=== PATIENT | male | born 1950 | race Caucasian/White ===

== ENCOUNTER 2023-04-16 11:24 | Observation (INO) | payer OTHER ==
--- OUTSIDE RECORDS SUMMARY | 2023-04-16 11:31 | XMS REPORT | Continuity of Care Document ---
:1950 Author Organization [facility] Address [address] [facility] [address] [place] [address] Care Team Providers Name Role Phone PCP, PATIENT DOES NOT HAVE A Primary Care Physician Unavaila [facility]_BAHC_Issa_J Attending Clinician Unavailable DEE DEE ESQUIVEL Attending Clinician Unavailable ZAINAB SENDDANIEL K.H. Attending Clinician Unavailable Jayna Rizvi RN Attending Clinician Ileana Szymanski Attending Clinician Zainab VILLA Senddaniel K.H. Attending Clinician Doctor Unassigned, [place] Attending Clinician Unavailable BLAIR ERVIN Attending Clinician Unavailable BLAIR ERVIN Attending Clinician Unavailable Blair Ervin MD Attending Clinician Lab, Ang - Db Attending Clinician Unavailable PETROS JETER Attending Clinician Unavailable Zak Hernandez Attending Clinician Unavailable Darlene Alvarez RN Attending Clinician Nidia George LVN Attending Clinician ALICIA TALLEY Attending Clinician Unavailable Alicia Talley MD Attending Clinician DANIEL KUNZ Attending Clinician Unavailable Bernardo Rodríguez MD Attending Clinician Dalton Chino DO Attending Clinician Shirley VILLA, Zo Victoria Attending Clinician [phone] Daniel Kunz MD Attending Clinician Dick VILLA, Petar Baig Attending Clinician BERNARDO RODRÍGUEZ Attending Clinician Unavailable GC_BAHC_Todd_J Admitting Clinician Unavailable BLAIR ERVIN Admitting Clinician Unavailable DANIEL KUNZ Admitting Clinician Unavailable Daniel Kunz MD Admitting Clinician BERNARDO RODRÍGUEZ Admitting Clinician Unavailable Payers Payer Name Policy Type Policy Number Effective Date Expiration Date S sharri [place]: [id number] 2022 Vertive ([email or web address].com) 00:00:00 [facility] [id number] 2022 COMMUN[place]AN-[place] - 00:00:00 STAR+PLUS (MEDICAID REPLACEMENT - HMO) [facility] STAR PLUS [id number] 2022 00:00:00 MEDICAID - 000 MOVED-MGRHOLD - PENDING Problems Condition Condition Condition Status Onset Resolution Last Treating Co mments Source Name Details Category Date Date Treatment Clinician Date Abscess of Abscess of Problem Active P [facility] skin Skin 5-08 Medical and/or And/or 00:00: subcutaneo Subcutaneo 00 us tissue us Tissue Vitamin D Vitamin D Problem Active Claudia via deficiency Deficiency 4-03 Me dical 00:00: 00 Nicotine Nicotine Problem Active Privi a dependence Dependence 4-03 Me dical 00:00: 00 Prediabete Prediabete Problem Active P [facility]ia s s 4-03 Medical 00:00: 00 Arthritis Arthritis Problem Active [facility]ia via 2-10 Medical 00:00: 00 Lives in a Lives in a Problem Active 2021-10 P [facility]ia nursing Nursing 2-13 Medical home Home 00:00: 00 Hypoalbumi Hypoalbumi Problem Active 2021-10 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-05 Medi yadiel to protein to Protein 00:00: calorie Calorie 00 malnutriti Malnutriti on on 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 [facility] 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 Deficiency 00:00: disorder Disorder 00 Hypercoagu Hypercoagu Problem Active 2021-10 P [facility]ia lability lability 11-20 Medica l state State 00:00: 00 Atrial Atrial Problem Active 2021-10 [facility] fibrillati Fibrillati 11-20 Me dical on on 00:00: 00 Peripheral Peripheral Problem Active 2021-10 P [facility]ia vascular Vascular 11-20 Medica l disease Disease 00:00: 00 Atrial Atrial Disease Active Univers fibrillati fibrillati 7-07 it y of on on 00:00: [place] [facility] DEBORAH (acute DEBORAH (acute Disease Active U nivers kidney kidney 7-06 ity of injury) injury) 00:00: [place] [facility] CVA CVA Disease Active Univers (cerebral (cerebral 6-24 [place]y of infarction [place] Branch Cerebral Cerebral Disease Active Unive rs infarction infarction 5-30 it y of 00:00: [place] [facility] Slurred Slurred Disease Active Univers speech speech 5-29 ity of 00:00: [place] [facility] Primary Primary Problem Active [facility] 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, Type, senile Senile onset Onset Hypertensi Hypertensi Problem Active P rivia ve heart ve Heart Medica l disease Disease Chronic Chronic Problem Active [facility] obstructiv Obstructiv Me dical e lung e Lung disease Disease Homeless Homeless Problem Active Privi a Medical Nicotine Nicotine Problem Active Privi a dependence Dependence Me dical with with current Current use Use Hyperlipid Hyperlipid Problem Active P rivia emia emia Medical Allergies, Adverse Reactions, Alerts Allergy Allergy Status Severity Reaction(s) Onset Inactive Treating Comm ents Source Name Type Date Date Clinician NO KNOWN Drug Active Univers ALLERGIE Class ity of S [facility] Social History Social Habit Start Date Stop Date Quantity Comments Source History SDOH University o f Alcohol Std Drinks [place] [facility] [place] History [facility] University o f Alcohol Comment [place] [facility] History SDOH University o f Physical Activity [facility] Branch History of tobacco Passive smoker Un iversity of use [facility] Exposure to 2023-01-08 2023-01-18 Not sure University of SARS-CoV-2 (event) 00:00:00 10:33:00 [facility] Alcohol intake 2023-01-18 2023-01-18 1.14 /d University of 00:00:00 00:00:00 [place] [facility] Cigarettes smoked 2022-05-19 2022-05-19 Univers ity of current (pack per 00:00:00 00:00:00 [facility] edical day) - Reported Branch Cigarette 2022-05-19 2022-05-19 University of pack-years 00:00:00 00:00:00 [place] [facility] Tobacco use and 2022-05-19 2022-05-19 Smokeless Universit y of exposure 00:00:00 00:00:00 tobacco non-user [facility] dical Branch History SDOH 2022-04-30 2022-04-30 5 University o f Alcohol Frequency 00:00:00 00:00:00 [facility] edical Branch History SDOH 2022-04-30 2022-04-30 5 University o f Alcohol Binge 00:00:00 00:00:00 [place] [facility] History SDVT Social 2022-04-30 2022-04-30 5 Unive rsity of Connections Phone 00:00:00 00:00:00 [facility] edical Branch History SDOH Social 2022-04-30 2022-04-30 5 Unive rsity of Connections Get 00:00:00 00:00:00 [place] [facility] Together Branch History SDOH Social 2022-04-30 2022-04-30 1 Unive rsity of Connections Sabianism 00:00:00 00:00:00 [place] [facility] History SDOH Social 2022-04-30 2022-04-30 1 Unive rsity of Connections 00:00:00 00:00:00 [place] [facility] Membership Branch History SDOH Social 2022-04-30 2022-04-30 1 Unive rsity of Connections 00:00:00 00:00:00 [place] [facility] Meetings Branch History SDOH Social 2022-04-30 2022-04-30 6 Unive rsity of Connections Living 00:00:00 00:00:00 [place] [facility] History SDOH 2022-04-30 2022-04-30 0 University o f Physical Activity 00:00:00 00:00:00 [facility] edical DPW Branch History SDOH Stress 2022-04-30 2022-04-30 3 Unive rsity of 00:00:00 00:00:00 [place] [facility] History SDOH 2022-04-30 2022-04-30 1 University o f Financial 00:00:00 00:00:00 [facility] History SDOH Food 2022-04-30 2022-04-30 3 Univers ity of Worry 00:00:00 00:00:00 [place] [facility] History SDOH Food 2022-04-30 2022-04-30 3 Univers ity of Scarcity 00:00:00 00:00:00 [place] [facility] History SDOH 2022-04-30 2022-04-30 1 University o f Transport Med 00:00:00 00:00:00 [facility] al Branch History SDVT 2022-04-30 2022-04-30 1 [place] o f Transport Non-Med 00:00:00 00:00:00 [facility] Sex Assigned At [birth year] Universit y of 00:00:00 00:00:00 [facility] Smoking Status Start Date Stop Date Source Heavy Tobacco Smoker Reyes cotto Smokes tobacco daily 2022-05-19 00:00:[address] [facility] Ex-smoker 2022-04-30 00:00:00 2022-04-30 00:00:00 [facility] Medications Ordered Filled Start Stop Current Ordering Indication Dosage Frequency Signature Comments Components Source Medication Medication Date Date Medication? Clinician (SIG) Name Name Jarod Olivera No 1 BID Depakote P [facility]ia 125 mg 125 mg 4-13 125 mg Medical tablet,dillan tablet,dillan 00:00: tablet,del yed release yed release 00 ayed Take 1 Take 1 release tablet tablet Take 1 twice a day twice a day tablet by oral by oral twice a route. route. day by oral route. Jarod Camargote No 1 BID Depakote P rivia 125 mg 125 mg 4-13 125 mg Medical tablet,dillan tablet,dillan 00:00: tablet,del yed release yed release 00 ayed Take 1 Take 1 release tablet tablet Take 1 twice a day twice a day tablet by oral by oral twice a route. route. day by oral route. rivastigmin Yes [id number] 3mg Take 1 Univers e tartrate 3-27 01 capsule by ity of 3 mg 00:00: mouth [place] capsule 00 every Medical morning Branch and evening. divalproex 2022-0 Yes [id number] 500mg Take 1 Univers (DEPAKOTE) 3-27 01 tablet by ity of 500 mg EC 00:00: [place] 00 bedtime. [place] Branch rivastigmin 2022-0 Yes [id number] 3mg Take 1 Univers e tartrate 3-27 01 capsule by ity of 3 mg 00:00: mouth [place] capsule 00 every Medical morning Branch and evening. divalproex 2022-0 Yes [id number] 500mg Take 1 Univers (DEPAKOTE) 3-27 01 tablet by ity of 500 mg EC 00:00: [place] 00 bedtime. Medical Branch rivastigmin Yes [id number] 3mg Take 1 Univers e tartrate 3-27 01 capsule by ity of 3 mg 00:00: mouth [place] capsule 00 every Medical morning Branch and evening. divalproex 2022-0 Yes [id number] 500mg Take 1 Univers (DEPAKOTE) 3-27 01 tablet by ity of 500 mg EC 00:00: [place] 00 bedtime. Medical Branch rivastigmin rivastigmin No rivastigmi [facility] e 1.5 mg e 1.5 mg 3-20 ne 1.5 mg Me dical capsule capsule 00:00: capsule Take 1 Take 1 00 Take 1 capsule capsule capsule twice a day twice a day twice a by oral by oral day by route. route. oral route. rivastigmin rivastigmin No rivastigmi [facility] e 1.5 mg e 1.5 mg 3-20 ne 1.5 mg Me dical capsule capsule 00:00: capsule Take 1 Take 1 00 Take 1 capsule capsule capsule twice a day twice a day twice a by oral by oral day by route. route. oral route. rivastigmin 2021-10 Yes [id number] 1.5mg Take 1 Univers e tartrate 2-02 capsule by ity of 1.5 mg 00:00: mouth [place] capsule 00 every Medical morning Branch and evening. rivastigmin 2021-10 Yes [id number] 1.5mg Take 1 Univers e tartrate 2-02 capsule by ity of 1.5 mg 00:00: mouth [place] capsule 00 every Medical morning Branch and evening. rivastigmin 2021-10 Yes [id number] 1.5mg Take 1 Univers e tartrate 2-02 capsule by ity of 1.5 mg 00:00: mouth [place] capsule 00 every Medical morning Branch and evening. rivastigmin 2021-10 Yes [id number] 1.5mg Take 1 Univers e tartrate 2-02 capsule by ity of 1.5 mg 00:00: mouth [place] capsule 00 every Medical morning Branch and evening. rivastigmin 2021-10- No [id number] 1.5mg Take 1 Univers e tartrate 2-02 - capsule by it y of 1.5 mg 00:00: 00:00 mouth [place] capsule 00 :00 every Medical morning Branch and evening. rivastigmin 2021-10- No [id number] 1.5mg Take 1 Univers e tartrate 2-02 - capsule by it y of 1.5 mg 00:00: 00:00 mouth [place] capsule 00 :00 every Medical morning Branch and evening. rivastigmin 2021-10- No [id number] 1.5mg Take 1 Univers e tartrate 2-02 - capsule by it y of 1.5 mg 00:00: 00:00 mouth [place] capsule 00 :00 every Medical morning Branch and evening. carvediloL 2021-10 Yes 6.25mg Take 6.25 Univers 6.25 mg 1-17 mg by ity of tablet 12:49: mouth in [place] [address] the Medical morning Branch and 6.25 mg in the evening. Take with meals. carvediloL 2021-10 Yes 6.25mg Take 6.25 Univers 6.25 mg 1-17 mg by ity of tablet 12:49: mouth in [place] [address] the Medical morning Branch and 6.25 mg in the evening. Take with meals. carvediloL 2021-10 Yes 6.25mg Take 6.25 Univers 6.25 mg 1-17 mg by ity of tablet 12:49: mouth in [place] [address] the Medical morning Branch and 6.25 mg in the evening. Take with meals. carvediloL 2021-10 Yes 6.25mg Take 6.25 Univers 6.25 mg 1-17 mg by ity of tablet 12:49: mouth in [place] [address] the Medical morning Branch and 6.25 mg in the evening. Take with meals. carvediloL 2021-10 Yes 6.25mg Take 6.25 Univers 6.25 mg 1-17 mg by ity of tablet 12:49: mouth in [place] [address] the Medical morning Branch and 6.25 mg in the evening. Take with meals. carvediloL 2021-10 Yes 6.25mg Take 6.25 Univers 6.25 mg 1-17 mg by ity of tablet 12:49: mouth in [place] [address] the Medical morning Branch and 6.25 mg in the evening. Take with meals. carvediloL 2021-10 Yes 6.25mg Take 6.25 Univers 6.25 mg 1-17 mg by ity of tablet 12:49: mouth in [place] [address] the Medical morning Branch and 6.25 mg in the evening. Take with meals. carvediloL 2021-10 Yes 6.25mg Take 6.25 Univers 6.25 mg 1-17 mg by ity of tablet 12:49: mouth in [place] [address] the Medical morning Branch and 6.25 mg in the evening. Take with meals. carvediloL 2021-10 Yes 6.25mg Take 6.25 Univers 6.25 mg 1-17 mg by ity of tablet 12:49: mouth in [place] [address] the Medical morning Branch and 6.25 mg in the evening. Take with meals. carvediloL 2021-10 Yes 6.25mg Take 6.25 Univers 6.25 mg 1-17 mg by ity of tablet 12:49: mouth in [place] [address] the Medical morning Branch and 6.25 mg in the evening. Take with meals. carvediloL 2021-10 Yes 6.25mg Take 6.25 Univers 6.25 mg 1-17 mg by ity of tablet 12:49: mouth in [place] [address] the Medical morning Branch and 6.25 mg in the evening. Take with meals. carvediloL 2021-10 Yes 6.25mg Take 6.25 Univers 6.25 mg 1-17 mg by ity of tablet 12:49: mouth in [place] [address] the Medical morning Branch and 6.25 mg in the evening. Take with meals. carvediloL 2021-10 Yes 6.25mg Take 6.25 Univers 6.25 mg 0-28 mg by ity of tablet 09:12: mouth in [place] [address] the Medical morning Branch and 6.25 mg in the evening. Take with meals. atorvastati 2021-10 Yes 40mg Take 40 mg Univers n 40 mg 0-28 by mouth ity of tablet 09:12: at [place] [address] bedtime. Medical Branch carvediloL 2021-10 Yes 6.25mg Take 6.25 Univers 6.25 mg 0-28 mg by ity of tablet 09:12: mouth in [place] [address] the Medical morning Branch and 6.25 mg in the evening. Take with meals. atorvastati 2021-10 Yes 40mg Take 40 mg Univers n 40 mg 0-28 by mouth ity of tablet 09:12: at [place] [address] bedtime. Medical Branch carvediloL 2021-10 Yes 6.25mg Take 6.25 Univers 6.25 mg 0-28 mg by ity of tablet 09:12: mouth in [place] [address] the Medical morning Branch and 6.25 mg in the evening. Take with meals. atorvastati 2021-10 Yes 40mg Take 40 mg Univers n 40 mg 0-28 by mouth ity of tablet 09:12: at [place] [address] bedtime. Medical Branch carvediloL 2021-10 Yes 6.25mg Take 6.25 Univers 6.25 mg 0-28 mg by ity of tablet 09:12: mouth in [place] [address] the Medical morning Branch and 6.25 mg in the evening. Take with meals. atorvastati 2021-10 Yes 40mg Take 40 mg Univers n 40 mg 0-28 by mouth ity of tablet 09:12: at [place] [address] bedtime. Medical Branch carvediloL 2021-10 Yes 6.25mg Take 6.25 Univers 6.25 mg 0-28 mg by ity of tablet 09:12: mouth in [place] [address] the Medical morning Branch and 6.25 mg in the evening. Take with meals. atorvastati 2021-10 Yes 40mg Take 40 mg Univers n 40 mg 0-28 by mouth ity of tablet 09:12: at [place] [address] bedtime. Medical Branch carvediloL 2021-10 Yes 6.25mg Take 6.25 Univers 6.25 mg 0-28 mg by ity of tablet 09:12: mouth in [place] [address] the Medical morning Branch and 6.25 mg in the evening. Take with meals. atorvastati 2021-10 Yes 40mg Take 40 mg Univers n 40 mg 0-28 by mouth ity of tablet 09:12: at [place] [address] bedtime. Medical Branch atorvastati 2021-10 Yes 40mg Take 40 mg Univers n 40 mg 0-28 by mouth ity of tablet 09:12: at [place] [address] bedtime. Medical Branch atorvastati 2021-10 Yes 40mg Take 40 mg Univers n 40 mg 0-28 by mouth ity of tablet 09:12: at [place] [address] bedtime. Medical Branch atorvastati 2021-10 Yes 40mg Take 40 mg Univers n 40 mg 0-28 by mouth ity of tablet 09:12: at [place] [address] bedtime. Medical Branch atorvastati 2021-10 Yes 40mg Take 40 mg Univers n 40 mg 0-28 by mouth ity of tablet 09:12: at [place] [address] bedtime. Medical Branch atorvastati 2021-10 Yes 40mg Take 40 mg Univers n 40 mg 0-28 by mouth ity of tablet 09:12: at [place] [address] bedtime. Medical Branch atorvastati 2021-10 Yes 40mg Take 40 mg Univers n 40 mg 0-28 by mouth ity of tablet 09:12: at [place] [address] bedtime. Medical Branch atorvastati 2021-10 Yes 40mg Take 40 mg Univers n 40 mg 0-28 by mouth ity of tablet 09:12: at [place] [address] bedtime. Medical Branch atorvastati 2021- Yes 40mg Take 40 mg Univers n 40 mg 0-28 by mouth ity of tablet 09:12: at [place] [address] bedtime. Medical Branch atorvastati 2021-10 Yes 40mg Take 40 mg Univers n 40 mg 0-28 by mouth ity of tablet 09:12: at [place] [address] bedtime. Medical Branch atorvastati 2021- Yes 40mg Take 40 mg Univers n 40 mg 0-28 by mouth ity of tablet 09:12: at [place] [address] bedtime. Medical Branch atorvastati 2021- Yes 40mg Take 40 mg Univers n 40 mg 0-28 by mouth ity of tablet 09:12: at [place] [address] bedtime. Medical Branch atorvastati 2021- Yes 40mg Take 40 mg Univers n 40 mg 0-28 by mouth ity of tablet 09:12: at [place] [address] bedtime. Medical Branch carvediloL Yes 6.25mg Take 6.25 Univers (COREG) 7-26 mg by ity of 6.25 mg 12:55: mouth in [place] tablet 25 the Medical morning Branch and 6.25 mg in the evening. Take with meals. atorvastati 0 Yes 40mg Take 40 mg Univers n 40 mg 7-26 by mouth ity of tablet 12:55: at [place] [address] bedtime. Medical Branch carvediloL Yes 6.25mg Take 6.25 Univers (COREG) 7-26 mg by ity of 6.25 mg 12:55: mouth in [place] tablet 25 the Medical morning Branch and 6.25 mg in the evening. Take with meals. atorvastati Yes 40mg Take 40 mg Univers n 40 mg 7-26 by mouth ity of tablet 12:55: at [place] [address] bedtime. Medical Branch carvediloL Yes 6.25mg Take 6.25 Univers (COREG) 7-26 mg by ity of 6.25 mg 12:55: mouth in [place] tablet 25 the Medical morning Branch and 6.25 mg in the evening. Take with meals. atorvastati 0 Yes 40mg Take 40 mg Univers n 40 mg 7-26 by mouth ity of tablet 12:55: at [place] [address] bedtime. Medical Branch carvediloL Yes 6.25mg Take 6.25 Univers (COREG) 7-26 mg by ity of 6.25 mg 12:55: mouth in [place] tablet 25 the Medical morning Branch and 6.25 mg in the evening. Take with meals. atorvastati 0 Yes 40mg Take 40 mg Univers n 40 mg 7-26 by mouth ity of tablet 12:55: at [place] [address] bedtime. Medical Branch carvediloL Yes 6.25mg Take 6.25 Univers (COREG) 7-26 mg by ity of 6.25 mg 12:55: mouth in [place] tablet 25 the Medical morning Branch and 6.25 mg in the evening. Take with meals. atorvastati 2021-0 Yes 40mg Take 40 mg Univers n 40 mg 7-26 by mouth ity of tablet 12:55: at [place] [address] bedtime. Medical Branch carvediloL 0 Yes 6.25mg Take 6.25 Univers (COREG) 7-26 mg by ity of 6.25 mg 12:55: mouth in [place] tablet 25 the Medical morning Branch and 6.25 mg in the evening. Take with meals. atorvastati 0 Yes 40mg Take 40 mg Univers n 40 mg 7-26 by mouth ity of tablet 12:55: at [place] [address] bedtime. Medical Branch carvediloL 0 Yes 6.25mg Take 6.25 Univers (COREG) 7-26 mg by ity of 6.25 mg 12:55: mouth in [place] tablet 25 the Medical morning Branch and 6.25 mg in the evening. Take with meals. atorvastati 0 Yes 40mg Take 40 mg Univers n 40 mg 7-26 by mouth ity of tablet 12:55: at [place] [address] bedtime. Medical Branch carvediloL Yes 6.25mg Take 6.25 Univers (COREG) 7-26 mg by ity of 6.25 mg 12:55: mouth in [place] tablet 25 the Medical morning Branch and 6.25 mg in the evening. Take with meals. atorvastati 0 Yes 40mg Take 40 mg Univers n 40 mg 7-26 by mouth ity of tablet 12:55: at [place] [address] bedtime. Medical Branch carvediloL Yes 6.25mg Take 6.25 Univers (COREG) 7-26 mg by ity of 6.25 mg 12:55: mouth in [place] tablet 25 the Medical morning Branch and 6.25 mg in the evening. Take with meals. atorvastati 2021-0 Yes 40mg Take 40 mg Univers n 40 mg 7-26 by mouth ity of tablet 12:55: at [place] [address] bedtime. Medical Branch carvediloL 0 Yes 6.25mg Take 6.25 Univers (COREG) 7-26 mg by ity of 6.25 mg 12:55: mouth in [place] tablet 25 the Medical morning Branch and 6.25 mg in the evening. Take with meals. atorvastati 2021-0 Yes 40mg Take 40 mg Univers n 40 mg 7-26 by mouth ity of tablet 12:55: at [place] [address] bedtime. Medical Branch carvediloL Yes 6.25mg Take 6.25 Univers (COREG) 7-26 mg by ity of 6.25 mg 12:55: mouth in [place] tablet 25 the Medical morning Branch and 6.25 mg in the evening. Take with meals. atorvastati Yes 40mg Take 40 mg Univers n 40 mg 7-26 by mouth ity of tablet 12:55: at [place] [address] bedtime. [facility] Branch carvediloL 0 Yes 6.25mg Take 6.25 Univers (COREG) 7-26 mg by ity of 6.25 mg 12:55: mouth in [place] tablet 25 the Medical morning Branch and 6.25 mg in the evening. Take with meals. atorvastati Yes 40mg Take 40 mg Univers n 40 mg 7-26 by mouth ity of tablet 12:55: at [place] [address] bedtime. [facility] Branch carvediloL Yes 6.25mg Take 6.25 Univers (COREG) 7-26 mg by ity of 6.25 mg 12:55: mouth in [place] tablet 25 the [facility] morning Branch and 6.25 mg in the evening. Take with meals. atorvastati Yes 40mg Take 40 mg Univers n 40 mg 7-26 by mouth ity of tablet 12:55: at [place] [address] bedtime. [facility] NaCl 0.9% 2021- No 1000mL at 999 Uni vers (NS) bolus 05-02-09 mL/hr, ity of infusion 18:15: 19:04 1,000 mL, Jey as 1,000 mL 00 :00 IV Medical Infusion, Branch ONCE, 1 dose, On 05/02/22 at 1315, ARU[place] No known No No known Unive rs medications 05-02 medication it y of 15:35: s [address] No known 0 No No known Unive rs medications 05-02 medication it y of 15:35: s [address] ketorolac 2021- No 10mg 10 mg, Unive rs (TORADOL) 05-01 07-08 Oral, ity of tablet 10 15:00: 15:30 ONCE, 1 [place] mg 00 :00 dose, On Medical Wed05/01/22 Branch at 1000, Routine ketorolac Yes 10mg 10 mg, Univer s (TORADOL) 7-08 Oral, ity of tablet 10 14:56: Q6HPRN, [place] mg 04 Starting Medical on Wed Branch 05/01/22 at 0956, Until Discontinu ed, Routine, Pain (scale 1-3), Pain (scale 4-6) atorvastati Yes 40mg 40 mg, Univ ers n (LIPITOR) 7-08 Oral, QHS, it y of tablet 40 02:00: First dose [place] mg 00 on [facility] 04/30/22 at Branch 2100, Until Discontinu ed, Routine heparin Yes 5000U 5,000 Univers (porcine) 7-08 Units, ity of injection 01:00: Subcutaneo [place] 5,000 Units 00 us, Q12H, Med ical First dose Branch on [facility] 04/30/22 at 2000, Until Discontinu ed, Routine atorvastati 2021- No [id number] 40mg Take 1 Univers n 40 mg 05-01- tablet by ity of tablet 00:00: 04:59 mouth at [place] 00 :00 bedtime Medical for 14 Branch days. carvediloL 2021- No [id number] 6.25mg Take 1 Univers 6.25 mg 05-01- tablet by ity of tablet 00:00: 04:59 mouth 2 [place] 00 :00 (two) Medical times [place] daily with meals for 14 days. atorvastati 2021- No [id number] 40mg Take 1 Univers n 40 mg 05-01- tablet by ity of tablet 00:00: 04:59 mouth at [place] 00 :00 bedtime Medical for 14 Branch days. carvediloL 2021- No [id number] 6.25mg Take 1 Univers 6.25 mg 05-01- tablet by ity of tablet 00:00: 04:59 mouth 2 [place] 00 :00 (two) Medical times [place] daily with meals for 14 days. atorvastati 2021- No [id number] 40mg Take 1 Univers n 40 mg 05-01- tablet by ity of tablet 00:00: 04:59 mouth at [place] 00 :00 bedtime Medical for 14 Branch days. carvediloL 2021- No [id number] 6.25mg Take 1 Univers 6.25 mg 05-01 tablet by ity of tablet 00:00: 04:59 mouth 2 [place] 00 :00 (two) Medical times Branch daily with meals for 14 days. atorvastati 2021- No [id number] 40mg Take 1 Univers n 40 mg 05-01 tablet by ity of tablet 00:00: 04:59 mouth at [place] 00 :00 bedtime Medical for 14 Branch days. carvediloL No [id number] 6.25mg Take 1 Univers 6.25 mg 05-01 tablet by ity of tablet 00:00: 04:59 mouth 2 [place] 00 :00 (two) Medical times Branch daily with meals for 14 days. atorvastati 2021- No [id number] 40mg Take 1 Univers n 40 mg 05-01 tablet by ity of tablet 00:00: 04:59 mouth at [place] 00 :00 bedtime Medical for 14 Branch days. carvediloL No [id number] 6.25mg Take 1 [facility] 6.25 mg 05-01 tablet by ity of tablet 00:00: 04:59 mouth 2 [place] 00 :00 (two) Medical times Branch daily with meals for 14 days. atorvastati 2021- No [id number] 40mg Take 1 [facility] n 40 mg 05-01 tablet by ity of tablet 00:00: 04:59 mouth at [place] 00 :00 bedtime Medical for 14 Branch days. carvediloL No [id number] 6.25mg Take 1 [facility] 6.25 mg 05-01 tablet by ity of tablet 00:00: 04:59 mouth 2 [place] 00 :00 (two) Medical times Branch daily with meals for 14 days. naproxen No [id number] 250mg Take 1 [facility] 250 mg 05-01-16 tablet by ity of tablet 00:00: 04:59 mouth 2 [place] 00 :00 (two) Medical times Branch daily as needed for Pain (scale 4-6) for up to 7 days. naproxen 2021- No [id number] 250mg Take 1 [facility] 250 mg 05-0116 tablet by ity of tablet 00:00: 04:59 mouth 2 [place] 00 :00 (two) Medical times Branch daily as needed for Pain (scale 4-6) for up to 7 days. naproxen 0 2021- No [id number] 250mg Take 1 [facility] 250 mg 05-0116 tablet by ity of tablet 00:00: 04:59 mouth 2 [place] 00 :00 (two) Medical times Branch daily as needed for Pain (scale 4-6) for up to 7 days. naproxen 0 2021- No [id number] 250mg Take 1 [facility] 250 mg 05-01 tablet by ity of tablet 00:00: 04:59 mouth 2 [place] 00 :00 (two) Medical times Branch daily as needed for Pain (scale 4-6) for up to 7 days. naproxen 2021- No [id number] 250mg Take 1 [facility] 250 mg 05-01 tablet by ity of tablet 00:00: 04:59 mouth 2 [place] 00 :00 (two) Medical times Branch daily as needed for Pain (scale 4-6) for up to 7 days. D5W IV 2021- No 1000mL at 75 [facility] infusion 04-3007 mL/hr, IV ity o f 1,000 mL 15:15: 14:13 Infusion, [place] 00 :00 ONCE, 1 Medical dose, On Branch Wed04/30/22 at 1015, Routine NaCl 0.9% 2021- No 1000mL at 100 Uni vers (NS) bolus 04-30 mL/hr, ity of infusion 04:15: 12:00 1,000 mL, [place] 1,000 mL 00 :13 IV Medical Piggyback, Branch CONTINUOUS , Starting on Wed04/29/22 at 2315, Until Wed04/30/22 at 0700, ARUNA carvediloL Yes 6.25mg 6.25 mg, U nivers (COREG) - Oral, BID ity of tablet 6.25 03:30: MEALS, [place] mg 00 First dose Medical on Wed Branch 04/29/22 at 2230, Until Discontinu ed, Routine HEPARIN 2021- No 60U/kg 3,810 [facility] s SODIUM 04-30 07-07 Units (60 ity of (PORCINE) 03:30: 05:27 Units/kg [place] 1,000 00 :00 ?63.5 kg), Medical UNIT/ML IV Push, Branch BOLUS ACS ONCE, 1 ORDER SET dose, On Wed04/29/22 at 2230, ARUNA heparin 2021- No 12U/kg/ 12 [facility] s 25,000 04-30-07 h Units/kg/h ity of Units/250 03:18: 14:43 r ?63.5 kg [place] mL 19 :29 (7.62 Medical (Premixed mL/hr), IV Bran ch Bag) in Infusion, 0.45 % NS TITRATE, Parameters in Admin. Instr., Starting on Wed04/29/22 at 2218
CA UTION - If LMWH given in ER, AVOID bolus and start next dose/drip 12 hrs after ER dosage.&nb sp; M ust program rate using programmab le infusion pump.&nbsp ;&nbsp ;Check with the ordering provider first prior to any administra tion should the patient be on existing/a dditional anticoagul ant therapy. Rang e, Dosing and Testing: &nbs p;FOR [facility], [facility], [facility] ONLY &nbs p; - aPTT < 35: & nbsp;Bolus 5000 units, increase rate 300 units/hr&n bsp; - aPTT 35-44:&nbs p; Reji larry 3000 units, increase rate 200 units/hr&a mp;nbsp; - aPTT 45-54:&nbs p; In crease rate 100 units/hr&n bsp; - aPTT 55-85:&nbs p; NO CHANGE&nbs p; - aPTT 86-95:&nbs p; De crease rate 100 units/hr&n bsp; - aPTT 96-120:&nb sp; H old 30 minutes, decrease rate 150 units/hr&n bsp; - aPTT > 120: Hold 60 minutes, decrease rate 200 units/hr&n bsp; Check aPTT 6 hours after initiation , then Q6H after every change, aPTT Q12H once therapeuti c levels are reached.&n bsp; &nbs p; __ &n bsp;FOR [facility] ONLY - aPTT < 40: & amp;nbsp;B olus 5000 units, increase rate 300 units/hr&n bsp; - aPTT 40-49:&nbs p; Reji larry 3000 units, increase rate 200 units/hr&n bsp; - aPTT 50-59:&nbs p; In crease rate 100 units/hr&n bsp; - aPTT 60-85:&nbs p; NO CHANGE&nbs p; - aPTT 86-95:&nbs p; De crease rate 100 units/hr&n bsp; - aPTT 96-120:&nb sp; H old 30 minutes, decrease rate 150 units/hr&n bsp; - aPTT > 120: Hold 60 minutes, decrease rate 200 units/hr&n bsp; Check aPTT 6 hours after initiation , then Q6H after every change, aPTT Q12H once therapeuti c levels are reached.&n bsp; DO NOT ADJUST INITIAL BOLUS OR INITIAL INFUSION RATE.
acetaminoph Yes 650mg 650 mg, Un natalie en 04-30 Oral, ity of (TYLENOL) 01:46: Q6HPRN, [place] tablet 650 25 Starting Medic al mg on Wed04/29/22 at 2046, Until Discontinu ed, Routine, Pain (scale 1-3) NaCl 0.9% No 1000mL at 999 Uni vers (NS) bolus 04-29 mL/hr, ity of infusion 22:48: 02:01 1,000 mL, [place] 1,000 mL 00 :00 IV Medical Piggyback, Branch ONCE, 1 dose, On Wed04/29/22 at 1800, STAT diltiazem 2021- No 30mg 30 mg, Unive rs (CARDIZEM) 04-29 Oral, ity of tablet 30 22:46: 23:18 ONCE, 1 [place] mg 00 :00 dose, On Wed04/29/22 Branch at 1800, ARUNA diltiazem 2021- No 10mg 10 mg, Unive rs (CARDIZEM 04-29 Slow IV ity of IV) 22:45: 23:59 Push, [place] injection 00 :00 ONCE, 1 Medical 10 mg dose, On Branch Wed04/29/22 at 1800, STAT
Fa culty member approving Restricted medication : DALTON CHINO aspirin 2021- No 324mg 324 mg, Unive rs chewable 04-29 Oral, ity of tablet 324 22:30: 23:18 ONCE, 1 [place] mg 00 :00 dose, On Wed04/29/22 Branch at 1730, STAT lisinopril- 2021- No 1{tbl} Take 1 Tab [facility] hydrochloro 04-29 by mouth ity of thiazide 20:46: 00:00 daily. [place] (PRINZIDE,Z 48 :00 Medical ESTORETIC) Branch 20-25 mg per tablet amLODIPine 2021- No 5mg Take 5 mg U nivers (NORVASC) 5 04-29 by mouth ity of mg tablet 20:46: 00:00 daily. [place] 48 :00 Medical Branch atorvastati 2021- No 20mg Take 20 mg [facility] n (LIPITOR) 04-29 by mouth ity of 20 mg 20:46: 00:00 at [place] tablet 48 :00 bedtime. Medical Branch clopidogrel 2021- No 75mg Take 75 mg [facility] (PLAVIX) 75 04-29 by mouth ity of mg tablet 20:46: 00:00 daily. [place] 48 :00 Medical Branch acetaminoph 2021- No 1000mg Take 1,000 [facility] en (TYLENOL 04-29 mg by ity of EXTRA 20:46: 00:00 mouth [place] STRENGTH) 48 :00 every 6 Medical 500 mg (six) Branch tablet hours as needed for Pain. cephALEXin 2021- No 500mg Take 500 U nivers (KEFLEX) 04-2906 mg by ity of 500 mg 20:46: 00:00 mouth 4 [place] capsule 48 :00 (four) Medical times Branch daily. NaCl 0.9% 2021- No 1000mL at 999 Uni vers (NS) bolus 04-29 mL/hr, ity of infusion 00:45: 02:00 1,000 mL, [place] as 1,000 mL 00 :00 IV Medical Infusion, Branch ONCE, 1 dose, On Wed04/28/22 at 1945, STAT aspirin 2021- No 325mg 325 mg, Unive rs tablet 325 04-28 Oral, ity of mg 23:45: 00:35 ONCE, 1 [place] 00 :00 dose, On Medical Wed04/28/22 Branch at 1845, STAT diltiazem 2021- No 20mg 20 mg, IV Un natalie (CARDIZEM 04-28 Push, ity of IV) 23:45: 23:37 ONCE, 1 [place] injection 00 :00 dose, On Medica l 20 mg Wed04/28/22 Branch at 1845, STAT
Fa culty member approving Restricted medication : BERNARDO RODRÍGUEZ lisinopril- 2013- Yes 1{tbl} Take 1 Tab [facility] hydrochloro 9-04 by mouth ity of thiazide 15:32: daily. [place] (PRINZIDE,Z 57 Medical ESTORETIC) Branch 20-25 mg per tablet amLODIPine Yes 5mg Take 5 mg Un natalie (NORVASC) 5 9-04 by mouth ity of mg tablet 15:32: daily. [place] [address] Medical Branch atorvastati Yes 20mg Take 20 mg Univers n (LIPITOR) 9-04 by mouth ity of 20 mg 15:32: at [place] tablet 57 bedtime. Medical Branch clopidogrel Yes 75mg Take 75 mg [facility] (PLAVIX) 75 9-04 by mouth ity of mg tablet 15:32: daily. [place] [address] Medical Branch acetaminoph Yes 1000mg Take 1,000 [facility] en (TYLENOL 9-04 mg by ity of EXTRA 15:32: mouth [place] STRENGTH) 57 every 6 Medical 500 mg (six) Branch tablet hours as needed for Pain. cephALEXin Yes 500mg Take 500 Un natalie (KEFLEX) 9-04 mg by ity of 500 mg 15:32: mouth 4 [place] capsule 57 (four) Medical times Branch daily. acetaminoph acetaminoph No 1 Q6H acetaminop [facility] en 300 en 300 hen 300 Medical mg-codeine mg-codeine mg-codeine 30 mg 30 mg 30 mg tablet Take tablet Take tablet 1 tablet 1 tablet Take 1 every 6 every 6 tablet hours by hours by every 6 oral route oral route hours by as needed as needed oral route for 10 for 10 as needed days. days. for 10 days. aspirin 81 aspirin 81 No 1 Q1D aspirin 81 [facility] mg mg mg Medical tablet,dillan tablet,dillan tablet,del yed release yed release ayed Take 1 Take 1 release tablet tablet Take 1 every day every day tablet by oral by oral every day route. route. by oral route. atorvastati atorvastati No 1 Q1D atorvastat [facility] n 40 mg n 40 mg in 40 mg Medic al tablet Take tablet Take tablet 1 tablet 1 tablet Take 1 every day every day tablet by oral by oral every day route. route. by oral route. carvedilol carvedilol No 1 BID carvedilol [facility] 6.25 mg 6.25 mg 6.25 mg Medica l tablet Take tablet Take tablet 1 tablet 1 tablet Take 1 twice a day twice a day tablet by oral by oral twice a route. route. day by oral route. cephalexin cephalexin No 1 Q12H cephalexin [facility] 500 mg 500 mg 500 mg Medical tablet Take tablet Take tablet 1 tablet 1 tablet Take 1 every 12 every 12 tablet hours by hours by every 12 oral route. oral route. hours by oral route. ipratropium ipratropium No 3mL Q6H ipratropiu [facility] 0.5 0.5 m 0.5 Medical mg-albutero mg-albutero mg-albuter l 2.5 l 2.5 ol 2.5 mg/2.5 mL mg/2.5 mL mg/2.5 mL solution solution solution for for for nebulizatio nebulizatio nebulizati n Inhale 3 n Inhale 3 on Inhale mL every 6 mL every 6 3 mL every hours by hours by 6 hours by inhalation inhalation inhalation route as route as route as needed. needed. needed. acetaminoph acetaminoph No 1 Q6H acetaminop [facility] en 300 en 300 hen 300 Medical mg-codeine mg-codeine mg-codeine 30 mg 30 mg 30 mg tablet Take tablet Take tablet 1 tablet 1 tablet Take 1 every 6 every 6 tablet hours by hours by every 6 oral route oral route hours by as needed as needed oral route for 10 for 10 as needed days. days. for 10 days. aspirin 81 aspirin 81 No 1 Q1D aspirin 81 [facility] mg mg mg Medical tablet,dillan tablet,dillan tablet,del yed release yed release ayed Take 1 Take 1 release tablet tablet Take 1 every day every day tablet by oral by oral every day route. route. by oral route. atorvastati atorvastati No 1 Q1D atorvastat [facility] n 40 mg n 40 mg in 40 mg Medic al tablet Take tablet Take tablet 1 tablet 1 tablet Take 1 every day every day tablet by oral by oral every day route. route. by oral route. carvedilol carvedilol No 1 BID carvedilol [facility] 6.25 mg 6.25 mg 6.25 mg Medica l tablet Take tablet Take tablet 1 tablet 1 tablet Take 1 twice a day twice a day tablet by oral by oral twice a route. route. day by oral route. ipratropium ipratropium No 3mL Q6H ipratropiu [facility] 0.5 0.5 m 0.5 Medical mg-albutero mg-albutero mg-albuter l 2.5 l 2.5 ol 2.5 mg/2.5 mL mg/2.5 mL mg/2.5 mL solution solution solution for for for nebulizatio nebulizatio nebulizati n Inhale 3 n Inhale 3 on Inhale mL every 6 mL every 6 3 mL every hours by hours by 6 hours by inhalation inhalation inhalation route as route as route as needed. needed. needed. acetaminoph acetaminoph No 1 Q6H acetaminop [facility] en 300 en 300 hen 300 Medical mg-codeine mg-codeine mg-codeine 30 mg 30 mg 30 mg tablet Take tablet Take tablet 1 tablet 1 tablet Take 1 every 6 every 6 tablet hours by hours by every 6 oral route oral route hours by as needed as needed oral route for 10 for 10 as needed days. days. for 10 days. apixaban 5 apixaban 5 No 1 BID apixaban 5 [facility] mg tablet mg tablet mg tablet Medical Take 1 Take 1 Take 1 tablet tablet tablet twice a day twice a day twice a by oral by oral day by route for route for oral route 30 days. 30 days. for 30 days. aspirin 81 aspirin 81 No 1 Q1D aspirin 81 [facility] mg mg mg Medical tablet,dillan tablet,dillan tablet,del yed release yed release ayed Take 1 Take 1 release tablet tablet Take 1 every day every day tablet by oral by oral every day route. route. by oral route. atorvastati atorvastati No 1 Q1D atorvastat [facility] n 40 mg n 40 mg in 40 mg Medic al tablet Take tablet Take tablet 1 tablet 1 tablet Take 1 every day every day tablet by oral by oral every day route. route. by oral route. carvedilol carvedilol No 1 BID carvedilol [facility] 6.25 mg 6.25 mg 6.25 mg Medica l tablet Take tablet Take tablet 1 tablet 1 tablet Take 1 twice a day twice a day tablet by oral by oral twice a route. route. day by oral route. ipratropium ipratropium No 3mL Q6H ipratropiu [facility] 0.5 0.5 m 0.5 Medical mg-albutero mg-albutero mg-albuter l 2.5 l 2.5 ol 2.5 mg/2.5 mL mg/2.5 mL mg/2.5 mL solution solution solution for for for nebulizatio nebulizatio nebulizati n Inhale 3 n Inhale 3 on Inhale mL every 6 mL every 6 3 mL every hours by hours by 6 hours by inhalation inhalation inhalation route as route as route as needed. needed. needed. rivastigmin rivastigmin No 1capsul BID rivastigmi [facility] e 1.5 mg e 1.5 mg e(s) ne 1.5 mg Me dical capsule capsule capsule Take 1 Take 1 Take 1 capsule capsule capsule twice a day twice a day twice a by oral by oral day by route. route. oral route. acetaminoph acetaminoph No 1 Q8H acetaminop [facility] en 300 en 300 hen 300 Medical mg-codeine mg-codeine mg-codeine 30 mg 30 mg 30 mg tablet Take tablet Take tablet 1 tablet 1 tablet Take 1 every 8 every 8 tablet hours by hours by every 8 oral route oral route hours by as needed as needed oral route for 10 for 10 as needed days. days. for 10 days. apixaban 5 apixaban 5 No 1 BID apixaban 5 [facility] mg tablet mg tablet mg tablet Medical Take 1 Take 1 Take 1 tablet tablet tablet twice a day twice a day twice a by oral by oral day by route for route for oral route 30 days. 30 days. for 30 days. aspirin 81 aspirin 81 No 1 Q1D aspirin 81 [facility] mg mg mg Medical tablet,dillan tablet,dillan tablet,del yed release yed release ayed Take 1 Take 1 release tablet tablet Take 1 every day every day tablet by oral by oral every day route. route. by oral route. atorvastati atorvastati No 1 Q1D atorvastat [facility] n 40 mg n 40 mg in 40 mg Medic al tablet Take tablet Take tablet 1 tablet 1 tablet Take 1 every day every day tablet by oral by oral every day route. route. by oral route. carvedilol carvedilol No 1 BID carvedilol [facility] 6.25 mg 6.25 mg 6.25 mg Medica l tablet Take tablet Take tablet 1 tablet 1 tablet Take 1 twice a day twice a day tablet by oral by oral twice a route. route. day by oral route. ipratropium ipratropium No 3mL Q6H ipratropiu [facility] 0.5 0.5 m 0.5 Medical mg-albutero mg-albutero mg-albuter l 2.5 l 2.5 ol 2.5 mg/2.5 mL mg/2.5 mL mg/2.5 mL solution solution solution for for for nebulizatio nebulizatio nebulizati n Inhale 3 n Inhale 3 on Inhale mL every 6 mL every 6 3 mL every hours by hours by 6 hours by inhalation inhalation inhalation route as route as route as needed. needed. needed. rivastigmin rivastigmin No 1capsul BID rivastigmi [facility] e 1.5 mg e 1.5 mg e(s) ne 1.5 mg Me dical capsule capsule capsule Take 1 Take 1 Take 1 capsule capsule capsule twice a day twice a day twice a by oral by oral day by route. route. oral route. acetaminoph acetaminoph No 1 Q8H acetaminop [facility] en 300 en 300 hen 300 Medical mg-codeine mg-codeine mg-codeine 30 mg 30 mg 30 mg tablet Take tablet Take tablet 1 tablet 1 tablet Take 1 every 8 every 8 tablet hours by hours by every 8 oral route oral route hours by as needed as needed oral route for 10 for 10 as needed days. days. for 10 days. apixaban 5 apixaban 5 No 1 BID apixaban 5 [facility] mg tablet mg tablet mg tablet Medical Take 1 Take 1 Take 1 tablet tablet tablet twice a day twice a day twice a by oral by oral day by route for route for oral route 30 days. 30 days. for 30 days. aspirin 81 aspirin 81 No 1 Q1D aspirin 81 [facility] mg mg mg Medical tablet,dillan tablet,dillan tablet,del yed release yed release ayed Take 1 Take 1 release tablet tablet Take 1 every day every day tablet by oral by oral every day route. route. by oral route. atorvastati atorvastati No 1 Q1D atorvastat [facility] n 40 mg n 40 mg in 40 mg Medic al tablet Take tablet Take tablet 1 tablet 1 tablet Take 1 every day every day tablet by oral by oral every day route. route. by oral route. carvedilol carvedilol No 1 BID carvedilol [facility] 6.25 mg 6.25 mg 6.25 mg Medica l tablet Take tablet Take tablet 1 tablet 1 tablet Take 1 twice a day twice a day tablet by oral by oral twice a route. route. day by oral route. diclofenac diclofenac No diclofenac [facility] 1 % topical 1 % topical 1 % M edical gel APPLY 2 gel APPLY 2 topical GRAMS TO GRAMS TO gel APPLY THE THE 2 GRAMS TO AFFECTED AFFECTED THE AREA(S) BY AREA(S) BY AFFECTED TOPICAL TOPICAL AREA(S) BY ROUTE 2 ROUTE 2 TOPICAL TIMES PER TIMES PER ROUTE 2 DAY (KNEES) DAY (KNEES) TIMES PER DAY (KNEES) ipratropium ipratropium No 3mL Q6H ipratropiu [facility] 0.5 0.5 m 0.5 Medical mg-albutero mg-albutero mg-albuter l 2.5 l 2.5 ol 2.5 mg/2.5 mL mg/2.5 mL mg/2.5 mL solution solution solution for for for nebulizatio nebulizatio nebulizati n Inhale 3 n Inhale 3 on Inhale mL every 6 mL every 6 3 mL every hours by hours by 6 hours by inhalation inhalation inhalation route as route as route as needed. needed. needed. rivastigmin rivastigmin No 1capsul BID rivastigmi [facility] e 1.5 mg e 1.5 mg e(s) ne 1.5 mg Me dical capsule capsule capsule Take 1 Take 1 Take 1 capsule capsule capsule twice a day twice a day twice a by oral by oral day by route. route. oral route. acetaminoph acetaminoph No 1 Q8H acetaminop [facility] en 300 en 300 hen 300 Medical mg-codeine mg-codeine mg-codeine 30 mg 30 mg 30 mg tablet Take tablet Take tablet 1 tablet 1 tablet Take 1 every 8 every 8 tablet hours by hours by every 8 oral route oral route hours by as needed as needed oral route for 10 for 10 as needed days. days. for 10 days. aspirin 81 aspirin 81 No 1 Q1D aspirin 81 [facility] mg mg mg Medical tablet,dillan tablet,dillan tablet,del yed release yed release ayed Take 1 Take 1 release tablet tablet Take 1 every day every day tablet by oral by oral every day route. route. by oral route. atorvastati atorvastati No 1 Q1D atorvastat [facility] n 40 mg n 40 mg in 40 mg Medic al tablet Take tablet Take tablet 1 tablet 1 tablet Take 1 every day every day tablet by oral by oral every day route. route. by oral route. carvedilol carvedilol No carvedilol [facility] 6.25 mg 6.25 mg 6.25 mg Medica l tablet Take tablet Take tablet 1 tablet 1 tablet Take 1 twice a day twice a day tablet by oral by oral twice a route. route. day by oral route. cholecalcif cholecalcif No 1capsul Q1W cholecalci [facility] marlee marlee e(s) ferol Medical (vitamin (vitamin (vitamin D3) 1,250 D3) 1,250 D3) 1,250 mcg (50,000 mcg (50,000 mcg unit) unit) (50,000 capsule capsule unit) Take 1 Take 1 capsule capsule capsule Take 1 every week every week capsule by oral by oral every week route for route for by oral 90 days. 90 days. route for 90 days. diclofenac diclofenac No diclofenac [facility] 1 % topical 1 % topical 1 % M edical gel APPLY 2 gel APPLY 2 topical GRAMS TO GRAMS TO gel APPLY THE THE 2 GRAMS TO AFFECTED AFFECTED THE AREA(S) BY AREA(S) BY AFFECTED TOPICAL TOPICAL AREA(S) BY ROUTE 2 ROUTE 2 TOPICAL TIMES PER TIMES PER ROUTE 2 DAY (KNEES) DAY (KNEES) TIMES PER DAY (KNEES) Eliquis 5 Eliquis 5 No Eliquis 5 [facility] mg tablet mg tablet mg tablet Medical Take 1 Take 1 Take 1 tablet tablet tablet twice a day twice a day twice a by oral by oral day by route for route for oral route 30 days. 30 days. for 30 days. ipratropium ipratropium No 3mL Q6H ipratropiu [facility] 0.5 0.5 m 0.5 Medical mg-albutero mg-albutero mg-albuter l 2.5 l 2.5 ol 2.5 mg/2.5 mL mg/2.5 mL mg/2.5 mL solution solution solution for for for nebulizatio nebulizatio nebulizati n Inhale 3 n Inhale 3 on Inhale mL every 6 mL every 6 3 mL every hours by hours by 6 hours by inhalation inhalation inhalation route as route as route as needed. needed. needed. rivastigmin rivastigmin No 1capsul BID rivastigmi [facility] e 1.5 mg e 1.5 mg e(s) ne 1.5 mg Me dical capsule capsule capsule Take 1 Take 1 Take 1 capsule capsule capsule twice a day twice a day twice a by oral by oral day by route. route. oral route. acetaminoph acetaminoph No 1 Q8H acetaminop [facility] en 300 en 300 hen 300 Medical mg-codeine mg-codeine mg-codeine 30 mg 30 mg 30 mg tablet Take tablet Take tablet 1 tablet 1 tablet Take 1 every 8 every 8 tablet hours by hours by every 8 oral route oral route hours by as needed as needed oral route for 10 for 10 as needed days. days. for 10 days. aspirin 81 aspirin 81 No 1 Q1D aspirin 81 [facility] mg mg mg Medical tablet,dillan tablet,dillan tablet,del yed release yed release ayed Take 1 Take 1 release tablet tablet Take 1 every day every day tablet by oral by oral every day route. route. by oral route. atorvastati atorvastati No atorvastat [facility] n 40 mg n 40 mg in 40 mg Medic al tablet Take tablet Take tablet 1 tablet 1 tablet Take 1 every day every day tablet by oral by oral every day route. route. by oral route. carvedilol carvedilol No carvedilol [facility] 6.25 mg 6.25 mg 6.25 mg Medica l tablet Take tablet Take tablet 1 tablet 1 tablet Take 1 twice a day twice a day tablet by oral by oral twice a route. route. day by oral route. cholecalcif cholecalcif No 1capsul Q1W cholecalci [facility] marlee marlee e(s) ferol Medical (vitamin (vitamin (vitamin D3) 1,250 D3) 1,250 D3) 1,250 mcg (50,000 mcg (50,000 mcg unit) unit) (50,000 capsule capsule unit) Take 1 Take 1 capsule capsule capsule Take 1 every week every week capsule by oral by oral every week route for route for by oral 90 days. 90 days. route for 90 days. diclofenac diclofenac No diclofenac [facility] 1 % topical 1 % topical 1 % M edical gel APPLY 2 gel APPLY 2 topical GRAMS TO GRAMS TO gel APPLY THE THE 2 GRAMS TO AFFECTED AFFECTED THE AREA(S) BY AREA(S) BY AFFECTED TOPICAL TOPICAL AREA(S) BY ROUTE 2 ROUTE 2 TOPICAL TIMES PER TIMES PER ROUTE 2 DAY (KNEES) DAY (KNEES) TIMES PER DAY (KNEES) divalproex divalproex No divalproex [facility] 500 mg 500 mg 500 mg Medical tablet,dillan tablet,dillan tablet,del yed release yed release ayed release divalproex divalproex No divalproex [facility] ER 500 mg ER 500 mg ER 500 mg Medical tablet,exte tablet,exte tablet,ext nded nded ended release 24 release 24 release 24 hr hr hr Eliquis 5 Eliquis 5 No Eliquis 5 [facility] mg tablet mg tablet mg tablet Medical Take 1 Take 1 Take 1 tablet tablet tablet twice a day twice a day twice a by oral by oral day by route for route for oral route 30 days. 30 days. for 30 days. ipratropium ipratropium No 3mL Q6H ipratropiu [facility] 0.5 0.5 m 0.5 Medical mg-albutero mg-albutero mg-albuter l 2.5 l 2.5 ol 2.5 mg/2.5 mL mg/2.5 mL mg/2.5 mL solution solution solution for for for nebulizatio nebulizatio nebulizati n Inhale 3 n Inhale 3 on Inhale mL every 6 mL every 6 3 mL every hours by hours by 6 hours by inhalation inhalation inhalation route as route as route as needed. needed. needed. rivastigmin rivastigmin No rivastigmi [facility] e 1.5 mg e 1.5 mg ne 1.5 mg Me dical capsule capsule capsule Take 1 Take 1 Take 1 capsule capsule capsule twice a day twice a day twice a by oral by oral day by route. route. oral route. rivastigmin rivastigmin No rivastigmi [facility] e 3 mg e 3 mg ne 3 mg Medical capsule capsule capsule acetaminoph acetaminoph No 1 Q6H acetaminop [facility] en 300 en 300 hen 300 Medical mg-codeine mg-codeine mg-codeine 30 mg 30 mg 30 mg tablet Take tablet Take tablet 1 tablet 1 tablet Take 1 every 6 every 6 tablet hours by hours by every 6 oral route oral route hours by as needed as needed oral route for 10 for 10 as needed days. days. for 10 days. atorvastati atorvastati No 1 Q1D atorvastat [facility] n 40 mg n 40 mg in 40 mg Medic al tablet Take tablet Take tablet 1 tablet 1 tablet Take 1 every day every day tablet by oral by oral every day route. route. by oral route. acetaminoph acetaminoph No 1 Q8H acetaminop [facility] en 300 en 300 hen 300 Medical mg-codeine mg-codeine mg-codeine 30 mg 30 mg 30 mg tablet Take tablet Take tablet 1 tablet 1 tablet Take 1 every 8 every 8 tablet hours by hours by every 8 oral route oral route hours by as needed as needed oral route for 10 for 10 as needed days. days. for 10 days. carvedilol carvedilol No 1 BID carvedilol [facility] 6.25 mg 6.25 mg 6.25 mg Medica l tablet Take tablet Take tablet 1 tablet 1 tablet Take 1 twice a day twice a day tablet by oral by oral twice a route. route. day by oral route. aspirin 81 aspirin 81 No 1 Q1D aspirin 81 [facility] mg mg [facility] tablet,dillan tablet,dillan tablet,del yed release yed release ayed Take 1 Take 1 release tablet tablet Take 1 every day every day tablet by oral by oral every day route. route. by oral route. atorvastati atorvastati No atorvastat [facility] n 40 mg n 40 mg in 40 mg Medic al tablet Take tablet Take tablet 1 tablet 1 tablet Take 1 every day every day tablet by oral by oral every day route. route. by oral route. carvedilol carvedilol No carvedilol [facility] 6.25 mg 6.25 mg 6.25 mg Medica l tablet Take tablet Take tablet 1 tablet 1 tablet Take 1 twice a day twice a day tablet by oral by oral twice a route. route. day by oral route. cholecalcif cholecalcif No 1capsul Q1W cholecalci [facility] marlee marlee e(s) ferol [facility] (vitamin (vitamin (vitamin D3) 1,250 D3) 1,250 D3) 1,250 mcg (50,000 mcg (50,000 mcg unit) unit) (50,000 capsule capsule unit) Take 1 Take 1 capsule capsule capsule Take 1 every week every week capsule by oral by oral every week route for route for by oral 90 days. 90 days. route for 90 days. Depakote Depakote No 1 BID Depakote [facility] 250 mg 250 mg 250 mg Medical tablet,dillan tablet,dillan tablet,del yed release yed release ayed Take 1 Take 1 release tablet tablet Take 1 twice a day twice a day tablet by oral by oral twice a route. route. day by oral route. diclofenac diclofenac No diclofenac [facility] 1 % topical 1 % topical 1 % M edical gel APPLY 2 gel APPLY 2 topical GRAMS TO GRAMS TO gel APPLY THE THE 2 GRAMS TO AFFECTED AFFECTED THE AREA(S) BY AREA(S) BY AFFECTED TOPICAL TOPICAL AREA(S) BY ROUTE 2 ROUTE 2 TOPICAL TIMES PER TIMES PER ROUTE 2 DAY (KNEES) DAY (KNEES) TIMES PER DAY (KNEES) Eliquis 5 Eliquis 5 No Eliquis 5 [facility] mg tablet mg tablet mg tablet [facility] Take 1 Take 1 Take 1 tablet tablet tablet twice a day twice a day twice a by oral by oral day by route for route for oral route 30 days. 30 days. for 30 days. ipratropium ipratropium No 3mL Q6H ipratropiu [facility] 0.5 0.5 m 0.5 [facility] mg-albutero mg-albutero mg-albuter l 2.5 l 2.5 ol 2.5 mg/2.5 mL mg/2.5 mL mg/2.5 mL solution solution solution for for for nebulizatio nebulizatio nebulizati n Inhale 3 n Inhale 3 on Inhale mL every 6 mL every 6 3 mL every hours by hours by 6 hours by inhalation inhalation inhalation route as route as route as needed. needed. needed. cephalexin cephalexin No 1 Q12H cephalexin [facility] 500 mg 500 mg 500 mg [facility] tablet Take tablet Take tablet 1 tablet 1 tablet Take 1 every 12 every 12 tablet hours by hours by every 12 oral route. oral route. hours by oral route. ipratropium ipratropium No 3mL Q6H ipratropiu [facility] 0.5 0.5 m 0.5 [facility] mg-albutero mg-albutero mg-albuter l 2.5 l 2.5 ol 2.5 mg/2.5 mL mg/2.5 mL mg/2.5 mL solution solution solution for for for nebulizatio nebulizatio nebulizati n Inhale 3 n Inhale 3 on Inhale mL every 6 mL every 6 3 mL every hours by hours by 6 hours by inhalation inhalation inhalation route as route as route as needed. needed. needed. acetaminoph acetaminoph No 1 Q8H acetaminop [facility] en 300 en 300 hen 300 [facility] mg-codeine mg-codeine mg-codeine 30 mg 30 mg 30 mg tablet Take tablet Take tablet 1 tablet 1 tablet Take 1 every 8 every 8 tablet hours by hours by every 8 oral route oral route hours by as needed as needed oral route for 10 for 10 as needed days. days. for 10 days. aspirin 81 aspirin 81 No 1 Q1D aspirin 81 [facility] mg mg mg [facility] tablet,dillan tablet,dillan tablet,del yed release yed release ayed Take 1 Take 1 release tablet tablet Take 1 every day every day tablet by oral by oral every day route. route. by oral route. atorvastati atorvastati No atorvastat [facility] n 40 mg n 40 mg in 40 mg [facility] al tablet Take tablet Take tablet 1 tablet 1 tablet Take 1 every day every day tablet by oral by oral every day route. route. by oral route. carvedilol carvedilol No carvedilol [facility] 6.25 mg 6.25 mg 6.25 mg [facility]ica [facility] tablet Take tablet Take tablet 1 tablet 1 tablet Take 1 twice a day twice a day tablet by oral by oral twice a route. route. day by oral route. cholecalcif cholecalcif No 1capsul Q1W cholecalci [facility]lee marlee e(s) ferol [facility] (vitamin (vitamin (vitamin D3) 1,250 D3) 1,250 D3) 1,250 mcg (50,000 mcg (50,000 mcg unit) unit) (50,000 capsule capsule unit) Take 1 Take 1 capsule capsule capsule Take 1 every week every week capsule by oral by oral every week route for route for by oral 90 days. 90 days. route for 90 days. Depakote Depakote No 1 BID Depakote [facility] 250 mg 250 mg 250 mg [facility] tablet,dillan tablet,dillan tablet,del yed release yed release ayed Take 1 Take 1 release tablet tablet Take 1 twice a day twice a day tablet by oral by oral twice a route. route. day by oral route. diclofenac diclofenac No diclofenac [facility] 1 % topical 1 % topical 1 % M edical gel APPLY 2 gel APPLY 2 topical GRAMS TO GRAMS TO gel APPLY THE THE 2 GRAMS TO AFFECTED AFFECTED THE AREA(S) BY AREA(S) BY AFFECTED TOPICAL TOPICAL AREA(S) BY ROUTE 2 ROUTE 2 TOPICAL TIMES PER TIMES PER ROUTE 2 DAY (KNEES) DAY (KNEES) TIMES PER DAY (KNEES) Eliquis 5 Eliquis 5 No Eliquis 5 [facility] mg tablet mg tablet mg tablet [facility] Take 1 Take 1 Take 1 tablet tablet tablet twice a day twice a day twice a by oral by oral day by route for route for oral route 30 days. 30 days. for 30 days. ipratropium ipratropium No 3mL Q6H ipratropiu [facility] 0.5 0.5 m 0.5 [facility] mg-albutero mg-albutero mg-albuter l 2.5 l 2.5 ol 2.5 mg/2.5 mL mg/2.5 mL mg/2.5 mL solution solution solution for for for nebulizatio nebulizatio nebulizati n Inhale 3 n Inhale 3 on Inhale mL every 6 mL every 6 3 mL every hours by hours by 6 hours by inhalation inhalation inhalation route as route as route as needed. needed. needed. acetaminoph acetaminoph No 1 Q6H acetaminop [facility] en 300 en 300 hen 300 [facility] mg-codeine mg-codeine mg-codeine 30 mg 30 mg 30 mg tablet Take tablet Take tablet 1 tablet 1 tablet Take 1 every 6 every 6 tablet hours by hours by every 6 oral route oral route hours by as needed as needed oral route for 10 for 10 as needed days. days. for 10 days. aspirin 81 aspirin 81 No 1 Q1D aspirin 81 [facility] mg mg [facility] tablet,dillan tablet,dillan tablet,del yed release yed release ayed Take 1 Take 1 release tablet tablet Take 1 every day every day tablet by oral by oral every day route. route. by oral route. atorvastati atorvastati No 1 Q1D atorvastat [facility] n 40 mg n 40 mg in 40 mg [facility] al tablet Take tablet Take tablet 1 tablet 1 tablet Take 1 every day every day tablet by oral by oral every day route. route. by oral route. carvedilol carvedilol No 1 BID carvedilol [facility] 6.25 mg 6.25 mg 6.25 mg [facility]ica [facility] tablet Take tablet Take tablet 1 tablet 1 tablet Take 1 twice a day twice a day tablet by oral by oral twice a route. route. day by oral route. cephalexin cephalexin No 1 Q12H cephalexin [facility] 500 mg 500 mg 500 mg [facility] tablet Take tablet Take tablet 1 tablet 1 tablet Take 1 every 12 every 12 tablet hours by hours by every 12 oral route. oral route. hours by oral route. ipratropium ipratropium No 3mL Q6H ipratropiu [facility] 0.5 0.5 m 0.5 [facility] mg-albutero mg-albutero mg-albuter l 2.5 l 2.5 ol 2.5 mg/2.5 mL mg/2.5 mL mg/2.5 mL solution solution solution for for for nebulizatio nebulizatio nebulizati n Inhale 3 n Inhale 3 on Inhale mL every 6 mL every 6 3 mL every hours by hours by 6 hours by inhalation inhalation inhalation route as route as route as needed. needed. needed. acetaminoph acetaminoph No 1 Q6H acetaminop [facility] en 300 en 300 hen 300 [facility] mg-codeine mg-codeine mg-codeine 30 mg 30 mg 30 mg tablet Take tablet Take tablet 1 tablet 1 tablet Take 1 every 6 every 6 tablet hours by hours by every 6 oral route oral route hours by as needed as needed oral route for 10 for 10 as needed days. days. for 10 days. aspirin 81 aspirin 81 No 1 Q1D aspirin 81 [facility] mg mg [facility] tablet,dillan tablet,dillan tablet,del yed release yed release ayed Take 1 Take 1 release tablet tablet Take 1 every day every day tablet by oral by oral every day route. route. by oral route. atorvastati atorvastati No 1 Q1D atorvastat [facility] n 40 mg n 40 mg in 40 mg [facility] al tablet Take tablet Take tablet 1 tablet 1 tablet Take 1 every day every day tablet by oral by oral every day route. route. by oral route. carvedilol carvedilol No 1 BID carvedilol [facility] 6.25 mg 6.25 mg 6.25 mg [facility] tablet Take tablet Take tablet 1 tablet 1 tablet Take 1 twice a day twice a day tablet by oral by oral twice a route. route. day by oral route. cephalexin cephalexin No 1 Q12H cephalexin [facility] 500 mg 500 mg 500 mg [facility] tablet Take tablet Take tablet 1 tablet 1 tablet Take 1 every 12 every 12 tablet hours by hours by every 12 oral route. oral route. hours by oral route. ipratropium ipratropium No 3mL Q6H ipratropiu [facility] 0.5 0.5 m 0.5 [facility] mg-albutero mg-albutero mg-albuter l 2.5 l 2.5 ol 2.5 mg/2.5 mL mg/2.5 mL mg/2.5 mL solution solution solution for for for nebulizatio nebulizatio nebulizati n Inhale 3 n Inhale 3 on Inhale mL every 6 mL every 6 3 mL every hours by hours by 6 hours by inhalation inhalation inhalation route as route as route as needed. needed. needed. Immunizations Ordered Immunization Filled Immunization Date Status Commen ts Source Name Name pneumococcal pneumococcal 2022-09-24 Completed [facility] polysaccharide PPV23 polysaccharide PPV23 00:00:00 influenza, influenza, 2022-09-24 Completed [facility] unspecified unspecified 00:00:00 formulation formulation pneumococcal pneumococcal 2022-09-24 Completed [facility] polysaccharide PPV23 polysaccharide PPV23 00:00:00 influenza, influenza, 2022-09-24 Completed [facility] unspecified unspecified 00:00:00 formulation formulation pneumococcal pneumococcal 2022-09-24 Completed [facility] polysaccharide PPV23 polysaccharide PPV23 00:00:00 influenza, influenza, 2022-09-24 Completed [facility] unspecified unspecified 00:00:00 formulation formulation pneumococcal pneumococcal 2022-09-24 Completed [facility] polysaccharide PPV23 polysaccharide PPV23 00:00:00 influenza, influenza, 2022-09-24 Completed [facility] unspecified unspecified 00:00:00 formulation formulation pneumococcal pneumococcal 2022-09-24 Completed [facility] polysaccharide PPV23 polysaccharide PPV23 00:00:00 influenza, influenza, 2022-09-24 Completed [facility] unspecified unspecified 00:00:00 formulation formulation pneumococcal pneumococcal 2022-09-24 Completed [facility] polysaccharide PPV23 polysaccharide PPV23 00:00:00 influenza, influenza, 2022-09-24 Completed [facility] unspecified unspecified 00:00:00 formulation formulation pneumococcal pneumococcal 2022-09-24 Completed [facility] polysaccharide PPV23 polysaccharide PPV23 00:00:00 influenza, influenza, 2022-09-24 Completed [facility] unspecified unspecified 00:00:00 formulation formulation pneumococcal pneumococcal 2022-09-24 Completed [facility] polysaccharide PPV23 polysaccharide PPV23 00:00:00 influenza, influenza, 2022-09-24 Completed [facility] unspecified unspecified 00:00:00 formulation formulation pneumococcal pneumococcal 2022-09-24 Completed [facility] polysaccharide PPV23 polysaccharide PPV23 00:00:00 influenza, influenza, 2022-09-24 Completed [facility] unspecified unspecified 00:00:00 formulation formulation pneumococcal pneumococcal 2022-09-24 Completed [facility] polysaccharide PPV23 polysaccharide PPV23 00:00:00 influenza, influenza, 2022-09-24 Completed [facility] unspecified unspecified 00:00:00 formulation formulation pneumococcal pneumococcal 2022-09-24 Completed [facility] polysaccharide PPV23 polysaccharide PPV23 00:00:00 influenza, influenza, 2022-09-24 Completed [facility] unspecified unspecified 00:00:00 formulation formulation SARS-COV-2 COVID-19 2020-12-29 Completed [facility]ACCINE 00:00:00 [facility] SARS-COV-2 COVID-19 2020-12-29 Completed [facility] PFIZER VACCINE 00:00:00 [facility] SARS-COV-2 COVID-19 2020-12-29 Completed [facility] PFIZER VACCINE 00:00:00 [facility] SARS-COV-2 COVID-19 2020-12-29 Completed [facility] PFIZER VACCINE 00:00:00 [facility] SARS-COV-2 COVID-19 2020-12-29 Completed [facility] PFIZER VACCINE 00:00:00 [facility] SARS-COV-2 COVID-19 2020-12-29 Completed [facility] PFIZER VACCINE 00:00:00 [facility] SARS-COV-2 COVID-19 2020-12-29 Completed [facility] PFIZER VACCINE 00:00:00 [facility] SARS-COV-2 COVID-19 2020-12-29 Completed [facility] VACCINE 00:00:00 [facility] SARS-COV-2 COVID-19 2020-12-29 Completed [facility] PFIZER VACCINE 00:00:00 [facility] SARS-COV-2 COVID-19 2020-12-29 Completed [facility] PFIZER VACCINE 00:00:00 [facility] SARS-COV-2 COVID-19 2020-12-29 Completed [facility] PFIZER VACCINE 00:00:00 [facility] SARS-COV-2 COVID-19 2020-12-29 Completed [facility] PFIZER VACCINE 00:00:00 [facility] SARS-COV-2 COVID-19 2020-12-29 Completed [facility] PFIZER VACCINE 00:00:00 [facility] SARS-COV-2 COVID-19 2020-12-29 Completed [facility] PFIZER VACCINE 00:00:00 [facility] SARS-COV-2 COVID-19 2020-12-29 Completed [facility] PFIZER VACCINE 00:00:00 [facility] SARS-COV-2 COVID-19 2020-12-29 Completed [facility] PFIZER VACCINE 00:00:00 [facility] SARS-COV-2 COVID-19 2020-12-29 Completed [facility] PFIZER VACCINE 00:00:00 [facility] SARS-COV-2 COVID-19 2020-12-29 Completed [facility] PFIZER VACCINE 00:00:00 [facility] SARS-COV-2 COVID-19 2020-12-29 Completed [facility] PFIZER VACCINE 00:00:00 [facility] SARS-COV-2 COVID-19 2020-12-29 Completed [facility] PFIZER VACCINE 00:00:00 [facility] SARS-COV-2 COVID-19 2020-12-29 Completed [facility] PFIZER VACCINE 00:00:00 [facility] SARS-COV-2 COVID-19 2020-12-29 Completed [facility] PFIZER VACCINE 00:00:00 [facility] SARS-COV-2 COVID-19 2020-12-29 Completed [facility] PFIZER VACCINE 00:00:00 [facility] SARS-COV-2 COVID-19 2020-12-29 Completed [facility] PFIZER VACCINE 00:00:00 [facility] SARS-COV-2 COVID-19 2020-12-29 Completed [facility] PFIZER VACCINE 00:00:00 [facility] SARS-COV-2 COVID-19 2020-12-29 Completed [facility] PFIZER VACCINE 00:00:00 [facility] SARS-COV-2 COVID-19 2020-12-29 Completed [facility] PFIZER VACCINE 00:00:00 [facility] SARS-COV-2 COVID-19 2020-12-29 Completed [facility] PFIZER VACCINE 00:00:00 [facility] SARS-COV-2 COVID-19 2020-12-29 Completed [facility] PFIZER VACCINE 00:00:00 [facility] SARS-COV-2 COVID-19 2020-12-29 Completed [facility] PFIZER VACCINE 00:00:00 [facility] SARS-COV-2 COVID-19 2020-12-29 Completed [facility] PFIZER VACCINE 00:00:00 [facility] SARS-COV-2 COVID-19 2020-12-29 Completed [facility] PFIZER VACCINE 00:00:00 [facility] SARS-COV-2 COVID-19 2020-12-29 Completed [facility] P[facility]ZER VACCINE 00:00:00 [facility] SARS-COV-2 COVID-19 2020-12-29 Completed [facility] PFIZER VACCINE 00:00:00 [facility] SARS-COV-2 COVID-19 2020-12-29 Completed [facility] PFIZER VACCINE 00:00:00 [facility] SARS-COV-2 COVID-19 2020-12-29 Completed [facility] PFIZER VACCINE 00:00:00 [facility] SARS-COV-2 COVID-19 2020-12-29 Completed [facility] P[facility]ZER VACCINE 00:00:00 [facility] SARS-COV-2 COVID-19 2020-12-29 Completed [facility] PFIZER VACCINE 00:00:00 [facility] SARS-COV-2 COVID-19 2020-12-29 Completed [facility] PFIZER VACCINE 00:00:00 [facility] SARS-COV-2 COVID-19 2020-12-29 Completed [facility] PFIZER VACCINE 00:00:00 [facility] SARS-COV-2 COVID-19 2020-12-07 Completed [facility] PFIZER VACCINE 00:00:00 [facility] SARS-COV-2 COVID-19 2020-12-07 Completed [facility] PFIZER VACCINE 00:00:00 [facility] SARS-COV-2 COVID-19 2020-12-07 Completed [facility] PFIZER VACCINE 00:00:00 [facility] SARS-COV-2 COVID-19 2020-12-07 Completed [facility] PFIZER VACCINE 00:00:00 [facility] SARS-COV-2 COVID-19 2020-12-07 Completed [facility] PFIZER VACCINE 00:00:00 [facility] SARS-COV-2 COVID-19 2020-12-07 Completed [facility] PFIZER VACCINE 00:00:00 [facility] SARS-COV-2 COVID-19 2020-12-07 Completed [facility] PFIZER VACCINE 00:00:00 [facility] SARS-COV-2 COVID-19 2020-12-07 Completed [facility] PFIZER VACCINE 00:00:00 [facility] SARS-COV-2 COVID-19 2020-12-07 Completed [facility] PFIZER VACCINE 00:00:00 [facility] SARS-COV-2 COVID-19 2020-12-07 Completed [facility] PFIZER VACCINE 00:00:00 [facility] SARS-COV-2 COVID-19 2020-12-07 Completed [facility] PFIZER VACCINE 00:00:00 [facility] SARS-COV-2 COVID-19 2020-12-07 Completed [facility] PFIZER VACCINE 00:00:00 [facility] SARS-COV-2 COVID-19 2020-12-07 Completed [facility] PFIZER VACCINE 00:00:00 [facility] SARS-COV-2 COVID-19 2020-12-07 Completed [facility] PFIZER VACCINE 00:00:00 [facility] SARS-COV-2 COVID-19 2020-12-07 Completed [facility] PFIZER VACCINE 00:00:00 [facility] SARS-COV-2 COVID-19 2020-12-07 Completed [facility] PFIZER VACCINE 00:00:00 [facility] SARS-COV-2 COVID-19 2020-12-07 Completed [facility] PFIZER VACCINE 00:00:00 [facility] SARS-COV-2 COVID-19 2020-12-07 Completed [facility] PFIZER VACCINE 00:00:00 [facility] SARS-COV-2 COVID-19 2020-12-07 Completed [facility] PFIZER VACCINE 00:00:00 [facility] SARS-COV-2 COVID-19 2020-12-07 Completed [facility] PFIZER VACCINE 00:00:00 [facility] SARS-COV-2 COVID-19 2020-12-07 Completed [facility] PFIZER VACCINE 00:00:00 [facility] SARS-COV-2 COVID-19 2020-12-07 Completed [facility] PFIZER VACCINE 00:00:00 [facility] SARS-COV-2 COVID-19 2020-12-07 Completed [facility] PFIZER VACCINE 00:00:00 [facility] SARS-COV-2 COVID-19 2020-12-07 Completed [facility] PFIZER VACCINE 00:00:00 [facility] SARS-COV-2 COVID-19 2020-12-07 Completed [facility] PFIZER VACCINE 00:00:00 [facility] SARS-COV-2 COVID-19 2020-12-07 Completed [facility] PFIZER VACCINE 00:00:00 [facility] SARS-COV-2 COVID-19 2020-12-07 Completed [facility] PFIZER VACCINE 00:00:00 [facility] SARS-COV-2 COVID-19 2020-12-07 Completed [facility] PFIZER VACCINE 00:00:00 [facility] SARS-COV-2 COVID-19 2020-12-07 Completed [facility] PFIZER VACCINE 00:00:00 [facility] SARS-COV-2 COVID-19 2020-12-07 Completed [facility] PFIZER VACCINE 00:00:00 [facility] SARS-COV-2 COVID-19 2020-12-07 Completed [facility] PFIZER VACCINE 00:00:00 [facility] SARS-COV-2 COVID-19 2020-12-07 Completed [facility] PFIZER VACCINE 00:00:00 [facility] SARS-COV-2 COVID-19 2020-12-07 Completed [facility] PFIZER VACCINE 00:00:00 [facility] SARS-COV-2 COVID-19 2020-12-07 Completed [facility] PFIZER VACCINE 00:00:00 [facility] SARS-COV-2 COVID-19 2020-12-07 Completed [facility] PFIZER VACCINE 00:00:00 [facility] SARS-COV-2 COVID-19 2020-12-07 Completed [facility] PFIZER VACCINE 00:00:00 [facility] SARS-COV-2 COVID-19 2020-12-07 Completed [facility] PFIZER VACCINE 00:00:00 [facility] SARS-COV-2 COVID-19 2020-12-07 Completed [facility] PFIZER VACCINE 00:00:00 [facility] SARS-COV-2 COVID-19 2020-12-07 Completed [facility] PFIZER VACCINE 00:00:00 [facility] SARS-COV-2 COVID-19 2020-12-07 Completed [facility] PFIZER VACCINE 00:00:00 [facility] Vital Signs Vital Name Observation Time Observation Value Comments Source BP Diastolic 2023-02-05 00:00:00 61 mm[Hg] [facility] Height 2023-02-05 00:00:00 69 [in_i] [facility] BMI (Body Mass 2023-02-05 00:00:00 25.3 kg/m2 [facility] Medical Index) BP Systolic 2023-02-05 00:00:00 113 mm[Hg] [facility] Body Weight 2023-02-05 00:00:00 2736 [oz_av] [facility] BP Diastolic 2023-02-02 00:00:00 88 mm[Hg] [facility] Height 2023-02-02 00:00:00 69 [in_i] [facility] BMI (Body Mass 2023-02-02 00:00:00 26.4 kg/m2 [facility] Medical Index) BP Systolic 2023-02-02 00:00:00 136 mm[Hg] [facility] Body Weight 2023-02-02 00:00:00 2856 [oz_av] [facility] BP Diastolic 2023-01-27 00:00:00 79 mm[Hg] [facility] Height 2023-01-27 00:00:00 69 [in_i] [facility] BMI (Body Mass 2023-01-27 00:00:00 26.3 kg/m2 [facility] Medical Index) BP Systolic 2023-01-27 00:00:00 130 mm[Hg] [facility] Body Weight 2023-01-27 00:00:00 2853 [oz_av] [facility] Systolic blood 2023-01-18 16:37:00 158 mm[Hg] [facility] Diastolic blood 2023-01-18 16:37:00 92 mm[Hg] [facility] pressure [facility] Heart rate 2023-01-18 16:37:00 90 /min [facility] Systolic blood 2023-01-18 15:47:00 155 mm[Hg] [facility] of pressure [facility] Diastolic blood 2023-01-18 15:47:00 109 mm[Hg] [facility] of pressure [facility] Heart rate 2023-01-18 15:45:00 103 /min [facility] Body height 2023-01-18 15:45:[address] [facility] Body weight 2023-01-18 15:45:[address] [facility] BMI 2023-01-18 15:45:00 25.67 kg/m2 [facility] BP Diastolic 2022-12-29 00:00:00 75 mm[Hg] [facility] Height 2022-12-29 00:00:00 69 [in_i] [facility] BMI (Body Mass 2022-12-29 00:00:00 26.3 kg/m2 [facility] Medical Index) BP Systolic 2022-12-29 00:00:00 138 mm[Hg] [facility] Body Weight 2022-12-29 00:00:00 2853 [oz_av] [facility] BP Diastolic 2022-12-15 00:00:00 78 mm[Hg] [facility] Height 2022-12-15 00:00:00 69 [in_i] [facility] BMI (Body Mass 2022-12-15 00:00:00 25[facility] BP Systolic 2022-12-15 00:00:00 138 mm[Hg] [facility] Body Weight 2022-12-15 00:00:00 2784 [oz_av] [facility] BP Diastolic 2022-11-24 00:00:00 81 mm[Hg] [facility] Height 2022-11-24 00:00:00 69 [in_i] [facility] BMI (Body Mass 2022-11-24 00:00:00 25.7 kg/m2 [facility] BP Systolic 2022-11-24 00:00:00 139 mm[Hg] [facility] Body Weight 2022-11-24 00:00:00 2784 [oz_av] [facility] BP Diastolic 2022-10-16 00:00:00 88 mm[Hg] [facility] Height 2022-10-16 00:00:00 69 [in_i] [facility] BMI (Body Mass 2022-10-16 00:00:00 25.8 kg/m2 [facility] BP Systolic 2022-10-16 00:00:00 134 mm[Hg] [facility] Body Weight 2022-10-16 00:00:00 2792 [oz_av] [facility] BP Diastolic 2022-10-09 00:00:00 77 mm[Hg] [facility] Height 2022-10-09 00:00:00 69 [in_i] [facility] BMI (Body Mass 2022-10-09 00:00:00 25.5 kg/m2 [facility] BP Systolic 2022-10-09 00:00:00 138 mm[Hg] Kadieia M ed[facility] Body Weight 2022-10-09 00:00:00 2758 [oz_av] Reyes M edical BP Diastolic 2022-09-29 00:00:00 82 mm[Hg] [facility] Height 2022-09-29 00:00:00 69 [in_i] Reyes Greer edical BMI (Body Mass 2022-09-29 00:00:00 24.8 kg/m2 [facility] Medical Index) BP Systolic 2022-09-29 00:00:00 142 mm[Hg] Reyes M edical Body Weight 2022-09-29 00:00:00 2688 [oz_av] Reyes Greer edical Systolic blood 2022-09-25 21:32:00 150 mm[Hg] Univer sity [facility] Diastolic blood 2022-09-25 21:32:00 92 mm[Hg] Unive rsity [facility] Body height 2022-09-25 15:49:00 175.3 cm [facility] Body Weight 2022-09-22 00:00:00 2688 [oz_av] Reyes M edical BP Diastolic 2022-09-22 00:00:00 77 mm[Hg] Reyes M edical Height 2022-09-22 00:00:00 69 [in_i] Reyes Greer edical BMI (Body Mass 2022-09-22 00:00:00 24.8 kg/m2 [facility] Medical Index) BP Systolic 2022-09-22 00:00:00 138 mm[Hg] Kadieia M edical BP Diastolic 2022-09-15 00:00:00 77 mm[Hg] Reyes M edical BP Systolic 2022-09-15 00:00:00 138 mm[Hg] Reyes M edical Body Weight 2022-09-15 00:00:00 2672 [oz_av] Reyes M edical Systolic blood 2022-09-10 18:52:00 132 mm[Hg] Univer sity [facility] Diastolic blood 2022-09-10 18:52:00 77 mm[Hg] Unive rsity [facility] Heart rate 2022-09-10 18:46:00 75 /min [facility] Respiratory rate 2022-09-10 18:46:00 20 /min [facility] Body height 2022-09-10 18:46:00 175.3 cm [facility] Body weight 2022-09-10 18:46:00 78.835 kg [facility] [place] BMI 2022-09-10 18:46:00 25.67 kg/m2 Universi ty [facility] Oxygen saturation in 2022-09-10 18:46:00 97 /min [facility] of Arterial blood by [employer] Pulse oximetry Branch BP Diastolic 2022-09-08 00:00:00 79 mm[Hg] Reyes Greer edical Height 2022-09-08 00:00:00 69 [in_i] Reyes moreira BMI (Body Mass 2022-09-08 00:00:00 24.7 kg/m2 [facility] Index) BP Systolic 2022-09-08 00:00:00 136 mm[Hg] Reyes moreira Body Weight 2022-09-08 00:00:00 2672 [oz_av] Reyes [facility] Systolic blood 2022-08-21 14:30:00 162 mm[Hg] Univer sity of [facility] Diastolic blood 2022-08-21 14:30:00 106 mm[Hg] Unive rsity of [facility] Heart rate 2022-08-21 14:30:00 65 /min [facility] [place] Body weight 2022-08-21 14:17:00 74.844 kg Universi [facility] BMI 2022-08-21 14:17:00 21.77 kg/m2 Universi [facility] Systolic blood 2022-05-02 20:58:00 170 mm[Hg] Univer sity of [facility] Diastolic blood 2022-05-02 20:58:00 89 mm[Hg] Unive rsity of pressure [facility] Heart rate 2022-05-02 20:58:00 80 /min [facility] [place] Respiratory rate 2022-05-02 20:58:00 16 /min Univ ersity of [facility] Oxygen saturation in 2022-05-02 20:58:00 98 /min University of Arterial blood by [employer] [facility] Body temperature 2022-05-02 16:41:00 36.67 Genevieve [facility] Body weight 2022-05-02 16:41:00 63.957 kg [facility] BMI 2022-05-02 16:41:00 18.61 kg/m2 [facility] Systolic blood 2022-05-01 13:04:00 163 mm[Hg] Univer [facility]ity [facility] Diastolic blood 2022-05-01 13:04:00 91 mm[Hg] Unive rsity [facility] Heart rate 2022-05-01 13:04:00 68 /min [facility] Body temperature 2022-05-01 13:04:00 36.72 Genevieve [facility] Respiratory rate 2022-05-01 13:04:00 18 /min Univ [facility] [place] [facility] Oxygen saturation in 2022-05-01 13:04:00 98 /min University of Arterial blood by [facility] yadiel Pulse oxim[facility] Branch Body height 2022-04-30 12:32:00 185.4 cm [facility] Body weight 2022-04-30 12:32:00 64 kg [facility] BMI 2022-04-30 12:32:00 18.62 kg/m2 [facility] Systolic blood 2022-04-29 02:45:00 154 mm[Hg] Univer sity of [facility] Diastolic blood 2022-04-29 02:45:00 125 mm[Hg] Unive rsity of [facility] Heart rate 2022-04-29 02:45:00 69 /min [facility] Respiratory rate 2022-04-29 02:45:00 20 /min [facility] Oxygen saturation in 2022-04-29 02:45:00 99 /min [facility] of Arterial blood by [facility] yadiel Pulse [facility] Branch Body temperature 2022-04-28 23:07:00 36.61 Genevieve [facility] Body weight 2022-04-28 23:07:00 63.504 kg [facility] BMI 2022-04-28 23:07:00 18.47 kg/m2 [facility] Procedures Procedure Date / Time Performing Clinician Source Performed AUTHORIZATION TO RELEASE 2022-09-10 06:01:00 Doctor Neda, [facility] PHI TO [facility] [place] [facility] [place] [facility] HEAD WO CONTRAST 2022-09-04 18:24:15 Blair Ervin [facility] ASSIGNMENT OF BENEFITS 2022-09-04 18:09:30 [facility] [place] [facility] ASSIGNMENT OF BENEFITS 2022-08-21 13:37:31 Doctor Unassigned, Un [facility] [place] [facility] REFERRAL- 2022-07-21 05:01:00 Doctor Unasssydney, [facility] REQUEST/RESPONSE [place] [facility] REFERRAL- 2022-06-27 05:01:00 Doctor Carrolsssydney, [facility]AD 2022-05-02 20:34:45 Alicia Talley [facility] URINALYSIS 2022-05-02 17:42:00 Alicia Talley [facility] LACTIC ACID WHOLE BLOOD 2022-05-02 17:34:00 Alicia Talley [facility] TROPONIN I 2022-05-02 17:33:00 Alicia Talley [facility] COMP. METABOLIC PANEL 2022-05-02 17:33:[address] ([id number]) Medical Branch ETHANOL 2022-05-02 17:33:00 Alicia Talley [facility] CBC WITH DIFF 2022-05-02 17:33:00 Alicia Talley [facility] CONSENT/REFUSAL FOR 2022-05-02 16:41:24 Doctor Red [facility] DIAGNOSIS AND TREATMENT [place] [facility] [place] PHOSPHORUS 2022-05-01 05:14:00 [place] [facility] MAGNESIUM 2022-05-01 05:14:00 [place] [facility] BASIC METABOLIC PANEL 2022-05-01 05:14:00 [place] [facility] (NA, K, CL, CO2, GLUCOSE, Medica l Branch BUN, CREATININE, CA) TRANSTHORACIC ECHO (TTE) 2022-04-30 19:17:00 Jose Roberto Plaza [facility] COMPLETE [facility] MAGNESIUM 2022-04-30 15:45:00 Jose Roberto Plaza [facility] BASIC METABOLIC PANEL 2022-04-30 15:45:00 Jose Roberto Plaza [facility] (NA, K, CL, CO2, GLUCOSE, Medica l Branch BUN, CREATININE, CA) CT CERVICAL SPINE WO 2022-04-30 15:08:06 [place] [facility] CONTRAST [facility] CT HEAD WO CONTRAST 2022-04-30 15:08:06 [place] [facility] OSMOLALITY URINE 2022-04-30 11:27:00 [facility] (IMMUNOASSAY) 2022-04-30 11:27:00 [place] [facility] DRUG [facility] SCREEN URINALYSIS 2022-04-30 11:27:00 Jose Roberto Plaza [facility] CREATININE, URINE RANDOM 2022-04-30 11:27:00 Jose Roberto Plaza [facility] SODIUM, URINE RANDOM 2022-04-30 11:27:00 Jose Roberto Plaza [facility] ACTIVATED PARTIAL 2022-04-30 11:26:00 Bola [facility] PROTHROMBIN TIME / INR 2022-04-30 05:27:00 Jose Roberto Plaza [facility] ACTIVATED PARTIAL 2022-04-30 05:27:00 [facility] KINASE 2022-04-29 23:20:00 Jose Roberto Plaza [facility] MAGNESIUM 2022-04-29 23:20:00 [facility] OSM[facility], SERUM OR 2022-04-29 23:20:00 Jose Roberto Plaza [facility] PLASMA [facility] TROPONIN I 2022-04-29 23:20:00 Bubba Echevarria [facility] THYROID STIMULATING 2022-04-29 23:20:[address] [facility] HORMONE Medical Branch COMP. METABOLIC PANEL 2022-04-29 23:20:00 Bubba Echevarria [facility] ([id number]) Medical Branch LIPID PANEL ([id number])(TOTAL 2022-04-29 23:20:00 Jose Roberto Plaza [facility] CHOLESTEROL, Medical Branch TRIGLYCERIDES, HDL) CBC WITH DIFF 2022-04-29 23:20:00 Wale [facility] GLYCOSYLATED HEMOGLOBIN 2022-04-29 23:20:00 [facility] [place] N-TERMINAL PRO-BNP 2022-04-29 23:20:00 Wale [facility] FREE T3 2022-04-29 23:20:00 [facility] COVID-19 (ID NOW RAPID 2022-04-29 23:20:00 Wale [facility] TESTING) Medical Branch LAB ONLY COVID 2022-04-29 23:20:[address] [facility] [place] INTERPRETATION [facility] XR CHEST 1 VW 2022-04-29 22:57[facility] & RHYTHM 2022-04-29 21:53:14 Wale [facility] STRIP [facility] XR CHEST 2 VW 2022-04-29 00:46:00 Bernardo Rodríguez [facility] EKG-12 LEAD 2022-04-29 00:23:05 Bernardo Rodríguez [facility] LIPASE 2022-04-29 00:08:00 Bernardo Rodríguez [facility] TROPONIN I 2022-04-29 00:08:00 Bernardo Rodríguez [facility] HEPATIC FUNCTION PANEL 2022-04-29 00:08:00 Bernardo Rodríguez [facility] ([id number]) (ALB,T.PRO,BILI Medical Branch T,BU/BC,ALT,AST,ALK PHOS) BASIC METABOLIC PANEL 2022-04-29 00:08:00 Bernardo Rodríguez [facility] (NA, K, CL, CO2, GLUCOSE, Medica l Branch BUN, CREATININE, CA) CBC WITH DIFF 2022-04-29 00:08:00 Bernardo Rodríguez [facility] N-TERMINAL PRO-BNP 2022-04-29 00:08:00 Bernardo Rodríguez [facility] COVID-19 (ID NOW RAPID 2022-04-29 00:08:00 Bernardo Rodríguez [facility] TESTING) [facility] Encounters Start End Encounter Admission Attending Care Care Encounter Source Date/Time Date/Time Type Type Clinicians Facility Department ID 2023-04-15 2023-04-15 Outpatient [facility] PRIV PRIV [id number] [facility] 00:00:00 00:00:00 d_J [id number] Medica l 2023-04-14 2023-04-14 Outpatient [facility] PRIV PRIV [id number] [facility] 00:00:00 00:00:00 d_J [id number] Medica l 2023-04-13 2023-04-13 Outpatient [facility] PRIV PRIV [id number] [facility] 00:00:00 00:00:00 d_J [id number] Medica l 2023-04-07 2023-04-07 Outpatient [facility] PRIV PRIV [id number] [facility] 00:00:00 00:00:00 d_J [id number] Medica l 2023-03-19 2023-03-19 Outpatient [facility] PRIV PRIV [id number] [facility] 00:00:00 00:00:00 d_J [id number] Medica l 2023-03-10 2023-03-10 Outpatient [facility] PRIV PRIV [id number] [facility] 00:00:00 00:00:00 d_J [id number] Medica l 2023-03-10 2023-03-10 Outpatient [facility] PRIV PRIV [id number] [facility] 00:00:00 00:00:00 d_J [id number] Medica l 2023-03-04 2023-03-04 Outpatient [facility] PRIV PRIV [id number] [facility] 00:00:00 00:00:00 d_J [id number] Medica l 2023-03-02 2023-03-02 Outpatient [facility] PRIV PRIV [id number] [facility] 00:00:00 00:00:00 d_J [id number] Medica l 2023-02-25 2023-02-25 Outpatient [facility] PRIV PRIV [id number] [facility] 00:00:00 00:00:00 d_J [id number] Medica l 2023-02-05 2023-02-05 [facility] 00:00:00 00:00:00 LANDON Parsons: Health - Med ical [address] [place] [address] , Ph. 2023-02-02 2023-02-02 Outpatient [facility] PRIV PRIV [id number] [facility] 00:00:00 00:00:00 d_J [id number] Medica l 2023-02-02 2023-02-02 Outpatient [facility] PRIV PRIV [id number] [facility] 00:00:00 00:00:00 d_J [id number] Medica l 2023-02-02 2023-02-02 Outpatient [facility] PRIV PRIV [id number] [facility] 00:00:00 00:00:00 d_J [id number] Medica l 2023-02-02 2023-02-02 Outpatient [facility] PRIV PRIV [id number] [facility] 00:00:00 00:00:00 d_J [id number] Medica l 2023-02-02 2023-02-02 Pino Johnsonne [facility] 202 [id number] [facility] 00:00:00 00:00:00 Juan Pablo Health - Med ical MD: [address] [address] , Ph. 2023-01-27 2023-01-27 Randi [facility] [id number] [facility] 00:00:00 00:00:00 LANDON Parsons: Health - Med ical [address] [address] , Ph. 2023-01-20 2023-01-20 Outpatient [facility]Tod PRIV PRIV [id number] [facility] 00:00:00 00:00:00 d_J [id number] Medica l 2023-01-20 2023-01-20 Outpatient [facility] PRIV PRIV [id number] [facility] 00:00:00 00:00:00 d_J [id number] Medica l 2023-01-20 2023-01-20 Outpatient [facility] PRIV PRIV [id number] [facility] 00:00:00 00:00:00 d_J [id number] Medica l 2023-01-18 2023-01-18 [facility]patient [facility] [id number] Univers 11:00:00 11:31:14 [facility] 2023-01-18 2023-01-18 Office [facility] 1.2.840.114 [id number] Univers 11:00:00 11:31:14 Visit Dee Dee [employer] 350.1.13.10 it y of [place] 4.2.7.2.686 Jey as STEPAN?BLEA [id number] [address] OFFICE [facility] 2023-01-12 2023-01-12 Telephone [facility] [id number] [id number] Univers 00:00:00 00:00:00 Dee [employer] 350.1.13.10 it y of [place] 4.2.7.2.686 Jey as STEPAN?BLEA [id number] [address] OFFICE [facility] 2022-12-29 2022-12-29 Randi [facility] 307 [facility] 00:00:00 00:00:00 LANDON Parsons: Health - Med ical [address] [address] , Ph. 2022-12-19 2022-12-19 Outpatient [facility] PRIV PRIV [id number] [facility] 00:00:00 00:00:00 d_J [id number] Medica l 2022-12-19 2022-12-19 Outpatient [facility] PRIV PRIV 253 [id number] [facility] 00:00:00 00:00:00 d_J [id number] Medica l 2022-12-18 2022-12-18 Outpatient [facility] PRIV PRIV [id number] [facility] 00:00:00 00:00:00 d_J [id number] Medica l 2022-12-15 2022-12-15 Randi [facility] 221 [facility] 00:00:00 00:00:00 LANDON Parsons: Health - Med ical [address] [address] , Ph. 2022-12-08 2022-12-08 Outpatient [facility] [id number] Univers 15:30:00 15:30:00 [facility] 2022-11-24 2022-11-24 Randi [facility] 131 [facility] 00:00:00 00:00:00 LANDON Parsons: Health - Med ical [address] [place] [address] , Ph. 2022-11-10 2022-11-10 Outpatient Betty [facility] [id number] Univers 15:30:00 15:30:00 [facility] 2022-11-02 2022-11-02 Patient Jayna Rizvi 1.2.840.114 [id number] Univers 00:00:00 00:00:00 Outreach E JOSELIN 350.1.13.10 fernando Arana 4.2.7.2.686 Zach ribera [id number] [address] 2022-10-30 2022-10-30 Outpatient [facility] PRIV PRIV [id number] [facility] 00:00:00 00:00:00 d_J [id number] Medica l 2022-10-30 2022-10-30 Outpatient [facility] PRIV PRIV [id number] [facility] 00:00:00 00:00:00 d_J [id number] Medica l 2022-10-30 2022-10-30 Outpatient [facility] PRIV PRIV [id number] [facility] 00:00:00 00:00:00 d_J [id number] Medica l 2022-10-29 2022-10-29 Outpatient [facility]Tod PRIV PRIV [id number] [facility] 00:00:00 00:00:00 d_J [id number] Medica l 2022-10-29 2022-10-29 Outpatient [facility]Tod PRIV PRIV [id number] [facility] 00:00:00 00:00:00 d_J [id number] Medica l 2022-10-16 2022-10-16 Randi [facility] [id number] [facility] 00:00:00 00:00:00 LANDON Parsons: Health - Med ical [address] [place] [address] , Ph. 2022-10-09 2022-10-09 Randi [facility] [id number] [facility] 00:00:00 00:00:00 LANDON Parsons: Health - Med ical [address] [place] [address] , Ph. 2022-10-03 2022-10-03 Outpatient [facility]Tod PRIV PRIV [id number] [facility] 00:00:00 00:00:00 d_J [id number] Medica l 2022-10-03 2022-10-03 Outpatient [facility]Tod PRIV PRIV [id number] [facility] 00:00:00 00:00:00 d_J [id number] Medica l 2022-10-03 2022-10-03 Outpatient [facility] PRIV PRIV [id number] [facility] 00:00:00 00:00:00 d_J [id number] Medica l 2022-10-03 2022-10-03 Outpatient [facility] PRIV PRIV [id number] [facility] 00:00:00 00:00:00 d_J [id number] Medica l 2022-10-03 2022-10-03 Outpatient [facility] PRIV PRIV [id number] [facility] 00:00:00 00:00:00 d_J [id number] Medica l 2022-10-03 2022-10-03 Outpatient [facility]Tod PRIV PRIV [id number] [facility] 00:00:00 00:00:00 d_J [id number] Medica l 2022-09-29 2022-09-29 Outpatient [facility]Tod PRIV PRIV [id number] [facility] 00:00:00 00:00:00 d_J [id number] Medica l 2022-09-29 2022-09-29 Outpatient [facility]Tod PRIV PRIV [id number] [facility] 00:00:00 00:00:00 d_J [id number] Medica l 2022-09-29 2022-09-29 Outpatient [facility]Tod PRIV PRIV 253 [id number] [facility] 00:00:00 00:00:00 d_J [id number] Medica l 2022-09-29 2022-09-29 [facility] 202 [facility] 00:00:00 00:00:00 Juan Pablo [facility] Miquel ferguson MD: [address] [address] , Ph. 2022-09-25 2022-09-25 Outpatient Betty ESQUIVEL [facility] [id number] Univers 10:30:00 10:47:[address] [facility] 2022-09-25 2022-09-25 Office [place] [facility] 1.2.840.114 [id number] Univers 10:30:00 10:47:39 Visit Dee Dee [facility] 350.1.13.10 it y [facility] 4.2.7.2.686 Jey as STEPAN?BLEA [phone] Wa dical KNEY [address] [place] MEDICAL OFFICE BUILDING 2022-09-23 2022-09-23 Patient TRIXIE Szymanski 1.2.840.114 [id number] Univers 00:00:00 00:00:00 Outreach Ileana OLIVERA 350.1.13.10 [place]2.7.2.686 [place] [id number] [address] 2022-09-22 2022-09-22 [facility] 00:00:00 00:00:00 LANDON Parsons: Health - Med ical [address] [place] [address] , Ph. 2022-09-21 2022-09-21 Outpatient [facility]_Tod PRIV PRIV [id number] [facility] 00:00:00 00:00:00 d_J [id number] Medica l 2022-09-20 2022-09-20 Outpatient [facility]_Tod PRIV PRIV [id number] [facility] 00:00:00 00:00:00 d_J [id number] Medica l 2022-09-15 2022-09-15 [facility] 122 [facility] 00:00:00 00:00:00 LANDON Parsons: Health - Med ical [address] [place] [address] , Ph. 2022-09-10 2022-09-10 Outpatient Betty LAMB [facility] [id number] Univers 13:00:00 13:19:43 SENDIL ityoselin of [facility] 2022-09-10 2022-09-10 Office Zainab [facility] 1.2.840.114 [id number] Univers 13:00:00 13:19:43 Visit Naa BECK 350.1.13.10 [place]2.[place] PROF[place] [id number] Wa thao SALMERON [address] [facility] 2022-09-10 2022-09-10 Patient Doctor [facility] 1.2.840.114 [id number] Univers 00:00:00 00:00:00 Secure Msg Unassigned, HEALTH 350.1.13.10 ity of [place] [facility] 4.2.7.2.686 Jey as STEPAN?BLEA [id number] Wa thao [address] MEDICAL OFFICE [facility] 2022-09-10 2022-09-10 Orders Doctor JOSEFA 1.2.840.114 [id number] Univers 00:00:00 00:00:00 Only Unassigned, AUGUSTUS 350.1.13.10 ity of [place] [facility] 4.2.7.2.686 Jey as [id number] [facility] [address] [place] 2022-09-09 2022-09-09 Outpatient [facility]_Tod PRIV PRIV [id number] [facility] 00:00:00 00:00:00 d_J [id number] Medica l 2022-09-08 2022-09-08 [facility] 00:00:00 00:00:00 LANDON Parsons: Health - Med ical [address] [address] , Ph. 2022-09-04 2022-09-04 Outpatient BLAIR YANG [facility] [id number] Univers 12:11:00 23:59:00 BLAIR ERVIN ity of [facility] 2022-09-04 2022-09-04 [facility] [id number] Univers 12:11:00 23:59:00 Encounter Blair Familia BECK 350.1.13.10 ity of [place]2.7.2.[place] [id number] [facility] [address] [place] 2022-09-04 2022-09-04 Orders Doctor JOSEFA 1.2.840.114 [id number] Univers 00:00:00 00:00:00 Only Unassigned, AUGUSTUS 350.1.13.10 ity of [place] [facility] 4.2.7.2.686 Jey as [id number] [address] 2022-08-21 2022-08-21 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 10 ity of [facility] 4.2.7.2.686 Jey as STEPAN?BLEA [phone] [facility] [address] MEDICAL OFFICE [facility] 2022-08-21 2022-08-21 Outpatient R BLAIR ERVIN [facility] [id number] Univers 09:00:00 10:20:[address] [facility] 2022-08-21 2022-08-21 Office Arcadio [facility] 1.2.840.114 [id number] Univers 09:00:00 10:20:54 Visit [facility] 350.1.13.10 ity of [facility] 4.2.7.2.686 Jey as STEPAN?BLEA [phone] [facility] 092 [facility] OFFICE [facility] 2022-08-21 2022-08-21 Orders Doctor JOSEFA 1.2.840.114 [id number] Univers 00:00:00 00:00:00 Only Unassigned, AUGUSTUS 350.1.13.10 ity of [place] [facility] 4.2.7.2.686 Jey as [id number] [address] 2022-08-11 2022-08-11 Patient TRIXIE Szymanski 1.2.840.114 [id number] Univers 00:00:00 00:00:00 Outreach Ileana E OLIVERA 350.1.13.10 i ty of [place] [id number] [facility] [address] 2022-07-30 2022-07-30 Outpatient R CORONA [facility] [id number] [employer] 13:00:00 13:00:00 PETROS olivo [facility] 2022-07-23 2022-07-23 Patient Jayna Rizvi 1.2.840.114 [id number] [employer] 00:00:00 00:00:00 Outreach E OLIVER[place] 350.1.13.10 [place] [phone] [facility] [address] 2022-07-21 2022-07-21 Orders Doctor JOSEFA 1.2.840.114 [id number] [employer] 00:00:00 00:00:00 Only Unassigned, [place] 350.1.13.10 ity of [place] [facility] 4.2.7.2.686 Jey as [phone] [facility] [address] 2022-06-27 2022-06-27 Orders Doctor JOSEFA 1.2.840.114 [id number] [employer] 00:00:00 00:00:00 Only Unassigned, [place] 350.1.13.10 ity of [place] [facility] 4.2.7.2.686 [place] as [phone] [facility] [address] 2022-06-11 2022-06-11 Patient TRIXIE Szymanski 1.2.840.114 [id number] [employer] 00:00:00 00:00:00 Outreach Ileana E OLIVERA 350.1.13.10 [place] [id number] [facility] [address] 2022-06-09 2022-06-09 Patient Dmitri Jayna MARCUM 1.2.840.114 [id number] [employer] 00:00:00 00:00:00 Outreach Cherise OLIVERA 350.1.13.10 [place] [id number] [facility] [address] 2022-06-04 2022-06-04 Patient TRIXIE Spears 1.2.840.114 [id number] [employer] 00:00:00 00:00:00 Outreach Zak OLIVERA 350.1.13.10 [place] [id number] [facility] [address] 2022-05-29 2022-05-29 Patient TRIXIE Spears 1.2.840.114 [id number] [employer] 00:00:00 00:00:00 Outreach Zak ARZOLAY 350.1.13.10 [place] [phone] [address] 2022-05-25 2022-05-25 Patient TRIXIE Spears 1.2.840.114 [id number] [employer] 00:00:00 00:00:00 Outreach Zak Curtis [place]IVER[place] 350.1.13.10 [place] [phone] [address] 2022-05-22 2022-05-22 Patient Jayna RizviGay 1.2.840.114 [id number] [employer] 00:00:00 00:00:00 Outreach E OLIVERA 350.1.13.10 i [place] [phone] [address] 2022-05-20 2022-05-20 Patient TRIXIE Spears 1.2.840.114 [id number] 67 [facility] 00:00:00 00:00:00 Outreach Zak ARZOLAY 350.1.13.10 [id number] [address] 2022-05-19 2022-05-19 Patient Jayna RizviGay 1.2.840.114 [id number] [facility] 10:00:00 11:00:00 Outreach E OLIVERA 350.1.13.10 [place] [id number] [address] 2022-05-18 2022-05-18 Patient Jayna RizviGay 1.2.840.114 [id number] Univers 00:00:00 00:00:00 Outreach E OLIVERA 350.1.13.10 [place] [id number] [address] 2022-05-15 2022-05-15 Patient Jayna RizviGay 1.2.840.114 [id number] [facility] 00:00:00 00:00:00 Outreach E OLIVERA 350.1.13.10 [place] [id number] [address] 2022-05-11 2022-05-11 Patient Kim Darlenejordyn MARCUM 1.2.840.114 [id number] Univers 00:00:00 00:00:00 Outreach OLIVERA 350.1.13.10 [place] [id number] [facility] [address] 2022-05-08 2022-05-08 Transition TRIXIE George 1.2.840.114 [id number] [facility] 00:00:00 00:00:00 of Care Nidia OLIVERA 350.1.13.10 [place] [phone] [facility] [address] 2022-05-06 2022-05-06 Patient Darlene Alvarez TRIXIE 1.2.840.114 [id number] [facility] 00:00:00 00:00:00 Outreach OLIVERA 350.1.13.10 [place] [id number] [facility] [address] 2022-05-04 2022-05-04 Transition TRIXIE George 1.2.840.114 [id number] [facility] 00:00:00 00:00:00 of Care Nidia OLIVERA 350.1.13.10 [place] [id number] [facility] [address] 2022-05-02 2022-05-02 Emergency X MAYANK, [facility] ERT [id number] Univers 11:45:00 16:29:[address] [facility] 2022-05-02 2022-05-02 Emergency Mayank, [place] 1.2.188.342 [id number] Univers 11:45:00 16:29:00 Alicia PEREZ 350.1.13.10 [place] [id number] [facility] [address] 2022-04-29 2022-05-01 Inpatient X SONSTEIN, [facility] ZOEY [id number] Univers 16:35:00 18:23:[address] [facility] 2022-04-29 2022-05-01 [facility] Bernardo Rodríguez 1.2. 840.114 [id number] Univers 16:35:00 18:23:00 Encounter Dalton Chino 350.1.13.10 ity of [facility] 4.2.7.2 .686 [facility] [phone] Medical Petar Jennings [address] 2022-04-28 2022-04-28 Emergency X DELLIS, [facility] ERT [id number] Univers 18:09:00 21:49:00 BERNARDO ity of [facility] 2022-04-28 2022-04-28 Emergency Dellis, [place] 1.2.687.587 [id number] [facility] 18:09:00 21:49:00 [facility] 350.1.13.10 it y of [place] 4.2.7.2.686 Zach ribera [id number] [address] Results Test Description Test Time Test Comments Results Result Comments Source OCCULT BLD,FECAL,IMMUNOASSAY [facility] 2022-07-07 13:12:31 Test Item Value Reference Range Interpretation Comme nts OCCULT BLD, FECAL (test code NEGATIVE NEGATIVE UNLESS OTHERWISE INDICATED, ALL = 12198) TESTING PERFORM ED ATCLINICAL PATHOLOGY [employer] [address] [place] [address] FIELD SUPPORT REPRESENTATIVE: KODI TRIANA M.D. CLIA NUMBER [id number] CAP ACCREDITATION N O. [id number] TSH, THIRD [id number] 04:48:56 Test Item Value Reference Range Interpretation Comments TSH, THIRD GENERATION (test code 0.698 UIU/ML 0.400-4.100 = 2821) PSA, [id number] 04:48:56 Test Item Value Reference Range Interpretation Comments PSA, TOTAL 2.51 NG/ML See_Comment NOTE: Methodol ogy is Zuleika (test code = Jayashree Electroch emiluminescence 2606) Immunoassay tra ceable to WHO reference stand angelo 96/760. UNLESS OTHERWIS E INDICATED, ALL TESTING PERFORM ED ATCLINICAL PATHOLOGY [employer] [address] [place] [address] LABORATORY DIRE CTOR: KODI TRIANA M.D. CLIA NUMBER [id number] [place]. [id number] [A utomated message] The sy stem which generated this result transmitted ref erence range: <=4.00. The ref erence range was not used to int erpret this result as bijan l/abnormal. LIPID [id number] 04:23:44 Test Item Value Reference Range Interpretation Comments CHOLESTEROL (test 199 MG/DL <200 code = 2210) TRIGLYCERIDES (test 136 MG/DL <150 code = 2232) HDL CHOLESTEROL (test 45 MG/DL >39 code = 2220) CALC LDL CHOL (test 129 MG/DL <100 H NOTE: C ALCULATED LDL code = 2237) IS BASED ON CLAIR-MOSER METHOD WHICHINCLUDES ADJUSTABLE TRIGLYCERIDE:VL DL CHOLESTEROL RAT IO.THIS FACTOR VARIES B Y MEASURED TRIGLY CERIDE AND NON-HDLCHOL ESTEROL CONCENTRATIONS WITH INCREASED CALCU LATED LDL SEENIN HIGH ER TRIGLYCERIDE OR LOWER NON-HDL SPECIME NS. FOR MOREINFORMATION , SEE CLIENT ANNOUNCE MENT AT [email or web address] RISK RATIO LDL/HDL 2.87 RATIO <3.55 (test code = 2238) COMPREHENSIVE METABOLIC [id number] 04:23:44 Test Item Value Reference Range Interpretation Comments GLUCOSE (test code = 89 MG/DL 70-99 2216) BUN (test code = 14 MG/DL 8-23 2207) CREATININE (test 0.85 MG/DL 0.80-1.40 code = 2214) eGFR (2020 CKD-EPI) 93 ML/MIN/1.73 >60 (test code = 74059) CALC BUN/CREAT (test 16 RATIO 6-28 code = 2235) SODIUM (test code = 147 MEQ/L 133-146 H 2230) POTASSIUM (test code 4.2 MEQ/L 3.5-5.4 = 2228) CHLORIDE (test code 107 MEQ/L 95-107 = 2215) CARBON DIOXIDE (test 28 MEQ/L 19-31 code = 2206) CALCIUM (test code = 9.9 MG/DL 8.5-10.5 2208) PROTEIN, TOTAL (test 8.0 G/DL 6.1-8.3 code = 2229) ALBUMIN (test code = 4.7 G/DL 3.5-5.2 2200) CALC GLOBULIN (test 3.3 G/DL 1.9-3.7 code = 2240) CALC A/G RATIO (test 1.4 RATIO 1.0-2.6 code = 2234) BILIRUBIN, TOTAL 0.9 MG/DL See_Comment [Automated message] (test code = 2206) The syste m which generated this result transmit adelfo reference range : <=1.2. The refe rence range was not u sed to interpret th is result as normal/abnormal . ALKALINE PHOSPHATASE 94 U/L 40-125 (test code = 2203) AST (test code = 21 U/L 9-50 2217) ALT (test code = 19 U/L 5-50 2218) HEMOGLOBIN [id number] 03:10:09 Test Item Value Reference Range Interpretation Comments HEMOGLOBIN A1c (test code = 31479) 5.5 % 4.2-5.6 CBC W/AUTO DIFF WITH [id number] 01:57:11 Test Item Value Reference Range Interpretation Comments WBC (test code = 8.0 K/UL 3.5-11.0 1001) RBC (test code = 5.18 M/UL 4.50-6.10 1002) HEMOGLOBIN (test code 16.3 G/DL 13.5-17.0 = 1003) HEMATOCRIT (test code 49.1 % 40.0-51.0 = 1004) MCV (test code = 94.8 fL 80.0-99.0 1005) MCH (test code = 31.5 PG 25.0-33.0 1006) MCHC (test code = 33.2 G/DL 31.0-36.0 1007) RDW (test code = 14.8 % 11.5-15.0 1038) NEUTROPHILS (test 66.4 % code = 1008) LYMPHOCYTES (test 23.0 % code = 1010) MONOCYTES (test code 8.4 % = 1011) EOSINOPHILS (test 1.4 % code = 1012) BASOPHILS (test code 0.6 % = 1013) IMMATURE GRANULOCYTES 0.2 % (test code = 1036) NUCLEATED RBCS (test 0.0 /100 WBC'S See_Comment [Aut omated code = 1065) message] The sy stem which generated this result transmitted reference range : 0.0. The refere nce range was not u sed to interpret th is result as normal/abnormal . PLATELET COUNT (test 264 K/UL 130-400 code = 1015) ABSOLUTE NEUTROPHILS 5.32 K/UL 1.50-7.50 (test code = 1066) ABSOLUTE LYMPHOCYTES 1.84 K/UL 1.00-4.00 (test code = 1067) ABSOLUTE MONOCYTES 0.67 K/UL 0.20-1.00 (test code = 1068) ABSOLUTE EOSINOPHILS 0.11 K/UL 0.00-0.50 (test code = 1040) ABSOLUTE BASOPHILS 0.05 K/UL 0.00-0.20 (test code = 1069) ABS IMMATURE 0.02 K/UL 0.00-0.10 GRANULOCYTES (test code = 1020) ABS NUCLEATED RBCS 0.00 K/UL 0.00-0.11 (test code = 50673) Lactic Acid Whole [id number] 17:48:24 Test Item Value Reference Range Interpretation Comments LACTIC ACID (test code = 1.59 mmol/L 0.50-2.20 9789025856) Lab Interpretation (test code = Normal 03956-3) [facility] METABOLIC PANEL (NA, K, CL, CO2, GLUCOSE, BUN, CREATININE, CA)2022-05-01 06:55:06 Test Item Value Reference Range Interpretation Comments NA (test code = 140 mmol/L 135-145 5232825126) K (test code = 3.9 mmol/L 3.5-5.0 5191538437) CL (test code = 111 mmol/L 98-108 H 8286016110) CO2 TOTAL (test code = 24 mmol/L 23-31 2200099271) AGAP (test code = 2-16 8387319291) BUN (test code = 25 mg/dL 7-23 H 0271922826) GLUCOSE (test code = 86 mg/dL 70-110 7660949657) CREATININE (test code = 0.64 mg/dL 0.60-1.25 8943019347) CALCIUM (test code = 8.0 mg/dL 8.6-10.6 L 3132700038) eGFR (test code = mL/min/1.73m2 2639656818) NEYMAR (test code = NEYMAR) Association of Glomerular Filtration Rate (GFR) and Staging of Kidney Disease* + --+ --+ ------+| GFR (mL/min/1.73 m2) ?| With Kidney Damage ?| ?Without Kidney Damage+ --------+ --------+ +| ?>90 ?| ?Stage one ?| ? Normal ?+ ---+ ---+ -------+| ?60-89 ?| ?Stage two ?| ? Decreased GFR ? + --+ --+ ------+| ?30-59 ?| ?Stage three ?| ? Stage three ? + --+ --+ ------+| ?15-29 ?| ?Stage four ? | ? Stage four ?+ ---+ ---+ -------+| ?<15 (or dialysis) ? ?| ?Stage five ? | ? Stage five ?+ ---+ ---+ -------+ *Each stage assumes the associated GFR level has been in effect for at least three months. ?Stages 1 to 5, with or without kidney disease, indicate chronic kidney disease. Notes: Determination of stages one and two (with eGFR >59mL/min/1.73 m2) requires estimation of kidney damage for at least three months as defined by structural or functional abnormalities of the kidney, manifested by either:Pathological abnormalities or Markers of kidney damage (including abnormalities in the composition of the blood or urine or abnormalities in imaging tests). Lab Interpretation Abnormal (test code = 13229-0) [facility] 06:55:06 Test Item Value Reference Range Interpretation Comments MAGNESIUM (test code = 9272358021) 1.9 mg/dL 1.7-2.4 Lab Interpretation (test code = Normal 14186-5) [facility]2022-07-08 06:55:06 Test Item Value Reference Range Interpretation Comments PHOSPHORUS (test code = 8090127446) 2.5 mg/dL 2.5-5.0 Lab Interpretation (test code = Normal 73905-5) [facility]TTE[facility]2022-04-30 20:28:01 Test Item Value Reference Range Interpretation Comments Height (test code = in 4831775979) Weight (test code = lbs 1782183839) Systolic BP (test code mmHg = 8969583430) Diastolic BP (test code mmHg = 9525669856) Heart Rate (test code = bpm 3837467527) LVOT stroke volume 47.40 cm3 (test code = 4145275845) EF(Teich) (test code = 63.50 % 5136886170) LVIDD (test code = 5.20 cm 5261284604) LVIDS (test code = 3.40 cm 7123860773) IVS (test code = 1.24 cm 6494844069) LVPWD (test code = 1.21 cm 0817940885) LVOT diameter (test 2.29 cm code = 7110206834) FS (test code = 35 % 3879493075) MV Peak E Jovon (test 65.6 cm/s code = 6870809126) E wave decelartion time 0.19 s (test code = 5205538366) LVOT peak jovon (test 65.1 cm/s code = 5851827860) LVOT mn grad (test code mmHg = 5419393006) LA size (test code = 3.6 cm 2449214156) Aortic valve mean 73.8 cm/s velocity (test code = 4688853817) Ao peak jovon (test code 115.8 cm/s = 4500628902) Ao VTI (test code = 17.4 cm 1420164685) AV LVOT peak gradient mmHg (test code = 6873164960) LVOT peak VTI (test 11.5 cm code = 3333391265) AV area by cont VTI 2.7 cm2 (test code = 8941925540) AV area peak jovon (test 2.3 cm2 code = 6517279533) LV V1 mean (test code = 40.20 cm/s 4744709912) Ao max PG (test code = 5.40 mm[Hg] 1764054644) MV Prop V (test code = 54.90 cm/s 8084313664) Ao root annulus (test 3.4 cm code = 5115232470) Ao root diam (test code 3.40 cm = 0139800483) AV peak gradient (test mmHg code = 1587697041) AV valve area (test 2.70 cm2 code = 5404233347) AV mean gradient (test mmHg code = 3800346665) Aortic root (test code 3.4 cm = 8277458634) PW (test code = 1.21 cm 0.6-1.3 8321038480) EF - 2D (test code = 63.50 % 51757590) Interventricular Septum 1.24 cm Diastolic Thickness by 2D (test code = 5256498) BSA (test code = 1.84 m2 9154434007) Radiology Study observation (narrative) (test code = 08087-5) NEYMAR (test code = NEYMAR) ?Left?Ventricle: There is mild concentric hypertrophy. Normal wall motion. Normal systolic function with a visually estimated EF of 55 - 60%. Septal motion is normal. Diastolic dysfunction, cannot be graded due to Afib ?Pulmonic?Valve: Pulmonic valve is normal in structure and function. ?Tricuspid?Valve: Tricuspid valve structure is normal. ?Aortic?Valve: No hemodynamically significant . [facility]GLOB[facility] (A1C)2022-04-30 16:26:24 Test Item Value Reference Range Interpretation Comments HGB A1C (test code = 5.5 % 4.0-5.7 4548-4) NEYMAR (test code = NEYMAR) Reference RangesNormal: <5.7%Prediabetes: 5.7 - 6.4%Diabetes: > 6.5% Lab Interpretation (test Normal code = 78926-0) [facility] (NA, K, CL, CO2, GLUCOSE, BUN, CREATININE, CA)2022-04-30 16:15:38 Test Item Value Reference Range Interpretation Comments NA (test code = 144 mmol/L 135-145 7250089013) K (test code = 4.1 mmol/L 3.5-5.0 1193665466) CL (test code = 113 mmol/L 98-108 H 7994188194) CO2 TOTAL (test code = 28 mmol/L 23-31 4717413373) AGAP (test code = 2-16 3686582355) BUN (test code = 31 mg/dL 7-23 H 4195880741) GLUCOSE (test code = 142 mg/dL 70-110 H 0845610696) CREATININE (test code = 0.65 mg/dL 0.60-1.25 7453857020) CALCIUM (test code = 8.4 mg/dL 8.6-10.6 L 1381635316) eGFR (test code = mL/min/1.73m2 7087125414) NEYMAR (test code = NEYMAR) Association of Glomerular Filtration Rate (GFR) and Staging of Kidney Disease* + --+ --+ ------+| GFR (mL/min/1.73 m2) ?| With Kidney Damage ?| ?Without Kidney Damage+ --------+ --------+ +| ?>90 ?| ?Stage one ?| ? Normal ?+ ---+ ---+ -------+| ?60-89 ?| ?Stage two ?| ? Decreased GFR ? + --+ --+ ------+| ?30-59 ?| ?Stage three ?| ? Stage three ? + --+ --+ ------+| ?15-29 ?| ?Stage four ? | ? Stage four ?+ ---+ ---+ -------+| ?<15 (or dialysis) ? ?| ?Stage five ? | ? Stage five ?+ ---+ ---+ -------+ *Each stage assumes the associated GFR level has been in effect for at least three months. ?Stages 1 to 5, with or without kidney disease, indicate chronic kidney disease. Notes: Determination of stages one and two (with eGFR >59mL/min/1.73 m2) requires estimation of kidney damage for at least three months as defined by structural or functional abnormalities of the kidney, manifested by either:Pathological abnormalities or Markers of kidney damage (including abnormalities in the composition of the blood or urine or abnormalities in imaging tests). Lab Interpretation Abnormal (test code = 25909-0) [facility]2022-07-07 16:15:38 Test Item Value Reference Range Interpretation Comments MAGNESIUM (test code = 9843424187) 2.1 mg/dL 1.7-2.4 Lab Interpretation (test code = Normal 17534-3) [facility] (for use with Heparin Infusion)2022-04-30 13:43:36 Test Item Value Reference Range Interpretation Comments APTT Patient (test code See_Comment H [Au tomated message] = 3173-2) The system [employer] generated this result transmitted ref erence range: 26 - 36 Seconds. The reference range was not used to int erpret this result as normal/abnormal . Lab Interpretation (test Abnormal code = 95406-4) [facility] [id number] 06:04:45 Test Item Value Reference Range Interpretation Comments FREE T3 (test code = 4595328556) 2.48 pg/mL 2.77-5.27 L Lab Interpretation (test code = Abnormal 25774-4) [facility]thrombin Time / [id number] 05:58:05 Test Item Value Reference Range Interpretation Comments PROTIME PATIENT (test See_Comment H [Auto mated message] code = 5964-2) The system [employer] generated this result transmitted ref erence range: 10.1 - 1 2.6 Seconds. The reference range was not used to int erpret this result as normal/abnormal . INR (test code = 6301-6) Nor mal INR <1.1; Warfarin Therap eutic range 2.0 to 3. 0 or 2.5 to 3.5, dep ending upon the indica tions. Lab Interpretation (test Abnormal code = 01215-7) [facility]PTT2022-07-07 05:58:05 Test Item Value Reference Range Interpretation Comments APTT Patient (test code = See_Comment [ Automated message] 3173-2) The system [employer] generated this result transmitted ref erence range: 26 - 36 Seconds. The re ference range was not u sed to interpret this result as normal/abnor mal. Lab Interpretation (test Normal code = 86375-4) [facility]cosLIPID PANEL (62446)(TOTAL CHOLESTEROL, TRIGLYCERIDES, HDL)2022-04-30 05:46:07 Test Item Value Reference Range Interpretation Comments CHOL (test code = 180 mg/dL 120-200 5164092925) HDL (test code = 30 mg/dL >40 L 8635021605) HDLC RATIO (test code = See_Comment H [Au tomated message] 6381121190) The system [employer] generated this result transmit adelfo reference range : <=5.0. The refe rence range was not u sed to interpret th is result as normal/abnormal . TRIG (test code = 104 mg/dL 30-170 7030005537) LDL CHOL (test code = 129 mg/dL See_Comment [Auto mated message] 79681-6) The system [employer] generated this result transmit adelfo reference range : <=160. The refe rence range was not u sed to interpret th is result as normal/abnormal . VLDL (test code = 21 mg/dL 5-60 2110181845) Lab Interpretation (test Abnormal code = 55377-6) [facility]2022-07-07 05:46:07 Test Item Value Reference Range Interpretation Comments MAGNESIUM (test code = 7693948532) 2.2 mg/dL 1.7-2.4 Lab Interpretation (test code = Normal 12886-8) [facility]AT[facility] [id number] 05:46:07 Test Item Value Reference Range Interpretation Comments CK (test code = 7666337560) 47 U/L 33-194 Lab Interpretation (test code = Normal 29587-0) [facility]cosOSMOLALITY, SERUM OR [id number] 05:45:32 Test Item Value Reference Range Interpretation Comments OSMOLALITY (test code = See_Comment HH [Au tomated message] 2692-2) The system [employer] generated this result transmitted ref erence range: 278 - 30 5 mOsm/kg. The reference range was not used to int erpret this result as normal/abnormal . Lab Interpretation (test Abnormal code = 86383-6) [facility]cos[facility]YROID STIMULATING [id number] 03:23:38 Test Item Value Reference Range Interpretation Comments TSH (test code = See_Comment L Biotin has been 5216776578) reported to cau se a negative bias, interpret resul ts relative to pat pina's use of biotin. [Automated mess age] The system [employer] generated this result transmitted ref erence range: 0.45 - 4 .70 mIU/L. The refe rence range was not u sed to interpret this result as normal/abnor mal. Lab Interpretation (test Abnormal code = 22436-9) [facility]roponin [id number] 00:18:11 Test Item Value Reference Interpretation Comments Range TROPONIN I (test 0.010 ng/mL See_Comment [Automated code = 0595423766) message] The system which generated this result transmitted reference range : <=0.034. The reference range was not used to interpret this result as normal/abnormal . NEYMAR (test code = Reference (Normal) NEYMAR) Range (defined by the 99th percentile reference limit): <= 0.034 ng/mL Note: Cardiac troponin begins to rise 3-4 hours after the onset of ischemia. Repeat in 4-6 hours if the sample was drawn within 3-4 hours of the onset of the symptom and found normal. Diagnosis of myocardial injury is made with acute changes in cTn concentrations with at least one serial sample above the 99th percentile upper reference limit (URL), taken together with the patient's clinical presentation. Biotin has been reported to cause a negative bias, interpret results relative to patient's use of biotin. Lab Interpretation Normal (test code = 94166-4) [facility]cos[facility]-TERMINAL [id number] 00:18:11 Test Item Value Reference Range Interpretation Comments NT-proBNP (test code 1070 pg/mL See_Comment H [Autom ated = 5294010319) message] The system which generated this result transmitted reference range : <=125. The reference range was not used to interpret this result as normal/abnormal . NEYMAR (test code = NEYMAR) Biotin has been reported to cause a negative bias, interpret results relative to patient's use of biotin. Lab Interpretation Abnormal (test code = 45169-0) [facility]cos[facility]MP2022-07-07 00:04:30 Test Item Value Reference Range Interpretation Comments NA (test code = 152 mmol/L 135-145 H 0973458837) K (test code = 3.9 mmol/L 3.5-5.0 0835575484) CL (test code = 119 mmol/L 98-108 H 6843799315) CO2 TOTAL (test code = 21 mmol/L 23-31 L 9101552882) AGAP (test code = 2-16 6759258756) BUN (test code = 37 mg/dL 7-23 H 1892352412) GLUCOSE (test code = 112 mg/dL 70-110 H 5459992231) CREATININE (test code = 1.25 mg/dL 0.60-1.25 8752149216) TOTAL BILI (test code = 1.3 mg/dL 0.1-1.1 H 5128024391) CALCIUM (test code = 9.2 mg/dL 8.6-10.6 2781512874) T PROTEIN (test code = 7.5 g/dL 6.3-8.2 8364019566) ALBUMIN (test code = 4.4 g/dL 3.5-5.0 3986823782) ALK PHOS (test code = 96 U/L 34-122 5783972077) ALTv (test code = 21 U/L 5-50 1742-6) AST(SGOT) (test code = 21 U/L 13-40 9520751132) eGFR (test code = mL/min/1.73m2 5335816387) NEYMAR (test code = NEYMAR) Association of Glomerular Filtration Rate (GFR) and Staging of Kidney Disease* + --+ --+ ------+| GFR (mL/min/1.73 m2) ?| With Kidney Damage ?| ?Without Kidney Damage+ --------+ --------+ +| ?>90 ?| ?Stage one ?| ? Normal ?+ ---+ ---+ -------+| ?60-89 ?| ?Stage two ?| ? Decreased GFR ? + --+ --+ ------+| ?30-59 ?| ?Stage three ?| ? Stage three ? + --+ --+ ------+| ?15-29 ?| ?Stage four ? | ? Stage four ?+ ---+ ---+ -------+| ?<15 (or dialysis) ? ?| ?Stage five ? | ? Stage five ?+ ---+ ---+ -------+ *Each stage assumes the associated GFR level has been in effect for at least three months. ?Stages 1 to 5, with or without kidney disease, indicate chronic kidney disease. Notes: Determination of stages one and two (with eGFR >59mL/min/1.73 m2) requires estimation of kidney damage for at least three months as defined by structural or functional abnormalities of the kidney, manifested by either:Pathological abnormalities or Markers of kidney damage (including abnormalities in the composition of the blood or urine or abnormalities in imaging tests). Lab Interpretation Abnormal (test code = 81370-3) [facility] acute hospital with [id number] 23:40:41 Test Item Value Reference Range Interpretation Comments WBC (test code = See_Comment H [Automated 1101-2) message] The sy stem which generated this result transmitted reference range : 4.20 - 10.70 10*3/?L. The reference range was not used to interpret this result as normal/abnormal . RBC (test code = See_Comment [Automated 189-8) message] The sy stem which generated this result transmitted reference range : 4.26 - 5.52 10*6/?L. The reference range was not used to interpret this result as normal/abnormal . HGB (test code = 14.9 g/dL 12.2-16.4 718-7) HCT (test code = 43.5 % 38.4-49.3 4544-3) MCV (test code = 94.0 fL 81.7-95.6 787-2) MCH (test code = 32.2 pg 26.1-32.7 785-6) MCHC (test code = 34.3 g/dL 31.2-35.0 786-4) RDW-SD (test code = 50.5 fL 38.5-51.6 34201-9) RDW-CV (test code = 14.7 % 12.1-15.4 788-0) PLT (test code = See_Comment [Automated 777-3) message] The sy stem which generated this result transmitted reference range : 150 - 328 10*3/ ?L. The reference r rohan was not used to interpret this result as normal/abnormal . MPV (test code = 11.5 fL 9.8-13.0 37012-0) NRBC/100 WBC (test See_Comment [Automat ed code = 0122932691) message] The system which generated this result transmitted reference range : 0.0 - 10.0 /100 WBCs. The refer ence range was not u sed to interpret th is result as normal/abnormal . NRBC x10^3 (test code <0.01 See_Comment [Auto mated = 7954628507) message] The s ystem which generated this result transmitted reference range : 10*3/?L. The reference range was not used to interpret this result as normal/abnormal . GRAN MAT (NEUT) % 78.4 % (test code = 770-8) IMM GRAN % (test code 0.50 % = 6628043227) LYMPH % (test code = 9.5 % 736-9) MONO % (test code = 11.0 % 5905-5) EOS % (test code = 0.3 % 713-8) BASO % (test code = 0.3 % 706-2) GRAN MAT x10^3(ANC) 9.11 10*3/uL 1.99-6.95 H (test code = 5349136622) IMM GRAN x10^3 (test 0.06 10*3/uL 0.00-0.06 code = 0543722895) LYMPH x10^3 (test code 1.10 10*3/uL 1.09-3.23 = 731-0) MONO x10^3 (test code 1.28 10*3/uL 0.36-1.02 H = 742-7) EOS x10^3 (test code = 0.04 10*3/uL 0.06-0.53 L 711-2) BASO x10^3 (test code 0.04 10*3/uL 0.01-0.09 = 704-7) Lab Interpretation Abnormal (test code = 81326-8) [id number] 00:50:12 Test Item Value Reference Interpretation Comments Range TROPONIN I (test 0.007 ng/mL See_Comment [Automated code = 7593786993) message] The system which generated this result transmitted reference range : <=0.034. The reference range was not used to interpret this result as normal/abnormal . NEYMAR (test code = Reference (Normal) NEYMAR) Range (defined by the 99th percentile reference limit): <= 0.034 ng/mL Note: Cardiac troponin begins to rise 3-4 hours after the onset of ischemia. Repeat in 4-6 hours if the sample was drawn within 3-4 hours of the onset of the symptom and found normal. Diagnosis of myocardial injury is made with acute changes in cTn concentrations with at least one serial sample above the 99th percentile upper reference limit (URL), taken together with the patient's clinical presentation. Biotin has been reported to cause a negative bias, interpret results relative to patient's use of biotin. Lab Interpretation Normal (test code = 99004-9) [facility] [id number] 00:50:12 Test Item Value Reference Range Interpretation Comments NT-proBNP (test code 1120 pg/mL See_Comment H [Autom ated = 2641442722) message] The system which generated this result transmitted reference range : <=125. The reference range was not used to interpret this result as normal/abnormal . NEYMAR (test code = NEYMAR) Biotin has been reported to cause a negative bias, interpret results relative to patient's use of biotin. Lab Interpretation Abnormal (test code = 02476-6) [facility] Metabolic Panel (NA, K, CL, CO2, GLUCOSE, BUN, CREATININE, CA)2022-04-29 00:39:11 Test Item Value Reference Range Interpretation Comments NA (test code = 150 mmol/L 135-145 H 4988213065) K (test code = 4.0 mmol/L 3.5-5.0 4833260152) CL (test code = 117 mmol/L 98-108 H 2279113345) CO2 TOTAL (test code = 20 mmol/L 23-31 L 3056819435) AGAP (test code = 2-16 2398061352) BUN (test code = 23 mg/dL 7-23 5774127555) GLUCOSE (test code = 105 mg/dL 70-110 7853994938) CREATININE (test code = 0.89 mg/dL 0.60-1.25 7624447482) CALCIUM (test code = 8.9 mg/dL 8.6-10.6 0639352715) eGFR (test code = mL/min/1.73m2 8138346882) NEYMAR (test code = NEYMAR) Association of Glomerular Filtration Rate (GFR) and Staging of Kidney Disease* + --+ --+ ------+| GFR (mL/min/1.73 m2) ?| With Kidney Damage ?| ?Without Kidney Damage+ --------+ --------+ +| ?>90 ?| ?Stage one ?| ? Normal ?+ ---+ ---+ -------+| ?60-89 ?| ?Stage two ?| ? Decreased GFR ? + --+ --+ ------+| ?30-59 ?| ?Stage three ?| ? Stage three ? + --+ --+ ------+| ?15-29 ?| ?Stage four ? | ? Stage four ?+ ---+ ---+ -------+| ?<15 (or dialysis) ? ?| ?Stage five ? | ? Stage five ?+ ---+ ---+ -------+ *Each stage assumes the associated GFR level has been in effect for at least three months. ?Stages 1 to 5, with or without kidney disease, indicate chronic kidney disease. Notes: Determination of stages one and two (with eGFR >59mL/min/1.73 m2) requires estimation of kidney damage for at least three months as defined by structural or functional abnormalities of the kidney, manifested by either:Pathological abnormalities or Markers of kidney damage (including abnormalities in the composition of the blood or urine or abnormalities in imaging tests). Lab Interpretation Abnormal (test code = 29222-0) [facility] (ALB, T.PRO, BILI T, BU/BC, ALT, AST, ALK PHOS)2022-04-29 00:39:11 Test Item Value Reference Range Interpretation Comments TOTAL BILI (test code = 7037740500) 1.3 mg/dL 0.1-1.1 H BILI UNCON (test code = 0947460291) 1.0 mg/dL 0.1-1.1 BILI CONJ (test code = 1672302358) 0.0 mg/dL 0.0-0.3 T PROTEIN (test code = 9979162548) 7.6 g/dL 6.3-8.2 ALBUMIN (test code = 7107120249) 4.2 g/dL 3.5-5.0 ALK PHOS (test code = 7345371148) 108 U/L 34-122 ALTv (test code = 1742-6) 25 U/L 5-50 AST(SGOT) (test code = 7971628365) 27 U/L 13-40 Lab Interpretation (test code = Abnormal 29022-9) [facility] [id number] 00:39:11 Test Item Value Reference Range Interpretation Comments LIPASE (test code = 6407476454) 67 U/L 0-220 Lab Interpretation (test code = Normal 59292-0) [facility] with [id number] 00:26:53 Test Item Value Reference Range Interpretation Comments WBC (test code = See_Comment [Automated 0390-2) message] The sy stem which generated this result transmitted reference range : 4.20 - 10.70 10*3/?L. The reference range was not used to interpret this result as normal/abnormal . RBC (test code = See_Comment [Automated 069-8) message] The sy stem which generated this result transmitted reference range : 4.26 - 5.52 10*6/?L. The reference range was not used to interpret this result as normal/abnormal . HGB (test code = 16.4 g/dL 12.2-16.4 718-7) HCT (test code = 47.6 % 38.4-49.3 4544-3) MCV (test code = 94.4 fL 81.7-95.6 787-2) MCH (test code = 32.5 pg 26.1-32.7 785-6) MCHC (test code = 34.5 g/dL 31.2-35.0 786-4) RDW-SD (test code = 50.3 fL 38.5-51.6 11900-0) RDW-CV (test code = 14.6 % 12.1-15.4 788-0) PLT (test code = See_Comment [Automated 777-3) message] The sy stem which generated this result transmitted reference range : 150 - 328 10*3/ ?L. The reference r rohan was not used to interpret this result as normal/abnormal . MPV (test code = 11.0 fL 9.8-13.0 96071-7) NRBC/100 WBC (test See_Comment [Automat ed code = 2566253767) message] The system which generated this result transmitted reference range : 0.0 - 10.0 /100 WBCs. The refer ence range was not u sed to interpret th is result as normal/abnormal . NRBC x10^3 (test code <0.01 See_Comment [Auto mated = 0257138380) message] The s ystem which generated this result transmitted reference range : 10*3/?L. The reference range was not used to interpret this result as normal/abnormal . GRAN MAT (NEUT) % 65.4 % (test code = 770-8) IMM GRAN % (test code 0.20 % = 8552414444) LYMPH % (test code = 16.9 % 736-9) MONO % (test code = 14.2 % 5905-5) EOS % (test code = 2.6 % 713-8) BASO % (test code = 0.7 % 706-2) GRAN MAT x10^3(ANC) 5.37 10*3/uL 1.99-6.95 (test code = 2782134327) IMM GRAN x10^3 (test <0.03 0.00-0.06 code = 5241926771) LYMPH x10^3 (test code 1.39 10*3/uL 1.09-3.23 = 731-0) MONO x10^3 (test code 1.17 10*3/uL 0.36-1.02 H = 742-7) EOS x10^3 (test code = 0.21 10*3/uL 0.06-0.53 711-2) BASO x10^3 (test code 0.06 10*3/uL 0.01-0.09 = 704-7) Lab Interpretation Abnormal (test code = 50601-7) [facility]"
[2023-04-16 11:58] LABS: Absolute Lymphocytes (CBC) 1.7 K/uL (0.7-4.9); Lymphocytes % 23.7 % (15.3-44.8); MCV 96.9 fL (80-100); MPV 9.9 fL (7.6-11.3); RBC Red Blood Cell Count 4.23 M/uL (4.33-5.43)
--- NOTE | 2023-04-16 11:59 | RAD REPORT ---
EXAM DESCRIPTION: CT - Head Brain Wo Cont - 04/16/2023 11:48 am CLINICAL HISTORY: ams COMPARISON: No comparisons TECHNIQUE: Noncontrast head CT images were obtained without IV contrast. Multiplanar reformats were generated and reviewed. All CT scans are performed using dose optimization technique as appropriate and may include automated exposure control or mA/KV adjustment according to patient size. FINDINGS: No intracranial hemorrhage, mass, or edema. Midline structures are unremarkable. Moderate diffuse parenchymal volume loss, with frontal and temporal lobe predominance. Cavum septum p ellucidum et vergae. Ashley-white matter differentiation is preserved, without evidence of acute infarct. No abnormal extra- axial fluid collections. Patchy periventricular and deep white matter hypodensities, nonspecific, may suggest chronic small ve ssel ischemic changes. Mastoid air cells and visualized portions of the paranasal sinuses are clear. No acute bony findings. IMPRESSION: No evidence of an acute intracranial process. Parenchymal volume loss, with frontal and temporal lobe predominance, as well as patchy periventricul ar and deep white matter hypodensities. Findings are nonspecific, and suggest chronic small vessel is chemic changes.
[2023-04-16 12:17] LABS: Albumin 2.9 g/dL (3.4-5.0); Bilirubin Direct 0.2 mg/dL (0-0.2); Bilirubin Indirect, Calculated 0.3 mg/dL (0.2-0.8); Bilirubin Total 0.5 mg/dL (0.2-1.0); Magnesium 2.1 mg/dL (1.6-2.4); Protein, Total 6.4 g/dL (6.4-8.2)
[2023-04-16 12:21] LABS: Troponin High Sensitivity 62.8 pg/mL (<58.9)
--- NOTE | 2023-04-16 12:28 | RAD REPORT ---
EXAM DESCRIPTION: Ying Single View04/16/2023 12:19 pm CLINICAL HISTORY: syncope COMPARISON: No comparisons TECHNIQUE: Portable AP view of the chest. FINDINGS: The lungs are clear. No pneumothorax or effusion. The cardiomediastinal contours are unrem arkable. IMPRESSION: No acute cardiopulmonary process.
[2023-04-16 15:17] LABS: Specific Gravity 1.023 (1.005-1.030); Urine Bacteria <20 /HPF (<20); Urine Bilirubin NEGATIVE (Negative); Urine Blood Negative (Negative); Urine Clarity Extremely Turbid (Clear); Urine Color Yellow (Yellow); Urine Crystals Unidentified Few /HPF (None Seen); Urine Glucose NEGATIVE (Negative); Urine Granular Casts 0-5 /LPF (None Seen); Urine Mucus 4+ /HPF (None Seen); Urine Protein 1+ (Negative); Urine Urobilinogen 1+ (Normal)
--- NOTE | 2023-04-16 15:36 | ER ---
Nurse's Notes [facility] Name: Donald [facility] Age: 72 yrs Sex: Male : 1950 Arrival Date: 04/16/2023 Time: 11:24 Bed 5 Private MD: Diagnosis: Syncope;Urinary tract infection Presentation: 04/16 11:28 Chief complaint: EMS states: Toned out for unresponsive, pt was minimally responsive on jl7 EMS arrival, hx of TIA. Coronavirus screen: At this time, the client does not indicate any symptoms associated with coronavirus-19. Ebola Screen: No symptoms or risks identified at this time. Initial Sepsis Screen: Does the patient meet any 2 criteria? No. Patient's initial sepsis screen is negative. Does the patient have a suspected source of infection? No. Patient's initial sepsis screen is negative. Risk Assessment: Do you want to hurt yourself or someone else? Patient reports no desire to harm self or others. Onset of symptoms is unknown. Care prior to arrival: None. Transition of care: [facility]. 11:28 Method Of Arrival: EMS: [facility] 11:28 Acuity: SALOMON 3 jl7 Triage Assessment: 11:55 General: Appears in no apparent distress. comfortable, Behavior is calm, cooperative, ko1 appropriate for age. Pain: Denies pain. Neuro: No deficits noted. Historical: - Allergies: 11:31 No Known Allergies; jl7 - PMHx: 11:31 TIA; Atrial fibrillation; jl7 - Immunization history:: Adult Immunizations unknown. - Social history:: Smoking status: unknown. - Family history:: not pertinent. Screenin:55 [facility] ED Fall Risk Assessment (Adult) History of falling in the last 3 months, ko1 including since admission No falls in past 3 months (0 pts) Confusion or Disorientation No (0 pts) Intoxicated or Sedated No (0 pts) Impaired Gait Yes (1 pt) Mobility Assist Device Used No (0 pt) Altered Elimination No (0 pt) Score/Fall Risk Level 0 - 2 = Low Risk Oriented to surroundings, Maintained a safe environment, Educated pt \T\ family on fall prevention, incl call for assistance when getting out of bed, Assessed \T\ reinforced patient's understanding of fall precautions, Provided non-skid footwear, Hourly rounding (assess needs \T\ fall precautionary measures) done, Used ambulatory aids as needed (educated on \T\ assisted with), Used gait belt as appropriate. Abuse screen: Denies threats or abuse. Denies injuries from another. Nutritional screening: No deficits noted. Tuberculosis screening: No symptoms or risk factors identified. Assessment: 11:55 Neuro: No deficits noted. Cardiovascular: Rhythm is atrial fibrillation. Respiratory: ko1 No deficits noted. GI: No deficits noted. : No deficits noted. EENT: No deficits noted. Derm: No signs and/or symptoms reported regarding the dermatologic system. Musculoskeletal: No deficits noted. 14:43 Reassessment: Patient appears in no apparent distress at this time. No changes from ko1 previously documented assessment. Patient and/or family updated on plan of care and expected duration. Pain level reassessed. Patient is alert, oriented x 3, equal unlabored respirations, skin warm/dry/pink. 19:34 Reassessment: Patient removed IV by self. Patient was instructed to not mess with the os monitor wiring and IV. Bleeding on the IV site was stopped with gauze and coban. Vital Signs: 11:54 BP 121 / 82; Pulse 62; Resp 18; Temp 98.5; Pulse Ox 98% ; ko1 12:29 BP 134 / 78; Pulse 72; Resp 18; Pulse Ox 99% ; ko1 14:43 BP 134 / 78; Pulse 64; Resp 18; Pulse Ox 98% ; ko1 16:30 BP 128 / 77; Pulse 71; Resp 18; Pulse Ox 99% on R/A; os 20:30 BP 131 / 80; Pulse 80; Resp 18; Pulse Ox 98% on R/A; os ED Course: 11:27 Patient arrived in ED. jl7 11:30 Yassine Hawley MD is Attending Physician. rt 11:31 Triage completed. jl7 11:31 Arm band placed on right wrist. jl7 11:33 Maintain EMS IV. Dressing intact. Site clean \T\ dry. Gauge \T\ site: 18g left hand. IV is ko 1 patent, is intact, with fluids infusing freely, without good blood return. 11:49 CT Head Brain wo Cont In Process Unspecified. EDMS 11:54 Monica Denis, BRYCE is Primary Nurse. ko1 11:55 Patient has correct armband on for positive identification. Bed in low position. Call ko1 light in reach. Side rails up X2. Client placed on continuous cardiac and pulse oximetry monitoring. NIBP monitoring applied. vehicle monitor technician on. Door closed. Noise minimized. Lights dimmed. Warm blanket given. 11:55 No provider procedures requiring assistance completed. Inserted saline lock: 22 gauge ko1 in left antecubital area, using aseptic technique. Blood collected. Patient maintains SpO2 saturation greater than 95% on room air. 12:21 XRAY Chest (1 view) In Process Unspecified. EDMS 15:18 IV discontinued, intact, bleeding controlled, No redness/swelling at site. Pressure ko1 dressing applied. 15:36 Azeem Harden MD is Hospitalizing Provider. rt 16:36 Urine Culture Sent. ko1 18:53 Inserted saline lock: 20 gauge in right antecubital area, using aseptic technique. ko1 Administered Medications: 18:53 Drug: Rocephin - Rocephin (cefTRIAXone) IVPB 2 grams Route: IVPB; Infused Over: 30 ko1 mins; Site: right antecubital; 22:07 Follow up: Response: No adverse reaction os Medication: 11:55 VIS not applicable for this client. ko1 Outcome: 15:36 Decision to Hospitalize by Provider. rt 22:06 Admitted to Med/surg accompanied by nurse. os 22:07 Instructed on the need for admit, Demonstrated understanding of admit os 22:18 Patient left the ED. os Signatures: Dispatcher [employer] EDMS Cheyanne Odonnell RN RN jl7 Monica Denis RN RN ko1 Yassine Hawley MD MD rt Iliana Coleman RN RN os
--- NOTE | 2023-04-16 15:36 | EDPHYS ---
Physician Documentation [facility] Name: Donald Herron Age: 72 yrs Sex: Male : 1950 Arrival Date: 04/16/2023 Time: 11:24 Bed 5 Private MD: ED Physician Yassine Hawley HPI: 04/16 11:44 This 72 yrs old Male presents to ER via EMS with complaints of Altered Mental Status. rt 11:44 Patient presents to the ED from custodial with altered mental status. Patient was rt reportedly found outside of the custodial and was unresponsive to painful stimuli was noted to be diaphoretic at that time. Estimated downtime was about 20 to 30 minutes. EMS was called, patient subsequent had return to baseline mental status. Patient denies being unconscious, denies any physical complaints at this time. Symptoms are moderate severity, no other aggravating or alleviating factors.. Historical: - Allergies: 11:31 No Known Allergies; jl7 - PMHx: 11:31 TIA; Atrial fibrillation; jl7 - Immunization history:: Adult Immunizations unknown. - Social history:: Smoking status: unknown. - Family history:: not pertinent. ROS: 11:44 Constitutional: Negative for fever, chills, and weight loss, Cardiovascular: Negative rt for chest pain, palpitations, and edema, Respiratory: Negative for shortness of breath, cough, wheezing, and pleuritic chest pain, Abdomen/GI: Negative for abdominal pain, nausea, vomiting, diarrhea, and constipation, MS/Extremity: Negative for injury and deformity, Psych: Negative for depression, anxiety, suicide ideation, homicidal ideation, and hallucinations. 11:44 Skin: Positive for diaphoresis, Negative for laceration(s). 11:44 Neuro: Positive for altered mental status, loss of consciousness. Exam: 11:44 Constitutional: This is a well developed, well nourished patient who is awake, alert, rt and in no acute distress. Head/Face: Normocephalic, atraumatic. Chest/axilla: Normal chest wall appearance and motion. Nontender with no deformity. No lesions are appreciated. Cardiovascular: Regular rate and rhythm with a normal S1 and S2. No gallops, murmurs, or rubs. Normal PMI, no JVD. No pulse deficits. Respiratory: Lungs have equal breath sounds bilaterally, clear to auscultation and percussion. No rales, rhonchi or wheezes noted. No increased work of breathing, no retractions or nasal flaring. Abdomen/GI: Soft, non-tender, with normal bowel sounds. No distension or tympany. No guarding or rebound. No evidence of tenderness throughout. Skin: Warm, dry with normal turgor. Normal color with no rashes, no lesions, and no evidence of cellulitis. MS/ Extremity: Pulses equal, no cyanosis. Neurovascular intact. Full, normal range of motion. Neuro: Awake and alert, GCS 15, oriented to person, place, time, and situation. Cranial nerves II-XII grossly intact. Motor strength 5/5 in all extremities. Sensory grossly intact. Cerebellar exam normal. Normal gait. Psych: Awake, alert, with orientation to person, place and time. Behavior, mood, and affect are within normal limits. 11:44 ECG was reviewed by the Attending Physician. Vital Signs: 11:54 BP 121 / 82; Pulse 62; Resp 18; Temp 98.5; Pulse Ox 98% ; ko1 12:29 BP 134 / 78; Pulse 72; Resp 18; Pulse Ox 99% ; ko1 14:43 BP 134 / 78; Pulse 64; Resp 18; Pulse Ox 98% ; ko1 16:30 BP 128 / 77; Pulse 71; Resp 18; Pulse Ox 99% on R/A; os 20:30 BP 131 / 80; Pulse 80; Resp 18; Pulse Ox 98% on R/A; os MDM: 11:30 Patient medically screened. rt 17:49 Differential Diagnosis: CVA, dysrhythmia, syncope, UTI, sepsis. Data reviewed: vital rt signs, nurses notes, lab test result(s), EKG, radiologic studies. Consideration of Admission/Observation Patient was admitted/placed on observation. Management of patient was discussed with the following: Hospitalist: Agrees to admit. Independent interpretation of the following test(s) in the Emergency Department CT Scan: My interpretation is No hemorrhage seen on my interpretation of the CT scan images. Care significantly affected by the following chronic conditions: Atrial fibrillation. Counseling: I had a detailed discussion with the patient and/or guardian regarding: the historical points, exam findings, and any diagnostic results supporting the discharge/admit diagnosis, lab results, radiology results, the need for further work-up and treatment in the hospital. 06/23 11:31 Order name: Basic Metabolic Panel; Complete Time: 12:29 rt 04/16 11:31 Order name: CBC with Diff; Complete Time: 12:29 rt 04/16 11:31 Order name: LFT's; Complete Time: 12:29 rt 04/16 11:31 Order name: Magnesium; Complete Time: 12:29 rt 04/16 11:31 Order name: Troponin HS; Complete Time: 12:29 rt 04/16 11:31 Order name: UAM; Complete Time: 15:19 rt 04/16 15:21 Order name: Urine Culture EDMS 04/16 18:29 Order name: CBC with Automated Diff EDMS 04/16 18:29 Order name: CBC with Automated Diff EDMS 04/16 18:29 Order name: Comprehensive Metabolic Panel EDMS 04/16 18:29 Order name: Comprehensive Metabolic Panel EDMS 04/16 18:29 Order name: Lipid Profile EDMS 04/16 18:29 Order name: Lipid Profile EDMS 04/16 18:29 Order name: Magnesium EDMS 04/16 18:29 Order name: Magnesium EDMS 04/16 18:29 Order name: T4 Free EDMS 04/16 18:29 Order name: T4 Free EDMS 04/16 18:29 Order name: Thyroid Stimulating Hormone EDMS 04/16 18:29 Order name: Thyroid Stimulating Hormone EDMS 04/16 18:29 Order name: Troponin High Sensitivity EDMS 04/16 18:29 Order name: Troponin High Sensitivity EDMS 04/16 11:31 Order name: XRAY Chest (1 view); Complete Time: 12:29 rt 04/16 11:31 Order name: CT Head Brain wo Cont; Complete Time: 12:29 rt 04/16 18:29 Order name: Carotid Artery Bilateral EDMS 04/16 18:29 Order name: Carotid Artery Bilateral EDMS 04/16 11:31 Order name: EKG; Complete Time: 11:32 rt 04/16 18:29 Order name: Heart Healthy EDMS 04/16 18:34 Order name: CONS Physician Consult EDMS 04/16 11:31 Order name: Cardiac monitoring; Complete Time: 11:50 rt 04/16 11:31 Order name: EKG - Nurse/Tech; Complete Time: 11:47 rt 04/16 11:31 Order name: IV Saline Lock; Complete Time: 11:48 rt 04/16 11:31 Order name: Labs collected and sent; Complete Time: :48 rt 04/16 11:31 Order name: O2 Per Protocol; Complete Time: 48 rt 04/16 11:31 Order name: O2 Sat Monitoring; Complete Time: :48 rt EC:44 Rate is 69 beats/min. Rhythm is irregularly irregular, A fib with No ectopy. QRS rt interval is normal. QT interval is normal. No Q waves. Interpreted by me. Administered Medications: 18:53 Drug: Rocephin - Rocephin (cefTRIAXone) IVPB 2 grams Route: IVPB; Infused Over: 30 ko1 mins; Site: right antecubital; 22:07 Follow up: Response: No adverse reaction os Disposition Summary: 04/16/23 15:36 Hospitalization Ordered Hospitalization Status: Observation rt Provider: Azeem Harden rt Condition: Stable rt Problem: new rt Symptoms: have improved rt Bed/Room Type: Standard rt Location: Telemetry/MedSurg (observation)(04/16/23 20:44) cg Room Assignment: 208(04/16/23 20:44) Diagnosis - Syncope rt - Urinary tract infection rt Forms: - Medication Reconciliation Form rt - SBAR form rt Signatures: Dispatcher [employer] Eden Ruvalcaba RN RN cg Cheyanne Odonnell RN RN jl7 Monica Denis RN RN ko1 Yassine Hawley MD MD rt Iliana Coleman RN RN os Corrections: (The following items were deleted from the chart) 18:02 15:36 Telemetry/MedSurg (observation) rt os 18:02 15:36 rt os 20:44 18:[address] [facility] ER HOLD os cg 20:44 18:02 ERHOLD- os cg
[2023-04-16] MEDS ORDERED: ACETAMINOPHEN 500 MG TAB PO PRN (18:23)
[2023-04-16] MEDS ORDERED: ONDANSETRON 4 MG/2 ML VIAL IV PRN (18:23)
[2023-04-16] MEDS ORDERED: MORPHINE 2 MG/ML SYR IV PRN (18:23)
[2023-04-16] MEDS: CEFTRIAXONE 1,000 MG in NA CHLORIDE 0.9% 50 ML IVPB SCH (18:30)
--- NOTE | 2023-04-16 18:33 | P.HP ---
Certification for Inpatient Patient admitted to: Observation With expected LOS: <2 Midnights Patient will require the following post-hospital care: Snf Practitioner: I am a practitioner with admitting privileges, knowledge of patient current condition, hospital course, and medical plan of care. Services: Services provided to patient in accordance with Admission requirements found in Title 42 Section 412.3 of the Code of Federal Regulations Patient History Date of Service: 04/16/23 Reason for admission: Syncope-30 minutes History of Present Illness: Patient is a 72-year-old gentleman who is a resident at a local alf who had gone outside for a cigarette break. When they went to check on him he had been unresponsive. He had the nursing staff thinks he was unresponsive for about 30 minutes. EMS was called out and patient remained unresponsive. When he was brought to the hospital he started waking up. There was no abnormal rhythms noted on the heart monitor. Patient denies any chest pain. Patient denies any shortness of breath. Patient is a poor historian. Patient will be monitored on telemetry and will get a carotid Doppler. Patient may have had an arrhythmia that precipitated this. We will monitor him on telemetry and we may need to get cardiology consultation. At this time, patient will be admitted to the hospital for further evaluation. We will talk with the alf to see if we get some more information regarding his recent stay at the facility. - Past Medical/Surgical History -: TIA -: Atrial fibrillation Past Surgical History: Unable to obtain - Family History Father Family History: Reviewed- Non-Contributory - Social History Smoking Status: Current every day smoker Alcohol use: No CD- Drugs: No Review of Systems is unable to be obtained Physical Examination - Vital Signs Temperature: 98 F Blood Pressure: 150/80 Pulse: 88 Respirations: 18 Pulse Ox (%): 96 - Physical Exam General: Alert, In no apparent distress, Oriented x3 HEENT: Atraumatic, PERRLA, Mucous membr. moist/pink, EOMI, Sclerae nonicteric Neck: Supple, 2+ carotid pulse no bruit, No LAD, Without JVD or thyroid abnormality Respiratory: Clear to auscultation bilaterally, Normal air movement Cardiovascular: Regular rate/rhythm, Normal S1 S2, Systolic murmur Gastrointestinal: Normal bowel sounds, Soft and benign, Non-distended, No tenderness Musculoskeletal: No clubbing, No swelling, No tenderness Integumentary: No rashes Neurological: Normal gait, Normal speech, Normal strength at 5/5 x4 extr, Normal tone, Sensation intact, Cranial nerves 3-12 intact, Normal affect Lymphatics: No axilla or inguinal lymphadenopathy - Studies Laboratory Data (last 24 hrs) 04/16/23 11:40: WBC 7.20, Hgb 13.2 L, Hct 41.0, Plt Count 142 L 04/16/23 11:40: Sodium 142, Potassium 4.0, BUN 18, Creatinine 0.78, Glucose 104, Magnesium 2.1, Total Bilirubin 0.5, AST 18, ALT 28, Alkaline Phosphatase 59 Assessment & Plan - Problems (Diagnosis) (1) Syncope and collapse Current Visit: Yes Status: Acute (2) History of atrial fibrillation Current Visit: Yes Status: Acute (3) History of hypertension Current Visit: Yes Status: Acute - Plan Plan: 1. Troponin mildly elevated. Will check serial troponins 2. Most likely arrhythmia, will monitor on telemetry 3. Cardiology consultation has been obtained 4. Hold off on anticoagulation at this time 5. Continue antiplatelet and statin therapy and monitor blood pressure 6. Please reconcile home medication for review 7. Carotid Doppler 8. May need echocardiogram 9. GI DVT prophylaxis Discharge Plan: Halfway Plan to discharge in: 24 Hours - Advance Directives Does patient have a Living Will: No Does patient have a Durable POA for Healthcare: No - Code Status/Comfort Care Code Status Assessed: Yes Code Status: Full Code Critical Care: No Time Spent Managing PTS Care (In Minutes): 45
[2023-04-16] MEDS ORDERED: CEFTRIAXONE 1000 MG/VIAL ONE (18:52)
[2023-04-16] MEDS ORDERED: ATORVASTATIN 20 MG TAB PO SCH (21:00)
[2023-04-16] MEDS: NA CHLORIDE 0.9% 1,000 ML IV SCH (22:43)
[2023-04-16] MEDS: LOSARTAN POTASSIUM 50 MG TABLET PO SCH (22:45)
[2023-04-16 23:09] VITALS: O2SAT 98
[2023-04-16 23:36] VITALS: BMI 25.0
[2023-04-17 03:29] LABS: Absolute Lymphocytes (CBC) 2.5 K/uL (0.7-4.9); Hematocrit 38.4 % (39.6-49.0); Lymphocytes % 32.7 % (15.3-44.8); MCV 95.6 fL (80-100); MPV 10.3 fL (7.6-11.3); RBC Red Blood Cell Count 4.01 M/uL (4.33-5.43)
[2023-04-17 03:54] LABS: Albumin 2.8 g/dL (3.4-5.0); Bilirubin Total 0.4 mg/dL (0.2-1.0); Magnesium 2.1 mg/dL (1.6-2.4); Potassium 3.6 mEq/L (3.5-5.1); Protein, Total 6.1 g/dL (6.4-8.2); Thyroid Stimulating Hormone 0.936 uIU/mL (0.358-3.740); Troponin High Sensitivity 63.7 pg/mL (<58.9)
[2023-04-17] MEDS: CEFTRIAXONE 1,000 MG in NA CHLORIDE 0.9% 50 ML IVPB SCH (08:33)
[2023-04-17] MEDS: LOSARTAN POTASSIUM 50 MG TABLET PO SCH (08:35)
[2023-04-17] MEDS ORDERED: ASPIRIN EC 81 MG TAB PO SCH (09:00)
--- NOTE | 2023-04-17 09:16 | RAD REPORT ---
EXAM DESCRIPTION: USCarotid Artery Bilateral04/17/2023 8:27 am CLINICAL HISTORY: syncope COMPARISON: None FINDINGS: The velocity of the right internal carotid artery equals 98 cm/sec. The right ICA/CCA rati o normal limits The velocity of the left internal carotid artery equals 80 cm/sec. The left ICA/CCA ratio normal limi ts Mild plaque is present within the common and internal carotid arteries. Moderate plaque left external carotid artery which usually is not clinically The vertebral arteries demonstrate antegrade flow IMPRESSION: Mild plaque within the common and internal carotid arteries without evidence of a hemody namically significant stenosis NASCET criteria used. Mild 0-49% stenosis Moderate 50-69% stenosis Severe 70-99% stenosis
[2023-04-17] MEDS: NA CHLORIDE 0.9% 1,000 ML IV SCH (12:13)
[2023-04-17 18:22] VITALS: BP 146/81; TEMP 98.6
[2023-04-17] MEDS ORDERED: ATORVASTATIN 40 MG TAB PO SCH (21:00)
[2023-04-17] MEDS ORDERED: APIXABAN 5 MG TABLET PO SCH (21:00)
[2023-04-17] MEDS ORDERED: HOME MED 1 EA UNK (Divalproex Sodium [Depakote] 125 MG Tablet.Dr) PO SCH (21:00)
[2023-04-17] MEDS ORDERED: DIVALPROEX ER 250 MG TAB PO SCH (21:00)
[2023-04-17] MEDS ORDERED: RIVASTIGMINE TARTRATE 1.5 MG PO SCH (21:00)
[2023-04-18] MEDS ORDERED: AMLODIPINE 5 MG TAB PO SCH (09:00)
[2023-04-18] MEDS ORDERED: DRISDOL (VITAMIN D=ERGOCALCIFEROL) 50000 UNIT CAP PO SCH (09:00)
[2023-04-18] MEDS ORDERED: ASPIRIN EC 81 MG TAB PO SCH (09:00)
--- NOTE | 2023-04-18 14:26 | EKG ---
Test Date: 2023-04-16 Test Time: 11:36:24 Handkerchief Presser: ALONDRA MEASUREMENT RESULTS: Intervals: Rate: 69 MA: QRSD: 96 QT: 406 QTc: 435 [place]: P: MA: QRS: 113 T: 41 INTERPRETIVE STATEMENTS: Atrial fibrillation Left posterior fascicular block Abnormal ECG No previous ECG available for comparison Electronically Signed On 04-18-23 14:23:54 CDT by Wiley Cyr
== END 2023-04-17 18:24 ==
LOC: ER 11:24 → ERHOLD 18:18 → 2ND 20:56
PROVIDERS: ADMIT Hospitalist; ATTEND Hospitalist
DX: R55 Syncope and collapse (principal); I48.91 Unspecified atrial fibrillation; I10 Essential (primary) hypertension; F17.210 Nicotine dependence, cigarettes, uncomplicated; N39.0 Urinary tract infection, site not specified
CPT/HCPCS: 93005; 87088; 85025 ×2; 81001; 87086; 80048; 36415; 83735 ×2; 80061; 80076; 84443; 84484 ×2; 84439; 80053; 70450; 71045; 93880; 96374; 99285; J7030 ×2; J0696 ×2; G0378

== ENCOUNTER 2023-04-30 11:32 | Emergency (ER) | payer OTHER ==
--- OUTSIDE RECORDS SUMMARY | 2023-04-30 11:39 | XMS REPORT | Continuity of Care Document ---
:1950 Author Organization [facility] t Address [address] [facility] [address] [place] [address] Care Team Providers Name Role Phone PCP, PATIENT DOES NOT HAVE A Primary Care Physician UnavailNAA Martell K.HLenore Attending Clinician Unavailable _[facility]_Issa_J Attending Clinician Unavailable BABAK ESQUIVEL Attending Clinician Unavailable Jayna Rizvi RN Attending Clinician Ileana Szymanski Attending Clinician Naa Lamb MD K.H. Attending Clinician Doctor Unassigned, [place] Attending Clinician Unavailable BLAIR ERVIN Attending Clinician [...] Clinician Shirley VILLA, Zo Victoria Attending Clinician [phone] Daniel Kunz MD Attending Clinician Dick VILLA, Petar Baig Attending Clinician BERNARDO RODRÍGUEZ Attending Clinician Unavailable GC_[email or web address] Admitting Clinician Unavailable BLAIR ERVIN Admitting Clinician Unavailable DANIEL KUNZ Admitting Clinician Unavailable Daniel Kunz MD Admitting Clinician BERNARDO RODRÍGUEZ Admitting Clinician Unavailable Payers Payer Name Policy Type Policy Number Effective Date Expiration Date Bacilio harrell [place]: [id number] 2022 Open Home Pro 00:00:00 [facility] [id number] 2022 COMMUNITY [place]AN-[place] - 00:00:00 STAR+PLUS (MEDICAID REPLACEMENT - HMO) MEDICARE PART A \\T\\ [id number] 2022 B 00:00:00 [facility] STAR PLUS [id number] 2022 00:00:00 MEDICAID - 000 [id number] - [...] 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 00:00: disorder Disorder 00 Hypercoagu Hypercoagu Problem Active 2021-10 P rivia lability lability 11-20 Medica l state State 00:00: 00 Atrial Atrial Problem Active 2021-10 [facility] fibrillati Fibrillati 11-20 Me dical on on 00:00: 00 Peripheral Peripheral Problem Active 2021-10 P rivia vascular Vascular 11-20 Medica l disease Disease 00:00: 00 Atrial Atrial Disease Active Univers fibrillati fibrillati 707 it y of on on 00:00: [place] 00 Medical Branch DEBORAH (acute DEBORAH (acute Disease Active U nivers kidney kidney 7-06 ity of injury) injury) 00:00: [place] [facility] CVA CVA Disease Active Univers (cerebral (cerebral 6-24 [place]y of infarction [place] 00 Medical Branch Cerebral Cerebral Disease Active Unive rs infarction infarction 5-30 it y of 00:00: [place] [facility] Slurred Slurred Disease Active Univers speech speech 5-29 ity of 00:00: [place] 00 Medical Branch Primary Primary Problem Active [facility] [...] Active Univers ALLERGIE Class ity of S [facility] Social History Social Habit Start Date Stop Date Quantity Comments Source History SDOH University o f Alcohol Std Drinks [place] [facility] History SDCA University o f Alcohol Comment [place] [facility] ical [facility] History SDOH University o f Physical Activity [facility] Branch History of tobacco Passive smoker Un iversity of use [facility] Exposure to 2023-01-08 2023-01-18 Not sure University of SARS-CoV-2 (event) 00:00:00 10:33:00 [facility] Branch Alcohol intake 2023-01-18 2023-01-18 1.14 /d University of 00:00:00 00:00:00 [facility] Branch Cigarettes smoked 2022-05-19 2022-05-19 Univers ity of current (pack per 00:00:00 00:00:00 [facility] day) - Reported Branch Cigarette 2022-05-19 2022-05-19 University of pack-years 00:00:00 00:00:00 [facility] Tobacco use and 2022-05-19 2022-05-19 Smokeless Universit y of exposure 00:00:00 00:00:00 tobacco non-user [facility] dical Branch History SDCA 2022-04-30 2022-04-30 5 University o f Alcohol Frequency 00:00:00 00:00:00 [facility] edical Branch History SDOH 2022-04-30 2022-04-30 5 University o f Alcohol Binge 00:00:00 00:00:00 [place] Medic al Branch History SDOH Social 2022-04-30 2022-04-30 5 Unive rsity of Connections Phone 00:00:00 00:00:00 [facility] edical Branch History SDCA Social 2022-04-30 2022-04-30 5 Unive rsity of Connections Get 00:00:00 00:00:00 [place] Med ical Together Branch History SDOH Social 2022-04-30 2022-04-30 1 Unive rsity of Connections Latter-Day 00:00:00 00:00:00 [place] [facility] History SDOH Social 2022-04-30 2022-04-30 1 Unive rsity of Connections 00:00:00 00:00:00 [place] Medical Membership Branch History SDOH Social 2022-04-30 2022-04-30 1 Unive rsity of Connections 00:00:00 00:00:00 [place] Medical Meetings Branch History SDOH Social 2022-04-30 2022-04-30 6 Unive rsity of Connections Living 00:00:00 00:00:00 [place] [facility] History SDOH 2022-04-30 2022-04-30 0 University o f Physical Activity 00:00:00 00:00:00 [place] M edical DPW Branch History SDOH Stress 2022-04-30 2022-04-30 3 Unive rsity of 00:00:00 00:00:00 [place] [facility] History SDOH 2022-04-30 2022-04-30 1 University o f Financial 00:00:00 00:00:00 [place] [facility] History SDOH Food 2022-04-30 2022-04-30 3 Univers ity of Worry 00:00:00 00:00:00 [place] [facility] History SDOH Food 2022-04-30 2022-04-30 3 Univers ity of Scarcity 00:00:00 00:00:00 [place] [facility] History SDOH 2022-04-30 2022-04-30 1 University o f Transport Med 00:00:00 00:00:00 [place] Medic al Branch History SDOH 2022-04-30 2022-04-30 1 University o f Transport Non-Med 00:00:00 [facility] Ass[facility] At [birth year] Universit y of 00:00:00 00:00:00 [facility] Smoking Status Start Date Stop Date Source Heavy Tobacco Smoker Reyes cotto Smokes tobacco daily 2022-05-19 00:00:00 [facility] ity [facility] Ex-smoker 2022-04-30 00:00:00 2022-04-30 00:00:00 Universi ty [facility] Medications Ordered Filled Start Stop Current Ordering [...] route. route. day by oral route. Jarod Olivera No 1 BID Depakote P rivia 125 mg 125 mg 4-13 125 mg Medical tablet,dillan tablet,dillan 00:00: tablet,del yed release yed release 00 ayed Take 1 Take 1 release tablet tablet Take 1 twice a day twice a day tablet by oral by oral twice a route. route. day by oral route. rivastigmin 2022-0 Yes [id number] 3mg Take 1 Univers e tartrate 3-27 01 capsule by ity of 3 mg 00:00: mouth [place] capsule 00 every Medical morning Branch and evening. divalproex 2022-0 Yes [id number] 500mg Take 1 Univers (DEPAKOTE) 3-27 01 tablet by ity of 500 mg EC [place]: [place] 00 bedtime. Medical Branch rivastigmin 2022-0 Yes [id number] 3mg Take 1 Univers e tartrate 3-27 01 capsule by ity of 3 mg 00:00: mouth [place] capsule 00 every Medical morning Branch and evening. divalproex 2022-0 Yes [id number] 500mg Take 1 Univers (DEPAKOTE) 3-27 01 tablet by ity of 500 mg EC 00:00: [place] 00 bedtime. Medical Branch rivastigmin 2022-0 Yes [id number] 3mg Take 1 Univers e tartrate 3-27 01 capsule by ity of 3 mg 00:00: mouth [place] capsule 00 every Medical morning Branch and evening. divalproex 2022-0 Yes [id number] 500mg Take 1 Univers (DEPAKOTE) 3-27 01 [...] route. route. oral route. rivastigmin 2021-10 Yes [id number] 1.5mg Take 1 Univers e tartrate 2-02 capsule by ity of 1.5 mg 00:00: mouth [place] capsule 00 every Medical morning Branch and evening. rivastigmin 2021-10 Yes [id number] 1.5mg Take 1 Univers e tartrate 2-02 capsule by ity of 1.5 mg 00:00: mouth [place] capsule 00 every Medical morning Branch and evening. rivastigmin 2021-10 Yes [id number] 1.5mg Take 1 Univers e tartrate 2-02 capsule by ity of 1.5 mg 00:00: mouth [place] capsule 00 every Medical morning Branch and evening. rivastigmin 2021-10 Yes [id number] 1.5mg Take 1 Univers e tartrate 2-02 capsule by ity of 1.5 mg 00:00: mouth [place] capsule 00 every Medical morning Branch and evening. rivastigmin 2021-10- No [id number] 1.5mg Take 1 Univers e tartrate 2-02 - capsule by it y of 1.5 mg 00:00: 00:00 mouth [place] capsule 00 :00 every Medical morning Branch and evening. rivastigmin 2021-10- No [id number] 1.5mg Take 1 Univers e tartrate 2-11 27- capsule by it y of 1.5 mg 00:00: 00:00 mouth [place] capsule 00 :00 every Medical morning Branch and evening. rivastigmin 2021-10- No [id number] 1.5mg Take 1 Univers e tartrate 2-02 - capsule by it y of 1.5 mg 00:00: 00:00 mouth [place] capsule 00 :00 every Medical morning Branch and evening. carvediloL 2021-10 Yes 6.25mg Take 6.25 Univers 6.25 mg 1-17 mg by ity of tablet 12:49: mouth in [place] [address] the Medical morning Branch and 6.25 mg in the evening. Take with meals. carvediloL 2021-10 Yes 6.25mg Take 6.25 Univers 6.25 mg 1-17 mg by ity of tablet 12:49: mouth in [place] [address] the Medical morning Branch and 6.25 mg in the evening. Take with meals. carvediloL 2021-10 Yes 6.25mg Take 6.25 Univers 6.25 mg 1-17 mg by ity of tablet 12:49: mouth in [place] [address] the Medical morning Branch and 6.25 mg in the evening. Take with meals. carvediloL 2021- Yes 6.25mg Take 6.25 Univers 6.25 mg 1-17 mg by ity of tablet 12:49: mouth in [place] [address] the Medical morning Branch and 6.25 mg in the evening. Take with meals. carvediloL 2021-10 Yes 6.25mg Take 6.25 Univers 6.25 mg 1-17 mg by ity of tablet 12:49: mouth in [place] [address] the Medical morning Branch and 6.25 mg in the evening. Take with meals. carvediloL 2021-10 Yes 6.25mg Take 6.25 Univers 6.25 mg 1-17 mg by ity of tablet 12:49: mouth in [place] [address] the Medical morning Branch and 6.25 mg in the evening. Take with meals. carvediloL 2021-10 Yes 6.25mg Take 6.25 Univers 6.25 mg 1-17 mg by ity of tablet 12:49: mouth in [place] [address] the Medical morning [place] and 6.25 mg in the evening. Take with meals. carvediloL 2021-10 Yes 6.25mg Take 6.25 Univers 6.25 mg 1-17 mg by ity of tablet 12:49: mouth in [place] [address] the Medical morning Branch and 6.25 mg in the evening. Take with meals. carvediloL 2021-10 Yes 6.25mg Take 6.25 Univers 6.25 mg 1-17 mg by ity of tablet 12:49: mouth in [place] [address] the Medical morning Branch and 6.25 mg in the evening. Take with meals. carvediloL 2021-10 Yes 6.25mg Take 6.25 Univers 6.25 mg 1-17 mg by ity of tablet 12:49: mouth in [place] [address] the Medical morning Branch and 6.25 mg in the evening. Take with meals. carvediloL 2021- Yes 6.25mg Take 6.25 Univers 6.25 mg 1-17 mg by ity of tablet 12:49: mouth in [place] [address] the Medical morning Branch and 6.25 mg in the evening. Take with meals. carvediloL 2021-10 Yes 6.25mg Take 6.25 Univers 6.25 mg 1-17 mg by ity of tablet 12:49: mouth in [place] [address] the Medical morning Branch and 6.25 mg in the evening. Take with meals. carvediloL 2021-10 Yes 6.25mg Take 6.25 Univers 6.25 mg 0-28 mg by ity of tablet 09:12: mouth in [place] [address] the Medical morning Branch and 6.25 mg in the evening. Take with meals. atorvastati 2021-10 Yes 40mg Take 40 mg Univers n 40 mg 0-28 by mouth ity of tablet 09:12: at [place] [address] bedtime. Medical Branch carvediloL 2021-10 Yes 6.25mg Take 6.25 Univers 6.25 mg 0-28 mg by ity of tablet 09:12: mouth in [place] [address] the Medical morning Branch and 6.25 mg in the evening. Take with meals. atorvastati 2021-10 Yes 40mg Take 40 mg Univers n 40 mg 0-28 by mouth ity of tablet 09:12: at [place] [address] bedtime. Medical Branch carvediloL 2021-10 Yes 6.25mg Take 6.25 Univers 6.25 mg 0-28 mg by ity of tablet 09:12: mouth in [place] [address] the Medical morning Branch and 6.25 mg in the evening. Take with meals. atorvastati 2021-10 Yes 40mg Take 40 mg Univers n 40 mg 0-28 by mouth ity of tablet 09:12: at [place] [address] bedtime. Medical Branch carvediloL 2021-10 Yes 6.25mg Take 6.25 Univers 6.25 mg 0-28 mg by ity of tablet 09:12: mouth in [place] [address] the Medical morning Branch and 6.25 mg in the evening. Take with meals. atorvastati 2021-10 Yes 40mg Take 40 mg Univers n 40 mg 0-28 by mouth ity of tablet 09:12: at [place] [address] bedtime. Medical Branch carvediloL 2021-10 Yes 6.25mg Take 6.25 Univers 6.25 mg 0-28 mg by ity of tablet 09:12: mouth in [place] [address] the Medical morning Branch and 6.25 mg in the evening. Take with meals. atorvastati 2021-10 Yes 40mg Take 40 mg Univers n 40 mg 0-28 by mouth ity of tablet 09:12: at [place] [address] bedtime. Medical Branch carvediloL 2021-10 Yes 6.25mg Take 6.25 Univers 6.25 mg 0-28 mg by ity of tablet 09:12: mouth in [place] [address] the Medical morning Branch and 6.25 mg in the evening. Take with meals. atorvastati 2021- Yes 40mg Take 40 mg Univers n 40 mg 0-28 by mouth ity of tablet 09:12: at [place] [address] bedtime. Medical Branch atorvastati 2021- Yes 40mg Take 40 mg Univers n 40 mg 0-28 by mouth ity of tablet 09:12: at [place] [address] bedtime. Medical Branch atorvastati 2021- Yes 40mg Take 40 mg Univers n 40 mg 0-28 by mouth ity of tablet 09:12: at [place] [address] bedtime. Medical Branch atorvastati 2021- Yes 40mg Take 40 mg Univers n 40 mg 0-28 by mouth ity of tablet 09:12: at [place] [address] bedtime. Medical Branch atorvastati 2021- Yes 40mg Take 40 mg Univers n 40 mg 0-28 by mouth ity of tablet 09:12: at [place] [address] bedtime. Medical Branch atorvastati 2021- Yes 40mg Take 40 mg Univers n 40 mg 0-28 by mouth ity of tablet 09:12: at [place] [address] bedtime. Medical Branch atorvastati 2021- Yes 40mg Take 40 mg Univers n 40 mg 0-28 by mouth ity of tablet 09:12: at [place] [address] bedtime. Medical Branch atorvastati 2021- Yes 40mg Take 40 mg Univers n 40 mg 0-28 by mouth ity of tablet 09:12: at [place] [address] bedtime. Medical Branch atorvastati 2021- Yes 40mg Take 40 mg Univers n 40 mg 0-28 by mouth ity of tablet 09:12: at [place] [address] bedtime. Medical Branch atorvastati 2021- Yes 40mg Take 40 mg Univers n 40 mg 0-28 by mouth ity of tablet 09:12: at [place] [address] bedtime. Medical Branch atorvastati 2021- Yes 40mg Take 40 mg Univers n 40 mg 0-28 by mouth ity of tablet 09:12: at [place] [address] bedtime. Medical Branch atorvastati 2021- Yes 40mg Take 40 mg Univers n 40 mg 0-28 by mouth ity of tablet 09:12: at [place] [address] bedtime. Medical Branch atorvastati 2021-10 Yes 40mg Take 40 mg Univers n 40 mg 0-28 by mouth ity of tablet 09:12: at [place] [address] bedtime. Medical Branch carvediloL Yes 6.25mg Take 6.25 Univers (COREG) 7-26 mg by ity of 6.25 mg 12:55: mouth in [place] tablet 25 the Medical morning Branch and 6.25 mg in the evening. Take with meals. atorvastati 0 Yes 40mg Take 40 mg Univers n 40 mg 7-26 by mouth ity of tablet 12:55: at [place] [address] bedtime. Medical Branch carvediloL Yes 6.25mg Take 6.25 Univers (COREG) 7-26 mg by ity of 6.25 mg 12:55: mouth in [place] tablet 25 the Medical morning Branch and 6.25 mg in the evening. Take with meals. atorvastati Yes 40mg Take 40 mg Univers n 40 mg 7-26 by mouth ity of tablet 12:55: at [place] [address] bedtime. Medical Branch carvediloL Yes 6.25mg Take 6.25 Univers (COREG) 7-26 mg by ity of 6.25 mg 12:55: mouth in [place] tablet 25 the Medical morning Branch and 6.25 mg in the evening. Take with meals. atorvastati Yes 40mg Take 40 mg Univers n 40 mg 7-26 by mouth ity of tablet 12:55: at [place] [address] bedtime. Medical Branch carvediloL Yes 6.25mg Take 6.25 Univers (COREG) 7-26 mg by ity of 6.25 mg 12:55: mouth in [place] tablet 25 the Medical morning Branch and 6.25 mg in the evening. Take with meals. atorvastati 0 Yes 40mg Take 40 mg Univers n 40 mg 7-26 by mouth ity of tablet 12:55: at [place] [address] bedtime. Medical Branch carvediloL Yes 6.25mg Take 6.25 Univers (COREG) 7-26 mg by ity of 6.25 mg 12:55: mouth in [place] tablet 25 the Medical morning Branch and 6.25 mg in the evening. Take with meals. atorvastati 0 Yes 40mg Take 40 mg Univers n 40 mg 7-26 by mouth ity of tablet 12:55: at [place] [address] bedtime. Medical Branch carvediloL 0 Yes 6.25mg Take 6.25 Univers (COREG) 7-26 mg by ity of 6.25 mg 12:55: mouth in [place] tablet 25 the Medical morning Branch and 6.25 mg in the evening. Take with meals. atorvastati 2021-0 Yes 40mg Take 40 mg Univers n 40 mg 7-26 by mouth ity of tablet 12:55: at [place] [address] bedtime. Medical Branch carvediloL 0 Yes 6.25mg Take 6.25 Univers (COREG) 7-26 mg by ity of 6.25 mg 12:55: mouth in [place] tablet 25 the Medical morning Branch and 6.25 mg in the evening. Take with meals. atorvastati 0 Yes 40mg Take 40 mg Univers n 40 mg 7-26 by mouth ity of tablet 12:55: at [place] [address] bedtime. Medical Branch carvediloL 0 Yes 6.25mg Take 6.25 Univers (COREG) 7-26 mg by ity of 6.25 mg 12:55: mouth in [place] tablet 25 the Medical morning Branch and 6.25 mg in the evening. Take with meals. atorvastati 0 Yes 40mg Take 40 mg Univers n 40 mg 7-26 by mouth ity of tablet 12:55: at [place] [address] bedtime. Medical Branch carvediloL 0 Yes 6.25mg Take 6.25 Univers (COREG) 7-26 mg by ity of 6.25 mg 12:55: mouth in [place] tablet 25 the Medical morning Branch and 6.25 mg in the evening. Take with meals. atorvastati 0 Yes 40mg Take 40 mg Univers n 40 mg 7-26 by mouth ity of tablet 12:55: at [place] [address] bedtime. Medical Branch carvediloL 0 Yes 6.25mg Take 6.25 Univers (COREG) 7-26 mg by ity of 6.25 mg 12:55: mouth in [place] tablet 25 the Medical morning Branch and 6.25 mg in the evening. Take with meals. atorvastati 2021-0 Yes 40mg Take 40 mg Univers n 40 mg 7-26 by mouth ity of tablet 12:55: at [place] [address] bedtime. Medical Branch carvediloL Yes 6.25mg Take 6.25 Univers (COREG) 7-26 mg by ity of 6.25 mg 12:55: mouth in [place] tablet 25 the Medical morning Branch and 6.25 mg in the evening. Take with meals. atorvastati Yes 40mg Take 40 mg Univers n 40 mg 7-26 by mouth ity of tablet 12:55: at [place] [address] bedtime. Medical Branch carvediloL Yes 6.25mg Take 6.25 Univers (COREG) 7-26 mg by ity of 6.25 mg 12:55: mouth in [place] tablet 25 the Medical morning Branch and 6.25 mg in the evening. Take with meals. atorvastati Yes 40mg Take 40 mg Univers n 40 mg 7-26 by mouth ity of tablet 12:55: at [place] [address] bedtime. Medical Branch carvediloL Yes 6.25mg Take 6.25 Univers (COREG) 7-26 mg by ity of 6.25 mg 12:55: mouth in [place] tablet 25 the Medical morning Branch and 6.25 mg in the evening. Take with meals. atorvastati Yes 40mg Take 40 mg Univers n 40 mg 7-26 by mouth ity of tablet 12:55: at [place] [address] bedtime. Medical Branch NaCl 0.9% 2021- No 1000mL at 999 Uni vers (NS) bolus 05-02-09 mL/hr, ity of infusion 18:15: 19:04 1,000 mL, Jey as 1,000 mL 00 :00 IV Medical Infusion, Branch ONCE, 1 dose, On 05/02/22 at 1315, ARUNA No known No No known Unive rs medications 05-02 medication it y of 15:35: s [address] No known No No known Unive rs medications 05-02 medication it y of 15:35: s [address] ketorolac 2021- No 10mg 10 mg, [...] Routine heparin Yes 5000U 5,000 Univers (porcine) - Units, ity of injection 01:00: [place] 5,000 Units 00 us, Q12H, Med ical First dose Branch on [place] 04/30/22 at 2000, Until Discontinu ed, Routine atorvastati 2021- No [id number] 40mg Take 1 Univers n 40 mg 05-01 tablet by ity of tablet 00:00: 04:59 mouth at [place] 00 :00 bedtime Medical for 14 Branch days. carvediloL 2021- No [id number] 6.25mg Take 1 Univers 6.25 mg 05-01 tablet by ity of tablet 00:00: 04:59 mouth 2 [place] 00 :00 (two) Medical times [place] daily with meals for 14 days. atorvastati 2021- No [id number] 40mg Take 1 Univers n 40 mg 05-01- tablet by ity of tablet 00:00: 04:59 mouth at [place] 00 :00 bedtime Medical for 14 Branch days. carvediloL 2021- No [id number] 6.25mg Take 1 Univers 6.25 mg 05-01- tablet by ity of tablet 00:00: 04:59 mouth 2 [place] 00 :00 (two) Medical times [place] daily with meals for 14 days. atorvastati 2021- No [id number] 40mg Take 1 Univers n 40 mg 05-01 tablet by ity of tablet 00:00: 04:59 mouth at [place] 00 :00 bedtime Medical for 14 Branch days. carvediloL No [id number] 6.25mg Take 1 Univers 6.25 mg 05-01 tablet by ity of tablet 00:00: 04:59 mouth 2 [place] 00 :00 (two) Medical times Branch daily with meals for 14 days. atorvastati No [id number] 40mg Take 1 Univers n 40 mg 05-01 tablet by ity of tablet 00:00: 04:59 mouth at [place] 00 :00 bedtime Medical for 14 Branch days. carvediloL No [id number] 6.25mg Take 1 Univers 6.25 mg 05-01 tablet by ity of tablet 00:00: 04:59 mouth 2 [place] 00 :00 (two) Medical times Branch daily with meals for 14 days. atorvastati No [id number] 40mg Take 1 Univers n 40 mg 05-01 tablet by ity of tablet 00:00: 04:59 mouth at [place] 00 :00 bedtime Medical for 14 Branch days. carvediloL No [id number] 6.25mg Take 1 Univers 6.25 mg 05-01 tablet by ity of tablet 00:00: 04:59 mouth 2 [place] 00 :00 (two) Medical times Branch daily with meals for 14 days. atorvastati No [id number] 40mg Take 1 Univers n 40 mg 05-01 tablet by ity of tablet 00:00: 04:59 mouth at [place] 00 :00 bedtime Medical for 14 Branch days. carvediloL No [id number] 6.25mg Take 1 Univers 6.25 mg 05-01 tablet by ity of tablet 00:00: 04:59 mouth 2 [place] 00 :00 (two) Medical times Branch daily with meals for 14 days. naproxen No [id number] 250mg Take 1 Univers 250 mg 7-08 07-16 tablet by ity of tablet 00:00: 04:59 mouth 2 [place] 00 :00 (two) Medical times Branch daily as needed for Pain (scale 4-6) for up to 7 days. naproxen 2021- No [id number] 250mg Take 1 Univers 250 mg 05-01-16 tablet by ity of tablet 00:00: 04:59 mouth 2 [place] 00 :00 (two) Medical times Branch daily as needed for Pain (scale 4-6) for up to 7 days. naproxen 2021-0 2021- No [id number] 250mg Take 1 Univers 250 mg 05-01-16 tablet by ity of tablet 00:00: 04:59 mouth 2 [place] 00 :00 (two) Medical times Branch daily as needed for Pain (scale 4-6) for up to 7 days. naproxen 2021-2021- No [id number] 250mg Take 1 Univers 250 mg 05-01-16 tablet by ity of tablet 00:00: 04:59 mouth 2 [place] 00 :00 (two) Medical times Branch daily as needed for Pain (scale 4-6) for up to 7 days. naproxen 2021-0 2021- No [id number] 250mg Take 1 Univers 250 mg 05-01-16 tablet by ity of tablet 00:00: 04:59 mouth 2 [place] 00 :00 (two) Medical times Branch daily as needed for Pain (scale 4-6) for up to 7 days. D5W IV 2021- No 1000mL at 75 Univers infusion 04-30 mL/hr, IV ity o f 1,000 mL 15:15: 14:13 Infusion, Jey as 00 :00 ONCE, 1 Medical dose, On Branch B[place] 04/30/22 at 1015, Routine NaCl 0.9% 2021- No 1000mL at 100 Uni vers (NS) bolus 04-30- mL/hr, ity of infusion 04:15: 12:00 1,000 mL, [place]ey as 1,000 mL 00 :13 IV Medical Piggyback, Branch CONTINUOUS , Starting on Wed04/29/22 at 2315, Until Wed04/30/22 at 0700, ARUNA carvediloL Yes 6.25mg 6.25 mg, U nivers (COREG) - Oral, BID ity of tablet 6.25 03:30: [place]ALS[place] mg 00 First dose Medical on Wed04/29/22 at 2230, Until Discontinu ed, Routine HEPARIN 2021- No 60U/kg 3,810 Univer s SODIUM 04-30 07-07 Units (60 ity of (PORCINE) 03:30: 05:27 Units/kg Jey as 1,000 00 :00 ?63.5 kg), Medical UNIT/ML IV Push, Branch BOLUS ACS ONCE, 1 ORDER SET dose, On Wed04/29/22 at 2230, ARUNA heparin 2021- No 12U/kg/ 12 Univer s 25,000 04-30- h Units/kg/h ity of Units/250 03:18: 14:43 [...] Rang e, Dosing and Testing: &nbs p;FOR [facility] ONLY &nbs p; - aPTT < [...] 04-30 Oral, ity of (TYLENOL) 01:46: Q6HPRN, [place] tablet 650 25 Starting Medic al mg on Wed04/29/22 at 2046, Until Discontinu ed, Routine, Pain (scale 1-3) NaCl 0.9% 2021- No 1000mL at 999 [...] s mg 00 :00 dose, On Medical Wed04/29/22 Branch at 1800, ARUNA diltiazem 2021- No 10mg 10 mg, Unive rs (CARDIZEM 04-29 Slow IV ity of IV) 22:45: 23:59 Push, [place] injection 00 :00 ONCE, 1 Medical 10 mg dose, On Branch Wed04/29/22 at 1800, STAT
[facility] : DALTON CHINO aspirin No 324mg 324 mg, Unive rs chewable 04-29 Oral, ity of tablet 324 22:30: 23:18 ONCE, 1 Jey as mg 00 :00 dose, On Wed04/29/22 Branch at 1730, STAT lisinopril- 2021- No 1{tbl} Take 1 Tab Univers hydrochloro 04-29 by mouth ity of thiazide 20:46: 00:00 daily. [place] (PRINZIDE,Z 48 :00 Medical ESTORETIC) Branch 20-25 mg per tablet amLODIPine 2021- No 5mg Take 5 mg U nivers (NORVASC) 5 04-29 by mouth ity of mg tablet 20:46: 00:00 daily. [place] 48 :00 Medical Branch atorvastati 2021- No 20mg Take 20 mg Univers n (LIPITOR) 04-29 by mouth ity of 20 mg 20:46: 00:00 at [place] tablet 48 :00 bedtime. Medical Branch clopidogrel 2021- No 75mg Take 75 mg Univers (PLAVIX) 75 04-29 by mouth ity of mg tablet 20:46: 00:00 daily. [place] 48 :00 Medical Branch acetaminoph 2021- No 1000mg Take 1,000 Univers en (TYLENOL 04-29 mg by ity of EXTRA 20:46: 00:00 mouth [place] STRENGTH) 48 :00 every 6 Medical 500 mg (six) Branch tablet hours as needed for Pain. cephALEXin 2021- No 500mg Take 500 U nivers (KEFLEX) 04-29 mg by ity of 500 mg 20:46: [...] ity of mg 23:45: 00:35 ONCE, 1 [place] 00 :00 dose, On Medical Wed04/28/22 Branch at 1845, STAT diltiazem 2021- No 20mg 20 mg, IV Un natalie (CARDIZEM 04-28 Push, ity of IV) 23:45: 23:37 ONCE, 1 [place] injection 00 :00 dose, On Medica l 20 mg Wed04/28/22 Branch at 1845, STAT
Fa culty member approving Restricted medication : BERNARDO RODRÍGUEZ lisinopril- Yes 1{tbl} Take 1 Tab Univers hydrochloro 9-04 by mouth ity of thiazide 15:32: daily. [place] (PRINZIDE,Z 57 Medical ESTORETIC) Branch 20-25 mg per tablet amLODIPine Yes 5mg Take 5 mg Un natalie (NORVASC) 5 9-04 by mouth ity of mg tablet 15:32: daily. [place] [address] Medical Branch atorvastati Yes 20mg Take 20 mg Univers n (LIPITOR) 9-04 by mouth ity of 20 mg 15:32: at [place] tablet 57 bedtime. Medical Branch clopidogrel Yes 75mg Take 75 mg Univers (PLAVIX) 75 9-04 by mouth ity of mg tablet 15:32: daily. [place] [address] Medical Branch acetaminoph Yes 1000mg Take 1,000 [...] Completed Unive rsity of PFIZER VACCINE 00:00:00 [facility] SARS-COV-2 COVID-19 2020-12-29 Completed Unive rsity of PFIZER VACCINE 00:00:00 [facility] SARS-COV-2 COVID-19 2020-12-29 Completed Unive rsity of PFIZER VACCINE 00:00:00 [facility] SARS-COV-2 COVID-19 2020-12-29 Completed Unive rsity of PFIZER VACCINE 00:00:00 [facility] SARS-COV-2 COVID-19 2020-12-29 Completed Unive rsity of PFIZER VACCINE 00:00:00 [facility] SARS-COV-2 COVID-19 2020-12-29 Completed Unive rsity of PFIZER VACCINE 00:00:00 [facility] SARS-COV-2 COVID-19 2020-12-29 Completed Unive rsity of PFIZER VACCINE 00:00:00 [facility] Branch SARS-COV-2 COVID-19 2020-12-29 Completed Unive rsity of PFIZER VACCINE 00:00:00 [place] [facility] Branch SARS-COV-2 COVID-19 2020-12-29 Completed Unive rsity of PFIZER VACCINE 00:00:00 [facility] Branch SARS-COV-2 COVID-19 2020-12-29 Completed Unive rsity of PFIZER VACCINE 00:00:00 [facility] Branch SARS-COV-2 COVID-19 2020-12-29 Completed Unive rsity of PFIZER VACCINE 00:00:00 [facility] Branch SARS-COV-2 COVID-19 2020-12-29 Completed Unive rsity of PFIZER VACCINE 00:00:00 [facility] Branch SARS-COV-2 COVID-19 2020-12-29 Completed Unive rsity of PFIZER VACCINE 00:00:00 [facility] Branch SARS-COV-2 COVID-19 2020-12-29 Completed Unive rsity of PFIZER VACCINE 00:00:00 [facility] Branch SARS-COV-2 COVID-19 2020-12-29 Completed Unive rsity of PFIZER VACCINE 00:00:00 [facility] Branch SARS-COV-2 COVID-19 2020-12-29 Completed Unive rsity of PFIZER VACCINE 00:00:00 [facility] Branch SARS-COV-2 COVID-19 2020-12-29 Completed Unive rsity of PFIZER VACCINE 00:00:00 [facility] Branch SARS-COV-2 COVID-19 2020-12-29 Completed Unive rsity of PFIZER VACCINE 00:00:00 [facility] Branch SARS-COV-2 COVID-19 2020-12-29 Completed Unive rsity of PFIZER VACCINE 00:00:00 [facility] Branch SARS-COV-2 COVID-19 2020-12-29 Completed Unive rsity of PFIZER VACCINE 00:00:00 [facility] Branch SARS-COV-2 COVID-19 2020-12-29 Completed Unive rsity of PFIZER VACCINE 00:00:00 [facility] Branch SARS-COV-2 COVID-19 2020-12-29 Completed Unive rsity of PFIZER VACCINE 00:00:00 [facility] Branch SARS-COV-2 COVID-19 2020-12-29 Completed Unive rsity of PFIZER VACCINE 00:00:00 [facility] SARS-COV-2 COVID-19 2020-12-29 Completed Unive rsity of PFIZER VACCINE 00:00:00 [facility] SARS-COV-2 COVID-19 2020-12-29 Completed Unive rsity of PFIZER VACCINE 00:00:00 [facility] SARS-COV-2 COVID-19 2020-12-29 Completed Unive rsity of PFIZER VACCINE 00:00:00 [facility] Branch SARS-COV-2 COVID-19 2020-12-29 Completed Unive rsity of PFIZER VACCINE 00:00:00 [facility] SARS-COV-2 COVID-19 2020-12-29 Completed Unive rsity of PFIZER VACCINE 00:00:00 [facility] SARS-COV-2 COVID-19 2020-12-29 Completed Unive rsity of PFIZER VACCINE 00:00:00 [facility] SARS-COV-2 COVID-19 2020-12-29 Completed Unive rsity of PFIZER VACCINE 00:00:00 [facility] SARS-COV-2 COVID-19 2020-12-29 Completed Unive rsity of PFIZER VACCINE 00:00:00 [facility] SARS-COV-2 COVID-19 2020-12-29 Completed Unive rsity of PFIZER VACCINE 00:00:00 [facility] SARS-COV-2 COVID-19 2020-12-29 Completed Unive rsity of PFIZER VACCINE 00:00:00 [facility] SARS-COV-2 COVID-19 2020-12-29 Completed Unive rsity of PFIZER VACCINE 00:00:00 [facility] SARS-COV-2 COVID-19 2020-12-29 Completed Unive rsity of PFIZER VACCINE 00:00:00 [facility] SARS-COV-2 COVID-19 2020-12-29 Completed Unive rsity of PFIZER VACCINE 00:00:00 [facility] SARS-COV-2 COVID-19 2020-12-29 Completed Unive rsity of PFIZER VACCINE 00:00:00 [facility] SARS-COV-2 COVID-19 2020-12-29 Completed Unive rsity of PFIZER VACCINE 00:00:00 [place] [facility] SARS-COV-2 COVID-19 2020-12-29 Completed Unive rsity of PFIZER VACCINE 00:00:00 [facility] Branch SARS-COV-2 COVID-19 2020-12-29 Completed Unive rsity of PFIZER VACCINE 00:00:00 [facility] Branch SARS-COV-2 COVID-19 2020-12-07 Completed Unive rsity of PFIZER VACCINE 00:00:00 [facility] Branch SARS-COV-2 COVID-19 2020-12-07 Completed Unive rsity of PFIZER VACCINE 00:00:00 [facility] Branch SARS-COV-2 COVID-19 2020-12-07 Completed Unive rsity of PFIZER VACCINE 00:00:00 [facility] SARS-COV-2 COVID-19 2020-12-07 Completed Unive rsity of PFIZER VACCINE 00:00:00 [facility] Branch SARS-COV-2 COVID-19 2020-12-07 Completed Unive rsity of PFIZER VACCINE 00:00:00 [facility] Branch SARS-COV-2 COVID-19 2020-12-07 Completed Unive rsity of PFIZER VACCINE 00:00:00 [facility] Branch SARS-COV-2 COVID-19 2020-12-07 Completed Unive rsity of PFIZER VACCINE 00:00:00 [facility] SARS-COV-2 COVID-19 2020-12-07 Completed Unive rsity of PFIZER VACCINE 00:00:00 [facility] SARS-COV-2 COVID-19 2020-12-07 Completed Unive rsity of PFIZER VACCINE 00:00:00 [facility] SARS-COV-2 COVID-19 2020-12-07 Completed Unive rsity of PFIZER VACCINE 00:00:00 [facility] Branch SARS-COV-2 COVID-19 2020-12-07 Completed Unive rsity of PFIZER VACCINE 00:00:00 [facility] Branch SARS-COV-2 COVID-19 2020-12-07 Completed Unive rsity of PFIZER VACCINE 00:00:00 [facility] SARS-COV-2 COVID-19 2020-12-07 Completed Unive rsity of PFIZER VACCINE 00:00:00 [facility] Branch SARS-COV-2 COVID-19 2020-12-07 Completed Unive rsity of PFIZER VACCINE 00:00:00 [facility] SARS-COV-2 COVID-19 2020-12-07 Completed Unive rsity of PFIZER VACCINE 00:00:00 [facility] SARS-COV-2 COVID-19 2020-12-07 Completed Unive rsity of PFIZER VACCINE 00:00:00 [facility] SARS-COV-2 COVID-19 2020-12-07 Completed Unive rsity of PFIZER VACCINE 00:00:00 [facility] SARS-COV-2 COVID-19 2020-12-07 Completed Unive rsity of PFIZER VACCINE 00:00:00 [facility] SARS-COV-2 COVID-19 2020-12-07 Completed Unive rsity of PFIZER VACCINE 00:00:00 [facility] SARS-COV-2 COVID-19 2020-12-07 Completed Unive rsity of PFIZER VACCINE 00:00:00 [facility] Branch SARS-COV-2 COVID-19 2020-12-07 Completed Unive rsity of PFIZER VACCINE 00:00:00 [facility] SARS-COV-2 COVID-19 2020-12-07 Completed Unive rsity of PFIZER VACCINE 00:00:00 [facility] SARS-COV-2 COVID-19 2020-12-07 Completed Unive rsity of PFIZER VACCINE 00:00:00 [facility] SARS-COV-2 COVID-19 2020-12-07 Completed Unive rsity of PFIZER VACCINE 00:00:00 [facility] SARS-COV-2 COVID-19 2020-12-07 Completed Unive rsity of PFIZER VACCINE 00:00:00 [facility] SARS-COV-2 COVID-19 2020-12-07 Completed Unive rsity of PFIZER VACCINE 00:00:00 [facility] SARS-COV-2 COVID-19 2020-12-07 Completed Unive rsity of PFIZER VACCINE 00:00:00 [facility] SARS-COV-2 COVID-19 2020-12-07 Completed Unive rsity of PFIZER VACCINE 00:00:00 [facility] SARS-COV-2 COVID-19 2020-12-07 Completed Unive rsity of PFIZER VACCINE 00:00:00 [facility] Branch SARS-COV-2 COVID-19 2020-12-07 Completed Unive rsity of PFIZER VACCINE 00:00:00 [facility] SARS-COV-2 COVID-19 2020-12-07 Completed Unive rsity of PFIZER VACCINE 00:00:00 [facility] SARS-COV-2 COVID-19 2020-12-07 Completed Unive rsity of PFIZER VACCINE 00:00:00 [facility] SARS-COV-2 COVID-19 2020-12-07 Completed Unive rsity of PFIZER VACCINE 00:00:00 [facility] SARS-COV-2 COVID-19 2020-12-07 Completed Unive rsity of PFIZER VACCINE 00:00:00 [facility] SARS-COV-2 COVID-19 2020-12-07 Completed Unive rsity of PFIZER VACCINE 00:00:00 [facility] SARS-COV-2 COVID-19 2020-12-07 Completed Unive rsity of PFIZER VACCINE 00:00:00 [facility] SARS-COV-2 COVID-19 2020-12-07 Completed Unive rsity of PFIZER VACCINE 00:00:00 [facility] SARS-COV-2 COVID-19 2020-12-07 Completed Unive rsity of PFIZER VACCINE 00:00:00 [facility] SARS-COV-2 COVID-19 2020-12-07 Completed Unive rsity of PFIZER VACCINE 00:00:00 [facility] SARS-COV-2 COVID-19 2020-12-07 Completed Unive rsity of PFIZER VACCINE 00:00:00 [facility] Vital Signs Vital Name Observation Time Observation Value Comments Source BP Diastolic 2023-02-05 00:00:00 61 mm[Hg] [facility] Height 2023-02-05 00:00:00 69 [in_i] [facility] BMI (Body Mass 2023-02-05 00:00:00 25.3 kg/m2 [facility] Medical Index) BP Systolic 2023-02-05 00:00:00 113 mm[Hg] [facility] Body Weight 2023-02-05 00:00:00 2736 [oz_av] [facility] BP Diastolic 2023-02-02 00:00:00 88 mm[Hg] [facility] Height 2023-02-02 00:00:00 69 [in_i] [facility] BMI (Body Mass 2023-02-02 00:00:00 26.4 kg/m2 [facility] Medical Index) BP Systolic 2023-02-02 00:00:00 136 mm[Hg] [facility] Body Weight 2023-02-02 00:00:00 2856 [oz_av] [facility] BP Diastolic 2023-01-27 00:00:00 79 mm[Hg] [facility] Height 2023-01-27 00:00:00 69 [in_i] [facility] BMI (Body Mass 2023-01-27 00:00:00 26.3 kg/m2 [facility] Medical Index) BP Systolic 2023-01-27 00:00:00 130 mm[Hg] [facility] Body Weight 2023-01-27 00:00:00 2853 [oz_av] [facility] Systolic blood 2023-01-18 16:37:00 158 mm[Hg] Univer sity of pressure [facility] Diastolic blood 2023-01-18 16:37:00 92 mm[Hg] Unive rsity of pressure [facility] Heart rate 2023-01-18 16:37:00 90 /min Universi ty [facility] Systolic blood 2023-01-18 15:47:00 155 mm[Hg] Univer sity of pressure [facility] Diastolic blood 2023-01-18 15:47:00 109 mm[Hg] Unive rsity of pressure [facility] Heart rate 2023-01-18 15:45:00 103 /min Universi ty [facility] Body height 2023-01-18 15:45:00 [facility] 2023-01-18 15:45:00 78.835 kg Univers ty [facility] BMI 2023-01-18 15:45:00 25.67 kg/m2 [facility] BP Diastolic 2022-12-29 00:00:00 75 mm[Hg] [facility] Height 2022-12-29 00:00:00 69 [in_i] [facility] BMI (Body Mass 2022-12-29 00:00:00 26.3 kg/m2 [facility] Index) BP Systolic 2022-12-29 00:00:00 138 mm[Hg] [facility] Body Weight 2022-12-29 00:00:00 2853 [oz_av] [facility] BP Diastolic 2022-12-15 00:00:00 78 mm[Hg] [facility] Height 2022-12-15 00:00:00 69 [in_i] [facility] BMI (Body Mass 2022-12-15 00:00:00 25.7 [facility]2 [facility] BP Systolic 2022-12-15 00:00:00 138 mm[Hg] [facility] Body Weight 2022-12-15 00:00:00 2784 [oz_av] [facility] BP Diastolic 2022-11-24 00:00:00 81 mm[Hg] [facility] Height 2022-11-24 00:00:00 69 [in_i] [facility] BMI (Body Mass 2022-11-24 00:00:00 25.7 kg/m2 [facility] BP Systolic 2022-11-24 00:00:00 139 mm[Hg] [facility] Body Weight 2022-11-24 00:00:00 2784 [oz_av] [facility] BP Diastolic 2022-10-16 00:00:00 88 mm[Hg] [facility] Height 2022-10-16 00:00:00 69 [in_i] [facility] BMI (Body Mass 2022-10-16 00:00:00 25.8 kg/m2 [facility] BP Systolic 2022-10-16 00:00:00 134 mm[Hg] [facility] Body Weight 2022-10-16 00:00:00 2792 [oz_av] [facility] BP Diastolic 2022-10-09 00:00:00 77 mm[Hg] [facility] Height 2022-10-09 00:00:00 69 [in_i] [facility] BMI (Body Mass 2022-10-09 00:00:00 25.5 kg/m2 [facility]) BP Systolic 2022-10-09 00:00:00 138 mm[Hg] [facility] Body Weight 2022-10-09 00:00:00 2758 [oz_av] [facility] BP Diastolic 2022-09-29 00:00:00 82 mm[Hg] [facility] Height 2022-09-29 00:00:00 69 [in_i] [facility] BMI (Body Mass 2022-09-29 00:00:00 24.8 kg/m2 [facility] Medical Index) BP Systolic 2022-09-29 00:00:00 142 mm[Hg] [facility] Body Weight 2022-09-29 00:00:00 2688 [oz_av] [facility] Systolic blood 2022-09-25 21:32:00 150 mm[Hg] Univer sity of [facility] Diastolic blood 2022-09-25 21:32:00 92 mm[Hg] Unive rsity of [facility] Body height 2022-09-25 15:49:00 175.3 cm Universi [facility] Body Weight 2022-09-22 00:00:00 2688 [oz_av] [facility] BP Diastolic 2022-09-22 00:00:00 77 mm[Hg] [facility] Height 2022-09-22 00:00:00 69 [in_i] [facility] BMI (Body Mass 2022-09-22 00:00:00 24.8 kg/m2 [facility] Medical Index) BP Systolic 2022-09-22 00:00:00 138 mm[Hg] [facility] BP Diastolic 2022-09-15 00:00:00 77 mm[Hg] [facility] BP Systolic 2022-09-15 00:00:00 138 mm[Hg] [facility] Body Weight 2022-09-15 00:00:00 2672 [oz_av] [facility] Systolic blood 2022-09-10 18:52:00 132 mm[Hg] Univer sity of [facility] Diastolic blood 2022-09-10 18:52:00 77 mm[Hg] Unive rsity of [facility] Heart rate 2022-09-10 18:46:00 75 /min Universi ty [facility] [place] [facility] Respiratory rate 2022-09-10 18:46:00 20 /min Univ ersity [facility] [place] [facility] [place] Body height 2022-09-10 18:46:00 175.3 cm [facility]i ty [facility] [place] [facility] [place] Body weight 2022-09-10 18:46:00 78.835 kg Universi ty [facility] [place] [facility] BMI 2022-09-10 18:46:00 25.67 kg/m2 Universi ty of [facility] Oxygen saturation in 2022-09-10 18:46:00 97 /min [facility] Arterial blood by [facility] Pulse oximetry Branch BP Diastolic 2022-09-08 00:00:00 79 mm[Hg] [facility] Height 2022-09-08 00:00:00 69 [in_i] [facility] BMI (Body Mass 2022-09-08 00:00:00 24.7 kg/m2 [facility] Index) BP Systolic 2022-09-08 00:00:00 136 mm[Hg] [facility] Body Weight 2022-09-08 00:00:00 2672 [oz_av] [facility] Systolic blood 2022-08-21 14:30:00 162 mm[Hg] Univer sity of pressure [facility] Diastolic blood 2022-08-21 14:30:00 106 mm[Hg] Unive rsity of [facility] Heart rate 2022-08-21 14:30:00 65 /min [facility]i ty [facility] [place] [facility] [place] Body weight 2022-08-21 14:17:00 74.844 kg Universi ty [facility] [place] [facility] [place] BMI 2022-08-21 14:17:00 21.77 kg/m2 Universi ty of [facility] Systolic blood 2022-05-02 20:58:00 170 mm[Hg] Univer sity of pressure [facility] Diastolic blood 2022-05-02 20:58:00 89 mm[Hg] Unive rsity of pressure [facility] Heart rate 2022-05-02 20:58:00 80 /min [facility]i ty [facility] [place] [facility] [place] Respiratory rate 2022-05-02 20:58:00 16 /min Univ ersity of [facility] Oxygen saturation in 2022-05-02 20:58:00 98 /min University of Arterial blood by [facility] Pulse oximetry Branch Body temperature 2022-05-02 16:41:00 36.67 Genevieve Univ ersity of [place] [facility] Body weight 2022-05-02 16:41:00 63.957 kg Universi ty [facility] [place] [facility] BMI 2022-05-02 16:41:00 18.61 kg/m2 [facility] [place] [facility] Systolic blood 2022-05-01 13:04:00 163 mm[Hg] Univer sity of pressure [place] [facility] Diastolic blood 2022-05-01 13:04:00 91 mm[Hg] Unive rsity of pressure [place] [facility] Heart rate 2022-05-01 13:04:00 68 /min [facility]i ty [facility] [place] [facility] Body temperature 2022-05-01 13:04:00 36.72 Genevieve Univ ersity [facility] [place] [facility] Respiratory rate 2022-05-01 13:04:00 18 /min Univ ersity [facility] [place] [facility] Oxygen saturation in 2022-05-01 13:04:00 98 /min University of Arterial blood by [facility] Pulse oximetry Branch Body height 2022-04-30 12:32:00 185.4 cm Universi ty [facility] [place] [facility] Body weight 2022-04-30 12:32:00 64 kg [facility]i ty [facility] [place] [facility] BMI 2022-04-30 12:32:00 18.62 kg/m2 [facility] [place] [facility] Systolic blood 2022-04-29 02:45:00 154 mm[Hg] Univer sity of pressure [place] [facility] Diastolic blood 2022-04-29 02:45:00 125 mm[Hg] Unive rsity of pressure [place] [facility] Heart rate 2022-04-29 02:45:00 69 /min [facility]i ty [facility] [place] [facility] Respiratory rate 2022-04-29 02:45:00 20 /min Univ ersity [facility] [place] [facility] Oxygen saturation in 2022-04-29 02:45:00 99 /min University of Arterial blood by [facility] Pulse oximetry Branch Body temperature 2022-04-28 23:07:00 36.61 Genevieve Univ ersity [facility] [place] [facility] Body weight 2022-04-28 23:07:00 63.504 kg [facility]i ty [facility] [place] [facility] BMI 2022-04-28 23:07:00 18.47 kg/m2 [facility] Procedures Procedure Date / Time Performing Clinician Source Performed AUTHORIZATION TO RELEASE 2022-09-10 06:01:00 Doctor Neda, [facility] PHI TO [facility] [place] [facility] [place] HEAD WO CONTRAST 2022-09-04 18:24:15 Arcadio Blair Fam[facility] ASSIGNMENT OF BENEFITS 2022-09-04 18:09:30 [facility] [place] [facility] ASSIGNMENT OF BENEFITS 2022-08-21 13:37:31 Doctor Unassigned, [facility] [place] [facility] REFERRAL- 2022-07-21 05:01:00 Doctor Neda, [facility] REQUEST/RESPONSE [place] [facility] REFERRAL- 2022-06-27 05:01:00 Doctor Neda, [facility] REQUEST/RESPONSE [place] [facility] EKG-12 LEAD 2022-05-02 20:34:45 Alicia Talley [facility] URINALYSIS 2022-05-02 17:42:00 Alicia Talley [facility] LACTIC ACID WHOLE BLOOD 2022-05-02 17:34:00 Alicia Talley [facility] TROPONIN I 2022-05-02 17:33:00 Alicia Talley [facility] COMP. METABOLIC PANEL 2022-05-02 17:33:00 Alicia Talley [facility] ([id number]) Medical Branch ETHANOL 2022-05-02 17:33:00 Alicia Talley [facility] CBC WITH DIFF 2022-05-02 17:33:00 Alicia Talley [facility] CONSENT/REFUSAL FOR 2022-05-02 16:41:24 Doctor Red [facility] DIAGNOSIS AND TREATMENT [place] [facility] PHOSPHORUS 2022-05-01 05:14:00 [place] [facility] MAGNESIUM 2022-05-01 05:14:00 [place] [facility] BASIC METABOLIC PANEL 2022-05-01 05:14:00 [place] [facility] (NA, K, CL, CO2, GLUCOSE, Medica l Branch BUN, CREATININE, CA) TRANSTHORACIC ECHO (TTE) 2022-04-30 19:17:[address] [facility] COMPLETE [facility] MAGNESIUM 2022-04-30 15:45:[address] [facility] BASIC METABOLIC PANEL 2022-04-30 15:45:00 Jose Roberto Plaza [facility] (NA, K, CL, CO2, GLUCOSE, [facility] BUN, CREATININE, CA) CT CERVICAL SPINE WO 2022-04-30 15:08:06 [place] [facility] CONTRAST [facility] CT HEAD WO CONTRAST 2022-04-30 15:08:06 [place] [facility] OSMOLALITY URINE 2022-04-30 11:27[facility]OASSAY[facility] 2022-04-30 11:27:00 [place] [facility] SCREEN URINALYSIS 2022-04-30 11:27:[address] [facility] CREATININE, URINE RANDOM 2022-04-30 11:27:00 Jose Roberto Plaza [facility] SODIUM, URINE RANDOM 2022-04-30 11:27:00 Jose Roberto Plaza [facility] ACTIVATED PARTIAL 2022-04-30 11:26:00 B[facility] PROTHROMBIN TIME / INR 2022-04-30 05:27:00 Jose Roberto Plaza [facility] ACTIVATED PARTIAL 2022-04-30 05:27:00 [facility] 2022-04-29 23:20:00 Jose [address] [facility] MAGNESIUM 2022-04-29 23:20:00 Jose [address] [facility] OSMOLALITY, SERUM OR 2022-04-29 23:20:00 Jose Roberto Plaza [facility] PLASMA [facility] TROPONIN I 2022-04-29 23:20:00 Bubba Echevarria [facility] THYROID STIMULATING 2022-04-29 23:20:00 Jose Roberto Plaza [facility] HORMONE [facility] COMP. METABOLIC PANEL 2022-04-29 23:20:00 Bubba Echevarria [facility] ([id number]) Medical Branch LIPID PANEL ([id number])(TOTAL 2022-04-29 23:20:00 [facility] TRIGLYCERIDES, HDL) CBC WITH DIFF 2022-04-29 23:20:00 [facility] GLYCOSYLATED HEMOGLOBIN 2022-04-29 23:20:00 [facility] N-TERMINAL PRO-BNP 2022-04-29 23:20:00 [facility] FREE T3 2022-04-29 23:20[facility] (ID NOW RAPID 2022-04-29 23:20:00 [facility] LAB ONLY COVID 2022-04-29 23:20:00 [facility] INTERPRETATION [facility] XR CHEST 1 VW 2022-04-29 22:57:00 [facility] HB ECG ROUTINE & RHYTHM 2022-04-29 21:53:[address] [facility] STRIP [facility] XR CHEST 2 VW 2022-04-29 00:46:00 Bernardo Rodríguez [facility] EKG-12 LEAD 2022-04-29 00:23:05 Bernardo Rodríguez [facility] LIPASE 2022-04-29 00:08:00 Bernardo Rodríguez [facility] TROPONIN I 2022-04-29 00:08:00 Bernardo Rodríguez [facility] HEPATIC FUNCTION PANEL 2022-04-29 00:08:00 Bernardo Rodríguez [facility] ([id number]) (ALB,T.PRO,BILI Medical Branch T,BU/BC,ALT,AST,ALK PHOS) BASIC METABOLIC PANEL 2022-04-29 00:08:00 Bernardo Rodríguez [facility] (NA, K, CL, CO2, GLUCOSE, Medica l Branch BUN, CREATININE, CA) CBC WITH DIFF 2022-04-29 00:08:00 Bernardo Rodríguez [facility] N-TERMINAL PRO-BNP 2022-04-29 00:08:00 Bernardo Rodríguez [facility] COVID-19 (ID NOW RAPID 2022-04-29 00:08:00 Bernardo Rodríguez [facility] TESTING) Medical Branch Encounters Start End Encounter Admission Attending Care Care Encounter Source Date/Time Date/Time Type Type Clinicians Facility Department ID 2023-04-23 2023-04-23 Outpatient [facility] 253 [id number] [facility] 00:00:00 00:00:00 d_J [id number] Medica l 2023-04-22 2023-04-22 Outpatient [facility] PRIV PRIV 253 [id number] [facility] 00:00:00 00:00:00 d_J [id number] Medica l 2023-04-21 2023-04-21 Outpatient [facility] PRIV PRIV 253 [id number] [facility] 00:00:00 00:00:00 d_J [id number] Medica l 2023-04-20 2023-04-20 Outpatient [facility]od PRIV PRIV 253 [id number] [facility] 00:00:00 00:00:00 d_J [id number] Medica l 2023-04-15 2023-04-15 Outpatient [facility] PRIV PRIV 253 [id number] [facility] 00:00:00 00:00:00 d_J [id number] Medica l 2023-04-14 2023-04-14 Outpatient [facility] PRIV PRIV 253 [id number] [facility] 00:00:00 00:00:00 d_J [id number] Medica l 2023-04-13 2023-04-13 Outpatient [facility] PRIV PRIV 253 [id number] [facility] 00:00:00 00:00:00 d_J [id number] Medica l 2023-04-07 2023-04-07 Outpatient [facility] PRIV PRIV 253 [id number] [facility] 00:00:00 00:00:00 d_J [id number] Medica l 2023-03-19 2023-03-19 Outpatient [facility] PRIV PRIV 253 [id number] [facility] 00:00:00 00:00:00 d_J [id number] Medica l 2023-03-10 2023-03-10 Outpatient [facility] PRIV PRIV 253 [id number] [facility] 00:00:00 00:00:00 d_J [id number] Medica l 2023-03-10 2023-03-10 Outpatient [facility]Tod PRIV PRIV 253 [id number] [facility] 00:00:00 00:00:00 d_J [id number] Medica l 2023-03-04 2023-03-04 Outpatient [facility] PRIV PRIV 253 [id number] [facility] 00:00:00 00:00:00 d_J [id number] Medica l 2023-03-02 2023-03-02 Outpatient [facility] PRIV PRIV 253 [id number] [facility] 00:00:00 00:00:00 d_J [id number] Medica l 2023-02-25 2023-02-25 Outpatient [facility] PRIV PRIV 253 [id number] [facility] 00:00:00 00:00:00 d_J [id number] Medica l 2023-02-05 2023-02-05 Randi [facility] 414 [facility] 00:00:00 00:00:00 LANDON Parsons: Health - Med ical [address] [place] [address] , Ph. 2023-02-02 2023-02-02 Outpatient [facility]Tod PRIV PRIV 253 [id number] [facility] 00:00:00 00:00:00 d_J [id number] Medica l 2023-02-02 2023-02-02 Outpatient [facility]Tod PRIV PRIV 253 [id number] [facility] 00:00:00 00:00:00 d_J [id number] Medica l 2023-02-02 2023-02-02 Outpatient [facility]Tod PRIV PRIV 253 [id number] [facility] 00:00:00 00:00:00 d_J [id number] Medica l 2023-02-02 2023-02-02 Outpatient [facility]Tod PRIV PRIV 253 [id number] [facility] 00:00:00 00:00:00 d_J [id number] Medica l 2023-02-02 2023-02-02 Pino Bee [facility] 202 [id number] [facility] 00:00:00 00:00:00 Juan Pablo [facility] - Med ical MD: [address] [place] [address] , Ph. 2023-01-27 2023-01-27 Randi [facility] [id number] [facility] 00:00:00 00:00:00 LANDON Parsons: Health - Med ical [address] [place] [address] , Ph. 2023-01-20 2023-01-20 Outpatient [facility]Tod PRIV PRIV 253 [id number] [facility] 00:00:00 00:00:00 d_J [id number] Medica l 2023-01-20 2023-01-20 Outpatient [facility]Tod PRIV PRIV 253 [id number] [facility] 00:00:00 00:00:00 d_J [id number] Medica l 2023-01-20 2023-01-20 Outpatient [facility]Tod PRIV PRIV 253 [id number] [facility] 00:00:00 00:00:00 d_J [id number] Medica l 2023-01-18 2023-01-18 Outpatient Betty ESQUIVEL [facility] [id number] Univers 11:00:00 11:31:14 BABAK king [facility] 2023-01-18 2023-01-18 Office Alvin [facility] 1.2.840.114 [id number] Univers 11:00:00 11:31:[address] [facility] 350.1.13.10 it y of [facility] 4.2.7.2.686 Jey as STEPAN?BLEA [id number] [address] OFFICE [facility] 2023-01-12 2023-01-12 Telephone Alvin [facility] 1.2.255.857 [id number] Univers 00:00:00 00:00:00 AD[employer]ity 350.1.13.10 it y of [facility] 4.2.7.2.686 Jey as STEPAN?BLEA [id number] [address] 2022-12-29 2022-12-29 Randi [facility] [id number] [facility] 00:00:00 00:00:00 LANDON Parsons: Health - Med ical [address] [place] [address] , Ph. 2022-12-19 2022-12-19 Outpatient [facility]Tod PRIV PRIV 253 [id number] [facility] 00:00:00 00:00:00 d_J [id number] Medica l 2022-12-19 2022-12-19 Outpatient [facility]Tod PRIV PRIV 253 [id number] [facility] 00:00:00 00:00:00 d_J [id number] Medica l 2022-12-18 2022-12-18 Outpatient [facility]Tod PRIV PRIV 253 [id number] [facility] 00:00:00 00:00:00 d_J [id number] Medica l 2022-12-15 2022-12-15 Randi [facility] 221 [facility] 00:00:00 00:00:00 LANDON Parsons: Health - Med ical [address] [place] [address] , Ph. 2022-12-08 2022-12-08 Outpatient Betty LAMB [facility] [id number] Univers 15:30:00 15:30:00 SENDIL fernando [facility] 2022-11-24 2022-11-24 Randi [facility] 131 [facility] 00:00:00 00:00:00 LANDON Parsons: Health - Med ical [address] [facility] [place] [address] , Ph. 2022-11-10 2022-11-10 Outpatient Betty LAMB [facility] [id number] [facility] 15:30:00 15:30:00 SENDIL ity [facility] 2022-11-02 2022-11-02 Patient Jayna Rizvi 1.2.840.114 [id number] [facility] 00:00:00 00:00:00 Outreach E OLIVERA 350.1.13.10 i ty of [place] 4.2.7.2.686 [place] [id number] [address] 2022-10-30 2022-10-30 Outpatient [facility]Tod PRIV PRIV 253 [id number] [facility] 00:00:00 00:00:00 d_J [id number] Medica l 2022-10-30 2022-10-30 Outpatient [facility]Tod PRIV PRIV 253 [id number] [facility] 00:00:00 00:00:00 d_J [id number] Medica l 2022-10-30 2022-10-30 Outpatient [facility]Tod PRIV PRIV 253 [id number] [facility] 00:00:00 00:00:00 d_J [id number] Medica l 2022-10-29 2022-10-29 Outpatient [facility]Tod PRIV PRIV 253 [id number] [facility] 00:00:00 00:00:00 d_J [id number] Medica l 2022-10-29 2022-10-29 Outpatient [facility]Tod PRIV PRIV 253 [id number] [facility] 00:00:00 00:00:00 d_J [id number] Medica l 2022-10-16 2022-10-16 Randi [facility] 223 [facility] 00:00:00 00:00:00 LANDON Parsons: Health - Med ical [address] [place] [address] , Ph. 2022-10-09 2022-10-09 Randi [facility] [id number] [facility] 00:00:00 00:00:00 LANDON Parsons: [facility] - Med ical [address] [place] [address] , Ph. 2022-10-03 2022-10-03 Outpatient [facility]_Tod PRIV PRIV 253 [id number] [facility] 00:00:00 00:00:00 d_J [id number] Medica l 2022-10-03 2022-10-03 Outpatient [facility]Tod PRIV PRIV 253 [id number] [facility] 00:00:00 00:00:00 d_J [id number] Medica l 2022-10-03 2022-10-03 Outpatient [facility]_Tod PRIV PRIV 253 [id number] [facility] 00:00:00 00:00:00 d_J [id number] Medica l 2022-10-03 2022-10-03 Outpatient [facility]Tod PRIV PRIV 253 [id number] [facility] 00:00:00 00:00:00 d_J [id number] Medica l 2022-10-03 2022-10-03 Outpatient [facility]Tod PRIV PRIV 253 [id number] [facility] 00:00:00 00:00:00 d_J [id number] Medica l 2022-10-03 2022-10-03 Outpatient [facility]Tod PRIV PRIV 253 [id number] [facility] 00:00:00 00:00:00 d_J [id number] Medica l 2022-09-29 2022-09-29 Outpatient [facility]_Tod PRIV PRIV 253 [id number] [facility] 00:00:00 00:00:00 d_J [id number] Medica l 2022-09-29 2022-09-29 Outpatient [facility]_Tod PRIV PRIV 253 [id number] [facility] 00:00:00 00:00:00 d_J [id number] Medica l 2022-09-29 2022-09-29 Outpatient [facility]_Tod PRIV PRIV 253 [id number] [facility] 00:00:00 00:00:00 d_J [id number] Medica l 2022-09-29 2022-09-29 Pino Bee [facility] 202 [facility] 00:00:00 00:00:00 Juan Pablo Health - Med ical MD: [address] [address] , Ph. 2022-09-25 2022-09-25 Outpatient R ALVIN [facility] [id number] Univers 10:30:00 10:47:39 BABAK fernando [facility] 2022-09-25 2022-09-25 Office Alvin [facility] 1.2.840.114 [id number] Univers 10:30:00 10:47:39 Visit [employer] 350.1.13.10 it y of [place] 4.2.7.2.686 Jey as STEPAN?BLEA [id number] [address] OFFICE [facility] 2022-09-23 2022-09-23 Patient TRIXIE Szymanski 1.2.840.114 [id number] [facility] 00:00:00 00:00:00 Outreach Ileana Cherise OLIVERA 350.1.13.10 i ty of [place].2.[place] [id number] [address] 2022-09-22 2022-09-22 Randi [facility] [id number] [facility] 00:00:00 00:00:00 LANDON Parsons: Health - Med ical [address] [place] [address] , Ph. 2022-09-21 2022-09-21 Outpatient [facility]_Tod PRIV PRIV 253 [id number] [facility] 00:00:00 00:00:00 maria l_James [id number] Medica l 2022-09-20 2022-09-20 Outpatient [facility]_Tod PRIV PRIV 253 [id number] [facility] 00:00:00 00:00:00 d_James [id number] Medica l 2022-09-15 2022-09-15 Randi [facility] [place] [facility] 122 [facility] 00:00:00 00:00:00 LANDON Parsons: Health - Med ical [address] [place] [address] , Ph. 2022-09-10 2022-09-10 Outpatient R ZAINAB [facility] [id number] Univers 13:00:00 13:19:43 SENDIL ity of [facility] 2022-09-10 2022-09-10 Office Zainab [facility] 1.2.840.114 [id number] Univers 13:00:00 13:19:43 Visit Naa BECK 350.1.13.10 ity of [place] [id number] [facility] 059 [facility] 2022-09-10 2022-09-10 Patient Doctor [facility] 1.2.840.114 [id number] [facility] 00:00:00 00:00:00 Secure Msg Unassigned, HEALTH 350.1.13.10 ity of [place] 4.2.7.2.686 Jey as STEPAN?BLEA [id number] [facility] OFFICE [facility] 2022-09-10 2022-09-10 Orders Doctor JOSEFA 1.2.840.114 [id number] Univers 00:00:00 00:00:00 Only Unassigned, AUGUSTUS 350.1.13.10 ity of [place] [facility] 4.2.7.2.686 Jey as [id number] [address] 2022-09-09 2022-09-09 Outpatient [facility]_Tod PRIV PRIV 253 [id number] [facility] 00:00:00 00:00:00 d_J [id number] Medica l 2022-09-08 2022-09-08 Randi [facility] [place] [facility] 115 [facility] 00:00:00 00:00:00 LANDON Parsons: Health - Med ical [address] [place] [address] , Ph. 2022-09-04 2022-09-04 Outpatient BLAIR YANG [facility] [id number] Univers 12:11:00 23:59:00 BLAIR ERVIN [facility] 2022-09-04 2022-09-04 Hospital Arcadio [facility] 1.2.295.057 [id number] Univers 12:11:00 23:59:00 Encounter Blair [facility] 350.1.13.10 ity of [place] 4[place]2.7.2.686 [place] [facility] [id number] [facility] [address] 2022-09-04 2022-09-04 Orders Doctor JOSEFA 1.2.840.114 [id number] Univers 00:00:00 00:00:00 Only Unassigned, AUGUSTUS 350.1.13.10 ity of [place] [facility] 4.2.7.2.686 Jey as [id number] [facility] [address] 2022-08-21 2022-08-21 [employer] [facility], Ang - [facility] 1.2.840.1 14 [id number] Univers 11:30:00 11:45:00 Visit Blair Ervin [facility] 350.1.13. 10 ity of [facility] 4.2.7.2.686 Jey as STEPAN?BLEA [id number] [facility] [address] MEDICAL OFFICE [facility] 2022-08-21 2022-08-21 Outpatient BLAIR YANG [facility] [id number] Univers 09:00:00 10:20:54 BLAIR ERVIN [facility] 2022-08-21 2022-08-21 [facility] 1.2.840.114 [id number] Univers 09:00:00 10:20:54 Visit Blair [facility] 350.1.13.10 ity of [place] 4.2.7.2.686 Jey as STEAPN?BLEA [id number] [address] MEDICAL OFFICE [facility] 2022-08-21 2022-08-21 Orders Doctor JOSEFA 1.2.840.114 [id number] Univers 00:00:00 00:00:00 Only Unassigned, AUGUSTUS 350.1.13.10 ity of [place] [facility] 4.2.7.2.686 Jey as [id number] [address] 2022-08-11 2022-08-11 Patient TRIXIE Szymanski 1.2.840.114 [id number] Univers 00:00:00 00:00:00 Outreach Ileana E OLIVER[place] 350.1.13.10 i ty of [place] [id number] [address] 2022-07-30 2022-07-30 Outpatient R CORONA, [facility] [id number] Univers 13:00:00 13:00:00 PETROS olivo [facility] 2022-07-23 2022-07-23 Patient Dmitri Jayna MARCUM 1.2.840.114 [id number] [facility] 00:00:00 00:00:00 Outreach E OLIVERA 350.1.13.10 i ty of [place] [id number] [address] 2022-07-21 2022-07-21 Orders Doctor JOSEFA 1.2.840.114 [id number] Univers 00:00:00 00:00:00 Only Unassigned, AUGUSTUS 350.1.13.10 ity of [place] [facility] 4.2.7.2.686 Jey as [id number] [address] 2022-06-27 2022-06-27 Orders Doctor JOSEFA 1.2.840.114 [id number] Univers 00:00:00 00:00:00 Only Unassigned, AUGUSTUS 350.1.13.10 ity of [place] [facility] 4.2.7.2.686 Jey as [id number] [address] 2022-06-11 2022-06-11 Patient TRIXIE Szymanski 1.2.840.114 [id number] Univers 00:00:00 00:00:00 Outreach Ileana E OLIVER[place] 350.1.13.10 i ty of [place]2.[place] [id number] [address] 2022-06-09 2022-06-09 Patient Jayna Rizvi TRIXIE 1.2.840.114 [id number] Univers 00:00:00 00:00:00 Outreach E OLIVERA 350.1.13.10 i ty of [place]2.[place] [id number] [address] 2022-06-04 2022-06-04 Patient TRIXIE Spears 1.2.840.114 [id number] Univers 00:00:00 00:00:00 Outreach Zak ARZOLAY 350.1.13.10 ity of [place] [id number] [address] 2022-05-29 2022-05-29 Patient TRIXIE Spears 1.2.840.114 [id number] Univers 00:00:00 00:00:00 Outreach Zak Curtis OLIVER[place] 350.1.13.10 ity of [place]2.[place] [id number] [address] 2022-05-25 2022-05-25 Patient TRIXIE Spears 1.2.840.114 [id number] Univers 00:00:00 00:00:00 Outreach Zak Curtis OLIVER[place] 350.1.13.10 ity of [place].2.[place] [id number] [address] 2022-05-22 2022-05-22 Patient Jayna RizviGay 1.2.840.114 [id number] Univers 00:00:00 00:00:00 Outreach E OLIVERA 350.1.13.10 i ty of [place].2.[place] [id number] [address] 2022-05-20 2022-05-20 Patient TRIXIE Spears 1.2.840.114 [id number] Univers 00:00:00 00:00:00 Outreach Zak Curtis OLIVER[place] 350.1.13.10 ity of [place]2.[place] [id number] [address] 2022-05-19 2022-05-19 Patient Jayna RizviGay 1.2.840.114 [id number] Univers 10:00:00 11:00:00 Outreach E OLIVERA 350.1.13.10 i ty of [place].2.686 [place] [id number] [place] [address] [address] 2022-05-18 2022-05-18 Patient Jayna Rizvi 1.2.840.114 [id number] Univers 00:00:00 00:00:00 Outreach E OLIVERA 350.1.13.10 i ty of [place] 4[place]2.7.2.686 [place] [id number] [place] [address] [address] 2022-05-15 2022-05-15 Patient Jayna Rizvi 1.2.840.114 [id number] Univers 00:00:00 00:00:00 Outreach E OLIVERA 350.1.13.10 i ty of [place]2.[place] [id number] [address] 2022-05-11 2022-05-11 Patient Hussain Alvarezjordyn MARCUM 1.2.840.114 [id number] Univers 00:00:00 00:00:00 Outreach OLIVERA 350.1.13.10 i ty of [place]2.[place] [id number] [address] 2022-05-08 2022-05-08 Transition TRIXIE George 1.2.840.114 [id number] Univers 00:00:00 00:00:00 of Care Nidia OLIVERA 350.1.13.10 ity of [place]2.7.2.686 [place] [id number] [place] [address] [address] 2022-05-06 2022-05-06 Patient Darlene Alvarez TRIXIE 1.2.840.114 [id number] Univers 00:00:00 00:00:00 Outreach OLIVERA 350.1.13.10 i ty of [place] 4[place]2.7.2.686 [place] [id number] [place] [address] [address] 2022-05-04 2022-05-04 Transition TRIXIE George 1.2.840.114 [id number] Univers 00:00:00 00:00:00 of Care Nidia OLIVERA 350.1.13.10 ity of [place]2.[place].2.[place] [id number] [facility] [address] 2022-05-02 2022-05-02 Emergency X [facility] ERT [id number] Univers 11:45:00 16:29:00 ALICIA ity of [facility] 2022-05-02 2022-05-02 Emergency Mayank, TRAUMA 1.2.569.657 [id number] Univers 11:45:00 16:29:00 Alicia Cherise [place] 350.1.13.10 ity of 4[place]2.[place].2.[place] [id number] [facility] [address] 2022-04-29 2022-05-01 Inpatient X [facility] ZOEY [id number] Univers 16:35:00 18:23:00 DANIEL ity [facility] 2022-04-29 2022-05-01 [facility] Bernardo Rodríguez 1.2. 840.114 [id number] Univers 16:35:00 18:23:00 Encounter Dalton Chino 350.1.13.10 ity of [facility] 4.2.7.2 .686 [facility] Linda [id number] Medical Petar Jennings [address] 2022-04-28 2022-04-[address] [facility] ERT [id number] Univers 18:09:00 21:49:00 BERNARDO ity [facility] 2022-04-28 2022-04-28 Emergency Dellis, TRAUMA 1.2.889.273 [id number] Univers 18:09:00 21:49:00 Bernardo [place] 350.1.13.10 it y of [place]2.7.2.[place] [id number] [address] Results Test Description Test Time Test Comments Results Result Comments Source OCCULT BLD,FECAL,[facility] 2022-07-07 13:12:31 Test Item Value Reference Range Interpretation Comme nts OCCULT BLD, FECAL (test code NEGATIVE NEGATIVE UNLESS OTHERWISE INDICATED, ALL = 79025) TESTING PERFORM ED ATCLINICAL PATHOLOGY [employer] [address] [place] [address]195 MOBILITY MANAGER: KODI TRIANA M.D. CLIA NUMBER [id number] CAP ACCREDITATION N O. [id number] TSH, THIRD [id number] 04:48:56 Test Item Value Reference Range Interpretation Comments TSH, THIRD GENERATION (test code 0.698 UIU/ML 0.400-4.100 = 2821) PSA, [id number] 04:48:56 Test Item Value Reference Range Interpretation Comments PSA, TOTAL 2.51 NG/ML See_Comment NOTE: Methodol ogy is Zuleika (test code = Jayashree Electroch emiluminescence 2606) Immunoassay tra ceable to WHO reference stand angelo 96/760. UNLESS OTHERWIS E INDICATED, ALL TESTING PERFORM ED ATCLINICAL PATHOLOGY [employer], [facility]. [address] [place] [address] LABORATORY DIRE CTOR: KODI TRIANA M.D. CLIA NUMBER [id number] [place]. [id number] [A utomated message] The sy stem which generated this result transmitted ref erence range: <=4.00. The ref erence range was not used to int erpret this result as bijan l/abnormal. LIPID [id number] 04:23:44 Test Item Value Reference Range Interpretation [...] MOREINFORMATION , SEE CLIENT ANNOUNCE MENT AT [email or web address] RISK RATIO LDL/HDL 2.87 RATIO <3.55 (test code = 2238) COMPREHENSIVE METABOLIC [id number] 04:23:44 Test Item Value Reference Range Interpretation Comments GLUCOSE (test code = 89 MG/DL 70-99 2216) BUN (test code = 14 MG/DL 8-23 2208) CREATININE (test 0.85 MG/DL 0.80-1.40 code = 221) eGFR (2020 CKD-EPI) 93 ML/MIN/1.73 >60 (test code = 66148) CALC BUN/CREAT (test 16 RATIO 6-28 code = 2235) SODIUM (test code = 147 MEQ/L 133-146 H 2230) POTASSIUM (test code 4.2 MEQ/L 3.5-5.4 = 2227) CHLORIDE (test code 107 MEQ/L 95-107 = 2214) CARBON DIOXIDE (test 28 MEQ/L 19-31 code = 220) CALCIUM (test code = 9.9 MG/DL 8.5-10.5 2208) PROTEIN, TOTAL (test 8.0 G/DL 6.1-8.3 code = 2228) ALBUMIN (test code = 4.7 G/DL 3.5-5.2 2200) CALC GLOBULIN (test 3.3 G/DL 1.9-3.7 code = 224) CALC A/G RATIO (test 1.4 RATIO 1.0-2.6 code = 2233) BILIRUBIN, TOTAL 0.9 MG/DL See_Comment [Automated message] [...] code = 19 U/L 5-50 2218) HEMOGLOBIN [id number] 03:10:09 Test Item Value Reference Range Interpretation Comments HEMOGLOBIN A1c (test code = 03317) 5.5 % 4.2-5.6 CBC W/AUTO DIFF WITH [id number] 01:57:11 Test Item Value Reference Range Interpretation [...] RBCS 0.00 K/UL 0.00-0.11 (test code = 97974) Lactic Acid Whole [id number] 17:48:24 Test Item Value Reference Range Interpretation Comments LACTIC ACID (test code = 1.59 mmol/L 0.50-2.20 2660452470) Lab Interpretation (test code = Normal 82742-8) [facility] METABOLIC PANEL (NA, K, CL, CO2, GLUCOSE, BUN, CREATININE, CA)2022-05-01 06:55:06 Test Item Value Reference Range Interpretation Comments NA (test code = 140 mmol/L 135-145 3062387356) K (test code = 3.9 mmol/L 3.5-5.0 7283421257) CL (test code = 111 mmol/L 98-108 H 3668543745) CO2 TOTAL (test code = 24 mmol/L 23-31 5102112644) AGAP (test code = 2-16 2238587455) BUN (test code = 25 mg/dL 7-23 H 6078530558) GLUCOSE (test code = 86 mg/dL 70-110 5645953330) CREATININE (test code = 0.64 mg/dL 0.60-1.25 3643427136) CALCIUM (test code = 8.0 mg/dL 8.6-10.6 L 8401421349) eGFR (test code = mL/min/1.73m2 2885789394) NEYMAR (test code = NEYMAR) Association of [...] tests). Lab Interpretation Abnormal (test code = 70258-4) [facility] Test Item Value Reference Range Interpretation Comments MAGNESIUM (test code = 1368927970) 1.9 mg/dL 1.7-2.4 Lab Interpretation (test code = Normal 46792-6) [facility] Test Item Value Reference Range Interpretation Comments PHOSPHORUS (test code = 7168924285) 2.5 mg/dL 2.5-5.0 Lab Interpretation (test code = Normal 24165-3) [facility]2022-04-30 20:28:01 Test Item Value Reference Range Interpretation Comments Height (test code = in 1920262832) Weight (test code = lbs 3779642783) Systolic BP (test code mmHg = 3412903596) Diastolic BP (test code mmHg = 9062157963) Heart Rate (test code = bpm 0127098522) LVOT stroke volume 47.40 cm3 (test code = 5359783811) EF(Teich) (test code = 63.50 % 1483527321) LVIDD (test code = 5.20 cm 9839458392) LVIDS (test code = 3.40 cm 6475207655) IVS (test code = 1.24 cm 9101974589) LVPWD (test code = 1.21 cm 5578634850) LVOT diameter (test 2.29 cm code = 2666393463) FS (test code = 35 % 6773569333) MV Peak E Jovon (test 65.6 cm/s code = 9551583866) E wave decelartion time 0.19 s (test code = 8258348388) LVOT peak jovon (test 65.1 cm/s code = 2003070268) LVOT mn grad (test code mmHg = 5129909941) LA size (test code = 3.6 cm 9837622836) Aortic valve mean 73.8 cm/s velocity (test code = 1685679642) Ao peak jovon (test code 115.8 cm/s = 0262033442) Ao VTI (test code = 17.4 cm 4479754602) AV LVOT peak gradient mmHg (test code = 6563126605) LVOT peak VTI (test 11.5 cm code = 3136463081) AV area by cont VTI 2.7 cm2 (test code = 2634526305) AV area peak jovon (test 2.3 cm2 code = 2692439303) LV V1 mean (test code = 40.20 cm/s 6107549494) Ao max PG (test code = 5.40 mm[Hg] 5999810686) MV Prop V (test code = 54.90 cm/s 9371718947) Ao root annulus (test 3.4 cm code = 8113112458) Ao root diam (test code 3.40 cm = 1667215358) AV peak gradient (test mmHg code = 9382871698) AV valve area (test 2.70 cm2 code = 4355653888) AV mean gradient (test mmHg code = 7757954741) Aortic root (test code 3.4 cm = 8855526098) PW (test code = 1.21 cm 0.6-1.7 2117356720) EF - 2D (test code = 63.50 % 81094798) Interventricular Septum 1.24 cm Diastolic Thickness by 2D (test code = 7235196) BSA (test code = 1.84 m2 4917733361) Radiology Study observation (narrative) (test code = 98475-7) NEYMAR (test code = NEYMAR) ?Left?Ventricle: There is mild concentric hypertrophy. Normal wall motion. Normal systolic function with a visually estimated EF of 55 - 60%. Septal motion is normal. Diastolic dysfunction, cannot be graded due to Afib ?Pulmonic?Valve: Pulmonic valve is normal in structure and function. ?Tricuspid?Valve: Tricuspid valve structure is normal. ?Aortic?Valve: No hemodynamically significant . [facility]A1C[facility]2022-04-30 16:26:24 Test Item Value Reference Range Interpretation Comments HGB A1C (test code = 5.5 % 4.0-5.7 4548-4) NEYMAR (test code = NEYMAR) Reference RangesNormal: <5.7%Prediabetes: 5.7 - 6.4%Diabetes: > 6.5% Lab Interpretation (test Normal code = 00562-5) [facility] (NA, K, CL, CO2, GLUCOSE, BUN, CREATININE, CA)2022-04-30 16:15:38 Test Item Value Reference Range Interpretation Comments NA (test code = 144 mmol/L 135-145 2906274716) K (test code = 4.1 mmol/L 3.5-5.0 3300574923) CL (test code = 113 mmol/L 98-108 H 7558452221) CO2 TOTAL (test code = 28 mmol/L 23-31 8566873926) AGAP (test code = 2-16 4651899842) BUN (test code = 31 mg/dL 7-23 H [id number]) GLUCOSE (test code = 142 mg/dL 70-110 H 2853064532) CREATININE (test code = 0.65 mg/dL 0.60-1.25 3800267290) CALCIUM (test code = 8.4 mg/dL 8.6-10.6 L 7454156914) eGFR (test code = mL/min/1.73m2 8491492807) NEYMAR (test code = NEYMAR) Association of [...] tests). Lab Interpretation Abnormal (test code = 73738-3) [facility] 16:15:38 Test Item Value Reference Range Interpretation Comments MAGNESIUM (test code = 2021239096) 2.1 mg/dL 1.7-2.4 Lab Interpretation (test code = Normal 46603-4) [facility] (for use with Heparin Infusion)2022-04-30 13:43:36 Test Item Value Reference Range Interpretation Comments APTT Patient (test code See_Comment H [Au tomated message] = 3113-2) The system World Reviewer generated this result transmitted ref erence range: 26 - 36 Seconds. The reference range was not used to int erpret this result as normal/abnormal . Lab Interpretation (test Abnormal code = 23878-0) [facility] [id number] 06:04:45 Test Item Value Reference Range Interpretation Comments FREE T3 (test code = 9922034815) 2.48 pg/mL 2.77-5.27 L Lab Interpretation (test code = Abnormal 07003-5) [facility] TempleProthrombin Time / [id number] 05:58:05 Test Item Value Reference Range Interpretation Comments PROTIME PATIENT (test See_Comment H [Auto mated message] code = 5964-2) The system Hooked generated this result transmitted ref erence range: 10.1 - 1 2.6 Seconds. The reference range was not used to int erpret this result as normal/abnormal . INR (test code = 6301-6) Nor mal INR <1.1; Warfarin Therap eutic range 2.0 to 3. 0 or 2.5 to 3.5, dep ending upon the indica tions. Lab Interpretation (test Abnormal code = 00560-4) [facility] 05:58:05 Test Item Value Reference Range Interpretation Comments APTT Patient (test code = See_Comment [ Automated message] 2213-2) The system World Reviewer generated this result transmitted ref erence range: 26 - 36 Seconds. The re ference range was not u sed to interpret this result as normal/abnor mal. Lab Interpretation (test Normal code = 27895-6) [facility]TOTAL CHOLESTEROL, TRIGLYCERIDES, HDL)2022-04-30 05:46:07 Test Item Value Reference Range Interpretation Comments CHOL (test code = 180 mg/dL 120-200 5884816017) HDL (test code = 30 mg/dL >40 L 6143488856) HDLC RATIO (test code = See_Comment H [Au tomated message] 2493162030) The system World Reviewer generated this result transmit adelfo reference range : <=5.0. The refe rence range was not u sed to interpret th is result as normal/abnormal . TRIG (test code = 104 mg/dL 30-170 5834762761) LDL CHOL (test code = 129 mg/dL See_Comment [Auto mated message] 14347-6) The system World Reviewer generated this result transmit adelfo reference range : <=160. The refe rence range was not u sed to interpret th is result as normal/abnormal . VLDL (test code = 21 mg/dL 5-60 5610962211) Lab Interpretation (test Abnormal code = 37840-4) [facility] 05:46:07 Test Item Value Reference Range Interpretation Comments MAGNESIUM (test code = 9698474155) 2.2 mg/dL 1.7-2.4 Lab Interpretation (test code = Normal 27336-4) [facility] TempleCREATINE [id number] 05:46:07 Test Item Value Reference Range Interpretation Comments CK (test code = 5269971801) 47 U/L 33-194 Lab Interpretation (test code = Normal 69827-5) [facility] TempleOSMOLALITY, SERUM OR [id number] 05:45:32 Test Item Value Reference Range Interpretation Comments OSMOLALITY (test code = See_Comment HH [Au tomated message] 2692-2) The system World Reviewer generated this result transmitted ref erence range: 278 - 30 5 mOsm/kg. The reference range was not used to int erpret this result as normal/abnormal . Lab Interpretation (test Abnormal code = 55666-5) [facility] TempleTHYROID STIMULATING [id number] 03:23:38 Test Item Value Reference Range Interpretation Comments TSH (test code = See_Comment L Biotin has been 9968886471) reported to cau se a negative bias, interpret resul ts relative to pat andreznt's use of biotin. [Automated mess age] The system T[employer] (formerly [employer])ic I AM AT generated this result transmitted ref erence range: 0.45 - 4 .70 mIU/L. The refe rence range was not u sed to interpret this result as normal/abnor mal. Lab Interpretation (test Abnormal code = 73430-0) [facility] TempleTroponin [id number] 00:18:11 Test Item Value Reference Interpretation Comments Range TROPONIN I (test 0.010 ng/mL See_Comment [Automated code = 5032352821) message] The system which generated this result [...] biotin. Lab Interpretation Normal (test code = 22093-9) [facility] TempleN-TERMINAL [id number] 00:18:11 Test Item Value Reference Range Interpretation Comments NT-proBNP (test code 1070 pg/mL See_Comment H [Autom ated = 3472830410) message] The system which generated this result transmitted reference range : <=125. The reference range was not used to interpret this result as normal/abnormal . NEYMAR (test code = NEYMAR) Biotin has been reported to cause a negative bias, interpret results relative to patient's use of biotin. Lab Interpretation Abnormal (test code = 76001-1) [facility]MP20[facility]07 00:04:30 Test Item Value Reference Range Interpretation Comments NA (test code = 152 mmol/L 135-145 H 9141161717) K (test code = 3.9 mmol/L 3.5-5.0 8488088126) CL (test code = 119 mmol/L 98-108 H 7394987473) CO2 TOTAL (test code = 21 mmol/L 23-31 L 6418698720) AGAP (test code = 2-16 5825663779) BUN (test code = 37 mg/dL 7-23 H 1405416168) GLUCOSE (test code = 112 mg/dL 70-110 H 1108268090) CREATININE (test code = 1.25 mg/dL 0.60-1.25 6264630557) TOTAL BILI (test code = 1.3 mg/dL 0.1-1.1 H 8161615826) CALCIUM (test code = 9.2 mg/dL 8.6-10.6 9966419734) T PROTEIN (test code = 7.5 g/dL 6.3-8.2 6552314107) ALBUMIN (test code = 4.4 g/dL 3.5-5.0 2883416927) ALK PHOS (test code = 96 U/L 34-122 9113637919) ALTv (test code = 21 U/L 5-50 1742-6) AST(SGOT) (test code = 21 U/L 13-40 5882298901) eGFR (test code = mL/min/1.73m2 2609306266) NEYMAR (test code = NEYMAR) Association of [...] tests). Lab Interpretation Abnormal (test code = 17038-8) [facility] with [id number] 23:40:41 Test Item Value Reference Range Interpretation Comments WBC (test code = See_Comment H [Automated 6690-2) message] The sy stem which generated this result transmitted reference range : 4.20 - 10.70 10*3/?L. The reference range was not used to interpret this result as normal/abnormal . RBC (test code = See_Comment [Automated 789-8) message] The sy stem which generated this [...] RDW-SD (test code = 50.5 fL 38.5-51.6 61056-8) RDW-CV (test code = 14.7 % 12.1-15.4 788-0) PLT (test code = See_Comment [Automated 777-3) message] The sy stem which generated this result transmitted reference range : 150 - 328 10*3/ ?L. The reference r rohan was not used to interpret this result as normal/abnormal . MPV (test code = 11.5 fL 9.8-13.0 22164-6) NRBC/100 WBC (test See_Comment [Automat ed code = 6473082392) message] The system which generated this result transmitted reference range : 0.0 - 10.0 /100 WBCs. The refer ence range was not u sed to interpret th is result as normal/abnormal . NRBC x10^3 (test code <0.01 See_Comment [Auto mated = 4585103524) message] The s ystem which generated this result transmitted reference range : 10*3/?L. The reference range was not used to interpret this result as normal/abnormal . GRAN MAT (NEUT) % 78.4 % (test code = 770-8) IMM GRAN % (test code 0.50 % = 7138635312) LYMPH % (test code = 9.5 % 736-9) MONO % (test code = 11.0 % 5905-5) EOS % (test code = 0.3 % 713-8) BASO % (test code = 0.3 % 706-2) GRAN MAT x10^3(ANC) 9.11 10*3/uL 1.99-6.95 H (test code = 7030235845) IMM GRAN x10^3 (test 0.06 10*3/uL 0.00-0.06 code = 0791479412) LYMPH x10^3 (test code 1.10 10*3/uL 1.09-3.23 = 731-0) MONO x10^3 (test code 1.28 10*3/uL 0.36-1.02 H = 742-7) EOS x10^3 (test code = 0.04 10*3/uL 0.06-0.53 L 711-2) BASO x10^3 (test code 0.04 10*3/uL 0.01-0.09 = 704-7) Lab Interpretation Abnormal (test code = 28938-0) [facility] [id number] 00:50:12 Test Item Value Reference Interpretation Comments Range TROPONIN I (test 0.007 ng/mL See_Comment [Automated code = 6424329940) message] The system which generated this result [...] biotin. Lab Interpretation Normal (test code = 19543-7) [facility]MINAL [id number] 00:50:12 Test Item Value Reference Range Interpretation Comments NT-proBNP (test code 1120 pg/mL See_Comment H [Autom ated = 4321915961) message] The system which generated this result transmitted reference range : <=125. The reference range was not used to interpret this result as normal/abnormal . NEYMAR (test code = NEYMAR) Biotin has been reported to cause a negative bias, interpret results relative to patient's use of biotin. Lab Interpretation Abnormal (test code = 05827-9) [facility] TempleBasi Metabolic Panel (NA, K, CL, CO2, GLUCOSE, BUN, CREATININE, CA)2022-04-29 00:39:11 Test Item Value Reference Range Interpretation Comments NA (test code = 150 mmol/L 135-145 H 5805890885) K (test code = 4.0 mmol/L 3.5-5.0 3494641617) CL (test code = 117 mmol/L 98-108 H 5353143618) CO2 TOTAL (test code = 20 mmol/L 23-31 L 8534688279) AGAP (test code = 2-16 2113402487) BUN (test code = 23 mg/dL 7-23 2020645612) GLUCOSE (test code = 105 mg/dL 70-110 4001959137) CREATININE (test code = 0.89 mg/dL 0.60-1.25 4834956927) CALCIUM (test code = 8.9 mg/dL 8.6-10.6 9875512603) eGFR (test code = mL/min/1.73m2 6041918037) NEYMAR (test code = NEYMAR) Association of [...] tests). Lab Interpretation Abnormal (test code = 95732-8) [facility] TempleHepatic Function Panel (ALB, T.PRO, BILI T, BU/BC, ALT, AST, ALK PHOS)2022-04-29 00:39:11 Test Item Value Reference Range Interpretation Comments TOTAL BILI (test code = 0093419834) 1.3 mg/dL 0.1-1.1 H BILI UNCON (test code = 4839714405) 1.0 mg/dL 0.1-1.1 BILI CONJ (test code = 2700349243) 0.0 mg/dL 0.0-0.3 T PROTEIN (test code = 9056099223) 7.6 g/dL 6.3-8.2 ALBUMIN (test code = 2288326087) 4.2 g/dL 3.5-5.0 ALK PHOS (test code = 8297049524) 108 U/L 34-122 ALTv (test code = 1742-6) 25 U/L 5-50 AST(SGOT) (test code = 6888813971) 27 U/L 13-40 Lab Interpretation (test code = Abnormal 35688-5) [facility] TempleLipase [id number] 00:39:11 Test Item Value Reference Range Interpretation Comments LIPASE (test code = 0589488176) 67 U/L 0-220 Lab Interpretation (test code = Normal 78070-1) [facility] TempleCBC with [id number] 00:26:53 Test Item Value Reference Range Interpretation Comments WBC (test code = See_Comment [Automated 6690-2) message] The sy stem which generated this result transmitted reference range : 4.20 - 10.70 10*3/?L. The reference range was not used to interpret this result as normal/abnormal . RBC (test code = See_Comment [Automated 789-8) message] The sy stem which generated this [...] RDW-SD (test code = 50.3 fL 38.5-51.6 00789-4) RDW-CV (test code = 14.6 % 12.1-15.4 788-0) PLT (test code = See_Comment [Automated 777-3) message] The sy stem which generated this result transmitted reference range : 150 - 328 10*3/ ?L. The reference r rohan was not used to interpret this result as normal/abnormal . MPV (test code = 11.0 fL 9.8-13.0 60821-5) NRBC/100 WBC (test See_Comment [Automat ed code = 4587023398) message] The system which generated this result transmitted reference range : 0.0 - 10.0 /100 WBCs. The refer ence range was not u sed to interpret th is result as normal/abnormal . NRBC x10^3 (test code <0.01 See_Comment [Auto mated = 9063495446) message] The s ystem which generated this result transmitted reference range : 10*3/?L. The reference range was not used to interpret this result as normal/abnormal . GRAN MAT (NEUT) % 65.4 % (test code = 770-8) IMM GRAN % (test code 0.20 % = 7866253316) LYMPH % (test code = 16.9 % 736-9) MONO % (test code = 14.2 % 5905-5) EOS % (test code = 2.6 % 713-8) BASO % (test code = 0.7 % 706-2) GRAN MAT x10^3(ANC) 5.37 10*3/uL 1.99-6.95 (test code = 7965602918) IMM GRAN x10^3 (test <0.03 0.00-0.06 code = 4424350936) LYMPH x10^3 (test code 1.39 10*3/uL 1.09-3.23 = 731-0) MONO x10^3 (test code 1.17 10*3/uL 0.36-1.02 H = 742-7) EOS x10^3 (test code = 0.21 10*3/uL 0.06-0.53 711-2) BASO x10^3 (test code 0.06 10*3/uL 0.01-0.09 = 704-7) Lab Interpretation Abnormal (test code = 87858-1) [facility]"
[2023-04-30 11:45] LABS: Absolute Lymphocytes (CBC) 1.6 K/uL (0.7-4.9); Hematocrit 40.5 % (39.6-49.0); Lymphocytes % 24.5 % (15.3-44.8); MCV 96.5 fL (80-100); MPV 9.2 fL (7.6-11.3)
[2023-04-30 12:06] LABS: Potassium 3.9 mEq/L (3.5-5.1); Troponin High Sensitivity 55.1 pg/mL (<58.9)
--- NOTE | 2023-04-30 12:15 | RAD REPORT ---
EXAM DESCRIPTION: RAD - Chest Single View - 04/30/2023 12:09 pm CLINICAL HISTORY: COPD COMPARISON: Chest Single View dated 04/16/2023 FINDINGS: Lines: None. Lungs: No evidence of edema or pneumonia. Pleural: No significant pleural effusions or pneumothorax. Cardiac: The heart size is within normal limits. Mediastinum: Within normal limits. Bones: No acute fractures. Other: None IMPRESSION: No acute cardiopulmonary disease.
--- NOTE | 2023-04-30 12:23 | RAD REPORT ---
EXAM DESCRIPTION: CT - Head Brain Wo Cont - 04/30/2023 12:14 pm CLINICAL HISTORY: SYNCOPE COMPARISON: Head Brain Wo Cont dated 04/16/2023 TECHNIQUE: All CT scans are performed using dose optimization technique as appropriate and may inclu de automated exposure control or mA/KV adjustment according to patient size. FINDINGS: No intracranial hemorrhage, hydrocephalus or extra-axial fluid collection.No areas of brai n edema or evidence of midline shift. Cavum septum pellucidum. Moderate chronic small vessel ischemic changes. Cerebral atrophy. The paranasal sinuses and mastoids are clear. The calvarium is intact. IMPRESSION: No acute intracranial abnormality.
[2023-04-30 13:05] LABS: Protime INR 1.05
[2023-04-30 13:48] LABS: Specific Gravity 1.022 (1.005-1.030); Urine Bacteria None Seen /HPF (<20); Urine Bilirubin NEGATIVE (Negative); Urine Blood Negative (Negative); Urine Clarity Turbid (Clear); Urine Color Yellow (Yellow); Urine Glucose NEGATIVE (Negative); Urine Mucus Slight /HPF (None Seen); Urine Protein TRACE (Negative); Urine Urobilinogen Normal (Normal); Urine pH 6.5 (5.0-7.0)
--- NOTE | 2023-04-30 13:57 | ER ---
Nurse's Notes [facility] Name: Donald Herron Age: 72 yrs Sex: Male : 1950 Arrival Date: 04/30/2023 Time: 11:32 Bed 19 Private MD: Diagnosis: Syncope Presentation: 04/30 11:33 Chief complaint: EMS states: toned out to [facility] for syncopal episode. Pt was eh3 sitting outside smoking a cigarette with the nurses, turned pale and went unresponsive, did not fall or hit head. EMS reports BP in the 70s systolic on arrival and responsive only to painful stimuli, SpO2 92% on RA. Coronavirus screen: Vaccine status: Patient reports receiving the 2nd dose of the covid vaccine. Ebola Screen: No symptoms or risks identified at this time. Initial Sepsis Screen: Does the patient meet any 2 criteria? No. Patient's initial sepsis screen is negative. Does the patient have a suspected source of infection? No. Patient's initial sepsis screen is negative. Risk Assessment: Do you want to hurt yourself or someone else? Patient reports no desire to harm self or others. Onset of symptoms was April 30, 2023. 11:33 Method Of Arrival: EMS: [facility] eh3 11:33 Acuity: [place] 3 eh3 Triage Assessment: 11:37 General: Appears in no apparent distress. comfortable, Behavior is calm, cooperative, eh3 appropriate for age. Pain: Denies pain. Neuro: Level of Consciousness is awake, alert, obeys commands, Oriented to person, place, Reports a syncopal episode. Cardiovascular: Capillary refill < 3 seconds Patient's skin is warm and dry. Respiratory: Airway is patent Respiratory effort is even, unlabored, Respiratory pattern is regular, symmetrical. GI: Abdomen is round non-distended. Derm: Skin is pink, warm \T\ dry. Musculoskeletal: Circulation, motion, and sensation intact. Historical: - PMHx: 11:37 Atrial fibrillation; TIA; Alzheimer's disease; eh3 - Immunization history:: Adult Immunizations up to date. - Social history:: Smoking status: Patient reports the use of cigarette tobacco products, smokes one pack cigarettes per day. - Family history:: not pertinent. - Hospitalizations: : No recent hospitalization is reported. Screenin:40 [facility] ED Fall Risk Assessment (Adult) History of falling in the last 3 months, ld1 including since admission No falls in past 3 months (0 pts). Abuse screen: Denies threats or abuse. Denies injuries from another. Nutritional screening: No deficits noted. Tuberculosis screening: No symptoms or risk factors identified. Assessment: 11:40 General: Appears in no apparent distress. comfortable, Behavior is calm, cooperative, ld1 appropriate for age. Pain: Denies pain. Neuro: Level of Consciousness is awake, alert, obeys commands, Oriented to person, place, time, situation. Cardiovascular: Capillary refill < 3 seconds Patient's skin is warm and dry. Rhythm is irregular. Respiratory: Airway is patent Respiratory effort is even, unlabored. GI: Abdomen is flat, non-distended. : No signs and/or symptoms were reported regarding the genitourinary system. EENT: No signs and/or symptoms were reported regarding the EENT system. Derm: No signs and/or symptoms reported regarding the dermatologic system. Musculoskeletal: No signs and/or symptoms reported regarding the musculoskeletal system. 14:11 Reassessment: No changes from previously documented assessment. Report given to [place] tai at [facility]. Arranging transport back to facility. 15:23 Reassessment: No changes from previously documented assessment. Patient and/or family ld1 updated on plan of care and expected duration. Pain level reassessed. Patient is alert, oriented x 3, equal unlabored respirations, skin warm/dry/pink. Vital Signs: 11:33 BP 125 / 104; Pulse 66; Resp 20; Temp 98.6(O); Pulse Ox 98% on R/A; eh3 11:40 BP 123 / 67; Pulse 72; Resp 18; Temp 97.7(O); Pulse Ox 100% on R/A; ld1 11:40 Height 5 ft. 10 in. ; Pain 0/10; ld1 13:39 BP 140 / 87; Pulse 67; Resp 18; Pulse Ox 99% on R/A; ld1 15:23 BP 136 / 85; Pulse 71; Resp 18; Pulse Ox 99% on R/A; ld1 11:40 Pain Scale: Adult ld1 ED Course: 11:33 Patient arrived in ED. 3 11:33 Vinayak Suazo MD is Attending Physician. rn 11:36 Triage completed. eh3 11:37 Arm band placed on. eh3 11:39 Izabel Ryan, RN is Primary Nurse. ld1 11:40 Patient has correct armband on for positive identification. Placed in gown. Bed in low ld1 position. Call light in reach. Side rails up X2. monitor technician on. Pulse ox on. NIBP on. Door closed. Noise minimized. Warm blanket given. 11:40 No provider procedures requiring assistance completed. Maintain EMS IV. Dressing ld1 intact. Good blood return noted. Site clean \T\ dry. Gauge \T\ site: 20G RAC. 11:42 EKG done, by ED staff. aw1 12:10 Chest Single View XRAY In Process Unspecified. EDMS 12:15 CT Head Brain wo Cont In Process Unspecified. EDMS 13:37 Urinalysis w/ reflexes Sent. ld1 13:37 Straight cath inserted, using sterile technique, 16 Fr. Returned clear yellow urine. ld1 Patient tolerated well. 13:47 Urinalysis w/ reflexes Sent. ld1 15:23 IV discontinued, intact, bleeding controlled, No redness/swelling at site. ld1 Administered Medications: 11:40 Drug: NS 0.9% IV 500 ml Route: IV; Rate: bolus; Site: right antecubital; ld1 Medication: 11:40 VIS not applicable for this client. ld1 Outcome: 13:57 Discharge ordered by . rn 15:[address] ld1 15:23 Condition: stable 15:23 Discharge instructions given to patient, jail, Instructed on discharge instructions, follow up and referral plans. Demonstrated understanding of instructions, follow-up care. 15:23 Patient left the ED. ld1 Signatures: Dispatcher [employer] EDMS Vinayak Suazo MD MD rn Sims, Lauren, RN RN ld1 Zo Brown RN RN 3 Yuli Seth aw1
--- NOTE | 2023-04-30 13:57 | EDPHYS ---
Physician Documentation [facility] Name: Donald Herron Age: 72 yrs Sex: Male : 1950 Arrival Date: 04/30/2023 Time: 11:32 Bed 19 Private MD: ED Physician Vinayak Suazo HPI: 04/30 11:35 This 72 yrs old Male presents to ER via Unassigned with complaints of Syncope. rn 11:35 The patient has experienced syncope. Onset: The symptoms/episode began/occurred just rn prior to arrival. Duration: This was a single episode. Associated injury: The patient did not suffer any apparent associated injury. Associated signs and symptoms: Pertinent negatives: abdominal pain, chest pain, confusion, headache, palpitations, seizure, shortness of breath, vertigo, vomiting, weakness. Current symptoms: Currently, the patient is not experiencing any symptoms. It is unknown whether or not the patient has had similar symptoms in the past. EMS reports picked up from [facility], was sitting outside smoking, noted to have single syncopal episode. No fall or trauma. Pt not aware he passed out, currently denies any pain, states "feels fine". Pt was ambulatory outside without assistance, was smoking with nurses. Denies nausea/vomiting/diarrhea. No fever. Does not feel ill. . Historical: - PMHx: 11:37 Atrial fibrillation; TIA; Alzheimer's disease; eh3 - Immunization history:: Adult Immunizations up to date. - Social history:: Smoking status: Patient reports the use of cigarette tobacco products, smokes one pack cigarettes per day. - Family history:: not pertinent. - Hospitalizations: : No recent hospitalization is reported. ROS: 11:35 Constitutional: Negative for fever, chills, and weight loss, Eyes: Negative for injury, rn pain, redness, and discharge, Neck: Negative for injury, pain, and swelling, Cardiovascular: Negative for chest pain, palpitations, and edema, Respiratory: Negative for shortness of breath, cough, wheezing, and pleuritic chest pain, Abdomen/GI: Negative for abdominal pain, nausea, vomiting, diarrhea, and constipation, Back: Negative for injury and pain, MS/Extremity: Negative for injury and deformity, Skin: Negative for injury, rash, and discoloration, Neuro: Negative for headache, weakness, numbness, tingling, and seizure. Exam: 11:35 Constitutional: This is a well developed, well nourished patient who is awake, alert, rn and in no acute distress. Smiling and making jokes. Head/Face: Normocephalic, atraumatic. ENT: dry MM Cardiovascular: Regular rate, irregular rhythm. No pulse deficits. Respiratory: No increased work of breathing, no retractions or nasal flaring. Abdomen/GI: Soft, non-tender Skin: Warm, dry MS/ Extremity: Pulses equal, no cyanosis. Neuro: Awake and alert, GCS 15, oriented to person, place, and situation. Cranial nerves II-XII grossly intact. Motor strength 4/5 in all extremities. Sensory grossly intact. Cerebellar exam normal. 11:44 ECG was reviewed by the Attending Physician. rn Vital Signs: 11:33 BP 125 / 104; Pulse 66; Resp 20; Temp 98.6(O); Pulse Ox 98% on R/A; eh3 11:40 BP 123 / 67; Pulse 72; Resp 18; Temp 97.7(O); Pulse Ox 100% on R/A; ld1 11:40 Height 5 ft. 10 in. ; Pain 0/10; ld1 13:39 BP 140 / 87; Pulse 67; Resp 18; Pulse Ox 99% on R/A; ld1 15:23 BP 136 / 85; Pulse 71; Resp 18; Pulse Ox 99% on R/A; ld1 11:40 Pain Scale: Adult ld1 MDM: 11:33 Patient medically screened. rn 13:51 Differential Diagnosis: cardiac arrhythmia, idiopathic syncope, vasovagal episode, rn volume depletion, dehydration. Data reviewed: vital signs, nurses notes, lab test result(s), EKG, radiologic studies, CT scan, and as a result, I will discharge patient. Counseling: I had a detailed discussion with the patient and/or guardian regarding: the historical points, exam findings, and any diagnostic results supporting the discharge/admit diagnosis, lab results, radiology results, the need for outpatient follow up, to return to the emergency department if symptoms worsen or persist or if there are any questions or concerns that arise at home. Response to treatment: the patient's symptoms have resolved after treatment, the patient's condition has returned to base line, the patient is now symptom free, and as a result, I will discharge patient. Special discussion: I discussed with the patient/guardian in detail that at this point there is no indication for admission to the hospital. It is understood, however, that if the symptoms persist or worsen the patient needs to return immediately for re-evaluation. ED course: Pt still reports "feels fine", no acute findings in workup, pt now on hypertensive side since fluids, will dc home with return precautions. 04/30 11:34 Order name: Basic Metabolic Panel; Complete Time: 12:32 rn 04/30 11:34 Order name: CBC with Diff; Complete Time: 12:32 rn 04/30 11:34 Order name: Magnesium; Complete Time: 12:32 rn 04/30 11:34 Order name: Protime (+inr); Complete Time: 13:51 rn 04/30 11:34 Order name: Ptt, Activated; Complete Time: 13:51 rn 04/30 11:34 Order name: Troponin High Sensitivity; Complete Time: 12:32 rn 04/30 11:34 Order name: Urinalysis w/ reflexes; Complete Time: 13:51 rn 04/30 11:34 Order name: BNP; Complete Time: 12:32 rn 04/30 11:34 Order name: CT Head Brain wo Cont; Complete Time: 12:32 rn 04/30 11:34 Order name: Chest Single View XRAY; Complete Time: 12:32 rn 04/30 11:34 Order name: EKG; Complete Time: 11:35 04/30 11:34 Order name: Cardiac monitoring; Complete Time: 11:40 04/30 11:34 Order name: EKG - Nurse/Tech; Complete Time: 11:40 rn 04/30 11:34 Order name: IV Saline Lock; Complete Time: 11:40 04/30 11:34 Order name: Labs collected and sent; Complete Time: 11:40 rn 04/30 11:34 Order name: O2 Per Protocol; Complete Time: 11:40 04/30 11:34 Order name: O2 Sat Monitoring; Complete Time: 11:40 rn EC:44 Rate is 59 beats/min. Rhythm is irregularly irregular. Right axis deviation noted. QRS rn is positive in lead aVF and negative in lead I. QRS interval is normal. QT interval is normal. No Q waves. T waves are Normal. No ST changes noted. Clinical impression: Atrial Fibrillation. Interpreted by me. Reviewed by me. Administered Medications: 11:40 Drug: NS 0.9% IV 500 ml Route: IV; Rate: bolus; Site: right antecubital; ld1 Disposition Summary: 04/30/23 13:57 Discharge Ordered Location: Home rn Problem: new rn Symptoms: have improved rn Condition: Stable rn Diagnosis - Syncope rn Followup: rn - With: Private Physician - When: As needed - Reason: Recheck today's complaints, Re-evaluation by your physician Discharge Instructions: - Discharge Summary Sheet rn - Syncope rn Forms: - Medication Reconciliation Form rn - Thank You Letter rn - Antibiotic international relations teacher - Prescription Opioid Use rn - [email or web address] rn Signatures: Dispatcher [employer] EDVinayak Singer MD MD rn Sims, Lauren RN RN ld1 Zo Brown RN RN 3
[2023-04-30 15:35] VITALS: TEMP 97.7
[2023-04-30 15:36] VITALS: O2SAT 99
[2023-04-30 15:37] VITALS: BP 136/85
--- NOTE | 2023-05-01 16:18 | EKG ---
Test Date: 2023-04-30 Test Time: 11:37:24 [employer]: KATHARINE MEASUREMENT RESULTS: Intervals: Rate: 0 SD: QRSD: 0 QT: 0 QTc: 0 [place]: P: SD: QRS: 0 T: 0 INTERPRETIVE STATEMENTS: No QRS complexes found, no ECG analysis possible Electronically Signed On 05-01-23 16:17:01 CDT by Wiley Cyr
--- NOTE | 2023-05-03 17:19 | EKG ---
Test Date: 2023-04-30 Test Time: 11:39:27 System Manager: KATHARINE MEASUREMENT RESULTS: Intervals: Rate: 59 MT: QRSD: 110 QT: 432 QTc: 427 [place]: P: MT: QRS: 94 T: 75 INTERPRETIVE STATEMENTS: Atrial fibrillation with slow ventricular response Rightward axis Abnormal ECG Compared to ECG 04/30/2023 11:37:24 Right-axis deviation now present Electronically Signed On 05-03-23 17:14:24 CDT by Wiley Cyr
== END 2023-04-30 15:23 | disposition home or self-care (01) ==
LOC: ER 11:32
DX: R55 Syncope and collapse (principal); G30.9 Alzheimer's disease, unspecified; F02.80 Dementia in other diseases classified elsewhere, unspecified severity, without behavioral disturbance, psychotic disturbance, mood disturbance, and anxiety; I48.91 Unspecified atrial fibrillation
CPT/HCPCS: 36415; 51702; 70450; 71045; 80048; 81001; 83735; 83880; 84484; 85025; 85610; 85730; 93005; 99285

== ENCOUNTER 2023-06-02 11:32 | Emergency (ER) | payer OTHER ==
--- OUTSIDE RECORDS SUMMARY | 2023-06-02 11:41 | XMS REPORT | Continuity of Care Document ---
:1950 Author Organization [facility] t Address [address] [place] [address] [place] [id number] Care Team Providers Name Role Phone PCP, PATIENT DOES NOT HAVE A Primary Care Physician Unavailjordyn LAMB, SENDIL K.H. Attending Clinician Unavailable [email or web address] Attending Clinician Unavailable EM MCNEAL Attending Clinician Unavailable Em Mcneal DO Attending Clinician DEE DEE ESQUIVEL Attending Clinician Unavailable Jayna Rizvi RN Attending Clinician Ileana Szymanski Attending Clinician Zainab VILLA, Sendil K.H. Attending Clinician Doctor Unassigned, Zearing Attending Clinician Unavailable BLAIR ERVIN Attending Clinician [...] Clinician Shirley VILLA, Zo Victoria Attending Clinician [phone] Daniel Kunz MD Attending Clinician Dick VILLA, Petar Baig Attending Clinician BERNARDO RODRÍGUEZ Attending Clinician Unavailable [email or web address] Admitting Clinician Unavailable BLAIR ERVIN Admitting Clinician Unavailable DANIEL KUNZ Admitting Clinician Unavailable Daniel Kunz MD Admitting Clinician BERNARDO RODRÍGUEZ Admitting Clinician Unavailable Payers Payer Name Policy Type Policy Number Effective Date Expiration Date S sharri MEDICARE [place]: [id number] 2022 AddSearch 00:00:00 [facility] [id number] 2022 COMMUNITY PLAN-[place] - 00:00:00 STAR+PLUS (MEDICAID REPLACEMENT - HMO) MEDICARE PART A \\T\\ [id number] 2022 B 00:00:00 [facility] STAR PLUS [id number] 2022 00:00:00 MEDICAID - 000 [id number] - [...] 2021-10 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 Medi yadiel to protein to Protein 00:00: [...] Atrial Atrial Disease Active Univers fibrillati fibrillati 04-30 it y of on on 00:00: [place] 00 Medical Branch DEBORAH (acute DEBORAH (acute Disease Active U nivers kidney kidney 04-29 ity of injury) injury) 00:00: [place] [facility] CVA CVA Disease Active Univers (cerebral (cerebral 6-24 ity of infarction infarction [place]: [place] 00 Medical Branch Cerebral Cerebral Disease Active Unive rs infarction infarction 5-30 it y of 00:: [place] [facility] Slurred Slurred Disease Active Univers speech speech 5-29 ity of 00:00: [place] 00 Medical Branch Primary Primary Problem Active [...] Active Univers ALLERGIE Class ity of S [facility] Social History Social Habit Start Date Stop Date Quantity Comments Source Gender identity Universit y of [facility] Sexual orientation Univer sity [facility] History [facility] University o f Alcohol Std Drinks [place] [facility] History SDOK University o f Alcohol Comment [place] [facility] History [facility] University o f Physical Activity [facility] edical MPS Branch History of tobacco Passive smoker Un iversity of use [facility] Alcohol intake 2023-05-08 2023-05-08 1.14 /d University of 00:00:00 00:00:00 [facility] Branch Exposure to 2023-01-08 2023-01-18 Not sure University of SARS-CoV-2 (event) 00:00:00 10:33:00 [facility] Cigarettes smoked 2022-05-19 2022-05-19 Univers ity of current (pack per 00:00:00 00:00:00 [facility] day) - Reported Branch Cigarette 2022-05-19 2022-05-19 University of pack-years 00:00:00 00:00:00 [facility] Tobacco use and 2022-05-19 2022-05-19 Smokeless Universit y of exposure 00:00:00 00:00:00 tobacco non-user [facility] dical Branch History of Social 2022-04-30 2022-04-30 Univers ity of function 00:00:00 00:00:00 [place] [facility] History SDOH 2022-04-30 2022-04-30 5 University o f Alcohol Frequency 00:00:00 00:00:00 [facility] edical Branch History SDOH 2022-04-30 2022-04-30 5 University o f Alcohol Binge 00:00:00 00:00:00 [place] [facility] al [facility] History SDOH Social 2022-04-30 2022-04-30 5 Unive rsity of Connections Phone 00:00:00 00:00:00 [facility] edical Branch History SDOH Social 2022-04-30 2022-04-30 5 Unive rsity of Connections Get 00:00:00 00:00:00 [place] Med ical Together Branch History SDOH Social 2022-04-30 2022-04-30 1 Unive rsity of Connections Baptism 00:00:00 00:00:00 [place] [facility] History SDOH Social 2022-04-30 2022-04-30 1 Unive rsity of Connections 00:00:00 00:00:00 [place] [facility] Membership Branch History SDOH Social 2022-04-30 2022-04-30 1 Unive rsity of Connections 00:00:00 00:00:00 [place] [facility] Meetings Branch History SDOK Social 2022-04-30 2022-04-30 6 Unive rsity of Connections Living 00:00:00 00:00:00 [place] [facility] History SDOH 2022-04-30 2022-04-30 0 University o f Physical Activity 00:00:00 [facility]:00[facility]00 [facility] SD[facility] Stress 2022-04-30 2022-04-30 3 Unive rsity of 00:00:00 00:00:00 [place] [facility] History SDOH 2022-04-30 2022-04-30 1 University o f Financial 00:00:00 00:00:00 [place] [facility] History SDOK Food 2022-04-30 2022-04-30 3 Univers ity of Worry 00:00:00 00:00:00 [place] [facility] History SDOK Food 2022-04-30 2022-04-30 3 Univers ity of Scarcity 00:00:00 00:00:00 [place] [facility] History SDOK 2022-04-30 2022-04-30 1 University o f Transport Med 00:00:00 00:00:00 [place] [facility] al [facility] History [facility] 2022-04-30 2022-04-30 1 University o f Transport Non-Med 00:00:00 00:00:00 [facility] Sex Assigned At [birth year] Universit y of 00:00:00 00:00:00 [facility] Smoking Status Start Date Stop Date Source Heavy Tobacco Smoker Reyes Grayson yadiel Smokes tobacco daily 2022-05-19 00:00:[address] [facility] Ex-smoker 2022-04-30 00:00:00 2022-04-30 00:00:[address] [facility] Medications Ordered Filled Start Stop Current Ordering Indication Dosage Frequency Signature Comments Components Source Medication Medication Date Date Medication? Clinician (SIG) Name Name Depakote Depakote No 1 BID Depakote P rivia 125 mg 125 mg 4-13 125 mg Medical tablet,dillan tablet,dillan 00:00: tablet,del yed release yed release 00 ayed Take 1 Take 1 release tablet tablet Take 1 twice a day twice a day tablet by oral by oral twice a route. route. day by oral route. Depakote Depakote 2022-0 No 1 BID Depakote P rivia 125 mg 125 mg 4-13 125 mg Medical tablet,dillan tablet,dillan 00:00: tablet,del yed release yed release 00 ayed Take 1 Take 1 release tablet tablet Take 1 twice a day twice a day tablet by oral by oral twice a route. route. day by oral route. rivastigmin 2022- Yes [id number] 3mg Take 1 Univers e tartrate 3-27 01 capsule by ity of 3 mg 00:00: mouth [place] capsule 00 every Medical morning Branch and evening. divalproex 2022- Yes [id number] 500mg Take 1 Univers (DEPAKOTE) 3-27 01 tablet by ity of 500 mg EC [place]: [place] bedtime. Medical Branch rivastigmin Yes [id number] 3mg Take 1 Univers e tartrate 3-27 01 capsule by ity of 3 mg 00:00: mouth [place] capsule 00 every Medical morning Branch and evening. divalproex Yes [id number] 500mg Take 1 Univers (DEPAKOTE) 3-27 01 tablet by ity of 500 mg EC 00:00: [place] 00 bedtime. Medical Branch rivastigmin Yes [id number] 3mg Take 1 Univers e tartrate 3-27 01 capsule by ity of 3 mg 00:00: mouth [place] capsule 00 every Medical morning Branch and evening. divalproex 2022-0 Yes [id number] 500mg Take 1 Univers (DEPAKOTE) 3-27 01 tablet by ity of 500 mg EC 00:00: [place] 00 bedtime. Medical Branch rivastigmin Yes [id number] 3mg Take 1 Univers e tartrate 3-27 01 capsule by ity of 3 mg 00:00: mouth [place] capsule 00 every Medical morning Branch and evening. divalproex 2022-0 Yes [id number] 500mg Take 1 Univers (DEPAKOTE) 3-27 01 [...] route. route. oral route. rivastigmin 2021-10 Yes [id number] 1.5mg Take 1 Univers e tartrate 2-02 capsule by ity of 1.5 mg 00:00: mouth [place] capsule 00 every Medical morning Branch and evening. rivastigmin 2021-10 Yes [id number] 1.5mg Take 1 Univers e tartrate 2-02 capsule by ity of 1.5 mg 00:00: mouth [place] capsule 00 every Medical morning Branch and evening. rivastigmin 2021-10 Yes [id number] 1.5mg Take 1 Univers e tartrate 2-02 capsule by ity of 1.5 mg 00:00: mouth [place] capsule 00 every Medical morning Branch and evening. rivastigmin 2021-10 Yes [id number] 1.5mg Take 1 Univers e tartrate 2-02 capsule by ity of 1.5 mg 00:00: mouth [place] capsule 00 every Medical morning Branch and evening. rivastigmin 2021-10- No [id number] 1.5mg Take 1 Univers e tartrate 2-02 - capsule by it y of 1.5 mg 00:00: 00:00 mouth [place] capsule 00 :00 every Medical morning Branch and evening. rivastigmin 2021-10- No [id number] 1.5mg Take 1 Univers e tartrate 2-02 - capsule by it y of 1.5 mg 00:00: 00:00 mouth [place] capsule 00 :00 every Medical morning Branch and evening. rivastigmin 2021-10- No [id number] 1.5mg Take 1 Univers e tartrate 2-02 -27 capsule by it y of 1.5 mg 00:00: 00:00 mouth [place] capsule 00 :00 every Medical morning Branch and evening. carvediloL 2021-10 Yes 6.25mg Take 6.25 Univers 6.25 mg 1-17 mg by ity of tablet 12:49: mouth in [place] [address] the Medical morning Branch and 6.25 mg in the evening. Take with meals. carvediloL 2021-10 Yes 6.25mg Take 6.25 Univers 6.25 mg 1-17 mg by ity of tablet 12:49: mouth in [address] Medical morning Branch and 6.25 mg in the evening. Take with meals. carvediloL 2021-10 Yes 6.25mg Take 6.25 Univers 6.25 mg 1-17 mg by ity of tablet 12:49: mouth in [address] Medical morning Branch and 6.25 mg in the evening. Take with meals. carvediloL 2021-10 Yes 6.25mg Take 6.25 Univers 6.25 mg 1-17 mg by ity of tablet 12:49: mouth in [address] Medical morning [place] and 6.25 mg in the evening. Take with meals. carvediloL 2021-10 Yes 6.25mg Take 6.25 Univers 6.25 mg 1-17 mg by ity of tablet 12:49: mouth in [address] Medical morning [place] and 6.25 mg in the evening. Take with meals. carvediloL 2021-10 Yes 6.25mg Take 6.25 Univers 6.25 mg 1-17 mg by ity of tablet 12:49: mouth in [address] Medical morning [place] and 6.25 mg in the evening. Take with meals. carvediloL 2021-10 Yes 6.25mg Take 6.25 Univers 6.25 mg 1-17 mg by ity of tablet 12:49: mouth in [address] Medical morning [place] and 6.25 mg in the evening. Take with meals. carvediloL 2021-10 Yes 6.25mg Take 6.25 Univers 6.25 mg 1-17 mg by ity of tablet 12:49: mouth in [address] Medical morning [place] and 6.25 mg in the evening. Take with meals. carvediloL 2021-10 Yes 6.25mg Take 6.25 Univers 6.25 mg 1-17 mg by ity of tablet 12:49: mouth in [place] [address] the Medical morning Branch and 6.25 mg in the evening. Take with meals. carvediloL 2021-10 Yes 6.25mg Take 6.25 Univers 6.25 mg 1-17 mg by ity of tablet 12:49: mouth in [place] [address] the Medical morning Branch and 6.25 mg in the evening. Take with meals. carvediloL 2021-10 Yes 6.25mg Take 6.25 Univers 6.25 mg 1-17 mg by ity of tablet 12:49: mouth in [place] [address] the Medical morning Branch and 6.25 mg in the evening. Take with meals. carvediloL 2021-10 Yes 6.25mg Take 6.25 Univers 6.25 mg 1-17 mg by ity of tablet 12:49: mouth in [place] [address] the Medical morning Branch and 6.25 mg in the evening. Take with meals. carvediloL 2021-10 Yes 6.25mg Take 6.25 Univers 6.25 mg 1-17 mg by ity of tablet 12:49: mouth in [place] [address] the Medical morning Branch and 6.25 mg in the evening. Take with meals. carvediloL 2021-10 Yes 6.25mg Take 6.25 Univers 6.25 mg 0-28 mg by ity of tablet 09:12: mouth in [place] [address] the Medical morning Branch and 6.25 mg in the evening. Take with meals. atorvastati 2021-10 Yes 40mg Take 40 mg Univers n 40 mg 0-28 by mouth ity of tablet 09:12: at [place] [address] bedtime. Medical Branch carvediloL 2021-10 Yes 6.25mg Take 6.25 Univers 6.25 mg 0-28 mg by ity of tablet 09:12: mouth in [place] [address] the Medical morning Branch and 6.25 mg in the evening. Take with meals. atorvastati 2021-10 Yes 40mg Take 40 mg Univers n 40 mg 0-28 by mouth ity of tablet 09:12: at [place] [address] bedtime. Medical Branch carvediloL 2021-10 Yes 6.25mg Take 6.25 Univers 6.25 mg 0-28 mg by ity of tablet 09:12: mouth in [place] [address] the Medical morning Branch and 6.25 mg in the evening. Take with meals. atorvastati 2021-10 Yes 40mg Take 40 mg Univers n 40 mg 0-28 by mouth ity of tablet 09:12: at [place] [address] bedtime. Medical Branch carvediloL 2021-10 Yes 6.25mg Take 6.25 Univers 6.25 mg 0-28 mg by ity of tablet 09:12: mouth in [place] [address] the Medical morning Branch and 6.25 mg in the evening. Take with meals. atorvastati 2021-10 Yes 40mg Take 40 mg Univers n 40 mg 0-28 by mouth ity of tablet 09:12: at [place] [address] bedtime. Medical Branch carvediloL 2021-10 Yes 6.25mg Take 6.25 Univers 6.25 mg 0-28 mg by ity of tablet 09:12: mouth in [place] [address] the Medical morning Branch and 6.25 mg in the evening. Take with meals. atorvastati 2021-10 Yes 40mg Take 40 mg Univers n 40 mg 0-28 by mouth ity of tablet 09:12: at [place] [address] bedtime. Medical Branch carvediloL 2021-10 Yes 6.25mg Take 6.25 Univers 6.25 mg 0-28 mg by ity of tablet 09:12: mouth in [place] [address] the Medical morning Branch and 6.25 mg in the evening. Take with meals. atorvastati 2021-10 Yes 40mg Take 40 mg Univers n 40 mg 0-28 by mouth ity of tablet 09:12: at [place] [address] bedtime. Medical Branch atorvastati 2021-10 Yes 40mg Take 40 mg Univers n 40 mg 0-28 by mouth ity of tablet 09:12: at [place] [address] bedtime. Medical Branch atorvastati 2021-10 Yes 40mg Take 40 mg Univers n 40 mg 0-28 by mouth ity of tablet 09:12: at [place] [address] bedtime. Medical Branch atorvastati 2021-10 Yes 40mg Take 40 mg Univers n 40 mg 0-28 by mouth ity of tablet 09:12: at [place] [address] bedtime. Medical Branch atorvastati 2021-10 Yes 40mg Take 40 mg Univers n 40 mg 0-28 by mouth ity of tablet 09:12: at [place] [address] bedtime. Medical Branch atorvastati 2021-10 Yes 40mg Take 40 mg Univers n 40 mg 0-28 by mouth ity of tablet 09:12: at [place] [address] bedtime. Medical Branch atorvastati 2021-10 Yes 40mg Take 40 mg Univers n 40 mg 0-28 by mouth ity of tablet 09:12: at [place] [address] bedtime. Medical Branch atorvastati 2021-10 Yes 40mg Take 40 mg Univers n 40 mg 0-28 by mouth ity of tablet 09:12: at [place] [address] bedtime. Medical Branch atorvastati 2021-10 Yes 40mg Take 40 mg Univers n 40 mg 0-28 by mouth ity of tablet 09:12: at [place] [address] bedtime. Medical Branch atorvastati 2021-10 Yes 40mg Take 40 mg Univers n 40 mg 0-28 by mouth ity of tablet 09:12: at [place] [address] bedtime. Medical Branch atorvastati 2021-10 Yes 40mg Take 40 mg Univers n 40 mg 0-28 by mouth ity of tablet 09:12: at [place] [address] bedtime. Medical Branch atorvastati 2021-10 Yes 40mg Take 40 mg Univers n 40 mg 0-28 by mouth ity of tablet 09:12: at [place] [address] bedtime. Medical Branch atorvastati 2021-10 Yes 40mg Take 40 mg Univers n 40 mg 0-28 by mouth ity of tablet 09:12: at [place] [address] bedtime. Medical Branch atorvastati 2021-10 Yes 40mg Take 40 mg Univers n 40 mg 0-28 by mouth ity of tablet 09:12: at [place] [address] bedtime. Medical Branch carvediloL Yes 6.25mg Take 6.25 Univers (COREG) 7-26 mg by ity of 6.25 mg 12:55: mouth in [place] tablet 25 the Medical morning Branch and 6.25 mg in the evening. Take with meals. atorvastati Yes 40mg Take 40 mg Univers n 40 mg 7-26 by mouth ity of tablet 12:55: at [place] [address] bedtime. Medical Branch carvediloL Yes 6.25mg Take 6.25 Univers (COREG) 7-26 mg by ity of 6.25 mg 12:55: mouth in [place] tablet 25 the Medical morning Branch and 6.25 mg in the evening. Take with meals. atorvastati 2022-0 Yes 40mg Take 40 mg Univers n 40 mg 7-26 by mouth ity of tablet 12:55: at [place] [address] bedtime. Medical Branch carvediloL Yes 6.25mg Take 6.25 Univers (COREG) 7-26 mg by ity of 6.25 mg 12:55: mouth in [place] tablet 25 the Medical morning Branch and 6.25 mg in the evening. Take with meals. atorvastati 0 Yes 40mg Take 40 mg Univers n 40 mg 7-26 by mouth ity of tablet 12:55: at [place] [address] bedtime. Medical Branch carvediloL Yes 6.25mg Take 6.25 Univers (COREG) 7-26 mg by ity of 6.25 mg 12:55: mouth in [place] tablet 25 the Medical morning Branch and 6.25 mg in the evening. Take with meals. atorvastati 0 Yes 40mg Take 40 mg Univers n 40 mg 7-26 by mouth ity of tablet 12:55: at [place] [address] bedtime. Medical Branch carvediloL Yes 6.25mg Take 6.25 Univers (COREG) 7-26 mg by ity of 6.25 mg 12:55: mouth in [place] tablet 25 the Medical morning Branch and 6.25 mg in the evening. Take with meals. atorvastati 0 Yes 40mg Take 40 mg Univers n 40 mg 7-26 by mouth ity of tablet 12:55: at [place] [address] bedtime. Medical Branch carvediloL Yes 6.25mg Take 6.25 Univers (COREG) 7-26 mg by ity of 6.25 mg 12:55: mouth in [place] tablet 25 the Medical morning Branch and 6.25 mg in the evening. Take with meals. atorvastati 0 Yes 40mg Take 40 mg Univers n 40 mg 7-26 by mouth ity of tablet 12:55: at [place] [address] bedtime. Medical Branch carvediloL 0 Yes 6.25mg Take 6.25 Univers (COREG) 7-26 mg by ity of 6.25 mg 12:55: mouth in [place] tablet 25 the Medical morning Branch and 6.25 mg in the evening. Take with meals. atorvastati 2021-0 Yes 40mg Take 40 mg Univers n 40 mg 7-26 by mouth ity of tablet 12:55: at [place] [address] bedtime. Medical Branch carvediloL 0 Yes 6.25mg Take 6.25 Univers (COREG) 7-26 mg by ity of 6.25 mg 12:55: mouth in [place] tablet 25 the Medical morning Branch and 6.25 mg in the evening. Take with meals. atorvastati 0 Yes 40mg Take 40 mg Univers n 40 mg 7-26 by mouth ity of tablet 12:55: at [place] [address] bedtime. Medical Branch carvediloL 0 Yes 6.25mg Take 6.25 Univers (COREG) 7-26 mg by ity of 6.25 mg 12:55: mouth in [place] tablet 25 the Medical morning Branch and 6.25 mg in the evening. Take with meals. atorvastati 0 Yes 40mg Take 40 mg Univers n 40 mg 7-26 by mouth ity of tablet 12:55: at [place] [address] bedtime. Medical Branch carvediloL Yes 6.25mg Take 6.25 Univers (COREG) 7-26 mg by ity of 6.25 mg 12:55: mouth in [place] tablet 25 the Medical morning Branch and 6.25 mg in the evening. Take with meals. atorvastati 0 Yes 40mg Take 40 mg Univers n 40 mg 7-26 by mouth ity of tablet 12:55: at [place] [address] bedtime. Medical Branch carvediloL Yes 6.25mg Take 6.25 Univers (COREG) 7-26 mg by ity of 6.25 mg 12:55: mouth in [place] tablet 25 the Medical morning Branch and 6.25 mg in the evening. Take with meals. atorvastati 0 Yes 40mg Take 40 mg Univers n 40 mg 7-26 by mouth ity of tablet 12:55: at [place] [address] bedtime. Medical Branch carvediloL 0 Yes 6.25mg Take 6.25 Univers (COREG) 7-26 mg by ity of 6.25 mg 12:55: mouth in [place] tablet 25 the Medical morning Branch and 6.25 mg in the evening. Take with meals. atorvastati 2021-0 Yes 40mg Take 40 mg Univers n 40 mg 7-26 by mouth ity of tablet 12:55: at [place] [address] bedtime. Medical Branch carvediloL Yes 6.25mg Take 6.25 Univers (COREG) 7-26 mg by ity of 6.25 mg 12:55: mouth in [place] tablet 25 the Medical morning Branch and 6.25 mg in the evening. Take with meals. atorvastati Yes 40mg Take 40 mg Univers n 40 mg 7-26 by mouth ity of tablet 12:55: at [place] [address] bedtime. [facility] Branch NaCl 0.9% 2021- No 1000mL at 999 Uni vers (NS) bolus 05-02-09 mL/hr, ity of infusion 18:15: 19:04 1,000 mL, Jey as 1,000 mL 00 :00 IV Medical Infusion, [place] ONCE, 1 dose, On 05/02/22 at 1315, ARUNA No known No No known Unive rs medications 05-02 medication it y of 15:35: s [address] No known No No known Unive rs medications 05-02 medication it y of 15:35: s [address] ketorolac 2021- No 10mg 10 mg, Unive rs (TORADOL) 05-01 07-08 Oral, ity of tablet 10 15:00: 15:30 ONCE, 1 [place] mg 00 :[place] dose, On Medical Wed05/01/22 Branch at 1000, Routine ketorolac Yes 10mg 10 mg, Univer s (TORADOL) 7-08 Oral, ity of tablet 10 14:56: Q6HPRN, [place] mg 04 Starting Medical on Wed Branch 05/01/22 at 0956, Until Discontinu ed, Routine, Pain (scale 1-3), Pain (scale 4-6) atorvastati Yes 40mg 40 mg, Univ ers n (LIPITOR) 7-08 Oral, QHS, it y of tablet 40 02:00: First dose [place] mg 00 on [place] [facility] 04/30/22 at Branch 2100, Until Discontinu ed, Routine heparin 0 Yes 5000U 5,000 Univers (porcine) 7-08 Units, ity of injection 01:00: [place]cut[place]o [place] 5,000 Units 00 us, Q12H, Med ical First dose Branch on [place] 04/30/22 at 2000, Until Discontinu ed, Routine atorvastati 2021- No [id number] 40mg Take 1 Univers n 40 mg 05-01 tablet by ity of tablet 00:00: 04:59 mouth at [place] 00 :00 bedtime Medical for 14 Branch days. carvediloL 2021- No [id number] 6.25mg Take 1 Univers 6.25 mg 05-01 tablet by ity of tablet 00:00: 04:59 mouth 2 [place] 00 :00 (two) Medical times Branch daily with meals for 14 days. atorvastati 2021- No [id number] 40mg Take 1 Univers n 40 mg 05-01 tablet by ity of tablet 00:00: 04:59 mouth at [place] 00 :00 bedtime Medical for 14 Branch days. carvediloL 2021- No [id number] 6.25mg Take 1 Univers 6.25 mg 05-01 tablet by ity of tablet 00:00: 04:59 mouth 2 [place] 00 :00 (two) Medical times Branch daily with meals for 14 days. atorvastati 2021- No [id number] 40mg Take 1 Univers n 40 mg 05-01 tablet by ity of tablet 00:00: 04:59 mouth at [place] 00 :00 bedtime Medical for 14 Branch days. carvediloL 2021- No [id number] 6.25mg Take 1 Univers 6.25 mg 05-01 tablet by ity of tablet 00:00: 04:59 mouth 2 [place] 00 :00 (two) Medical times Branch daily with meals for 14 days. atorvastati 2021- No [id number] 40mg Take 1 Univers n 40 mg 05-01 tablet by ity of tablet 00:00: 04:59 mouth at [place] 00 :00 bedtime Medical for 14 Branch days. carvediloL 2021- No [id number] 6.25mg Take 1 Univers 6.25 mg 05-01 tablet by ity of tablet 00:00: 04:59 mouth 2 [place] 00 :00 (two) Medical times Branch daily with meals for 14 days. atorvastati 2021- No [id number] 40mg Take 1 Univers n 40 mg 05-01 tablet by ity of tablet 00:00: 04:59 mouth at [place] 00 :00 bedtime Medical for 14 Branch days. carvediloL 2021- No [id number] 6.25mg Take 1 Univers 6.25 mg 05-01-23 tablet by ity of tablet 00:00: 04:59 mouth 2 [place] 00 :00 (two) Medical times Branch daily with meals for 14 days. atorvastati No [id number] 40mg Take 1 Univers n 40 mg 05-01 tablet by ity of tablet 00:00: 04:59 mouth at [place] 00 :00 bedtime Medical for 14 Branch days. carvediloL 2021- No [id number] 6.25mg Take 1 Univers 6.25 mg 05-01 tablet by ity of tablet 00:00: 04:59 mouth 2 [place] 00 :00 (two) Medical times Branch daily with meals for 14 days. naproxen 2021- No [id number] 250mg Take 1 Univers 250 mg 05-01-16 tablet by ity of tablet 00:00: 04:59 mouth 2 [place] 00 :00 (two) Medical times Branch daily as needed for Pain (scale 4-6) for up to 7 days. naproxen 2021- No [id number] 250mg Take 1 Univers 250 mg 05-01-16 tablet by ity of tablet 00:00: 04:59 mouth 2 [place] 00 :00 (two) Medical times Branch daily as needed for Pain (scale 4-6) for up to 7 days. naproxen 2021- No [id number] 250mg Take 1 Univers 250 mg -05 31-16 tablet by ity of tablet 00:00: 04:59 mouth 2 [place] 00 :00 (two) Medical times Branch daily as needed for Pain (scale 4-6) for up to 7 days. naproxen 2021- No [id number] 250mg Take 1 Univers 250 mg 7-05 31-16 tablet by ity of tablet 00:00: 04:59 mouth 2 [place] 00 :00 (two) Medical times [place] daily as needed for Pain (scale 4-6) for up to 7 days. naproxen 2021- No [id number] 250mg Take 1 Univers 250 mg 05-01-16 tablet by ity of tablet 00:00: 04:59 mouth 2 [place] 00 :00 (two) Medical times Branch daily as needed for Pain (scale 4-6) for up to 7 days. D5W IV No 1000mL at 75 Univers infusion 04-30 mL/hr, IV ity o f 1,000 mL 15:15: 14:13 Infusion, Jey as 00 :00 ONCE, 1 Medical dose, On [facility]04/30/22 at 1015, Routine NaCl 0.9% 1000mL at 100 Uni vers (NS) bolus 04-30 mL/hr, ity of infusion 04:15: 12:00 1,000 mL, Jey as 1,000 mL 00 :13 IV Medical Piggyback, Branch CONTINUOUS , Starting on Wed04/29/22 at 2315, Until [place] 04/30/22 at 0700, ARUNA carvediloL Yes 6.25mg 6.25 mg, U nivers (COREG) 7 Oral, BID ity of tablet 6.25 03:30: [place] 00 First dose Medical on Wed [place] 04/29/22 at 2230, Until Discontinu ed, Routine HEPARIN No 60U/kg 3,810 Univer s SODIUM 04-30-07 Units (60 ity of (PORCINE) 03:30: 05:27 Units/kg Jey as 1,000 00 :00 ?63.5 kg), Medical UNIT/ML IV Push, Branch BOLUS ACS ONCE, 1 ORDER SET dose, On [facility] 04/29/22 at 2230, ARUNA heparin 2021- No 12U/kg/ 12 Univer s 25,000 04-30 07-07 h Units/kg/h ity of Units/250 03:18: 14:43 [...] Rang e, Dosing and Testing: &nbs p;FOR [place], [facility], AND [facility] ONLY &nbs p; - aPTT < [...] 04-30 Oral, ity of (TYLENOL) 01:46: Q6HPRN, [place] tablet 650 25 Starting Medic al mg on Wed Branch 04/29/22 at 2046, Until Discontinu ed, Routine, Pain [...] On Branch Wed04/29/22 at 1800, STAT
[facility] : DALTON CHINO aspirin 2021- No 324mg 324 mg, Unive rs chewable 04-29 Oral, ity of tablet 324 22:30: 23:18 ONCE, 1 Jey as mg 00 :00 dose, On Medical Wed04/29/22 Branch at 1730, STAT lisinopril- 2021- No 1{tbl} Take 1 Tab Univers hydrochloro 04-29 by mouth ity of thiazide 20:46: 00:00 daily. [place] (PRINZIDE,Z 48 :00 Medical ESTORETIC) Branch 20-25 mg per tablet amLODIPine 2021- No 5mg Take 5 mg U nivers (NORVASC) 5 04-29 by mouth ity of mg tablet 20:46: 00:00 daily. [place] 48 :00 Medical Branch atorvastati 2021- No 20mg Take 20 mg Univers n (LIPITOR) 04-29 by mouth ity of 20 mg 20:46: 00:00 at [place] tablet 48 :00 bedtime. Medical Branch clopidogrel 2021- No 75mg Take 75 mg Univers (PLAVIX) 75 04-29 by mouth ity of mg tablet 20:46: 00:00 daily. [place] 48 :00 Medical Branch acetaminoph 2021- No [...] (four) Medical times Branch daily. NaCl 0.9% No 1000mL at 999 Uni vers (NS) bolus 04-29 mL/hr, ity of infusion 00:45: 02:00 1,000 mL, Jey as 1,000 mL 00 :00 IV Medical Infusion, Branch ONCE, 1 dose, On Wed04/28/22 at 1945, STAT aspirin 2021- No 325mg 325 mg, Unive rs tablet 325 04-28 Oral, ity of mg 23:45: 00:35 ONCE, 1 [place] 00 :00 dose, On Medical Wed04/28/22 Branch at 1845, STAT diltiazem 2021- No 20mg 20 mg, IV Un natalie (CARDIZEM 04-28 Push, ity of IV) 23:45: 23:37 ONCE, 1 [place] injection 00 :00 dose, On Medica l 20 mg Wed04/28/22 Branch at 1845, STAT
[facility] Rest[facility] medication : BERNARDO RODRÍGUEZ lisinopril- Yes 1{tbl} Take 1 Tab Univers hydrochloro 9-04 by mouth ity of thiazide 15:32: daily. [place] (PRINZIDE,Z 57 Medical ESTORETIC) Branch 20-25 mg per tablet amLODIPine Yes 5mg Take 5 mg Un natalie (NORVASC) 5 9-04 by mouth ity of mg tablet 15:32: daily. [place] [address] Medical Branch atorvastati Yes 20mg Take 20 mg Univers n (LIPITOR) 9-04 by mouth ity of 20 mg 15:32: at [place] tablet 57 bedtime. Medical Branch clopidogrel Yes 75mg Take 75 mg Univers (PLAVIX) 75 9-04 by mouth ity of mg tablet 15:32: daily. [place] [address] Medical Branch acetaminoph Yes 1000mg Take 1,000 Univers en (TYLENOL 9-04 mg by ity of EXTRA 15:32: mouth [place] STRENGTH) 57 every 6 Medical 500 mg (six) Branch tablet hours as needed for Pain. cephALEXin 2014-0 Yes 500mg Take 500 Un natalie (KEFLEX) [...] Unive rsity of PFIZER VACCINE 00:00:00 [facility] SARS-COV-2 COVID-19 2020-12-29 Completed Unive rsity of PFIZER VACCINE 00:00:00 [facility] SARS-COV-2 COVID-19 2020-12-29 Completed Unive rsity of PFIZER VACCINE 00:00:00 [facility] SARS-COV-2 COVID-19 2020-12-29 Completed Unive rsity of PFIZER VACCINE 00:00:00 [facility] SARS-COV-2 COVID-19 2020-12-29 Completed Unive rsity of PFIZER VACCINE 00:00:00 [facility] SARS-COV-2 COVID-19 2020-12-29 Completed Unive rsity of PFIZER VACCINE 00:00:00 [facility] SARS-COV-2 COVID-19 2020-12-29 Completed Unive rsity of PFIZER VACCINE 00:00:00 [facility] SARS-COV-2 COVID-19 2020-12-29 Completed Unive rsity of PFIZER VACCINE 00:00:00 [facility] SARS-COV-2 COVID-19 2020-12-29 Completed Unive rsity of PFIZER VACCINE 00:00:00 [facility] SARS-COV-2 COVID-19 2020-12-29 Completed Unive rsity of PFIZER VACCINE 00:00:00 [facility] SARS-COV-2 COVID-19 2020-12-29 Completed Unive rsity of PFIZER VACCINE 00:00:00 [facility] SARS-COV-2 COVID-19 2020-12-29 Completed Unive rsity of PFIZER VACCINE 00:00:00 [facility] SARS-COV-2 COVID-19 2020-12-29 Completed Unive rsity of PFIZER VACCINE 00:00:00 [facility] SARS-COV-2 COVID-19 2020-12-29 Completed Unive rsity of PFIZER VACCINE 00:00:00 [facility] Branch SARS-COV-2 COVID-19 2020-12-29 Completed Unive rsity of PFIZER VACCINE 00:00:00 [facility] Branch SARS-COV-2 COVID-19 2020-12-29 Completed Unive rsity of PFIZER VACCINE 00:00:00 [facility] Branch SARS-COV-2 COVID-19 2020-12-29 Completed Unive rsity of PFIZER VACCINE 00:00:00 [facility] Branch SARS-COV-2 COVID-19 2020-12-29 Completed Unive rsity of PFIZER VACCINE 00:00:00 [facility] Branch SARS-COV-2 COVID-19 2020-12-29 Completed Unive rsity of PFIZER VACCINE 00:00:00 [facility] Branch SARS-COV-2 COVID-19 2020-12-29 Completed Unive rsity of PFIZER VACCINE 00:00:00 [facility] Branch SARS-COV-2 COVID-19 2020-12-29 Completed Unive rsity of PFIZER VACCINE 00:00:00 [facility] Branch SARS-COV-2 COVID-19 2020-12-29 Completed Unive rsity of PFIZER VACCINE 00:00:00 [facility] Branch SARS-COV-2 COVID-19 2020-12-29 Completed Unive rsity of PFIZER VACCINE 00:00:00 [facility] Branch SARS-COV-2 COVID-19 2020-12-29 Completed Unive rsity of PFIZER VACCINE 00:00:00 [facility] Branch SARS-COV-2 COVID-19 2020-12-29 Completed Unive rsity of PFIZER VACCINE 00:00:00 [facility] Branch SARS-COV-2 COVID-19 2020-12-29 Completed Unive rsity of PFIZER VACCINE 00:00:00 [facility] Branch SARS-COV-2 COVID-19 2020-12-29 Completed Unive rsity of PFIZER VACCINE 00:00:00 [facility] Branch SARS-COV-2 COVID-19 2020-12-29 Completed Unive rsity of PFIZER VACCINE 00:00:00 [facility] Branch SARS-COV-2 COVID-19 2020-12-29 Completed Unive rsity of PFIZER VACCINE 00:00:00 [facility] Branch SARS-COV-2 COVID-19 2020-12-29 Completed Unive rsity of PFIZER VACCINE 00:00:00 [facility] Branch SARS-COV-2 COVID-19 2020-12-29 Completed Unive rsity of PFIZER VACCINE 00:00:00 [facility] Branch SARS-COV-2 COVID-19 2020-12-29 Completed Unive rsity of PFIZER VACCINE 00:00:00 [facility] Branch SARS-COV-2 COVID-19 2020-12-29 Completed Unive rsity of PFIZER VACCINE 00:00:00 [facility] Branch SARS-COV-2 COVID-19 2020-12-29 Completed Unive rsity of PFIZER VACCINE 00:00:00 [facility] Branch SARS-COV-2 COVID-19 2020-12-29 Completed Unive rsity of PFIZER VACCINE 00:00:00 [facility] Branch SARS-COV-2 COVID-19 2020-12-29 Completed Unive rsity of PFIZER VACCINE 00:00:00 [facility] Branch SARS-COV-2 COVID-19 2020-12-29 Completed Unive rsity of PFIZER VACCINE 00:00:00 [facility] Branch SARS-COV-2 COVID-19 2020-12-29 Completed Unive rsity of PFIZER VACCINE 00:00:00 [facility] Branch SARS-COV-2 COVID-19 2020-12-29 Completed Unive rsity of PFIZER VACCINE 00:00:00 [facility] SARS-COV-2 COVID-19 2020-12-29 Completed Unive rsity of PFIZER VACCINE 00:00:00 [facility] Branch SARS-COV-2 COVID-19 2020-12-29 Completed Unive rsity of PFIZER VACCINE 00:00:00 [facility] Branch SARS-COV-2 COVID-19 2020-12-07 Completed Unive rsity of PFIZER VACCINE 00:00:00 [facility] Branch SARS-COV-2 COVID-19 2020-12-07 Completed Unive rsity of PFIZER VACCINE 00:00:00 [facility] SARS-COV-2 COVID-19 2020-12-07 Completed Unive rsity of PFIZER VACCINE 00:00:00 [facility] SARS-COV-2 COVID-19 2020-12-07 Completed Unive rsity of PFIZER VACCINE 00:00:00 [facility] Branch SARS-COV-2 COVID-19 2020-12-07 Completed Unive rsity of PFIZER VACCINE 00:00:00 [facility] Branch SARS-COV-2 COVID-19 2020-12-07 Completed Unive rsity of PFIZER VACCINE 00:00:00 [facility] Branch SARS-COV-2 COVID-19 2020-12-07 Completed Unive rsity of PFIZER VACCINE 00:00:00 [facility] Branch SARS-COV-2 COVID-19 2020-12-07 Completed Unive rsity of PFIZER VACCINE 00:00:00 [facility] SARS-COV-2 COVID-19 2020-12-07 Completed Unive rsity of PFIZER VACCINE 00:00:00 [facility] SARS-COV-2 COVID-19 2020-12-07 Completed Unive rsity of PFIZER VACCINE 00:00:00 [facility] SARS-COV-2 COVID-19 2020-12-07 Completed Unive rsity of PFIZER VACCINE 00:00:00 [facility] Branch SARS-COV-2 COVID-19 2020-12-07 Completed Unive rsity of PFIZER VACCINE 00:00:00 [facility] Branch SARS-COV-2 COVID-19 2020-12-07 Completed Unive rsity of PFIZER VACCINE 00:00:00 [facility] Branch SARS-COV-2 COVID-19 2020-12-07 Completed Unive rsity of PFIZER VACCINE 00:00:00 [facility] SARS-COV-2 COVID-19 2020-12-07 Completed Unive rsity of PFIZER VACCINE 00:00:00 [facility] Branch SARS-COV-2 COVID-19 2020-12-07 Completed Unive rsity of PFIZER VACCINE 00:00:00 [facility] SARS-COV-2 COVID-19 2020-12-07 Completed Unive rsity of PFIZER VACCINE 00:00:00 [facility] SARS-COV-2 COVID-19 2020-12-07 Completed Unive rsity of PFIZER VACCINE 00:00:00 [facility] SARS-COV-2 COVID-19 2020-12-07 Completed Unive rsity of PFIZER VACCINE 00:00:00 [facility] SARS-COV-2 COVID-19 2020-12-07 Completed Unive rsity of PFIZER VACCINE 00:00:00 [facility] SARS-COV-2 COVID-19 2020-12-07 Completed Unive rsity of PFIZER VACCINE 00:00:00 [facility] SARS-COV-2 COVID-19 2020-12-07 Completed Unive rsity of PFIZER VACCINE 00:00:00 [facility] SARS-COV-2 COVID-19 2020-12-07 Completed Unive rsity of PFIZER VACCINE 00:00:00 [facility] SARS-COV-2 COVID-19 2020-12-07 Completed Unive rsity of PFIZER VACCINE 00:00:00 [facility] SARS-COV-2 COVID-19 2020-12-07 Completed Unive rsity of PFIZER VACCINE 00:00:00 [facility] SARS-COV-2 COVID-19 2020-12-07 Completed Unive rsity of PFIZER VACCINE 00:00:00 [facility] Branch SARS-COV-2 COVID-19 2020-12-07 Completed Unive rsity of PFIZER VACCINE 00:00:00 [facility] SARS-COV-2 COVID-19 2020-12-07 Completed Unive rsity of PFIZER VACCINE 00:00:00 [facility] Branch SARS-COV-2 COVID-19 2020-12-07 Completed Unive rsity of PFIZER VACCINE 00:00:00 [facility] Branch SARS-COV-2 COVID-19 2020-12-07 Completed Unive rsity of PFIZER VACCINE 00:00:00 [facility] Branch SARS-COV-2 COVID-19 2020-12-07 Completed Unive rsity of PFIZER VACCINE 00:00:00 [facility] Branch SARS-COV-2 COVID-19 2020-12-07 Completed Unive rsity of PFIZER VACCINE 00:00:00 [facility] Branch SARS-COV-2 COVID-19 2020-12-07 Completed Unive rsity of PFIZER VACCINE 00:00:00 [facility] Branch SARS-COV-2 COVID-19 2020-12-07 Completed Unive rsity of PFIZER VACCINE 00:00:00 [facility] SARS-COV-2 COVID-19 2020-12-07 Completed Unive rsity of PFIZER VACCINE 00:00:00 [facility] SARS-COV-2 COVID-19 2020-12-07 Completed Unive rsity of PFIZER VACCINE 00:00:00 [facility] SARS-COV-2 COVID-19 2020-12-07 Completed Unive rsity of PFIZER VACCINE 00:00:00 [facility] SARS-COV-2 COVID-19 2020-12-07 Completed Unive rsity of PFIZER VACCINE 00:00:00 [facility] SARS-COV-2 COVID-19 2020-12-07 Completed Unive rsity of PFIZER VACCINE 00:00:00 [facility] SARS-COV-2 COVID-19 2020-12-07 Completed Unive rsity of PFIZER VACCINE 00:00:00 [facility] SARS-COV-2 COVID-19 2020-12-07 Completed Unive rsity of PFIZER VACCINE 00:00:00 [facility] Vital Signs Vital Name Observation Time Observation Value Comments Source Systolic blood 2023-05-08 21:34:00 130 mm[Hg] Univer sity of pressure [facility] Diastolic blood 2023-05-08 21:34:00 90 mm[Hg] Unive rsity of pressure [facility] Heart rate 2023-05-08 21:34:00 62 /min [facility] Body temperature 2023-05-08 21:34:00 36.11 Genevieve [facility] [place] [facility] 2023-05-08 21:34:00 28 /min [facility] Body height 2023-05-08 21:34:00 175.3 cm [facility] Body weight 2023-05-08 21:34:00 81.647 kg [facility] BMI 2023-05-08 21:34:00 26.58 kg/m2 [facility] Oxygen saturation in 2023-05-08 21:34:00 98 /min [facility] Arterial blood by [facility] Pulse oximetry Branch BP Diastolic 2023-02-05 00:00:00 61 mm[Hg] [facility] Height 2023-02-05 00:00:00 69 [in_i] [facility] BMI (Body Mass 2023-02-05 00:00:00 25.3 kg/m2 [facility]) BP Systolic 2023-02-05 00:00:00 113 mm[Hg] [facility] Body Weight 2023-02-05 00:00:00 2736 [oz_av] [facility] BP Diastolic 2023-02-02 00:00:00 88 mm[Hg] [facility] Height 2023-02-02 00:00:00 69 [in_i] [facility] BMI (Body Mass 2023-02-02 00:00:00 26.4 kg/m2 [facility] Medical Index) BP Systolic 2023-02-02 00:00:00 136 mm[Hg] [facility] Body Weight 2023-02-02 00:00:00 2856 [oz_av] [facility] BP Diastolic 2023-01-27 00:00:00 79 mm[Hg] [facility] Height 2023-01-27 00:00:00 69 [in_i] [facility] BMI (Body Mass 2023-01-27 00:00:00 26.3 kg/m2 [facility] Medical Index) BP Systolic 2023-01-27 00:00:00 130 mm[Hg] [facility] Body Weight 2023-01-27 00:00:00 2853 [oz_av] [facility] Systolic blood 2023-01-18 16:37:00 158 mm[Hg] Univer sity of pressure [facility] Diastolic blood 2023-01-18 16:37:00 92 mm[Hg] Unive rsity of pressure [facility] Heart rate 2023-01-18 16:37:00 90 /min [facility] Systolic blood 2023-01-18 15:47:00 155 mm[Hg] Univer sity of pressure [facility] Diastolic blood 2023-01-18 15:47:00 109 mm[Hg] Unive rsity of pressure [facility] Heart rate 2023-01-18 15:45:00 103 /min [facility] Body height 2023-01-18 15:45:00 175.3 cm [facility] Body weight 2023-01-18 15:45:00 78.835 kg [facility] BMI 2023-01-18 15:45:00 25.67 kg/m2 [facility] BP Diastolic 2022-12-29 00:00:00 75 mm[Hg] [facility] Height 2022-12-29 00:00:00 69 [in_i] [facility] BMI (Body Mass 2022-12-29 00:00:00 26.3 kg/m2 [facility]) BP Systolic 2022-12-29 00:00:00 138 mm[Hg] [facility] Body Weight 2022-12-29 00:00:00 2853 [oz_av] [facility] BP Diastolic 2022-12-15 00:00:00 78 mm[Hg] [facility] Height 2022-12-15 00:00:00 69 [in_i] [facility] BMI (Body Mass 2022-12-15 00:00:00 25.7 kg/m2 [facility] Index) BP Systolic 2022-12-15 00:00:00 138 mm[Hg] [facility] Body Weight 2022-12-15 00:00:00 2784 [oz_av] [facility] BP Diastolic 2022-11-24 00:00:00 81 mm[Hg] [facility] Height 2022-11-24 00:00:00 69 [in_i] [facility] BMI (Body Mass 2022-11-24 00:00:00 25.7 kg/m2 [facility]) BP Systolic 2022-11-24 00:00:00 139 mm[Hg] [facility] Body Weight 2022-11-24 00:00:00 2784 [oz_av] [facility] BP Diastolic 2022-10-16 00:00:00 88 mm[Hg] [facility] Height 2022-10-16 00:00:00 69 [in_i] [facility] BMI (Body Mass 2022-10-16 00:00:00 25.8 kg/m2 [facility]) BP Systolic 2022-10-16 00:00:00 134 mm[Hg] [facility] Body Weight 2022-10-16 00:00:00 2792 [oz_av] [facility] BP Diastolic 2022-10-09 00:00:00 77 mm[Hg] [facility] Height 2022-10-09 00:00:00 69 [in_i] [facility] BMI (Body Mass 2022-10-09 00:00:00 25.5 kg/m2 [facility] Medical Index) BP Systolic 2022-10-09 00:00:00 138 mm[Hg] [facility] Body Weight 2022-10-09 00:00:00 2758 [oz_av] [facility] BP Diastolic 2022-09-29 00:00:00 82 mm[Hg] [facility] Height 2022-09-29 00:00:00 69 [in_i] [facility] BMI (Body Mass 2022-09-29 00:00:00 24.8 kg/m2 [facility] Medical Index) BP Systolic 2022-09-29 00:00:00 142 mm[Hg] [facility] Body Weight 2022-09-29 00:00:00 2688 [oz_av] [facility] Systolic blood 2022-09-25 21:32:00 150 mm[Hg] Univer sity of pressure [facility] Diastolic blood 2022-09-25 21:32:00 92 mm[Hg] Unive rsity of pressure [facility] Body height 2022-09-25 15:49:00 175.3 cm [facility] Body Weight 2022-09-22 00:00:00 2688 [oz_av] [facility] BP Diastolic 2022-09-22 00:00:00 77 mm[Hg] [facility] Height 2022-09-22 00:00:00 69 [in_i] [facility] BMI (Body Mass 2022-09-22 00:00:00 24.8 kg/m2 [facility] Medical Index) BP Systolic 2022-09-22 00:00:00 138 mm[Hg] [facility] BP Diastolic 2022-09-15 00:00:00 77 mm[Hg] [facility] BP Systolic 2022-09-15 00:00:00 138 mm[Hg] [facility] Body Weight 2022-09-15 00:00:00 2672 [oz_av] [facility] Systolic blood 2022-09-10 18:52:00 132 mm[Hg] Univer sity of pressure [facility] Diastolic blood 2022-09-10 18:52:00 77 mm[Hg] Unive rsity of pressure [facility] Heart rate 2022-09-10 18:46:00 75 /min Universi ty of [facility] Respiratory rate 2022-09-10 18:46:00 20 /min Univ ersity of [facility] Body height 2022-09-10 18:46:00 175.3 cm Universi ty of [facility] Body weight 2022-09-10 18:46:00 78.835 kg Universi ty of [facility] BMI 2022-09-10 18:46:00 25.67 kg/m2 Universi ty of [facility] Oxygen saturation in 2022-09-10 18:46:00 97 /min [facility] Arterial blood by [facility] Pulse oximetry Branch BP Diastolic 2022-09-08 00:00:00 79 mm[Hg] [facility] Height 2022-09-08 00:00:00 69 [in_i] [facility] BMI (Body Mass 2022-09-08 00:00:00 24.7 kg/m2 [facility] Index) BP Systolic 2022-09-08 00:00:00 136 mm[Hg] [facility] Body Weight 2022-09-08 00:00:00 2672 [oz_av] [facility] Systolic blood 2022-08-21 14:30:00 162 mm[Hg] Univer sity of pressure [facility] Diastolic blood 2022-08-21 14:30:00 106 mm[Hg] Unive rsity of pressure [facility] Heart rate 2022-08-21 14:30:00 65 /min Universi ty of [facility] Body weight 2022-08-21 14:17:00 74.844 kg Universi ty of [facility] BMI 2022-08-21 14:17:00 21.77 kg/m2 Universi ty of [facility] Systolic blood 2022-05-02 20:58:00 170 mm[Hg] Univer sity of pressure [facility] Diastolic blood 2022-05-02 20:58:00 89 mm[Hg] Unive rsity of pressure [facility] Heart rate 2022-05-02 20:58:00 80 /min [facility] [place] [facility] Respiratory rate 2022-05-02 20:58:00 16 /min Univ ersity of [place] [facility] Oxygen saturation in 2022-05-02 20:58:00 98 /min University of Arterial blood by [facility] Pulse oximetry Branch Body temperature 2022-05-02 16:41:00 36.67 Genevieve Univ ersity of [facility] Body weight 2022-05-02 16:41:00 63.957 kg [facility] BMI 2022-05-02 16:41:00 18.61 kg/m2 [facility] [place] [facility] Systolic blood 2022-05-01 13:04:00 163 mm[Hg] Univer sity of pressure [facility] Diastolic blood 2022-05-01 13:04:00 91 mm[Hg] Unive rsity of pressure [facility] Heart rate 2022-05-01 13:04:00 68 /min [facility] Body temperature 2022-05-01 13:04:00 36.72 Genevieve Univ ersity of [facility] Respiratory rate 2022-05-01 13:04:00 18 /min Univ ersity of [place] [facility] Oxygen saturation in 2022-05-01 13:04:00 98 /min University of Arterial blood by [facility] Pulse oximetry Branch Body height 2022-04-30 12:32:00 185.4 cm [facility] Body weight 2022-04-30 12:32:00 64 kg [facility] BMI 2022-04-30 12:32:00 18.62 kg/m2 [facility] Systolic blood 2022-04-29 02:45:00 154 mm[Hg] Univer sity of pressure [facility] Diastolic blood 2022-04-29 02:45:00 125 mm[Hg] Unive rsity of pressure [facility] Heart rate 2022-04-29 02:45:00 69 /min [facility] [place] [facility] Respiratory rate 2022-04-29 02:45:00 20 /min Univ ersity [facility] [place] [facility] Oxygen saturation in 2022-04-29 02:45:00 99 /min [facility] Arterial blood by [facility] Pulse oximetry Branch Body temperature 2022-04-28 23:07:00 36.61 Genevieve [facility] Body weight 2022-04-28 23:07:00 63.504 kg [facility] BMI 2022-04-28 23:07:00 18.47 kg/m2 [facility] Procedures Procedure Date / Time Performing Clinician Source Performed EKG-12 LEAD 2023-05-08 21:46:25 Em Mcneal [facility] AUTHORIZATION TO RELEASE 2022-09-10 06:01:00 Doctor Neda, [facility] PHI TO [facility] [place] [facility] HEAD WO CONTRAST 2022-09-04 18:24:15 Blair Ervin [facility] ASSIGNMENT OF BENEFITS 2022-09-04 18:09:30 Doctor Unasydney, [facility] ASSIGNMENT OF BENEFITS 2022-08-21 13:37:31 Doctor Unassigned, [facility] REFERRAL- 2022-07-21 05:01:00 Doctor Neda, [facility] REQUEST/RESPONSE [facility] REFERRAL- 2022-06-27 05:01:00 Doctor Unahuong, [facility] REQUEST/RESPONSE [facility] EKG-12 LEAD 2022-05-02 20:34:45 Alicia Talley [facility] URINALYSIS 2022-05-02 17:42:00 Alicia Talley [facility] LACTIC ACID WHOLE BLOOD 2022-05-02 17:34:00 Alicia Talley [facility] TROPONIN I 2022-05-02 17:33:00 Alicia Talley [facility] COMP. METABOLIC PANEL 2022-05-02 17:33:00 Alicia Talley [facility] ([id number]) Medical Branch ETHANOL 2022-05-02 17:33:00 Alicia Talley [facility] CBC WITH DIFF 2022-05-02 17:33:00 Alicia [facility] CONSENT/REFUSAL FOR 2022-05-02 16:41:24 Doctor Unassigned [facility] DIAGNOSIS AND TREATMENT [place] PHOSPHORUS 2022-05-01 05:14:00 [place] [facility] MAGNESIUM 2022-05-01 05:14:00 [place] [facility] BASIC METABOLIC PANEL 2022-05-01 05:14:00 [place] [facility] (NA, K, CL, CO2, GLUCOSE, Medica l Branch BUN, CREATININE, CA) TRANSTHORACIC ECHO (TTE) 2022-04-30 19:17:00 Jose Roberto Plaza [facility] COMPLETE [facility] MAGNESIUM 2022-04-30 15:45:00 Jose Roberto Plaza [facility] BASIC METABOLIC PANEL 2022-04-30 15:45:00 Jose Roberto Plaza [facility] (NA, K, CL, CO2, GLUCOSE, Medica l [place] BUN, CREATININE, CA) CT CERVICAL SPINE WO 2022-04-30 15:08:06 [place] [facility] CONTRAST [facility] CT HEAD WO CONTRAST 2022-04-30 15:08:06 [place] [facility] OSMOLALITY URINE 2022-04-30 11:27:00 Jose [address] [facility] URINE DRUG (IMMUNOASSAY) 2022-04-30 11:27:00 [place] [facility] DRUG Medical [facility] SCREEN URINALYSIS 2022-04-30 11:27:00 Jose Roberto Plaza [facility] CREATININE, URINE RANDOM 2022-04-30 11:27:00 Jose Roberto Plaza [facility] SODIUM, URINE RANDOM 2022-04-30 11:27:00 Jose Roberto Plaza [facility] ACTIVATED PARTIAL 2022-04-30 11:26:00 [facility] / INR 2022-04-30 05:27:00 Jose Roberto [facility] ACTIVATED PARTIAL 2022-04-30 05:27:00 [facility] CREATINE KINASE 2022-04-29 23:20:[address] [facility] MAGNESIUM 2022-04-29 23:20:00 [facility] SERUM OR 2022-04-29 23:20:00 Jose Roberto Plaza [facility] PLASMA [facility] TROPONIN I 2022-04-29 23:20:00 [facility] THYROID STIMULATING 2022-04-29 23:20:00 Jose Roberto Plaza [facility] HORMONE [facility] COMP. METABOLIC PANEL 2022-04-29 23:20:00 Osmin Echevarriamadeyanira [facility] ([id number]) Medical Branch LIPID PANEL (29084)(TOTAL 2022-04-29 23:20:00 Jose Roberto Plaza [facility] CHOLESTEROL, [facility] TRIGLYCERIDES, HDL) CBC WITH DIFF 2022-04-29 23:20:00 [facility] GLYCOSYLATED HEMOGLOBIN 2022-04-29 23:20:00 [facility] N-TERMINAL PRO-BNP 2022-04-29 23:20:[address] [facility] FREE T3 2022-04-29 23:20:[address] [facility] COVID-19 (ID NOW RAPID 2022-04-29 23:20:00 Bubba Echevarria [facility] TESTING) Medical Branch LAB ONLY COVID 2022-04-29 23:20:00 Osmin Echevarriamadeyanira [facility] INTERPRETATION [facility] Branch XR CHEST 1 VW 2022-04-29 22:57:[address] [facility] HB ECG ROUTINE & RHYTHM 2022-04-29 21:53:14 Bubba Echevarria [facility] STRIP Medical Branch XR CHEST 2 VW 2022-04-29 00:46:00 Bernardo Rodríguez [facility] EKG-12 LEAD 2022-04-29 00:23:05 Bernardo Rodríguez [facility] Medical [place] LIPASE 2022-04-29 00:08:00 Bernardo Rodríguez [facility] TROPONIN I 2022-04-29 00:08:00 Bernardo Rodríguez [facility] HEPATIC FUNCTION PANEL 2022-04-29 00:08:00 Bernardo Rodríguez [facility] ([id number]) (ALB,T.PRO,BILI Medical Branch T,BU/BC,ALT,AST,ALK PHOS) BASIC METABOLIC PANEL 2022-04-29 00:08:00 Bernardo Rodríguez [facility] (NA, K, CL, CO2, GLUCOSE, Medica l Branch BUN, CREATININE, CA) CBC WITH DIFF 2022-04-29 00:08:00 Bernardo Rodríguez [facility] N-TERMINAL PRO-BNP 2022-04-29 00:08:00 Bernardo Rodríguez [facility] COVID-19 (ID NOW RAPID 2022-04-29 00:08:00 Bernardo Rodríguez [facility] TESTING) Medical [place] Encounters Start End Encounter Admission Attending Care Care Encounter Source Date/Time Date/Time Type Type Clinicians Facility Department ID 2023-06-02 2023-06-02 Outpatient [facility] PRIV [id number] [facility] 00:00:00 00:00:00 d_J [id number] Medica l 2023-05-26 2023-05-26 Outpatient [facility] PRIV PRIV 253 [id number] [facility] 00:00:00 00:00:00 d_J [id number] Medica l 2023-05-26 2023-05-26 Outpatient [facility] PRIV PRIV 253 [id number] [facility] 00:00:00 00:00:00 d_J [id number] Medica l 2023-05-24 2023-05-24 Outpatient [facility]od PRIV PRIV 253 [id number] [facility] 00:00:00 00:00:00 d_J [id number] Medica l 2023-05-20 2023-05-20 Outpatient [facility] PRIV PRIV 253 [id number] [facility] 00:00:00 00:00:00 d_J [id number] Medica l 2023-05-14 2023-05-14 Outpatient [facility] PRIV PRIV 253 [id number] [facility] 00:00:00 00:00:00 d_J [id number] Medica l 2023-05-14 2023-05-14 Outpatient [facility]Tod PRIV PRIV 253 [id number] [facility] 00:00:00 00:00:00 d_J [id number] Medica l 2023-05-11 2023-05-11 Outpatient [facility] PRIV PRIV 253 [id number] [facility] 00:00:00 00:00:00 d_J [id number] Medica l 2023-05-08 2023-05-08 Emergency [facility] [id number] Univers 16:30:00 17:09:[address] [facility] 2023-05-08 2023-05-08 Emergency [facility] 1.2.840.114 [id number] Univers 16:30:00 17:09:00 Em BECK 350.1.13.10 fernando [facility] 4.2.7.2.686 [facility] [id number] [address] 2023-04-30 2023-04-30 Outpatient [facility] PRIV PRIV 253 [id number] [facility] 00:00:00 00:00:00 d_J [id number] Medica l 2023-04-30 2023-04-30 Outpatient [facility] PRIV PRIV 253 [id number] [facility] 00:00:00 00:00:00 d_J [id number] Medica l 2023-04-30 2023-04-30 Outpatient [facility] PRIV PRIV 253 [id number] [facility] 00:00:00 00:00:00 d_J [id number] Medica l 2023-04-23 2023-04-23 Outpatient [facility] PRIV PRIV 253 [id number] [facility] 00:00:00 00:00:00 d_J [id number] Medica l 2023-04-22 2023-04-22 Outpatient [facility] PRIV PRIV 253 [id number] [facility] 00:00:00 00:00:00 d_J [id number] Medica l 2023-04-21 2023-04-21 Outpatient [facility] PRIV PRIV 253 [id number] [facility] 00:00:00 00:00:00 d_J [id number] Medica l 2023-04-20 2023-04-20 Outpatient [facility] PRIV PRIV 253 [id number] [facility] 00:00:00 00:00:00 d_J [id number] Medica l 2023-04-15 2023-04-15 Outpatient [facility]Tod PRIV PRIV 253 [id number] [facility] 00:00:00 00:00:00 d_J [id number] Medica l 2023-04-14 2023-04-14 Outpatient [facility]Tod PRIV PRIV 253 [id number] [facility] 00:00:00 00:00:00 d_J [id number] Medica l 2023-04-13 2023-04-13 Outpatient [facility] PRIV PRIV 253 [id number] [facility] 00:00:00 00:00:00 d_J [id number] Medica l 2023-04-07 2023-04-07 Outpatient [facility] PRIV PRIV 253 [id number] [facility] 00:00:00 00:00:00 d_J [id number] Medica l 2023-03-19 2023-03-19 Outpatient [facility] PRIV PRIV 253 [id number] [facility] 00:00:00 00:00:00 d_J [id number] Medica l 2023-03-10 2023-03-10 Outpatient [facility] PRIV PRIV 253 [id number] [facility] 00:00:00 00:00:00 d_J [id number] Medica l 2023-03-10 2023-03-10 Outpatient [facility] PRIV PRIV 253 [id number] [facility] 00:00:00 00:00:00 d_J [id number] Medica l 2023-03-04 2023-03-04 Outpatient [facility] PRIV PRIV 253 [id number] [facility] 00:00:00 00:00:00 d_J [id number] Medica l 2023-03-02 2023-03-02 Outpatient [facility] PRIV PRIV 253 [id number] [facility] 00:00:00 00:00:00 d_J [id number] Medica l 2023-02-25 2023-02-25 Outpatient [facility] PRIV PRIV 253 [id number] [facility] 00:00:00 00:00:00 d_J [id number] Medica l 2023-02-05 2023-02-05 Randi [facility] [id number] [facility] 00:00:00 00:00:00 LANDON Parsons: Health - Med ical [address] [place] [address] , Ph. 2023-02-02 2023-02-02 Outpatient [facility]Tod PRIV PRIV 253 [id number] [facility] 00:00:00 00:00:00 d_J [id number] Medica l 2023-02-02 2023-02-02 Outpatient [facility]Tod PRIV PRIV 253 [id number] [facility] 00:00:00 00:00:00 d_J [id number] Medica l 2023-02-02 2023-02-02 Outpatient [facility]Tod PRIV PRIV 253 [id number] [facility] 00:00:00 00:00:00 d_J [id number] Medica l 2023-02-02 2023-02-02 Outpatient [facility]Tod PRIV PRIV 253 [id number] [facility] 00:00:00 00:00:00 d_J [id number] Medica l 2023-02-02 2023-02-02 Pino Bee [facility] [id number] [facility] 00:00:00 00:00:00 Juan Pablo [facility] - Med ical MD: [address] [place] [address] , Ph. 2023-01-27 2023-01-27 [facility] [id number] [facility] 00:00:00 00:00:00 LANDON Parsons: Health - Med ical [address] [place] [address] , Ph. 2023-01-20 2023-01-20 Outpatient [facility]Tod PRIV PRIV 253 [id number] [facility] 00:00:00 00:00:00 d_J [id number] Medica l 2023-01-20 2023-01-20 Outpatient [facility]Tod PRIV PRIV 253 [id number] [facility] 00:00:00 00:00:00 d_J [id number] Medica l 2023-01-20 2023-01-20 Outpatient [facility] PRIV PRIV 253 [id number] [facility] 00:00:00 00:00:00 d_J [id number] Medica l 2023-01-18 2023-01-18 Outpatient R ALVIN [facility] [id number] Univers 11:00:00 11:31:14 DEE DEE [facility] 2023-01-18 2023-01-18 Office [facility] 1.2.840.114 [id number] Univers 11:00:00 11:31:14 Visit [facility] 350.1.13.10 [facility] 4.2.7.2.686 Jey as STEPAN?BLEA [id number] [address] OFFICE [facility] 2023-01-12 2023-01-12 Telephone [facility] 1.2.883.183 [id number] Univers 00:00:00 00:00:00 [facility] [employer] 350.1.13.10 it y of [place] 4.2.7.2.686 Jey as STEPAN?BLEA [id number] [address] OFFICE [facility] 2022-12-29 2022-12-29 Randi [facility] 307 [facility] 00:00:00 00:00:00 LANDON Parsons: Health - Med ical [address] [place] [address] , Ph. 2022-12-19 2022-12-19 Outpatient [facility]Tod PRIV PRIV 253 [id number] [facility] 00:00:00 00:00:00 d_J [id number] Medica l 2022-12-19 2022-12-19 Outpatient [facility] PRIV PRIV 253 [id number] [facility] 00:00:00 00:00:00 d_J [id number] Medica l 2022-12-18 2022-12-18 Outpatient [facility] PRIV PRIV 253 [id number] [facility] 00:00:00 00:00:00 d_J [id number] Medica l 2022-12-15 2022-12-15 Randi [facility] 221 [facility] 00:00:00 00:00:00 LANDON Parsons: Health - Med ical [address] [place] [address] , Ph. 2022-12-08 2022-12-08 Outpatient [facility] [id number] Univers 15:30:00 15:30:00 SENDIL [facility] 2022-11-24 2022-11-24 [facility] 131 [facility] 00:00:00 00:00:00 LANDON Parsons: Health - Med ical [address] [place] [address] , Ph. 2022-11-10 2022-11-10 Outpatient [facility] [id number] Univers 15:30:00 15:30:00 SENDIL [facility] 2022-11-02 2022-11-02 Patient Jayna Rizvi 1.2.840.114 [id number] Univers 00:00:00 00:00:00 Outreach E JOSELIN 350.1.13.10 fernando Arana 4.2.7.2.686 Zach ribera [id number] [address] 2022-10-30 2022-10-30 Outpatient [facility]Tod PRIV PRIV [id number] [facility] 00:00:00 00:00:00 d_J [id number] Medica l 2022-10-30 2022-10-30 Outpatient [facility]Tod PRIV PRIV 253 [id number] [facility] 00:00:00 00:00:00 d_J [id number] Medica l 2022-10-30 2022-10-30 Outpatient [facility]Tod PRIV PRIV 253 [id number] [facility] 00:00:00 00:00:00 d_J [id number] Medica l 2022-10-29 2022-10-29 Outpatient [facility]Tod PRIV PRIV 253 [id number] [facility] 00:00:00 00:00:00 d_J [id number] Medica l 2022-10-29 2022-10-29 Outpatient [facility]Tod PRIV PRIV 253 [id number] [facility] 00:00:00 00:00:00 d_J [id number] Medica l 2022-10-16 2022-10-16 Randi [facility] [id number] [facility] 00:00:00 00:00:00 LANDON Parsons: Health - Med ical [address] [place] [address] , Ph. 2022-10-09 2022-10-09 Randi [facility] [id number] [facility] 00:00:00 00:00:00 LANDON Parsons: Health - Med ical [address] [place] [address] , Ph. 2022-10-03 2022-10-03 Outpatient [facility]_Tod PRIV PRIV 253 [id number] [facility] 00:00:00 00:00:00 d_J [id number] Medica l 2022-10-03 2022-10-03 Outpatient [facility]Tod PRIV PRIV 253 [id number] [facility] 00:00:00 00:00:00 d_J [id number] Medica l 2022-10-03 2022-10-03 Outpatient [facility]_Tod PRIV PRIV 253 [id number] [facility] 00:00:00 00:00:00 d_J [id number] Medica l 2022-10-03 2022-10-03 Outpatient [facility]Tod PRIV PRIV 253 [id number] [facility] 00:00:00 00:00:00 d_J [id number] Medica l 2022-10-03 2022-10-03 Outpatient [facility]Tod PRIV PRIV 253 [id number] [facility] 00:00:00 00:00:00 d_J [id number] Medica l 2022-10-03 2022-10-03 Outpatient [facility]Tod PRIV PRIV 253 [id number] [facility] 00:00:00 00:00:00 d_J [id number] Medica l 2022-09-29 2022-09-29 Outpatient [facility]Tod PRIV PRIV 253 [id number] [facility] 00:00:00 00:00:00 d_J [id number] Medica l 2022-09-29 2022-09-29 Outpatient [facility]Tod PRIV PRIV 253 [id number] [facility] 00:00:00 00:00:00 d_J [id number] Medica l 2022-09-29 2022-09-29 Outpatient [facility]Tod PRIV PRIV 253 [id number] [facility] 00:00:00 00:00:00 d_J [id number] Medica l 2022-09-29 2022-09-29 Pino [facility] 00:00:00 00:00:00 Juan Pablo [facility] : [address] [place] [address] , Ph. 2022-09-25 2022-09-25 Outpatient Betty ESQUIVEL [facility] [id number] [facility] 10:30:00 10:47:[address] [facility] 2022-09-25 2022-09-25 Office Alvin [facility] 1.2.840.114 [id number] Univers 10:30:00 10:47:39 Visit Dee Dee [facility] 350.1.13.10 it yoselin [facility] 4.2.7.2.686 Jey as STEPAN?BLEA [id number] Sd n[address] MEDICAL OFFICE [facility] 2022-09-23 2022-09-23 Patient TRIXIE Szymanski 1.2.840.114 [id number] Univers 00:00:00 00:00:00 Outreach Ileana OLIVER[place] 350.1.13.10 [place].2.686 [place] [id number] [place] [address] Branch 2022-09-22 2022-09-22 Randi [facility] [id number] [facility] 00:00:00 00:00:00 LANDON Parsons: Health - Med ical [address] [place] [address] , Ph. 2022-09-21 2022-09-21 Outpatient [facility]_Tod PRIV PRIV [id number] [facility] 00:00:00 00:00:00 d_J [id number] Medica l 2022-09-20 2022-09-20 Outpatient [facility]_Tod PRIV PRIV [id number] [facility] 00:00:00 00:00:00 d_J [id number] Medica l 2022-09-15 2022-09-15 [facility] [id number] [facility] 00:00:00 00:00:00 LANDON Parsons: Health - Med ical [address] [place] [address] , Ph. 2022-09-10 2022-09-10 Outpatient R ZAINAB [facility] [id number] Univers 13:00:00 13:19:[address] [facility] 2022-09-10 2022-09-10 Office Zainab [facility] 1.2.840.114 [id number] Univers 13:00:00 13:19:43 Visit Naa BECK 350.1.13.10 Yes[place] 4.2.7.2.686 Jeya s [place] [id number] Sd dical [facility] 059 [facility] 2022-09-10 2022-09-10 Patient Doctor [facility] 1.2.840.114 [id number] Univers 00:00:00 00:00:00 Secure Msg Unassigned, HEALTH 350.1.13.10 ity of [place] [facility] 4.2.7.2.686 Jey as STEPAN?BLEA [id number] [address] MEDICAL OFFICE [facility] 2022-09-10 2022-09-10 Orders Doctor JOSEFA 1.2.840.114 [id number] Univers 00:00:00 00:00:00 Only Unassigned, AUGUSTUS 350.1.13.10 ity of [place] [facility] 4.2.7.2.686 Jey as [id number] [facility] [address] [place] 2022-09-09 2022-09-09 Outpatient [facility]_Tod PRIV PRIV [id number] [facility] 00:00:00 00:00:00 d_J [id number] Medica l 2022-09-08 2022-09-08 Randi [facility] 115 [facility] 00:00:00 00:00:00 LANDON Parsons: Health - Med ical [address] [place] [address] , Ph. 2022-09-04 2022-09-04 Outpatient R BLAIR ERVIN [facility] [id number] Univers 12:11:00 23:59:00 [facility]22-[facility]-[address] [facility] 1.2.550.957 [id number] Univers 12:11:00 23:59:00 Encounter Blair Barbosa KIRAN 350.1.13.10 [place]y of [place] 4.2.7.2.686 [place] [facility] [id number] [facility] [address] 2022-09-04 2022-09-04 Orders Doctor JOSEFA 1.2.840.114 [id number] Univers 00:00:00 00:00:00 Only Unassigned, AUGUSTUS 350.1.13.10 ity of [place] [facility] 4.2.7.2.686 Jey as [id number] [facility] [address] [place] 2022-08-21 2022-08-21 [employer] [facility], Ang - Db [facility] 1.2.840.1 [id number] Univers 11:30:00 11:45:00 Visit Blair Ervin [facility] 350.1.13. 10 ity of [place] 4.2.7.2.686 Jey as STEPAN?BLEA [id number] [facility] [address] [place] MEDICAL OFFICE [facility] 2022-08-21 2022-08-21 Outpatient R BLAIR ERVIN [facility] [id number] Univers 09:00:00 10:20:[address] [facility] 2022-08-21 2022-08-21 Office Arcadio [facility] 1.2.840.114 [id number] Univers 09:00:00 10:20:54 Visit Blair [facility] 350.1.13.10 ity of [place] 4.2.7.2.686 Jey as STEPAN?BLEA [id number] [address] OFFICE [facility] 2022-08-21 2022-08-21 Orders Doctor RIVERO 1.2.840.114 [id number] Univers 00:00:00 00:00:00 Only Unassigned, AUGUSTUS 350.1.13.[address] [place] [facility] 4.2.7.2.686 Jey as [id number] [address] 2022-08-11 2022-08-11 Patient Stephon TRIXIE 1.2.840.114 [id number] Univers 00:00:00 00:00:00 Outreach Ileana E OLIVERA 350.1.13.10 i ty of [place].7.2.[place] [id number] [facility] [address] [place] 2022-07-30 2022-07-30 Outpatient R CORONA [facility] [id number] Univers 13:00:00 13:00:00 PETROS king o f [facility] 2022-07-23 2022-07-23 Patient Jayna Rizvi TRIXIE 1.2.840.114 [id number] Univers 00:00:00 00:00:00 Outreach E OLIVERA 350.1.13.10 i [place].2.[place] [id number] [address] 2022-07-21 2022-07-21 Orders Doctor JOSEFA 1.2.840.114 [id number] Univers 00:00:00 00:00:00 Only Unassigned, AUGUSTUS 350.1.13.10 ity of [place] [facility] 4.2.7.2.686 Jey as [id number] [address] 2022-06-27 2022-06-27 Orders Doctor JOSEFA 1.2.840.114 [id number] Univers 00:00:00 00:00:00 Only Unassigned, AUGUSTUS 350.1.13.10 ity of [place] [facility] 4.2.7.2.686 Jey as [id number] [address] 2022-06-11 2022-06-11 Patient TRIXIE Szymanski 1.2.840.114 [id number] Univers 00:00:00 00:00:00 Outreach Ileana Cherise OLIVERA 350.1.13.10 i [place]2.7.2.[place] [id number] [address] 2022-06-09 2022-06-09 Patient Jayna Rizvi TRIXIE 1.2.840.114 [id number] Univers 00:00:00 00:00:00 Outreach Cherise OLIVERA 350.1.13.10 i [place].7.2.[place] [id number] [address] 2022-06-04 2022-06-04 Patient TRIXIE Spears 1.2.840.114 [id number] Univers 00:00:00 00:00:00 Outreach Zak OLIVER[place] 350.1.13.10 [place].7.2.686 [place] [id number] [address] 2022-05-29 2022-05-29 Patient TRIXIE Spears 1.2.840.114 [id number] Univers 00:00:00 00:00:00 Outreach Zak OLIVERA 350.1.13.10 [place].7.2.[place] [id number] [address] 2022-05-25 2022-05-25 Patient TRIXIE Spears 1.2.840.114 [id number] Univers 00:00:00 00:00:00 Outreach Zak Curtis [place] 350.1.13.10 [place].2.[place] [id number] [address] 2022-05-22 2022-05-22 Patient Jayna Rizvi 1.2.840.114 [id number] Univers 00:00:00 00:00:00 Outreach E OLIVERA 350.1.13.10 i ty [place]2.7.2.[place] [id number] [address] 2022-05-20 2022-05-20 Patient KIRAN SpearsGay 1.2.840.114 [id number] Univers 00:00:00 00:00:00 Outreach Zak Curtis OLIVER[place] 350.1.13.10 [place].7.2.[place] [id number] [address] 2022-05-19 2022-05-19 Patient Jayna RizviGay 1.2.840.114 [id number] Univers 10:00:00 11:00:00 Outreach E OLIVERA 350.1.13.10 i ty [place]2.7.2.686 [place] [id number] [address] 2022-05-18 2022-05-18 Patient Jayna Rizvi 1.2.840.114 [id number] Univers 00:00:00 00:00:00 Outreach E OLIVERA 350.1.13.10 i ty of [place]2.7.2.686 [place] [id number] [address] 2022-05-15 2022-05-15 Patient Jayna RizviGay 1.2.840.114 [id number] Univers 00:00:00 00:00:00 Outreach E OLIVERA 350.1.13.10 i [place].2.[place] [id number] [address] 2022-05-11 2022-05-11 Patient Darlene Alvarez TRIXIE 1.2.840.114 [id number] Univers 00:00:00 00:00:00 Outreach OLIVER[place] 350.1.13.10 [place] [id number] [facility] [address] 2022-05-08 2022-05-08 Transition TRIXIE George 1.2.840.114 [id number] [facility] 00:00:00 00:00:00 of Care Nidia OLIVER[place] 350.1.13.10 [place] [phone] [facility] [address] 2022-05-06 2022-05-06 Patient Darlene Alvarez 1.2.840.114 [id number] [facility] 00:00:00 00:00:00 Outreach OLIVERA 350.1.13.10 [place] [id number] [facility] [address] 2022-05-04 2022-05-04 Transition TRIXIE George 1.2.840.114 [id number] [facility] 00:00:00 00:00:00 of Care Nidia OLIVERA 350.1.13.10 [place] [phone] [facility] [address] 2022-05-02 2022-05-02 Emergency X MAYANK, [facility] ERT [id number] Univers 11:45:00 16:29:[address] [facility] 2022-05-02 2022-05-02 Emergency Mayank, [place] 1.2.895.721 [id number] Univers 11:45:00 16:29:00 Alicia PEREZ 350.1.13.10 [place] [phone] [facility] [address] 2022-04-29 2022-05-01 Inpatient X SONSTEIN, [facility] ZOEY [id number] Univers 16:35:00 18:23:[address] [facility] 2022-04-29 2022-05-01 Bernardo Martines 1.2. 840.114 [id number] Univers 16:35:00 18:23:00 Encounter Dalton [place] 350.1.13.10 ity [facility] 4.2.7.2 .686 [facility], Daniel Mckeon [phone] Medical Petar Jennings [address] 2022-04-28 2022-04-28 Emergency X ANNE, [facility] ERT [id number] Univers 18:09:00 21:49:00 BERNARDO ity of [facility] 2022-04-28 2022-04-28 Emergency Dellis, [place] 1.2.386.420 [id number] Univers 18:09:00 21:49:00 [facility] 350.1.13.10 it y of [place] 4.2.7.2.686 Zach ribera [phone] [address] Results Test Description Test Time Test Comments Results Result Comments Source OCCULT BLD,FECAL,IMMUNOASSAY [facility] 2022-07-07 13:12:31 Test Item Value Reference Range Interpretation Comme nts OCCULT BLD, FECAL (test code NEGATIVE NEGATIVE UNLESS OTHERWISE INDICATED, ALL = 70342) TESTING PERFORM ED ATCLINICAL PATHOLOGY Graine de Cadeaux [address] [place] [address] [employer] FINISHING WORKER: KODI TRIANA M.D. CLIA NUMBER [id number] CAP ACCREDITATION N O. [id number] TSH, THIRD [id number] 04:48:56 Test Item Value Reference Range Interpretation Comments TSH, THIRD GENERATION (test code 0.698 UIU/ML 0.400-4.100 = 2821) PSA, [id number] 04:48:56 Test Item Value Reference Range Interpretation Comments PSA, TOTAL 2.51 NG/ML See_Comment NOTE: Methodol ogy is Zule[place] (test code = Jayashree Electroch emiluminescence 2606) Immunoassay tra ceable to WHO reference stand angelo 96/760. UNLESS OTHERWIS E INDICATED, ALL TESTING PERFORM ED GT [facility] PATHOLOG[facility] Graine de Cadeaux [address] [place] [id number] LABORATORY DIRE CTOR: KODI TRIANA M.D. CLIA NUMBER [id number] [place]. [id number] [A utomated message] The sy stem which generated this result transmitted ref erence range: <=4.00. The ref erence range was not used to int erpret this result as bijan l/abnormal. LIPID [id number] 04:23:44 Test Item Value Reference Range Interpretation [...] MOREINFORMATION , SEE CLIENT ANNOUNCE MENT AT [email or web address] [email or web address] RATIO LDL/HDL 2.87 RATIO <3.55 (test code = 2238) COMPREHENSIVE METABOLIC [id number] 04:23:44 Test Item Value Reference Range Interpretation Comments GLUCOSE (test code = 89 MG/DL 70-99 2216) BUN (test code = 14 MG/DL 8-23 2207) CREATININE (test 0.85 MG/DL 0.80-1.40 code = 2214) eGFR (2020 CKD-EPI) 93 ML/MIN/1.73 >60 (test code = 17863) CALC BUN/CREAT (test 16 RATIO 6-28 code = 2235) SODIUM (test code = 147 MEQ/L 133-146 H 2230) POTASSIUM (test code 4.2 MEQ/L 3.5-5.4 = 222) CHLORIDE (test code 107 MEQ/L 95-107 = [...] AST (test code = 21 U/L 9-50 8) ALT (test code = 19 U/L 5-50 2218) HEMOGLOBIN [id number] 03:10:09 Test Item Value Reference Range Interpretation Comments HEMOGLOBIN A1c (test code = 02687) 5.5 % 4.2-5.6 CBC W/AUTO DIFF WITH [id number] 01:57:11 Test Item Value Reference Range Interpretation [...] RBCS 0.00 K/UL 0.00-0.11 (test code = 71088) Lactic Acid Whole [id number] 17:48:24 Test Item Value Reference Range Interpretation Comments LACTIC ACID (test code = 1.59 mmol/L 0.50-2.20 0847996058) Lab Interpretation (test code = Normal 86240-6) [facility] METABOLIC PANEL (NA, K, CL, CO2, GLUCOSE, BUN, CREATININE, CA)2022-05-01 06:55:06 Test Item Value Reference Range Interpretation Comments NA (test code = 140 mmol/L 135-145 1826849393) K (test code = 3.9 mmol/L 3.5-5.0 4115281446) CL (test code = 111 mmol/L 98-108 H 8360334390) CO2 TOTAL (test code = 24 mmol/L 23-31 4268524660) AGAP (test code = 2-16 8392830683) BUN (test code = 25 mg/dL 7-23 H 7247570554) GLUCOSE (test code = 86 mg/dL 70-110 1470932726) CREATININE (test code = 0.64 mg/dL 0.60-1.25 6882248735) CALCIUM (test code = 8.0 mg/dL 8.6-10.6 L 4924098641) eGFR (test code = mL/min/1.73m2 3184595806) NEYMAR (test code = NEYMAR) Association of [...] tests). Lab Interpretation Abnormal (test code = 57085-4) [facility] 06:55:06 Test Item Value Reference Range Interpretation Comments MAGNESIUM (test code = 9874985459) 1.9 mg/dL 1.7-2.4 Lab Interpretation (test code = Normal 64286-4) [facility] 06:55:06 Test Item Value Reference Range Interpretation Comments PHOSPHORUS (test code = 8825700564) 2.5 mg/dL 2.5-5.0 Lab Interpretation (test code = Normal 06613-6) [facility] Center[facility]an[facility] (TTE)2022-04-30 20:28:01 Test Item Value Reference Range Interpretation Comments Height (test code = in 5585555482) Weight (test code = lbs 8483340364) Systolic BP (test code mmHg = 0325804294) Diastolic BP (test code mmHg = 8750947015) Heart Rate (test code = bpm 7983185756) LVOT stroke volume 47.40 cm3 (test code = 7094552477) EF(Teich) (test code = 63.50 % 9339712431) LVIDD (test code = 5.20 cm 5935672453) LVIDS (test code = 3.40 cm 9608990196) IVS (test code = 1.24 cm 8110482468) LVPWD (test code = 1.21 cm 4670492884) LVOT diameter (test 2.29 cm code = 8860682017) FS (test code = 35 % 8080720722) MV Peak E Jovon (test 65.6 cm/s code = 1222730147) E wave decelartion time 0.19 s (test code = 9167481472) LVOT peak jovon (test 65.1 cm/s code = 3347665852) LVOT mn grad (test code mmHg = 1586947232) LA size (test code = 3.6 cm 3514227281) Aortic valve mean 73.8 cm/s velocity (test code = 6918687324) Ao peak jovon (test code 115.8 cm/s = 1572603054) Ao VTI (test code = 17.4 cm 1580735292) AV LVOT peak gradient mmHg (test code = 1045893896) LVOT peak VTI (test 11.5 cm code = 2604605293) AV area by cont VTI 2.7 cm2 (test code = 9120989744) AV area peak jovon (test 2.3 cm2 code = 7007419148) LV V1 mean (test code = 40.20 cm/s 5478856531) Ao max PG (test code = 5.40 mm[Hg] 5721408369) MV Prop V (test code = 54.90 cm/s 4653999119) Ao root annulus (test 3.4 cm code = 8096846432) Ao root diam (test code 3.40 cm = 1147870985) AV peak gradient (test mmHg code = 2006897417) AV valve area (test 2.70 cm2 code = 3010048414) AV mean gradient (test mmHg code = 4606362560) Aortic root (test code 3.4 cm = 9352971195) PW (test code = 1.21 cm 0.6-1.6 8347947132) EF - 2D (test code = 63.50 % 34156143) Interventricular Septum 1.24 cm Diastolic Thickness by 2D (test code = 9684895) BSA (test code = 1.84 m2 0409313664) Radiology Study observation (narrative) (test code = 95497-5) NEYMAR (test code = NEYMAR) ?Left?Ventricle: There is mild concentric hypertrophy. Normal wall motion. Normal systolic function with a visually estimated EF of 55 - 60%. Septal motion is normal. Diastolic dysfunction, cannot be graded due to Afib ?Pulmonic?Valve: Pulmonic valve is normal in structure and function. ?Tricuspid?Valve: Tricuspid valve structure is normal. ?Aortic?Valve: No hemodynamically significant . [facility] CenterGLYCOSYLATED HEMOGLOBIN (A1C)2022-04-30 16:26:24 Test Item Value Reference Range Interpretation Comments HGB A1C (test code = 5.5 % 4.0-5.7 4548-4) NEYMAR (test code = NEYMAR) Reference RangesNormal: <5.7%Prediabetes: 5.7 - 6.4%Diabetes: > 6.5% Lab Interpretation (test Normal code = 49962-3) [facility] (NA, K, CL, CO2, GLUCOSE, BUN, CREATININE, CA)2022-04-30 16:15:38 Test Item Value Reference Range Interpretation Comments NA (test code = 144 mmol/L 135-145 9814202532) K (test code = 4.1 mmol/L 3.5-5.0 3979188409) CL (test code = 113 mmol/L 98-108 H 2479849104) CO2 TOTAL (test code = 28 mmol/L 23-31 1978242702) AGAP (test code = 2-16 9630634198) BUN (test code = 31 mg/dL 7-23 H 2151724341) GLUCOSE (test code = 142 mg/dL 70-110 H 9838912936) CREATININE (test code = 0.65 mg/dL 0.60-1.25 3137517024) CALCIUM (test code = 8.4 mg/dL 8.6-10.6 L 1183619228) eGFR (test code = mL/min/1.73m2 3603585635) NEYMAR (test code = NEYMAR) Association of [...] tests). Lab Interpretation Abnormal (test code = 13184-5) [facility]38 Test Item Value Reference Range Interpretation Comments MAGNESIUM (test code = 5113394596) 2.1 mg/dL 1.7-2.4 Lab Interpretation (test code = Normal 35849-0) [facility] CenteraPTT (for use with Heparin Infusion)2022-04-30 13:43:36 Test Item Value Reference Range Interpretation Comments APTT Patient (test code See_Comment H [Au tomated message] = 3173-2) The system [employer] generated this result transmitted ref erence range: 26 - 36 Seconds. The reference range was not used to int erpret this result as normal/abnormal . Lab Interpretation (test Abnormal code = 91494-7) [facility] [id number] 06:04:45 Test Item Value Reference Range Interpretation Comments FREE T3 (test code = 6917376145) 2.48 pg/mL 2.77-5.27 L Lab Interpretation (test code = Abnormal 24015-7) [facility] CenterProthrombin Time / [id number] 05:58:05 Test Item Value Reference Range Interpretation Comments PROTIME PATIENT (test See_Comment H [Auto mated message] code = 5964-2) The system [employer] generated this result transmitted ref erence range: 10.1 - 1 2.6 Seconds. The reference range was not used to int erpret this result as normal/abnormal . INR (test code = 6301-6) Nor mal INR <1.1; Warfarin Therap eutic range 2.0 to 3. 0 or 2.5 to 3.5, dep ending upon the indica tions. Lab Interpretation (test Abnormal code = 25123-2) [facility]eraPTT2022-07-07 05:58:05 Test Item Value Reference Range Interpretation Comments APTT Patient (test code = See_Comment [ Automated message] 3173-2) The system [employer] generated this result transmitted ref erence range: 26 - 36 Seconds. The re ference range was not u sed to interpret this result as normal/abnor mal. Lab Interpretation (test Normal code = 74576-6) [facility] CenterLIPID PANEL (60085)(TOTAL CHOLESTEROL, TRIGLYCERIDES, HDL)2022-04-30 05:46:07 Test Item Value Reference Range Interpretation Comments CHOL (test code = 180 mg/dL 120-200 2562424169) HDL (test code = 30 mg/dL >40 L 0525676461) HDLC RATIO (test code = See_Comment H [Au tomated message] 2213774711) The system [employer] generated this result transmit adelfo reference range : <=5.0. The refe rence range was not u sed to interpret th is result as normal/abnormal . TRIG (test code = 104 mg/dL 30-170 3390350963) LDL CHOL (test code = 129 mg/dL See_Comment [Auto mated message] 47231-2) The system [employer] generated this result transmit adelfo reference range : <=160. The refe rence range was not u sed to interpret th is result as normal/abnormal . VLDL (test code = 21 mg/dL 5-60 6308931632) Lab Interpretation (test Abnormal code = 31402-8) [facility]MAG[facility]UM2022-07-07 05:46:07 Test Item Value Reference Range Interpretation Comments MAGNESIUM (test code = 9373628664) 2.2 mg/dL 1.7-2.4 Lab Interpretation (test code = Normal 94980-5) [facility] CenterCREATINE [id number] 05:46:07 Test Item Value Reference Range Interpretation Comments CK (test code = 5863714408) 47 U/L 33-194 Lab Interpretation (test code = Normal 21774-7) [facility] CenterOSMOLALITY, SERUM OR [id number] 05:45:32 Test Item Value Reference Range Interpretation Comments OSMOLALITY (test code = See_Comment HH [Au tomated message] 2692-2) The system [employer] generated this result transmitted ref erence range: 278 - 30 5 mOsm/kg. The reference range was not used to int erpret this result as normal/abnormal . Lab Interpretation (test Abnormal code = 50429-7) [facility] CenterTHYROID STIMULATING [id number] 03:23:38 Test Item Value Reference Range Interpretation Comments TSH (test code = See_Comment L Biotin has been 6358792595) reported to cau se a negative bias, interpret resul ts relative to pat pina's use of biotin. [Automated mess age] The system [employer] generated this result transmitted ref erence range: 0.45 - 4 .70 mIU/L. The refe rence range was not u sed to interpret this result as normal/abnor mal. Lab Interpretation (test Abnormal code = 99793-6) [facility] CenterTroponin [id number] 00:18:11 Test Item Value Reference Interpretation Comments Range TROPONIN I (test 0.010 ng/mL See_Comment [Automated code = 1973959774) message] The system which generated this result [...] biotin. Lab Interpretation Normal (test code = 63572-8) [facility] CenterN-TERMINAL [id number] 00:18:11 Test Item Value Reference Range Interpretation Comments NT-proBNP (test code 1070 pg/mL See_Comment H [Autom ated = 0937331766) message] The system which generated this result transmitted reference range : <=125. The reference range was not used to interpret this result as normal/abnormal . NEYMAR (test code = NEYMAR) Biotin has been reported to cause a negative bias, interpret results relative to patient's use of biotin. Lab Interpretation Abnormal (test code = 93222-4) [facility] CenterCMP2022-07-07 00:04:30 Test Item Value Reference Range Interpretation Comments NA (test code = 152 mmol/L 135-145 H 5389840107) K (test code = 3.9 mmol/L 3.5-5.0 5083638214) CL (test code = 119 mmol/L 98-108 H 3567048195) CO2 TOTAL (test code = 21 mmol/L 23-31 L 5041213989) AGAP (test code = 2-16 2186236331) BUN (test code = 37 mg/dL 7-23 H 9270346071) GLUCOSE (test code = 112 mg/dL 70-110 H 2400084985) CREATININE (test code = 1.25 mg/dL 0.60-1.25 2862339648) TOTAL BILI (test code = 1.3 mg/dL 0.1-1.1 H 3902292923) CALCIUM (test code = 9.2 mg/dL 8.6-10.6 1647300998) T PROTEIN (test code = 7.5 g/dL 6.3-8.2 4071812857) ALBUMIN (test code = 4.4 g/dL 3.5-5.0 5136323913) ALK PHOS (test code = 96 U/L 34-122 9660445901) ALTv (test code = 21 U/L 5-50 1742-6) AST(SGOT) (test code = 21 U/L 13-40 7070248826) eGFR (test code = mL/min/1.73m2 0024738858) NEYMAR (test code = NEYMAR) Association of [...] tests). Lab Interpretation Abnormal (test code = 66812-2) [facility] with [id number] 23:40:41 Test Item Value Reference Range Interpretation Comments WBC (test code = See_Comment H [Automated 7593-2) message] The sy stem which generated this result transmitted reference range : 4.20 - 10.70 10*3/?L. The reference range was not used to interpret this result as normal/abnormal . RBC (test code = See_Comment [Automated 209-8) message] The sy stem which generated this [...] RDW-SD (test code = 50.5 fL 38.5-51.6 33941-4) RDW-CV (test code = 14.7 % 12.1-15.4 788-0) PLT (test code = See_Comment [Automated 777-3) message] The sy stem which generated this result transmitted reference range : 150 - 328 10*3/ ?L. The reference r rohan was not used to interpret this result as normal/abnormal . MPV (test code = 11.5 fL 9.8-13.0 88975-8) NRBC/100 WBC (test See_Comment [Automat ed code = 3317175525) message] The system which generated this result transmitted reference range : 0.0 - 10.0 /100 WBCs. The refer ence range was not u sed to interpret th is result as normal/abnormal . NRBC x10^3 (test code <0.01 See_Comment [Auto mated = 1702231775) message] The s ystem which generated this result transmitted reference range : 10*3/?L. The reference range was not used to interpret this result as normal/abnormal . GRAN MAT (NEUT) % 78.4 % (test code = 770-8) IMM GRAN % (test code 0.50 % = 0141792904) LYMPH % (test code = 9.5 % 736-9) MONO % (test code = 11.0 % 5905-5) EOS % (test code = 0.3 % 713-8) BASO % (test code = 0.3 % 706-2) GRAN MAT x10^3(ANC) 9.11 10*3/uL 1.99-6.95 H (test code = 1043969428) IMM GRAN x10^3 (test 0.06 10*3/uL 0.00-0.06 code = 2698238481) LYMPH x10^3 (test code 1.10 10*3/uL 1.09-3.23 = 731-0) MONO x10^3 (test code 1.28 10*3/uL 0.36-1.02 H = 742-7) EOS x10^3 (test code = 0.04 10*3/uL 0.06-0.53 L 711-2) BASO x10^3 (test code 0.04 10*3/uL 0.01-0.09 = 704-7) Lab Interpretation Abnormal (test code = 27620-2) [facility] CenterTroponin [id number] 00:50:12 Test Item Value Reference Interpretation Comments Range TROPONIN I (test 0.007 ng/mL See_Comment [Automated code = 9633465054) message] The system which generated this result [...] biotin. Lab Interpretation Normal (test code = 52340-2) [facility] CenterN-TERMINAL [id number] 00:50:12 Test Item Value Reference Range Interpretation Comments NT-proBNP (test code 1120 pg/mL See_Comment H [Autom ated = 9695283274) message] The system which generated this result transmitted reference range : <=125. The reference range was not used to interpret this result as normal/abnormal . NEYMAR (test code = NEYMAR) Biotin has been reported to cause a negative bias, interpret results relative to patient's use of biotin. Lab Interpretation Abnormal (test code = 56204-9) [facility] (NA, K, CL, CO2, GLUCOSE, BUN, CREATININE, CA)2022-04-29 00:39:11 Test Item Value Reference Range Interpretation Comments NA (test code = 150 mmol/L 135-145 H 0160957605) K (test code = 4.0 mmol/L 3.5-5.0 8074093579) CL (test code = 117 mmol/L 98-108 H 9963814269) CO2 TOTAL (test code = 20 mmol/L 23-31 L 2503839988) AGAP (test code = 2-16 7541622257) BUN (test code = 23 mg/dL 7-23 5922620299) GLUCOSE (test code = 105 mg/dL 70-110 2508295415) CREATININE (test code = 0.89 mg/dL 0.60-1.25 2991120446) CALCIUM (test code = 8.9 mg/dL 8.6-10.6 5768161158) eGFR (test code = mL/min/1.73m2 3037603162) NEYMAR (test code = NEYMAR) Association of [...] tests). Lab Interpretation Abnormal (test code = 07620-7) [facility] CenterHepatic Function Panel (ALB, T.PRO, BILI T, BU/BC, ALT, AST, ALK PHOS)2022-04-29 00:39:11 Test Item Value Reference Range Interpretation Comments TOTAL BILI (test code = 2966778912) 1.3 mg/dL 0.1-1.1 H BILI UNCON (test code = 1116046102) 1.0 mg/dL 0.1-1.1 BILI CONJ (test code = 0570160359) 0.0 mg/dL 0.0-0.3 T PROTEIN (test code = 1063283490) 7.6 g/dL 6.3-8.2 ALBUMIN (test code = 1496368357) 4.2 g/dL 3.5-5.0 ALK PHOS (test code = 7981020014) 108 U/L 34-122 ALTv (test code = 1742-6) 25 U/L 5-50 AST(SGOT) (test code = 8814291441) 27 U/L 13-40 Lab Interpretation (test code = Abnormal 42674-3) [facility] CenterLipase [id number] 00:39:11 Test Item Value Reference Range Interpretation Comments LIPASE (test code = 5944530836) 67 U/L 0-220 Lab Interpretation (test code = Normal 65461-0) [facility] CenterCBC with [id number] 00:26:53 Test Item Value Reference Range Interpretation Comments WBC (test code = See_Comment [Automated 4049-2) message] The sy stem which generated this result transmitted reference range : 4.20 - 10.70 10*3/?L. The reference range was not used to interpret this result as normal/abnormal . RBC (test code = See_Comment [Automated 694-8) message] The sy stem which generated this [...] RDW-SD (test code = 50.3 fL 38.5-51.6 53400-1) RDW-CV (test code = 14.6 % 12.1-15.4 788-0) PLT (test code = See_Comment [Automated 777-3) message] The sy stem which generated this result transmitted reference range : 150 - 328 10*3/ ?L. The reference r rohan was not used to interpret this result as normal/abnormal . MPV (test code = 11.0 fL 9.8-13.0 37449-3) NRBC/100 WBC (test See_Comment [Automat ed code = 2522301080) message] The system which generated this result transmitted reference range : 0.0 - 10.0 /100 WBCs. The refer ence range was not u sed to interpret th is result as normal/abnormal . NRBC x10^3 (test code <0.01 See_Comment [Auto mated = 6319062382) message] The s ystem which generated this result transmitted reference range : 10*3/?L. The reference range was not used to interpret this result as normal/abnormal . GRAN MAT (NEUT) % 65.4 % (test code = 770-8) IMM GRAN % (test code 0.20 % = 2315589222) LYMPH % (test code = 16.9 % 736-9) MONO % (test code = 14.2 % 5905-5) EOS % (test code = 2.6 % 713-8) BASO % (test code = 0.7 % 706-2) GRAN MAT x10^3(ANC) 5.37 10*3/uL 1.99-6.95 (test code = 6104554927) IMM GRAN x10^3 (test <0.03 0.00-0.06 code = 4841152133) LYMPH x10^3 (test code 1.39 10*3/uL 1.09-3.23 = 731-0) MONO x10^3 (test code 1.17 10*3/uL 0.36-1.02 H = 742-7) EOS x10^3 (test code = 0.21 10*3/uL 0.06-0.53 711-2) BASO x10^3 (test code 0.06 10*3/uL 0.01-0.09 = 704-7) Lab Interpretation Abnormal (test code = 34954-7) [facility]"
--- NOTE | 2023-06-02 12:46 | RAD REPORT ---
EXAM DESCRIPTION: CT - CTHCSPWOC - 06/02/2023 12:22 pm CLINICAL HISTORY: WEAKNESS COMPARISON: Head Brain Wo Cont dated 04/30/2023 TECHNIQUE: Axial thin cut noncontrast CT images of the head were obtained. Axial thin cut noncontrast CT images of the cervical spine were obtained. Multiplanar reformatted images were generated and reviewed. All CT scans are performed using dose optimization technique as appropriate and may include automated exposure control or mA/KV adjustment according to patient size. FINDINGS: CT HEAD WITHOUT CONTRAST: No acute hemorrhage, hydrocephalus or extra-axial collection is identified.Moderate diffuse parenchym al volume loss and corresponding ventricular prominence particularly anteriorly, stable. Punctate foc us of hypoattenuation in the left basal ganglia stable. Patchy periventricular and deep white matter hypodensities most notably along the frontal lobes, stable. Patent septum pellucidum et vergae. No ar eas of brain edema or midline shift. The right maxillary sinus demonstrates moderate mucosal thickening. Mastoids are clear.The calvarium is intact. CT CERVICAL SPINE WITHOUT CONTRAST: No fracture or subluxation.Straightening of normal cervical lordosis which may be positional or secon laurie to muscle spasm.No prevertebral soft tissues swelling is identified. IMPRESSION: No acute traumatic intracranial or cervical spine findings. Straightening of normal cervical lordosis which may be positional or secondary to muscle spasm. Stable chronic intracranial findings as above.
--- NOTE | 2023-06-02 13:04 | EDPHYS ---
Physician Documentation [facility] Name: Donald Herron Age: 72 yrs Sex: Male : 1950 Arrival Date: 06/02/2023 Time: 11:32 Bed 7 Private MD: ED Physician Mirian Rosenbaum HPI: 06/02 12:44 Patient is a 72-year-old male with history of Alzheimer's disease, A-fib, TIA, cp3 recurrent syncope, GERD. Osteoporosis who presents to the ED by EMS from his nursing facility at [facility]. Per EMS the patient was at his retirement and went out to smoke a cigarette on the patio when he had a syncopal episode and was difficult to arouse for short time interval as reported by retirement staff to EMS. Upon EMS arrival the patient was awake and alert and at his baseline mental status. Upon speaking with patient the patient is without any symptoms and endorses that this happens all the time and he does not know why they keep transporting him the patient does not remember events but says he quite frequently passes out when he goes outside to smoke.. Historical: - Allergies: 11:41 No Known Allergies; ss - PMHx: 11:41 Alzheimer's disease; Atrial fibrillation; TIA; syncope; GERD; Osteoarthritis; Asthma; ss - Immunization history:: Client reports receiving the 2nd dose of the Covid vaccine. - Social history:: Smoking status: Patient reports the use of cigarette tobacco products, smokes one pack cigarettes per day. - Family history:: not pertinent. ROS: 12:44 Constitutional: Negative for fever, chills, and weight loss, Eyes: Negative for injury, cp3 pain, redness, and discharge, ENT: Negative for injury, pain, and discharge, Neck: Negative for injury, pain, and swelling, Cardiovascular: Negative for chest pain, palpitations, and edema, Respiratory: Negative for shortness of breath, cough, wheezing, and pleuritic chest pain, Abdomen/GI: Negative for abdominal pain, nausea, vomiting, diarrhea, and constipation, Back: Negative for injury and pain, : Negative for injury, bleeding, discharge, and swelling, MS/Extremity: Negative for injury and deformity, Skin: Negative for injury, rash, and discoloration. 12:44 Neuro: Positive for syncope. Exam: 12:44 Constitutional: This is a well developed, well nourished patient who is awake, alert, cp3 and in no acute distress. Head/Face: Normocephalic, atraumatic. Eyes: Pupils equal round and reactive to light, extra-ocular motions intact. Lids and lashes normal. Conjunctiva and sclera are non-icteric and not injected. Cornea within normal limits. Periorbital areas with no swelling, redness, or edema. ENT: Nares patent. No nasal discharge, no septal abnormalities noted. Tympanic membranes are normal and external auditory canals are clear. Oropharynx with no redness, swelling, or masses, exudates, or evidence of obstruction, uvula midline. Mucous membranes moist. Neck: Trachea midline, no thyromegaly or masses palpated, and no cervical lymphadenopathy. Supple, full range of motion without nuchal rigidity, or vertebral point tenderness. No Meningismus. Chest/axilla: Normal chest wall appearance and motion. Nontender with no deformity. No lesions are appreciated. Cardiovascular: Regular rate and rhythm with a normal S1 and S2. No gallops, murmurs, or rubs. Normal PMI, no JVD. No pulse deficits. Respiratory: Lungs have equal breath sounds bilaterally, clear to auscultation and percussion. No rales, rhonchi or wheezes noted. No increased work of breathing, no retractions or nasal flaring. Abdomen/GI: Soft, non-tender, with normal bowel sounds. No distension or tympany. No guarding or rebound. No evidence of tenderness throughout. Back: No spinal tenderness. No costovertebral tenderness. Full range of motion. MS/ Extremity: Pulses equal, no cyanosis. Neurovascular intact. Full, normal range of motion. Neuro: Awake and alert, GCS 15, oriented to person, place, time, and situation. Cranial nerves II-XII grossly intact. Motor strength 5/5 in all extremities. Sensory grossly intact. Cerebellar exam normal. Normal gait. Psych: Awake, alert, with orientation to person, place and time. Behavior, mood, and affect are within normal limits. Vital Signs: 11:34 BP 127 / 81; Pulse 95; Resp 17; Temp 97.6(O); Pulse Ox 95% on R/A; Weight 77.11 kg; ss Height 5 ft. 7 in. ; Pain 0/10; 12:45 BP 111 / 73; Pulse 92; Resp 18; Pulse Ox 99% on R/A; mb9 13:00 BP 109 / 70; Pulse 85; Resp 16; Pulse Ox 99% ; ko1 14:25 BP 104 / 64; Pulse 85; Resp 16; Pulse Ox 99% ; ko1 11:34 Body Mass Index 26.63 (77.11 kg, 170.18 cm) ss 11:34 Pain Scale: Adult ss MDM: 11:38 Patient medically screened. cp3 12:44 Differential Diagnosis: cardiac arrhythmia, cerebrovascular accident, drug effect, cp3 idiopathic syncope, seizure, transient ischemic attack, vasovagal episode. Data reviewed: vital signs, nurses notes, EMS record, retirement records. ED course: EKG interpreted by me: Rate 84, atrial fibrillation, no evidence of acute MN, QT 388. 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 06/02 12:01 Order name: Basic Metabolic Panel; Complete Time: 13:42 cp3 06/02 12:01 Order name: CBC with Diff; Complete Time: 13:16 cp3 06/02 12:01 Order name: Hepatic Function; Complete Time: 13:42 cp3 06/02 12:01 Order name: Magnesium; Complete Time: 13:42 cp3 06/02 12:01 Order name: Protime (+inr); Complete Time: 13:29 cp3 06/02 12:01 Order name: Ptt, Activated; Complete Time: 13:29 cp3 06/02 12:01 Order name: Troponin High Sensitivity; Complete Time: 13:42 cp3 06/02 12:01 Order name: Chest Single View XRAY; Complete Time: 14:29 cp3 06/02 12:01 Order name: CT Head C Spine; Complete Time: 12:58 cp3 06/02 12:01 Order name: EKG; Complete Time: 12:02 cp3 06/02 12:01 Order name: Cardiac monitoring; Complete Time: 12:44 cp3 06/02 12:01 Order name: EKG - Nurse/Tech; Complete Time: 12:44 cp3 06/02 12:01 Order name: IV Saline Lock; Complete Time: 13:01 cp3 06/02 12:01 Order name: Labs collected and sent; Complete Time: 13:01 cp3 06/02 12:01 Order name: NPO; Complete Time: 12:44 cp3 06/02 12:01 Order name: O2 Per Protocol; Complete Time: 12:44 cp3 06/02 12:01 Order name: O2 Sat Monitoring; Complete Time: 12:44 cp3 Administered Medications: No medications were administered Point of Care Testing: Blood Glucose: 12:00 Blood Glucose: 127 mg/dL; ko1 Ranges: Critical Glucose Levels:Adult <50 mg/dl or >400 mg/dl <40 mg/dl or >180 mg/dl Disposition Summary: 06/02/23 13:03 Discharge Ordered Location: Home cp3 Problem: chronic cp3 Symptoms: have improved cp3 Condition: Stable cp3 Diagnosis - Heat syncope cp3 - Chronic atrial fibrillation cp3 Followup: cp3 - With: Private Physician - When: As needed - Reason: Re-evaluation by your physician Discharge Instructions: - Discharge Summary Sheet cp3 - Syncope cp3 Forms: - Medication Reconciliation Form cp3 - Thank You Letter cp3 - Antibiotic Education cp3 - Prescription Opioid Use cp3 - Patient Portal Instructions cp3 Signatures: Dispatcher [employer] Mirian Puentes MD MD cp3 Dinora Velazco, RN RN ss
--- NOTE | 2023-06-02 13:04 | ER ---
Nurse's Notes [facility] Name: Donald Herron Age: 72 yrs Sex: Male : 1950 Arrival Date: 06/02/2023 Time: 11:32 Bed 7 Private MD: Diagnosis: Heat syncope;Chronic atrial fibrillation Presentation: 06/02 11:34 Chief complaint: EMS states: Syncopal episode while out on the smoking patio at [facility]. halfway reports initial VS were 78/56 Hr 40 O2 "in the low 80's" Upon EMS arrival, patient was found to be awake and alert, joking with staff members. BGL 162. Pt states that this is the 3rd time he has had an episode like this. Coronavirus screen: Client denies travel out of the [place] in the last 14 days. Ebola Screen: Patient denies exposure to infectious person. Patient denies travel to an Ebola-affected area in the 21 days before illness onset. Initial Sepsis Screen: Does the patient meet any 2 criteria? No. Patient's initial sepsis screen is negative. Does the patient have a suspected source of infection? No. Patient's initial sepsis screen is negative. Risk Assessment: Do you want to hurt yourself or someone else? Patient reports no desire to harm self or others. Onset of symptoms was June 02, 2023. 11:34 Method Of Arrival: Ambulatory 11:34 Acuity: [place] 3 ss Triage Assessment: 14:32 General: Appears in no apparent distress. comfortable, Behavior is calm, cooperative. ko1 Neuro: Reports a syncopal episode. Historical: - Allergies: 11:41 No Known Allergies; ss - PMHx: 11:41 Alzheimer's disease; Atrial fibrillation; TIA; syncope; GERD; Osteoarthritis; Asthma; ss - Immunization history:: Client reports receiving the 2nd dose of the Covid vaccine. - Social history:: Smoking status: Patient reports the use of cigarette tobacco products, smokes one pack cigarettes per day. - Family history:: not pertinent. Screenin:45 [facility] ED Fall Risk Assessment (Adult) History of falling in the last 3 months, ko1 including since admission Yes- single mechanical fall (1 pt) Confusion or Disorientation Yes (5 pts) Intoxicated or Sedated No (0 pts) Impaired Gait No (0 pts) Mobility Assist Device Used No (0 pt) Altered Elimination No (0 pt) Score/Fall Risk Level 3 or more points = High Risk Oriented to surroundings, Maintained a safe environment, Educated pt \\T\\ family on fall prevention, incl call for assistance when getting out of bed, Assessed \\T\\ reinforced patient's understanding of fall precautions, Provided non-skid footwear, Hourly rounding (assess needs \\T\\ fall precautionary measures) done, Used ambulatory aids as needed (educated on \\T\\ assisted with), Used gait belt as appropriate Remained with patient while ambulating. Abuse screen: Denies threats or abuse. Denies injuries from another. Nutritional screening: No deficits noted. Tuberculosis screening: No symptoms or risk factors identified. Assessment: 11:45 Pain: Denies pain. Neuro: Level of Consciousness is awake, alert, obeys commands. ko1 Cardiovascular: Rhythm is atrial fibrillation. Respiratory: No deficits noted. GI: No deficits noted. : No deficits noted. EENT: No deficits noted. Derm: No deficits noted. Musculoskeletal: No deficits noted. Vital Signs: 11:34 BP 127 / 81; Pulse 95; Resp 17; Temp 97.6(O); Pulse Ox 95% on R/A; Weight 77.11 kg; ss Height 5 ft. 7 in. ; Pain 0/10; 12:45 BP 111 / 73; Pulse 92; Resp 18; Pulse Ox 99% on R/A; mb9 13:00 BP 109 / 70; Pulse 85; Resp 16; Pulse Ox 99% ; ko1 14:25 BP 104 / 64; Pulse 85; Resp 16; Pulse Ox 99% ; ko1 11:34 Body Mass Index 26.63 (77.11 kg, 170.18 cm) ss 11:34 Pain Scale: Adult ss ED Course: 11:34 Patient arrived in ED. ss 11:34 Mirian Rosenbaum MD is Attending Physician. cp3 11:41 Triage completed. ss 11:41 Arm band placed on right wrist. ss 11:45 Patient has correct armband on for positive identification. Fall risk band placed. Bed ko1 in low position. Call light in reach. Side rails up X2. Provided Education on: NA. Pulse ox on. NIBP on. Door closed. Noise minimized. Warm blanket given. 12:25 CT Head C Spine In Process Unspecified. EDMS 12:55 Inserted saline lock: 20 gauge in right antecubital area, using aseptic technique. ss Blood collected. 13:19 Monica Denis, RN is Primary Nurse. ko1 13:38 No provider procedures requiring assistance completed. IV discontinued, intact, ko1 bleeding controlled, No redness/swelling at site. Pressure dressing applied. 13:52 Chest Single View XRAY In Process Unspecified. EDMS Administered Medications: No medications were administered Medication: 11:45 VIS not applicable for this client. ko1 Point of Care Testing: Blood Glucose: 12:00 Blood Glucose: 127 mg/dL; ko1 Ranges: Outcome: 13:00 Discharged to intermediate. Report called to [facility] Transfer form completed. ko1 13:00 Condition: improved 13:00 Discharge instructions given to patient, intermediate, Instructed on discharge instructions, follow up and referral plans. Demonstrated understanding of instructions, follow-up care. 13:03 Discharge ordered by . cp3 14:33 Patient left the ED. ko1 Signatures: Dispatcher [employer] EDMirian Ha MD MD cp3 Dinora Velazco, RN RN ss Monica Denis, RN RN ko1 Jayna Wood RN RN mb9
[2023-06-02 13:07] LABS: Absolute Lymphocytes (CBC) 0.9 K/uL (0.7-4.9); Hematocrit 43.3 % (39.6-49.0); Lymphocytes % 9.8 % (15.3-44.8); MCV 97.9 fL (80-100); MPV 8.6 fL (7.6-11.3); Platelets 184 thou/uL (152-406); RBC Red Blood Cell Count 4.43 M/uL (4.33-5.43)
[2023-06-02 13:20] LABS: Protime INR 1.4
[2023-06-02 13:34] LABS: Albumin 2.9 g/dL (3.4-5.0); Bilirubin Direct 0.3 mg/dL (0-0.2); Bilirubin Indirect, Calculated 0.8 mg/dL (0.2-0.8); Bilirubin Total 1.1 mg/dL (0.2-1.0); Magnesium 2.3 mg/dL (1.6-2.4); Potassium 3.7 mEq/L (3.5-5.1); Protein, Total 7.2 g/dL (6.4-8.2); Troponin High Sensitivity 44.1 pg/mL (<58.9)
--- NOTE | 2023-06-02 14:26 | RAD REPORT ---
EXAM DESCRIPTION: RAD - Chest Single View - 06/02/2023 1:50 pm CLINICAL HISTORY: fall COMPARISON: Chest Single View dated 04/30/2023; Chest Single View dated 04/16/2023 FINDINGS: Lines: None. Lungs: No evidence of edema or pneumonia. Pleural: No significant pleural effusions or pneumothorax. Cardiac: The heart size is within normal limits. Mediastinum: Within normal limits. Bones: No acute fractures. Other: None IMPRESSION: No acute cardiopulmonary disease.
[2023-06-02 14:51] VITALS: TEMP 97.6
[2023-06-02 14:52] VITALS: O2SAT 99
[2023-06-02 14:56] VITALS: BP 104/64
== END 2023-06-02 14:33 | disposition home or self-care (01) ==
LOC: ER 11:32
DX: T67.1XXA Heat syncope, initial encounter (principal); I48.19 Other persistent atrial fibrillation; Z79.01 Long term (current) use of anticoagulants; G30.9 Alzheimer's disease, unspecified; F02.80 Dementia in other diseases classified elsewhere, unspecified severity, without behavioral disturbance, psychotic disturbance, mood disturbance, and anxiety; F17.210 Nicotine dependence, cigarettes, uncomplicated; Z86.73 Personal history of transient ischemic attack (TIA), and cerebral infarction without residual deficits
CPT/HCPCS: 36415; 70450; 71045; 72125; 80048; 80076; 83735; 84484; 85025; 85610; 85730; 93005

== ENCOUNTER 2023-10-27 11:58 | Inpatient (IN) | payer OTHER ==
--- OUTSIDE RECORDS SUMMARY | 2023-10-27 12:02 | XMS REPORT | Continuity of Care Document ---
Author Name Unknown Address [address] [place] [address] th[address] Address [address] [place] [address] [place] [address] Care Team Providers Care Supervisor Patching Name Role Phone [email or web address] Attending Clinician Unavailable [email or web address] Admitting Clinician Unavailable Payers Payer Name Policy Type Policy Number Effective Date Expirati on Date Source MEDICARE B-[place]: [employer] [id number] 2022 00:00:00 [facility] PLAN-[place] - STAR+PLUS (MEDICAID REPLACEMENT - HMO) [id number] 2022 00:00:00 MEDICAID - [id number] - PENDING 000 Problems Condition Name Condition Details Condition Category Status Onset Date Resolution Date Last Treatment Date Treating Clinician Comments Source Abscess of skin and/or subcutaneo us tissue Abscess of Skin And/or Subcutaneo us Tissue Problem Active 5-08 00:00: 00 [facility] Vitamin D deficiency Vitamin D Deficiency Problem Active 4-03 00:00: 00 [facility] Nicotine dependence Nicotine Dependence Problem Active 4-03 00:00: 00 [facility] Prediabete s Prediabete s Problem Active 4-03 00:00: 00 [facility] Arthritis Arthritis Problem Active 2-10 00:00: 00 [facility] a penitentiary Lives in a Skilled Nursing Problem Active 2021-10 2-13 00:00: 00 [facility] Hypoalbumi nemia due to protein calorie malnutriti on Hypoalbumi nemia Due to Protein Calorie Malnutriti on Problem Active 2021-10 2-05 00:00: 00 [facility] Secondary immune deficiency disorder Secondary Immune Deficiency Disorder Problem Active 2021-10 1 00:00: 00 [facility] Hypercoagu lability state Hypercoagu lability State Problem Active 2021-10 00:00: 00 [facility] Atrial fibrillati on Atrial Fibrillati on Problem Active 2021-10 00:00: 00 [facility] Peripheral vascular disease Peripheral Vascular Disease Problem Active 2021-10 00:00: 00 [facility] 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, 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, Senile Onset Problem Active [facility] Hypertensi ve heart disease Hypertensi ve Heart Disease Problem Active [facility] Chronic obstructiv e lung disease Chronic Obstructiv e Lung Disease Problem Active [facility] Homeless Homeless Problem Active [facility] Nicotine dependence with current use Nicotine Dependence with Current Use Problem Active [facility] Hyperlipid emia Hyperlipid emia Problem Active [facility] Social History Smoking Status Start Date Stop Date Source Heavy Tobacco Smoker [facility] Medications Ordered Medication Name Filled Medication Name Start Date Stop Date Current Medication? Ordering Clinician Indication Dosage Frequency Signature (SIG) Comments Components Source Depakote 125 mg tablet,dillan yed release Take 1 tablet twice a day by oral route. Depakote 125 mg tablet,dillan yed release Take 1 tablet twice a day by oral route. 02-04 00:00: 00 No 1 BID Depakote 125 mg tablet,del ayed release Take 1 tablet twice a day by oral route. [facility] Depakote 125 mg tablet,dillan yed release Take 1 tablet twice a day by oral route. Depakote 125 mg tablet,dillan yed release Take 1 tablet twice a day by oral route. 02-04 00:00: 00 No 1 BID Depakote 125 mg tablet,del ayed release Take 1 tablet twice a day by oral route. [facility] rivastigmin e 1.5 mg capsule Take 1 capsule twice a day by oral route. rivastigmin e 1.5 mg capsule Take 1 capsule twice a day by oral route. 01-11 00:00: 00 No rivastigmi ne 1.5 mg capsule Take 1 capsule twice a day by oral route. [facility] rivastigmin e 1.5 mg capsule Take 1 capsule twice a day by oral route. rivastigmin e 1.5 mg capsule Take 1 capsule twice a day by oral route. 320 00:00: 00 No rivastigmi ne 1.5 mg capsule Take 1 capsule twice a day by oral route. [facility] acetaminoph en 300 mg-codeine 30 mg tablet Take 1 tablet every 6 hours by oral route as needed for 10 days. acetaminoph en 300 mg-codeine 30 mg tablet Take 1 tablet every 6 hours by oral route as needed for 10 days. No 1 Q6H acetaminop hen 300 mg-codeine 30 mg tablet Take 1 tablet every 6 hours by oral route as needed for 10 days. [facility] aspirin 81 mg tablet,dillan yed release Take 1 tablet every day by oral route. aspirin 81 mg tablet,dillan yed release Take 1 tablet every day by oral route. No 1 Q1D aspirin 81 mg tablet,del ayed release Take 1 tablet every day by oral route. [facility] atorvastati n 40 mg tablet Take 1 tablet every day by oral route. atorvastati n 40 mg tablet Take 1 tablet every day by oral route. No 1 Q1D atorvastat in 40 mg tablet Take 1 tablet every day by oral route. [facility] carvedilol 6.25 mg tablet Take 1 tablet twice a day by oral route. carvedilol 6.25 mg tablet Take 1 tablet twice a day by oral route. No 1 BID carvedilol 6.25 mg tablet Take 1 tablet twice a day by oral route. [facility] cephalexin 500 mg tablet Take 1 tablet every 12 hours by oral route. cephalexin 500 mg tablet Take 1 tablet every 12 hours by oral route. No 1 Q12H cephalexin 500 mg tablet Take 1 tablet every 12 hours by oral route. [facility] ipratropium 0.5 mg-albutero l 2.5 mg/2.5 mL solution for nebulizatio n Inhale 3 mL every 6 hours by inhalation route as needed. ipratropium 0.5 mg-albutero l 2.5 mg/2.5 mL solution for nebulizatio n Inhale 3 mL every 6 hours by inhalation route as needed. No 3mL Q6H ipratropiu m 0.5 mg-albuter ol 2.5 mg/2.5 mL solution for nebulizati on Inhale 3 mL every 6 hours by inhalation route as needed. [facility] acetaminoph en 300 mg-codeine 30 mg tablet Take 1 tablet every 6 hours by oral route as needed for 10 days. acetaminoph en 300 mg-codeine 30 mg tablet Take 1 tablet every 6 hours by oral route as needed for 10 days. No 1 Q6H acetaminop hen 300 mg-codeine 30 mg tablet Take 1 tablet every 6 hours by oral route as needed for 10 days. [facility] aspirin 81 mg tablet,dillan yed release Take 1 tablet every day by oral route. aspirin 81 mg tablet,dillan yed release Take 1 tablet every day by oral route. No 1 Q1D aspirin 81 mg tablet,del ayed release Take 1 tablet every day by oral route. [facility] atorvastati n 40 mg tablet Take 1 tablet every day by oral route. atorvastati n 40 mg tablet Take 1 tablet every day by oral route. No 1 Q1D atorvastat in 40 mg tablet Take 1 tablet every day by oral route. [facility] carvedilol 6.25 mg tablet Take 1 tablet twice a day by oral route. carvedilol 6.25 mg tablet Take 1 tablet twice a day by oral route. No 1 BID carvedilol 6.25 mg tablet Take 1 tablet twice a day by oral route. [facility] ipratropium 0.5 mg-albutero l 2.5 mg/2.5 mL solution for nebulizatio n Inhale 3 mL every 6 hours by inhalation route as needed. ipratropium 0.5 mg-albutero l 2.5 mg/2.5 mL solution for nebulizatio n Inhale 3 mL every 6 hours by inhalation route as needed. No 3mL Q6H ipratropiu m 0.5 mg-albuter ol 2.5 mg/2.5 mL solution for nebulizati on Inhale 3 mL every 6 hours by inhalation route as needed. [facility] acetaminoph en 300 mg-codeine 30 mg tablet Take 1 tablet every 6 hours by oral route as needed for 10 days. acetaminoph en 300 mg-codeine 30 mg tablet Take 1 tablet every 6 hours by oral route as needed for 10 days. No 1 Q6H acetaminop hen 300 mg-codeine 30 mg tablet Take 1 tablet every 6 hours by oral route as needed for 10 days. [facility] apixaban 5 mg tablet Take 1 tablet twice a day by oral route for 30 days. apixaban 5 mg tablet Take 1 tablet twice a day by oral route for 30 days. No 1 BID apixaban 5 mg tablet Take 1 tablet twice a day by oral route for 30 days. [facility] aspirin 81 mg tablet,dillan yed release Take 1 tablet every day by oral route. aspirin 81 mg tablet,dillan yed release Take 1 tablet every day by oral route. No 1 Q1D aspirin 81 mg tablet,del ayed release Take 1 tablet every day by oral route. [facility] atorvastati n 40 mg tablet Take 1 tablet every day by oral route. atorvastati n 40 mg tablet Take 1 tablet every day by oral route. No 1 Q1D atorvastat in 40 mg tablet Take 1 tablet every day by oral route. [facility] carvedilol 6.25 mg tablet Take 1 tablet twice a day by oral route. carvedilol 6.25 mg tablet Take 1 tablet twice a day by oral route. No 1 BID carvedilol 6.25 mg tablet Take 1 tablet twice a day by oral route. [facility] ipratropium 0.5 mg-albutero l 2.5 mg/2.5 mL solution for nebulizatio n Inhale 3 mL every 6 hours by inhalation route as needed. ipratropium 0.5 mg-albutero l 2.5 mg/2.5 mL solution for nebulizatio n Inhale 3 mL every 6 hours by inhalation route as needed. No 3mL Q6H ipratropiu m 0.5 mg-albuter ol 2.5 mg/2.5 mL solution for nebulizati on Inhale 3 mL every 6 hours by inhalation route as needed. [facility] rivastigmin e 1.5 mg capsule Take 1 capsule twice a day by oral route. rivastigmin e 1.5 mg capsule Take 1 capsule twice a day by oral route. No 1capsul e(s) BID rivastigmi ne 1.5 mg capsule Take 1 capsule twice a day by oral route. [facility] acetaminoph en 300 mg-codeine 30 mg tablet Take 1 tablet every 8 hours by oral route as needed for 10 days. acetaminoph en 300 mg-codeine 30 mg tablet Take 1 tablet every 8 hours by oral route as needed for 10 days. No 1 Q8H acetaminop hen 300 mg-codeine 30 mg tablet Take 1 tablet every 8 hours by oral route as needed for 10 days. [facility] apixaban 5 mg tablet Take 1 tablet twice a day by oral route for 30 days. apixaban 5 mg tablet Take 1 tablet twice a day by oral route for 30 days. No 1 BID apixaban 5 mg tablet Take 1 tablet twice a day by oral route for 30 days. [facility] aspirin 81 mg tablet,dillan yed release Take 1 tablet every day by oral route. aspirin 81 mg tablet,dillan yed release Take 1 tablet every day by oral route. No 1 Q1D aspirin 81 mg tablet,del ayed release Take 1 tablet every day by oral route. [facility] atorvastati n 40 mg tablet Take 1 tablet every day by oral route. atorvastati n 40 mg tablet Take 1 tablet every day by oral route. No 1 Q1D atorvastat in 40 mg tablet Take 1 tablet every day by oral route. [facility] carvedilol 6.25 mg tablet Take 1 tablet twice a day by oral route. carvedilol 6.25 mg tablet Take 1 tablet twice a day by oral route. No 1 BID carvedilol 6.25 mg tablet Take 1 tablet twice a day by oral route. [facility] ipratropium 0.5 mg-albutero l 2.5 mg/2.5 mL solution for nebulizatio n Inhale 3 mL every 6 hours by inhalation route as needed. ipratropium 0.5 mg-albutero l 2.5 mg/2.5 mL solution for nebulizatio n Inhale 3 mL every 6 hours by inhalation route as needed. No 3mL Q6H ipratropiu m 0.5 mg-albuter ol 2.5 mg/2.5 mL solution for nebulizati on Inhale 3 mL every 6 hours by inhalation route as needed. [facility] rivastigmin e 1.5 mg capsule Take 1 capsule twice a day by oral route. rivastigmin e 1.5 mg capsule Take 1 capsule twice a day by oral route. No 1capsul e(s) BID rivastigmi ne 1.5 mg capsule Take 1 capsule twice a day by oral route. [facility] acetaminoph en 300 mg-codeine 30 mg tablet Take 1 tablet every 8 hours by oral route as needed for 10 days. acetaminoph en 300 mg-codeine 30 mg tablet Take 1 tablet every 8 hours by oral route as needed for 10 days. No 1 Q8H acetaminop hen 300 mg-codeine 30 mg tablet Take 1 tablet every 8 hours by oral route as needed for 10 days. [facility] apixaban 5 mg tablet Take 1 tablet twice a day by oral route for 30 days. apixaban 5 mg tablet Take 1 tablet twice a day by oral route for 30 days. No 1 BID apixaban 5 mg tablet Take 1 tablet twice a day by oral route for 30 days. [facility] aspirin 81 mg tablet,dillan yed release Take 1 tablet every day by oral route. aspirin 81 mg tablet,dillan yed release Take 1 tablet every day by oral route. No 1 Q1D aspirin 81 mg tablet,del ayed release Take 1 tablet every day by oral route. [facility] atorvastati n 40 mg tablet Take 1 tablet every day by oral route. atorvastati n 40 mg tablet Take 1 tablet every day by oral route. No 1 Q1D atorvastat in 40 mg tablet Take 1 tablet every day by oral route. [facility] carvedilol 6.25 mg tablet Take 1 tablet twice a day by oral route. carvedilol 6.25 mg tablet Take 1 tablet twice a day by oral route. No 1 BID carvedilol 6.25 mg tablet Take 1 tablet twice a day by oral route. [facility] diclofenac 1 % topical gel APPLY 2 GRAMS TO THE AFFECTED AREA(S) BY TOPICAL ROUTE 2 TIMES PER DAY (KNEES) diclofenac 1 % topical gel APPLY 2 GRAMS TO THE AFFECTED AREA(S) BY TOPICAL ROUTE 2 TIMES PER DAY (KNEES) No diclofenac 1 % topical gel APPLY 2 GRAMS TO THE AFFECTED AREA(S) BY TOPICAL ROUTE 2 TIMES PER DAY (KNEES) [facility] ipratropium 0.5 mg-albutero l 2.5 mg/2.5 mL solution for nebulizatio n Inhale 3 mL every 6 hours by inhalation route as needed. ipratropium 0.5 mg-albutero l 2.5 mg/2.5 mL solution for nebulizatio n Inhale 3 mL every 6 hours by inhalation route as needed. No 3mL Q6H ipratropiu m 0.5 mg-albuter ol 2.5 mg/2.5 mL solution for nebulizati on Inhale 3 mL every 6 hours by inhalation route as needed. [facility] rivastigmin e 1.5 mg capsule Take 1 capsule twice a day by oral route. rivastigmin e 1.5 mg capsule Take 1 capsule twice a day by oral route. No 1capsul e(s) BID rivastigmi ne 1.5 mg capsule Take 1 capsule twice a day by oral route. [facility] acetaminoph en 300 mg-codeine 30 mg tablet Take 1 tablet every 8 hours by oral route as needed for 10 days. acetaminoph en 300 mg-codeine 30 mg tablet Take 1 tablet every 8 hours by oral route as needed for 10 days. No 1 Q8H acetaminop hen 300 mg-codeine 30 mg tablet Take 1 tablet every 8 hours by oral route as needed for 10 days. [facility] aspirin 81 mg tablet,dillan yed release Take 1 tablet every day by oral route. aspirin 81 mg tablet,dillan yed release Take 1 tablet every day by oral route. No 1 Q1D aspirin 81 mg tablet,del ayed release Take 1 tablet every day by oral route. [facility] atorvastati n 40 mg tablet Take 1 tablet every day by oral route. atorvastati n 40 mg tablet Take 1 tablet every day by oral route. No 1 Q1D atorvastat in 40 mg tablet Take 1 tablet every day by oral route. [facility] carvedilol 6.25 mg tablet Take 1 tablet twice a day by oral route. carvedilol 6.25 mg tablet Take 1 tablet twice a day by oral route. No carvedilol 6.25 mg tablet Take 1 tablet twice a day by oral route. [facility] cholecalcif marlee (vitamin D3) 1,250 mcg (50,000 unit) capsule Take 1 capsule every week by oral route for 90 days. cholecalcif marlee (vitamin D3) 1,250 mcg (50,000 unit) capsule Take 1 capsule every week by oral route for 90 days. No 1capsul e(s) Q1W cholecalci ferol (vitamin D3) 1,250 mcg (50,000 unit) capsule Take 1 capsule every week by oral route for 90 days. [facility] diclofenac 1 % topical gel APPLY 2 GRAMS TO THE AFFECTED AREA(S) BY TOPICAL ROUTE 2 TIMES PER DAY (KNEES) diclofenac 1 % topical gel APPLY 2 GRAMS TO THE AFFECTED AREA(S) BY TOPICAL ROUTE 2 TIMES PER DAY (KNEES) No diclofenac 1 % topical gel APPLY 2 GRAMS TO THE AFFECTED AREA(S) BY TOPICAL ROUTE 2 TIMES PER DAY (KNEES) [facility] Eliquis 5 mg tablet Take 1 tablet twice a day by oral route for 30 days. Eliquis 5 mg tablet Take 1 tablet twice a day by oral route for 30 days. No Eliquis 5 mg tablet Take 1 tablet twice a day by oral route for 30 days. [facility] ipratropium 0.5 mg-albutero l 2.5 mg/2.5 mL solution for nebulizatio n Inhale 3 mL every 6 hours by inhalation route as needed. ipratropium 0.5 mg-albutero l 2.5 mg/2.5 mL solution for nebulizatio n Inhale 3 mL every 6 hours by inhalation route as needed. No 3mL Q6H ipratropiu m 0.5 mg-albuter ol 2.5 mg/2.5 mL solution for nebulizati on Inhale 3 mL every 6 hours by inhalation route as needed. [facility] rivastigmin e 1.5 mg capsule Take 1 capsule twice a day by oral route. rivastigmin e 1.5 mg capsule Take 1 capsule twice a day by oral route. No 1capsul e(s) BID rivastigmi ne 1.5 mg capsule Take 1 capsule twice a day by oral route. [facility] acetaminoph en 300 mg-codeine 30 mg tablet Take 1 tablet every 8 hours by oral route as needed for 10 days. acetaminoph en 300 mg-codeine 30 mg tablet Take 1 tablet every 8 hours by oral route as needed for 10 days. No 1 Q8H acetaminop hen 300 mg-codeine 30 mg tablet Take 1 tablet every 8 hours by oral route as needed for 10 days. [facility] aspirin 81 mg tablet,dillan yed release Take 1 tablet every day by oral route. aspirin 81 mg tablet,dillan yed release Take 1 tablet every day by oral route. No 1 Q1D aspirin 81 mg tablet,del ayed release Take 1 tablet every day by oral route. [facility] atorvastati n 40 mg tablet Take 1 tablet every day by oral route. atorvastati n 40 mg tablet Take 1 tablet every day by oral route. No atorvastat in 40 mg tablet Take 1 tablet every day by oral route. [facility] carvedilol 6.25 mg tablet Take 1 tablet twice a day by oral route. carvedilol 6.25 mg tablet Take 1 tablet twice a day by oral route. No carvedilol 6.25 mg tablet Take 1 tablet twice a day by oral route. [facility] cholecalcif marlee (vitamin D3) 1,250 mcg (50,000 unit) capsule Take 1 capsule every week by oral route for 90 days. cholecalcif marlee (vitamin D3) 1,250 mcg (50,000 unit) capsule Take 1 capsule every week by oral route for 90 days. No 1capsul e(s) Q1W cholecalci ferol (vitamin D3) 1,250 mcg (50,000 unit) capsule Take 1 capsule every week by oral route for 90 days. [facility] diclofenac 1 % topical gel APPLY 2 GRAMS TO THE AFFECTED AREA(S) BY TOPICAL ROUTE 2 TIMES PER DAY (KNEES) diclofenac 1 % topical gel APPLY 2 GRAMS TO THE AFFECTED AREA(S) BY TOPICAL ROUTE 2 TIMES PER DAY (KNEES) No diclofenac 1 % topical gel APPLY 2 GRAMS TO THE AFFECTED AREA(S) BY TOPICAL ROUTE 2 TIMES PER DAY (KNEES) [facility] divalproex 500 mg tablet,dillan yed release divalproex 500 mg tablet,dillan yed release No divalproex 500 mg tablet,del ayed release [facility] divalproex ER 500 mg tablet,exte nded release 24 hr divalproex ER 500 mg tablet,exte nded release 24 hr No divalproex ER 500 mg tablet,ext ended release 24 hr [facility] Eliquis 5 mg tablet Take 1 tablet twice a day by oral route for 30 days. Eliquis 5 mg tablet Take 1 tablet twice a day by oral route for 30 days. No Eliquis 5 mg tablet Take 1 tablet twice a day by oral route for 30 days. [facility] ipratropium 0.5 mg-albutero l 2.5 mg/2.5 mL solution for nebulizatio n Inhale 3 mL every 6 hours by inhalation route as needed. ipratropium 0.5 mg-albutero l 2.5 mg/2.5 mL solution for nebulizatio n Inhale 3 mL every 6 hours by inhalation route as needed. No 3mL Q6H ipratropiu m 0.5 mg-albuter ol 2.5 mg/2.5 mL solution for nebulizati on Inhale 3 mL every 6 hours by inhalation route as needed. [facility] rivastigmin e 1.5 mg capsule Take 1 capsule twice a day by oral route. rivastigmin e 1.5 mg capsule Take 1 capsule twice a day by oral route. No rivastigmi ne 1.5 mg capsule Take 1 capsule twice a day by oral route. [facility] rivastigmin e 3 mg capsule rivastigmin e 3 mg capsule No rivastigmi ne 3 mg capsule [facility] acetaminoph en 300 mg-codeine 30 mg tablet Take 1 tablet every 6 hours by oral route as needed for 10 days. acetaminoph en 300 mg-codeine 30 mg tablet Take 1 tablet every 6 hours by oral route as needed for 10 days. No 1 Q6H acetaminop hen 300 mg-codeine 30 mg tablet Take 1 tablet every 6 hours by oral route as needed for 10 days. [facility] atorvastati n 40 mg tablet Take 1 tablet every day by oral route. atorvastati n 40 mg tablet Take 1 tablet every day by oral route. No 1 Q1D atorvastat in 40 mg tablet Take 1 tablet every day by oral route. [facility] acetaminoph en 300 mg-codeine 30 mg tablet Take 1 tablet every 8 hours by oral route as needed for 10 days. acetaminoph en 300 mg-codeine 30 mg tablet Take 1 tablet every 8 hours by oral route as needed for 10 days. No 1 Q8H acetaminop hen 300 mg-codeine 30 mg tablet Take 1 tablet every 8 hours by oral route as needed for 10 days. [facility] carvedilol 6.25 mg tablet Take 1 tablet twice a day by oral route. carvedilol 6.25 mg tablet Take 1 tablet twice a day by oral route. No 1 BID carvedilol 6.25 mg tablet Take 1 tablet twice a day by oral route. [facility] aspirin 81 mg tablet,dillan yed release Take 1 tablet every day by oral route. aspirin 81 mg tablet,dillan yed release Take 1 tablet every day by oral route. No 1 Q1D aspirin 81 mg tablet,del ayed release Take 1 tablet every day by oral route. [facility] atorvastati n 40 mg tablet Take 1 tablet every day by oral route. atorvastati n 40 mg tablet Take 1 tablet every day by oral route. No atorvastat in 40 mg tablet Take 1 tablet every day by oral route. [facility] carvedilol 6.25 mg tablet Take 1 tablet twice a day by oral route. carvedilol 6.25 mg tablet Take 1 tablet twice a day by oral route. No carvedilol 6.25 mg tablet Take 1 tablet twice a day by oral route. [facility] cholecalcif marlee (vitamin D3) 1,250 mcg (50,000 unit) capsule Take 1 capsule every week by oral route for 90 days. cholecalcif marlee (vitamin D3) 1,250 mcg (50,000 unit) capsule Take 1 capsule every week by oral route for 90 days. No 1capsul e(s) Q1W cholecalci ferol (vitamin D3) 1,250 mcg (50,000 unit) capsule Take 1 capsule every week by oral route for 90 days. [facility] Depakote 250 mg tablet,dillan yed release Take 1 tablet twice a day by oral route. Depakote 250 mg tablet,dillan yed release Take 1 tablet twice a day by oral route. No 1 BID Depakote 250 mg tablet,del ayed release Take 1 tablet twice a day by oral route. [facility] diclofenac 1 % topical gel APPLY 2 GRAMS TO THE AFFECTED AREA(S) BY TOPICAL ROUTE 2 TIMES PER DAY (KNEES) diclofenac 1 % topical gel APPLY 2 GRAMS TO THE AFFECTED AREA(S) BY TOPICAL ROUTE 2 TIMES PER DAY (KNEES) No diclofenac 1 % topical gel APPLY 2 GRAMS TO THE AFFECTED AREA(S) BY TOPICAL ROUTE 2 TIMES PER DAY (KNEES) [facility] Eliquis 5 mg tablet Take 1 tablet twice a day by oral route for 30 days. Eliquis 5 mg tablet Take 1 tablet twice a day by oral route for 30 days. No Eliquis 5 mg tablet Take 1 tablet twice a day by oral route for 30 days. [facility] ipratropium 0.5 mg-albutero l 2.5 mg/2.5 mL solution for nebulizatio n Inhale 3 mL every 6 hours by inhalation route as needed. ipratropium 0.5 mg-albutero l 2.5 mg/2.5 mL solution for nebulizatio n Inhale 3 mL every 6 hours by inhalation route as needed. No 3mL Q6H ipratropiu m 0.5 mg-albuter ol 2.5 mg/2.5 mL solution for nebulizati on Inhale 3 mL every 6 hours by inhalation route as needed. [facility] cephalexin 500 mg tablet Take 1 tablet every 12 hours by oral route. cephalexin 500 mg tablet Take 1 tablet every 12 hours by oral route. No 1 Q12H cephalexin 500 mg tablet Take 1 tablet every 12 hours by oral route. [facility] ipratropium 0.5 mg-albutero l 2.5 mg/2.5 mL solution for nebulizatio n Inhale 3 mL every 6 hours by inhalation route as needed. ipratropium 0.5 mg-albutero l 2.5 mg/2.5 mL solution for nebulizatio n Inhale 3 mL every 6 hours by inhalation route as needed. No 3mL Q6H ipratropiu m 0.5 mg-albuter ol 2.5 mg/2.5 mL solution for nebulizati on Inhale 3 mL every 6 hours by inhalation route as needed. [facility] acetaminoph en 300 mg-codeine 30 mg tablet Take 1 tablet every 8 hours by oral route as needed for 10 days. acetaminoph en 300 mg-codeine 30 mg tablet Take 1 tablet every 8 hours by oral route as needed for 10 days. No 1 Q8H acetaminop hen 300 mg-codeine 30 mg tablet Take 1 tablet every 8 hours by oral route as needed for 10 days. [facility] aspirin 81 mg tablet,dillan yed release Take 1 tablet every day by oral route. aspirin 81 mg tablet,dillan yed release Take 1 tablet every day by oral route. No 1 Q1D aspirin 81 mg tablet,del ayed release Take 1 tablet every day by oral route. [facility] atorvastati n 40 mg tablet Take 1 tablet every day by oral route. atorvastati n 40 mg tablet Take 1 tablet every day by oral route. No atorvastat in 40 mg tablet Take 1 tablet every day by oral route. [facility] carvedilol 6.25 mg tablet Take 1 tablet twice a day by oral route. carvedilol 6.25 mg tablet Take 1 tablet twice a day by oral route. No carvedilol 6.25 mg tablet Take 1 tablet twice a day by oral route. [facility] cholecalcif marlee (vitamin D3) 1,250 mcg (50,000 unit) capsule Take 1 capsule every week by oral route for 90 days. cholecalcif marlee (vitamin D3) 1,250 mcg (50,000 unit) capsule Take 1 capsule every week by oral route for 90 days. No 1capsul e(s) Q1W cholecalci ferol (vitamin D3) 1,250 mcg (50,000 unit) capsule Take 1 capsule every week by oral route for 90 days. [facility] Depakote 250 mg tablet,dillan yed release Take 1 tablet twice a day by oral route. Depakote 250 mg tablet,dillan yed release Take 1 tablet twice a day by oral route. No 1 BID Depakote 250 mg tablet,del ayed release Take 1 tablet twice a day by oral route. [facility] diclofenac 1 % topical gel APPLY 2 GRAMS TO THE AFFECTED AREA(S) BY TOPICAL ROUTE 2 TIMES PER DAY (KNEES) diclofenac 1 % topical gel APPLY 2 GRAMS TO THE AFFECTED AREA(S) BY TOPICAL ROUTE 2 TIMES PER DAY (KNEES) No diclofenac 1 % topical gel APPLY 2 GRAMS TO THE AFFECTED AREA(S) BY TOPICAL ROUTE 2 TIMES PER DAY (KNEES) [facility] Eliquis 5 mg tablet Take 1 tablet twice a day by oral route for 30 days. Eliquis 5 mg tablet Take 1 tablet twice a day by oral route for 30 days. No Eliquis 5 mg tablet Take 1 tablet twice a day by oral route for 30 days. [facility] ipratropium 0.5 mg-albutero l 2.5 mg/2.5 mL solution for nebulizatio n Inhale 3 mL every 6 hours by inhalation route as needed. ipratropium 0.5 mg-albutero l 2.5 mg/2.5 mL solution for nebulizatio n Inhale 3 mL every 6 hours by inhalation route as needed. No 3mL Q6H ipratropiu m 0.5 mg-albuter ol 2.5 mg/2.5 mL solution for nebulizati on Inhale 3 mL every 6 hours by inhalation route as needed. [facility] acetaminoph en 300 mg-codeine 30 mg tablet Take 1 tablet every 6 hours by oral route as needed for 10 days. acetaminoph en 300 mg-codeine 30 mg tablet Take 1 tablet every 6 hours by oral route as needed for 10 days. No 1 Q6H acetaminop hen 300 mg-codeine 30 mg tablet Take 1 tablet every 6 hours by oral route as needed for 10 days. [facility] aspirin 81 mg tablet,dillan yed release Take 1 tablet every day by oral route. aspirin 81 mg tablet,dillan yed release Take 1 tablet every day by oral route. No 1 Q1D aspirin 81 mg tablet,del ayed release Take 1 tablet every day by oral route. [facility] atorvastati n 40 mg tablet Take 1 tablet every day by oral route. atorvastati n 40 mg tablet Take 1 tablet every day by oral route. No 1 Q1D atorvastat in 40 mg tablet Take 1 tablet every day by oral route. [facility] carvedilol 6.25 mg tablet Take 1 tablet twice a day by oral route. carvedilol 6.25 mg tablet Take 1 tablet twice a day by oral route. No 1 BID carvedilol 6.25 mg tablet Take 1 tablet twice a day by oral route. [facility] cephalexin 500 mg tablet Take 1 tablet every 12 hours by oral route. cephalexin 500 mg tablet Take 1 tablet every 12 hours by oral route. No 1 Q12H cephalexin 500 mg tablet Take 1 tablet every 12 hours by oral route. [facility] ipratropium 0.5 mg-albutero l 2.5 mg/2.5 mL solution for nebulizatio n Inhale 3 mL every 6 hours by inhalation route as needed. ipratropium 0.5 mg-albutero l 2.5 mg/2.5 mL solution for nebulizatio n Inhale 3 mL every 6 hours by inhalation route as needed. No 3mL Q6H ipratropiu m 0.5 mg-albuter ol 2.5 mg/2.5 mL solution for nebulizati on Inhale 3 mL every 6 hours by inhalation route as needed. [facility] acetaminoph en 300 mg-codeine 30 mg tablet Take 1 tablet every 6 hours by oral route as needed for 10 days. acetaminoph en 300 mg-codeine 30 mg tablet Take 1 tablet every 6 hours by oral route as needed for 10 days. No 1 Q6H acetaminop hen 300 mg-codeine 30 mg tablet Take 1 tablet every 6 hours by oral route as needed for 10 days. [facility] aspirin 81 mg tablet,dillan yed release Take 1 tablet every day by oral route. aspirin 81 mg tablet,dillan yed release Take 1 tablet every day by oral route. No 1 Q1D aspirin 81 mg tablet,del ayed release Take 1 tablet every day by oral route. [facility] atorvastati n 40 mg tablet Take 1 tablet every day by oral route. atorvastati n 40 mg tablet Take 1 tablet every day by oral route. No 1 Q1D atorvastat in 40 mg tablet Take 1 tablet every day by oral route. [facility] carvedilol 6.25 mg tablet Take 1 tablet twice a day by oral route. carvedilol 6.25 mg tablet Take 1 tablet twice a day by oral route. No 1 BID carvedilol 6.25 mg tablet Take 1 tablet twice a day by oral route. [facility] cephalexin 500 mg tablet Take 1 tablet every 12 hours by oral route. cephalexin 500 mg tablet Take 1 tablet every 12 hours by oral route. No 1 Q12H cephalexin 500 mg tablet Take 1 tablet every 12 hours by oral route. [facility] ipratropium 0.5 mg-albutero l 2.5 mg/2.5 mL solution for nebulizatio n Inhale 3 mL every 6 hours by inhalation route as needed. ipratropium 0.5 mg-albutero l 2.5 mg/2.5 mL solution for nebulizatio n Inhale 3 mL every 6 hours by inhalation route as needed. No 3mL Q6H ipratropiu m 0.5 mg-albuter ol 2.5 mg/2.5 mL solution for nebulizati on Inhale 3 mL every 6 hours by inhalation route as needed. [facility] Vital Signs Vital Name Observation Time Observation Value Comments S ource BP Diastolic 2023-02-05 00:00:00 61 mm[Hg] [facility] Height 2023-02-05 00:00:00 69 [in_i] [facility] BMI (Body Mass Index) 2023-02-05 00:00:00 25.3 kg/m2 [facility] BP Systolic 2023-02-05 00:00:00 113 mm[Hg] [facility] Body Weight 2023-02-05 00:00:00 2736 [oz_av] [facility] BP Diastolic 2023-02-02 00:00:00 88 mm[Hg] [facility] Height 2023-02-02 00:00:00 69 [in_i] [facility] BMI (Body Mass Index) 2023-02-02 00:00:00 26.4 kg/m2 [facility] BP Systolic 2023-02-02 00:00:00 136 mm[Hg] [facility] Body Weight 2023-02-02 00:00:00 2856 [oz_av] [facility] BP Diastolic 2023-01-27 00:00:00 79 mm[Hg] [facility] Height 2023-01-27 00:00:00 69 [in_i] [facility] BMI (Body Mass Index) 2023-01-27 00:00:00 26.3 kg/m2 [facility] BP Systolic 2023-01-27 00:00:00 130 mm[Hg] [facility] Body Weight 2023-01-27 00:00:00 2853 [oz_av] [facility] BP Diastolic 2022-12-29 00:00:00 75 mm[Hg] [facility] Height 2022-12-29 00:00:00 69 [in_i] [facility] BMI (Body Mass Index) 2022-12-29 00:00:00 26.3 kg/m2 [facility] BP Systolic 2022-12-29 00:00:00 138 mm[Hg] [facility] Body Weight 2022-12-29 00:00:00 2853 [oz_av] [facility] BP Diastolic 2022-12-15 00:00:00 78 mm[Hg] [facility] Height 2022-12-15 00:00:00 69 [in_i] [facility] BMI (Body Mass Index) 2022-12-15 00:00:00 25.7 kg/m2 [facility] BP Systolic 2022-12-15 00:00:00 138 mm[Hg] [facility] Body Weight 2022-12-15 00:00:00 2784 [oz_av] [facility] BP Diastolic 2022-11-24 00:00:00 81 mm[Hg] [facility] Height 2022-11-24 00:00:00 69 [in_i] [facility] BMI (Body Mass Index) 2022-11-24 00:00:00 25.7 kg/m2 [facility] BP Systolic 2022-11-24 00:00:00 139 mm[Hg] [facility] Body Weight 2022-11-24 00:00:00 2784 [oz_av] [facility] BP Diastolic 2022-10-16 00:00:00 88 mm[Hg] [facility] Height 2022-10-16 00:00:00 69 [in_i] [facility] BMI (Body Mass Index) 2022-10-16 00:00:00 25.8 kg/m2 [facility] BP Systolic 2022-10-16 00:00:00 134 mm[Hg] [facility] Body Weight 2022-10-16 00:00:00 2792 [oz_av] [facility] BP Diastolic 2022-10-09 00:00:00 77 mm[Hg] [facility] Height 2022-10-09 00:00:00 69 [in_i] [facility] BMI (Body Mass Index) 2022-10-09 00:00:00 25.5 kg/m2 [facility] BP Systolic 2022-10-09 00:00:00 138 mm[Hg] [facility] Body Weight 2022-10-09 00:00:00 2758 [oz_av] [facility] BP Diastolic 2022-09-29 00:00:00 82 mm[Hg] [facility] Height 2022-09-29 00:00:00 69 [in_i] [facility] BMI (Body Mass Index) 2022-09-29 00:00:00 24.8 kg/m2 [facility] BP Systolic 2022-09-29 00:00:00 142 mm[Hg] [facility] Body Weight 2022-09-29 00:00:00 2688 [oz_av] [facility] Body Weight 2022-09-22 00:00:00 2688 [oz_av] [facility] BP Diastolic 2022-09-22 00:00:00 77 mm[Hg] [facility] Height 2022-09-22 00:00:00 69 [in_i] [facility] BMI (Body Mass Index) 2022-09-22 00:00:00 24.8 kg/m2 [facility] BP Systolic 2022-09-22 00:00:00 138 mm[Hg] [facility] BP Diastolic 2022-09-15 00:00:00 77 mm[Hg] [facility] BP Systolic 2022-09-15 00:00:00 138 mm[Hg] [facility] Body Weight 2022-09-15 00:00:00 2672 [oz_av] [facility] BP Diastolic 2022-09-08 00:00:00 79 mm[Hg] [facility] Height 2022-09-08 00:00:00 69 [in_i] [facility] BMI (Body Mass Index) 2022-09-08 00:00:00 24.7 kg/m2 [facility] BP Systolic 2022-09-08 00:00:00 136 mm[Hg] [facility] Body Weight 2022-09-08 00:00:00 2672 [oz_av] [facility] Encounters Start Date/Time End Date/Time Encounter Type Admission Type Attending [facility] Facility Care Department Encounter ID Source 2023-10-21 00:00:00 2023-10-21 00:00:00 Outpatient [facility]_J PRIV PRIV [id number] [facility] 2023-10-15 00:00:00 2023-10-15 00:00:00 Outpatient [facility]_Tod d_J PRIV PRIV [id number] [facility] 2023-10-07 00:00:00 2023-10-07 00:00:00 Outpatient GC_[facility]_Tod d_J PRIV PRIV [id number] [facility] 2023-09-29 00:00:00 2023-09-29 00:00:00 Outpatient GC_[facility]_Tod d_J PRIV PRIV [id number] [facility] 2023-09-29 00:00:00 2023-09-29 00:00:00 Outpatient GC_[facility]_Tod d_J PRIV PRIV [id number] [facility] 2023-09-24 00:00:00 2023-09-24 00:00:00 Outpatient GC_[facility]_Tod d_J PRIV PRIV [id number] [facility] 2023-09-10 00:00:00 2023-09-10 00:00:00 Outpatient GC_[facility]_Tod d_J PRIV PRIV [id number] [facility] 2023-09-10 00:00:00 2023-09-10 00:00:00 Outpatient GC_BAHC_Tod d_J PRIV PRIV [id number] [facility] 2023-09-07 00:00:00 2023-09-07 00:00:00 Outpatient GC_BAHC_Tod d_J PRIV PRIV [id number] [facility] 2023-09-01 00:00:00 2023-09-01 00:00:00 Outpatient GC_BAHC_Tod d_J PRIV PRIV [id number] [facility] 2023-08-30 00:00:00 2023-08-30 00:00:00 Outpatient GC_BAHC_Tod d_J PRIV PRIV [id number] [facility] 2023-08-27 00:00:00 2023-08-27 00:00:00 Outpatient GC_BAHC_Tod d_J PRIV PRIV [id number] [facility] 2023-08-26 00:00:00 2023-08-26 00:00:00 Outpatient GC_BAHC_Tod d_J PRIV PRIV [id number] [facility] 2023-08-18 00:00:00 2023-08-18 00:00:00 Outpatient GC_BAHC_Tod d_J PRIV PRIV [id number] [facility] 2023-08-17 00:00:00 2023-08-17 00:00:00 Outpatient GC_BAHC_Tod d_J PRIV PRIV [id number] [facility] 2023-08-17 00:00:00 2023-08-17 00:00:00 Outpatient GC_BAHC_Tod d_J PRIV PRIV [id number] [facility] 2023-08-13 00:00:00 2023-08-13 00:00:00 Outpatient GC_BAHC_Tod d_J PRIV PRIV [id number] [facility] 2023-08-12 00:00:00 2023-08-12 00:00:00 Outpatient GC_BAHC_Tod d_J PRIV PRIV [id number] [facility] 2023-08-11 00:00:00 2023-08-11 00:00:00 Outpatient GC_BAHC_Tod d_J PRIV PRIV [id number] [facility] 2023-08-11 00:00:00 2023-08-11 00:00:00 Outpatient GC_BAHC_Tod d_J PRIV PRIV [id number] [facility] 2023-08-04 00:00:00 2023-08-04 00:00:00 Outpatient GC_BAHC_Tod d_J PRIV PRIV [id number] [facility] 2023-07-28 00:00:00 2023-07-28 00:00:00 Outpatient GC_BAHC_Tod d_J PRIV PRIV [id number] [facility] 2023-07-28 00:00:00 2023-07-28 00:00:00 Outpatient GC_BAHC_Tod d_J PRIV PRIV [id number] [facility] 2023-07-26 00:00:00 2023-07-26 00:00:00 Outpatient GC_BAHC_Tod d_J PRIV PRIV [id number] [facility] 2023-07-02 00:00:00 2023-07-02 00:00:00 Outpatient GC_BAHC_Tod d_J PRIV PRIV [id number] [facility] 2023-07-02 00:00:00 2023-07-02 00:00:00 Outpatient GC_BAHC_Tod d_J PRIV PRIV [id number] [facility] 2023-07-02 00:00:00 2023-07-02 00:00:00 Outpatient GC_BAHC_Tod d_J PRIV PRIV [id number] [facility] 2023-07-01 00:00:00 2023-07-01 00:00:00 Outpatient GC_BAHC_Tod d_J PRIV PRIV [id number] [facility] 2023-06-30 00:00:00 2023-06-30 00:00:00 Outpatient GC_BAHC_Tod d_J PRIV PRIV [id number] [facility] 2023-06-23 00:00:00 2023-06-23 00:00:00 Outpatient GC_BAHC_Tod d_J PRIV PRIV [id number] [facility] 2023-06-18 00:00:00 2023-06-18 00:00:00 Outpatient GC_BAHC_Tod d_J PRIV PRIV [id number] [facility] 2023-06-14 00:00:00 2023-06-14 00:00:00 Outpatient GC_BAHC_Tod d_J PRIV PRIV [id number] [facility] 2023-06-11 00:00:00 2023-06-11 00:00:00 Outpatient GC_BAHC_Tod d_J PRIV PRIV [id number] [facility] 2023-06-11 00:00:00 2023-06-11 00:00:00 Outpatient GC_BAHC_Tod d_J PRIV PRIV [id number] [facility] 2023-06-04 00:00:00 2023-06-04 00:00:00 Outpatient GC_BAHC_Tod d_J PRIV PRIV [id number] [facility] 2023-06-04 00:00:00 2023-06-04 00:00:00 Outpatient GC_BAHC_Tod d_J PRIV PRIV [id number] [facility] 2023-06-04 00:00:00 2023-06-04 00:00:00 Outpatient GC_BAHC_Tod d_J PRIV PRIV [id number] [facility] 2023-06-02 00:00:00 2023-06-02 00:00:00 Outpatient GC_BAHC_Tod d_J PRIV PRIV [id number] [facility] 2023-06-02 00:00:00 2023-06-02 00:00:00 Outpatient GC_BAHC_Tod d_J PRIV PRIV [id number] [facility] 2023-05-26 00:00:00 2023-05-26 00:00:00 Outpatient GC_BAHC_Tod d_J PRIV PRIV [id number] [facility] 2023-05-26 00:00:00 2023-05-26 00:00:00 Outpatient GC_BAHC_Tod d_J PRIV PRIV [id number] [facility] 2023-05-24 00:00:00 2023-05-24 00:00:00 Outpatient GC_BAHC_Tod d_J PRIV PRIV [id number] [facility] 2023-05-20 00:00:00 2023-05-20 00:00:00 Outpatient GC_BAHC_Tod d_J PRIV PRIV [id number] [facility] 2023-05-14 00:00:00 2023-05-14 00:00:00 Outpatient GC_BAHC_Tod d_J PRIV PRIV [id number] [facility] 2023-05-14 00:00:00 2023-05-14 00:00:00 Outpatient GC_BAHC_Tod d_J PRIV PRIV [id number] [facility] 2023-05-11 00:00:00 2023-05-11 00:00:00 Outpatient GC_BAHC_Tod d_J PRIV PRIV [id number] [facility] 2023-04-30 00:00:00 2023-04-30 00:00:00 Outpatient GC_BAHC_Tod d_J PRIV PRIV [id number] [facility] 2023-04-30 00:00:00 2023-04-30 00:00:00 Outpatient GC_BAHC_Tod d_J PRIV PRIV [id number] [facility] 2023-04-30 00:00:00 2023-04-30 00:00:00 Outpatient GC_BAHC_Tod d_J PRIV PRIV [id number] [facility] 2023-04-23 00:00:00 2023-04-23 00:00:00 Outpatient GC_BAHC_Tod d_J PRIV PRIV [id number] [facility] 2023-04-22 00:00:00 2023-04-22 00:00:00 Outpatient GC_BAHC_Tod d_J PRIV PRIV [id number] [facility] 2023-04-21 00:00:00 2023-04-21 00:00:00 Outpatient GC_BAHC_Tod d_J PRIV PRIV [id number] [facility] 2023-04-20 00:00:00 2023-04-20 00:00:00 Outpatient GC_BAHC_Tod d_J PRIV PRIV [id number] [facility] 2023-04-15 00:00:00 2023-04-15 00:00:00 Outpatient GC_BAHC_Tod d_J PRIV PRIV [id number] [facility] 2023-04-14 00:00:00 2023-04-14 00:00:00 Outpatient GC_BAHC_Tod d_J PRIV PRIV [id number] [facility] 2023-04-13 00:00:00 2023-04-13 00:00:00 Outpatient GC_BAHC_Tod d_J PRIV PRIV [id number] [facility] 2023-04-07 00:00:00 2023-04-07 00:00:00 Outpatient GC_BAHC_Tod d_J PRIV PRIV [id number] [facility] 2023-03-19 00:00:00 2023-03-19 00:00:00 Outpatient GC_BAHC_Tod d_J PRIV PRIV [id number] [facility] 2023-03-10 00:00:00 2023-03-10 00:00:00 Outpatient GC_BAHC_Tod d_J PRIV PRIV [id number] [facility] 2023-03-10 00:00:00 2023-03-10 00:00:00 Outpatient GC_BAHC_Tod d_J PRIV PRIV [id number] [facility] 2023-03-04 00:00:00 2023-03-04 00:00:00 Outpatient GC_BAHC_Tod d_J PRIV PRIV [id number] [facility] 2023-03-02 00:00:00 2023-03-02 00:00:00 Outpatient GC_BAHC_Tod d_J PRIV PRIV [id number] [facility] 2023-02-25 00:00:00 2023-02-25 00:00:00 Outpatient GC_BAHC_Tod d_J PRIV PRIV [id number] [facility] 2023-02-05 00:00:00 2023-02-05 00:00:00 LANDON Sullivan: [address] [place] [phone] , Ph. [facility] - [facility] [id number] [facility] 2023-02-02 00:00:00 2023-02-02 00:00:00 Outpatient GC_BAHC_Tod d_J PRIV PRIV [id number] [facility] 2023-02-02 00:00:00 2023-02-02 00:00:00 Outpatient GC_BAHC_Tod d_J PRIV PRIV [id number] [facility] 2023-02-02 00:00:00 2023-02-02 00:00:00 Outpatient GC_BAHC_Tod d_J PRIV PRIV [id number] [facility] 2023-02-02 00:00:00 2023-02-02 00:00:00 Outpatient GC_BAHC_Tod d_J PRIV PRIV [id number] [facility] 2023-02-02 00:00:00 2023-02-02 00:00:00 Pino Almeida MD: [address] [place] [phone] , Ph. [facility] [id number] [facility] 2023-01-27 00:00:00 2023-01-27 00:00:00 LANDON Sullivan: [address] [place] [phone] , Ph. [facility] - [facility] [id number] [facility] 2023-01-20 00:00:00 2023-01-20 00:00:00 Outpatient GC_BAHC_Tod d_J PRIV PRIV [id number] [facility] 2023-01-20 00:00:00 2023-01-20 00:00:00 Outpatient GC_BAHC_Tod d_J PRIV PRIV [id number] [facility] 2023-01-20 00:00:00 2023-01-20 00:00:00 Outpatient GC_BAHC_Tod d_J PRIV PRIV [id number] [facility] 2022-12-29 00:00:00 2022-12-29 00:00:00 LANDON Sullivan: [address] [place] [phone] , Ph. [facility] [id number] [facility] 2022-12-19 00:00:00 2022-12-19 00:00:00 Outpatient GC_BAHC_Tod d_J PRIV PRIV [id number] [facility] 2022-12-19 00:00:00 2022-12-19 00:00:00 Outpatient GC_BAHC_Tod d_J PRIV PRIV [id number] [facility] 2022-12-18 00:00:00 2022-12-18 00:00:00 Outpatient GC_BAHC_Tod d_J PRIV PRIV [id number] [facility] 2022-12-15 00:00:00 2022-12-15 00:00:00 Randi Parsons PA: [address] [place] [phone] , Ph. [facility] [id number] [facility] 2022-11-24 00:00:00 2022-11-24 00:00:00 LANDON Sullivan: [address] [place] [phone] , Ph. [facility] - [facility] [id number] [facility] 2022-10-30 00:00:00 2022-10-30 00:00:00 Outpatient GC_BAHC_Tod d_J PRIV PRIV [id number] [facility] 2022-10-30 00:00:00 2022-10-30 00:00:00 Outpatient GC_BAHC_Tod d_J PRIV PRIV [id number] [facility] 2022-10-30 00:00:00 2022-10-30 00:00:00 Outpatient GC_BAHC_Tod d_J PRIV PRIV [id number] [facility] 2022-10-29 00:00:00 2022-10-29 00:00:00 Outpatient GC_BAHC_Tod d_J PRIV PRIV [id number] [facility] 2022-10-29 00:00:00 2022-10-29 00:00:00 Outpatient GC_BAHC_Tod d_J [facility] PRIV [id number] [facility] 2022-10-16 00:00:00 2022-10-16 00:00:00 LANDON Sullivan: [address] [place] [phone] , Ph. [facility] [id number] [facility] 2022-10-09 00:00:00 2022-10-09 00:00:00 LANDON Sullivan: [address] [place] [phone] , Ph. [facility] - [facility] [id number] [facility] 2022-10-03 00:00:00 2022-10-03 00:00:00 Outpatient GC_BAHC_Tod d_J PRIV PRIV [id number] [facility] 2022-10-03 00:00:00 2022-10-03 00:00:00 Outpatient GC_BAHC_Tod d_J PRIV PRIV [id number] [facility] 2022-10-03 00:00:00 2022-10-03 00:00:00 Outpatient GC_BAHC_Tod d_J PRIV PRIV [id number] [facility] 2022-10-03 00:00:00 2022-10-03 00:00:00 Outpatient GC_BAHC_Tod d_J PRIV PRIV [id number] [facility] 2022-10-03 00:00:00 2022-10-03 00:00:00 Outpatient GC_BAHC_Tod d_J PRIV PRIV [id number] [facility] 2022-10-03 00:00:00 2022-10-03 00:00:00 Outpatient GC_BAHC_Tod d_J PRIV PRIV [id number] [facility] 2022-09-29 00:00:00 2022-09-29 00:00:00 Outpatient GC_BAHC_Tod d_J PRIV PRIV [id number] [facility] 2022-09-29 00:00:00 2022-09-29 00:00:00 Outpatient GC_BAHC_Tod d_J PRIV PRIV [id number] [facility] 2022-09-29 00:00:00 2022-09-29 00:00:00 Outpatient GC_BAHC_Tod d_J PRIV PRIV [id number] [facility] 2022-09-29 00:00:00 2022-09-29 00:00:00 Pino Almeida MD: [address] [place] [id number] , Ph. [facility] GC_BAHC_[facility] [id number] [facility] 2022-09-22 00:00:00 2022-09-22 00:00:00 Randi Parsons PA: [address] [place] [phone] , Ph. [facility] GC_[facility] [id number] [facility] 2022-09-21 00:00:00 2022-09-21 00:00:00 Outpatient GC_BAHC_Tod d_J PRIV PRIV [id number] [facility] 2022-09-20 00:00:00 2022-09-20 00:00:00 Outpatient GC_BAHC_Tod d_J PRIV PRIV [id number] [facility] 2022-09-15 00:00:00 2022-09-15 00:00:00 LANDON Sullivan: [address] [place] [id number] , Ph. [facility] GC_BA[facility] [id number] [facility] 2022-09-09 00:00:00 2022-09-09 00:00:00 Outpatient GC_BAHC_Tod d_J [facility] PRIV [id number] [facility] 2022-09-08 00:00:00 2022-09-08 00:00:00 LANDON Sullivan: [address] [place] [id number] , Ph. [facility] GC_BAHC_[facility] [id number] [facility] Medical Results Test Description Test Time Test Comments Results Result Co mments Source TSH, THIRD [id number] 04:48:56* Test Item Value Reference Range Interpretation Comme nts TSH, THIRD GENERATION (test code = 2821) 0.698 UIU/ML 0.400-4.100 PSA, [id number] 04:48:56* Test Item Value Reference Range Interpretation Comme nts PSA, TOTAL (test code = 2606) 2.51 NG/ML See_Comment NOTE: Methodolog y is Zuleika Jayashree Electrochemiluminescence Immunoassay traceable to WHO reference standard 96/760. UNLESS OTHERWISE INDICATED, ALL TESTING PERFORMED [facility] [email or web address] [employer] [address] [place] [id number] MOTTLER OPERATOR: KODI TRIANA M.D. CLIA NUMBER [id number] [place]. [id number] [Automated message] The system which generated this result transmitted reference range: <=4.00. The reference range was not used to interpret this result as normal/abnormal. LIPID [id number] 04:23:44* Test Item Value Reference Range Interpretation Comme nts CHOLESTEROL (test code = 2210) 199 MG/DL <200 TRIGLYCERIDES (test code = 2232) 136 MG/DL <150 HDL CHOLESTEROL (test code = 2220) 45 MG/DL >39 CALC LDL CHOL (test code = 2236) 129 MG/DL <100 H NOTE: CALCULATED LDL IS BASED ON CLAIR-MOSER METHOD WHICHINCLUDES ADJUSTABLE TRIGLYCERIDE:VLDL CHOLESTEROL RATIO.THIS FACTOR VARIES BY MEASURED TRIGLYCERIDE AND NON-HDLCHOLESTEROL CONCENTRATIONS WITH INCREASED CALCULATED LDL SEENIN HIGHER TRIGLYCERIDE OR LOWER NON-HDL SPECIMENS. FOR MOREINFORMATION, SEE CLIENT ANNOUNCEMENT AT [email or web address] RISK RATIO LDL/HDL (test code = 2238) 2.87 RATIO <3.55 COMPREHENSIVE METABOLIC [id number] 04:23:44* Test Item Value Reference Range Interpretation Comme nts GLUCOSE (test code = 2217) 89 MG/DL 70-99 BUN (test code = 220) 14 MG/DL 8-23 CREATININE (test code = 2214) 0.85 MG/DL 0.80-1.40 eGFR (2020 CKD-EPI) (test code = 88327) 93 ML/MIN/1.73 >60 CALC BUN/CREAT (test code = 2235) 16 RATIO 6-28 SODIUM (test code = 223) 147 MEQ/L 133-146 H POTASSIUM (test code = 2228) 4.2 MEQ/L 3.5-5.4 CHLORIDE (test code = 2215) 107 MEQ/L 95-107 CARBON DIOXIDE (test code = 2206) 28 MEQ/L 19-31 CALCIUM (test code = 2209) 9.9 MG/DL 8.5-10.5 PROTEIN, TOTAL (test code = 2228) 8.0 G/DL 6.1-8.3 ALBUMIN (test code = 2200) 4.7 G/DL 3.5-5.2 CALC GLOBULIN (test code = 0) 3.3 G/DL 1.9-3.7 CALC A/G RATIO (test code = 2233) 1.4 RATIO 1.0-2.6 BILIRUBIN, TOTAL (test code = 2206) 0.9 MG/DL See_Comment [Automated me ssage] The system which generated this result transmitted reference range: <=1.2. The reference range was not used to interpret this result as normal/abnormal. ALKALINE PHOSPHATASE (test code = 2203) 94 U/L 40-125 AST (test code = 2217) 21 U/L 9-50 ALT (test code = 2218) 19 U/L 5-50 HEMOGLOBIN [id number] 03:10:09* Test Item Value Reference Range Interpretation Comme nts HEMOGLOBIN A1c (test code = 43714) 5.5 % 4.2-5.6 CBC W/AUTO DIFF WITH [id number] 01:57:11* Test Item Value Reference Range Interpretation Comme nts WBC (test code = 1001) 8.0 K/UL 3.5-11.0 RBC (test code = 1002) 5.18 M/UL 4.50-6.10 HEMOGLOBIN (test code = 1003) 16.3 G/DL 13.5-17.0 HEMATOCRIT (test code = 1004) 49.1 % 40.0-51.0 MCV (test code = 1005) 94.8 fL 80.0-99.0 MCH (test code = 1006) 31.5 PG 25.0-33.0 MCHC (test code = 1007) 33.2 G/DL 31.0-36.0 RDW (test code = 1038) 14.8 % 11.5-15.0 NEUTROPHILS (test code = 1008) 66.4 % LYMPHOCYTES (test code = 1010) 23.0 % MONOCYTES (test code = 1011) 8.4 % EOSINOPHILS (test code = 1012) 1.4 % BASOPHILS (test code = 1013) 0.6 % IMMATURE GRANULOCYTES (test code = 1036) 0.2 % NUCLEATED RBCS (test code = 1065) 0.0 /100 WBC'S See_Comment [Automated messa ge] The system which generated this result transmitted reference range: 0.0. The reference range was not used to interpret this result as normal/abnormal. PLATELET COUNT (test code = 1015) 264 K/UL 130-400 ABSOLUTE NEUTROPHILS (test code = 1066) 5.32 K/UL 1.50-7.50 ABSOLUTE LYMPHOCYTES (test code = 1067) 1.84 K/UL 1.00-4.00 ABSOLUTE MONOCYTES (test code = 1068) 0.67 K/UL 0.20-1.00 ABSOLUTE EOSINOPHILS (test code = 1040) 0.11 K/UL 0.00-0.50 ABSOLUTE BASOPHILS (test code = 1069) 0.05 K/UL 0.00-0.20 ABS IMMATURE GRANULOCYTES (test code = 1020) 0.02 K/UL 0.00-0.10 ABS NUCLEATED RBCS (test code = 66061) 0.00 K/UL 0.00-0.11
[2023-10-27] MEDS ORDERED: FOLIC ACID 5 MG/ML VIAL ONE (12:36)
[2023-10-27] MEDS ORDERED: CEFTRIAXONE 1000 MG/VIAL ONE (12:36)
[2023-10-27] MEDS ORDERED: NA CHLORIDE 0.9% 1,000 ML ONE (12:37)
[2023-10-27 12:45] LABS: Absolute Lymphocytes (CBC) 1.6 K/uL (0.7-4.9); Hematocrit 48.2 % (39.6-49.0); MCV 97.8 fL (80-100); MPV 10.2 fL (7.6-11.3); Platelets 393 thou/uL (152-406); RBC Red Blood Cell Count 4.93 M/uL (4.33-5.43)
--- NOTE | 2023-10-27 12:46 | RAD REPORT ---
EXAM DESCRIPTION: CT - Head Brain Wo Cont - 10/27/2023 12:35 pm CLINICAL HISTORY: MENTAL STATUS CHANGE Headache, drowsiness COMPARISON: Head Brain Wo Cont dated 04/30/2023; Head Brain Wo Cont dated 04/16/2023 TECHNIQUE: All CT scans are performed using dose optimization technique as appropriate and may inclu de automated exposure control or mA/KV adjustment according to patient size. FINDINGS: Motion degradation is present, limiting quality of the study. No intracranial hemorrhage, hydrocephalus or extra-axial fluid collection.Moderate generalized brain atrophy is present with mild periventricular and deep white matter chronic microvascular ischemic changes.No areas of brain edema or evidence of midline shift. Vertebral atherosclerosis. The paranasal sinuses and mastoids are clear. The calvarium is intact. IMPRESSION: No acute intracranial abnormality. Study is limited by motion artifact.
--- NOTE | 2023-10-27 12:49 | RAD REPORT ---
EXAM DESCRIPTION: RAD - Chest Single View - 10/27/2023 12:41 pm CLINICAL HISTORY: COUGH Chest pain. COMPARISON: <Comparisons> FINDINGS: Portable technique limits examination quality. The lungs are grossly clear. The heart is normal in size. No displaced fractures. IMPRESSION: No acute intrathoracic process suspected.
[2023-10-27 12:50] LABS: Protime INR 2.01
[2023-10-27 13:07] LABS: Albumin 2.8 g/dL (3.4-5.0); Bilirubin Direct 0.2 mg/dL (0-0.2); Bilirubin Indirect, Calculated 0.4 mg/dL (0.2-0.8); Bilirubin Total 0.6 mg/dL (0.2-1.0); Magnesium 3.1 mg/dL (1.6-2.4); Potassium 3.8 mEq/L (3.5-5.1); Protein, Total 8.8 g/dL (6.4-8.2); Troponin High Sensitivity 92.3 pg/mL (<58.9)
[2023-10-27 13:29] LABS: SARS-COV-2 RT PCR POSITIVE (NEGATIVE)
[2023-10-27] MEDS ORDERED: LORazepam 2 MG/ML VIAL ONE (13:38)
--- NOTE | 2023-10-27 13:52 | ER ---
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 they were toned out for AMS, kc6 hypotension, and hypoxia. shelter states pt has become more confused since testing positive for covid 9 days ago. Coronavirus screen: At this time, the client does not indicate any symptoms associated with coronavirus-19. Ebola Screen: No symptoms or risks identified at this time. Initial Sepsis Screen: Does the patient meet any 2 criteria? Altered Mental Status. Does the patient have a suspected source of infection? No. Patient's initial sepsis screen is negative. Risk Assessment: Do you want to hurt yourself or someone else? Patient reports no desire to harm self or others. Onset of symptoms was October 27, 2023. 12:05 Method Of Arrival: EMS: [facility] kc6 12:05 Acuity: SALOMON 2 hb Triage Assessment: 12:07 General: Appears in no apparent distress. comfortable, well groomed, well developed, kc6 Behavior is calm, cooperative, appropriate for age. Pain: Unable to use pain scale. Patient is disoriented. EENT: No signs and/or symptoms were reported regarding the EENT system. Neuro: Level of Consciousness is awake, alert, obeys commands, Oriented to person, Appropriate for age. Cardiovascular: Denies chest pain, Heart tones S1 S2 present Capillary refill < 3 seconds Rhythm is atrial fibrillation with rapid ventricular response. Respiratory: Airway is patent Trachea midline Respiratory effort is even, unlabored, Respiratory pattern is regular, symmetrical. GI: No signs and/or symptoms were reported involving the gastrointestinal system. : No signs and/or symptoms were reported regarding the genitourinary system. Derm: No signs and/or symptoms reported regarding the dermatologic system. Skin is intact, is healthy with good turgor, Skin is pink, warm \T\ dry. Musculoskeletal: No signs and/or symptoms reported regarding the musculoskeletal system. Circulation, motion, and sensation intact. Capillary refill < 3 seconds, Range of motion: intact in all extremities. Historical: - Allergies: 12:07 Zofran; kc6 - PMHx: 12:07 Alzheimer's disease; Asthma; Atrial fibrillation; GERD; osteoarthritis; syncope; TIA; kc6 - Immunization history:: Adult Immunizations up to date. - Social history:: Smoking status: Patient denies any tobacco usage or history of. - Family history:: not pertinent. Screenin:09 [facility] ED Fall Risk Assessment (Adult) History of falling in the last 3 months, kc6 including since admission No falls in past 3 months (0 pts) Confusion or Disorientation Yes (5 pts) Intoxicated or Sedated No (0 pts) Impaired Gait Yes (1 pt) Mobility Assist Device Used Yes (1 pt) Altered Elimination No (0 pt) Score/Fall Risk Level 3 or more points = High Risk. Abuse screen: Denies threats or abuse. Denies injuries from another. Nutritional screening: No deficits noted. Tuberculosis screening: No symptoms or risk factors identified. Assessment: 12:09 Reassessment: please see triage assessment. kc6 12:51 Reassessment: Patient appears in no apparent distress at this time. No changes from kc6 previously documented assessment. Patient and/or family updated on plan of care and expected duration. Pain level reassessed. 13:51 Reassessment: Patient appears in no apparent distress at this time. No changes from kc6 previously documented assessment. Patient and/or family updated on plan of care and expected duration. Pain level reassessed. 14:51 Reassessment: Patient appears in no apparent distress at this time. No changes from kc6 previously documented assessment. Patient and/or family updated on plan of care and expected duration. Pain level reassessed. 15:51 Reassessment: Patient appears in no apparent distress at this time. No changes from kc6 previously documented assessment. Patient and/or family updated on plan of care and expected duration. Pain level reassessed. Vital Signs: 12:05 BP 122 / 62; Pulse 99; Resp 16 S; Pulse Ox 100% on R/A; kc6 12:51 BP 132 / 88; Pulse 102; Resp 19 S; Pulse Ox 94% on R/A; kc6 13:36 Temp 98.7(R); kc6 15:55 BP 121 / 89; Pulse 98; Resp 20 S; Pulse Ox 98% on 2 lpm NC; kc6 ED Course: 11:45 Straight cath inserted, using sterile technique, 16 Fr. Specimen obtained. Returned kc6 clear yellow urine. Patient tolerated poorly. 12:05 Patient arrived in ED. kc6 12:06 Leopoldo Jones MD is Attending Physician. duane 12:07 Triage completed. kc6 12:07 Arm band placed on. kc6 12:08 Patient maintains SpO2 saturation greater than 95% on room air. kc6 12:09 Patient has correct armband on for positive identification. Placed in gown. Bed in low kc6 position. Call light in reach. Side rails up X2. Client placed on continuous cardiac and pulse oximetry monitoring. NIBP monitoring applied. color television console monitor on. 12:10 Ana Myers RN is Primary Nurse. kc6 12:30 IV discontinued, intact, bleeding controlled, No redness/swelling at site. Pressure kc6 dressing applied, pt appears to have pulled out his 20G in the RAC. 12:34 Inserted saline lock: 20 gauge in right antecubital area, using aseptic technique. kc6 Blood collected. 12:35 CT Head Brain wo Cont In Process Unspecified. EDMS 12:42 XRAY Chest (1 view) In Process Unspecified. EDMS 13:12 Notified ED physician of a critical lab result(s). Elevated troponin and elevated hb sodium. 13:50 Alexi Suazo MD is Hospitalizing Provider. udane 15:25 Michaels cath inserted, using sterile technique, 16 Fr., by ED staff, balloon inflated, to kc6 gravity drainage, clamped. returned clear yellow urine. Patient tolerated well. 22:25 No provider procedures requiring assistance completed. vc1 Administered Medications: 12:47 Drug: NS 0.9% IV 1000 ml IV at 1 bolus Per protocol; 1000 mL bolus Route: IV; Rate: 1 kc6 bolus; Site: right antecubital; 15:56 Follow up: Response: No adverse reaction; IV Status: Completed infusion; IV Intake: kc6 500ml 12:47 Drug: foLIC Acid IVPB 1 mg IVPB once Route: IVPB; Site: right antecubital; kc6 15:56 Follow up: Response: No adverse reaction; IV Status: Completed infusion; IV Intake: kc6 0.2ml 12:47 Drug: Rocephin IV 1 grams IV at per protocol once; Given slow IV push per pharmacy kc6 instructions Route: IV; Rate: per protocol; Site: right antecubital; 15:56 Follow up: Response: No adverse reaction; IV Status: Completed infusion; IV Intake: 01fnve2 13:46 Drug: LORazepam IM 2 mg IM once Route: IM; Site: right deltoid; kc6 14:13 Follow up: Response: No adverse reaction; Anxiety decreased; RASS: Drowsy (-1) kc6 14:13 Drug: NS 0.9% IV 1000 ml IV at 1 bolus Per protocol; 1000 mL bolus Route: IV; Rate: 1 kc6 bolus; Site: left forearm; 14:13 Drug: NS 0.9% IV 500 ml IV at bolus once Route: IV; Rate: bolus; Site: left forearm; kc6 15:57 Follow up: Response: No adverse reaction; IV Status: Completed infusion; IV Intake: kc6 500ml 14:13 Drug: NS 0.9% IV 1000 ml IV at 125 ml/hr continuous Route: IV; Rate: 125 ml/hr; Site: kc6 left forearm; 15:56 Follow up: Response: No adverse reaction; IV Status: Infusion continued upon admission; kc6 IV Intake: 1000ml 14:55 Drug: Geodon IM 20 mg IM once Route: IM; Site: left deltoid; kc6 15:57 Follow up: Response: No adverse reaction; Anxiety decreased; RASS: Drowsy (-1) kc6 Medication: 22:27 VIS not applicable for this client. vc1 Intake: 15:56 IV: 500ml; Total: 500ml. kc6 15:56 IV: 0ml; Total: 500ml. kc6 15:56 IV: 10ml; Total: 510ml. kc6 15:56 IV: 1000ml; Total: 1510ml. kc6 15:57 IV: 500ml; Total: 2010ml. kc6 Outcome: 13:51 Decision to Hospitalize by Provider. duane 22:25 Condition: stable vc1 22:26 Admitted to Tele accompanied by tech, via stretcher, room 417, with chart, vc1 22:26 Instructed on the need for admit, 22:27 Patient left the ED. vc1 Signatures: Dispatcher [employer] Leopoldo Amor MD MD cha Baxter Lucia, RN RN hb Kaylee Harrison RN RN vc1 Ana Myesr RN RN kc6 Corrections: (The following items were deleted from the chart) 12:11 12:05 Acuity: SALOMON 3 kc6 hb
--- NOTE | 2023-10-27 13:52 | EDPHYS ---
Physician Documentation [facility] Name: Donald Herron Age: 73 yrs Sex: Male : 1950 Arrival Date: 10/27/2023 Time: 11:58 Bed 17 Private MD: ED Physician Leopoldo Jones HPI: 10/27 13:39 This 73 yrs old Male presents to ER via EMS with complaints of Altered Mental duane Status. 13:39 The patient presents with confusion, decreased responsiveness. Onset: The duane symptoms/episode began/occurred 10 day(s) ago. Possible causes: CVA or TIA, head injury, low blood sugar. Associated signs and symptoms: Pertinent positives: confusion, dizziness. Current symptoms: In the emergency department the patient's symptoms are unchanged from the initial presentation, despite home interventions. Patient's baseline: Neuro: alert and fully oriented, Motor: no deficits, Ambulation: unable to walk. It is unknown whether or not the patient has had similar symptoms in the past. Historical: - Allergies: 12:07 Zofran; kc6 - PMHx: 12:07 Alzheimer's disease; Asthma; Atrial fibrillation; GERD; osteoarthritis; syncope; TIA; kc6 - Immunization history:: Adult Immunizations up to date. - Social history:: Smoking status: Patient denies any tobacco usage or history of. - Family history:: not pertinent. ROS: 13:39 Constitutional: Negative for fever, chills, and weight loss, Eyes: Negative for injury, duane pain, redness, and discharge, ENT: Negative for injury, pain, and discharge, Neck: Negative for injury, pain, and swelling, Respiratory: Negative for shortness of breath, cough, wheezing, and pleuritic chest pain, Abdomen/GI: Negative for abdominal pain, nausea, vomiting, diarrhea, and constipation, Back: Negative for injury and pain, : Negative for injury, bleeding, discharge, and swelling, MS/Extremity: Negative for injury and deformity, Skin: Negative for injury, rash, and discoloration, Psych: Negative for depression, anxiety, suicide ideation, homicidal ideation, and hallucinations, Allergy/Immunology: Negative for hives, rash, and allergies, Endocrine: Negative for neck swelling, polydipsia, polyuria, polyphagia, and marked weight changes, 13:39 Neuro: Positive for altered mental status, weakness, Exam: 13:39 Constitutional: The patient appears frail, duane 13:39 Chest/axilla: Inspection: normal, 13:39 Cardiovascular: Rate: tachycardic, actual rate is 102 bpm, Rhythm: irregularly irregular, Pulses: Pulses are 4+ in bilateral radial, brachial, femoral, popliteal, posterior tibial and and dorsalis pedis arteries.. Heart sounds: normal, Edema: is not appreciated, JVD: is not appreciated, 13:39 ECG was reviewed by the Attending Physician. Vital Signs: 12:05 BP 122 / 62; Pulse 99; Resp 16 S; Pulse Ox 100% on R/A; kc6 12:51 BP 132 / 88; Pulse 102; Resp 19 S; Pulse Ox 94% on R/A; kc6 13:36 Temp 98.7(R); kc6 15:55 BP 121 / 89; Pulse 98; Resp 20 S; Pulse Ox 98% on 2 lpm NC; kc6 MDM: 12:06 Patient medically screened. duane 13:45 Differential Diagnosis: CVA, electrolyte abnormality, hypoglycemia, intracranial bleed, duane meningitis, pneumonia, seizure, sepsis, TIA, UTI, volume depletion. Data reviewed: vital signs, nurses notes, EMS record, lab test result(s), EKG, radiologic studies, CT scan, plain films. Consideration of Admission/Observation Patient was admitted/placed on observation. Escalation of care including admission/observation considered. I considered the following discharge prescriptions or medication management in the emergency department Medications were administered in the Emergency Department. See MAR. Independent interpretation of the following test(s) in the Emergency Department EKG: See my EKG interpretation above. Test considered but Not performed: MRI: no mri brain. Care significantly affected by the following chronic conditions: Hypertension, a fib, asthma, syncope, gerd, tia. Counseling: I had a detailed discussion with the patient and/or guardian regarding the historical points, exam findings, and any diagnostic results supporting the discharge/admit diagnosis, lab results, radiology results, the need for further work-up and treatment in the hospital. 10/27 12:08 Order name: Basic Metabolic Panel; Complete Time: 13:35 duane 10/27 12:08 Order name: CBC with Diff; Complete Time: 13:35 duane 10/27 12:08 Order name: LFT's; Complete Time: 13:35 duane 10/27 12:08 Order name: Magnesium; Complete Time: 13:35 duane 10/27 12:08 Order name: NT PRO-BNP; Complete Time: 13:35 duane 10/27 12:08 Order name: PT-INR; Complete Time: 13:35 [facility] 10/27 12:08 Order name: Troponin HS; Complete Time: 13:35 duane 10/27 12:08 Order name: Lipase; Complete Time: 13:35 [facility] 10/27 12:08 Order name: Urinalysis w/ reflexes; Complete Time: 16:55 [facility] 10/27 12:08 Order name: COVID-19/FLU A+B/RSV; Complete Time: 13:35 [facility] 10/27 12:08 Order name: Blood Culture Adult (2) [facility] 10/27 12:08 Order name: Lactate w/ 2H reflex if indic.; Complete Time: 13:35 [facility] 10/27 13:31 Order name: Depakote; Complete Time: 16:55 10/27 14:10 Order name: Urine Osmolality; Complete Time: 16:55 [facility] 10/27 14:10 Order name: Urine Sodium Random; Complete Time: 16:55 [facility] 10/27 14:10 Order name: Osmolality, Serum; Complete Time: 16:55 [facility] 10/27 17:12 Order name: Hemoglobin A1c [facility] 10/27 18:36 Order name: Lactate Sepsis 2 HR Follow-up EDTN 10/27 18:39 Order name: Basic Metabolic Panel [facility] 10/27 18:39 Order name: Troponin High Sensitivity [facility] 10/27 21:51 Order name: Troponin High Sensitivity [facility] 10/27 12:08 Order name: XRAY Chest (1 view); Complete Time: 13:35 [facility] 10/27 12:08 Order name: CT Head Brain wo Cont; Complete Time: 13:35 [facility] 10/27 14:11 Order name: Renal Ultrasound-Complete; Complete Time: 16:55 [facility] 10/27 12:08 Order name: EKG; Complete Time: 12:09 [facility] 10/27 12:08 Order name: Cardiac monitoring; Complete Time: 12:10 [facility] 10/27 12:08 Order name: EKG - Nurse/Tech; Complete Time: 12:34 [facility] 10/27 12:08 Order name: IV Saline Lock; Complete Time: 12:34 [facility] 10/27 12:08 Order name: Labs collected and sent; Complete Time: 12:34 duane 10/27 12:08 Order name: O2 Per Protocol; Complete Time: 12:10 [facility] 10/27 12:08 Order name: O2 Sat Monitoring; Complete Time: 12:10 [facility] 10/27 13:51 Order name: Michaels; Complete Time: 15:27 [facility] EC:39 Rate is 104 beats/min. Rhythm is irregularly irregular. QRS [place] is Normal. [place] interval duane is normal. QRS interval is normal. QT interval is normal. No Q waves. T waves are Normal. No ST changes noted. Clinical impression: Atrial Fibrillation and No evidence of ischemia. Interpreted by me. Reviewed by me. Administered Medications: 12:47 Drug: NS 0.9% IV 1000 ml IV at 1 bolus Per protocol; 1000 mL bolus Route: IV; Rate: 1 kc6 bolus; Site: right antecubital; 15:56 Follow up: Response: No adverse reaction; IV Status: Completed infusion; IV Intake: kc6 500ml 12:47 Drug: foLIC Acid IVPB 1 mg IVPB once Route: IVPB; Site: right antecubital; kc6 15:56 Follow up: Response: No adverse reaction; IV Status: Completed infusion; IV Intake: kc6 0.2ml 12:47 Drug: Rocephin IV 1 grams IV at per protocol once; Given slow IV push per pharmacy kc6 instructions Route: IV; Rate: per protocol; Site: right antecubital; 15:56 Follow up: Response: No adverse reaction; IV Status: Completed infusion; IV Intake: [id number] 13:46 Drug: LORazepam IM 2 mg IM once Route: IM; Site: right deltoid; kc6 14:13 Follow up: Response: No adverse reaction; Anxiety decreased; RASS: Drowsy (-1) kc6 14:13 Drug: NS 0.9% IV 1000 ml IV at 1 bolus Per protocol; 1000 mL bolus Route: IV; Rate: 1 kc6 bolus; Site: left forearm; 14:13 Drug: NS 0.9% IV 500 ml IV at bolus once Route: IV; Rate: bolus; Site: left forearm; kc6 15:57 Follow up: Response: No adverse reaction; IV Status: Completed infusion; IV Intake: kc6 500ml 14:13 Drug: NS 0.9% IV 1000 ml IV at 125 ml/hr continuous Route: IV; Rate: 125 ml/hr; Site: kc6 left forearm; 15:56 Follow up: Response: No adverse reaction; IV Status: Infusion continued upon admission; kc6 IV Intake: 1000ml 14:55 Drug: Geodon IM 20 mg IM once Route: IM; Site: left deltoid; kc6 15:57 Follow up: Response: No adverse reaction; Anxiety decreased; RASS: Drowsy (-1) kc6 Disposition Summary: 10/27/23 13:51 Hospitalization Ordered Notes: Hospitalization Status: Inpatient Admission duane Provider: Alexi Suazo cha Condition: Fair duane Problem: new duane Symptoms: have improved duane Bed/Room Type: Standard duane Location: Telemetry/MedSurg (Inpatient)(10/27/23 21:11) cg Room Assignment: [facility](10/27/23 21:11) Diagnosis - Dehydration duane - Acute kidney failure, unspecified duane - SARS-associated coronavirus as the cause of diseases classified elsewhere duane - Chronic atrial fibrillation 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 EDTN EDMS 16:45 13:51 Telemetry/MedSurg (Inpatient) duane ll1 16:45 13:51 duane ll1 21:11 16:45 [facility] ER HOLD ll1 cg 21:11 16:45 ERHOLD- ll1 cg
[2023-10-27 13:53] LABS: Specific Gravity 1.029 (1.005-1.030); Urine Bacteria None Seen /HPF (<20); Urine Bilirubin NEGATIVE (Negative); Urine Blood Negative (Negative); Urine Clarity Turbid (Clear); Urine Color Yellow (Yellow); Urine Glucose NEGATIVE (Negative); Urine Mucus Slight /HPF (None Seen); Urine Protein TRACE (Negative); Urine RBC <5 /HPF (None Seen); Urine Urobilinogen 1+ (Normal)
[2023-10-27] MEDS ORDERED: NA CHLORIDE 0.9% 500 ML ONE (14:02)
[2023-10-27] MEDS ORDERED: NA CHLORIDE 0.9% 2,000 ML ONE (14:02)
--- NOTE | 2023-10-27 14:29 | P.HP ---
Certification for Inpatient Patient admitted to: Inpatient With expected LOS: >2 Midnights Patient will require the following post-hospital care: None Practitioner: I am a practitioner with admitting privileges, knowledge of patient current condition, hospital course, and medical plan of care. Services: Services provided to patient in accordance with Admission requirements found in Title 42 Section 412.3 of the Code of Federal Regulations Patient History Date of Service: 10/27/23 Reason for admission: Hypernatremia, AMS History of Present Illness: 73-year-old male with history of hypertension, hyperlipidemia, atrial fibrillation on chronic anticoagulation, dementia, asthma/COPD presents to the emergency department from [facility] with chief complaint of altered mental status. He was reportedly diagnosed with COVID approximately 9 days prior to admission to the hospital and has been developing altered mental status over the course of the last few days. Patient is currently oriented x 1, confused. He does admit to poor oral intake but cannot say for how long or why. He was evaluated in the emergency department his labs were significant for a white blood cell count of 15 INR 2.01 sodium 165 chloride 131 creatinine 1.78 GFR 40 glucose 172 lactic acid 3.6 high since he troponin 92.3 BNP 1432 UA not suggestive of urinary tract infection Depakote level is 34.4 still swabbing positive for COVID currently on PCR test. CT head was negative for acute findings as well as a chest x-ray. Renal ultrasound was ordered and pending. In the emergency department patient received 2.5 L NS bolus, Ativan 2 mg IM for agitation, Rocephin 1 g IV. Patient be admitted for further evaluation of metabolic encephalopathy, hypernatremia. Allergies No Known Allergies Allergy (Unverified 04/16/23 22:15) Home Medications: Acetaminophen with Codeine [Acetaminophen-Cod #3 Tablet] 1 tab PO SEECOM PRN 04/17/23 Amlodipine [Norvasc*] 5 mg PO DAILY 04/17/23 Apixaban [Eliquis] 5 mg PO BID 04/17/23 Aspirin [Aspirin EC 81 MG] 81 mg PO DAILY 04/17/23 Atorvastatin Calcium 40 mg PO BEDTIME 04/17/23 Cefdinir [Cefdinir*] 300 mg PO BID #14 cap 04/17/23 Divalproex ER [Depakote *ER] 250 mg PO BID 04/17/23 Divalproex Sodium [Depakote] 125 mg PO BID 04/17/23 Ergocalciferol (Vitamin D2) [Vitamin D2] 1 cap PO DAILY 04/17/23 Rivastigmine Tartrate [Rivastigmine] 1.5 mg PO BID 04/17/23 - Past Medical/Surgical History -: TIA -: Atrial fibrillation -: Dementia -: Hypertension -: Hyperlipidemia Past Surgical History: Unable to obtain Psychosocial/ Personal History: Resident of [facility] - Family History Father History Unknown: Yes - Social History Smoking Status: Unknown if ever smoked Alcohol use: No CD- Drugs: No Caffeine use: No Place of Residence: [facility] Review of Systems is unable to be obtained Physical Examination - Physical Exam General: Alert, Oriented x1, Confused HEENT: Atraumatic Neck: Supple, 2+ carotid pulse no bruit Respiratory: Diminished Cardiovascular: No edema, Irregular heart rate/rhythm (A-fib rate 105) Gastrointestinal: Normal bowel sounds, No tenderness Musculoskeletal: No tenderness Integumentary: No rashes Neurological: Other (Confused, drowsy) - Studies Laboratory Data (last 24 hrs) 10/27/23 10/27/23 10/27/23 12:29 12:29 12:29 WBC 15.00 H Hgb 15.9 Hct 48.2 Plt Count 393 PT 21.7 H INR 2.01 Sodium 165 H* Potassium 3.8 BUN 71 H Creatinine 1.78 H Glucose 172 H Magnesium 3.1 H Total Bilirubin 0.6 AST 49 H ALT 40 Alkaline Phosphatase 99 Lipase 75 Assessment and Plan - Plan Assessment: Metabolic encephalopathy secondary to hypernatremia COVID-19 positive Atrial fibrillation with rapid ventricular response-ongoing chronic A-fib on chronic anticoagulation Elevated troponin Hypertension Hyperlipidemia Dementia History of asthma Plan: Metabolic encephalopathy secondary to hypernatremia Confused, oriented x 1 Does admit to poor oral intake recently but unsure for how long Sodium 165, sodium in the 140s mid 2022 Urine, serum osmolality levels as well as urine sodium levels ordered Michaels catheter in place, received 2.5 L NS in ED D5W at 75ml/hr an hour ordered Nephrology consultation, monitor chemistry with repeat tonight COVID-19 positive Reportedly completed course of Paxlovid On room air, no signs of pneumonia on chest x-ray Possibly contributing to encephalopathy/poor oral intake Atrial fibrillation with rapid ventricular response-ongoing chronic A-fib on chronic anticoagulation Continue carvedilol, Eliquis. Monitor on telemetry Elevated troponin Suspect demand ischemia, will trend troponin and monitor on telemetry If there is marked elevations in troponin or significant arrhythmia will consult cardiology Hypertension Hyperlipidemia Dementia History of asthma Continue home medications once verified DVT PPX: Continue Eliquis Code status: Full code Discharge Plan: [facility] Plan to discharge in: Greater than 2 days - Advance Directives Does patient have a Living Will: No Does patient have a Durable POA for Healthcare: No - Code Status/Comfort Care Code Status Assessed: Yes (Full code) Critical Care: No Time Spent Managing Pts Care (In Minutes): 70
[2023-10-27] MEDS ORDERED: ZIPRASIDONE MESYLA 20 MG/VIAL IM ONE (14:49)
[2023-10-27] MEDS ORDERED: WATER FOR INJ,STERILE 10 ML ONE (14:49)
--- NOTE | 2023-10-27 15:05 | RAD REPORT ---
EXAM DESCRIPTION: US - Renal Ultrasound-Complete - 10/27/2023 2:32 pm CLINICAL HISTORY: PAIN Flank pain COMPARISON: No comparisons FINDINGS: Both kidneys are normal in size, shape and echotexture. The right kidney measures 10.2 x 6.0 x 6.0 cm.. No hydronephrosis, focal mass or perinephric fluid. The left kidney measures 9.8 x 6.9 x 6.1 cm.. No hydronephrosis, focal mass or perinephric fluid. 29 x 23 mm cyst projects from the left kidney. The urinary bladder is incompletely distended and incompletely assessed. IMPRESSION: Patient was combative during the study, limiting quality of the images submitted. No hydronephrosis. 29 mm benign-appearing left renal cyst. No gross renal stones seen.
--- NOTE | 2023-10-27 16:05 | P.CNS ---
Date of Consult: 10/28/23 Reason for Consult: Hypernatremia/ DEBORAH Requesting Physician: Alexi Suazo Chief Complaint: Hypernatremia, AMS History of Present Illness: 73-year-old male with history of hypertension, hyperlipidemia, atrial fibrillation on chronic anticoagulation, dementia, asthma/COPD presents to the emergency department from [facility] with chief complaint of altered mental status. He was reportedly diagnosed with COVID approximately 9 days prior to admission to the hospital and has been developing altered mental status over the course of the last few days. Patient is currently oriented x 1, confused. He does admit to poor oral intake but cannot say for how long or why. He was evaluated in the emergency department his labs were significant for a white blood cell count of 15 INR 2.01 sodium 165 chloride 131 creatinine 1.78 GF R 40 glucose 172 lactic acid 3.6 high since he troponin 92.3 BNP 1432 UA not suggestive of urinary tract infection Depakote level is 34.4 still swabbing positive for COVID currently on PCR test. CT head was negative for acute findings as well as a chest x-ray. Renal ultrasound was ordered and pending. In the emergency department patient received 2.5 L NS bolus, Ativan 2 mg IM for agitation, Rocephin 1 g IV. Patient be admitted for further evaluation of metabolic encephalopathy, hypernatremia. [email or web address] 13:39 This 73 yrs old Male presents to ER via EMS with complaints of Altered Mental duane Status. 13:39 The patient presents with confusion, decreased responsiveness. Onset: The duane symptoms/episode began/occurred 10 day(s) ago. Possible causes: CVA or TIA, head injury, low blood sugar. Associated signs and symptoms: Pertinent positives: confusion, dizziness. Current symptoms: In the emergency department the patient's symptoms are unchanged from the initial presentation, despite home interventions. Patient's baseline: Neuro: alert and fully oriented, Motor: no deficits, Ambulation: unable to walk. It is unknown whether or not the patient has had similar symptoms in the past. Limited HPI/ ROS due to AMS Allergies ondansetron [From Zofran] Allergy (Verified 10/27/23 19:45) Hives/Rash Home medications list reviewed: Yes Home Medications: Acetaminophen with Codeine [Acetaminophen-Cod #3 Tablet] 1 tab PO Q8HP PRN 04/17/23 Apixaban [Eliquis] 5 mg PO BID 04/17/23 Aspirin [Aspirin EC 81 MG] 81 mg PO DAILY 04/17/23 Atorvastatin Calcium 40 mg PO BEDTIME 04/17/23 Divalproex ER [Depakote *ER] 250 mg PO BID 04/17/23 Divalproex Sodium [Depakote] 125 mg PO BID 04/17/23 Ergocalciferol (Vitamin D2) [Vitamin D2] 1 cap PO Q7D 04/17/23 Acetaminophen [Tylenol] 650 mg PO Q6HP PRN 10/27/23 Amlodipine [Norvasc] 10 mg PO DAILY 10/27/23 Ascorbic Acid [Vitamin C] 500 mg PO DAILY 10/27/23 Cholecalciferol (Vitamin D3) [Vitamin D 1000 Iu Tab] 1,000 unit PO DAILY 10/27/23 Fluticasone/Umeclidin/Vilanter [Trelegy Ellipta 200-62.5-25] 1 each IH DAILY 10/27/23 Lidocaine 4% Patch [Lidoderm 5% Patch] 1 patch TD DAILY 10/27/23 Zinc Gluconate [Zinc] 50 mg PO DAILY 10/27/23 carvediloL [Carvedilol] 6.25 mg PO BID 10/27/23 cloNIDine HCL [Clonidine HCl] 0.1 mg PO Q8HP PRN 10/27/23 - Past Medical/Surgical History Diabetic: No -: TIA -: Atrial fibrillation -: Dementia -: HTN -: HLD -: Hx DEBORAH (Dr. Whitley/ Dr. Monroy) Psychosocial/ Personal History: Resident [facility] - Family History Father History Unknown: Yes - Social History Smoking Status: Current every day smoker Alcohol use: No CD- Drugs: No Caffeine use: No Place of Residence: [facility] Review of Systems 10-point ROS is otherwise unremarkable General: Weakness, Malaise Neurological: Confusion Physical Examination General: Cooperative HEENT: Atraumatic Neck: Supple Respiratory: Clear to auscultation bilaterally Cardiovascular: No edema, Regular rate/rhythm Gastrointestinal: Soft and benign, Non-distended Musculoskeletal: No clubbing, No contractures Integumentary: No rashes, No cyanosis Laboratory Data (last 24 hrs) 10/27/23 10/27/23 10/27/23 12:29 12:29 12:29 WBC 15.00 H Hgb 15.9 Hct 48.2 Plt Count 393 PT 21.7 H INR 2.01 Sodium 165 H* Potassium 3.8 BUN 71 H Creatinine 1.78 H Glucose 172 H Magnesium 3.1 H Total Bilirubin 0.6 AST 49 H ALT 40 Alkaline Phosphatase 99 Lipase 75 Imagings Data: darrenrice EXAM DESCRIPTION: US - Renal Ultrasound-Complete - 10/27/2023 2:32 pm CLINICAL HISTORY: PAIN Flank pain COMPARISON: No comparisons FINDINGS: Both kidneys are normal in size, shape and echotexture. The right kidney measures 10.2 x 6.0 x 6.0 cm.. No hydronephrosis, focal mass or perinephric fluid. The left kidney measures 9.8 x 6.9 x 6.1 cm.. No hydronephrosis, focal mass or perinephric fluid. 29 x 23 mm cyst projects from the left kidney. The urinary bladder is incompletely distended and incompletely assessed. IMPRESSION: Patient was combative during the study, limiting quality of the images submitted. No hydronephrosis. 29 mm benign-appearing left renal cyst. No gross renal stones seen. darrenrice EXAM DESCRIPTION: RAD - Chest Single View - 10/27/2023 12:41 pm CLINICAL HISTORY: COUGH Chest pain. COMPARISON: <Comparisons> FINDINGS: Portable technique limits examination quality. The lungs are grossly clear. The heart is normal in size. No displaced fractures. IMPRESSION: No acute intrathoracic process suspected. [email or web address] EXAM DESCRIPTION: CT - Head Brain Wo Cont - 10/27/2023 12:35 pm CLINICAL HISTORY: MENTAL STATUS CHANGE Headache, drowsiness COMPARISON: Head Brain Wo Cont dated 04/30/2023; Head Brain Wo Cont dated 04/16/2023 TECHNIQUE: All CT scans are performed using dose optimization technique as appropriate and may include automated exposure control or mA/KV adjustment according to patient size. FINDINGS: Motion degradation is present, limiting quality of the study. No intracranial hemorrhage, hydrocephalus or extra-axial fluid collection. Moderate generalized brain atrophy is present with mild periventricular and deep white matter chronic microvascular ischemic changes. No areas of brain edema or evidence of midline shift. Vertebral atherosclerosis. The paranasal sinuses and mastoids are clear. The calvarium is intact. IMPRESSION: No acute intracranial abnormality. Study is limited by motion artifact. 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
[2023-10-27] MEDS ORDERED: ACETAMINOPHEN 500 MG TAB PO PRN (18:21)
[2023-10-27] MEDS ORDERED: D5W 1,000 ML IV SCH (18:21)
[2023-10-27 18:37] LABS: Potassium 3.6 mEq/L (3.5-5.1)
[2023-10-27 18:38] LABS: Troponin High Sensitivity 89.2 pg/mL (<58.9)
[2023-10-27 19:41] VITALS: BMI 21.6
[2023-10-27] MEDS: carvediloL 6.25 MG TAB PO SCH (20:00)
[2023-10-27] MEDS ORDERED: D5W 1,000 ML IV ONE (20:05)
[2023-10-27] MEDS: ATORVASTATIN 40 MG TAB PO SCH (21:00)
[2023-10-27] MEDS: APIXABAN 5 MG TABLET PO SCH (21:00)
[2023-10-28 06:51] LABS: Absolute Lymphocytes (CBC) 1.3 K/uL (0.7-4.9); Hematocrit 41.4 % (39.6-49.0); MCV 97.6 fL (80-100); MPV 10.5 fL (7.6-11.3); Platelets 323 thou/uL (152-406); RBC Red Blood Cell Count 4.24 M/uL (4.33-5.43)
[2023-10-28 07:25] LABS: Magnesium 2.7 mg/dL (1.6-2.4); Phosphorus 2.1 mg/dL (2.5-4.9); Potassium 3.3 mEq/L (3.5-5.1); Thyroid Stimulating Hormone 0.383 uIU/mL (0.358-3.740)
[2023-10-28] MEDS ORDERED: D5W 1,000 ML IV SCH (07:35)
[2023-10-28] MEDS: carvediloL 6.25 MG TAB PO SCH ×2 (08:00→17:00)
[2023-10-28] MEDS: DIVALPROEX ER 250 MG TAB PO SCH ×2 (09:00→20:07)
[2023-10-28] MEDS: ASPIRIN EC 81 MG TAB PO SCH (09:00)
[2023-10-28] MEDS: AMLODIPINE 10 MG TAB PO SCH (09:00)
[2023-10-28] MEDS: APIXABAN 5 MG TABLET PO SCH ×2 (09:00→20:07)
[2023-10-28] MEDS: DIVALPROEX NA 125 MG CAP PO SCH ×2 (09:00→20:07)
--- NOTE | 2023-10-28 09:34 | P.PN ---
Date of Service: 10/28/23 Subjective: Still confused No acute events overnight ROS: 10 point ROS as noted above, otherwise negative Physical exam GEN: Alert, confused, drowsy oriented x 1, NAD HEENT: Normal conjunctiva, sclera anicteric CV: Regular rate and rhythm, no edema Pulm: Nonlabored respirations on room air ABD: Soft, nontender, nondistended MSK: No joint tenderness Integumentary: No rashes Neuro: Drowsy, confused Vitals reviewed Assessment: Metabolic encephalopathy secondary to hypernatremia COVID-19 positive Atrial fibrillation with rapid ventricular response-ongoing chronic A-fib on chronic anticoagulation Elevated troponin Hypertension Hyperlipidemia Dementia History of asthma Plan: Metabolic encephalopathy secondary to hypernatremia Confused, oriented x 1 Does admit to poor oral intake recently but unsure for how long Sodium 166 today, sodium in the 140s mid [address], received 2.5 L NS in ED D5W at 75ml/hr an hour ordered Nephrology consultation, continue to trend chemistry COVID-19 positive Reportedly completed course of Paxlovid On room air, no signs of pneumonia on chest x-ray Possibly contributing to encephalopathy/poor oral intake Atrial fibrillation with rapid ventricular response-ongoing chronic A-fib on chronic anticoagulation Continue carvedilol, Eliquis. Monitor on telemetry Elevated troponin Suspect demand ischemia, troponin trended flat Monitor on telemetry Hypertension Hyperlipidemia Dementia History of asthma Continue home medications once verified DVT PPX: Continue Eliquis Code status: Full code Time Spent Managing Pts Care (In Minutes): 35
[2023-10-28 12:16] LABS: Potassium 3.2 mEq/L (3.5-5.1)
[2023-10-28] MEDS ORDERED: POTASSIUM PHOS 30 MM in NA CHLORIDE 0.9% 500 ML IV ONE (12:40)
[2023-10-28] MEDS: D5W 1,000 ML IV SCH ×2 (13:51→20:39)
[2023-10-28] MEDS: ATORVASTATIN 40 MG TAB PO SCH (20:07)
[2023-10-28] MEDS: ENSURE ENLIVE 237 ML CAN PO SCH (20:09)
[2023-10-28 20:34] LABS: Potassium 3.6 mEq/L (3.5-5.1)
[2023-10-29] MEDS: D5W 1,000 ML IV SCH ×4 (04:39→20:39)
[2023-10-29] MEDS: carvediloL 6.25 MG TAB PO SCH ×2 (08:00→17:00)
[2023-10-29] MEDS: ASPIRIN EC 81 MG TAB PO SCH (09:00)
[2023-10-29] MEDS: DIVALPROEX NA 125 MG CAP PO SCH ×2 (09:00→20:18)
[2023-10-29] MEDS: APIXABAN 5 MG TABLET PO SCH ×2 (09:00→20:18)
[2023-10-29] MEDS: AMLODIPINE 10 MG TAB PO SCH (09:00)
[2023-10-29] MEDS: DIVALPROEX ER 250 MG TAB PO SCH ×2 (09:00→20:18)
[2023-10-29] MEDS: ENSURE ENLIVE 237 ML CAN PO SCH ×2 (09:00→20:18)
--- NOTE | 2023-10-29 09:53 | P.PN ---
Date of Service: 10/29/23 Subjective: improving more alert/oriented today oriented x2 ROS: 10 point ROS as noted above, otherwise negative Physical exam GEN: Alert, confused, drowsy oriented x 2, NAD HEENT: Normal conjunctiva, sclera anicteric CV: Regular rate and rhythm, no edema Pulm: Nonlabored respirations on room air ABD: Soft, nontender, nondistended MSK: No joint tenderness Integumentary: No rashes Neuro: Drowsy, confused Vitals reviewed Assessment: Metabolic encephalopathy secondary to hypernatremia COVID-19 positive Atrial fibrillation with rapid ventricular response-ongoing chronic A-fib on chronic anticoagulation Elevated troponin Hypertension Hyperlipidemia Dementia History of asthma Plan: Metabolic encephalopathy secondary to hypernatremia improving, oriented x 2 Does admit to poor oral intake recently but unsure for how long Sodium 163 today, sodium in the 140s mid [address], received 2.5 L NS in ED D5W continuous Nephrology consultation, continue to trend chemistry more alert today, speech therapy consult in place for possible advancement of diet COVID-19 positive Reportedly completed course of Paxlovid On room air, no signs of pneumonia on chest x-ray Possibly contributing to encephalopathy/poor oral intake Atrial fibrillation with rapid ventricular response-ongoing chronic A-fib on chronic anticoagulation Continue carvedilol, Eliquis. Monitor on telemetry Elevated troponin Suspect demand ischemia, troponin trended flat Monitor on telemetry Hypertension Hyperlipidemia Dementia History of asthma Continue home medications once verified DVT PPX: Continue Eliquis Code status: Full code Time Spent Managing Pts Care (In Minutes): 35
--- NOTE | 2023-10-29 13:43 | EKG ---
Test Date: 2023-10-27 Test Time: 12:18:31 [employer] Operator: GIL MEASUREMENT RESULTS: Intervals: Rate: 104 NC: QRSD: 116 QT: 378 QTc: 497 [place]: P: NC: QRS: 71 T: 254 INTERPRETIVE STATEMENTS: Atrial fibrillation with rapid ventricular response T wave abnormality, consider inferior ischemia Abnormal ECG Compared to ECG 06/02/2023 12:43:39 T-wave abnormality now present Possible ischemia now present Right-axis deviation no longer present Electronically Signed On 10-29-23 13:39:51 ENVIRONMENTAL PLANNING ENGINEER by Wiley Cyr
--- NOTE | 2023-10-29 14:07 | P.PN ---
(S) Pt remains in COVID-19 isolation, not needing O2, does awaken and respond briefly before falling back asleep. Remains on D5W IVF. (O) Vitals reviewed in the EMR General: NAD HEENT: Atraumatic, not on o2 Neck: Supple Respiratory: b/l air entry without rales Cardiovascular: Regular rate/rhythm Gastrointestinal: Soft and benign, Non-distended Musculoskeletal: No contractures or edema Integumentary: No rashes Imagings Data: EXAM DESCRIPTION: US - Renal Ultrasound-Complete - 10/27/2023 2:32 pm CLINICAL HISTORY: PAIN Flank pain COMPARISON: No comparisons FINDINGS: Both kidneys are normal in size, shape and echotexture. The right kidney measures 10.2 x 6.0 x 6.0 cm.. No hydronephrosis, focal mass or perinephric fluid. The left kidney measures 9.8 x 6.9 x 6.1 cm.. No hydronephrosis, focal mass or perinephric fluid. 29 x 23 mm cyst projects from the left kidney. The urinary bladder is incompletely distended and incompletely assessed. IMPRESSION: Patient was combative during the study, limiting quality of the images submitted. No hydronephrosis. 29 mm benign-appearing left renal cyst. No gross renal stones seen. EXAM DESCRIPTION: RAD - Chest Single View - 10/27/2023 12:41 pm CLINICAL HISTORY: COUGH Chest pain. COMPARISON: <Comparisons> FINDINGS: Portable technique limits examination quality. The lungs are grossly clear. The heart is normal in size. No displaced fractures. IMPRESSION: No acute intrathoracic process suspected. Conclusions/Impression: Stage 1 DEBORAH 2nd to dehydration -Resolving with IVF hydration Hypernatremia, severe, symptomatic -Continue IVF with D5W, f/u on Na level, adjust rate accordingly. No reports of GI losses. No polyuria to suggest sig urinary free water losses HTN, essential -CCB resumed by IM team, will lower dose and place holding parameter Toxic-metabolic Encephalopathy -Monitor closely, take delirium precautions and caution with use of [employer] CLERK acting agents Ryan Truong MD, IMANI
[2023-10-29 14:45] LABS: Absolute Lymphocytes (CBC) 1.4 K/uL (0.7-4.9); Hematocrit 37.2 % (39.6-49.0); Lymphocytes % 12.1 % (15.3-44.8); MCV 96.9 fL (80-100); MPV 10.3 fL (7.6-11.3); Platelets 249 thou/uL (152-406); RBC Red Blood Cell Count 3.84 M/uL (4.33-5.43)
[2023-10-29 15:10] LABS: Albumin 2.1 g/dL (3.4-5.0); Magnesium 2.3 mg/dL (1.6-2.4); Phosphorus 2.5 mg/dL (2.5-4.9); Potassium 3.1 mEq/L (3.5-5.1)
[2023-10-29] MEDS ORDERED: POTASSIUM 25 MEQ EFFERV TAB PO ONE (15:55)
[2023-10-29] MEDS: ATORVASTATIN 40 MG TAB PO SCH (20:18)
[2023-10-29] MEDS ORDERED: HALOPERIDOL LACT 5 MG/ML INJ ONE (20:50)
[2023-10-29] MEDS ORDERED: KCL 20 MEQ/100 mL IVPB 20 MEQ/100 ML BAG IV SCH (21:00)
[2023-10-30] MEDS ORDERED: KCL 20 MEQ/100 mL IVPB 20 MEQ/100 ML BAG IV ONE
[2023-10-30] MEDS: HALOPERIDOL LACT 5 MG/ML INJ IV PRN ×2 (00:10→05:15)
[2023-10-30] MEDS: D5W 1,000 ML IV SCH ×3 (05:15→20:39)
[2023-10-30 07:23] LABS: Absolute Lymphocytes (CBC) 1.6 K/uL (0.7-4.9); Hematocrit 35.1 % (39.6-49.0); Lymphocytes % 16.2 % (15.3-44.8); MCV 97.2 fL (80-100); Platelets 202 thou/uL (152-406); RBC Red Blood Cell Count 3.61 M/uL (4.33-5.43)
[2023-10-30 07:48] LABS: Magnesium 2.3 mg/dL (1.6-2.4); Phosphorus 2.4 mg/dL (2.5-4.9); Potassium 3.1 mEq/L (3.5-5.1)
[2023-10-30] MEDS: carvediloL 6.25 MG TAB PO SCH ×2 (08:00→16:09)
--- NOTE | 2023-10-30 08:32 | RAD REPORT ---
EXAM DESCRIPTION: RAD - Chest Single View - 10/30/2023 7:00 am CLINICAL HISTORY: Dyspnea, eval volume status Chest pain. COMPARISON: Chest Single View dated 10/27/2023; Chest Single View dated 06/02/2023; Chest Single View da adelfo 04/30/2023; Chest Single View dated 04/16/2023 FINDINGS: Portable technique limits examination quality. Mild interstitial pulmonary edema. The heart is mildly enlarged in size. No displaced fractures. IMPRESSION: Mild CHF versus volume overload pattern.
[2023-10-30] MEDS: AMLODIPINE 5 MG TAB PO SCH (09:00)
[2023-10-30] MEDS: ENSURE ENLIVE 237 ML CAN PO SCH ×2 (09:00→20:58)
[2023-10-30] MEDS: APIXABAN 5 MG TABLET PO SCH ×2 (09:00→20:54)
[2023-10-30] MEDS: ASPIRIN EC 81 MG TAB PO SCH (09:00)
[2023-10-30] MEDS: DIVALPROEX NA 125 MG CAP PO SCH ×2 (09:00→20:58)
[2023-10-30] MEDS: DIVALPROEX ER 250 MG TAB PO SCH ×2 (09:00→20:58)
[2023-10-30] MEDS: KCL 20 MEQ/100 mL IVPB 20 MEQ/100 ML BAG IV SCH ×2 (10:39→12:00)
--- NOTE | 2023-10-30 11:38 | P.PN ---
Date of Service: 10/30/23 Subjective: Was agitated overnight Received Haldol Drowsy this morning ROS: 10 point ROS as noted above, otherwise negative Physical exam GEN: Alert, confused, drowsy oriented x 2, NAD HEENT: Normal conjunctiva, sclera anicteric CV: Regular rate and rhythm, no edema Pulm: Nonlabored respirations on room air ABD: Soft, nontender, nondistended MSK: No joint tenderness Integumentary: No rashes Neuro: Drowsy, confused Vitals reviewed Assessment: Metabolic encephalopathy secondary to hypernatremia COVID-19 positive Atrial fibrillation with rapid ventricular response-ongoing chronic A-fib on chronic anticoagulation Elevated troponin Hypertension Hyperlipidemia Dementia History of asthma Plan: Metabolic encephalopathy secondary to hypernatremia Had agitation overnight, received Haldol more drowsy again today Sodium improving Michaels catheter in place, received 2.5 L NS in ED D5W continuous Nephrology consultation, continue to trend chemistry Seen by speech who recommended diet which has been ordered COVID-19 positive Reportedly completed course of Paxlovid On room air, no signs of pneumonia on chest x-ray Possibly contributing to encephalopathy/poor oral intake Atrial fibrillation with rapid ventricular response-ongoing chronic A-fib on chronic anticoagulation Continue carvedilol, Eliquis. Monitor on telemetry Elevated troponin Suspect demand ischemia, troponin trended flat Monitor on telemetry Hypertension Hyperlipidemia Dementia History of asthma Continue home medications once verified DVT PPX: Continue Eliquis Code status: Full code Time Spent Managing Pts Care (In Minutes): 35
--- NOTE | 2023-10-30 12:34 | P.PN ---
Date of Service: 10/30/23 Vital Signs Temp Pulse Resp BP Pulse Ox 97.8 F 85 20 123/75 96 10/30/23 08:00 10/30/23 08:00 10/30/23 08:00 10/30/23 08:00 10/30/23 08:00 Medications Acetaminophen (Acetaminophen 500 Mg Tab) 500 mg PO Q4HP PRN PRN Reason: Pain scale 2-4 (Mild) Amlodipine Besylate (Amlodipine 5 Mg Tab) 5 mg PO DAILY [facility] Last Admin: 10/30/23 09:00 Dose: Not Given Apixaban (Apixaban 5 Mg Tablet) 5 mg PO BID [facility] Last Admin: 10/30/23 09:00 Dose: Not Given Aspirin (Aspirin Ec 81 Mg Tab) 81 mg PO DAILY [facility] Last Admin: 10/30/23 09:00 Dose: Not Given Atorvastatin Calcium (Atorvastatin 40 Mg Tab) 40 mg PO BEDTIME [facility] Last Admin: 10/29/23 20:18 Dose: Not Given Carvedilol (Carvedilol 6.25 Mg Tab) 6.25 mg PO BIDWM [facility] Last Admin: 10/30/23 08:00 Dose: Not Given Divalproex Sodium (Divalproex Er 250 Mg Tab) 250 mg PO BID [facility] Last Admin: 10/30/23 09:00 Dose: Not Given Divalproex Sodium (Divalproex Na 125 Mg Cap) 125 mg PO BID [facility] Last Admin: 10/30/23 09:00 Dose: Not Given Haloperidol Lactate (Haloperidol Lact 5 Mg/Ml Inj) 2 mg IV Q6HP PRN PRN Reason: agitation Last Admin: 10/30/23 05:15 Dose: 2 mg Dextrose/Water (Dextrose In Water (1-Liter)) 1,000 mls @ 125 mls/hr IV .Q8H [facility] Last Admin: 10/30/23 05:15 Dose: 1,000 mls Potassium Chloride (Kcl 20 Meq/100 Ml Ivpb (Premix)) 20 meq in 100 mls @ 50 mls/hr IV Q2H [facility]; Protocol Stop: 10/30/23 13:59 Last Admin: 10/30/23 10:39 Dose: 100 mls Nutritional Formula (Ensure Enlive 237 Ml Can) 237 ml PO BID [facility] Last Admin: 10/30/23 09:00 Dose: Not Given Microbiology Results 10/27/23 12:40 Blood - Blood Aerobic Blood Culture - Preliminary No growth in 24 hours. 10/27/23 12:40 Blood - Blood Anaerobic Blood Culture - Preliminary No growth in 24 hours. 10/27/23 12:29 Blood - Blood Aerobic Blood Culture - Preliminary No growth in 24 hours. 10/27/23 12:29 Blood - Blood Anaerobic Blood Culture - Preliminary No growth in 24 hours. Assessment/ Plan: Nephrology No dyspnea No chest pain No acute events overnight Limited IH/ ROS due to AMS Vitals, medications, blood work and imaging reviewed in the chart General: Cooperative HEENT: Atraumatic Neck: Supple Respiratory: Clear to auscultation bilaterally Cardiovascular: No edema, Regular rate/rhythm Gastrointestinal: Soft and benign, Non-distended Musculoskeletal: No clubbing, No contractures Integumentary: No rashes, No cyanosis Laboratory Data (last 24 hrs) 10/27/23 10/27/23 10/27/23 12:29 12:29 12:29 WBC 15.00 H Hgb 15.9 Hct 48.2 Plt Count 393 PT 21.7 H INR 2.01 Sodium 165 H* Potassium 3.8 BUN 71 H Creatinine 1.78 H Glucose 172 H Magnesium 3.1 H Total Bilirubin 0.6 AST 49 H ALT 40 Alkaline Phosphatase 99 Lipase 75 Imagings Data: darrenrice EXAM DESCRIPTION: US - Renal Ultrasound-Complete - 10/27/2023 2:32 pm CLINICAL HISTORY: PAIN Flank pain COMPARISON: No comparisons FINDINGS: Both kidneys are normal in size, shape and echotexture. The right kidney measures 10.2 x 6.0 x 6.0 cm.. No hydronephrosis, focal mass or perinephric fluid. The left kidney measures 9.8 x 6.9 x 6.1 cm.. No hydronephrosis, focal mass or perinephric fluid. 29 x 23 mm cyst projects from the left kidney. The urinary bladder is incompletely distended and incompletely assessed. IMPRESSION: Patient was combative during the study, limiting quality of the images submitted. No hydronephrosis. 29 mm benign-appearing left renal cyst. No gross renal stones seen. darrenrice EXAM DESCRIPTION: RAD - Chest Single View - 10/27/2023 12:41 pm CLINICAL HISTORY: COUGH Chest pain. COMPARISON: <Comparisons> FINDINGS: Portable technique limits examination quality. The lungs are grossly clear. The heart is normal in size. No displaced fractures. IMPRESSION: No acute intrathoracic process suspected. darrenrice EXAM DESCRIPTION: CT - Head Brain Wo Cont - 10/27/2023 12:35 pm CLINICAL HISTORY: MENTAL STATUS CHANGE Headache, drowsiness COMPARISON: Head Brain Wo Cont dated 04/30/2023; Head Brain Wo Cont dated 04/16/2023 TECHNIQUE: All CT scans are performed using dose optimization technique as appropriate and may include automated exposure control or mA/KV adjustment according to patient size. FINDINGS: Motion degradation is present, limiting quality of the study. No in tracranial hemorrhage, hydrocephalus or extra-axial fluid collection. Moderate generalized brain atrophy is present with mild periventricular and deep white matter chronic microvascular ischemic changes. No areas of brain edema or evidence of midline shift. Vertebral atherosclerosis. The paranasal sinuses and mastoids are clear. The calvarium is intact. IMPRESSION: No acute intracranial abnormality. Study is limited by motion artifact. Conclusions/Impression: Stage II DEBORAH likely due to dyhydration -No NSAIDs -Continue IVF Hypernatremia/ Dehydration -Continue IVF with D5W Hypokalemia -Replete as ordered Hypophosphatemia -Replete as ordered HTN -Continue Amlodipine PreDM -No sugar diet Hypoalbuminemia -Recommend protein supplementation Metabolic Encephalopathy Dementia -Continue IVF Cigarette Smoker -Recommend cessation -Nicotine TD prn Hospitalist note reviewed
[2023-10-30] MEDS: ATORVASTATIN 40 MG TAB PO SCH (20:58)
[2023-10-30] MEDS ORDERED: MELATONIN 3 MG TABLET PO PRN (22:58)
[2023-10-31] MEDS: D5W 1,000 ML IV SCH ×3 (04:39→20:39)
[2023-10-31 06:20] LABS: Hematocrit 35.9 % (39.6-49.0); MCV 96.1 fL (80-100); MPV 10.2 fL (7.6-11.3); Platelets 183 thou/uL (152-406); RBC Red Blood Cell Count 3.73 M/uL (4.33-5.43)
[2023-10-31 06:36] LABS: Magnesium 2.2 mg/dL (1.6-2.4); Phosphorus 2.3 mg/dL (2.5-4.9); Potassium 3.1 mEq/L (3.5-5.1); Uric Acid 5.5 mg/dL (3.5-7.2)
[2023-10-31] MEDS: DIVALPROEX NA 125 MG CAP PO SCH ×2 (07:41→21:32)
[2023-10-31] MEDS: carvediloL 6.25 MG TAB PO SCH ×2 (08:00→16:14)
[2023-10-31] MEDS: ENSURE ENLIVE 237 ML CAN PO SCH ×2 (09:00→21:00)
[2023-10-31] MEDS: APIXABAN 5 MG TABLET PO SCH ×2 (09:00→21:32)
[2023-10-31] MEDS: ASPIRIN EC 81 MG TAB PO SCH (09:00)
[2023-10-31] MEDS ORDERED: POTASSIUM 25 MEQ EFFERV TAB PO ONE (09:00)
[2023-10-31] MEDS: DIVALPROEX ER 250 MG TAB PO SCH ×2 (09:00→21:32)
[2023-10-31] MEDS: AMLODIPINE 5 MG TAB PO SCH (09:00)
--- NOTE | 2023-10-31 10:47 | P.PN ---
Date of Service: 10/31/23 Subjective: Was agitated overnight Awake this morning eating breakfast periodically agitated, pulled IV and not accepting new one ROS: 10 point ROS as noted above, otherwise negative Physical exam GEN: Alert, confused, oriented x 2, NAD HEENT: Normal conjunctiva, sclera anicteric CV: Regular rate and rhythm, no edema Pulm: Nonlabored respirations on room air ABD: Soft, nontender, nondistended MSK: No joint tenderness Integumentary: No rashes Neuro: Drowsy, confused Vitals reviewed Assessment: Metabolic encephalopathy secondary to hypernatremia COVID-19 positive Atrial fibrillation with rapid ventricular response-ongoing chronic A-fib on chronic anticoagulation Elevated troponin Hypertension Hyperlipidemia Dementia History of asthma Plan: Metabolic encephalopathy secondary to hypernatremia Sodium improving Nephrology consultation, continue to trend chemistry Seen by speech who recommended diet which has been ordered tolerating diet this morning He pulled his IV overnight, not letting staff place another recheck sodium this evening, if still improving will try liberal PO intake/water COVID-19 positive Reportedly completed course of Paxlovid On room air, no signs of pneumonia on chest x-ray Possibly contributing to encephalopathy/poor oral intake Atrial fibrillation with rapid ventricular response-ongoing chronic A-fib on chronic anticoagulation Continue carvedilol, Eliquis. Monitor on telemetry Elevated troponin Suspect demand ischemia, troponin trended flat Monitor on telemetry Hypertension Hyperlipidemia Dementia History of asthma Continue home medications once verified DVT PPX: Continue Eliquis Code status: Full code Time Spent Managing Pts Care (In Minutes): 35
[2023-10-31 16:20] LABS: Potassium 3.3 mEq/L (3.5-5.1)
[2023-10-31] MEDS: ATORVASTATIN 40 MG TAB PO SCH (21:32)
[2023-11-01] MEDS: D5W 1,000 ML IV SCH ×4 (03:28→20:39)
[2023-11-01 06:56] LABS: MCV 95.2 fL (80-100); MPV 9.7 fL (7.6-11.3); Platelets 180 thou/uL (152-406); RBC Red Blood Cell Count 3.47 M/uL (4.33-5.43)
[2023-11-01] MEDS: ENSURE ENLIVE 237 ML CAN PO SCH ×2 (09:00→20:53)
[2023-11-01] MEDS: DIVALPROEX ER 250 MG TAB PO SCH ×3 (09:38→21:00)
[2023-11-01] MEDS: AMLODIPINE 5 MG TAB PO SCH (09:38)
[2023-11-01] MEDS: ASPIRIN EC 81 MG TAB PO SCH (09:39)
[2023-11-01] MEDS: carvediloL 6.25 MG TAB PO SCH ×2 (09:39→16:41)
[2023-11-01] MEDS: DIVALPROEX NA 125 MG CAP PO SCH ×3 (09:39→21:00)
[2023-11-01] MEDS: APIXABAN 5 MG TABLET PO SCH ×2 (09:39→20:54)
--- NOTE | 2023-11-01 13:02 | P.PN ---
Date of Service: 11/01/23 Subjective: Mental status improved Conversive, oriented x 2 today Tolerating diet ROS: 10 point ROS as noted above, otherwise negative Physical exam GEN: Alert, confused, oriented x 2, NAD HEENT: Normal conjunctiva, sclera anicteric CV: Regular rate and rhythm, no edema Pulm: Nonlabored respirations on room air ABD: Soft, nontender, nondistended MSK: No joint tenderness Integumentary: No rashes Neuro: Drowsy, confused Vitals reviewed Assessment: Metabolic encephalopathy secondary to hypernatremia COVID-19 positive Atrial fibrillation with rapid ventricular response-ongoing chronic A-fib on chronic anticoagulation Elevated troponin Hypertension Hyperlipidemia Dementia History of asthma Plan: Metabolic encephalopathy secondary to hypernatremia Sodium improving down to 146 today Nephrology consultation, continue to trend chemistry Seen by speech who recommended diet which has been ordered tolerating diet this morning He pulled his IV overnight, not letting staff place another-we will continue to try for PIV to continue D5W Patient reports he does not drink water, dislikes water prefers Coke counseled on importance of water intake COVID-19 positive Reportedly completed course of Paxlovid On room air, no signs of pneumonia on chest x-ray Possibly contributing to encephalopathy/poor oral intake Atrial fibrillation with rapid ventricular response-ongoing chronic A-fib on chronic anticoagulation Continue carvedilol, Eliquis. Monitor on telemetry Elevated troponin Suspect demand ischemia, troponin trended flat Monitor on telemetry Hypertension Hyperlipidemia Dementia History of asthma Continue home medications once verified DVT PPX: Continue Eliquis Code status: Full code Dispoback to [facility] long-term patient Time Spent Managing Pts Care (In Minutes): 35
[2023-11-01] MEDS ORDERED: POTASSIUM 25 MEQ EFFERV TAB PO ONE (14:00)
--- NOTE | 2023-11-01 20:17 | P.PN ---
Date of Service: 11/01/23 Vital Signs Temp Pulse Resp BP Pulse Ox 97.4 F 76 16 117/68 97 11/01/23 16:00 11/01/23 16:41 11/01/23 16:00 11/01/23 16:41 11/01/23 16:00 Medications Acetaminophen (Acetaminophen 500 Mg Tab) 500 mg PO Q4HP PRN PRN Reason: Pain scale 2-4 (Mild) Amlodipine Besylate (Amlodipine 5 Mg Tab) 5 mg PO DAILY [facility] Last Admin: 11/01/23 09:38 Dose: 5 mg Apixaban (Apixaban 5 Mg Tablet) 5 mg PO BID [facility] Last Admin: 11/01/23 09:39 Dose: 5 mg Aspirin (Aspirin Ec 81 Mg Tab) 81 mg PO DAILY [facility] Last Admin: 11/01/23 09:39 Dose: 81 mg Atorvastatin Calcium (Atorvastatin 40 Mg Tab) 40 mg PO BEDTIME [facility] Last Admin: 10/31/23 21:32 Dose: 40 mg Carvedilol (Carvedilol 6.25 Mg Tab) 6.25 mg PO BIDWM [facility] Last Admin: 11/01/23 16:41 Dose: 6.25 mg Divalproex Sodium (Divalproex Er 250 Mg Tab) 250 mg PO BID [facility] Last Admin: 11/01/23 09:38 Dose: 250 mg Divalproex Sodium (Divalproex Na 125 Mg Cap) 125 mg PO BID [facility] Last Admin: 11/01/23 09:39 Dose: 125 mg Dextrose/Water (Dextrose In Water (1-Liter)) 1,000 mls @ 125 mls/hr IV .Q8H [facility] Last Admin: 11/01/23 15:03 Dose: 1,000 mls Melatonin (Melatonin 3 Mg Tablet) 3 mg PO BEDTIME PRN PRN PRN Reason: INSOMNIA Nutritional Formula (Ensure Enlive 237 Ml Can) 237 ml PO BID [facility] Last Admin: 11/01/23 09:00 Dose: Not Given Microbiology Results 10/27/23 12:40 Blood - Blood Aerobic Blood Culture - Final No growth in 5 days. 10/27/23 12:40 Blood - Blood Anaerobic Blood Culture - Final No growth in 5 days. 10/27/23 12:29 Blood - Blood Aerobic Blood Culture - Final No growth in 5 days. 10/27/23 12:29 Blood - Blood Anaerobic Blood Culture - Final No growth in 5 days. Assessment/ Plan: Nephrology No dyspnea No chest pain No acute events overnight He pulled out his IV Vitals, medications, blood work and imaging reviewed in the chart General: Cooperative HEENT: Atraumatic Neck: Supple Respiratory: Clear to auscultation bilaterally Cardiovascular: No edema, Regular rate/rhythm Gastrointestinal: Soft and benign, Non-distended Musculoskeletal: No clubbing, No contractures Integumentary: No rashes, No cyanosis Michaels Dark Laboratory Data (last 24 hrs) 10/27/23 10/27/23 10/27/23 12:29 12:29 12:29 WBC 15.00 H Hgb 15.9 Hct 48.2 Plt Count 393 PT 21.7 H INR 2.01 Sodium 165 H* Potassium 3.8 BUN 71 H Creatinine 1.78 H Glucose 172 H Magnesium 3.1 H Total Bilirubin 0.6 AST 49 H ALT 40 Alkaline Phosphatase 99 Lipase 75 Imagings Data: darrenrice EXAM DESCRIPTION: US - Renal Ultrasound-Complete - 10/27/2023 2:32 pm CLINICAL HISTORY: PAIN Flank pain COMPARISON: No comparisons FINDINGS: Both kidneys are normal in size, shape and echotexture. The right kidney measures 10.2 x 6.0 x 6.0 cm.. No hydronephrosis, focal mass or perinephric fluid. The left kidney measures 9.8 x 6.9 x 6.1 cm.. No hydronephrosis, focal mass or perinephric fluid. 29 x 23 mm cyst projects from the left kidney. The urinary bladder is incompletely distended and incompletely assessed. IMPRESSION: Patient was combative during the study, limiting quality of the images submitted. No hydronephrosis. 29 mm benign-appearing left renal cyst. No gross renal stones seen. EXAM DESCRIPTION: RAD - Chest Single View - 10/27/2023 12:41 pm CLINICAL HISTORY: COUGH Chest pain. COMPARISON: <Comparisons> FINDINGS: Portable technique limits examination quality. The lungs are grossly clear. The heart is normal in size. No displaced fractures. IMPRESSION: No acute intrathoracic process suspected. EXAM DESCRIPTION: CT - Head Brain Wo Cont - 10/27/2023 12:35 pm CLINICAL HISTORY: MENTAL STATUS CHANGE Headache, drowsiness COMPARISON: Head Brain Wo Cont dated 04/30/2023; Head Brain Wo Cont dated 04/16/2023 TECHNIQUE: All CT scans are performed using dose optimization technique as appropriate and may include automated exposure control or mA/KV adjustment acco rding to patient size. FINDINGS: Motion degradation is present, limiting quality of the study. No intracranial hemorrhage, hydrocephalus or extra-axial fluid collection. Moderate generalized brain atrophy is present with mild periventricular and deep white matter chronic microvascular ischemic changes. No areas of brain edema or evidence of midline shift. Vertebral atherosclerosis. The paranasal sinuses and mastoids are clear. The calvarium is intact. IMPRESSION: No acute intracranial abnormality. Study is limited by motion mara fact. Conclusions/Impression: Stage II DEBORAH likely due to dyhydration -No NSAIDs -Continue IVF Hypernatremia/ Dehydration -Continue IVF with D5W as tolerated -Encourage free water intake Hypokalemia -Replete as ordered Hypophosphatemia -Replete prn HTN -Continue Amlodipine PreDM -No sugar diet Hypoalbuminemia -Recommend protein supplementation Metabolic Encephalopathy Dementia -Encourage free water intake Cigarette Smoker -Recommend cessation -Nicotine TD prn Hospitalist note reviewed Case reviewed with hospitalist team
[2023-11-01] MEDS: ATORVASTATIN 40 MG TAB PO SCH (20:54)
[2023-11-02] MEDS: D5W 1,000 ML IV SCH ×3 (04:39→20:39)
[2023-11-02 06:51] LABS: Hematocrit 33.8 % (39.6-49.0); MCV 95.1 fL (80-100); Platelets 166 thou/uL (152-406); RBC Red Blood Cell Count 3.56 M/uL (4.33-5.43)
[2023-11-02 07:05] LABS: Magnesium 2.1 mg/dL (1.6-2.4); Potassium 3.1 mEq/L (3.5-5.1)
[2023-11-02] MEDS: AMLODIPINE 5 MG TAB PO SCH (09:16)
[2023-11-02] MEDS: APIXABAN 5 MG TABLET PO SCH ×2 (09:16→21:23)
[2023-11-02] MEDS: DIVALPROEX NA 125 MG CAP PO SCH ×2 (09:16→21:23)
[2023-11-02] MEDS: ASPIRIN EC 81 MG TAB PO SCH (09:16)
[2023-11-02] MEDS: DIVALPROEX ER 250 MG TAB PO SCH ×2 (09:16→21:23)
[2023-11-02] MEDS: ENSURE ENLIVE 237 ML CAN PO SCH ×2 (09:17→21:00)
[2023-11-02] MEDS: carvediloL 6.25 MG TAB PO SCH ×2 (09:17→16:20)
[2023-11-02] MEDS: POTASS/SODIUM PHOSPHATE 1 PKT POWD.PACK PO SCH ×3 (12:29→14:30)
[2023-11-02] MEDS: POTASSIUM CL SA 10 MEQ TAB PO ONE ×2 (12:29→12:30)
--- NOTE | 2023-11-02 16:21 | P.PN ---
Date of Service: 11/02/23 Subjective: Confused today, refused an IV placement Phosphorus and potassium low while sodium is on the high normal Will monitor through the night, reevaluate discharge tomorrow ROS: 10 point ROS as noted above, otherwise negative Physical exam GEN: Alert, confused, oriented x 2, NAD HEENT: Normal conjunctiva, sclera anicteric CV: Regular rate and rhythm, no edema Pulm: Nonlabored respirations on room air ABD: Soft, nontender, nondistended MSK: No joint tenderness Integumentary: No rashes Neuro: Awake, confused Vitals reviewed Assessment: Metabolic encephalopathy secondary to hypernatremia COVID-19 positive Atrial fibrillation with rapid ventricular response-ongoing chronic A-fib on chronic anticoagulation Elevated troponin Hypertension Hyperlipidemia Dementia History of asthma Plan: Metabolic encephalopathy secondary to hypernatremia Sodium improving down to 143 today Nephrology consultation, continue to trend chemistry Seen by speech who recommended diet which has been ordered 10/31, re-evaluated 11/01 and found to be more confused tolerating diet this morning He pulled his IV overnight, not letting staff place another-we will continue to try for PIV to continue D5W Patient reports he does not drink water, dislikes water prefers Coke counseled on importance of water intake COVID-19 positive Reportedly completed course of Paxlovid On room air, no signs of pneumonia on chest x-ray Possibly contributing to encephalopathy/poor oral intake Atrial fibrillation with rapid ventricular response-ongoing chronic A-fib on chronic anticoagulation Continue carvedilol, Eliquis. Monitor on telemetry- No Acute events OVN Elevated troponin Suspect demand ischemia, troponin trended flat Monitor on telemetry- No acute events OVN Hypertension Hyperlipidemia Dementia History of asthma Continue home medications once verified DVT PPX: Continue Eliquis Code status: Full code Dispoback to [facility] long-term patient likely 11/03/23 Time Spent Managing Pts Care (In Minutes): 35
[2023-11-02 16:29] VITALS: O2SAT 96
[2023-11-02] MEDS ORDERED: POTASS/SODIUM PHOSPHATE 1 PKT POWD.PACK PO ONE (20:04)
--- NOTE | 2023-11-02 20:05 | P.PN ---
Date of Service: 11/02/23 Vital Signs Temp Pulse Resp BP Pulse Ox 97.7 F 70 20 125/71 96 11/02/23 16:00 11/02/23 16:20 11/02/23 16:00 11/02/23 16:20 11/02/23 16:00 Medications Acetaminophen (Acetaminophen 500 Mg Tab) 500 mg PO Q4HP PRN PRN Reason: Pain scale 2-4 (Mild) Amlodipine Besylate (Amlodipine 5 Mg Tab) 5 mg PO DAILY [facility] Last Admin: 11/02/23 09:16 Dose: 5 mg Apixaban (Apixaban 5 Mg Tablet) 5 mg PO BID [facility] Last Admin: 11/02/23 09:16 Dose: 5 mg Aspirin (Aspirin Ec 81 Mg Tab) 81 mg PO DAILY [facility] Last Admin: 11/02/23 09:16 Dose: 81 mg Atorvastatin Calcium (Atorvastatin 40 Mg Tab) 40 mg PO BEDTIME [facility] Last Admin: 11/01/23 20:54 Dose: 40 mg Carvedilol (Carvedilol 6.25 Mg Tab) 6.25 mg PO BIDWM [facility] Last Admin: 11/02/23 16:20 Dose: 6.25 mg Divalproex Sodium (Divalproex Er 250 Mg Tab) 250 mg PO BID [facility] Last Admin: 11/02/23 09:16 Dose: 250 mg Divalproex Sodium (Divalproex Na 125 Mg Cap) 125 mg PO BID [facility] Last Admin: 11/02/23 09:16 Dose: 125 mg Dextrose/Water (Dextrose In Water (1-Liter)) 1,000 mls @ 125 mls/hr IV .Q8H [facility] Last Admin: 11/02/23 12:39 Dose: Not Given Melatonin (Melatonin 3 Mg Tablet) 3 mg PO BEDTIME PRN PRN PRN Reason: INSOMNIA Nutritional Formula (Ensure Enlive 237 Ml Can) 237 ml PO BID [facility] Last Admin: 11/02/23 09:17 Dose: 237 ml Microbiology Results 10/27/23 12:40 Blood - Blood Aerobic Blood Culture - Final No growth in 5 days. 10/27/23 12:40 Blood - Blood Anaerobic Blood Culture - Final No growth in 5 days. 10/27/23 12:29 Blood - Blood Aerobic Blood Culture - Final No growth in 5 days. 10/27/23 12:29 Blood - Blood Anaerobic Blood Culture - Final No growth in 5 days. Assessment/ Plan: Nephrology No dyspnea No chest pain No acute events overnight Vitals, medications, blood work and imaging reviewed in the chart General: Cooperative HEENT: Atraumatic Neck: Supple Respiratory: Clear to auscultation bilaterally Cardiovascular: No edema, Regular rate/rhythm Gastrointestinal: Soft and benign, Non-distended Musculoskeletal: No clubbing, No contractures Integumentary: No rashes, No cyanosis Michaels Dark Laboratory Data (last 24 hrs) 10/27/23 10/27/23 10/27/23 12:29 12:29 12:29 WBC 15.00 H Hgb 15.9 Hct 48.2 Plt Count 393 PT 21.7 H INR 2.01 Sodium 165 H* Potassium 3.8 BUN 71 H Creatinine 1.78 H Glucose 172 H Magnesium 3.1 H Total Bilirubin 0.6 AST 49 H ALT 40 Alkaline Phosphatase 99 Lipase 75 Imagings Data: darrenrice EXAM DESCRIPTION: US - Renal Ultrasound-Complete - 10/27/2023 2:32 pm CLINICAL HISTORY: PAIN Flank pain COMPARISON: No comparisons FINDINGS: Both kidneys are normal in size, shape and echotexture. The right kidney measures 10.2 x 6.0 x 6.0 cm.. No hydronephrosis, focal mass or perinephric fluid. The left kidney measures 9.8 x 6.9 x 6.1 cm.. No hydronephrosis, focal mass or perinephric fluid. 29 x 23 mm cyst projects from the left kidney. The urinary bladder is incompletely distended and incompletely assessed. IMPRESSION: Patient was combative during the study, limiting quality of the images submitted. No hydronephrosis. 29 mm benign-appearing left renal cyst. No gross renal stones seen. EXAM DESCRIPTION: RAD - Chest Single View - 10/27/2023 12:41 pm CLINICAL HISTORY: COUGH Chest pain. COMPARISON: <Comparisons> FINDINGS: Portable technique limits examination quality. The lungs are grossly clear. The heart is normal in size. No displaced fractures. IMPRESSION: No acute intrathoracic process suspected. EXAM DESCRIPTION: CT - Head Brain Wo Cont - 10/27/2023 12:35 pm CLINICAL HISTORY: MENTAL STATUS CHANGE Headache, drowsiness COMPARISON: Head Brain Wo Cont dated 04/30/2023; Head Brain Wo Cont dated 04/16/2023 TECHNIQUE: All CT scans are performed using dose optimization technique as appropriate and may include automated exposure control or mA/KV adjustment according to patient size. FINDINGS: Motion degradation is present, limiting quality of the study. No intracranial hemorrhage, hydrocephalus or extra-axial fluid collection. Moderate generalized brain atrophy is present with mild periventricular and deep white matter chronic microvascular ischemic changes. No areas of brain edema or evidence of midline shift. Vertebral atherosclerosis. The paranasal sinuses and mastoids are clear. The calvarium is intact. IMPRESSION: No acute intracranial abnormality. Study is limited by motion artifact. Conclusions/Impression: Stage II DEBORAH likely due to dehydration -No NSAIDs Hypernatremia/ Dehydration -Encourage free water intake Hypokalemia -Replete as ordered Hypophosphatemia -Replete as ordered HTN -Continue Amlodipine PreDM -No sugar diet Hypoalbuminemia -Recommend protein supplementation Metabolic Encephalopathy Dementia -Encourage free water intake Cigarette Smoker -Recommend cessation -Nicotine TD prn Hospitalist note reviewed Case reviewed with hospitalist team
[2023-11-02] MEDS: ATORVASTATIN 40 MG TAB PO SCH (21:23)
[2023-11-03] MEDS: D5W 1,000 ML IV SCH ×2 (04:39→10:08)
[2023-11-03 07:00] LABS: MCV 95.7 fL (80-100); MPV 9.8 fL (7.6-11.3); Platelets 169 thou/uL (152-406); RBC Red Blood Cell Count 3.65 M/uL (4.33-5.43)
[2023-11-03 07:19] LABS: Magnesium 2.2 mg/dL (1.6-2.4); Phosphorus 2.9 mg/dL (2.5-4.9); Potassium 3.2 mEq/L (3.5-5.1); Uric Acid 4.9 mg/dL (3.5-7.2)
[2023-11-03] MEDS ORDERED: POTASSIUM CL SA 10 MEQ TAB PO ONE (07:33)
[2023-11-03] MEDS: DIVALPROEX NA 125 MG CAP PO SCH (08:42)
[2023-11-03] MEDS: carvediloL 6.25 MG TAB PO SCH (08:43)
[2023-11-03] MEDS: ASPIRIN EC 81 MG TAB PO SCH (08:43)
[2023-11-03] MEDS: AMLODIPINE 5 MG TAB PO SCH (08:43)
[2023-11-03] MEDS: APIXABAN 5 MG TABLET PO SCH (08:43)
[2023-11-03] MEDS: DIVALPROEX ER 250 MG TAB PO SCH (08:43)
[2023-11-03] MEDS: ENSURE ENLIVE 237 ML CAN PO SCH (08:51)
[2023-11-03 15:21] VITALS: BP 126/82; TEMP 98.2
--- NOTE | 2023-11-03 17:12 | P.DS ---
Admission Date: 10/27/23 Discharge Date: 11/04/23 Disposition: TRANSFER TO SNF - MEDICAL Discharge Condition: FAIR Reason for Admission: Hypernatremia, AMS Brief History of Present Illness: Diagnosis Metabolic encephalopathy secondary to hypernatremia COVID-19 positive Atrial fibrillation with rapid ventricular response-ongoing chronic A-fib on chronic anticoagulation Elevated troponin Hypertension Hyperlipidemia Dementia History of asthma HPI 10/27/23 73-year-old male with history of hypertension, hyperlipidemia, atrial fibrillation on chronic anticoagulation, dementia, asthma/COPD presents to the emergency department from [facility] with chief complaint of altered mental status. He was reportedly diagnosed with COVID approximately 9 days prior to admission to the hospital and has been developing altered mental status over the course of the last few days. Patient is currently oriented x 1, confused. He does admit to poor oral intake but cannot say for how long or why. He was evaluated in the emergency department his labs were significant for a white blood cell count of 15 INR 2.01 sodium 165 chloride 131 creatinine 1.78 GFR 40 glucose 172 lactic acid 3.6 high since he troponin 92.3 BNP 1432 UA not suggestive of urinary tract infection Depakote level is 34.4 still swabbing positive for COVID currently on PCR test. CT head was negative for acute findings as well as a chest x-ray. Renal ultrasound was ordered and pending. In the emergency department patient received 2.5 L NS bolus, Ativan 2 mg IM for agitation, Rocephin 1 g IV. Patient be admitted for further evaluation of metabolic encephalopathy, hypernatremia. Hospital Course: Donald Herron is a pleasant 73-year-old male with a past medical history significant for hypertension, hyperlipidemia, atrial fibrillation on chronic anticoagulation, dementia, asthma/COPD who was admitted to the [facility] on 10/27/23 for metabolic encephalopathy, hypernatremia. Donald presented to the ED with complaints of altered mental status. His sodium resulted as 165, still COVID-positive completed paxlovid, Depakote level of 34.4. CT head was negative for acute findings well as a chest x-ray was negative renal ultrasound was ordered showing "no hydronephrosis. 29 mm benign- appearing left renal cyst. No gross renal stones seen." Elevated troponin likely due to demand ischemia, serial troponin trended flat. He has tolerated rehydration with IV fluids, he does have poor p.o. intake, Michaels removed and able to urinate without problem. He has been confused with physical therapy and unable to cooperate fully. He is hemodynamically stable and ready for discharge back to [facility]. On 11/03/2023, Donald was seen on morning rounds and deemed medically stable for discharge back to [facility]. Donald was discharged with instructions to schedule follow-up appointments with PCP. Donald was provided prescriptions for Coreg, Lipitor, Norvasc, Eliquis. The patient and family members were given the opportunity to ask questions and reported no further questions. Furthermore, all questions were answered to the best of my ability. A copy of this discharge summary will be sent to the above providers to facilitate continuity of care. Today, I personally spent 50 minutes with Donald, of which greater than 50% of the time was spent in patient education, counseling, and coordination of care as described above. Physical exam GEN: Alert, confused, oriented x 2, NAD HEENT: Normal conjunctiva, sclera anicteric CV: Regular rate and rhythm, no edema Pulm: Nonlabored respirations on room air ABD: Soft, nontender, nondistended MSK: No joint tenderness Integumentary: No rashes Neuro: Awake, confused Vital Signs/Physical Exam: Temp Pulse Resp BP Pulse Ox 98.2 F 65 19 126/82 98 11/03/23 12:00 11/03/23 12:00 11/03/23 12:00 11/03/23 12:00 11/03/23 12:00 Laboratory Data at Discharge: WBC 7.20 thou/uL (4.3-10.9) 11/03/23 06:32 Hgb 11.9 g/dL (13.6-17.9) L 11/03/23 06:32 Hct 35.0 % (39.6-49.0) L 11/03/23 06:32 Plt Count 169 thou/uL (152-406) 11/03/23 06:32 PT 21.7 SECONDS (9.5-12.5) H 10/27/23 12:29 INR 2.01 10/27/23 12:29 Sodium 144 mEq/L (136-145) 11/03/23 06:32 Potassium Cancelled 11/03/23 15:00 BUN 15 mg/dL (7-18) 11/03/23 06:32 Creatinine 0.64 mg/dL (0.70-1.30) L 11/03/23 06:32 Glucose 91 mg/dL (74-106) 11/03/23 06:32 Uric Acid 4.9 mg/dL (3.5-7.2) 11/03/23 06:32 Phosphorus 2.9 mg/dL (2.5-4.9) 11/03/23 06:32 Magnesium 2.2 mg/dL (1.6-2.4) 11/03/23 06:32 Total Bilirubin 0.6 mg/dL (0.2-1.0) 10/27/23 12:29 AST 49 U/L (15-37) H 10/27/23 12:29 ALT 40 U/L (16-61) 10/27/23 12:29 Alkaline Phosphatase 99 U/L (45-117) 10/27/23 12:29 Lipase 75 U/L (13-75) 10/27/23 12:29 Home Medications: Acetaminophen with Codeine [Acetaminophen-Cod #3 Tablet] 1 tab PO Q8HP PRN 04/17/23 Apixaban [Eliquis] 5 mg PO BID 04/17/23 Aspirin [Aspirin EC 81 MG] 81 mg PO DAILY 04/17/23 Atorvastatin Calcium 40 mg PO BEDTIME 04/17/23 Divalproex ER [Depakote *ER] 250 mg PO BID 04/17/23 Divalproex Sodium [Depakote] 125 mg PO BID 04/17/23 Ergocalciferol (Vitamin D2) [Vitamin D2] 1 cap PO Q7D 04/17/23 Acetaminophen [Tylenol] 650 mg PO Q6HP PRN 10/27/23 Amlodipine [Norvasc*] 10 mg PO DAILY 10/27/23 Ascorbic Acid [Vitamin C*] 500 mg PO DAILY 10/27/23 Cholecalciferol (Vitamin D3) [Vitamin D 1000 Iu Tab*] 1,000 unit PO DAILY 10/27/23 Fluticasone/Umeclidin/Vilanter [Trelegy Ellipta 200-62.5-25] 1 each IH DAILY 10/27/23 Lidocaine 4% Patch [Lidoderm 5% Patch*] 1 patch TD DAILY 10/27/23 Zinc Gluconate [Zinc] 50 mg PO DAILY 10/27/23 carvediloL [Carvedilol] 6.25 mg PO BID 10/27/23 cloNIDine HCL [Clonidine HCl] 0.1 mg PO Q8HP PRN 10/27/23 Amlodipine [Norvasc*] 5 mg PO DAILY tab 11/03/23 Apixaban [Eliquis] 5 mg PO BID 11/03/23 Atorvastatin Calcium [Lipitor] 40 mg PO BEDTIME tab 11/03/23 Ensure Enlive 237 ml PO BID can 11/03/23 carvediloL [Coreg*] 6.25 mg PO BIDWM tab 11/03/23 Physician Discharge Instructions: 1. Please call and schedule a follow-up appointment with your PCP in 3-5 days - Please follow-up with your PCP for medication refills/adjustments 2. SUPERVISOR ORCHARD recommends minced moist food 3. nutritional recommendations as follows: 1.) Regular diet as tolerated 2.) Encourage small, frequent meals and adequate fluid intake 3.) Ensure Enlive (237ml) PO BID 4.) If PO intake remains poor, may recommend enteral nutrition but will need to consider patient's quality of life with dementia 4. Encourage fluids to prevent dehydration 5. return to the ED if symptoms worsen 6. continue all medications previously prescribed from PCP 7. Fall precautions, continue physical therapy for ambulation safety and strengthening Diet: Regular Activity: Fall precautions Followup: Pino Quinn MD [Primary Care Provider] - Time spent managing pt's care (in minutes): 50
--- NOTE | 2023-11-03 21:26 | P.PN ---
Date of Service: 11/03/23 Vital Signs Temp Pulse Resp BP Pulse Ox 98.2 F 65 19 126/82 98 11/03/23 12:00 11/03/23 12:00 11/03/23 12:00 11/03/23 12:00 11/03/23 12:00 Microbiology Results 10/27/23 12:40 Blood - Blood Aerobic Blood Culture - Final No growth in 5 days. 10/27/23 12:40 Blood - Blood Anaerobic Blood Culture - Final No growth in 5 days. 10/27/23 12:29 Blood - Blood Aerobic Blood Culture - Final No growth in 5 days. 10/27/23 12:29 Blood - Blood Anaerobic Blood Culture - Final No growth in 5 days. Assessment/ Plan: Nephrology No dyspnea No chest pain No acute events overnight Vitals, medications, blood work and imaging reviewed in the chart General: Cooperative HEENT: Atraumatic Neck: Supple Respiratory: Clear to auscultation bilaterally Cardiovascular: No edema, Regular rate/rhythm Gastrointestinal: Soft and benign, Non-distended Musculoskeletal: No clubbing, No contractures Integumentary: No rashes, No cyanosis Michaels Dark Laboratory Data (last 24 hrs) 10/27/23 10/27/23 10/27/23 12:29 12:29 12:29 WBC 15.00 H Hgb 15.9 Hct 48.2 Plt Count 393 PT 21.7 H INR 2.01 Sodium 165 H* Potassium 3.8 BUN 71 H Creatinine 1.78 H Glucose 172 H Magnesium 3.1 H Total Bilirubin 0.6 AST 49 H ALT 40 Alkaline Phosphatase 99 Lipase 75 Imagings Data: darrenrice EXAM DESCRIPTION: US - Renal Ultrasound-Complete - 10/27/2023 2:32 pm CLINICAL HISTORY: PAIN Flank pain COMPARISON: No comparisons FINDINGS: Both kidneys are normal in size, shape and echotexture. The right kidney measures 10.2 x 6.0 x 6.0 cm.. No hydronephrosis, focal mass or perinephric fluid. The left kidney measures 9.8 x 6.9 x 6.1 cm.. No hydronephrosis, focal mass or perinephric fluid. 29 x 23 mm cyst projects from the left kidney. The urinary bladder is incompletely distended and incompletely assessed. IMPRESSION: Patient was combative during the study, limiting quality of the images submitted. No hydronephrosis. 29 mm benign-appearing left renal cyst. No gross renal stones seen. EXAM DESCRIPTION: RAD - Chest Single View - 10/27/2023 12:41 pm CLINICAL HISTORY: COUGH Chest pain. COMPARISON: <Comparisons> FINDINGS: Portable technique limits examination quality. The lungs are grossly clear. The heart is normal in size. No displaced fractures. IMPRESSION: No acute intrathoracic process suspected. EXAM DESCRIPTION: CT - Head Brain Wo Cont - 10/27/2023 12:35 pm CLINICAL HISTORY: MENTAL STATUS CHANGE Headache, drowsiness COMPARISON: Head Brain Wo Cont dated 04/30/2023; Head Brain Wo Cont dated 04/16/2023 TECHNIQUE: All CT scans are performed using dose optimization technique as appropriate and may include automated exposure control or mA/KV adjustment according to patient size. FINDINGS: Motion degradation is present, limiting quality of the study. No intracranial hemorrhage, hydrocephalus or extra-axial fluid collection. Moderate generalized brain atrophy is present with mild periventricular and deep white matter chronic microvascular ischemic changes. No areas of brain edema or evidence of midline shift. Vertebral atherosclerosis. The paranasal sinuses and mastoids are clear. The calvarium is intact. IMPRESSION: No acute intracranial abnormality. Study is limited by motion artifact. Conclusions/Impression: Stage II DEBORAH likely due to dehydration -No NSAIDs Hypernatremia/ Dehydration -Encourage free water intake Hypokalemia -Replete as ordered Hypophosphatemia -Replete prn HTN -Continue Amlodipine PreDM -No sugar diet Hypoalbuminemia -Recommend protein supplementation Metabolic Encephalopathy Dementia -Encourage free water intake Cigarette Smoker -Recommend cessation -Nicotine TD prn Hospitalist note reviewed Case reviewed with hospitalist team
== END 2023-11-03 15:10 | DRG 640 ==
LOC: ER 11:58 → ERHOLD 14:16 → 4TH 21:36
PROVIDERS: ADMIT Hospitalist; ATTEND Internal Medicine
PROC: 0T9B70Z Drainage of Bladder with Drainage Device, Via Natural or Artificial Opening (ICD-10-PCS; principal; 2023-10-27)
DX: E87.0 Hyperosmolality and hypernatremia (principal); G93.41 Metabolic encephalopathy; U07.1 COVID-19; N17.9 Acute kidney failure, unspecified; I48.20 Chronic atrial fibrillation, unspecified; I24.89 Other forms of acute ischemic heart disease; E86.0 Dehydration; Z79.01 Long term (current) use of anticoagulants; G30.9 Alzheimer's disease, unspecified; F02.80 Dementia in other diseases classified elsewhere, unspecified severity, without behavioral disturbance, psychotic disturbance, mood disturbance, and anxiety; K21.9 Gastro-esophageal reflux disease without esophagitis; M19.90 Unspecified osteoarthritis, unspecified site; I10 Essential (primary) hypertension; E78.5 Hyperlipidemia, unspecified; J44.89 Other specified chronic obstructive pulmonary disease; E87.6 Hypokalemia; E83.39 Other disorders of phosphorus metabolism; E88.09 Other disorders of plasma-protein metabolism, not elsewhere classified
CPT/HCPCS: 0241U; 36415; 51702; 70450; 71045; 76770; 80048; 80076; 80164; 81001; 82040; 83036; 83605; 83690; 83735; 83880; 83930; 83935; 84100; 84132; 84300; 84439; 84443; 84484; 84550; 85025; 85027; 85610; 87040; 92526; 92610; 93005; 96365; 96366; 96368; 96372; 97110; 97116; 97163; 97530; 99285; J0696; J1630; J3480; J3486; J7030; J7040

== ENCOUNTER → 2024-01-04 | Emergency (ER) | payer OTHER ==
[~2024-01-04] MED LIST: LIDOCAINE 1% 20 ML MDV ONE; TDAP (DIPHTH,PERTUSS(ACELL),TET VAC) 0.5 ML VIAL IMVAC ONE
--- OUTSIDE RECORDS SUMMARY | 2024-01-04 05:54 | XMS REPORT | Continuity of Care Document ---
Author Name Unknown Address [address] [facility] [address] [place] [address] [facility] Address [address] [facility] [place] [address] Care Team Providers Care Line Decorator Name Role Phone PCP, PATIENT DOES NOT HAVE A Primary Care Physic marietta Unavailable ANNA RADFORD Attending Clinician Unav ailable ANNA RAFDORD Attending Clinician Unav ailable ABELARDO_BAHHarrison_Issa_J Attending Clinician Unavailable NAA LAMBHLenore Attending Clinician UnavailNaa Tierney MDHLenore Attending Clinician + [phone] Doctor Unassigned, [place] Attending Clinician U EM [place] Attending Clinician Unavailab mE Castillo DO Attending Clinician [phone] DEE DEE ESQUIVEL Attending Clinician Unavailable Jayna Rizvi RN Attending Clinician [phone] Ileana Szymanski Attending Clinician [phone] BLAIR ERVIN Attending Clinician Unavail able BLAIR ERVIN Attending Clinician Unavail Blair Phillips MD Attending Clinician [phone] Lab, Ang - Db Attending Clinician Unavailable PETROS JETER Attending Clinician Unavailable Zak Hernandez Attending Clinician Unavail able Darlene Alvarez RN Attending Clinician [phone] Valeriano Ariel BARRETT, Nidia Attending Clinician + [phone] ALICIA TALLEY Attending Clinician Unavailable Mayank VILLA, Alicia Luong Attending Clinician [phone] DANIEL KUNZ Attending Clinician Unavailshireen Rodríguez MD, Bernardo Krause Attending Clinician [phone] Dalton Chino DO Attending Clinician +[phone] Shirley VILLA, Zo Victoria Attending Clinician + Daniel Kunz MD Attending Clinician + [phone] Dick VLILA, Petar Baig Attending Clinician + [phone] BERNARDO RODRÍGUEZ Attending Clinician Unavail able GC_BAHC_Todd_J Admitting Clinician Unavailable BLAIR ERVIN Admitting Clinician Unavail able DANIEL KUNZ Admitting Clinician UnavailDaniel Napier MD Admitting Clinician [phone] BERNARDO RODRÍGUEZ Admitting Clinician Unavail able Payers Payer Name Policy Type Policy Number Effective Date Expirati on Date Source [place]: BMP [employer] [id number] 2022 00:00:00 [facility] PLAN-[place] - STAR+PLUS (MEDICAID REPLACEMENT - HMO) [id number] 2022 00:00:00 MEDICARE PART A \\T\\ B [id number] 2022 00:00:00 MED[place] [id number] 2022 00:00:00 MEDICAID - [id number]-[id number] - PENDING 000 Problems Condition Name Condition Details Condition Category Status Onset Date Resolution Date Last Treatment Date Treating Clinician Comments Source Severe protein-ca ahsan malnutriti on ([place]: less than 60 percent of standard weight) Severe Protein-ca ahsan Malnutriti on ([place]: Less than 60 Percent of Standard Weight) Problem Active 11-17 00:00: 00 [facility] Hyperammon emia Hyperammon emia Problem Active 11-17 00:00: 00 [facility] Metabolic encephalop athy Metabolic Encephalop athy Problem Active 1-24 00:00: 00 [facility] Unintentio nal weight loss Unintentio nal Weight Loss Problem Active 1-24 00:00: 00 [facility] Urinary incontinen ce Urinary Incontinen ce Problem Active 1-24 00:00: 00 [facility] Physical deconditio nina Physical Deconditio nina Problem Active 1-24 00:00: 00 [facility] At risk for falls At risk for falls Disease Active 2022-10 0- 00:00: 00 [facility] Unspecifie d abnormalit ies of gait and mobility Unspecifie d abnormalit ies of gait and mobility Disease Active 2022-10 0- 00:00: 00 [facility] Mass of subcutaneo us tissue of back Mass of Subcutaneo us Tissue of Back Problem Active 8-21 00:00: 00 [facility] Syncope Syncope Problem Active 8-11 00:00: 00 [facility] Bilateral hearing loss Bilateral Hearing Loss Problem Active 6-29 00:00: 00 [facility] Vitamin D deficiency Vitamin D Deficiency Problem Active 4-03 00:00: 00 [facility] Nicotine dependence Nicotine Dependence Problem Active 4-03 00:00: 00 [facility] Prediabete s Prediabete s Problem Active 4-03 00:00: 00 [facility] Arthritis Arthritis Problem Active 2-10 00:00: 00 [facility] Lives in custodial Lives in Residential Problem Active 2021-10 2-13 00:00: 00 [facility] Hypoalbumi nemia due to protein calorie malnutriti on Hypoalbumi nemia Due to Protein Calorie Malnutriti on Problem Active 2021-10 2-05 00:00: 00 [facility] Secondary immune deficiency disorder Secondary Immune Deficiency Disorder Problem Active 2021-10 00:00: 00 [facility] Hypercoagu lability state Hypercoagu lability State Problem Active 2021-10 00:00: 00 [facility] Atrial fibrillati on Atrial Fibrillati on Problem Active 2021-10 00:00: 00 [facility] Peripheral vascular disease Peripheral Vascular Disease Problem Active 2021-10 00:00: [address] 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 Hypertensi ve heart disease Hypertensi ve Heart Disease Problem Active [facility] Chronic obstructiv e lung disease Chronic Obstructiv e Lung Disease Problem Active [facility] Hyperlipid emia Hyperlipid emia Problem Active [facility] Allergies, Adverse Reactions, Alerts Allergy Name Allergy Type Status Severity Reaction(s) Onset Date Inactive Date Treating Clinician Comments Source NO KNOWN ALLERGIE S Drug Class Active [facility] Social History Social Habit Start Date Stop Date Quantity Comments Source Gender identity [facility] Sexual orientation U [facility] History SDOH Alcohol Std Drinks [facility] History SDOH Alcohol Comment [place] [facility] History SDOH Physical Activity MPS [facility] History of tobacco use Passive smoker [facility] Alcohol intake 2023-08-19 00:00:00 2023-08-19 00:00:00 1.14 /d [facility] Exposure to SARS-CoV-2 (event) 2023-01-08 00:00:00 2023-01-18 10:33:00 Not sure [facility] Cigarettes smoked current (pack per day) - Reported 2022-05-19 00:00:00 2022-05-19 00:00:00 [facility] Cigarette pack-years 2022-05-19 00:00:00 2022-05-19 00:00:00 [facility] Tobacco use and exposure 2022-05-19 00:00:00 2022-05-19 00:00:00 Smokeless tobacco non-user [facility] History of Social function 2022-04-30 00:00:00 2022-04-30 00:00:00 [facility] History SDOH Alcohol Frequency 2022-04-30 00:00:00 2022-04-30 00:00:00 5 [facility] History SDOH Alcohol Binge 2022-04-30 00:00:00 2022-04-30 00:00:00 5 [facility] History SDOH Social Connections Phone 2022-04-30 00:00:00 2022-04-30 00:00:00 5 [facility] SDOH Social Connections Get Together 2022-04-30 00:00:00 2022-04-30 00:00:00 5 [facility] SDOH Social Connections Religious 2022-04-30 00:00:00 2022-04-30 00:00:00 1 [facility] History SDOH Social Connections Membership 2022-04-30 00:00:00 2022-04-30 00:00:00 1 [facility] SDOH Social Connections Meetings 2022-04-30 00:00:00 2022-04-30 00:00:00 1 [facility] SDOH Social Connections Living 2022-04-30 00:00:00 2022-04-30 00:00:00 6 [facility] SDOH Physical Activity DPW 2022-04-30 00:00:00 2022-04-30 00:00:00 0 [facility] History SDOH Stress 2022-04-30 00:00:00 2022-04-30 00:00:00 3 [facility] History SDOH Financial 2022-04-30 00:00:00 2022-04-30 00:00:00 1 [facility] History SDOH Food Worry 2022-04-30 00:00:00 2022-04-30 00:00:00 3 [facility] History SDOH Food Scarcity 2022-04-30 00:00:00 2022-04-30 00:00:00 3 [facility] History SDOH Transport Med 2022-04-30 00:00:00 2022-04-30 00:00:00 1 [facility] History SDOH Transport Non-Med 2022-04-30 00:00:00 2022-04-30 00:00:00 1 [facility] Sex Assigned At 1950 00:00:00 1950 00:00:00 [facility] Smoking Status Start Date Stop Date Source [facility] Smokes tobacco daily 2022-05-19 00:00:00 [facility] Ex-smoker 2022-04-30 00:00:00 2022-04-30 00:00:00 [facility] Medications Ordered Medication Name Filled Medication Name Start Date Stop Date Current Medication? Ordering Clinician Indication Dosage Frequency Signature (SIG) Comments Components Source ergocalcife rol, vitamin D2, (ERGOCAL ORAL) 06-22 10:01: 56 Yes 1.25mg Take 1.25 mg by mouth in the morning. [facility] fluticasone -umeclidin- vilanter (TRELEGY ELLIPTA) 200-62.5-25 mcg DsDv 06-22 10:01: 54 Yes Inhale daily. [facility] carvediloL 6.25 mg tablet 06-22 10:01: 56 Yes 6.25mg Take 1 tablet by mouth in the morning and 1 tablet in the evening. Take with meals. [facility] atorvastati n 40 mg tablet 06-22 10:01: 56 Yes 40mg Take 1 tablet by mouth at bedtime. [facility] amLODIPine 10 mg tablet 06-22 10:01: 54 Yes 10mg Take 1 tablet by mouth in the morning. [facility] aspirin 81 mg chewable tablet 06-22 10:01: 54 Yes 81mg Take 1 tablet by mouth in the morning. [facility] cloNIDine 0.1 mg tablet 06-22 10:01: 54 Yes .1mg Take 1 tablet by mouth as needed. [facility] divalproex 125 mg EC tablet 06-22 10:01: 54 Yes 125mg Take 1 tablet by mouth in the morning and 1 tablet in the evening. [facility] divalproex 250 mg EC tablet 06-22 10:01: 54 Yes 250mg Take 1 tablet by mouth in the morning and 1 tablet in the evening. [facility] apixaban 5 mg tablet 06-22 10:01: 54 Yes 5mg Take 1 tablet by mouth in the morning and 1 tablet in the evening. [facility] ergocalcife rol, vitamin D2, (ERGOCAL ORAL) 06-22 10:01: 54 Yes 1.25mg Take 1.25 mg by mouth in the morning. [facility] fluticasone -umeclidin- vilanter (TRELEGY ELLIPTA) 200-62.5-25 mcg DsDv 06-22 10:01: 54 Yes Inhale daily. [facility] carvediloL 6.25 mg tablet 06-22 10:01: 54 Yes 6.25mg Take 1 tablet by mouth in the morning and 1 tablet in the evening. Take with meals. [facility] atorvastati n 40 mg tablet 06-22 10:01: 54 Yes 40mg Take 1 tablet by mouth at bedtime. [facility] amLODIPine 10 mg tablet 06-22 10:01: 54 Yes 10mg Take 1 tablet by mouth in the morning. [facility] aspirin 81 mg chewable tablet 06-22 10:01: 54 Yes 81mg Take 1 tablet by mouth in the morning. [facility] cloNIDine 0.1 mg tablet 06-22 10:01: 54 Yes .1mg Take 1 tablet by mouth as needed. [facility] divalproex 125 mg EC tablet 06-22 10:01: 54 Yes 125mg Take 1 tablet by mouth in the morning and 1 tablet in the evening. [facility] divalproex 250 mg EC tablet 06-22 10:01: 54 Yes 250mg Take 1 tablet by mouth in the morning and 1 tablet in the evening. [facility] apixaban 5 mg tablet 06-22 10:01: 54 Yes 5mg Take 1 tablet by mouth in the morning and 1 tablet in the evening. [facility] ergocalcife rol, vitamin D2, (ERGOCAL ORAL) 06-22 10:01: 54 Yes 1.25mg Take 1.25 mg by mouth in the morning. [facility] fluticasone -umeclidin- vilanter (TRELEGY ELLIPTA) 200-62.5-25 mcg DsDv 06-22 10:01: 54 Yes Inhale daily. [facility] carvediloL 6.25 mg tablet 06-22 10:01: 54 Yes 6.25mg Take 1 tablet by mouth in the morning and 1 tablet in the evening. Take with meals. [facility] atorvastati n 40 mg tablet 06-22 10:01: 54 Yes 40mg Take 1 tablet by mouth at bedtime. [facility] amLODIPine 10 mg tablet 06-22 10:01: 54 Yes 10mg Take 1 tablet by mouth in the morning. [facility] aspirin 81 mg chewable tablet 06-22 10:01: 54 Yes 81mg Take 1 tablet by mouth in the morning. [facility] cloNIDine 0.1 mg tablet 06-22 10:01: 54 Yes .1mg Take 1 tablet by mouth as needed. [facility] divalproex 125 mg EC tablet 06-22 10:01: 54 Yes 125mg Take 1 tablet by mouth in the morning and 1 tablet in the evening. [facility] divalproex 250 mg EC tablet 06-22 10:01: 54 Yes 250mg Take 1 tablet by mouth in the morning and 1 tablet in the evening. [facility] apixaban 5 mg tablet 06-22 10:01: 54 Yes 5mg Take 1 tablet by mouth in the morning and 1 tablet in the evening. [facility] ergocalcife rol, vitamin D2, (ERGOCAL ORAL) 06-22 10:01: 54 Yes 1.25mg Take 1.25 mg by mouth in the morning. [facility] fluticasone -umeclidin- vilanter (TRELEGY ELLIPTA) 200-62.5-25 mcg DsDv 06-22 10:01: 54 Yes Inhale daily. [facility] carvediloL 6.25 mg tablet 06-22 10:01: 54 Yes 6.25mg Take 1 tablet by mouth in the morning and 1 tablet in the evening. Take with meals. [facility] atorvastati n 40 mg tablet 06-22 10:01: 54 Yes 40mg Take 1 tablet by mouth at bedtime. [facility] amLODIPine 10 mg tablet 06-22 10:01: 54 Yes 10mg Take 1 tablet by mouth in the morning. [facility] aspirin 81 mg chewable tablet 06-22 10:01: 54 Yes 81mg Take 1 tablet by mouth in the morning. [facility] cloNIDine 0.1 mg tablet 06-22 10:01: 54 Yes .1mg Take 1 tablet by mouth as needed. [facility] divalproex 125 mg EC tablet 06-22 10:01: 54 Yes 125mg Take 1 tablet by mouth in the morning and 1 tablet in the evening. [facility] divalproex 250 mg EC tablet 06-22 10:01: 54 Yes 250mg Take 1 tablet by mouth in the morning and 1 tablet in the evening. [facility] apixaban 5 mg tablet 06-22 10:01: 54 Yes 5mg Take 1 tablet by mouth in the morning and 1 tablet in the evening. [facility] ergocalcife rol, vitamin D2, (ERGOCAL ORAL) 06-22 10:01: 54 Yes 1.25mg Take 1.25 mg by mouth in the morning. [facility] fluticasone -umeclidin- vilanter (TRELEGY ELLIPTA) 200-62.5-25 mcg DsDv 06-22 10:01: 54 Yes Inhale daily. [facility] carvediloL 6.25 mg tablet 06-22 10:01: 54 Yes 6.25mg Take 1 tablet by mouth in the morning and 1 tablet in the evening. Take with meals. [facility] atorvastati n 40 mg tablet 06-22 10:01: 54 Yes 40mg Take 1 tablet by mouth at bedtime. [facility] amLODIPine 10 mg tablet 06-22 10:01: 54 Yes 10mg Take 1 tablet by mouth in the morning. [facility] aspirin 81 mg chewable tablet 06-22 10:01: 54 Yes 81mg Take 1 tablet by mouth in the morning. [facility] cloNIDine 0.1 mg tablet 06-22 10:01: 54 Yes .1mg Take 1 tablet by mouth as needed. [facility] divalproex 125 mg EC tablet 06-22 10:01: 54 Yes 125mg Take 1 tablet by mouth in the morning and 1 tablet in the evening. [facility] divalproex 250 mg EC tablet 06-22 10:01: 54 Yes 250mg Take 1 tablet by mouth in the morning and 1 tablet in the evening. [facility] apixaban 5 mg tablet 06-22 10:01: 54 Yes 5mg Take 1 tablet by mouth in the morning and 1 tablet in the evening. [facility] ergocalcife rol, vitamin D2, (ERGOCAL ORAL) 06-22 10:01: 54 Yes 1.25mg Take 1.25 mg by mouth in the morning. [facility] fluticasone -umeclidin- vilanter (TRELEGY ELLIPTA) 200-62.5-25 mcg DsDv 06-22 10:01: 54 Yes Inhale daily. [facility] carvediloL 6.25 mg tablet 06-22 10:01: 54 Yes 6.25mg Take 1 tablet by mouth in the morning and 1 tablet in the evening. Take with meals. [facility] atorvastati n 40 mg tablet 06-22 10:01: 54 Yes 40mg Take 1 tablet by mouth at bedtime. [facility] amLODIPine 10 mg tablet 06-22 10:01: 54 Yes 10mg Take 1 tablet by mouth in the morning. [facility] aspirin 81 mg chewable tablet 06-22 10:01: 54 Yes 81mg Take 1 tablet by mouth in the morning. [facility] cloNIDine 0.1 mg tablet 06-22 10:01: 54 Yes .1mg Take 1 tablet by mouth as needed. [facility] divalproex 125 mg EC tablet 06-22 10:01: 54 Yes 125mg Take 1 tablet by mouth in the morning and 1 tablet in the evening. [facility] divalproex 250 mg EC tablet 06-22 10:01: 54 Yes 250mg Take 1 tablet by mouth in the morning and 1 tablet in the evening. [facility] apixaban 5 mg tablet 06-22 10:01: 54 Yes 5mg Take 1 tablet by mouth in the morning and 1 tablet in the evening. [facility] ergocalcife rol, vitamin D2, (ERGOCAL ORAL) 06-22 10:01: 54 Yes 1.25mg Take 1.25 mg by mouth in the morning. [facility] fluticasone -umeclidin- vilanter (TRELEGY ELLIPTA) 200-62.5-25 mcg DsDv 06-22 10:01: 54 Yes Inhale daily. [facility] carvediloL 6.25 mg tablet 06-22 10:01: 54 Yes 6.25mg Take 1 tablet by mouth in the morning and 1 tablet in the evening. Take with meals. [facility] atorvastati n 40 mg tablet 06-22 10:01: 54 Yes 40mg Take 1 tablet by mouth at bedtime. [facility] carvediloL 6.25 mg tablet 06-22 10:01: 54 Yes 6.25mg Take 1 tablet by mouth in the morning and 1 tablet in the evening. Take with meals. [facility] atorvastati n 40 mg tablet 06-22 10:01: 54 Yes 40mg Take 1 tablet by mouth at bedtime. [facility] amLODIPine 10 mg tablet 06-22 10:01: 54 Yes 10mg Take 1 tablet by mouth in the morning. [facility] aspirin 81 mg chewable tablet 06-22 10:01: 54 Yes 81mg Take 1 tablet by mouth in the morning. [facility] cloNIDine 0.1 mg tablet 06-22 10:01: 54 Yes .1mg Take 1 tablet by mouth as needed. [facility] divalproex 125 mg EC tablet 06-22 10:01: 54 Yes 125mg Take 1 tablet by mouth in the morning and 1 tablet in the evening. [facility] divalproex 250 mg EC tablet 06-22 10:01: 54 Yes 250mg Take 1 tablet by mouth in the morning and 1 tablet in the evening. [facility] apixaban 5 mg tablet 06-22 10:01: 54 Yes 5mg Take 1 tablet by mouth in the morning and 1 tablet in the evening. [facility] Depakote 125 mg tablet,dillan yed release Take 1 tablet twice a day by oral route. Depakote 125 mg tablet,dillan yed release Take 1 tablet twice a day by oral route. 02-04 00:00: 00 No 1 BID Depakote 125 mg tablet,del ayed release Take 1 tablet twice a day by oral route. [facility] Depakote 125 mg tablet,dillan yed release Take 1 tablet twice a day by oral route. Depakote 125 mg tablet,dillan yed release Take 1 tablet twice a day by oral route. 02-04 00:00: 00 No 1 BID Depakote 125 mg tablet,del ayed release Take 1 tablet twice a day by oral route. [facility] rivastigmin e tartrate 3 mg capsule 0 01-18 00:00: 00 Yes [id number] 01 3mg Take 1 capsule by mouth every morning and evening. [facility] divalproex (DEPAKOTE) 500 mg EC tablet 01-18 00:00: 00 Yes [id number] 01 500mg Take 1 tablet by mouth at bedtime. [facility] rivastigmin e tartrate 3 mg capsule 0 01-18 00:00: 00 Yes [id number] 01 3mg Take 1 capsule by mouth every morning and evening. [facility] divalproex (DEPAKOTE) 500 mg EC tablet 01-18 00:00: 00 Yes [id number] 01 500mg Take 1 tablet by mouth at bedtime. [facility] rivastigmin e tartrate 3 mg capsule 01-18 00:00: 00 Yes [id number] 01 3mg Take 1 capsule by mouth every morning and evening. [facility] divalproex (DEPAKOTE) 500 mg EC tablet 01-18 00:00: 00 Yes [id number] 01 500mg Take 1 tablet by mouth at bedtime. [facility] rivastigmin e tartrate 3 mg capsule 01-18 00:00: 00 Yes [id number] 01 3mg Take 1 capsule by mouth every morning and evening. [facility] divalproex (DEPAKOTE) 500 mg EC tablet 0 01-18 00:00: 00 Yes [id number] 01 500mg Take 1 tablet by mouth at bedtime. [facility] rivastigmin e tartrate 3 mg capsule 0 01-18 00:00: 00 Yes [id number] 01 3mg Take 1 capsule by mouth every morning and evening. [facility] divalproex (DEPAKOTE) 500 mg EC tablet 0 01-18 00:00: 00 Yes [id number] 01 500mg Take 1 tablet by mouth at bedtime. [facility] rivastigmin e tartrate 3 mg capsule 2022-0 01-18 00:00: 00 Yes [id number] 01 3mg Take 1 capsule by mouth every morning and evening. [facility] divalproex (DEPAKOTE) 500 mg EC tablet 0 01-18 00:00: 00 Yes [id number] 01 500mg Take 1 tablet by mouth at bedtime. [facility] rivastigmin e tartrate 3 mg capsule 0 01-18 00:00: 00 Yes [id number] 01 3mg Take 1 capsule by mouth every morning and evening. [facility] divalproex (DEPAKOTE) 500 mg EC tablet 0 01-18 00:00: 00 Yes [id number] 01 500mg Take 1 tablet by mouth at bedtime. [facility] rivastigmin e tartrate 3 mg capsule 2022-0 01-18 00:00: 00 Yes [id number] 01 3mg Take 1 capsule by mouth every morning and evening. [facility] divalproex (DEPAKOTE) 500 mg EC tablet 0 01-18 00:00: 00 Yes [id number] 01 500mg Take 1 tablet by mouth at bedtime. [facility] rivastigmin e tartrate 3 mg capsule 0 01-18 00:00: 00 Yes [id number] 01 3mg Take 1 capsule by mouth every morning and evening. [facility] divalproex (DEPAKOTE) 500 mg EC tablet 0 01-18 00:00: 00 Yes [id number] 01 500mg Take 1 tablet by mouth at bedtime. [facility] rivastigmin e tartrate 3 mg capsule 2022-0 01-18 00:00: 00 Yes [id number] 01 3mg Take 1 capsule by mouth every morning and evening. [facility] divalproex (DEPAKOTE) 500 mg EC tablet 0 01-18 00:00: 00 Yes [id number] 01 500mg Take 1 tablet by mouth at bedtime. [facility] rivastigmin e tartrate 3 mg capsule 2022-0 01-18 00:00: 00 Yes [id number] 01 3mg Take 1 capsule by mouth every morning and evening. [facility] divalproex (DEPAKOTE) 500 mg EC tablet 01-18 00:00: 00 Yes [id number] 01 500mg Take 1 tablet by mouth at bedtime. [facility] rivastigmin e 1.5 mg capsule Take 1 capsule twice a day by oral route. rivastigmin e 1.5 mg capsule Take 1 capsule twice a day by oral route. 01-11 00:00: 00 No rivastigmi ne 1.5 mg capsule Take 1 capsule twice a day by oral route. [facility] rivastigmin e 1.5 mg capsule Take 1 capsule twice a day by oral route. rivastigmin e 1.5 mg capsule Take 1 capsule twice a day by oral route. 01-11 00:00: 00 No rivastigmi ne 1.5 mg capsule Take 1 capsule twice a day by oral route. [facility] rivastigmin e tartrate 1.5 mg capsule 2021-10 00:00: 00 Yes [id number] 1.5mg Take 1 capsule by mouth every morning and evening. [facility] rivastigmin e tartrate 1.5 mg capsule 2021-10 00:00: 00 Yes [id number] 1.5mg Take 1 capsule by mouth every morning and evening. [facility] rivastigmin e tartrate 1.5 mg capsule 2021-10 00:00: 00 Yes [id number] 1.5mg Take 1 capsule by mouth every morning and evening. [facility] rivastigmin e tartrate 1.5 mg capsule 2021-10 00:00: 00 Yes [id number] 1.5mg Take 1 capsule by mouth every morning and evening. [facility] rivastigmin e tartrate 1.5 mg capsule 2021-10 00:00: 00 01-18 00:00 :00 No [id number] 1.5mg Take 1 capsule by mouth every morning and evening. [facility] rivastigmin e tartrate 1.5 mg capsule 2021-10 00:00: 00 01-18 00:00 :00 No [id number] 1.5mg Take 1 capsule by mouth every morning and evening. [facility] rivastigmin e tartrate 1.5 mg capsule 2021-10 00:00: 00 01-18 00:00 :00 No [id number] 1.5mg Take 1 capsule by mouth every morning and evening. [facility] carvediloL 6.25 mg tablet 2021-10 12:49: 21 Yes 6.25mg Take 6.25 mg by mouth in the morning and 6.25 mg in the evening. Take with meals. [facility] carvediloL 6.25 mg tablet 2021-10 12:49: 21 Yes 6.25mg Take 6.25 mg by mouth in the morning and 6.25 mg in the evening. Take with meals. [facility] carvediloL 6.25 mg tablet 2021-10 12:49: 21 Yes 6.25mg Take 6.25 mg by mouth in the morning and 6.25 mg in the evening. Take with meals. [facility] carvediloL 6.25 mg tablet 2021-10 12:49: 21 Yes 6.25mg Take 6.25 mg by mouth in the morning and 6.25 mg in the evening. Take with meals. [facility] carvediloL 6.25 mg tablet 2021-10 12:49: 21 Yes 6.25mg Take 6.25 mg by mouth in the morning and 6.25 mg in the evening. Take with meals. [facility] carvediloL 6.25 mg tablet 2021-10 12:49: 21 Yes 6.25mg Take 6.25 mg by mouth in the morning and 6.25 mg in the evening. Take with meals. [facility] carvediloL 6.25 mg tablet 2021-10 12:49: 21 Yes 6.25mg Take 6.25 mg by mouth in the morning and 6.25 mg in the evening. Take with meals. [facility] carvediloL 6.25 mg tablet 2021-10 12:49: 21 Yes 6.25mg Take 6.25 mg by mouth in the morning and 6.25 mg in the evening. Take with meals. [facility] carvediloL 6.25 mg tablet 2021-10 12:49: 21 Yes 6.25mg Take 6.25 mg by mouth in the morning and 6.25 mg in the evening. Take with meals. [facility] carvediloL 6.25 mg tablet 2021-10 12:49: 21 Yes 6.25mg Take 6.25 mg by mouth in the morning and 6.25 mg in the evening. Take with meals. [facility] carvediloL 6.25 mg tablet 2021-10 12:49: 21 Yes 6.25mg Take 6.25 mg by mouth in the morning and 6.25 mg in the evening. Take with meals. [facility] carvediloL 6.25 mg tablet 2021-10 12:49: 21 Yes 6.25mg Take 6.25 mg by mouth in the morning and 6.25 mg in the evening. Take with meals. [facility] carvediloL 6.25 mg tablet 2021-10 12:49: 21 Yes 6.25mg Take 6.25 mg by mouth in the morning and 6.25 mg in the evening. Take with meals. [facility] carvediloL 6.25 mg tablet 2021-10 09:12: 49 Yes 6.25mg Take 6.25 mg by mouth in the morning and 6.25 mg in the evening. Take with meals. [facility] atorvastati n 40 mg tablet 2021-10 09:12: 49 Yes 40mg Take 40 mg by mouth at bedtime. [facility] carvediloL 6.25 mg tablet 2021-10 09:12: 49 Yes 6.25mg Take 6.25 mg by mouth in the morning and 6.25 mg in the evening. Take with meals. [facility] atorvastati n 40 mg tablet 2021-10 09:12: 49 Yes 40mg Take 40 mg by mouth at bedtime. [facility] carvediloL 6.25 mg tablet 2021-10 09:12: 49 Yes 6.25mg Take 6.25 mg by mouth in the morning and 6.25 mg in the evening. Take with meals. [facility] atorvastati n 40 mg tablet 2021-10 09:12: 49 Yes 40mg Take 40 mg by mouth at bedtime. [facility] carvediloL 6.25 mg tablet 2021-10 09:12: 49 Yes 6.25mg Take 6.25 mg by mouth in the morning and 6.25 mg in the evening. Take with meals. [facility] atorvastati n 40 mg tablet 2021-10 09:12: 49 Yes 40mg Take 40 mg by mouth at bedtime. [facility] carvediloL 6.25 mg tablet 2021-10 09:12: 49 Yes 6.25mg Take 6.25 mg by mouth in the morning and 6.25 mg in the evening. Take with meals. [facility] atorvastati n 40 mg tablet 2021-10 09:12: 49 Yes 40mg Take 40 mg by mouth at bedtime. [facility] carvediloL 6.25 mg tablet 2021-10 09:12: 49 Yes 6.25mg Take 6.25 mg by mouth in the morning and 6.25 mg in the evening. Take with meals. [facility] atorvastati n 40 mg tablet 2021-10 09:12: 49 Yes 40mg Take 40 mg by mouth at bedtime. [facility] atorvastati n 40 mg tablet 2021-10 09:12: 49 Yes 40mg Take 40 mg by mouth at bedtime. [facility] atorvastati n 40 mg tablet 2021-10 09:12: 49 Yes 40mg Take 40 mg by mouth at bedtime. [facility] atorvastati n 40 mg tablet 2021-10 09:12: 49 Yes 40mg Take 40 mg by mouth at bedtime. [facility] atorvastati n 40 mg tablet 2021-10 09:12: 49 Yes 40mg Take 40 mg by mouth at bedtime. [facility] atorvastati n 40 mg tablet 2021-10 09:12: 49 Yes 40mg Take 40 mg by mouth at bedtime. [facility] atorvastati n 40 mg tablet 2021-10 09:12: 49 Yes 40mg Take 40 mg by mouth at bedtime. [facility] atorvastati n 40 mg tablet 2021-10 09:12: 49 Yes 40mg Take 40 mg by mouth at bedtime. [facility] atorvastati n 40 mg tablet 2021-10 09:12: 49 Yes 40mg Take 40 mg by mouth at bedtime. [facility] atorvastati n 40 mg tablet 2021-10 09:12: 49 Yes 40mg Take 40 mg by mouth at bedtime. [facility] atorvastati n 40 mg tablet 2021-10 09:12: 49 Yes 40mg Take 40 mg by mouth at bedtime. [facility] atorvastati n 40 mg tablet 2021-10 09:12: 49 Yes 40mg Take 40 mg by mouth at bedtime. [facility] atorvastati n 40 mg tablet 2021-10 09:12: 49 Yes 40mg Take 40 mg by mouth at bedtime. [facility] atorvastati n 40 mg tablet 2021-10 09:12: 49 Yes 40mg Take 40 mg by mouth at bedtime. [facility] carvediloL (COREG) 6.25 mg tablet 05-19 12:55: 25 Yes 6.25mg Take 6.25 mg by mouth in the morning and 6.25 mg in the evening. Take with meals. [facility] atorvastati n 40 mg tablet 05-19 12:55: 25 Yes 40mg Take 40 mg by mouth at bedtime. [facility] carvediloL (COREG) 6.25 mg tablet 05-19 12:55: 25 Yes 6.25mg Take 6.25 mg by mouth in the morning and 6.25 mg in the evening. Take with meals. [facility] atorvastati n 40 mg tablet 05-19 12:55: 25 Yes 40mg Take 40 mg by mouth at bedtime. [facility] carvediloL (COREG) 6.25 mg tablet 05-19 12:55: 25 Yes 6.25mg Take 6.25 mg by mouth in the morning and 6.25 mg in the evening. Take with meals. [facility] atorvastati n 40 mg tablet 05-19 12:55: 25 Yes 40mg Take 40 mg by mouth at bedtime. [facility] carvediloL (COREG) 6.25 mg tablet 05-19 12:55: 25 Yes 6.25mg Take 6.25 mg by mouth in the morning and 6.25 mg in the evening. Take with meals. [facility] atorvastati n 40 mg tablet 05-19 12:55: 25 Yes 40mg Take 40 mg by mouth at bedtime. [facility] carvediloL (COREG) 6.25 mg tablet 05-19 12:55: 25 Yes 6.25mg Take 6.25 mg by mouth in the morning and 6.25 mg in the evening. Take with meals. [facility] atorvastati n 40 mg tablet 05-19 12:55: 25 Yes 40mg Take 40 mg by mouth at bedtime. [facility] carvediloL (COREG) 6.25 mg tablet 05-19 12:55: 25 Yes 6.25mg Take 6.25 mg by mouth in the morning and 6.25 mg in the evening. Take with meals. [facility] atorvastati n 40 mg tablet 05-19 12:55: 25 Yes 40mg Take 40 mg by mouth at bedtime. [facility] carvediloL (COREG) 6.25 mg tablet 05-19 12:55: 25 Yes 6.25mg Take 6.25 mg by mouth in the morning and 6.25 mg in the evening. Take with meals. [facility] atorvastati n 40 mg tablet 05-19 12:55: 25 Yes 40mg Take 40 mg by mouth at bedtime. [facility] carvediloL (COREG) 6.25 mg tablet 05-19 12:55: 25 Yes 6.25mg Take 6.25 mg by mouth in the morning and 6.25 mg in the evening. Take with meals. [facility] atorvastati n 40 mg tablet 05-19 12:55: 25 Yes 40mg Take 40 mg by mouth at bedtime. [facility] carvediloL (COREG) 6.25 mg tablet 05-19 12:55: 25 Yes 6.25mg Take 6.25 mg by mouth in the morning and 6.25 mg in the evening. Take with meals. [facility] atorvastati n 40 mg tablet 05-19 12:55: 25 Yes 40mg Take 40 mg by mouth at bedtime. [facility] carvediloL (COREG) 6.25 mg tablet 05-19 12:55: 25 Yes 6.25mg Take 6.25 mg by mouth in the morning and 6.25 mg in the evening. Take with meals. [facility] atorvastati n 40 mg tablet 05-19 12:55: 25 Yes 40mg Take 40 mg by mouth at bedtime. [facility] carvediloL (COREG) 6.25 mg tablet 05-19 12:55: 25 Yes 6.25mg Take 6.25 mg by mouth in the morning and 6.25 mg in the evening. Take with meals. [facility] atorvastati n 40 mg tablet 05-19 12:55: 25 Yes 40mg Take 40 mg by mouth at bedtime. [facility] carvediloL (COREG) 6.25 mg tablet 05-19 12:55: 25 Yes 6.25mg Take 6.25 mg by mouth in the morning and 6.25 mg in the evening. Take with meals. [facility] atorvastati n 40 mg tablet 05-19 12:55: 25 Yes 40mg Take 40 mg by mouth at bedtime. [facility] carvediloL (COREG) 6.25 mg tablet 05-19 12:55: 25 Yes 6.25mg Take 6.25 mg by mouth in the morning and 6.25 mg in the evening. Take with meals. [facility] atorvastati n 40 mg tablet 05-19 12:55: 25 Yes 40mg Take 40 mg by mouth at bedtime. [facility] NaCl 0.9% (NS) bolus infusion 1,000 mL 05-02 18:15: 00 05-02 19:04 :00 No 1000mL at 999 mL/hr, 1,000 mL, IV Infusion, ONCE, 1 dose, On 05/02/22 at 1315, ARUNA [facility] No known medications 05-02 15:35: 06 No No known medication s [facility] No known medications 05-02 15:35: 06 No No known medication s [facility] ketorolac (TORADOL) tablet 10 mg 05-01 15:00: 00 05-01 15:30 :00 No 10mg 10 mg, Oral, ONCE, 1 dose, On Wed05/01/22 at 1000, Routine [facility] ketorolac (TORADOL) tablet 10 mg 05-01 14:56: 04 Yes 10mg 10 mg, Oral, Q6HPRN, Starting on Wed05/01/22 at 0956, Until Discontinu ed, Routine, Pain (scale 1-3), Pain (scale 4-6) [facility] atorvastati n (LIPITOR) tablet 40 mg 05-01 02:00: 00 Yes 40mg 40 mg, Oral, QHS, First dose on Brie 04/30/22 at 2100, Until Discontinu ed, Routine [facility] heparin (porcine) injection 5,000 Units 05-01 01:00: 00 Yes 5000U 5,000 Units, Subcutaneo us, Q12H, First dose on Brie 04/30/22 at 2000, Until Discontinu ed, Routine [facility] atorvastati n 40 mg tablet 05-01 00:00: 00 05-16 04:59 :00 No [id number] 40mg Take 1 tablet by mouth at bedtime for 14 days. [facility] carvediloL 6.25 mg tablet 05-01 00:00: 00 05-16 04:59 :00 No [id number] 6.25mg Take 1 tablet by mouth 2 (two) times daily with meals for 14 days. [facility] atorvastati n 40 mg tablet 05-01 00:00: 00 05-16 04:59 :00 No [id number] 40mg Take 1 tablet by mouth at bedtime for 14 days. [facility] carvediloL 6.25 mg tablet 05-01 00:00: 00 05-16 04:59 :00 No [id number] 6.25mg Take 1 tablet by mouth 2 (two) times daily with meals for 14 days. [facility] atorvastati n 40 mg tablet 05-01 00:00: 00 05-16 04:59 :00 No [id number] 40mg Take 1 tablet by mouth at bedtime for 14 days. [facility] carvediloL 6.25 mg tablet 05-01 00:00: 00 05-16 04:59 :00 No [id number] 6.25mg Take 1 tablet by mouth 2 (two) times daily with meals for 14 days. [facility] atorvastati n 40 mg tablet 05-01 00:00: 00 05-16 04:59 :00 No [id number] 40mg Take 1 tablet by mouth at bedtime for 14 days. [facility] carvediloL 6.25 mg tablet 05-01 00:00: 00 05-16 04:59 :00 No [id number] 6.25mg Take 1 tablet by mouth 2 (two) times daily with meals for 14 days. [facility] atorvastati n 40 mg tablet 05-01 00:00: 00 05-16 04:59 :00 No [id number] 40mg Take 1 tablet by mouth at bedtime for 14 days. [facility] carvediloL 6.25 mg tablet 05-01 00:00: 00 05-16 04:59 :00 No [id number] 6.25mg Take 1 tablet by mouth 2 (two) times daily with meals for 14 days. [facility] atorvastati n 40 mg tablet 05-01 00:00: 00 05-16 04:59 :00 No [id number] 40mg Take 1 tablet by mouth at bedtime for 14 days. [facility] carvediloL 6.25 mg tablet 05-01 00:00: 00 05-16 04:59 :00 No [id number] 6.25mg Take 1 tablet by mouth 2 (two) times daily with meals for 14 days. [facility] naproxen 250 mg tablet 05-01 00:00: 00 05-09 04:59 :00 No [id number] 250mg Take 1 tablet by mouth 2 (two) times daily as needed for Pain (scale 4-6) for up to 7 days. [facility] naproxen 250 mg tablet 05-01 00:00: 00 05-09 04:59 :00 No [id number] 250mg Take 1 tablet by mouth 2 (two) times daily as needed for Pain (scale 4-6) for up to 7 days. [facility] naproxen 250 mg tablet 05-01 00:00: 00 05-09 04:59 :00 No [id number] 250mg Take 1 tablet by mouth 2 (two) times daily as needed for Pain (scale 4-6) for up to 7 days. [facility] naproxen 250 mg tablet 05-01 00:00: 00 05-09 04:59 :00 No [id number] 250mg Take 1 tablet by mouth 2 (two) times daily as needed for Pain (scale 4-6) for up to 7 days. [facility] naproxen 250 mg tablet 05-01 00:00: 00 05-09 04:59 :00 No [id number] 250mg Take 1 tablet by mouth 2 (two) times daily as needed for Pain (scale 4-6) for up to 7 days. [facility] D5W IV infusion 1,000 mL 04-30 15:15: 00 04-30 14:13 :00 No 1000mL at 75 mL/hr, IV Infusion, ONCE, 1 dose, On Brie 04/30/22 at 1015, Routine [facility] NaCl 0.9% (NS) bolus infusion 1,000 mL 04-30 04:15: 00 04-30 12:00 :13 No 1000mL at 100 mL/hr, 1,000 mL, IV Piggyback, CONTINUOUS , Starting on Wed04/29/22 at 2315, Until Wed04/30/22 at 0700, ARUNA [facility] carvediloL (COREG) tablet 6.25 mg 04-30 03:30: 00 Yes 6.25mg 6.25 mg, Oral, BID MEALS, First dose on Wed04/29/22 at 2230, Until Discontinu ed, Routine [facility] HEPARIN SODIUM (PORCINE) 1,000 UNIT/ML BOLUS ACS ORDER SET 04-30 03:30: 00 04-30 05:27 :00 No 60U/kg 3,810 Units (60 Units/kg ?63.5 kg), IV Push, ONCE, 1 dose, On Wed04/29/22 at 2230, ARUNA [facility] heparin 25,000 Units/250 mL (Premixed Bag) in 0.45 % NS 04-30 03:18: 19 04-30 14:43 :29 No 12U/kg/ h 12 Units/kg/h r ?63.5 kg (7.62 mL/hr), IV Infusion, TITRATE, Parameters in Admin. Instr., Starting on Wed04/29/22 at 2218
CA UTION - If LMWH given in ER, AVOID bolus and start next dose/drip 12 hrs after ER dosage.&nb sp; M ust program rate using programmab le infusion pump.&nbsp ; Callie ck with the ordering provider first prior to any administra tion should the patient be on existing/a dditional anticoagul ant therapy. Rang e, Dosing and Testing: &nbs p;FOR [place], [facility], AND [facility] ONLY &nbs p; - aPTT < 35: & nbsp;Bolus 5000 units, increase rate 300 units/hr&n bsp; - aPTT 35-44:&nbs p; Reji larry 3000 units, increase rate 200 units/hr&n bsp; - aPTT 45-54:&nbs p; In crease rate [...] CAMPUS ONLY - aPTT < 40: & nbsp;Bolus 5000 units, increase rate 300 [...] ADJUST INITIAL BOLUS OR INITIAL INFUSION RATE.
[facility] acetaminoph en (TYLENOL) tablet 650 mg 04-30 01:46: 25 Yes 650mg 650 mg, Oral, Q6HPRN, Starting on Wed04/29/22 at 2046, Until Discontinu ed, Routine, Pain (scale 1-3) [facility] NaCl 0.9% (NS) bolus infusion 1,000 mL 04-29 22:48: 00 04-30 02:01 :00 No 1000mL at 999 mL/hr, 1,000 mL, IV Piggyback, ONCE, 1 dose, On Wed04/29/22 at 1800, STAT [facility] diltiazem (CARDIZEM) tablet 30 mg 04-29 22:46: 00 04-29 23:18 :00 No 30mg 30 mg, Oral, ONCE, 1 dose, On Wed04/29/22 at 1800, ARUNA [facility] diltiazem (CARDIZEM IV) injection 10 mg 04-29 22:45: 00 04-29 23:59 :00 No 10mg 10 mg, Slow IV Push, ONCE, 1 dose, On Wed04/29/22 at 1800, STAT
Fa culty member approving Restricted medication : DALTON CHINO [facility] aspirin chewable tablet 324 mg 04-29 22:30: 00 04-29 23:18 :00 No 324mg 324 mg, Oral, ONCE, 1 dose, On Wed04/29/22 at 1730, STAT [facility] lisinopril- hydrochloro thiazide (PRINZIDE,Z ESTORETIC) 20-25 mg per tablet 04-29 20:46: 48 04-29 00:00 :00 No 1{tbl} Take 1 Tab by mouth daily. [facility] amLODIPine (NORVASC) 5 mg tablet 04-29 20:46: 48 04-29 00:00 :00 No 5mg Take 5 mg by mouth daily. [facility] atorvastati n (LIPITOR) 20 mg tablet 04-29 20:46: 48 04-29 00:00 :00 No 20mg Take 20 mg by mouth at bedtime. [facility] clopidogrel (PLAVIX) 75 mg tablet 04-29 20:46: 48 04-29 00:00 :00 No 75mg Take 75 mg by mouth daily. [facility] acetaminoph en (TYLENOL EXTRA STRENGTH) 500 mg tablet 04-29 20:46: 48 04-29 00:00 :00 No 1000mg Take 1,000 mg by mouth every 6 (six) hours as needed for Pain. [facility] cephALEXin (KEFLEX) 500 mg capsule 04-29 20:46: 48 04-29 00:00 :00 No 500mg Take 500 mg by mouth 4 (four) times daily. [facility] NaCl 0.9% (NS) bolus infusion 1,000 mL 04-29 00:45: 00 04-29 02:00 :00 No 1000mL at 999 mL/hr, 1,000 mL, IV Infusion, ONCE, 1 dose, On Wed04/28/22 at 1945, STAT [facility] aspirin tablet 325 mg 04-28 23:45: 00 04-29 00:35 :00 No 325mg 325 mg, Oral, ONCE, 1 dose, On Wed04/28/22 at 1845, STAT [facility] diltiazem (CARDIZEM IV) injection 20 mg 04-28 23:45: 00 04-28 23:37 :00 No 20mg 20 mg, IV Push, ONCE, 1 dose, On Wed04/28/22 at 1845, STAT
Fa culty member approving Restricted medication : BERNARDO RODRÍGUEZ [facility] lisinopril- hydrochloro thiazide (PRINZIDE,Z ESTORETIC) 20-25 mg per tablet 06-28 15:32: 57 Yes 1{tbl} Take 1 Tab by mouth daily. [facility] amLODIPine (NORVASC) 5 mg tablet 06-28 15:32: 57 Yes 5mg Take 5 mg by mouth daily. [facility] atorvastati n (LIPITOR) 20 mg tablet 06-28 15:32: 57 Yes 20mg Take 20 mg by mouth at bedtime. [facility] clopidogrel (PLAVIX) 75 mg tablet 06-28 15:32: 57 Yes 75mg Take 75 mg by mouth daily. [facility] acetaminoph en (TYLENOL EXTRA STRENGTH) 500 mg tablet 06-28 15:32: 57 Yes 1000mg Take 1,000 mg by mouth every 6 (six) hours as needed for Pain. [facility] cephALEXin (KEFLEX) 500 mg capsule 06-28 15:32: 57 Yes 500mg Take 500 mg by mouth 4 (four) times daily. [facility] acetaminoph en 300 mg-codeine 30 [...] oral route as needed for 10 days. [facility] aspirin 81 mg tablet,dillan yed release Take 1 tablet every day by oral route. aspirin 81 mg tablet,dillan yed release Take 1 tablet every day by oral route. No 1 Q1D aspirin 81 mg tablet,del ayed release Take 1 tablet every day by oral route. [facility] atorvastati n 40 mg tablet Take 1 tablet every day by oral route. atorvastati n 40 mg tablet Take 1 tablet every day by oral route. No 1 Q1D atorvastat in 40 mg tablet Take 1 tablet every day by oral route. [facility] carvedilol 6.25 mg tablet Take 1 tablet twice a day by oral route. carvedilol 6.25 mg tablet Take 1 tablet twice a day by oral route. No 1 BID carvedilol 6.25 mg tablet Take 1 tablet twice a day by oral route. [facility] cephalexin 500 mg tablet Take 1 tablet every 12 hours by oral route. cephalexin 500 mg tablet Take 1 tablet every 12 hours by oral route. No 1 Q12H cephalexin 500 mg tablet Take 1 tablet every 12 hours by oral route. [facility] ipratropium 0.5 mg-albutero l 2.5 mg/2.5 mL [...] 1 tablet every day by oral route. [facility] atorvastati n 40 mg tablet Take 1 tablet every day by oral route. atorvastati n 40 mg tablet Take 1 tablet every day by oral route. No 1 Q1D atorvastat in 40 mg tablet Take 1 tablet every day by oral route. [facility] carvedilol 6.25 mg tablet Take 1 tablet twice a day by oral route. carvedilol 6.25 mg tablet Take 1 tablet twice a day by oral route. No 1 BID carvedilol 6.25 mg tablet Take 1 tablet twice a day by oral route. [facility] ipratropium 0.5 mg-albutero l 2.5 mg/2.5 [...] day by oral route for [address] [facility] aspirin 81 mg tablet,dillan yed release Take 1 tablet every day by oral route. aspirin 81 mg tablet,dillan yed release Take 1 tablet every day by oral route. No 1 Q1D aspirin 81 mg tablet,del ayed release Take 1 tablet every day by oral route. [facility] atorvastati n 40 mg tablet Take 1 tablet every day by oral route. atorvastati n 40 mg tablet Take 1 tablet every day by oral route. No 1 Q1D atorvastat in 40 mg tablet Take 1 tablet every day by oral route. [facility] carvedilol 6.25 mg tablet Take 1 tablet twice a day by oral route. carvedilol 6.25 mg tablet Take 1 tablet twice a day by oral route. No 1 BID carvedilol 6.25 mg tablet Take 1 tablet twice a day by oral route. [facility] ipratropium 0.5 mg-albutero l 2.5 mg/2.5 mL [...] 6 hours by inhalation route as needed. [facility] rivastigmin e 1.5 mg capsule Take 1 capsule twice a day by oral route. rivastigmin e 1.5 mg capsule Take 1 capsule twice a day by oral route. No 1capsul e(s) BID rivastigmi ne 1.5 mg capsule Take 1 capsule twice a day by oral route. [facility] acetaminoph en 300 mg-codeine 30 mg tablet [...] oral route as needed for [address] [facility] apixaban 5 mg tablet Take 1 tablet twice a day by oral route for 30 days. apixaban 5 mg tablet Take 1 tablet twice a day by oral route for 30 days. No 1 BID apixaban 5 mg tablet Take 1 tablet twice a day by oral route for [address] [facility] aspirin 81 mg tablet,dillan yed release Take 1 tablet every day by oral route. aspirin 81 mg tablet,dillan yed release Take 1 tablet every day by oral route. No 1 Q1D aspirin 81 mg tablet,del ayed release Take 1 tablet every day by oral route. [facility] atorvastati n 40 mg tablet Take 1 tablet every day by oral route. atorvastati n 40 mg tablet Take 1 tablet every day by oral route. No 1 Q1D atorvastat in 40 mg tablet Take 1 tablet every day by oral route. [facility] carvedilol 6.25 mg tablet Take 1 tablet twice a day by oral route. carvedilol 6.25 mg tablet Take 1 tablet twice a day by oral route. No 1 BID carvedilol 6.25 mg tablet Take 1 tablet twice a day by oral route. [facility] ipratropium 0.5 mg-albutero l 2.5 mg/2.5 mL [...] 6 hours by inhalation route as needed. [facility] rivastigmin e 1.5 mg capsule Take 1 capsule twice a day by oral route. rivastigmin e 1.5 mg capsule Take 1 capsule twice a day by oral route. No 1capsul e(s) BID rivastigmi ne 1.5 mg capsule Take 1 capsule twice a day by oral route. [facility] acetaminoph en 300 mg-codeine 30 mg tablet [...] day by oral route for 30 days. [facility] aspirin 81 mg tablet,dillan yed release Take 1 tablet every day by oral route. aspirin 81 mg tablet,dillan yed release Take 1 tablet every day by oral route. No 1 Q1D aspirin 81 mg tablet,del ayed release Take 1 tablet every day by oral route. [facility] atorvastati n 40 mg tablet Take 1 tablet every day by oral route. atorvastati n 40 mg tablet Take 1 tablet every day by oral route. No 1 Q1D atorvastat in 40 mg tablet Take 1 tablet every day by oral route. [facility] carvedilol 6.25 mg tablet Take 1 tablet twice a day by oral route. carvedilol 6.25 mg tablet Take 1 tablet twice a day by oral route. No 1 BID carvedilol 6.25 mg tablet Take 1 tablet twice a day by oral route. [facility] diclofenac 1 % topical gel APPLY 2 GRAMS TO THE AFFECTED AREA(S) BY TOPICAL ROUTE 2 TIMES PER DAY (KNEES) diclofenac 1 % topical gel APPLY 2 GRAMS TO THE AFFECTED AREA(S) BY TOPICAL ROUTE 2 TIMES PER DAY (KNEES) No diclofenac 1 % topical gel APPLY 2 GRAMS TO THE AFFECTED AREA(S) BY TOPICAL ROUTE 2 TIMES PER DAY (KNEES) [facility] ipratropium 0.5 mg-albutero l 2.5 mg/2.5 [...] 6 hours by inhalation route as needed. [facility] rivastigmin e 1.5 mg capsule Take 1 capsule twice a day by oral route. rivastigmin e 1.5 mg capsule Take 1 capsule twice a day by oral route. No 1capsul e(s) BID rivastigmi ne 1.5 mg capsule Take 1 capsule twice a day by oral route. [facility] Medical acetaminoph en 300 mg-codeine 30 mg [...] oral route as needed for [address] [facility] aspirin 81 mg tablet,dillan yed release Take 1 tablet every day by oral route. aspirin 81 mg tablet,dillan yed release Take 1 tablet every day by oral route. No 1 Q1D aspirin 81 mg tablet,del ayed release Take 1 tablet every day by oral route. [facility] atorvastati n 40 mg tablet Take 1 tablet every day by oral route. atorvastati n 40 mg tablet Take 1 tablet every day by oral route. No 1 Q1D atorvastat in 40 mg tablet Take 1 tablet every day by oral route. [facility] carvedilol 6.25 mg tablet Take 1 tablet twice a day by oral route. carvedilol 6.25 mg tablet Take 1 tablet twice a day by oral route. No carvedilol 6.25 mg tablet Take 1 tablet twice a day by oral route. [facility] cholecalcif marlee (vitamin D3) 1,250 mcg [...] TOPICAL ROUTE 2 TIMES PER DAY (KNEES) [facility] Eliquis 5 mg tablet Take 1 [...] 6 hours by inhalation route as needed. [facility] rivastigmin e 1.5 mg capsule Take 1 capsule twice a day by oral route. rivastigmin e 1.5 mg capsule Take 1 capsule twice a day by oral route. No 1capsul e(s) BID rivastigmi ne 1.5 mg capsule Take 1 capsule twice a day by oral route. [facility] acetaminoph en 300 mg-codeine 30 mg [...] oral route as needed for [address] [facility] aspirin 81 mg tablet,dillan yed release Take 1 tablet every day by oral route. aspirin 81 mg tablet,dillan yed release Take 1 tablet every day by oral route. No 1 Q1D aspirin 81 mg tablet,del ayed release Take 1 tablet every day by oral route. [facility] atorvastati n 40 mg tablet Take [...] 2 TIMES PER DAY (KNEES) [facility] divalproex 500 mg tablet,dillan yed release divalproex 500 mg tablet,dillan yed release No divalproex 500 mg tablet,del ayed release [facility] divalproex ER 500 mg tablet,exte nded release 24 hr divalproex ER 500 mg tablet,exte nded release 24 hr No divalproex ER 500 mg tablet,ext ended release 24 hr [facility] Eliquis 5 mg tablet Take 1 tablet twice a day by oral route for 30 days. Eliquis 5 mg tablet Take 1 tablet twice a day by oral route for 30 days. No Eliquis 5 mg tablet Take 1 tablet twice a day by oral route for 30 days. [facility] ipratropium 0.5 mg-albutero l 2.5 mg/2.5 [...] 6 hours by inhalation route as needed. [facility] rivastigmin e 1.5 mg capsule Take 1 capsule twice a day by oral route. rivastigmin e 1.5 mg capsule Take 1 capsule twice a day by oral route. No rivastigmi ne 1.5 mg capsule Take 1 capsule twice a day by oral route. [facility] rivastigmin e 3 mg capsule rivastigmin e 3 mg capsule No rivastigmi ne [address] [facility] acetaminoph en 300 mg-codeine 30 mg [...] oral route as needed for [address] [facility] atorvastati n 40 mg tablet Take 1 tablet every day by oral route. atorvastati n 40 mg tablet Take 1 tablet every day by oral route. No 1 Q1D atorvastat in 40 mg tablet Take 1 tablet every day by oral route. [facility] acetaminoph en 300 mg-codeine 30 mg [...] oral route as needed for [address] [facility] carvedilol 6.25 mg tablet Take 1 tablet twice a day by oral route. carvedilol 6.25 mg tablet Take 1 tablet twice a day by oral route. No 1 BID carvedilol 6.25 mg tablet Take 1 tablet twice a day by oral route. [facility] aspirin 81 mg tablet,dillan yed release Take 1 tablet every day by oral route. aspirin 81 mg tablet,dillan yed release Take 1 tablet every day by oral route. No 1 Q1D aspirin 81 mg tablet,del ayed release Take 1 tablet every day by oral route. [facility] atorvastati n 40 mg tablet Take 1 tablet every day by oral route. atorvastati n 40 mg tablet Take 1 tablet every day by oral route. No atorvastat in 40 mg tablet Take 1 tablet every day by oral route. [facility] carvedilol 6.25 mg tablet Take 1 tablet twice a day by oral route. carvedilol 6.25 mg tablet Take 1 tablet twice a day by oral route. No carvedilol 6.25 mg tablet Take 1 tablet twice a day by oral route. [facility] cholecalcif marlee (vitamin D3) 1,250 mcg [...] week by oral route for 90 days. [facility] Depakote 250 mg tablet,dillan yed release Take 1 tablet twice a day by oral route. Depakote 250 mg tablet,dillan yed release Take 1 tablet twice a day by oral route. No 1 BID Depakote 250 mg tablet,del ayed release Take 1 tablet twice a day by oral route. [facility] diclofenac 1 % topical gel APPLY 2 GRAMS TO THE AFFECTED AREA(S) BY TOPICAL ROUTE 2 TIMES PER DAY (KNEES) diclofenac 1 % topical gel APPLY 2 GRAMS TO THE AFFECTED AREA(S) BY TOPICAL ROUTE 2 TIMES PER DAY (KNEES) No diclofenac 1 % topical gel APPLY 2 GRAMS TO THE AFFECTED AREA(S) BY TOPICAL ROUTE 2 TIMES PER DAY (KNEES) [facility] Eliquis 5 mg tablet Take 1 tablet twice a day by oral route for 30 days. Eliquis 5 mg tablet Take 1 tablet twice a day by oral route for 30 days. No Eliquis 5 mg tablet Take 1 tablet twice a day by oral route for 30 days. [facility] ipratropium 0.5 mg-albutero l 2.5 mg/2.5 mL [...] by inhalation route as needed. [facility] cephalexin 500 mg tablet Take 1 tablet every 12 hours by oral route. cephalexin 500 mg tablet Take 1 tablet every 12 hours by oral route. No 1 Q12H cephalexin 500 mg tablet Take 1 tablet every 12 hours by oral route. [facility] ipratropium 0.5 mg-albutero l 2.5 [...] 6 hours by inhalation route as needed. [facility] acetaminoph en 300 mg-codeine 30 mg [...] oral route as needed for [address] [facility] aspirin 81 mg tablet,dillan yed release Take 1 tablet every day by oral route. aspirin 81 mg tablet,dillan yed release Take 1 tablet every day by oral route. No 1 Q1D aspirin 81 mg tablet,del ayed release Take 1 tablet every day by oral route. [facility] atorvastati n 40 mg tablet Take [...] a day by oral route. [facility] diclofenac 1 % topical gel [...] a day by oral route. [facility] amlodipine 10 mg tablet Take 1 tablet every day by oral route. amlodipine 10 mg tablet Take 1 tablet every day by oral route. No amlodipine 10 mg tablet Take 1 tablet every day by oral route. [facility] aspirin 81 mg tablet,dillan yed [...] every day by oral route. [facility] cephalexin 500 mg tablet Take 1 tablet every 12 hours by oral route. cephalexin 500 mg tablet Take 1 tablet every 12 hours by oral route. No 1 Q12H cephalexin 500 mg tablet Take 1 tablet every 12 hours by oral route. [facility] carvedilol 6.25 mg tablet Take 1 tablet twice a day by oral route. carvedilol 6.25 mg tablet Take 1 tablet twice a day by oral route. No carvedilol 6.25 mg tablet Take 1 tablet twice a day by oral route. [facility] clonidine HCl 0.1 mg tablet Take 1 tablet every day by oral route as needed. clonidine HCl 0.1 mg tablet Take 1 tablet every day by oral route as needed. No 1 Q1D clonidine HCl 0.1 mg tablet Take 1 tablet every day by oral route as needed. [facility] diclofenac 1 % topical gel [...] 2 TIMES PER DAY (KNEES) [facility] divalproex 250 mg tablet,dillan yed release divalproex 250 mg tablet,dillan yed release No divalproex 250 mg tablet,del ayed release [facility] Eliquis 5 mg tablet Take 1 tablet twice a day by oral route for 30 days. Eliquis 5 mg tablet Take 1 tablet twice a day by oral route for 30 days. No Eliquis 5 mg tablet Take 1 tablet twice a day by oral route for 30 days. [facility] ergocalcife rol (vitamin D2) 1,250 mcg (50,000 unit) capsule Take 1 unit every month by oral route for 28 days. ergocalcife rol (vitamin D2) 1,250 mcg (50,000 unit) capsule Take 1 unit every month by oral route for 28 days. No ergocalcif marlee (vitamin D2) 1,250 mcg (50,000 unit) capsule Take 1 unit every month by oral route for 28 days. [facility] ipratropium 0.5 mg-albutero l 3 mg (2.5 mg base)/3 mL nebulizatio n soln Inhale 3 mL 4 times a day by nebulizatio n route as needed. ipratropium 0.5 mg-albutero l 3 mg (2.5 mg base)/3 mL nebulizatio n soln Inhale 3 mL 4 times a day by nebulizatio n route as needed. No 3mL QID ipratropiu m 0.5 mg-albuter ol 3 mg (2.5 mg base)/3 mL nebulizati on soln Inhale 3 mL 4 times a day by nebulizati on route as needed. [facility] lactulose 10 gram/15 mL oral solution lactulose 10 gram/15 mL oral solution No lactulose 10 gram/15 mL oral solution [facility] lidocaine 5 % topical patch lidocaine 5 % topical patch No lidocaine 5 % topical patch [facility] mirtazapine 7.5 mg tablet mirtazapine 7.5 mg tablet No mirtazapin e 7.5 mg tablet [facility] ipratropium 0.5 mg-albutero l 2.5 [...] by inhalation route as needed. [facility] potassium chloride ER 10 mEq tablet,exte nded release(par t/cryst) potassium chloride ER 10 mEq tablet,exte nded release(par t/cryst) No potassium chloride ER 10 mEq tablet,ext ended release(pa rt/cryst) [facility] Trelegy Ellipta 200 mcg-62.5 mcg-25 mcg powder for inhalation Inhale 1 puff every day by inhalation route for 30 days. Trelegy Ellipta 200 mcg-62.5 mcg-25 mcg powder for inhalation Inhale 1 puff every day by inhalation route for 30 days. No Trelegy Ellipta 200 mcg-62.5 mcg-25 mcg powder for inhalation Inhale 1 puff every day by inhalation route for [address] [facility] amlodipine 10 mg tablet Take 1 tablet every day by oral route. amlodipine 10 mg tablet Take 1 tablet every day by oral route. No amlodipine 10 mg tablet Take 1 tablet every day by oral route. [facility] aspirin 81 mg tablet,dillan yed release Take 1 tablet every day by oral route. aspirin 81 mg tablet,dillan yed release Take 1 tablet every day by oral route. No 1 Q1D aspirin 81 mg tablet,del ayed release Take 1 tablet every day by oral route. [facility] atorvastati n 40 mg tablet Take 1 tablet every day by oral route. atorvastati n 40 mg tablet Take 1 tablet every day by oral route. No atorvastat in 40 mg tablet Take 1 tablet every day by oral route. [facility] carvedilol 6.25 mg tablet Take 1 tablet twice a day by oral route. carvedilol 6.25 mg tablet Take 1 tablet twice a day by oral route. No carvedilol 6.25 mg tablet Take 1 tablet twice a day by oral route. [facility] clonidine HCl 0.1 mg tablet Take 1 tablet every day by oral route as needed. clonidine HCl 0.1 mg tablet Take 1 tablet every day by oral route as needed. No 1 Q1D clonidine HCl 0.1 mg tablet Take 1 tablet every day by oral route as needed. [facility] diclofenac 1 % topical gel APPLY 2 GRAMS TO THE AFFECTED AREA(S) BY TOPICAL ROUTE 2 TIMES PER DAY (KNEES) diclofenac 1 % topical gel APPLY 2 GRAMS TO THE AFFECTED AREA(S) BY TOPICAL ROUTE 2 TIMES PER DAY (KNEES) No diclofenac 1 % topical gel APPLY 2 GRAMS TO THE AFFECTED AREA(S) BY TOPICAL ROUTE 2 TIMES PER DAY (KNEES) [facility] divalproex 250 mg tablet,dillan yed release divalproex 250 mg tablet,dillan yed release No divalproex 250 mg tablet,del ayed release [facility] Eliquis 5 mg tablet Take 1 tablet twice a day by oral route for 30 days. Eliquis 5 mg tablet Take 1 tablet twice a day by oral route for 30 days. No Eliquis 5 mg tablet Take 1 tablet twice a day by oral route for [address] [facility] ergocalcife rol (vitamin D2) 1,250 mcg (50,000 unit) capsule Take 1 unit every month by oral route for 28 days. ergocalcife rol (vitamin D2) 1,250 mcg (50,000 unit) capsule Take 1 unit every month by oral route for 28 days. No ergocalcif marlee (vitamin D2) 1,250 mcg (50,000 unit) capsule Take 1 unit every month by oral route for 28 days. [facility] ipratropium 0.5 mg-albutero l 3 mg (2.5 mg base)/3 mL nebulizatio n soln Inhale 3 mL 4 times a day by nebulizatio n route as needed. ipratropium 0.5 mg-albutero l 3 mg (2.5 mg base)/3 mL nebulizatio n soln Inhale 3 mL 4 times a day by nebulizatio n route as needed. No 3mL QID ipratropiu m 0.5 mg-albuter ol 3 mg (2.5 mg base)/3 mL nebulizati on soln Inhale 3 mL 4 times a day by nebulizati on route as needed. [facility] lactulose 10 gram/15 mL oral solution lactulose 10 gram/15 mL oral solution No lactulose 10 gram/15 mL oral solution [facility] lidocaine 5 % topical patch lidocaine 5 % topical patch No lidocaine 5 % topical patch [facility] mirtazapine 7.5 mg tablet mirtazapine 7.5 mg tablet No mirtazapin e 7.5 mg tablet [facility] potassium chloride ER 10 mEq tablet,exte nded release(par t/cryst) potassium chloride ER 10 mEq tablet,exte nded release(par t/cryst) No potassium chloride ER 10 mEq tablet,ext ended release(pa rt/cryst) [facility] Trelegy Ellipta 200 mcg-62.5 mcg-25 mcg powder for inhalation Inhale 1 puff every day by inhalation route for 30 days. Trelegy Ellipta 200 mcg-62.5 mcg-25 mcg powder for inhalation Inhale 1 puff every day by inhalation route for 30 days. No Trelegy Ellipta 200 mcg-62.5 mcg-25 mcg powder for inhalation Inhale 1 puff every day by inhalation route for 30 days. [facility] amlodipine 10 mg tablet Take 1 tablet every day by oral route. amlodipine 10 mg tablet Take 1 tablet every day by oral route. No amlodipine 10 mg tablet Take 1 tablet every day by oral route. [facility] aspirin 81 mg tablet,dillan yed release Take 1 tablet every day by oral route. aspirin 81 mg tablet,dillan yed release Take 1 tablet every day by oral route. No 1 Q1D aspirin 81 mg tablet,del ayed release Take 1 tablet every day by oral route. [facility] atorvastati n 40 mg tablet Take 1 tablet every day by oral route. atorvastati n 40 mg tablet Take 1 tablet every day by oral route. No atorvastat in 40 mg tablet Take 1 tablet every day by oral route. [facility] carvedilol 6.25 mg tablet Take 1 tablet twice a day by oral route. carvedilol 6.25 mg tablet Take 1 tablet twice a day by oral route. No carvedilol 6.25 mg tablet Take 1 tablet twice a day by oral route. [facility] clonidine HCl 0.1 mg tablet Take 1 tablet every day by oral route as needed. clonidine HCl 0.1 mg tablet Take 1 tablet every day by oral route as needed. No 1 Q1D clonidine HCl 0.1 mg tablet Take 1 tablet every day by oral route as needed. [facility] diclofenac 1 % topical gel APPLY 2 GRAMS TO THE AFFECTED AREA(S) BY TOPICAL ROUTE 2 TIMES PER DAY (KNEES) diclofenac 1 % topical gel APPLY 2 GRAMS TO THE AFFECTED AREA(S) BY TOPICAL ROUTE 2 TIMES PER DAY (KNEES) No diclofenac 1 % topical gel APPLY 2 GRAMS TO THE AFFECTED AREA(S) BY TOPICAL ROUTE 2 TIMES PER DAY (KNEES) [facility] divalproex 250 mg tablet,dillan yed release divalproex 250 mg tablet,dillan yed release No divalproex 250 mg tablet,del ayed release [facility] Eliquis 5 mg tablet Take 1 tablet twice a day by oral route for 30 days. Eliquis 5 mg tablet Take 1 tablet twice a day by oral route for 30 days. No Eliquis 5 mg tablet Take 1 tablet twice a day by oral route for [address] [facility] ergocalcife rol (vitamin D2) 1,250 mcg (50,000 unit) capsule Take 1 unit every month by oral route for 28 days. ergocalcife rol (vitamin D2) 1,250 mcg (50,000 unit) capsule Take 1 unit every month by oral route for 28 days. No ergocalcif marlee (vitamin D2) 1,250 mcg (50,000 unit) capsule Take 1 unit every month by oral route for 28 days. [facility] ipratropium 0.5 mg-albutero l 3 mg (2.5 mg base)/3 mL nebulizatio n soln Inhale 3 mL 4 times a day by nebulizatio n route as needed. ipratropium 0.5 mg-albutero l 3 mg (2.5 mg base)/3 mL nebulizatio n soln Inhale 3 mL 4 times a day by nebulizatio n route as needed. No 3mL QID ipratropiu m 0.5 mg-albuter ol 3 mg (2.5 mg base)/3 mL nebulizati on soln Inhale 3 mL 4 times a day by nebulizati on route as needed. [facility] lactulose 10 gram/15 mL oral solution lactulose 10 gram/15 mL oral solution No lactulose 10 gram/15 mL oral solution [facility] lidocaine 5 % topical patch lidocaine 5 % topical patch No lidocaine 5 % topical patch [facility] mirtazapine 7.5 mg tablet mirtazapine 7.5 mg tablet No mirtazapin e 7.5 mg tablet [facility] potassium chloride ER 10 mEq tablet,exte nded release(par t/cryst) potassium chloride ER 10 mEq tablet,exte nded release(par t/cryst) No potassium chloride ER 10 mEq tablet,ext ended release(pa rt/cryst) [facility] Trelegy Ellipta 200 mcg-62.5 mcg-25 mcg powder for inhalation Inhale 1 puff every day by inhalation route for 30 days. Trelegy Ellipta 200 mcg-62.5 mcg-25 mcg powder for inhalation Inhale 1 puff every day by inhalation route for 30 days. No Trelegy Ellipta 200 mcg-62.5 mcg-25 mcg powder for inhalation Inhale 1 puff every day by inhalation route for 30 days. [facility] acetaminoph en 300 mg-codeine 30 [...] 1 tablet every day by oral route. [facility] atorvastati n 40 mg tablet Take 1 tablet every day by oral route. atorvastati n 40 mg tablet Take 1 tablet every day by oral route. No 1 Q1D atorvastat in 40 mg tablet Take 1 tablet every day by oral route. [facility] carvedilol 6.25 mg tablet Take 1 tablet twice a day by oral route. carvedilol 6.25 mg tablet Take 1 tablet twice a day by oral route. No 1 BID carvedilol 6.25 mg tablet Take 1 tablet twice a day by oral route. [facility] cephalexin 500 mg tablet Take 1 tablet every 12 hours by oral route. cephalexin 500 mg tablet Take 1 tablet every 12 hours by oral route. No 1 Q12H cephalexin 500 mg tablet Take 1 tablet every [address] hours [address] [facility] ipratropium 0.5 mg-albutero l 2.5 mg/2.5 [...] 6 hours by inhalation route as needed. [facility] Immunizations Ordered Immunization Name Filled Immunization Name Date Status Comments Source pneumococcal polysaccharide PPV23 pneumococcal polysaccharide PPV23 2022-09-24 00:00:00 Completed [facility] influenza, unspecified formulation influenza, unspecified formulation 2022-09-24 00:00:00 Completed [facility] pneumococcal polysaccharide PPV23 pneumococcal polysaccharide PPV23 2022-09-24 00:00:00 Completed [facility] influenza, unspecified formulation influenza, unspecified formulation 2022-09-24 00:00:00 Completed [facility] pneumococcal polysaccharide PPV23 pneumococcal polysaccharide PPV23 2022-09-24 00:00:00 Completed [facility] influenza, unspecified formulation influenza, unspecified formulation 2022-09-24 00:00:00 Completed [facility] pneumococcal polysaccharide PPV23 pneumococcal polysaccharide PPV23 2022-09-24 00:00:00 Completed [facility] influenza, unspecified formulation influenza, unspecified formulation 2022-09-24 00:00:00 Completed [facility] pneumococcal polysaccharide PPV23 pneumococcal polysaccharide PPV23 2022-09-24 00:00:00 Completed [facility] influenza, unspecified formulation influenza, unspecified formulation 2022-09-24 00:00:00 Completed [facility] pneumococcal polysaccharide PPV23 pneumococcal polysaccharide PPV23 2022-09-24 00:00:00 Completed [facility] influenza, unspecified formulation influenza, unspecified formulation 2022-09-24 00:00:00 Completed [facility] pneumococcal polysaccharide PPV23 pneumococcal polysaccharide PPV23 2022-09-24 00:00:00 Completed [facility] influenza, unspecified formulation influenza, unspecified formulation 2022-09-24 00:00:00 Completed [facility] pneumococcal polysaccharide PPV23 pneumococcal polysaccharide PPV23 2022-09-24 00:00:00 Completed [facility] influenza, unspecified formulation influenza, unspecified formulation 2022-09-24 00:00:00 Completed [facility] pneumococcal polysaccharide PPV23 pneumococcal polysaccharide PPV23 2022-09-24 00:00:00 Completed [facility] influenza, unspecified formulation influenza, unspecified formulation 2022-09-24 00:00:00 Completed [facility] pneumococcal polysaccharide PPV23 pneumococcal polysaccharide PPV23 2022-09-24 00:00:00 Completed [facility] influenza, unspecified formulation influenza, unspecified formulation 2022-09-24 00:00:00 Completed [facility] pneumococcal polysaccharide PPV23 pneumococcal polysaccharide PPV23 2022-09-24 00:00:00 Completed [facility] influenza, unspecified formulation influenza, unspecified formulation 2022-09-24 00:00:00 Completed [facility] SARS-COV-2 COVID-19 PFIZER VACCINE 2020-12-29 00:00:00 Completed [facility] SARS-COV-2 COVID-19 PFIZER VACCINE 2020-12-29 00:00:00 Completed [facility] SARS-COV-2 COVID-19 PFIZER VACCINE 2020-12-29 00:00:00 Completed [facility] SARS-COV-2 COVID-19 PFIZER VACCINE 2020-12-29 00:00:00 Completed [facility] SARS-COV-2 COVID-19 PFIZER VACCINE 2020-12-29 00:00:00 Completed [facility] SARS-COV-2 COVID-19 PFIZER VACCINE 2020-12-29 00:00:00 Completed [facility] SARS-COV-2 COVID-19 PFIZER VACCINE 2020-12-29 00:00:00 Completed [facility] SARS-COV-2 COVID-19 PFIZER VACCINE 2020-12-29 00:00:00 Completed [facility] SARS-COV-2 COVID-19 PFIZER VACCINE 2020-12-29 00:00:00 Completed [facility] SARS-COV-2 COVID-19 PFIZER VACCINE 2020-12-29 00:00:00 Completed [facility] SARS-COV-2 COVID-19 PFIZER VACCINE 2020-12-29 00:00:00 Completed [facility] SARS-COV-2 COVID-19 PFIZER VACCINE 2020-12-29 00:00:00 Completed [facility] SARS-COV-2 COVID-19 PFIZER VACCINE 2020-12-29 00:00:00 Completed [facility] SARS-COV-2 COVID-19 PFIZER VACCINE 2020-12-29 00:00:00 Completed [facility] SARS-COV-2 COVID-19 PFIZER VACCINE 2020-12-29 00:00:00 Completed [facility] SARS-COV-2 COVID-19 PFIZER VACCINE 2020-12-29 00:00:00 Completed [facility] SARS-COV-2 COVID-19 PFIZER VACCINE 2020-12-29 00:00:00 Completed [facility] SARS-COV-2 COVID-19 PFIZER VACCINE 2020-12-29 00:00:00 Completed [facility] SARS-COV-2 COVID-19 PFIZER VACCINE 2020-12-29 00:00:00 Completed [facility] SARS-COV-2 COVID-19 PFIZER VACCINE 2020-12-29 00:00:00 Completed [facility] SARS-COV-2 COVID-19 PFIZER VACCINE 2020-12-29 00:00:00 Completed [facility] SARS-COV-2 COVID-19 PFIZER VACCINE 2020-12-29 00:00:00 Completed [facility] SARS-COV-2 COVID-19 PFIZER VACCINE 2020-12-29 00:00:00 Completed [facility] SARS-COV-2 COVID-19 PFIZER VACCINE 2020-12-29 00:00:00 Completed [facility] SARS-COV-2 COVID-19 PFIZER VACCINE 2020-12-29 00:00:00 Completed [facility] SARS-COV-2 COVID-19 PFIZER VACCINE 2020-12-29 00:00:00 Completed [facility] SARS-COV-2 COVID-19 PFIZER VACCINE 2020-12-29 00:00:00 Completed [facility] SARS-COV-2 COVID-19 PFIZER VACCINE 2020-12-29 00:00:00 Completed [facility] SARS-COV-2 COVID-19 PFIZER VACCINE 2020-12-29 00:00:00 Completed [facility] SARS-COV-2 COVID-19 PFIZER VACCINE 2020-12-29 00:00:00 Completed [facility] SARS-COV-2 COVID-19 PFIZER VACCINE 2020-12-29 00:00:00 Completed [facility] SARS-COV-2 COVID-19 PFIZER VACCINE 2020-12-29 00:00:00 Completed [facility] SARS-COV-2 COVID-19 PFIZER VACCINE 2020-12-29 00:00:00 Completed [facility] SARS-COV-2 COVID-19 PFIZER VACCINE 2020-12-29 00:00:00 Completed [facility] SARS-COV-2 COVID-19 PFIZER VACCINE 2020-12-29 00:00:00 Completed [facility] SARS-COV-2 COVID-19 PFIZER VACCINE 2020-12-29 00:00:00 Completed [facility] SARS-COV-2 COVID-19 PFIZER VACCINE 2020-12-29 00:00:00 Completed [facility] SARS-COV-2 COVID-19 PFIZER VACCINE 2020-12-29 00:00:00 Completed [facility] SARS-COV-2 COVID-19 PFIZER VACCINE 2020-12-29 00:00:00 Completed [facility] SARS-COV-2 COVID-19 PFIZER VACCINE 2020-12-29 00:00:00 Completed [facility] SARS-COV-2 COVID-19 PFIZER VACCINE 2020-12-29 00:00:00 Completed [facility] SARS-COV-2 COVID-19 PFIZER VACCINE 2020-12-29 00:00:00 Completed [facility] SARS-COV-2 COVID-19 PFIZER VACCINE 2020-12-29 00:00:00 Completed [facility] SARS-COV-2 COVID-19 PFIZER VACCINE 2020-12-29 00:00:00 Completed [facility] SARS-COV-2 COVID-19 PFIZER VACCINE 2020-12-29 00:00:00 Completed [facility] SARS-COV-2 COVID-19 PFIZER VACCINE 2020-12-07 00:00:00 Completed [facility] SARS-COV-2 COVID-19 PFIZER VACCINE 2020-12-07 00:00:00 Completed [facility] SARS-COV-2 COVID-19 PFIZER VACCINE 2020-12-07 00:00:00 Completed [facility] SARS-COV-2 COVID-19 PFIZER VACCINE 2020-12-07 00:00:00 Completed [facility] SARS-COV-2 COVID-19 PFIZER VACCINE 2020-12-07 00:00:00 Completed [facility] SARS-COV-2 COVID-19 PFIZER VACCINE 2020-12-07 00:00:00 Completed [facility] SARS-COV-2 COVID-19 PFIZER VACCINE 2020-12-07 00:00:00 Completed [facility] SARS-COV-2 COVID-19 PFIZER VACCINE 2020-12-07 00:00:00 Completed [facility] SARS-COV-2 COVID-19 PFIZER VACCINE 2020-12-07 00:00:00 Completed [facility] SARS-COV-2 COVID-19 PFIZER VACCINE 2020-12-07 00:00:00 Completed [facility] SARS-COV-2 COVID-19 PFIZER VACCINE 2020-12-07 00:00:00 Completed [facility] SARS-COV-2 COVID-19 PFIZER VACCINE 2020-12-07 00:00:00 Completed [facility] SARS-COV-2 COVID-19 PFIZER VACCINE 2020-12-07 00:00:00 Completed [facility] SARS-COV-2 COVID-19 PFIZER VACCINE 2020-12-07 00:00:00 Completed [facility] SARS-COV-2 COVID-19 PFIZER VACCINE 2020-12-07 00:00:00 Completed [facility] SARS-COV-2 COVID-19 PFIZER VACCINE 2020-12-07 00:00:00 Completed [facility] SARS-COV-2 COVID-19 PFIZER VACCINE 2020-12-07 00:00:00 Completed [facility] SARS-COV-2 COVID-19 PFIZER VACCINE 2020-12-07 00:00:00 Completed [facility] SARS-COV-2 COVID-19 PFIZER VACCINE 2020-12-07 00:00:00 Completed [facility] SARS-COV-2 COVID-19 PFIZER VACCINE 2020-12-07 00:00:00 Completed [facility] SARS-COV-2 COVID-19 PFIZER VACCINE 2020-12-07 00:00:00 Completed [facility] SARS-COV-2 COVID-19 PFIZER VACCINE 2020-12-07 00:00:00 Completed [facility] SARS-COV-2 COVID-19 PFIZER VACCINE 2020-12-07 00:00:00 Completed [facility] SARS-COV-2 COVID-19 PFIZER VACCINE 2020-12-07 00:00:00 Completed [facility] SARS-COV-2 COVID-19 PFIZER VACCINE 2020-12-07 00:00:00 Completed [facility] SARS-COV-2 COVID-19 PFIZER VACCINE 2020-12-07 00:00:00 Completed [facility] SARS-COV-2 COVID-19 PFIZER VACCINE 2020-12-07 00:00:00 Completed [facility] SARS-COV-2 COVID-19 PFIZER VACCINE 2020-12-07 00:00:00 Completed [facility] SARS-COV-2 COVID-19 PFIZER VACCINE 2020-12-07 00:00:00 Completed [facility] SARS-COV-2 COVID-19 PFIZER VACCINE 2020-12-07 00:00:00 Completed [facility] SARS-COV-2 COVID-19 PFIZER VACCINE 2020-12-07 00:00:00 Completed [facility] SARS-COV-2 COVID-19 PFIZER VACCINE 2020-12-07 00:00:00 Completed [facility] SARS-COV-2 COVID-19 PFIZER VACCINE 2020-12-07 00:00:00 Completed [facility] SARS-COV-2 COVID-19 PFIZER VACCINE 2020-12-07 00:00:00 Completed [facility] SARS-COV-2 COVID-19 PFIZER VACCINE 2020-12-07 00:00:00 Completed [facility] SARS-COV-2 COVID-19 PFIZER VACCINE 2020-12-07 00:00:00 Completed [facility] SARS-COV-2 COVID-19 PFIZER VACCINE 2020-12-07 00:00:00 Completed [facility] SARS-COV-2 COVID-19 PFIZER VACCINE 2020-12-07 00:00:00 Completed [facility] SARS-COV-2 COVID-19 PFIZER VACCINE 2020-12-07 00:00:00 Completed [facility] SARS-COV-2 COVID-19 PFIZER VACCINE 2020-12-07 00:00:00 Completed [facility] SARS-COV-2 COVID-19 PFIZER VACCINE 2020-12-07 00:00:00 Completed [facility] SARS-COV-2 COVID-19 PFIZER VACCINE 2020-12-07 00:00:00 Completed [facility] SARS-COV-2 COVID-19 PFIZER VACCINE 2020-12-07 00:00:00 Completed [facility] SARS-COV-2 COVID-19 PFIZER VACCINE 2020-12-07 00:00:00 Completed [facility] SARS-COV-2 COVID-19 PFIZER VACCINE 2020-12-07 00:00:00 Completed [facility] influenza nasal, unspecified formulation influenza nasal, unspecified formulation Unknown Completed [facility] Tdap Tdap Unknown Completed [facility] ical pneumococcal polysaccharide PPV23 pneumococcal polysaccharide PPV23 Unknown Completed [facility] influenza, unspecified formulation influenza, unspecified formulation Unknown Completed [facility] COVID-19, mRNA, LNP-S, PF, 30 mcg/0.3 mL dose ([facility] COVID-19, mRNA, LNP-S, PF, 30 mcg/0.3 mL dose (Pfizer-BioNTech) Unknown Completed [facility] COVID-19, mRNA, LNP-S, PF, 30 mcg/0.3 mL dose (Pfizer-BioNTech) COVID-19, mRNA, LNP-S, PF, 30 mcg/0.3 mL dose (Pfizer-BioNTech) Unknown Completed [facility] influenza nasal, unspecified formulation influenza nasal, unspecified formulation Unknown Completed [facility] Tdap Tdap Unknown Completed [facility] ical pneumococcal polysaccharide PPV23 pneumococcal polysaccharide PPV23 Unknown Completed [facility] influenza, unspecified formulation influenza, unspecified formulation Unknown Completed [facility] COVID-19, mRNA, LNP-S, PF, 30 mcg/0.3 mL dose (Pfizer-BioNTech) COVID-19, mRNA, LNP-S, PF, 30 mcg/0.3 mL dose (Pfizer-BioNTech) Unknown Completed [facility] COVID-19, mRNA, LNP-S, PF, 30 mcg/0.3 mL dose (Pfizer-BioNTech) COVID-19, mRNA, LNP-S, PF, 30 mcg/0.3 mL dose (Pfizer-BioNTech) Unknown Completed [facility] influenza nasal, unspecified formulation influenza nasal, unspecified formulation Unknown Completed [facility] Tdap Tdap Unknown Completed [facility] ical pneumococcal polysaccharide PPV23 pneumococcal polysaccharide PPV23 Unknown Completed [facility] influenza, unspecified formulation influenza, unspecified formulation Unknown Completed [facility] COVID-19, mRNA, LNP-S, PF, 30 mcg/0.3 mL dose (Pfizer-BioNTech) COVID-19, mRNA, LNP-S, PF, 30 mcg/0.3 mL dose (Pfizer-BioNTech) Unknown Completed [facility] COVID-19, mRNA, LNP-S, PF, 30 mcg/0.3 mL dose (Pfizer-BioNTech) COVID-19, mRNA, LNP-S, PF, 30 mcg/0.3 mL dose (Pfizer-BioNTech) Unknown Completed [facility] SARS-COV-2 COVID-19 PFIZER VACCINE Unknown Completed [facility] SARS-COV-2 COVID-19 PFIZER VACCINE Unknown Completed [facility] SARS-COV-2 COVID-19 PFIZER VACCINE Unknown Completed [facility] SARS-COV-2 COVID-19 PFIZER VACCINE Unknown Completed [facility] SARS-COV-2 COVID-19 PFIZER VACCINE Unknown Completed [facility] SARS-COV-2 COVID-19 PFIZER VACCINE Unknown Completed [facility] SARS-COV-2 COVID-19 PFIZER VACCINE Unknown Completed [facility] SARS-COV-2 COVID-19 PFIZER VACCINE Unknown Completed [facility] Vital Signs Vital Name Observation Time Observation Value Comments S ource BP Systolic 2023-12-08 00:00:00 130 mm[Hg] [facility] BMI (Body Mass Index) 2023-12-08 00:00:00 22.6 kg/m2 [facility] BP Diastolic 2023-12-08 00:00:00 73 mm[Hg] [facility] Body Weight 2023-12-08 00:00:00 2450 [oz_av] [facility] Height 2023-12-08 00:00:00 69 [in_i] [facility] BP Diastolic 2023-12-03 00:00:00 71 mm[Hg] [facility] Height 2023-12-03 00:00:00 69 [in_i] [facility] BP Systolic 2023-12-03 00:00:00 137 mm[Hg] [facility] Body Weight 2023-12-03 00:00:00 2450 [oz_av] [facility] BMI (Body Mass Index) 2023-12-03 00:00:00 22.6 kg/m2 [facility] BMI (Body Mass Index) 2023-11-23 00:00:00 22.5 kg/m2 [facility] Body Weight 2023-11-23 00:00:00 2436 [oz_av] [facility] BP Systolic 2023-11-23 00:00:00 130 mm[Hg] [facility] Height 2023-11-23 00:00:00 69 [in_i] [facility] BP Diastolic 2023-11-23 00:00:00 86 mm[Hg] [facility] Systolic blood pressure 2023-08-19 17:11:00 102 mm[Hg] [facility] Diastolic blood pressure 2023-08-19 17:11:00 73 mm[Hg] [facility] Heart rate 2023-08-19 17:11:00 80 /min [facility] Respiratory rate 2023-08-19 17:11:00 16 /min [facility] Body weight 2023-08-19 17:11:00 79.379 kg [facility] BMI 2023-08-19 17:11:00 25.84 kg/m2 [facility] Oxygen saturation in Arterial blood by Pulse oximetry 2023-08-19 17:11:00 94 /min [facility] Systolic blood pressure 2023-06-22 14:55:00 154 mm[Hg] [facility] Diastolic blood pressure 2023-06-22 14:55:00 78 mm[Hg] [facility] Heart rate 2023-06-22 14:55:00 82 /min [facility] Body temperature 2023-06-22 14:50:00 36.28 Genevieve [facility] Respiratory rate 2023-06-22 14:50:00 18 /min [facility] Body weight 2023-06-22 14:50:00 79.425 kg [facility] BMI 2023-06-22 14:50:00 25.86 kg/m2 [facility] Oxygen saturation in Arterial blood by Pulse oximetry 2023-06-22 14:50:00 95 /min [facility] Systolic blood pressure 2023-05-08 21:34:00 130 mm[Hg] [facility] Diastolic blood pressure 2023-05-08 21:34:00 90 mm[Hg] [facility] Heart rate 2023-05-08 21:34:00 62 /min [facility] Body temperature 2023-05-08 21:34:00 36.11 Genevieve [facility] Respiratory rate 2023-05-08 21:34:00 28 /min [facility] Body height 2023-05-08 21:34:00 175.3 cm [facility] Body weight 2023-05-08 21:34:00 81.647 kg [facility] BMI 2023-05-08 21:34:00 26.58 kg/m2 [facility] Oxygen saturation in Arterial blood by Pulse oximetry 2023-05-08 21:34:00 98 /min [facility] BP Diastolic 2023-02-05 00:00:00 61 mm[Hg] [facility] Height 2023-02-05 00:00:00 69 [in_i] [facility] BMI (Body Mass Index) 2023-02-05 00:00:00 25.3 kg/m2 [facility] BP Systolic 2023-02-05 00:00:00 113 mm[Hg] [facility] Body Weight 2023-02-05 00:00:00 2736 [oz_av] [facility] BP Diastolic 2023-02-02 00:00:00 88 mm[Hg] [facility] Height 2023-02-02 00:00:00 69 [in_i] [facility] BMI (Body Mass Index) 2023-02-02 00:00:00 26.4 kg/m2 [facility] BP Systolic 2023-02-02 00:00:00 136 mm[Hg] [facility] Body Weight 2023-02-02 00:00:00 2856 [oz_av] [facility] BP Diastolic 2023-01-27 00:00:00 79 mm[Hg] [facility] Height 2023-01-27 00:00:00 69 [in_i] [facility] BMI (Body Mass Index) 2023-01-27 00:00:00 26.3 kg/m2 [facility] BP Systolic 2023-01-27 00:00:00 130 mm[Hg] [facility] Body Weight 2023-01-27 00:00:00 2853 [oz_av] [facility] Systolic blood pressure 2023-01-18 16:37:00 158 mm[Hg] [facility] Diastolic blood pressure 2023-01-18 16:37:00 92 mm[Hg] [facility] Heart rate 2023-01-18 16:37:00 90 /min [facility] Systolic blood pressure 2023-01-18 15:47:00 155 mm[Hg] [facility] Diastolic blood pressure 2023-01-18 15:47:00 109 mm[Hg] [facility] Heart rate 2023-01-18 15:45:00 103 /min [facility] Body height 2023-01-18 15:45:00 175.3 cm [facility] Body weight 2023-01-18 15:45:00 78.835 kg [facility] BMI 2023-01-18 15:45:00 25.67 kg/m2 [facility] BP Diastolic 2022-12-29 00:00:00 75 mm[Hg] [facility] Height 2022-12-29 00:00:00 69 [in_i] [facility] BMI (Body Mass Index) 2022-12-29 00:00:00 26.3 kg/m2 [facility] BP Systolic 2022-12-29 00:00:00 138 mm[Hg] [facility] Body Weight 2022-12-29 00:00:00 2853 [oz_av] [facility] BP Diastolic 2022-12-15 00:00:00 78 mm[Hg] [facility] Height 2022-12-15 00:00:00 69 [in_i] [facility] BMI (Body Mass Index) 2022-12-15 00:00:00 25.7 kg/m2 [facility] BP Systolic 2022-12-15 00:00:00 138 mm[Hg] [facility] Body Weight 2022-12-15 00:00:00 2784 [oz_av] [facility] BP Diastolic 2022-11-24 00:00:00 81 mm[Hg] [facility] Height 2022-11-24 00:00:00 69 [in_i] [facility] BMI (Body Mass Index) 2022-11-24 00:00:00 25.7 kg/m2 [facility] BP Systolic 2022-11-24 00:00:00 139 mm[Hg] [facility] Body Weight 2022-11-24 00:00:00 2784 [oz_av] [facility] BP Diastolic 2022-10-16 00:00:00 88 mm[Hg] [facility] Height 2022-10-16 00:00:00 69 [in_i] [facility] BMI (Body Mass Index) 2022-10-16 00:00:00 25.8 kg/m2 [facility] BP Systolic 2022-10-16 00:00:00 134 mm[Hg] [facility] Body Weight 2022-10-16 00:00:00 2792 [oz_av] [facility] BP Diastolic 2022-10-09 00:00:00 77 mm[Hg] [facility] Height 2022-10-09 00:00:00 69 [in_i] [facility] BMI (Body Mass Index) 2022-10-09 00:00:00 25.5 kg/m2 [facility] BP Systolic 2022-10-09 00:00:00 138 mm[Hg] [facility] Body Weight 2022-10-09 00:00:00 2758 [oz_av] [facility] BP Diastolic 2022-09-29 00:00:00 82 mm[Hg] [facility] Height 2022-09-29 00:00:00 69 [in_i] [facility] BMI (Body Mass Index) 2022-09-29 00:00:00 24.8 kg/m2 [facility] BP Systolic 2022-09-29 00:00:00 142 mm[Hg] [facility] Body Weight 2022-09-29 00:00:00 2688 [oz_av] [facility] Systolic blood pressure 2022-09-25 21:32:00 150 mm[Hg] [facility] Diastolic blood pressure 2022-09-25 21:32:00 92 mm[Hg] [facility] Body height 2022-09-25 15:49:00 175.3 cm [facility] Body Weight 2022-09-22 00:00:00 2688 [oz_av] [facility] BP Diastolic 2022-09-22 00:00:00 77 mm[Hg] [facility] Height 2022-09-22 00:00:00 69 [in_i] [facility] BMI (Body Mass Index) 2022-09-22 00:00:00 24.8 kg/m2 [facility] BP Systolic 2022-09-22 00:00:00 138 mm[Hg] [facility] BP Diastolic 2022-09-15 00:00:00 77 mm[Hg] [facility] BP Systolic 2022-09-15 00:00:00 138 mm[Hg] [facility] Body Weight 2022-09-15 00:00:00 2672 [oz_av] [facility] Systolic blood pressure 2022-09-10 18:52:00 132 mm[Hg] [facility] Diastolic blood pressure 2022-09-10 18:52:00 77 mm[Hg] [facility] Heart rate 2022-09-10 18:46:00 75 /min [facility] Respiratory rate 2022-09-10 18:46:00 20 /min [facility] Body height 2022-09-10 18:46:00 175.3 cm [facility] Body weight 2022-09-10 18:46:00 78.835 kg [facility] BMI 2022-09-10 18:46:00 25.67 kg/m2 [facility] Oxygen saturation in Arterial blood by Pulse oximetry 2022-09-10 18:46:00 97 /min [facility] BP Diastolic 2022-09-08 00:00:00 79 mm[Hg] [facility] Height 2022-09-08 00:00:00 69 [in_i] [facility] BMI (Body Mass Index) 2022-09-08 00:00:00 24.7 kg/m2 [facility] BP Systolic 2022-09-08 00:00:00 136 mm[Hg] [facility] Body Weight 2022-09-08 00:00:00 2672 [oz_av] [facility] Systolic blood pressure 2022-08-21 14:30:00 162 mm[Hg] [facility] Diastolic blood pressure 2022-08-21 14:30:00 106 mm[Hg] [facility] Heart rate 2022-08-21 14:30:00 65 /min [facility] Body weight 2022-08-21 14:17:00 74.844 kg [facility] BMI 2022-08-21 14:17:00 21.77 kg/m2 [facility] Systolic blood pressure 2022-05-02 20:58:00 170 mm[Hg] [facility] Diastolic blood pressure 2022-05-02 20:58:00 89 mm[Hg] [facility] Heart rate 2022-05-02 20:58:00 80 /min [facility] Respiratory rate 2022-05-02 20:58:00 16 /min [facility] Oxygen saturation in Arterial blood by Pulse oximetry 2022-05-02 20:58:00 98 /min [facility] Body temperature 2022-05-02 16:41:00 36.67 Genevieve [facility] Body weight 2022-05-02 16:41:00 63.957 kg [facility] BMI 2022-05-02 16:41:00 18.61 kg/m2 [facility] Systolic blood pressure 2022-05-01 13:04:00 163 mm[Hg] [facility] Diastolic blood pressure 2022-05-01 13:04:00 91 mm[Hg] [facility] Heart rate 2022-05-01 13:04:00 68 /min [facility] Body temperature 2022-05-01 13:04:00 36.72 Genevieve [facility] Respiratory rate 2022-05-01 13:04:00 18 /min [facility] Oxygen saturation in Arterial blood by Pulse oximetry 2022-05-01 13:04:00 98 /min [facility] Body height 2022-04-30 12:32:00 185.4 cm [facility] Body weight 2022-04-30 12:32:00 64 kg [facility] BMI 2022-04-30 12:32:00 18.62 kg/m2 [facility] Systolic blood pressure 2022-04-29 02:45:00 154 mm[Hg] [facility] Diastolic blood pressure 2022-04-29 02:45:00 125 mm[Hg] [facility] Heart rate 2022-04-29 02:45:00 69 /min [facility] Respiratory rate 2022-04-29 02:45:00 20 /min [facility] Oxygen saturation in Arterial blood by Pulse oximetry 2022-04-29 02:45:00 99 /min [facility] Body temperature 2022-04-28 23:07:00 36.61 Genevieve [facility] Body weight 2022-04-28 23:07:00 63.504 kg [facility] BMI 2022-04-28 23:07:00 18.47 kg/m2 [facility] Procedures Procedure Date / Time Performed Performing Clinician Source EXTERNAL PROVIDER - [facility] CARDIOLOGY 2023-06-22 05:01:00 Doctor Unassigned, [place] [facility] EKG-12 LEAD 2023-05-08 21:46:25 [facility] 2022-09-10 06:01:00 Doctor Unassigned, [place] [facility] CT HEAD WO CONTRAST 2022-09-04 18:24:15 Jaqui Ervin [facility] ASSIGNMENT OF BENEFITS 2022-09-04 18:09:30 Docto r Unassigned, [place] [facility] ASSIGNMENT OF BENEFITS 2022-08-21 13:37:31 Docto r Unassigned, [place] [facility] REFERRAL- REQUEST/RESPONSE 2022-07-21 05:01:00 Doctor Unassigned, [place] [facility] REFERRAL- REQUEST/RESPONSE 2022-06-27 05:01:00 Doctor Unassigned, [place] [facility] EKG-12 LEAD 2022-05-02 20:34:45 Alicia Talley [facility] URINALYSIS 2022-05-02 17:42:00 Alicia Talley [facility] LACTIC ACID WHOLE BLOOD 2022-05-02 17:34:00 Kathy Talley [facility] TROPONIN I 2022-05-02 17:33:00 Alicia Talley [facility] COMP. METABOLIC PANEL ([id number]) 2022-05-02 17:33:00 Alicia Talley [facility] ETHANOL 2022-05-02 17:33:00 Alicia Talley [facility] CBC WITH DIFF 2022-05-02 17:33:00 Alicia Talley [facility] CONSENT/REFUSAL FOR DIAGNOSIS AND TREATMENT 2022-05-02 16:41:24 Doctor Unassigned, [place] [facility] PHOSPHORUS 2022-05-01 05:14:00 [place] [facility] MAGNESIUM 2022-05-01 05:14:00 [place] [facility] BASIC METABOLIC PANEL (NA, K, CL, CO2, GLUCOSE, BUN, CREATININE, CA) 2022-05-01 05:14:00 [place] [facility] TRANSTHORACIC ECHO (TTE) COMPLETE 2022-04-30 19:17:00 Jose [address] Plaza [facility] MAGNESIUM 2022-04-30 15:45:00 [facility] (NA, K, CL, CO2, GLUCOSE, BUN, CREATININE, CA) 2022-04-30 15:45:00 Jose Roberto Plaza [facility] CT CERVICAL SPINE WO CONTRAST 2022-04-30 15:08:06 [place] [facility] CT HEAD WO CONTRAST 2022-04-30 15:08:06 [place], [place] [facility] OSMOLALITY URINE 2022-04-30 11:27:[address] [facility] URINE DRUG (IMMUNOASSAY) - COMPREHENSIVE DRUG SCREEN 2022-04-30 11:27:00 [place] [facility] URINALYSIS 2022-04-30 11:27:00 Jose Roberto Plaza [facility] CREATININE, URINE RANDOM 2022-04-30 11:27:[address] [facility] SODIUM, URINE RANDOM 2022-04-30 11:27:[address] [facility] ACTIVATED PARTIAL THRMPLAS DANNY 2022-04-30 11:26:00 Jose Roberto Plaza [facility] PROTHROMBIN TIME / INR 2022-04-30 05:27:[address] [facility] ACTIVATED PARTIAL THRMPLAS DANNY 2022-04-30 05:27:00 [place] acute hospital CREATINE KINASE 2022-04-29 23:20:00 Jose Roberto Plaza [facility] MAGNESIUM 2022-04-29 23:20:00 [facility] OSMOLALITY, SERUM OR PLASMA 2022-04-29 23:20:00 [facility] TROPONIN I 2022-04-29 23:20:00 Wale [facility] THYROID STIMULATING HORMONE 2022-04-29 23:20:00 [place] COMP. METABOLIC PANEL ([id number]) 2022-04-29 23:20:00 [facility]IP[facility] ([id number])(TOTAL CHOLESTEROL, TRIGLYCERIDES, HDL) 2022-04-29 23:20:00 [facility] CBC WITH DIFF 2022-04-29 23:20:00 [facility] GLYCOSYLATED HEMOGLOBIN (A1C) 2022-04-29 23:20:00 [place] N-TERMINAL PRO-BNP 2022-04-29 23:20:[address] [facility] FREE T3 2022-04-29 23:20:00 [facility] COVID-19 (ID NOW RAPID TESTING) 2022-04-29 23:20:00 Wale [facility] LAB ONLY COVID INTERPRETATION 2022-04-29 23:20:00 Bubba Echevarria [facility] XR CHEST 1 VW 2022-04-29 22:57:00 Bubba Echevarria [facility] HB ECG ROUTINE & RHYTHM STRIP 2022-04-29 21:53:14 Osmin Echevarrianydeyanira [facility] XR CHEST 2 VW 2022-04-29 00:46:00 Bernardo Rodríguez [facility] EKG-12 LEAD 2022-04-29 00:23:05 Bernardo Rodríguez [facility] LIPASE 2022-04-29 00:08:00 Bernardo Rod[facility]guez [place] [facility] TROPONIN I 2022-04-29 00:08:00 Bernadro Rodríguez [facility] HEPATIC FUNCTION PANEL (03041) (ALB,T.PRO,BILI T,BU/BC,ALT,AST,ALK PHOS) 2022-04-29 00:08:00 Bernardo Rodríguez [facility] BASIC METABOLIC PANEL (NA, K, CL, CO2, GLUCOSE, BUN, CREATININE, CA) 2022-04-29 00:08:00 Bernardo Rodríguez [facility] CBC WITH DIFF 2022-04-29 00:08:00 Bernardo Rodríguez [facility] N-TERMINAL PRO-BNP 2022-04-29 00:08:00 Bernardo Rodríguez [facility] COVID-19 (ID NOW RAPID TESTING) 2022-04-29 00:08:00 Bernardo Rodríguez [facility] Plan of Care Planned Activity Planned Date Details Comments Source [facility] En[facility] Start Date/Time End Date/Time Encounter Type Admission Type Attending [facility] Facility Care Department Encounter ID Source 2024-01-04 00:00:00 2024-01-04 00:00:00 Outpatient GC[facility]BAHC[facility]Tod d_J [facility] [id number] [facility] 2023-12-30 00:00:00 2023-12-30 00:00:00 Outpatient GC_BAHC_Tod d_J [facility] [id number] [facility] 2023-12-21 00:00:00 2023-12-21 00:00:00 LANDON Sullivan: [address] [place] [phone] , Ph. Formerly [facility] - GC_BAHC_Lak e [facility] [id number] [facility] 2023-12-20 00:00:00 2023-12-20 00:00:00 Outpatient GC_BAHC_Tod d_J PRIV PRIV [id number] [facility] 2023-12-17 00:00:00 2023-12-17 00:00:00 Outpatient GC[facility]BAHC_Tod d_J [facility] PRIV [id number] [facility] 2023-12-14 00:00:00 2023-12-14 00:00:00 LANDON Sullivan: [address] [place] [phone] , Ph. Formerly [facility] - GC_BAHC_Lak [facility] [id number] [facility] 2023-12-09 00:00:00 2023-12-09 00:00:00 Outpatient GC_BAHC_Tod d_J [facility] [id number] [facility] 2023-12-08 00:00:00 2023-12-08 00:00:00 Randi Parsons PA: [address] [place] [phone] , Ph. [facility] GC_BAHC_Lak [facility] [id number] [facility] 2023-12-06 00:00:00 2023-12-06 00:00:00 Outpatient GC_BAHC_Tod d_J [facility] [id number] [facility] 2023-12-03 00:00:00 2023-12-03 00:00:00 LANDON Sullivan: [address] [place] [phone] , Ph. [facility]ly [facility] - GC_BAHC_Lak [facility] [id number] [facility] 2023-11-29 00:00:00 2023-11-29 00:00:00 Outpatient GC_BAHC_Tod d_J [facility] [id number] [facility] 2023-11-23 00:00:00 2023-11-23 00:00:00 Outpatient GC_BAHC_Tod d_J [facility] [id number] [facility] 2023-11-23 00:00:00 2023-11-23 00:00:00 Randi Parsons PA: [address] [place] [phone] , Ph. [facility] - GC_BAHC_Lak [facility] [id number] [facility] 2023-11-19 00:00:00 2023-11-19 00:00:00 Outpatient GC_BAHC_Tod d_J PRIV PRIV [id number] [facility] 2023-11-19 00:00:00 2023-11-19 00:00:00 Randi Parsons PA: [address] [place] [phone] , Ph. [facility] GC_BAHC_Lak [facility] [id number] [facility] 2023-11-18 00:00:00 2023-11-18 00:00:00 Outpatient GC_BAHC_Tod d_J PRIV PRIV [id number] [facility] 2023-11-17 00:00:00 2023-11-17 00:00:00 Outpatient GC_BAHC_Tod d_J PRIV PRIV [id number] [facility] 2023-11-16 00:00:00 2023-11-16 00:00:00 Randi Parsons PA: [address] [place] [phone] , Ph. [facility] GC_BAHC_Lak [facility] [id number] [facility] 2023-11-15 00:00:00 2023-11-15 00:00:00 Outpatient GC_BAHC_Tod d_J PRIV PRIV [id number] [facility] 2023-11-13 00:00:00 2023-11-13 00:00:00 Outpatient GC_BAHC_Tod d_J PRIV PRIV [id number] [facility] 2023-11-12 00:00:00 2023-11-12 00:00:00 LANDON Sullivan: [address] [place] [phone] , Ph. [facility] GC_BAHC_Lak [facility] [id number] [facility] 2023-11-09 00:00:00 2023-11-09 00:00:00 LANDON Sullivan: [address] [place] [phone] , Ph. [facility] - GC_BAHC_Lak [facility] [id number] [facility] 2023-10-29 00:00:00 2023-10-29 00:00:00 Outpatient GC_BAHC_Tod d_J PRIV PRIV [id number] [facility] 2023-10-21 00:00:00 2023-10-21 00:00:00 Outpatient GC_BAHC_Tod d_J PRIV PRIV [id number] [facility] 2023-10-15 00:00:00 2023-10-15 00:00:00 Outpatient GC_BAHC_Tod d_J PRIV PRIV [id number] [facility] 2023-10-07 00:00:00 2023-10-07 00:00:00 Outpatient GC_BAHC_Tod d_J PRIV PRIV [id number] [facility] 2023-09-29 00:00:00 2023-09-29 00:00:00 Outpatient GC_BAHC_Tod d_J PRIV PRIV [id number] [facility] 2023-09-29 00:00:00 2023-09-29 00:00:00 Outpatient GC_BAHC_Tod d_J PRIV PRIV [id number] [facility] 2023-09-24 00:00:00 2023-09-24 00:00:00 Outpatient GC_BAHC_Tod d_J PRIV PRIV [id number] [facility] 2023-09-10 00:00:00 2023-09-10 00:00:00 Outpatient GC_BAHC_Tod d_J PRIV PRIV [id number] [facility] 2023-09-10 00:00:00 2023-09-10 00:00:00 Outpatient GC_BAHC_Tod d_J PRIV PRIV [id number] [facility] 2023-09-07 00:00:00 2023-09-07 00:00:00 Outpatient GC_BAHC_Tod d_J PRIV PRIV [id number] [facility] 2023-09-02 08:30:00 2023-09-02 08:30:00 Outpatient KYLEE MCGINNIS CHOCKALINGA M [facility] [id number] [facility] 2023-09-01 00:00:00 2023-09-01 00:00:00 Outpatient GC_BAHC_Tod d_J PRIV PRIV [id number] [facility] 2023-08-30 00:00:00 2023-08-30 00:00:00 Outpatient GC_BAHC_Tod d_J PRIV PRIV [id number] [facility] 2023-08-27 00:00:00 2023-08-27 00:00:00 Outpatient GC_BAHC_Tod d_J PRIV PRIV [id number] [facility] 2023-08-26 00:00:00 2023-08-26 00:00:00 Outpatient GC_BAHC_Tod d_J PRIV PRIV [id number] [facility] 2023-08-19 11:40:00 2023-08-19 12:26:17 Outpatient KYLEE MCGINNIS CHOCKALINGA M [facility] [id number] [facility] 2023-08-19 11:40:00 2023-08-19 12:26:17 Office Visit Kylee Radford [facility] [id number] [id number] [id number] [facility] 2023-08-18 00:00:00 2023-08-18 00:00:00 Outpatient GC_BAHC_Tod d_J PRIV PRIV [id number] [facility] 2023-08-17 00:00:00 2023-08-17 00:00:00 Outpatient GC_BAHC_Tod d_J PRIV PRIV [id number] [facility] 2023-08-17 00:00:00 2023-08-17 00:00:00 Outpatient GC_BAHC_Tod d_J PRIV PRIV [id number] [facility] 2023-08-13 00:00:00 2023-08-13 00:00:00 Outpatient GC_BAHC_Tod d_J PRIV PRIV [id number] [facility] 2023-08-12 00:00:00 2023-08-12 00:00:00 Outpatient GC_BAHC_Tod d_J PRIV PRIV [id number] [facility] 2023-08-11 00:00:00 2023-08-11 00:00:00 Outpatient GC_BAHC_Tod d_J PRIV PRIV [id number] [facility] 2023-08-11 00:00:00 2023-08-11 00:00:00 Outpatient GC_BAHC_Tod d_J PRIV PRIV [id number] [facility] 2023-08-05 14:00:00 2023-08-05 14:00:00 Outpatient KYLEE MCGINNIS CHOCKALINGA M [facility] [id number] [facility] 2023-08-04 00:00:00 2023-08-04 00:00:00 Outpatient GC_BAHC_Tod d_J PRIV PRIV [id number] [facility] 2023-07-28 00:00:00 2023-07-28 00:00:00 Outpatient GC_BAHC_Tod d_J PRIV PRIV [id number] [facility] 2023-07-28 00:00:00 2023-07-28 00:00:00 Outpatient GC_BAHC_Tod d_J PRIV PRIV [id number] [facility] 2023-07-26 00:00:00 2023-07-26 00:00:00 Outpatient GC_BAHC_Tod d_J PRIV PRIV [id number] [facility] 2023-07-12 00:00:00 2023-07-12 00:00:00 Telephone Naa Lamb [facility] [id number] 350.1.13.10 4.2.7.2.686 [id number] [facility] 2023-07-02 00:00:00 2023-07-02 00:00:00 Outpatient GC_BAHC_Tod d_J PRIV PRIV [id number] [facility] 2023-07-02 00:00:00 2023-07-02 00:00:00 Outpatient GC_BAHC_Tod d_J PRIV PRIV [id number] [facility] 2023-07-02 00:00:00 2023-07-02 00:00:00 Outpatient GC_BAHC_Tod d_J PRIV PRIV [id number] [facility] 2023-07-01 00:00:00 2023-07-01 00:00:00 Outpatient GC_BAHC_Tod d_J PRIV PRIV [id number] [facility] 2023-06-30 00:00:00 2023-06-30 00:00:00 Outpatient GC_BAHC_Tod d_J PRIV PRIV [id number] [facility] 2023-06-23 00:00:00 2023-06-23 00:00:00 Outpatient GC_BAHC_Tod d_J PRIV PRIV [id number] [facility] 2023-06-22 09:30:00 2023-06-22 11:17:47 Outpatient R NAA LAMB [facility] [id number] [facility] 2023-06-22 09:30:00 2023-06-22 11:17:47 Office Visit Naa Lamb [facility] .840.114 350.1.13.10 4.2.7.2.686 [id number] [facility] 2023-06-22 00:00:00 2023-06-22 00:00:00 Orders Only Doctor Unassigned, [place] [address] 350.1.13.10 4.2.7.2.686 [id number] [facility] 2023-06-18 00:00:00 2023-06-18 00:00:00 Outpatient GC_BAHC_Tod d_J PRIV PRIV [id number] [facility] 2023-06-14 00:00:00 2023-06-14 00:00:00 Outpatient GC_BAHC_Tod d_J PRIV PRIV [id number] [facility] 2023-06-11 00:00:00 2023-06-11 00:00:00 Outpatient GC_BAHC_Tod d_J PRIV PRIV [id number] [facility] 2023-06-11 00:00:00 2023-06-11 00:00:00 Outpatient GC_BAHC_Tod d_J PRIV PRIV [id number] [facility] 2023-06-04 00:00:00 2023-06-04 00:00:00 Outpatient GC_BAHC_Tod d_J PRIV PRIV [id number] [facility] 2023-06-04 00:00:00 2023-06-04 00:00:00 Outpatient GC_BAHC_Tod d_J PRIV PRIV [id number] [facility] 2023-06-04 00:00:00 2023-06-04 00:00:00 Outpatient GC_BAHC_Tod d_J PRIV PRIV [id number] [facility] 2023-06-02 00:00:00 2023-06-02 00:00:00 Outpatient GC_BAHC_Tod d_J PRIV PRIV [id number] [facility] 2023-06-02 00:00:00 2023-06-02 00:00:00 Outpatient GC_BAHC_Tod d_J PRIV PRIV [id number] [facility] 2023-05-26 00:00:00 2023-05-26 00:00:00 Outpatient GC_BAHC_Tod d_J PRIV PRIV [id number] [facility] 2023-05-26 00:00:2023-05-26 00:00:00 Outpatient GC_BAHC_Tod d_J PRIV PRIV [id number] [facility] 2023-05-24 00:00:00 2023-05-24 00:00:00 Outpatient GC_BAHC_Tod d_J PRIV PRIV [id number] [facility] 2023-05-20 00:00:00 2023-05-20 00:00:00 Outpatient GC_BAHC_Tod d_J PRIV PRIV [id number] [facility] 2023-05-14 00:00:00 2023-05-14 00:00:00 Outpatient GC_BAHC_Tod d_J PRIV PRIV [id number] [facility] 2023-05-14 00:00:00 2023-05-14 00:00:00 Outpatient GC_BAHC_Tod d_J PRIV PRIV [id number] [facility] 2023-05-11 00:00:00 2023-05-11 00:00:00 Outpatient GC_BAHC_Tod d_J PRIV PRIV [id number] [facility] 2023-05-08 16:30:00 2023-05-08 17:09:00 Emergency X EM MCNEAL [facility] ERT [id number] [facility] 2023-05-08 16:30:00 2023-05-08 17:09:00 Emergency Em Mcneal [facility] [id number] 350.1.13.10 4.2.7.2.686 [id number] [facility] 2023-04-30 00:00:00 2023-04-30 00:00:00 Outpatient GC_BAHC_Tod d_J PRIV PRIV [id number] [facility] 2023-04-30 00:00:00 2023-04-30 00:00:00 Outpatient GC_BAHC_Tod d_J PRIV PRIV [id number] [facility] 2023-04-30 00:00:00 2023-04-30 00:00:00 Outpatient GC_BAHC_Tod d_J PRIV PRIV [id number] [facility] 2023-04-23 00:00:00 2023-04-23 00:00:00 Outpatient GC_BAHC_Tod d_J PRIV PRIV [id number] [facility] 2023-04-22 00:00:00 2023-04-22 00:00:00 Outpatient GC_BAHC_Tod d_J PRIV PRIV [id number] [facility] 2023-04-21 00:00:00 2023-04-21 00:00:00 Outpatient GC_BAHC_Tod d_J PRIV PRIV [id number] [facility] 2023-04-20 00:00:00 2023-04-20 00:00:00 Outpatient GC_BAHC_Tod d_J PRIV PRIV [id number] [facility] 2023-04-15 00:00:00 2023-04-15 00:00:00 Outpatient GC_BAHC_Tod d_J PRIV PRIV [id number] [facility] 2023-04-14 00:00:00 2023-04-14 00:00:00 Outpatient GC_BAHC_Tod d_J PRIV PRIV [id number] [facility] 2023-04-13 00:00:00 2023-04-13 00:00:00 Outpatient GC_BAHC_Tod d_J PRIV PRIV [id number] [facility] 2023-04-07 00:00:00 2023-04-07 00:00:00 Outpatient GC_BAHC_Tod d_J PRIV PRIV [id number] [facility] 2023-03-19 00:00:00 2023-03-19 00:00:00 Outpatient GC_BAHC_Tod d_J PRIV PRIV [id number] [facility] 2023-03-10 00:00:00 2023-03-10 00:00:00 Outpatient GC_BAHC_Tod d_J PRIV PRIV [id number] [facility] 2023-03-10 00:00:00 2023-03-10 00:00:00 Outpatient GC_BAHC_Tod d_J PRIV PRIV [id number] [facility] 2023-03-04 00:00:00 2023-03-04 00:00:00 Outpatient GC_BAHC_Tod d_J PRIV PRIV [id number] [facility] 2023-03-02 00:00:00 2023-03-02 00:00:00 Outpatient GC_BAHC_Tod d_J PRIV PRIV [id number] [facility] 2023-02-25 00:00:00 2023-02-25 00:00:00 Outpatient GC_BAHC_Tod d_J PRIV PRIV [id number] [facility] 2023-02-05 00:00:00 2023-02-05 00:00:00 LANDON Sullivan: [address] [place] [phone] , Ph. Formerly [facility] [id number] [facility] 2023-02-02 00:00:00 2023-02-02 00:00:00 Outpatient GC_BAHC_Tod d_J PRIV PRIV [id number] [facility] 2023-02-02 00:00:00 2023-02-02 00:00:00 Outpatient GC_BAHC_Tod d_J PRIV PRIV [id number] [facility] 2023-02-02 00:00:00 2023-02-02 00:00:00 Outpatient GC_BAHC_Tod d_J PRIV PRIV [id number] [facility] 2023-02-02 00:00:00 2023-02-02 00:00:00 Outpatient GC_BAHC_Tod d_J PRIV PRIV [id number] [facility] 2023-02-02 00:00:00 2023-02-02 00:00:00 Pino Almeida MD: [address] [place] [phone] , Ph. [facility]ly [facility] [id number] [facility] 2023-01-27 00:00:00 2023-01-27 00:00:00 LANDON Sullivan: [address] [place] [phone] , Ph. [facility] [id number] [facility] 2023-01-20 00:00:00 2023-01-20 00:00:00 Outpatient GC_BAHC_Tod d_J [facility] [id number] [facility] 2023-01-20 00:00:00 2023-01-20 00:00:00 Outpatient GC_BAHC_Tod d_J [facility] [id number] [facility] 2023-01-20 00:00:00 2023-01-20 00:00:00 Outpatient GC_BAHC_Tod d_J [facility] [id number] [facility] 2023-01-18 11:00:00 2023-01-18 11:31:14 Outpatient R ALVIN [facility] [id number] [facility] 2023-01-18 11:00:00 2023-01-18 11:31:14 Office Visit [facility] [id number] 350.1.13.10 4.2.7.2.686 [id number] [facility] 2023-01-12 00:00:00 2023-01-12 00:00:00 Telephone [facility] [id number] 350.1.13.10 4.2.7.2.686 [id number] [facility] 2022-12-29 00:00:00 2022-12-29 00:00:00 LANDON Sullivan: [address] [place] [phone] , Ph. [facility]ly [facility] [id number] [facility] 2022-12-19 00:00:00 2022-12-19 00:00:00 Outpatient GC_BAHC_Tod d_J [facility] [id number] [facility] 2022-12-19 00:00:00 2022-12-19 00:00:00 Outpatient GC_BAHC_Tod d_J [facility] [id number] [facility] 2022-12-18 00:00:00 2022-12-18 00:00:00 Outpatient GC_BAHC_Tod d_J [facility] [id number] [facility] 2022-12-15 00:00:00 2022-12-15 00:00:00 LANDON Sullivan: [address] [place] [phone] , Ph. [facility] [id number] [facility] 2022-12-08 15:30:00 2022-12-08 15:30:00 Outpatient NAA CORREA [facility] [id number] [facility] 2022-11-24 00:00:00 2022-11-24 00:00:00 LANDON Sullivan: [address] [place] [phone] , Ph. [facility] [id number] [facility] 2022-11-10 15:30:00 2022-11-10 15:30:00 Outpatient NAA CORREA [facility] [id number] [facility] 2022-11-02 00:00:00 2022-11-02 00:00:00 Patient Outreach Dmitri NimcoCherise DAVIS [id number] 350.1.13.10 [id number] [id number] [facility] 2022-10-30 00:00:00 2022-10-30 00:00:00 Outpatient GC_BAHC_Tod d_J PRIV PRIV [id number] [facility] 2022-10-30 00:00:00 2022-10-30 00:00:00 Outpatient GC_BAHC_Tod d_J PRIV PRIV [id number] [facility] 2022-10-30 00:00:00 2022-10-30 00:00:00 Outpatient GC_BAHC_Tod d_J PRIV PRIV [id number] [facility] 2022-10-29 00:00:00 2022-10-29 00:00:00 Outpatient GC_BAHC_Tod d_J PRIV PRIV [id number] [facility] 2022-10-29 00:00:00 2022-10-29 00:00:00 Outpatient GC_BAHC_Tod d_J PRIV PRIV [id number] [facility] 2022-10-16 00:00:00 2022-10-16 00:00:00 Randi Parsons PA: [address] [place] [phone] , Ph. [facility] [id number] [facility] 2022-10-09 00:00:00 2022-10-09 00:00:00 LANDON Sullivan: [address] [place] [phone] , Ph. [facility] [id number] [facility] 2022-10-03 00:00:00 2022-10-03 00:00:00 Outpatient GC_BAHC_Tod d_J PRIV PRIV [id number] [facility] 2022-10-03 00:00:00 2022-10-03 00:00:00 Outpatient GC_BAHC_Tod d_J PRIV PRIV [id number] [facility] 2022-10-03 00:00:00 2022-10-03 00:00:00 Outpatient GC_BAHC_Tod d_J PRIV PRIV [id number] [facility] 2022-10-03 00:00:00 2022-10-03 00:00:00 Outpatient GC_BAHC_Tod d_J PRIV PRIV [id number] [facility] 2022-10-03 00:00:00 2022-10-03 00:00:00 Outpatient GC_BAHC_Tod d_J PRIV PRIV [id number] [facility] 2022-10-03 00:00:00 2022-10-03 00:00:00 Outpatient GC_BAHC_Tod d_J PRIV PRIV [id number] [facility] 2022-09-29 00:00:00 2022-09-29 00:00:00 Outpatient GC_BAHC_Tod d_J PRIV PRIV [id number] [facility] 2022-09-29 00:00:00 2022-09-29 00:00:00 Outpatient GC_BAHC_Tod d_J PRIV PRIV [id number] [facility] 2022-09-29 00:00:00 2022-09-29 00:00:00 Outpatient GC_BAHC_Tod d_J PRIV PRIV [id number] [facility] 2022-09-29 00:00:00 2022-09-29 00:00:00 Pino Almeida MD: [address] [place] [phone] , Ph. Formerly [facility] - GC_[facility] [id number] [facility] 2022-09-25 10:30:00 2022-09-25 10:47:39 Outpatient R DEE DEE ESQUIVEL [facility] [id number] [facility] 2022-09-25 10:30:00 2022-09-25 10:47:39 [facility] 1.2.840.114 350.1.13.10 4.2.7.2.686 [id number] [facility] 2022-09-23 00:00:00 2022-09-23 00:00:00 Patient Outreach Ileana Szymanski 1.2.840.114 350.1.13.10 4.2.7.2.686 [id number] [facility] 2022-09-22 00:00:00 2022-09-22 00:00:00 Randi Parsons PA: [address] [place] [phone] , Ph. [facility] GC_[facility] [id number] [facility] 2022-09-21 00:00:00 2022-09-21 00:00:00 Outpatient GC_BAHC_Tod d_J [facility] [id number] [facility] 2022-09-20 00:00:00 2022-09-20 00:00:00 Outpatient GC_BAHC_Tod d_J [facility] [id number] [facility] 2022-09-15 00:00:00 2022-09-15 00:00:00 LANDON Sullivan: [address] [place] [phone] , Ph. [facility] [id number] [facility] 2022-09-10 13:00:00 2022-09-10 13:19:43 Outpatient R NAA LAMB [facility] [id number] [facility] 2022-09-10 13:00:00 2022-09-10 13:19:43 Office Visit Naa Lamb [facility] 1.2.840.114 350.1.13.10 4.2.7.2.686 [id number] [facility] 2022-09-10 00:00:00 2022-09-10 00:00:00 Patient Secure Msg Doctor Unassigned, [place] [facility] 1.840.114 350.1.13.10 4.2.7.2.686 [id number] [facility] 2022-09-10 00:00:00 2022-09-10 00:00:00 Orders Only Doctor Unassigned, [place] [facility] 1.840.114 350.1.13.10 4.2.7.2.686 [id number] [facility] 2022-09-09 00:00:00 2022-09-09 00:00:00 Outpatient GC_BAHC_Tod d_J [facility] [id number] [facility] 2022-09-08 00:00:00 2022-09-08 00:00:00 LANDON Sullivan: [address] [place] [phone] , Ph. [facility] - GC_[facility]HC_[facility] [id number] [facility] 2022-09-04 12:11:00 2022-09-04 23:59:00 Outpatient BLAIR YANG HOWARD [facility] [id number] [facility] 2022-09-04 12:11:00 2022-09-04 23:59:00 Hospital Encounter Blair Ervin 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 Ervin [facility] 1.2.840.114 350.1.13.10 4.2.7.2.686 [id number] [facility] 2022-08-21 09:00:00 2022-08-21 10:20:54 Outpatient BLAIR YANG HOWARD [facility] [id number] [facility] 2022-08-21 09:00:00 2022-08-21 10:20:54 Office Visit Ar[facility]io [facility] 1.840.114 350.1.13.10 4.2.7.2.686 [id number] [facility] 2022-08-21 00:00:00 2022-08-21 00:00:00 Orders Only Doctor Unassigned, [place] [facility] 1.2840.114 350.1.13.10 4.2.7.2.686 [id number] [id number] [facility] 2022-08-11 00:00:00 2022-08-11 00:00:00 Patient Outreach Ileana Szymanski 1.2.840.114 350.1.13.10 4.2.7.2.686 [id number] 403 [id number] [facility] 2022-07-30 13:00:00 2022-07-30 13:00:00 Outpatient PETROS DELEON [facility] [id number] [facility] 2022-07-23 00:00:00 2022-07-23 00:00:00 Patient Outreach Jayna Rizvi 1.2.840.114 350.1.13.10 4.2.7.2.686 [id number] [facility] 2022-07-21 00:00:00 2022-07-21 00:00:00 Orders Only Doctor Unassigned, [place] [facility] 1.2.840.114 350.1.13.10 4.2.7.2.686 [id number] [id number] [facility] 2022-06-27 00:00:00 2022-06-27 00:00:00 Orders Only Doctor Unassigned, [place] [facility] 1.2.840.114 350.1.13.10 4.2.7.2.686 [id number] [id number] [facility] 2022-06-11 00:00:00 2022-06-11 00:00:00 Patient Outreach Rosana Szymanskishireen Luong TRIXIE DAVIS 1.2.840.114 350.1.13.10 4.2.7.2.686 [id number] [facility] 2022-06-09 00:00:00 2022-06-09 00:00:00 Patient Outreach Jayna Rizvi TRIXIE OLIVERA PLAPADMINI 1.2.840.114 350.1.13.10 4.2.7.2.686 [id number] [facility] 2022-06-04 00:00:00 2022-06-04 00:00:00 Patient Outreach Zak Spears 1.2.840.114 350.1.13.10 4.2.7.2.686 [id number] 403 [id number] [facility] 2022-05-29 00:00:00 2022-05-29 00:00:00 Patient Outreach Zak Spears 1.2.840.114 350.1.13.10 4.2.7.2.686 [id number] [facility] 2022-05-25 00:00:00 2022-05-25 00:00:00 Patient Outreach Zak Spears 1.2.840.114 350.1.13.10 4.2.7.2.686 [id number] 403 [id number] [facility] 2022-05-22 00:00:00 2022-05-22 00:00:00 Patient Outreach Jayna Rizvi 1.2.840.114 350.1.13.10 4.2.7.2.686 [id number] 403 [id number] [facility] 2022-05-20 00:00:00 2022-05-20 00:00:00 Patient Outreach Zak Spears 1.2.840.114 350.1.13.10 4.2.7.2.686 [id number] 403 [id number] [facility] 2022-05-19 10:00:00 2022-05-19 11:00:00 Patient Outreach Jayna Rizvi 1.2.840.114 350.1.13.10 4.2.7.2.686 [id number] 403 [id number] [facility] 2022-05-18 00:00:00 2022-05-18 00:00:00 Patient Outreach Jayna RizviYoselin CAVAZOSPADMINI 1.2.840.114 350.1.13.10 4.2.7.2.686 [id number] 403 [id number] [facility] 2022-05-15 00:00:00 2022-05-15 00:00:00 Patient Outreach Jayna RizviGay OLIVERA PLAPADMINI 1.2.840.114 350.1.13.10 4.2.7.2.686 [id number] [facility] 2022-05-11 00:00:00 2022-05-11 00:00:00 Patient Outreach Kim, Darlene DAVIS 1.2.840.114 350.1.13.10 4.2.7.2.686 [id number] 403 [id number] [facility] 2022-05-08 00:00:00 2022-05-08 00:00:00 Transition of Care Nidia George 1.2.840.114 350.1.13.10 4.2.7.2.686 [id number] 403 [id number] [facility] 2022-05-06 00:00:00 2022-05-06 00:00:00 Patient Outreach Darlene Alvarez 1.2.840.114 350.1.13.10 4.2.7.2.686 [id number] 403 [id number] [facility] 2022-05-04 00:00:00 2022-05-04 00:00:00 Transition of Care Nidia George 1.2.840.114 350.1.13.10 4.2.7.2.686 [id number] [facility] 2022-05-02 11:45:00 2022-05-02 16:29:00 Emergency X ALICIA TALLEY [facility] ERT [id number] [facility] 2022-05-02 11:45:00 2022-05-02 16:29:00 Emergency Alicia Tal[facility] 1.2.840.114 350.1.13.10 4.2.7.2.686 [id number] [facility] 2022-04-29 16:35:00 2022-05-01 18:23:00 Inpatient X DANIEL KUNZ [facility] [id number] [facility] 2022-04-29 16:35:00 2022-05-01 18:23:00 Hospital Encounter Bernardo Rodríguez, Dalton Watson , Zo Kunz, Daniel Jennings[facility] 1.2840.114 350.1.13.10 4.2.7.2.686 [id number] [facility] 2022-04-28 18:09:00 2022-04-28 21:49:00 Emergency X BERNARDO RODRÍGUEZ [facility] ERT [id number] [facility] 2022-04-28 18:09:00 2022-04-28 21:49:00 Emergency Bernardo Rodríguez [facility] 1.2840.114 350.1.13.10 4.2.7.2.686 [id number] [id number] [facility] Results Test Description Test Time Test Comments Results Result Co mments Source TSH, THIRD [id number] 04:48:56* Test Item Value Reference Range Interpretation Comme nts TSH, THIRD GENERATION (test code = 2821) 0.698 UIU/ML 0.400-4.100 PSA, [id number] 04:48:56* Test Item Value Reference Range Interpretation Comme nts PSA, TOTAL (test code = 2606) 2.51 NG/ML See_Comment NOTE: Methodolog y is Zuleika Jayashree Electrochemiluminescence Immunoassay traceable to WHO reference standard 96/760. UNLESS OTHERWISE INDICATED, ALL TESTING PERFORMED [facility] [address] [place] [address] CLINICAL LAB SPECIALIST: KODI TRIANA M.D. CLIA NUMBER [id number] [facility] [place]. [id number] [Automated message] The system which generated this result transmitted reference range: <=4.00. The reference range was not used to interpret this result as normal/abnormal. LIPID [id number] 04:23:44* Test Item Value Reference Range Interpretation Comme nts CHOLESTEROL (test code = 2210) 199 MG/DL <200 TRIGLYCERIDES (test code = 2232) 136 MG/DL <150 HDL CHOLESTEROL (test code = 2220) 45 MG/DL >39 CALC LDL CHOL (test code = 2237) 129 MG/DL <100 H NOTE: CALCULATED LDL IS BASED ON CLAIR-MOSER METHOD WHICHINCLUDES ADJUSTABLE TRIGLYCERIDE:VLDL CHOLESTEROL RATIO.THIS FACTOR VARIES BY MEASURED TRIGLYCERIDE AND NON-HDLCHOLESTEROL CONCENTRATIONS WITH INCREASED CALCULATED LDL SEENIN HIGHER TRIGLYCERIDE OR LOWER NON-HDL SPECIMENS. FOR MOREINFORMATION, SEE CLIENT ANNOUNCEMENT AT [email or web address] RISK RATIO LDL/HDL (test code = 2237) 2.87 RATIO <3.55 COMPREHENSIVE METABOLIC [id number] 04:23:44* Test Item Value Reference Range Interpretation Comme nts GLUCOSE (test code = 2216) 89 MG/DL 70-99 BUN (test code = 2207) 14 MG/DL 8-23 CREATININE (test code = 2213) 0.85 MG/DL 0.80-1.40 eGFR (2020 CKD-EPI) (test code = 22076) 93 ML/MIN/1.73 >60 CALC BUN/CREAT (test code = 2234) 16 RATIO 6-28 SODIUM (test code = 2230) 147 MEQ/L 133-146 H POTASSIUM (test code = 2227) 4.2 MEQ/L 3.5-5.4 CHLORIDE (test code = 2214) 107 MEQ/L 95-107 CARBON DIOXIDE (test code = 2205) 28 MEQ/L 19-31 CALCIUM (test code = 2208) 9.9 MG/DL 8.5-10.5 PROTEIN, TOTAL (test code = 2228) 8.0 G/DL 6.1-8.3 ALBUMIN (test code = 2200) 4.7 G/DL 3.5-5.2 CALC GLOBULIN (test code = 2240) 3.3 G/DL 1.9-3.7 CALC A/G RATIO (test [...] 21 U/L 9-50 ALT (test code = 2219) 19 U/L 5-50 HEMOGLOBIN [id number] 03:10:09* Test Item Value Reference Range Interpretation Comme nts HEMOGLOBIN A1c (test code = 11800) 5.5 % 4.2-5.6 CBC W/AUTO DIFF WITH [id number] 01:57:11* Test Item Value Reference Range Interpretation [...] 0.00-0.10 ABS NUCLEATED RBCS (test code = 80785) 0.00 K/UL 0.00-0.11 Lactic Acid Whole [id number] 17:48:24* Test Item Value Reference Range Interpretation Comme nts LACTIC ACID (test code = 5904157653) 1.59 mmol/L 0.50-2.20 Lab Interpretation (test cod e = 26708-1) Normal [facility] METABOLIC PANEL (NA, K, CL, CO2, GLUCOSE, BUN, CREATININE, CA)2022-05-01 06:55:06* Test Item Value Reference Range Interpretation Comme nts NA (test code = 2579679262) 140 mmol/L 135-145 K (test code = 6927840470) 3.9 mmol/L 3.5-5.0 CL (test code = 6748597364) 111 mmol/L 98-108 H CO2 TOTAL (test code = 8717606368) 24 mmol/L 23-31 AGAP (test code = 9279383728) 2-16 BUN (test code = 2517604459) 25 mg/dL 7-23 H GLUCOSE (test code = 0600090978) 86 mg/dL 70-110 CREATININE (test code = 5820058375) 0.64 mg/dL 0.60-1.25 CALCIUM (test code = 5975172681) 8.0 mg/dL 8.6-10.6 L eGFR (test code = 1468714550) mL/min/1.73m2 NEYMAR (test code = NEYMAR) Association of [...] or abnormalities in imaging tests). Lab Interpretation (test code = 29915-7) [facility] 06:55:06* Test Item Value Reference Range Interpretation Comme nts MAGNESIUM (test code = 4776409971) 1.9 mg/dL 1.7-2.4 Lab Interpretation (test cod e = 22617-5) Normal [facility]2022-[facility]-08 06:55:06* Test Item Value Reference Range Interpretation Comme nts PHOSPHORUS (test code = 5046113152) 2.5 mg/dL 2.5-5.0 Lab Interpretation (test cod e = 78524-7) Normal [facility] (TTE)2022-04-30 20:28:01* Test Item Value Reference Range Interpretation Comme nts Height (test code = 7982565720) in Weight (test code = 9827209877) lbs Systolic BP (test code = 4193314306) mmHg Diastolic BP (test code = 7637417872) mmHg Heart Rate (test code = 0738321874) bpm LVOT stroke volume (test code = 1329913381) 47.40 cm3 EF(Teich) (test code = 4887891418) 63.50 % LVIDD (test code = 2298837704) 5.20 cm LVIDS (test code = 5186482872) 3.40 cm IVS (test code = 2629218178) 1.24 cm LVPWD (test code = 6961917842) 1.21 cm LVOT diameter (test code = 3455891884) 2.29 cm FS (test code = 2960121933) 35 % MV Peak E Jovon (test code = 3169354834) 65.6 cm/s E wave decelartion time (test code = 7877657949) 0.19 s LVOT peak jovon (test code = 1564333404) 65.1 cm/s LVOT mn grad (test code = 2577769264) mmHg LA size (test code = 0352382528) 3.6 cm Aortic valve mean velocity (test code = 6543322790) 73.8 cm/s Ao peak jovon (test code = 2936811938) 115.8 cm/s Ao VTI (test code = 9324330613) 17.4 cm AV LVOT peak gradient (test code = 2766994729) mmHg LVOT peak VTI (test code = 8650200578) 11.5 cm AV area by cont VTI (test code = 2761670531) 2.7 cm2 AV area peak jovon (test code = 8170289137) 2.3 cm2 LV V1 mean (test code = 7885875563) 40.20 cm/s Ao max PG (test code = 5223716525) 5.40 mm[Hg] MV Prop V (test code = 2984642043) 54.90 cm/s Ao root annulus (test code = 7373436087) 3.4 cm Ao root diam (test code = 9665065023) 3.40 cm AV peak gradient (test code = 9962102011) mmHg AV valve area (test code = 6056069256) 2.70 cm2 AV mean gradient (test code = 7409017267) mmHg Aortic root (test code = 2137192250) 3.4 cm PW (test code = 4161626900) 1.21 cm 0.6-1.1 EF - 2D (test code = 39913044) 63.50 % Interventricular Septum Diastolic Thickness by 2D (test code = 8582310) 1.24 cm BSA (test code = 2559620919) 1.84 m2 Radiology Study observation (narrative) (test code = 62766-5) NEYMAR (test code = NEYMAR) ?Left?Ventricle: There is mild concentric hypertrophy. Normal wall motion. Normal systolic function with a visually estimated EF of 55 - 60%. Septal motion is normal. Diastolic dysfunction, cannot be graded due to Afib ?Pulmonic?Valve: Pulmonic valve is normal in structure and function. ?Tricuspid?Valve: Tricuspid valve structure is normal. ?Aortic?Valve: No hemodynamically significant . [facility]OSYLATED HEM[facility]GLOBIN (A1C)2022-04-30 16:26:24* Test Item Value Reference Range Interpretation Comme nts HGB A1C (test code = 4548-4) 5.5 % 4.0-5.7 NEYMAR (test code = NEYMAR) Reference RangesNormal: <5.7%Prediabetes: 5.7 - 6.4%Diabetes: > 6.5% Lab Interpretation (test code = 26128-7) Normal [facility] METABOLIC PANEL (NA, K, CL, CO2, GLUCOSE, BUN, CREATININE, CA)2022-04-30 16:15:38* Test Item Value Reference Range Interpretation Comme nts NA (test code = 5674750210) 144 mmol/L 135-145 K (test code = 9942258717) 4.1 mmol/L 3.5-5.0 CL (test code = 8824459334) 113 mmol/L 98-108 H CO2 TOTAL (test code = 1794379258) 28 mmol/L 23-31 AGAP (test code = 7203000894) 2-16 BUN (test code = 0857142288) 31 mg/dL 7-23 H GLUCOSE (test code = 9593359916) 142 mg/dL 70-110 H CREATININE (test code = 4929691220) 0.65 mg/dL 0.60-1.25 CALCIUM (test code = 6269561819) 8.4 mg/dL 8.6-10.6 L eGFR (test code = 9598671022) mL/min/1.73m2 NEYMAR (test code = NEYMAR) Association of [...] or abnormalities in imaging tests). Lab Interpretation (test code = 71961-2) Abnormal [facility]2022-07-07 16:15:38* Test Item Value Reference Range Interpretation Comme [facility] MAGNESIUM (test code = 3855844951) 2.1 mg/dL 1.7-2.4 Lab Interpretation (test cod e = 05754-7) Normal [facility] HospitalaPTT (for use with Heparin Infusion)2022-04-30 13:43:36* Test Item Value Reference Range Interpretation Comme [facility] APTT Patient (test code = 3173-2) See_Comment H [Streetfa[employer]HD] The system which generated this result transmitted reference range: 26 - 36 Seconds. The reference range was not used to interpret this result as normal/abnormal. Lab Interpretation (test code = 84179-5) Abnormal [facility] HospitalFR 06:04:45* Test Item Value Reference Range Interpretation Comme [facility] FREE T3 (test code = 8970691813) 2.48 pg/mL 2.77-5.27 L Lab Interpretation (test cod e = 18735-9) Abnormal [facility] HospitalProthrombin Time / [id number] 05:58:05* Test Item Value Reference Range Interpretation Comme [facility] PROTIME PATIENT (test code = 5964-2) See_Comment H [[employer]HD] The system which generated this result transmitted reference range: 10.1 - 12.6 Seconds. The reference range was not used to interpret this result as normal/abnormal. INR (test code = 6301-6) Normal INR <1.1; Warfarin Therapeutic range 2.0 to 3.0 or 2.5 to 3.5, depending upon the indications. Lab Interpretation (test code = 78754-2) Abnormal [facility] Hospital[facility]PTT2022-07-07 05:58:05* Test Item Value Reference Range Interpretation Comme nts APTT Patient (test code = 3173-2) See_Comment [Automated [employer]] The system which generated this result transmitted reference range: 26 - 36 Seconds. The reference range was not used to interpret this result as normal/abnormal. Lab Interpretation (test code = 08586-2) Normal [facility] HospitalLIPID PANEL (65340)(TOTAL CHOLESTEROL, TRIGLYCERIDES, HDL)2022-04-30 05:46:07* Test Item Value Reference Range Interpretation Comme nts CHOL (test code = 9150035377) 180 mg/dL 120-200 HDL (test code = 8561880362) 30 mg/dL >40 L HDLC RATIO (test code = 4715716012) See_Comment H [Automated [employer]] The system which generated this result transmitted reference range: <=5.0. The reference range was not used to interpret this result as normal/abnormal. TRIG (test code = 6555652404) 104 mg/dL 30-170 LDL CHOL (test code = 06524-3) 129 mg/dL See_Comment [Automated [employer]] The system which generated this result transmitted reference range: <=160. The reference range was not used to interpret this result as normal/abnormal. VLDL (test code = 1983094486) 21 mg/dL 5-60 Lab Interpretation (test code = 39731-4) Abnormal [facility]2022-07-07 05:46:07* Test Item Value Reference Range Interpretation Comme [facility] MAGNESIUM (test code = 8744296578) 2.2 mg/dL 1.7-2.4 Lab Interpretation (test cod e = 78364-9) Normal [facility] HospitalCREATINE [id number] 05:46:07* Test Item Value Reference Range Interpretation Comme [facility] CK (test code = 1794817668) 47 U/L 33-194 Lab Interpretation (test cod e = 65894-9) Normal [facility] HospitalOSMOLALITY, SERUM OR [id number] 05:45:32 * Test Item Value Reference Range Interpretation Comme nts OSMOLALITY (test code = 2692-2) See_Comment HH [Automated messa ge] The system which generated this result transmitted reference range: 278 - 305 mOsm/kg. The reference range was not used to interpret this result as normal/abnormal. Lab Interpretation (test code = 90511-3) Abnormal [facility] HospitalTHYROID STIMULATING [id number] 03:23:38 * Test Item Value Reference Range Interpretation Comme nts TSH (test code = 0669931680) See_Comment L Biotin has been reported to cause a negative bias, interpret results relative to patient's use of biotin. [Automated message] The system which generated this result transmitted reference range: 0.45 - 4.70 mIU/L. The reference range was not used to interpret this result as normal/abnormal. Lab Interpretation (test code = 52351-5) Abnormal [facility] HospitalTroponin [id number] 00:18:11* Test Item Value Reference Range Interpretation Comments TROPONIN I (test code = 6440725277) 0.010 ng/mL See_Comment [Automated message] The system which generated this result transmitted reference range: <=0.034. The reference range was not used to interpret this result as normal/abnormal. NEYMAR (test code = NEYMAR) Reference (Normal) Range (defined by the 99th percentile reference [...] to patient's use of biotin. Lab Interpretation (test code = 88577-4) Normal [facility] HospitalN-TERMINAL [id number] 00:18:11* Test Item Value Reference Range Interpretation Comme nts NT-proBNP (test code = 2914798594) 1070 pg/mL See_Comment H [Automated message] The system which generated this result transmitted reference range: <=125. The reference range was not used to interpret this result as normal/abnormal. NEYMAR (test code = NEYMAR) Biotin has been reported to cause a negative bias, interpret results relative to patient's use of biotin. Lab Interpretation (test code = 67914-5) Abnormal [facility] HospitalCMP2022-07-07 00:04:30* Test Item Value Reference Range Interpretation Comme nts NA (test code = 8549144406) 152 mmol/L 135-145 H K (test code = 4759071828) 3.9 mmol/L 3.5-5.0 CL (test code = 2834899425) 119 mmol/L 98-108 H CO2 TOTAL (test code = 9315503710) 21 mmol/L 23-31 L AGAP (test code = 4618330662) 2-16 BUN (test code = 5476684616) 37 mg/dL 7-23 H GLUCOSE (test code = 3313441029) 112 mg/dL 70-110 H CREATININE (test code = 2985721769) 1.25 mg/dL 0.60-1.25 TOTAL BILI (test code = 6320594925) 1.3 mg/dL 0.1-1.1 H CALCIUM (test code = 7530208610) 9.2 mg/dL 8.6-10.6 T PROTEIN (test code = 0176485437) 7.5 g/dL 6.3-8.2 ALBUMIN (test code = 5451805761) 4.4 g/dL 3.5-5.0 ALK PHOS (test code = 8788073631) 96 U/L 34-122 ALTv (test code = 1742-6) 21 U/L 5-50 AST(SGOT) (test code = 8418389919) 21 U/L 13-40 eGFR (test code = 2692549082) mL/min/1.73m2 NEYMAR (test code = NEYMAR) Association of [...] or abnormalities in imaging tests). Lab Interpretation (test code = 04664-3) Abnormal [facility] with [id number] 23:40:41* Test Item Value Reference Range Interpretation Comme nts WBC (test code = 6690-2) See_Comment H [Automated [employer]] The system which generated this result transmitted reference range: 4.20 - 10.70 10*3/?L. The reference range was not used to interpret this result as normal/abnormal. RBC (test code = 789-8) See_Comment [[employer]HD] The system which generated this result transmitted reference range: 4.26 - 5.52 10*6/?L. The reference range was not used to interpret this result as normal/abnormal. HGB (test code = 718-7) 14.9 g/dL 12.2-16.4 HCT (test code = 4544-3) 43.5 % 38.4-49.3 MCV (test code = 787-2) 94.0 fL 81.7-95.6 MCH (test code = 785-6) 32.2 pg 26.1-32.7 MCHC (test code = 786-4) 34.3 g/dL 31.2-35.0 RDW-SD (test code = 71066-5) 50.5 fL 38.5-51.6 RDW-CV (test code = 788-0) 14.7 % 12.1-15.4 PLT (test code = 777-3) See_Comment [Automated [employer]] The system which generated this result transmitted reference range: 150 - 328 10*3/?L. The reference range was not used to interpret this result as normal/abnormal. MPV (test code = 87952-5) 11.5 fL 9.8-13.0 NRBC/100 WBC (test code = 3878729175) See_Comment [Automated [employer]age] The system which generated this result transmitted reference range: 0.0 - 10.0 /100 WBCs. The reference range was not used to interpret this result as normal/abnormal. NRBC x10^3 (test code = 0334871339) <0.01 See_Comment [Automated [employer]] The system which generated this result transmitted reference range: 10*3/?L. The reference range was not used to interpret this result as normal/abnormal. GRAN MAT (NEUT) % (test code = 770-8) 78.4 % IMM GRAN % (test code = 9913460625) 0.50 % LYMPH % (test code = 736-9) 9.5 % MONO % (test code = 5905-5) 11.0 % EOS % (test code = 713-8) 0.3 % BASO % (test code = 706-2) 0.3 % GRAN MAT x10^3(ANC) (test code = 4122119156) 9.11 10*3/uL 1.99-6.95 H IMM GRAN x10^3 (test code = 7015051527) 0.06 10*3/uL 0.00-0.06 LYMPH x10^3 (test code = 731-0) 1.10 10*3/uL 1.09-3.23 MONO x10^3 (test code = 742-7) 1.28 10*3/uL 0.36-1.02 H EOS x10^3 (test code = 711-2) 0.04 10*3/uL 0.06-0.53 L BASO x10^3 (test code = 704-7) 0.04 10*3/uL 0.01-0.09 Lab Interpretation (test code = 16782-2) Abnormal [facility] HospitalTroponin [id number] 00:50:12* Test Item Value Reference Range Interpretation Comments TROPONIN I (test code = 5823578653) 0.007 ng/mL See_Comment [Automated message] The system which generated this result transmitted reference range: <=0.034. The reference range was not used to interpret this result as normal/abnormal. NEYMAR (test code = NEYMAR) Reference (Normal) Range (defined by the 99th percentile reference [...] to patient's use of biotin. Lab Interpretation (test code = 58323-0) Normal [facility] Hospital[facility]-TERMINAL [id number] 00:50:12* Test Item Value Reference Range Interpretation Comme nts NT-proBNP (test code = 5365661215) 1120 pg/mL See_Comment H [Automated message] The system which generated this result transmitted reference range: <=125. The reference range was not used to interpret this result as normal/abnormal. NEYMAR (test code = NEYMAR) Biotin has been reported to cause a negative bias, interpret results relative to patient's use of biotin. Lab Interpretation (test code = 94411-6) Abnormal [facility] HospitalBasi Metabolic Panel (NA, K, CL, CO2, GLUCOSE, BUN, CREATININE, CA)2022-04-29 00:39:11* Test Item Value Reference Range Interpretation Comme nts NA (test code = 9710122547) 150 mmol/L 135-145 H K (test code = 8431217184) 4.0 mmol/L 3.5-5.0 CL (test code = 2927530180) 117 mmol/L 98-108 H CO2 TOTAL (test code = 2439612559) 20 mmol/L 23-31 L AGAP (test code = 3823416592) 2-16 BUN (test code = 2082816236) 23 mg/dL 7-23 GLUCOSE (test code = 3523729808) 105 mg/dL 70-110 CREATININE (test code = 4247489082) 0.89 mg/dL 0.60-1.25 CALCIUM (test code = 7359502591) 8.9 mg/dL 8.6-10.6 eGFR (test code = 9005409373) mL/min/1.73m2 NEYMAR (test code = NEYMAR) Association of [...] or abnormalities in imaging tests). Lab Interpretation (test code = 64122-0) [facility] (ALB, T.PRO, BILI T, BU/BC, ALT, AST, ALK PHOS)2022-04-29 00:39:11* Test Item Value Reference Range Interpretation Comme nts TOTAL BILI (test code = 3654545449) 1.3 mg/dL 0.1-1.1 H BILI UNCON (test code = 4024064937) 1.0 mg/dL 0.1-1.1 BILI CONJ (test code = 1041526059) 0.0 mg/dL 0.0-0.3 T PROTEIN (test code = 6075584169) 7.6 g/dL 6.3-8.2 ALBUMIN (test code = 6841609024) 4.2 g/dL 3.5-5.0 ALK PHOS (test code = 5042676060) 108 U/L 34-122 ALTv (test code = 1742-6) 25 U/L 5-50 AST(SGOT) (test code = 9282059789) 27 U/L 13-40 Lab Interpretation (test cod e = 82258-2) [facility] [id number] 00:39:11* Test Item Value Reference Range Interpretation Comme nts LIPASE (test code = 1499734161) 67 U/L 0-220 Lab Interpretation (test cod e = 33562-5) [facility] Llgffxgqipme0048-37-06 00:26:53* Test Item Value Reference Range Interpretation Comme nts WBC (test code = 6690-2) See_Comment [Automated [employer]] The system which generated this result transmitted reference range: 4.20 - 10.70 10*3/?L. The reference range was not used to interpret this result as normal/abnormal. RBC (test code = 789-8) See_Comment [Automated [employer]] The system which generated this result transmitted reference range: 4.26 - 5.52 10*6/?L. The reference range was not used to interpret this result as normal/abnormal. HGB (test code = 718-7) 16.4 g/dL 12.2-16.4 HCT (test code = 4544-3) 47.6 % 38.4-49.3 MCV (test code = 787-2) 94.4 fL 81.7-95.6 MCH (test code = 785-6) 32.5 pg 26.1-32.7 MCHC (test code = 786-4) 34.5 g/dL 31.2-35.0 RDW-SD (test code = 03496-9) 50.3 fL 38.5-51.6 RDW-CV (test code = 788-0) 14.6 % 12.1-15.4 PLT (test code = 777-3) See_Comment [Automated messa ge] The system which generated this result transmitted reference range: 150 - 328 10*3/?L. The reference range was not used to interpret this result as normal/abnormal. MPV (test code = 78601-0) 11.0 fL 9.8-13.0 NRBC/100 WBC (test code = 5593748128) See_Comment [Automated [employer] ssage] The system which generated this result transmitted reference range: 0.0 - 10.0 /100 WBCs. The reference range was not used to interpret this result as normal/abnormal. NRBC x10^3 (test code = 3349221431) <0.01 See_Comment [Automated messa ge] The system which generated this result transmitted reference range: 10*3/?L. The reference range was not used to interpret this result as normal/abnormal. GRAN MAT (NEUT) % (test code = 770-8) 65.4 % IMM GRAN % (test code = 3613688781) 0.20 % LYMPH % (test code = 736-9) 16.9 % MONO % (test code = 5905-5) 14.2 % EOS % (test code = 713-8) 2.6 % BASO % (test code = 706-2) 0.7 % GRAN MAT x10^3(ANC) (test code = 9883269568) 5.37 10*3/uL 1.99-6.95 IMM GRAN x10^3 (test code = 9766947959) <0.03 0.00-0.06 LYMPH x10^3 (test code = 731-0) 1.39 10*3/uL 1.09-3.23 MONO x10^3 (test code = 742-7) 1.17 10*3/uL 0.36-1.02 H EOS x10^3 (test code = 711-2) 0.21 10*3/uL 0.06-0.53 BASO x10^3 (test code = 704-7) 0.06 10*3/uL 0.01-0.09 Lab Interpretation (test code = 84698-7) Abnormal [facility] Notes Date/Time Note Provider Source 2023-07-13 09:00:10 c4ETuf37G4J3w2eTW5GO 7wpqi9JhIb/+/ 0kY42XQ93xfM1TiEX2q5XfbBCaxET3080-3 09:00:10 I contacted pt on 07/13/23 to schedule EP appt and echo -- pt is scheduled on 08/05/23. 55429-8Izhyiocsx encounter CleqJL5552-57-34S27:02:24Telephone encounter NoteTXT1.2.840.204021.1.13.104.2.7. 2.315392|[id number] for patient kran69352-0KuwwRM605376316Eopxomyw [address] Yn[id number] 6DWZINWPVSFLPWYFHFVAVRP1851-02-56I1 9:02:241.2.840.661472.1.72.3.15|1.2 .840.527231.1.13.104.2.7.2.727879_1 [id number] Naseem Hsu [facility] 2023-07-13 08:43:22 MJsmIhHhLkmdLuHQlr6U w507ZzBgsfomHIq +/zaf+QM4z9J6v3lJfne0BR7Lw2Dj7519-0 08:43:22 This case, recommended EP evaluation for ILR placement. Please also plan for echocardiogram on the same day as the EP visit. Referral placed. Please schedule 58865-9Gftxlpwvs encounter KqslBI9178-70-16R38:44:24Telephone encounter NoteTXT1.2.840.035068.1.13.104.2.7. 2.879814|[id number] for patient dlkj09702-8EityZQWGIJDYAQ[id number] 1AZGYHTQZFZMNXVETBDIPYZ0179-33-16Y9 8:44:241.2.840.423948.1.72.3.15|1.2 .840.832010.1.13.104.2.7.2.727879_1 [id number] [facility] 2023-07-12 16:11:50 rFYYLO9HR2V8Rb5VTWvd QvHyf7+P2TffZax TjtbF1a5FUoX4a/u/Z0tie54omLTh6601-3 6:11:50 Spoke with nursing at the [facility] [phone] . They are able to do the monitors but stated that the patient has frequent moments of belligerence and pulls everything off. They do not think he will agree to wearing it.Routed to Dr Lamb for advice 99826-5Ujezbckag encounter VmzrIZ1636-39-73S05:20:14Telephone encounter NoteTXT1.2.840.666089.1.13.104.2.7. 2.144949|[id number] for patient [id number] A Roller RN[id number] 0NQPGONDFTJLPYUZLUJRNLI4314-67-49G5 6:20:141.2.840.756904.1.72.3.15|1.2 .840.274609.1.13.104.2.7.2.727879_1 [id number] Elisha Navarrete RN [facility] 2023-07-12 14:43:57 CPtxdym+kqYFIE+xjsW1 TSNLhCVgZGLbSJo /fHAdKgLHXY4ys04Ax2eufVUBeFCB8140-3 4:43:57 Patient is currently in [facility]. Patient with history of atrial fibrillation along with syncopal episodes. Please reach out to the nursing network control supervisor [facility] to see if we can do 30-day event monitor. If so, we need to place the monitor. Orders placed. 13093-9Ylogwqsra encounter DoezWZ4119-20-57G52:47:03Telephone encounter NoteTXT1.2.840.825860.1.13.104.2.7. 2.711275|[id number] for patient ipwl34698-2TpxlZJDUZHKJHU[address] Bzzs[id number] 1MIKRZOVXOKLAMQIANIHTPN1831-11-70M4 4:47:031.2.840.052485.1.72.3.15|1.2 .840.120317.1.13.104.2.7.2.727879_1 [id number] [facility] 2023-07-12 14:43:51 Sh+hU3Prp6MvQo30bfIs vwIcQpPpo/KTh+0 eGMXvGmhSOEEnm2rS0GjRSLeETooT2604-8 4:43:51 ----- Message from Naa Lamb MD sent at 06/22/2023 12:44 PM CDT -----Reach to [facility] to see if they can do a 30-day event monitor. 43209-8Sangaweej encounter BzbjHV8069-75-80P84:43:51Telephone encounter NoteTXT1.2.840.159767.1.13.104.2.7. 2.229508|[id number] for patient erwe99739-9QqaaDYYVRPKHIG[address] EcxzV[id number] 0PKHFRCLRPAOBWUWMZGCVRM0338-72-99I2 4:43:511.2.840.572796.1.72.3.15|1.2 .840.071540.1.13.104.2.7.2.727879_1 [id number] [facility]"
--- NOTE | 2024-01-04 07:16 | EDPHYS ---
Physician Documentation [facility] Name: Donald Herron Age: 73 yrs Sex: Male : 1950 Arrival Date: 01/04/2024 Time: 05:47 Bed 20 Private MD: ED Physician Marcello Davidson HPI: 01/03 06:00 This 73 yrs old Male presents to ER via Unassigned with complaints of head sp4 injury . 07:10 73-year-old male presents from skilled nursing after he fell at unknown period of time on sp4 the floor. Patient has moderate dementia and is not able to provide any history. Patient was found to have left lateral scalp hematoma contusion and laceration.. Patient is on aspirin and Eliquis at the skilled nursing . . Historical: - Allergies: 06:11 Zofran; km8 - Home Meds: 06:11 atorvastatin 40 mg oral tablet [Active]; Eliquis 5 mg oral tablet [Active]; aspirin 81 km8 mg Oral tablet, delayed release (enteric coated) [Active]; acetaminophen-codeine 300-30 mg Oral tablet [Active]; clonidine HCl 0.1 mg Oral tablet [Active]; amlodipine 10 mg tablet [Active]; carvedilol 6.25 mg oral tablet [Active]; mirtazapine 7.5 mg Oral tablet [Active]; multivitamin with minerals-folic acid-lycopene oral [Active]; Depakote ER 250 mg Oral Tablet, Extended Release 24 hr [Active]; lidoderm patch [Active]; Trelegy Ellipta 200-62.5-25 mcg inhalation Blister, With Inhalation Device [Active]; potassium chloride 10 mEq Oral tablet, extended release [Active]; - PMHx: 06:11 Alzheimer's disease; Asthma; Atrial fibrillation; GERD; osteoarthritis; syncope; TIA; km8 - Immunization history:: Adult Immunizations unknown. - Social history:: Smoking status: unknown. - Family history:: not pertinent. ROS: 07:10 Constitutional: Negative for fever, chills, and weight loss, positive for acute head sp4 injury with hematoma and laceration to the scalp 07:10 All other systems are negative, Exam: 07:10 Constitutional: This is a well developed, well nourished patient who is awake, alert, sp4 and in no acute distress. Head/Face: Normocephalic, positive left parietotemporal hematoma with 3 cm long laceration without active bleeding. Laceration is jagged Eyes: Pupils equal round and reactive to light, extra-ocular motions intact. Lids and lashes normal. Conjunctiva and sclera are not injected. Cornea within normal limits. Periorbital areas with no swelling, redness, or edema. ENT: Nares patent. No nasal discharge, no septal abnormalities noted. Tympanic membranes are normal and external auditory canals are clear. Oropharynx with no redness, swelling, or masses, exudates, or evidence of obstruction, uvula midline. Mucous membranes moist. Neck: Trachea midline, no thyromegaly or masses palpated, and no cervical lymphadenopathy. Supple, full range of motion without nuchal rigidity, or vertebral point tenderness. Chest/axilla: Normal chest wall appearance and motion. Nontender with no deformity. No lesions are appreciated. Cardiovascular: Regular rate and rhythm with a normal S1 and S2. No gallops, murmurs, or rubs. Normal PMI, no JVD. No pulse deficits. Respiratory: Lungs have equal breath sounds bilaterally, clear to auscultation and percussion. No rales, rhonchi or wheezes noted. No increased work of breathing, no retractions or nasal flaring. Abdomen/GI: Soft, with normal bowel sounds. No distension or tympany. No guarding or rebound. No evidence of tenderness throughout. Back: No spinal tenderness. No costovertebral tenderness. Skin: Warm, dry with normal turgor. Normal color with no rashes, no lesions, and no evidence of cellulitis. MS/ Extremity: Pulses equal, no cyanosis. Neurovascular intact. Full, normal range of motion. Neuro: Awake and alert, GCS 15, oriented to person, place, time, and situation. Cranial nerves II-XII grossly intact. Motor strength 5/5 in all extremities. Sensory grossly intact. Psych: Awake, alert, with orientation to person, exam limited secondary to moderate dementia Vital Signs: 05:52 BP 119 / 80; Pulse 81; Resp 18; Temp 97(TE); Pulse Ox 97% on R/A; Pain 0/10; km8 06:00 BP 126 / 98; Pulse 94; Resp 18; Pulse Ox 96% on R/A; km8 07:10 BP 118 / 88; Pulse 88; Resp 18; Temp 97.2(O); Pulse Ox 99% on R/A; rs5 08:29 BP 122 / 87; Pulse 84; Resp 17; Pulse Ox 99% on R/A; rs5 09:49 BP 119 / 84; Pulse 80; Resp 18; Pulse Ox 98% on R/A; rs5 05:52 Pain Scale: Adult km8 [place] Coma Score: 05:52 Eye Response: spontaneous(4). Motor Response: obeys commands(6). Verbal Response: km8 confused(4). Total: 14. Laceration: 07:10 Wound Repair of 3cm ( 1.2in ) subcutaneous laceration to left side of the back of head. sp4 Irregularly shaped.. Moderate contamination.. Distal neuro/vascular/tendon intact. Anesthesia: Wound infiltrated with 10 mls of 1% lidocaine. Wound prep: Moderate cleansing by me, Copious irrigation. Skin closed with 6 3-0 Silk using interrupted sutures and sterile technique. Dressed with Neosporin. Patient tolerated well. MDM: 06:02 Patient medically screened. sp4 07:10 ED course: CLINICAL HISTORY: FALL, HEAD INJURY COMPARISON: None. TECHNIQUE: CT HEAD sp4 WITHOUT IV CONTRAST on 01/04/2024 6:24 AM CDT This exam was performed according to our departmental dose-optimization program, which includes automated exposure control, adjustment of the mA and/or kV according to patient size and/or use of iterative reconstruction technique. FINDINGS: There is no acute hemorrhage, mass effect or midline shift. Ashley-white differentiation is preserved. There is no hydrocephalus. There is no significant volume loss for age. There is a left parietal scalp contusion. The calvarium is intact. Orbits and globes are unremarkable. The paranasal sinuses are clear. Mastoid air cells are clear. IMPRESSION: No acute intracranial findings. . 07:10 Differential Diagnosis altered mental status, sepsis, flu, Head injury . Data reviewed: sp4 vital signs, nurses notes, EMS record, skilled nursing records, old medical records, radiologic studies, CT scan. Consideration of Admission/Observation Escalation of care including admission/observation considered. ED course: Was repaired. Patient stable for discharge to the skilled nursing.. 03 06:02 Order name: CT Head Brain wo Cont sp4 01/03 06:02 Order name: Gloves, Sterile; Complete Time: 07:06 sp4 01/03 06:02 Order name: Setup Suture Tray; Complete Time: 07:06 sp4 Administered Medications: 06:22 Drug: Tetanus-Diphtheria Toxoid IM Adult 0.5 ml IM once; Provide Vaccine Information kd4 Statement (VIS). {Global Creative Chairman: [employer]; Exp: WedNov 06 2025; Lot #: [id number]; Series: 1 of 1; Patient Consent: Obtained; Date/Time: ; Source Name: Donald Herron; Source Relationship: Self; Address Information: [address] [place] [address] [address], [facility] [address]; ; Education: Provided; VIS Presented Date: ; VIS Publication: Tetanus/Diphtheria (Td) Vaccine VIS 02/02/2017 (historic)} Route: IM; Site: left deltoid; 07:02 Follow up: Response: No adverse reaction rs5 07:06 Drug: Lidocaine Infiltration (1 %) 20 ml 20 ml Infiltration once; to bedside {Note: km8 given by Dr. Davidson.} Volume: 20 ml; Route: Infiltration; 07:29 Follow up: Response: No adverse reaction rs5 Disposition Summary: 01/04/24 07:15 Discharge Ordered Notes: Suture removal after 20 days. Location: Home sp4 Problem: new sp4 Symptoms: have improved sp4 Condition: Stable sp4 Diagnosis - Crushing injury of other parts of head sp4 - Acute head injury, acute left temporoparietal scalp laceration, acute scalp sp4 hematoma, fall in a skilled nursing Followup: sp4 - With: Private Physician - When: 10 - 14 days - Reason: Recheck today's complaints Discharge Instructions: - Discharge Summary Sheet sp4 - Laceration Care, Adult, Nisc-me-Cgyq sp4 Forms: - Patient Portal Instructions sp4 Signatures: Dispatcher [employer] Marcello Bee MD MD sp4 Caitlin Preciado RN RN km8 Thea Watkins RN RN kd4 Juan Rouse RN rs5
--- NOTE | 2024-01-04 07:16 | ER ---
Nurse's Notes [facility] Name: Donald Herron Age: 73 yrs Sex: Male : 1950 Arrival Date: 01/04/2024 Time: 05:47 Bed 20 Private MD: Diagnosis: Crushing injury of other parts of head;Acute head injury, acute left temporoparietal scalp laceration, acute scalp hematoma, fall in a usp Presentation: 01/03 05:52 Chief complaint: EMS states: toned to [facility] out for unwitnessed fall km8 with head injury and on blood thinners; pt at baseline orientation of A\\T\\Ox2; pt denies pain at this time. Coronavirus screen: Client denies travel out of the [place] in the last 14 days. Ebola Screen: No symptoms or risks identified at this time. Initial Sepsis Screen: Does the patient meet any 2 criteria? No. Patient's initial sepsis screen is negative. Does the patient have a suspected source of infection? No. Patient's initial sepsis screen is negative. Risk Assessment: Do you want to hurt yourself or someone else? Patient reports no desire to harm self or others. Onset of symptoms was January 04, 2024 at 05:10. 05:52 Method Of Arrival: EMS: [facility] 8 05:52 Acuity: [place] 2 km8 Triage Assessment: 05:52 General: Appears in no apparent distress. comfortable, Behavior is calm. Pain: Denies km8 pain. EENT: poor hygiene . Neuro: Level of Consciousness is awake, alert, obeys commands, confused, Oriented to person, place. Cardiovascular: Denies chest pain, Patient's skin is warm and dry. Respiratory: Airway is patent Respiratory effort is even, unlabored, Respiratory pattern is regular, symmetrical. GI: No signs and/or symptoms were reported involving the gastrointestinal system. : No signs and/or symptoms were reported regarding the genitourinary system. Derm: Skin is intact, is fragile, Skin is dry, Skin is normal, Skin temperature is cool Bruising that is dark purple. Musculoskeletal: Range of motion: intact in all extremities. Historical: - Allergies: 06:11 Zofran; km8 - Home Meds: 06:11 atorvastatin 40 mg oral tablet [Active]; Eliquis 5 mg oral tablet [Active]; aspirin 81 km8 mg Oral tablet, delayed release (enteric coated) [Active]; acetaminophen-codeine 300-30 mg Oral tablet [Active]; clonidine HCl 0.1 mg Oral tablet [Active]; amlodipine 10 mg tablet [Active]; carvedilol 6.25 mg oral tablet [Active]; mirtazapine 7.5 mg Oral tablet [Active]; multivitamin with minerals-folic acid-lycopene oral [Active]; Depakote ER 250 mg Oral Tablet, Extended Release 24 hr [Active]; lidoderm patch [Active]; Trelegy Ellipta 200-62.5-25 mcg inhalation Blister, With Inhalation Device [Active]; potassium chloride 10 mEq Oral tablet, extended release [Active]; - PMHx: 06:11 Alzheimer's disease; Asthma; Atrial fibrillation; GERD; osteoarthritis; syncope; TIA; km8 Historical Immunization: - Administered Vaccines 07:06 Lidocaine Infiltration (1 %) 20 ml km8 06:22 Tetanus-Diphtheria Toxoid IM Adult 0.5 ml kd4 Greenhouse Or Nursery Transplanter: Flexion; Exp: WedNov 06 2025; Lot #: [id number]; Series: 1 of 1; Patient Consent: Obtained; Date/Time: ; Source Name: Donald Herron; Source Relationship: Self; Address Information: [address] [place] [address] [address], [place] [address]; ; Education: Provided; VIS Presented Date: ; VIS Publication: Tetanus/Diphtheria (Td) Vaccine VIS 02/02/2017 (historic) - Immunization history:: Adult Immunizations unknown. - Social history:: Smoking status: unknown. - Family history:: not pertinent. Screenin:52 [facility] ED Fall Risk Assessment (Adult) History of falling in the last 3 months, km8 including since admission Yes- single mechanical fall (1 pt) Confusion or Disorientation Yes (5 pts) Intoxicated or Sedated No (0 pts) Impaired Gait Yes (1 pt) Mobility Assist Device Used No (0 pt) Altered Elimination Yes (1 pt) Score/Fall Risk Level 3 or more points = High Risk Oriented to surroundings, Maintained a safe environment, Educated pt \\T\\ family on fall prevention, incl call for assistance when getting out of bed, Assessed \\T\\ reinforced patient's understanding of fall precautions, Provided non-skid footwear, Hourly rounding (assess needs \\T\\ fall precautionary measures) done, Used ambulatory aids as needed (educated on \\T\\ assisted with), Used gait belt as appropriate Implemented a Fall Risk Plan of Care, Remained w/in arm's length of patient and in sight while toileting, Offered frequent toileting (1:1 observation), Remained with patient while ambulating. Abuse screen: Denies threats or abuse. Denies injuries from another. Nutritional screening: No deficits noted. Tuberculosis screening: No symptoms or risk factors identified. Assessment: 05:52 Reassessment: see triage notes/assessment. km8 07:00 Reassessment: Patient appears in no apparent distress at this time. No changes from km8 previously documented assessment. 07:05 General: Appears in no apparent distress. comfortable, Behavior is calm, cooperative. rs5 Pain: Denies pain. Neuro: Level of Consciousness is awake, alert, obeys commands, Oriented to person, place. Cardiovascular: Patient's skin is warm and dry. Rhythm is regular. Respiratory: Airway is patent Respiratory effort is even, unlabored, Respiratory pattern is regular, symmetrical. GI: Abdomen is flat, non-distended, Abd is soft and non tender. : No signs and/or symptoms were reported regarding the genitourinary system. EENT: No signs and/or symptoms were reported regarding the EENT system. Derm: Skin is intact, Skin is pink, warm \\T\\ dry. Musculoskeletal: Circulation, motion, and sensation intact. 07:20 Reassessment: Pt up for discharge, 3 failed attempts to get in touch with [address] by phone. 07:28 Reassessment: 2 Failed attempts to get in touch with [facility] by phone, rs5 no option to leave voicemail. 07:45 Reassessment: Successful attempt to get in touch with [facility] by phone, rs5 report given to BRYCE Duran. RN agreed to arrange for transportation, estimated time for arrival is one hour . 07:45 Reassessment: No changes from previously documented assessment. rs5 08:27 Reassessment: Patient and/or family updated on plan of care and expected duration. Pain rs5 level reassessed. eyes closed, respirations even and unlabored, normal sinus rhythm noted on monitor, side rails up x2, bed locked and in lowest positions, call light within reaach. 09:34 Reassessment: No changes from previously documented assessment. Successful attempt to rs5 contact [facility], [facility] "There was a delay in arranging for transportation but we are working on it now". 10:01 Reassessment: Patient and/or family updated on plan of care and expected duration. Pain rs5 level reassessed. Report given to transport personnel from [facility] at bedside for transportation, discharge instructions given [facility] personnel at bedside and called to BRYCE Duran from [facility] by phone. Discharge instructions signed by [facility] personnel . Vital Signs: 05:52 BP 119 / 80; Pulse 81; Resp 18; Temp 97(TE); Pulse Ox 97% on R/A; Pain 0/10; km8 06:00 BP 126 / 98; Pulse 94; Resp 18; Pulse Ox 96% on R/A; km8 07:10 BP 118 / 88; Pulse 88; Resp 18; Temp 97.2(O); Pulse Ox 99% on R/A; rs5 08:29 BP 122 / 87; Pulse 84; Resp 17; Pulse Ox 99% on R/A; rs5 09:49 BP 119 / 84; Pulse 80; Resp 18; Pulse Ox 98% on R/A; rs5 05:52 Pain Scale: Adult km8 [place] Coma Score: 05:52 Eye Response: spontaneous(4). Motor Response: obeys commands(6). Verbal Response: km8 confused(4). Total: 14. ED Course: 05:51 Patient arrived in ED. km8 05:52 Arm band placed on right wrist. km8 05:52 Patient has correct armband on for positive identification. Placed in gown. Bed in low km8 position. Call light in reach. Side rails up X2. Pulse ox on. NIBP on. Warm blanket given. 05:52 Patient maintains SpO2 saturation greater than 95% on room air. km8 05:56 Thea Watkins RN is Primary Nurse. kd4 06:00 Marcello Davidson MD is Attending Physician. sp4 06:04 Triage completed. km8 07:05 Report given to BRYCE Martinez. km8 08:28 No provider procedures requiring assistance completed. rs5 08:35 Primary Nurse role handed off by Thea Watkins RN jl7 10:00 Patient did not have IV access during this emergency room visit. IV discontinued, rs5 intact, bleeding controlled. Administered Medications: 06:22 Drug: Tetanus-Diphtheria Toxoid IM Adult 0.5 ml IM once; Provide Vaccine Information kd4 Statement (VIS). {Greenhouse Or Nursery Transplanter: Flexion; Exp: WedNov 06 2025; Lot #: [id number]; Series: 1 of 1; Patient Consent: Obtained; Date/Time: ; Source Name: Donald Herron; Source Relationship: Self; Address Information: [address] [place] [address] [address], [facility] [address]; ; Education: Provided; VIS Presented Date: ; VIS Publication: Tetanus/Diphtheria (Td) Vaccine VIS 02/02/2017 (historic)} Route: IM; Site: left deltoid; 07:02 Follow up: Response: No adverse reaction rs5 07:06 Drug: Lidocaine Infiltration (1 %) 20 ml 20 ml Infiltration once; to bedside {Note: km8 given by Dr. Davidson.} Volume: 20 ml; Route: Infiltration; 07:29 Follow up: Response: No adverse reaction rs5 Medication: 06:24 Vaccine Information Statement (VIS) provided today. Questions and/or concerns kd4 addressed. VIS edition date: May 30, 2021. Outcome: 07:15 Discharge ordered by . sp4 10:05 Discharged to usp. Report called to BRYCE Duran Transfer form completed. rs5 10:05 Condition: stable rs5 10:05 Discharge instructions given to usp, Instructed on discharge instructions, follow up and referral plans. 10:10 Patient left the ED. rs5 Signatures: Cheyanne Odonnell RN RN jl7 Juan Rouse RN RN rs5 Marcello Davidson MD MD sp4 Caitlin Preciado RN RN km8 Thea Watkins RN RN kd4 Corrections: (The following items were deleted from the chart) 10:39 10:24 Patient left the ED. rs5 rs5 10:45 10:45 Response: No adverse reaction rs5 rs5
[2024-01-04 10:51] VITALS: BP 122/87; TEMP 97.2; O2SAT 99
--- NOTE | 2024-01-04 11:32 | RAD REPORT ---
EXAM DESCRIPTION: CT - Head Brain Wo Cont - 01/04/2024 7:04 am CLINICAL HISTORY: FALL, HEAD INJURY COMPARISON: None. TECHNIQUE: CT HEAD WITHOUT IV CONTRAST on 01/04/2024 6:24 AM CDT This exam was performed according to our departmental dose-optimization program, which includes autom ated exposure control, adjustment of the mA and/or kV according to patient size and/or use of iterati ve reconstruction technique. FINDINGS: There is no acute hemorrhage, mass effect or midline shift. Ashley-white differentiation is preserved. There is no hydrocephalus. There is no significant volume loss for age. There is a left pa rietal scalp contusion. The calvarium is intact. Orbits and globes are unremarkable. The paranasal sinuses are clear. Mastoid air cells are clear. IMPRESSION: No acute intracranial findings. Electronically signed by: Fabrizio Ventura MD 01/04/2024 06:49 AM CDT Due to temporary technical issues with the PACS/Fluency reporting system, reports are being signed by the in house radiologist without review as a courtesy to ensure prompt reporting. The interpreting r adiologist is fully responsible for the content of the report.
== END ==
LOC: ER 05:47
PROC: 0HQ0XZZ Repair Scalp Skin, External Approach (ICD-10-PCS; principal; 2024-01-04)
DX: S01.01XA Laceration without foreign body of scalp, initial encounter (principal); W18.30XA Fall on same level, unspecified, initial encounter; Y92.129 Unspecified place in nursing home as the place of occurrence of the external cause; Z23 Encounter for immunization; G30.9 Alzheimer's disease, unspecified; F02.80 Dementia in other diseases classified elsewhere, unspecified severity, without behavioral disturbance, psychotic disturbance, mood disturbance, and anxiety; I48.91 Unspecified atrial fibrillation; Z79.01 Long term (current) use of anticoagulants; Z79.82 Long term (current) use of aspirin
CPT/HCPCS: 70450; 12002; J2001

== ENCOUNTER 2024-01-06 14:25 | Inpatient (IN) | payer OTHER ==
--- OUTSIDE RECORDS SUMMARY | 2024-01-06 14:33 | XMS REPORT | Continuity of Care Document ---
Author Name Unknown Address [address] [facility] [address] [place] [address] [facility]cessentia healthect Address [address] [facility] [place] [address] Care Team Providers Care Field Support Representative Name Role Phone PCP, PATIENT DOES NOT HAVE A Primary Care Physic marietta Unavailable ANNA RADFORD Attending Clinician Unav ailable ANNA RADFORD Attending Clinician Unav ailable ABELARDO_BAHHarrison_Issa_J Attending Clinician Unavailable NAA LAMBHLenore Attending Clinician UnavailNaa Tierney MDHLenore Attending Clinician [phone] Doctor Unassigned, [place] Attending Clinician U EM [place] Attending Clinician Unavailab Em Castillo DO Attending Clinician [phone] DEE DEE ESQUIVEL Attending Clinician Unavailable Jayna Rizvi RN Attending Clinician [phone] Ileana Szymanski Attending Clinician [phone] BLAIR ERVIN Attending Clinician Unavail able BLAIR ERVIN Attending Clinician Unavail Blair Phillips MD Attending Clinician [phone] Lab, Ang - Db Attending Clinician Unavailable PETROS JETER Attending Clinician Unavailable Zak Hernandez Attending Clinician Unavail able Darlene Alvarez RN Attending Clinician [phone] Valeriano Ariel BARRETT, Nidia Attending Clinician + [phone] ALICIA TALLEY Attending Clinician Unavailable Mayank VILLA, Alicia Luong Attending Clinician [phone] DANIEL KUNZ Attending Clinician Unavailshireen Rodríguez MD, Bernardo Krause Attending Clinician [phone] Dalton Chino DO Attending Clinician [phone] Shirley VILLA, Zo Victoria Attending Clinician + Daniel Kunz MD Attending Clinician + [phone] Dick VILLA, Petar Baig Attending Clinician + [phone] BERNARDO RODRÍGUEZ Attending Clinician Unavail able GC_BAHC_Todd_J Admitting Clinician Unavailable BLAIR ERVIN Admitting Clinician Unavail able DANIEL KUNZ Admitting Clinician UnavailDaniel Napier MD Admitting Clinician [phone] BERNARDO RODRÍGUEZ Admitting Clinician Unavail able Payers Payer Name Policy Type Policy Number Effective Date Expirati on Date Source [place] [employer] [id number] 2022 00:00:00 [facility] [place] - STAR+[place]US (MEDICAID REPLACEMENT - HMO) [id number] 2022 00:00:00 MEDICARE PART A \\T\\ B [id number] 2022 00:00:00 MEDICAID OF [place] [id number] 2022 00:00:00 MEDICAID - [id number] - PENDING [...] falls Disease Active 2022-10 0- 00:00: 00 [facility] Unspecifie d abnormalit ies of gait and mobility Unspecifie d abnormalit ies of gait and mobility Disease Active 2022-10 0- 00:00: 00 [facility] Mass of subcutaneo us tissue of back [...] 2-10 00:00: 00 [facility] in Assisted Problem Active 2021-10 2-13 00:00: 00 [facility] [...] Vascular Disease Problem Active 2021-10 00:00: 00 [facility] Atrial fibrillati on Atrial fibrillati on Disease Active 04-30 00:00: 00 [facility] DEBORAH (acute kidney injury) DEBORAH (acute kidney injury) Disease Active 04-29 00:00: 00 [facility] CVA (cerebral infarction ) CVA (cerebral infarction ) Disease Active 04-17 00:00: 00 [facility] Cerebral infarction Cerebral infarction Disease Active 03-23 00:00: 00 [facility] Slurred speech Slurred speech Disease Active 03-22 00:00: 00 [facility] 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, 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, Senile Onset Problem Active [facility] Hypertensi ve heart disease Hypertensi ve Heart Disease Problem Active [facility] Chronic obstructiv e lung disease Chronic Obstructiv e Lung Disease Problem Active [facility] Hyperlipid emia Hyperlipid emia Problem Active [facility] Allergies, Adverse Reactions, Alerts Allergy Name Allergy Type Status Severity Reaction(s) Onset Date Inactive Date Treating Clinician Comments Source NO KNOWN ALLERGIE S Drug Class Active [facility] Social History Social Habit Start Date Stop Date Quantity Comments Source Gender identity [facility] Sexual orientation [facility] History SDOH Alcohol Std Drinks [facility] History SDOH Alcohol Comment [place] [facility] History SDOH Physical Activity MPS [facility] History of tobacco use Passive smoker [facility] Alcohol intake 2023-08-19 00:00:00 2023-08-19 00:00:00 1.14 /d [facility] Exposure to SARS-CoV-2 (event) 2023-01-08 00:00:00 2023-01-18 10:33:00 Not sure [facility] Cigarettes smoked current (pack per day) - Reported 2022-05-19 00:00:00 2022-05-19 00:00:00 [facility] Cigarette pack-years 2022-05-19 00:00:00 2022-05-19 00:00:00 [facility] Tobacco use and exposure 2022-05-19 00:00:00 2022-05-19 00:00:00 Smokeless tobacco non-user [facility] History of Social function 2022-04-30 00:00:00 2022-04-30 00:00:00 [facility] History SDOH Alcohol Frequency 2022-04-30 00:00:00 2022-04-30 00:00:00 5 [facility] History SDOH Alcohol Binge 2022-04-30 00:00:00 2022-04-30 00:00:00 5 [facility] History SDOH Social Connections Phone 2022-04-30 00:00:00 2022-04-30 00:00:00 5 [facility] SDOH Social Connections Get Together 2022-04-30 00:00:00 2022-04-30 00:00:00 5 [facility] SDOH Social Connections Adventism 2022-04-30 00:00:00 2022-04-30 00:00:00 1 [facility] History SDOH Social Connections Membership 2022-04-30 00:00:00 2022-04-30 00:00:00 1 [facility] SDOH Social Connections Meetings 2022-04-30 00:00:00 2022-04-30 00:00:00 1 [facility] SDOH Social Connections Living 2022-04-30 00:00:00 2022-04-30 00:00:00 6 [facility] SDOH Physical Activity DPW 2022-04-30 00:00:00 2022-04-30 00:00:00 0 [facility] History SDOH Stress 2022-04-30 00:00:00 2022-04-30 00:00:00 3 [facility] History SDOH Financial 2022-04-30 00:00:00 2022-04-30 00:00:00 1 [facility] History SDOH Food Worry 2022-04-30 00:00:00 2022-04-30 00:00:00 3 [facility] History SDOH Food Scarcity 2022-04-30 00:00:00 2022-04-30 00:00:00 3 [facility] History SDOH Transport Med 2022-04-30 00:00:00 2022-04-30 00:00:00 1 [facility] History SDOH Transport Non-Med 2022-04-30 00:00:00 2022-04-30 00:00:00 1 [facility] Sex Assigned At 1950 00:00:00 1950 00:00:00 [facility] Smoking Status Start Date Stop Date Source Heavy Tobacco Smoker [facility] Smokes tobacco daily 2022-05-19 00:00:00 [facility] Ex-smoker 2022-04-30 00:00:00 2022-04-30 00:00:00 [facility] Medications Ordered Medication Name Filled Medication Name Start Date Stop Date Current Medication? Ordering Clinician Indication Dosage Frequency Signature (SIG) Comments Components Source carvediloL 6.25 mg tablet 06-22 10:01: 54 Yes 6.25mg Take 1 tablet by mouth in the morning and 1 tablet in the evening. Take with meals. [facility] atorvastati n 40 mg tablet 06-22 10:01: 54 Yes 40mg Take 1 tablet by mouth at bedtime. [facility] amLODIPine 10 mg tablet 06-22 10:01: 54 Yes 10mg Take 1 tablet by mouth in the morning. [facility] aspirin 81 mg chewable tablet 06-22 10:01: 54 Yes 81mg Take 1 tablet by mouth in the morning. [facility] cloNIDine 0.1 mg tablet 06-22 10:01: 54 Yes .1mg Take 1 tablet by mouth as needed. [facility] divalproex 125 mg EC tablet 06-22 10:01: 54 Yes 125mg Take 1 tablet by mouth in the morning and 1 tablet in the evening. [facility] divalproex 250 mg EC tablet 06-22 10:01: 54 Yes 250mg Take 1 tablet by mouth in the morning and 1 tablet in the evening. [facility] apixaban 5 mg tablet 06-22 10:01: 54 Yes 5mg Take 1 tablet by mouth in the morning and 1 tablet in the evening. [facility] ergocalcife rol, vitamin D2, (ERGOCAL ORAL) 06-22 10:01: 54 Yes 1.25mg Take 1.25 mg by mouth in the morning. [facility] fluticasone -umeclidin- vilanter (TRELEGY ELLIPTA) 200-62.5-25 mcg DsDv 06-22 10:01: 54 Yes Inhale daily. [facility] carvediloL 6.25 mg tablet 06-22 10:01: 54 Yes 6.25mg Take 1 tablet by mouth in the morning and 1 tablet in the evening. Take with meals. [facility] atorvastati n 40 mg tablet 06-22 10:01: 54 Yes 40mg Take 1 tablet by mouth at bedtime. [facility] amLODIPine 10 mg tablet 06-22 10:01: 54 Yes 10mg Take 1 tablet by mouth in the morning. [facility] aspirin 81 mg chewable tablet 06-22 10:01: 54 Yes 81mg Take 1 tablet by mouth in the morning. [facility] cloNIDine 0.1 mg tablet 06-22 10:01: 54 Yes .1mg Take 1 tablet by mouth as needed. [facility] divalproex 125 mg EC tablet 06-22 10:01: 54 Yes 125mg Take 1 tablet by mouth in the morning and 1 tablet in the evening. [facility] divalproex 250 mg EC tablet 06-22 10:01: 54 Yes 250mg Take 1 tablet by mouth in the morning and 1 tablet in the evening. [facility] apixaban 5 mg tablet 06-22 10:01: 54 Yes 5mg Take 1 tablet by mouth in the morning and 1 tablet in the evening. [facility] ergocalcife rol, vitamin D2, (ERGOCAL ORAL) 06-22 10:01: 54 Yes 1.25mg Take 1.25 mg by mouth in the morning. [facility] fluticasone -umeclidin- vilanter (TRELEGY ELLIPTA) 200-62.5-25 mcg DsDv 06-22 10:01: 54 Yes Inhale daily. [facility] carvediloL 6.25 mg tablet 06-22 10:01: 54 Yes 6.25mg Take 1 tablet by mouth in the morning and 1 tablet in the evening. Take with meals. [facility] atorvastati n 40 mg tablet 06-22 10:01: 54 Yes 40mg Take 1 tablet by mouth at bedtime. [facility] amLODIPine 10 mg tablet 06-22 10:01: 54 Yes 10mg Take 1 tablet by mouth in the morning. [facility] aspirin 81 mg chewable tablet 06-22 10:01: 54 Yes 81mg Take 1 tablet by mouth in the morning. [facility] cloNIDine 0.1 mg tablet 06-22 10:01: 54 Yes .1mg Take 1 tablet by mouth as needed. [facility] divalproex 125 mg EC tablet 06-22 10:01: 54 Yes 125mg Take 1 tablet by mouth in the morning and 1 tablet in the evening. [facility] divalproex 250 mg EC tablet 06-22 10:01: 54 Yes 250mg Take 1 tablet by mouth in the morning and 1 tablet in the evening. [facility] apixaban 5 mg tablet 06-22 10:01: 54 Yes 5mg Take 1 tablet by mouth in the morning and 1 tablet in the evening. [facility] ergocalcife rol, vitamin D2, (ERGOCAL ORAL) 06-22 10:01: 54 Yes 1.25mg Take 1.25 mg by mouth in the morning. [facility] fluticasone -umeclidin- vilanter (TRELEGY ELLIPTA) 200-62.5-25 mcg DsDv 06-22 10:01: 54 Yes Inhale daily. [facility] carvediloL 6.25 mg tablet 06-22 10:01: 54 Yes 6.25mg Take 1 tablet by mouth in the morning and 1 tablet in the evening. Take with meals. [facility] atorvastati n 40 mg tablet 06-22 10:01: 54 Yes 40mg Take 1 tablet by mouth at bedtime. [facility] amLODIPine 10 mg tablet 06-22 10:01: 54 Yes 10mg Take 1 tablet by mouth in the morning. [facility] aspirin 81 mg chewable tablet 06-22 10:01: 54 Yes 81mg Take 1 tablet by mouth in the morning. [facility] cloNIDine 0.1 mg tablet 06-22 10:01: 54 Yes .1mg Take 1 tablet by mouth as needed. [facility] divalproex 125 mg EC tablet 06-22 10:01: 54 Yes 125mg Take 1 tablet by mouth in the morning and 1 tablet in the evening. [facility] divalproex 250 mg EC tablet 06-22 10:01: 54 Yes 250mg Take 1 tablet by mouth in the morning and 1 tablet in the evening. [facility] apixaban 5 mg tablet 06-22 10:01: 54 Yes 5mg Take 1 tablet by mouth in the morning and 1 tablet in the evening. [facility] ergocalcife rol, vitamin D2, (ERGOCAL ORAL) 06-22 10:01: 54 Yes 1.25mg Take 1.25 mg by mouth in the morning. [facility] fluticasone -umeclidin- vilanter (TRELEGY ELLIPTA) 200-62.5-25 mcg DsDv 06-22 10:01: 54 Yes Inhale daily. [facility] carvediloL 6.25 mg tablet 06-22 10:01: 54 Yes 6.25mg Take 1 tablet by mouth in the morning and 1 tablet in the evening. Take with meals. [facility] atorvastati n 40 mg tablet 06-22 10:01: 54 Yes 40mg Take 1 tablet by mouth at bedtime. [facility] amLODIPine 10 mg tablet 06-22 10:01: 54 Yes 10mg Take 1 tablet by mouth in the morning. [facility] aspirin 81 mg chewable tablet 06-22 10:01: 54 Yes 81mg Take 1 tablet by mouth in the morning. [facility] cloNIDine 0.1 mg tablet 06-22 10:01: 54 Yes .1mg Take 1 tablet by mouth as needed. [facility] divalproex 125 mg EC tablet 06-22 10:01: 54 Yes 125mg Take 1 tablet by mouth in the morning and 1 tablet in the evening. [facility] divalproex 250 mg EC tablet 06-22 10:01: 54 Yes 250mg Take 1 tablet by mouth in the morning and 1 tablet in the evening. [facility] apixaban 5 mg tablet 06-22 10:01: 54 Yes 5mg Take 1 tablet by mouth in the morning and 1 tablet in the evening. [facility] ergocalcife rol, vitamin D2, (ERGOCAL ORAL) 06-22 10:01: 54 Yes 1.25mg Take 1.25 mg by mouth in the morning. [facility] fluticasone -umeclidin- vilanter (TRELEGY ELLIPTA) 200-62.5-25 mcg DsDv 06-22 10:01: 54 Yes Inhale daily. [facility] carvediloL 6.25 mg tablet 06-22 10:01: 54 Yes 6.25mg Take 1 tablet by mouth in the morning and 1 tablet in the evening. Take with meals. [facility] atorvastati n 40 mg tablet 06-22 10:01: 54 Yes 40mg Take 1 tablet by mouth at bedtime. [facility] carvediloL 6.25 mg tablet 06-22 10:01: 54 Yes 6.25mg Take 1 tablet by mouth in the morning and 1 tablet in the evening. Take with meals. [facility] atorvastati n 40 mg tablet 06-22 10:01: 54 Yes 40mg Take 1 tablet by mouth at bedtime. [facility] amLODIPine 10 mg tablet 06-22 10:01: 54 Yes 10mg Take 1 tablet by mouth in the morning. [facility] aspirin 81 mg chewable tablet 06-22 10:01: 54 Yes 81mg Take 1 tablet by mouth in the morning. [facility] cloNIDine 0.1 mg tablet 06-22 10:01: 54 Yes .1mg Take 1 tablet by mouth as needed. [facility] divalproex 125 mg EC tablet 06-22 10:01: 54 Yes 125mg Take 1 tablet by mouth in the morning and 1 tablet in the evening. [facility] divalproex 250 mg EC tablet 06-22 10:01: 54 Yes 250mg Take 1 tablet by mouth in the morning and 1 tablet in the evening. [facility] apixaban 5 mg tablet 06-22 10:01: 54 Yes 5mg Take 1 tablet by mouth in the morning and 1 tablet in the evening. [facility] ergocalcife rol, vitamin D2, (ERGOCAL ORAL) 06-22 10:01: 54 Yes 1.25mg Take 1.25 mg by mouth in the morning. [facility] fluticasone -umeclidin- vilanter (TRELEGY ELLIPTA) 200-62.5-25 mcg DsDv 06-22 10:01: 54 Yes Inhale daily. [facility] carvediloL 6.25 mg tablet 06-22 10:01: 54 Yes 6.25mg Take 1 tablet by mouth in the morning and 1 tablet in the evening. Take with meals. [facility] atorvastati n 40 mg tablet 06-22 10:01: 54 Yes 40mg Take 1 tablet by mouth at bedtime. [facility] amLODIPine 10 mg tablet 06-22 10:01: 54 Yes 10mg Take 1 tablet by mouth in the morning. [facility] aspirin 81 mg chewable tablet 06-22 10:01: 54 Yes 81mg Take 1 tablet by mouth in the morning. [facility] cloNIDine 0.1 mg tablet 06-22 10:01: 54 Yes .1mg Take 1 tablet by mouth as needed. [facility] divalproex 125 mg EC tablet 06-22 10:01: 54 Yes 125mg Take 1 tablet by mouth in the morning and 1 tablet in the evening. [facility] divalproex 250 mg EC tablet 06-22 10:01: 54 Yes 250mg Take 1 tablet by mouth in the morning and 1 tablet in the evening. [facility] apixaban 5 mg tablet 06-22 10:01: 54 Yes 5mg Take 1 tablet by mouth in the morning and 1 tablet in the evening. [facility] ergocalcife rol, vitamin D2, (ERGOCAL ORAL) 06-22 10:01: 54 Yes 1.25mg Take 1.25 mg by mouth in the morning. [facility] fluticasone -umeclidin- vilanter (TRELEGY ELLIPTA) 200-62.5-25 mcg DsDv 06-22 10:01: 54 Yes Inhale daily. [facility] Depakote 125 mg tablet,dillan yed release Take 1 tablet twice a day by oral route. Depakote 125 mg tablet,dillan yed release Take 1 tablet twice a day by oral route. 02-04 00:00: 00 No 1 BID Depakote 125 mg tablet,del ayed release Take 1 tablet twice a day by oral route. [facility] Depakote 125 mg tablet,dillan yed release Take 1 tablet twice a day by oral route. Depakote 125 mg tablet,dillan yed release Take 1 tablet twice a day by oral route. 02-04 00:00: 00 No 1 BID Depakote 125 mg tablet,del ayed release Take 1 tablet twice a day by oral route. [facility] rivastigmin e tartrate 3 mg capsule 0 01-18 00:00: 00 Yes [id number] 01 3mg Take 1 capsule by mouth every morning and evening. [facility] divalproex (DEPAKOTE) 500 mg EC tablet 01-18 00:00: 00 Yes [id number] 01 500mg Take 1 tablet by mouth at bedtime. [facility] rivastigmin e tartrate 3 mg capsule 0 01-18 00:00: 00 Yes [id number] 01 3mg Take 1 capsule by mouth every morning and evening. [facility] divalproex (DEPAKOTE) 500 mg EC tablet 01-18 00:00: 00 Yes [id number] 01 500mg Take 1 tablet by mouth at bedtime. [facility] rivastigmin e tartrate 3 mg capsule 01-18 00:00: 00 Yes [id number] 01 3mg Take 1 capsule by mouth every morning and evening. [facility] divalproex (DEPAKOTE) 500 mg EC tablet 01-18 00:00: 00 Yes [id number] 01 500mg Take 1 tablet by mouth at bedtime. [facility] rivastigmin e tartrate 3 mg capsule 01-18 00:00: 00 Yes [id number] 01 3mg Take 1 capsule by mouth every morning and evening. [facility] divalproex (DEPAKOTE) 500 mg EC tablet 0 01-18 00:00: 00 Yes [id number] 01 500mg Take 1 tablet by mouth at bedtime. [facility] rivastigmin e tartrate 3 mg capsule 0 01-18 00:00: 00 Yes [id number] 01 3mg Take 1 capsule by mouth every morning and evening. [facility] divalproex (DEPAKOTE) 500 mg EC tablet 0 01-18 00:00: 00 Yes [id number] 01 500mg Take 1 tablet by mouth at bedtime. [facility] rivastigmin e tartrate 3 mg capsule 2022-0 01-18 00:00: 00 Yes [id number] 01 3mg Take 1 capsule by mouth every morning and evening. [facility] divalproex (DEPAKOTE) 500 mg EC tablet 0 01-18 00:00: 00 Yes [id number] 01 500mg Take 1 tablet by mouth at bedtime. [facility] rivastigmin e tartrate 3 mg capsule 0 01-18 00:00: 00 Yes [id number] 01 3mg Take 1 capsule by mouth every morning and evening. [facility] divalproex (DEPAKOTE) 500 mg EC tablet 0 01-18 00:00: 00 Yes [id number] 01 500mg Take 1 tablet by mouth at bedtime. [facility] rivastigmin e tartrate 3 mg capsule 2022-0 01-18 00:00: 00 Yes [id number] 01 3mg Take 1 capsule by mouth every morning and evening. [facility] divalproex (DEPAKOTE) 500 mg EC tablet 0 01-18 00:00: 00 Yes [id number] 01 500mg Take 1 tablet by mouth at bedtime. [facility] rivastigmin e tartrate 3 mg capsule 0 01-18 00:00: 00 Yes [id number] 01 3mg Take 1 capsule by mouth every morning and evening. [facility] divalproex (DEPAKOTE) 500 mg EC tablet 0 01-18 00:00: 00 Yes [id number] 01 500mg Take 1 tablet by mouth at bedtime. [facility] rivastigmin e tartrate 3 mg capsule 2022-0 01-18 00:00: 00 Yes [id number] 01 3mg Take 1 capsule by mouth every morning and evening. [facility] divalproex (DEPAKOTE) 500 mg EC tablet 0 01-18 00:00: 00 Yes [id number] 01 500mg Take 1 tablet by mouth at bedtime. [facility] rivastigmin e tartrate 3 mg capsule 2022-0 01-18 00:00: 00 Yes [id number] 01 3mg Take 1 capsule by mouth every morning and evening. [facility] divalproex (DEPAKOTE) 500 mg EC tablet 01-18 00:00: 00 Yes [id number] 01 500mg Take 1 tablet by mouth at bedtime. [facility] rivastigmin e 1.5 mg capsule Take 1 capsule twice a day by oral route. rivastigmin e 1.5 mg capsule Take 1 capsule twice a day by oral route. 01-11 00:00: 00 No rivastigmi ne 1.5 mg capsule Take 1 capsule twice a day by oral route. [facility] rivastigmin e 1.5 mg capsule Take 1 capsule twice a day by oral route. rivastigmin e 1.5 mg capsule Take 1 capsule twice a day by oral route. 01-11 00:00: 00 No rivastigmi ne 1.5 mg capsule Take 1 capsule twice a day by oral route. [facility] rivastigmin e tartrate 1.5 mg capsule 2021-10 00:00: 00 Yes [id number] 1.5mg Take 1 capsule by mouth every morning and evening. [facility] rivastigmin e tartrate 1.5 mg capsule 2021-10 00:00: 00 Yes [id number] 1.5mg Take 1 capsule by mouth every morning and evening. [facility] rivastigmin e tartrate 1.5 mg capsule 2021-10 00:00: 00 Yes [id number] 1.5mg Take 1 capsule by mouth every morning and evening. [facility] rivastigmin e tartrate 1.5 mg capsule 2021-10 00:00: 00 Yes [id number] 1.5mg Take 1 capsule by mouth every morning and evening. [facility] rivastigmin e tartrate 1.5 mg capsule 2021-10 00:00: 00 01-18 00:00 :00 No [id number] 1.5mg Take 1 capsule by mouth every morning and evening. [facility] rivastigmin e tartrate 1.5 mg capsule 2021-10 00:00: 00 01-18 00:00 :00 No [id number] 1.5mg Take 1 capsule by mouth every morning and evening. [facility] rivastigmin e tartrate 1.5 mg capsule 2021-10 00:00: 00 01-18 00:00 :00 No [id number] 1.5mg Take 1 capsule by mouth every morning and evening. [facility] carvediloL 6.25 mg tablet 2021-10 12:49: 21 Yes 6.25mg Take 6.25 mg by mouth in the morning and 6.25 mg in the evening. Take with meals. [facility] carvediloL 6.25 mg tablet 2021-10 12:49: 21 Yes 6.25mg Take 6.25 mg by mouth in the morning and 6.25 mg in the evening. Take with meals. [facility] carvediloL 6.25 mg tablet 2021-10 12:49: 21 Yes 6.25mg Take 6.25 mg by mouth in the morning and 6.25 mg in the evening. Take with meals. [facility] carvediloL 6.25 mg tablet 2021-10 12:49: 21 Yes 6.25mg Take 6.25 mg by mouth in the morning and 6.25 mg in the evening. Take with meals. [facility] carvediloL 6.25 mg tablet 2021-10 12:49: 21 Yes 6.25mg Take 6.25 mg by mouth in the morning and 6.25 mg in the evening. Take with meals. [facility] carvediloL 6.25 mg tablet 2021-10 12:49: 21 Yes 6.25mg Take 6.25 mg by mouth in the morning and 6.25 mg in the evening. Take with meals. [facility] carvediloL 6.25 mg tablet 2021-10 12:49: 21 Yes 6.25mg Take 6.25 mg by mouth in the morning and 6.25 mg in the evening. Take with meals. [facility] carvediloL 6.25 mg tablet 2021-10 12:49: 21 Yes 6.25mg Take 6.25 mg by mouth in the morning and 6.25 mg in the evening. Take with meals. [facility] carvediloL 6.25 mg tablet 2021-10 12:49: 21 Yes 6.25mg Take 6.25 mg by mouth in the morning and 6.25 mg in the evening. Take with meals. [facility] carvediloL 6.25 mg tablet 2021-10 12:49: 21 Yes 6.25mg Take 6.25 mg by mouth in the morning and 6.25 mg in the evening. Take with meals. [facility] carvediloL 6.25 mg tablet 2021-10 12:49: 21 Yes 6.25mg Take 6.25 mg by mouth in the morning and 6.25 mg in the evening. Take with meals. [facility] carvediloL 6.25 mg tablet 2021-10 12:49: 21 Yes 6.25mg Take 6.25 mg by mouth in the morning and 6.25 mg in the evening. Take with meals. [facility] carvediloL 6.25 mg tablet 2021-10 12:49: 21 Yes 6.25mg Take 6.25 mg by mouth in the morning and 6.25 mg in the evening. Take with meals. [facility] carvediloL 6.25 mg tablet 2021-10 09:12: 49 Yes 6.25mg Take 6.25 mg by mouth in the morning and 6.25 mg in the evening. Take with meals. [facility] atorvastati n 40 mg tablet 2021-10 09:12: 49 Yes 40mg Take 40 mg by mouth at bedtime. [facility] carvediloL 6.25 mg tablet 2021-10 09:12: 49 Yes 6.25mg Take 6.25 mg by mouth in the morning and 6.25 mg in the evening. Take with meals. [facility] atorvastati n 40 mg tablet 2021-10 09:12: 49 Yes 40mg Take 40 mg by mouth at bedtime. [facility] carvediloL 6.25 mg tablet 2021-10 09:12: 49 Yes 6.25mg Take 6.25 mg by mouth in the morning and 6.25 mg in the evening. Take with meals. [facility] atorvastati n 40 mg tablet 2021-10 09:12: 49 Yes 40mg Take 40 mg by mouth at bedtime. [facility] carvediloL 6.25 mg tablet 2021-10 09:12: 49 Yes 6.25mg Take 6.25 mg by mouth in the morning and 6.25 mg in the evening. Take with meals. [facility] atorvastati n 40 mg tablet 2021-10 09:12: 49 Yes 40mg Take 40 mg by mouth at bedtime. [facility] carvediloL 6.25 mg tablet 2021-10 09:12: 49 Yes 6.25mg Take 6.25 mg by mouth in the morning and 6.25 mg in the evening. Take with meals. [facility] atorvastati n 40 mg tablet 2021-10 09:12: 49 Yes 40mg Take 40 mg by mouth at bedtime. [facility] carvediloL 6.25 mg tablet 2021-10 09:12: 49 Yes 6.25mg Take 6.25 mg by mouth in the morning and 6.25 mg in the evening. Take with meals. [facility] atorvastati n 40 mg tablet 2021-10 09:12: 49 Yes 40mg Take 40 mg by mouth at bedtime. [facility] atorvastati n 40 mg tablet 2021-10 09:12: 49 Yes 40mg Take 40 mg by mouth at bedtime. [facility] atorvastati n 40 mg tablet 2021-10 09:12: 49 Yes 40mg Take 40 mg by mouth at bedtime. [facility] atorvastati n 40 mg tablet 2021-10 09:12: 49 Yes 40mg Take 40 mg by mouth at bedtime. [facility] atorvastati n 40 mg tablet 2021-10 09:12: 49 Yes 40mg Take 40 mg by mouth at bedtime. [facility] atorvastati n 40 mg tablet 2021-10 09:12: 49 Yes 40mg Take 40 mg by mouth at bedtime. [facility] atorvastati n 40 mg tablet 2021-10 09:12: 49 Yes 40mg Take 40 mg by mouth at bedtime. [facility] atorvastati n 40 mg tablet 2021-10 09:12: 49 Yes 40mg Take 40 mg by mouth at bedtime. [facility] atorvastati n 40 mg tablet 2021-10 09:12: 49 Yes 40mg Take 40 mg by mouth at bedtime. [facility] atorvastati n 40 mg tablet 2021-10 09:12: 49 Yes 40mg Take 40 mg by mouth at bedtime. [facility] atorvastati n 40 mg tablet 2021-10 09:12: 49 Yes 40mg Take 40 mg by mouth at bedtime. [facility] atorvastati n 40 mg tablet 2021-10 09:12: 49 Yes 40mg Take 40 mg by mouth at bedtime. [facility] atorvastati n 40 mg tablet 2021-10 09:12: 49 Yes 40mg Take 40 mg by mouth at bedtime. [facility] atorvastati n 40 mg tablet 2021-10 09:12: 49 Yes 40mg Take 40 mg by mouth at bedtime. [facility] carvediloL (COREG) 6.25 mg tablet 05-19 12:55: 25 Yes 6.25mg Take 6.25 mg by mouth in the morning and 6.25 mg in the evening. Take with meals. [facility] atorvastati n 40 mg tablet 05-19 12:55: 25 Yes 40mg Take 40 mg by mouth at bedtime. [facility] carvediloL (COREG) 6.25 mg tablet 05-19 12:55: 25 Yes 6.25mg Take 6.25 mg by mouth in the morning and 6.25 mg in the evening. Take with meals. [facility] atorvastati n 40 mg tablet 05-19 12:55: 25 Yes 40mg Take 40 mg by mouth at bedtime. [facility] carvediloL (COREG) 6.25 mg tablet 05-19 12:55: 25 Yes 6.25mg Take 6.25 mg by mouth in the morning and 6.25 mg in the evening. Take with meals. [facility] atorvastati n 40 mg tablet 05-19 12:55: 25 Yes 40mg Take 40 mg by mouth at bedtime. [facility] carvediloL (COREG) 6.25 mg tablet 05-19 12:55: 25 Yes 6.25mg Take 6.25 mg by mouth in the morning and 6.25 mg in the evening. Take with meals. [facility] atorvastati n 40 mg tablet 05-19 12:55: 25 Yes 40mg Take 40 mg by mouth at bedtime. [facility] carvediloL (COREG) 6.25 mg tablet 05-19 12:55: 25 Yes 6.25mg Take 6.25 mg by mouth in the morning and 6.25 mg in the evening. Take with meals. [facility] atorvastati n 40 mg tablet 05-19 12:55: 25 Yes 40mg Take 40 mg by mouth at bedtime. [facility] carvediloL (COREG) 6.25 mg tablet 05-19 12:55: 25 Yes 6.25mg Take 6.25 mg by mouth in the morning and 6.25 mg in the evening. Take with meals. [facility] atorvastati n 40 mg tablet 05-19 12:55: 25 Yes 40mg Take 40 mg by mouth at bedtime. [facility] carvediloL (COREG) 6.25 mg tablet 05-19 12:55: 25 Yes 6.25mg Take 6.25 mg by mouth in the morning and 6.25 mg in the evening. Take with meals. [facility] atorvastati n 40 mg tablet 05-19 12:55: 25 Yes 40mg Take 40 mg by mouth at bedtime. [facility] carvediloL (COREG) 6.25 mg tablet 05-19 12:55: 25 Yes 6.25mg Take 6.25 mg by mouth in the morning and 6.25 mg in the evening. Take with meals. [facility] atorvastati n 40 mg tablet 05-19 12:55: 25 Yes 40mg Take 40 mg by mouth at bedtime. [facility] carvediloL (COREG) 6.25 mg tablet 05-19 12:55: 25 Yes 6.25mg Take 6.25 mg by mouth in the morning and 6.25 mg in the evening. Take with meals. [facility] atorvastati n 40 mg tablet 05-19 12:55: 25 Yes 40mg Take 40 mg by mouth at bedtime. [facility] carvediloL (COREG) 6.25 mg tablet 05-19 12:55: 25 Yes 6.25mg Take 6.25 mg by mouth in the morning and 6.25 mg in the evening. Take with meals. [facility] atorvastati n 40 mg tablet 05-19 12:55: 25 Yes 40mg Take 40 mg by mouth at bedtime. [facility] carvediloL (COREG) 6.25 mg tablet 05-19 12:55: 25 Yes 6.25mg Take 6.25 mg by mouth in the morning and 6.25 mg in the evening. Take with meals. [facility] atorvastati n 40 mg tablet 05-19 12:55: 25 Yes 40mg Take 40 mg by mouth at bedtime. [facility] carvediloL (COREG) 6.25 mg tablet 05-19 12:55: 25 Yes 6.25mg Take 6.25 mg by mouth in the morning and 6.25 mg in the evening. Take with meals. [facility] atorvastati n 40 mg tablet 05-19 12:55: 25 Yes 40mg Take 40 mg by mouth at bedtime. [facility] carvediloL (COREG) 6.25 mg tablet 05-19 12:55: 25 Yes 6.25mg Take 6.25 mg by mouth in the morning and 6.25 mg in the evening. Take with meals. [facility] atorvastati n 40 mg tablet 05-19 12:55: 25 Yes 40mg Take 40 mg by mouth at bedtime. [facility] NaCl 0.9% (NS) bolus infusion 1,000 mL 05-02 18:15: 00 05-02 19:04 :00 No 1000mL at 999 mL/hr, 1,000 mL, IV Infusion, ONCE, 1 dose, On 05/02/22 at 1315, ARUNA [facility] No known medications 05-02 15:35: 06 No No known medication s [facility] No known medications 05-02 15:35: 06 No No known medication s [facility] ketorolac (TORADOL) tablet 10 mg 05-01 15:00: 00 05-01 15:30 :00 No 10mg 10 mg, Oral, ONCE, 1 dose, On Wed05/01/22 at 1000, Routine [facility] ketorolac (TORADOL) tablet 10 mg 05-01 14:56: 04 Yes 10mg 10 mg, Oral, Q6HPRN, Starting on Wed05/01/22 at 0956, Until Discontinu ed, Routine, Pain (scale 1-3), Pain (scale 4-6) [facility] atorvastati n (LIPITOR) tablet 40 mg 05-01 02:00: 00 Yes 40mg 40 mg, Oral, QHS, First dose on Brie 04/30/22 at 2100, Until Discontinu ed, Routine [facility] heparin (porcine) injection 5,000 Units 05-01 01:00: 00 Yes 5000U 5,000 Units, Subcutaneo us, Q12H, First dose on Brie 04/30/22 at 2000, Until Discontinu ed, Routine [facility] atorvastati n 40 mg tablet 05-01 00:00: 00 05-16 04:59 :00 No [id number] 40mg Take 1 tablet by mouth at bedtime for 14 days. [facility] carvediloL 6.25 mg tablet 05-01 00:00: 00 05-16 04:59 :00 No [id number] 6.25mg Take 1 tablet by mouth 2 (two) times daily with meals for 14 days. [facility] atorvastati n 40 mg tablet 05-01 00:00: 00 05-16 04:59 :00 No [id number] 40mg Take 1 tablet by mouth at bedtime for 14 days. [facility] carvediloL 6.25 mg tablet 05-01 00:00: 00 05-16 04:59 :00 No [id number] 6.25mg Take 1 tablet by mouth 2 (two) times daily with meals for 14 days. [facility] atorvastati n 40 mg tablet 05-01 00:00: 00 05-16 04:59 :00 No [id number] 40mg Take 1 tablet by mouth at bedtime for 14 days. [facility] carvediloL 6.25 mg tablet 05-01 00:00: 00 05-16 04:59 :00 No [id number] 6.25mg Take 1 tablet by mouth 2 (two) times daily with meals for 14 days. [facility] atorvastati n 40 mg tablet 05-01 00:00: 00 05-16 04:59 :00 No [id number] 40mg Take 1 tablet by mouth at bedtime for 14 days. [facility] carvediloL 6.25 mg tablet 05-01 00:00: 00 05-16 04:59 :00 No [id number] 6.25mg Take 1 tablet by mouth 2 (two) times daily with meals for 14 days. [facility] atorvastati n 40 mg tablet 05-01 00:00: 00 05-16 04:59 :00 No [id number] 40mg Take 1 tablet by mouth at bedtime for 14 days. [facility] carvediloL 6.25 mg tablet 05-01 00:00: 00 05-16 04:59 :00 No [id number] 6.25mg Take 1 tablet by mouth 2 (two) times daily with meals for 14 days. [facility] atorvastati n 40 mg tablet 05-01 00:00: 00 05-16 04:59 :00 No [id number] 40mg Take 1 tablet by mouth at bedtime for 14 days. [facility] carvediloL 6.25 mg tablet 05-01 00:00: 00 05-16 04:59 :00 No [id number] 6.25mg Take 1 tablet by mouth 2 (two) times daily with meals for 14 days. [facility] naproxen 250 mg tablet 05-01 00:00: 00 05-09 04:59 :00 No [id number] 250mg Take 1 tablet by mouth 2 (two) times daily as needed for Pain (scale 4-6) for up to 7 days. [facility] naproxen 250 mg tablet 05-01 00:00: 00 05-09 04:59 :00 No [id number] 250mg Take 1 tablet by mouth 2 (two) times daily as needed for Pain (scale 4-6) for up to 7 days. [facility] naproxen 250 mg tablet 05-01 00:00: 00 05-09 04:59 :00 No [id number] 250mg Take 1 tablet by mouth 2 (two) times daily as needed for Pain (scale 4-6) for up to 7 days. [facility] naproxen 250 mg tablet 05-01 00:00: 00 05-09 04:59 :00 No [id number] 250mg Take 1 tablet by mouth 2 (two) times daily as needed for Pain (scale 4-6) for up to 7 days. [facility] naproxen 250 mg tablet 05-01 00:00: 00 05-09 04:59 :00 No [id number] 250mg Take 1 tablet by mouth 2 (two) times daily as needed for Pain (scale 4-6) for up to 7 days. [facility] D5W IV infusion 1,000 mL 04-30 15:15: 00 04-30 14:13 :00 No 1000mL at 75 mL/hr, IV Infusion, ONCE, 1 dose, On Brie 04/30/22 at 1015, Routine [facility] NaCl 0.9% (NS) bolus infusion 1,000 mL 04-30 04:15: 00 04-30 12:00 :13 No 1000mL at 100 mL/hr, 1,000 mL, IV Piggyback, CONTINUOUS , Starting on Wed04/29/22 at 2315, Until Wed04/30/22 at 0700, ARUNA [facility] carvediloL (COREG) tablet 6.25 mg 04-30 03:30: 00 Yes 6.25mg 6.25 mg, Oral, BID MEALS, First dose on Wed04/29/22 at 2230, Until Discontinu ed, Routine [facility] HEPARIN SODIUM (PORCINE) 1,000 UNIT/ML BOLUS ACS ORDER SET 04-30 03:30: 00 04-30 05:27 :00 No 60U/kg 3,810 Units (60 Units/kg ?63.5 kg), IV Push, ONCE, 1 dose, On Wed04/29/22 at 2230, ARUNA [facility] heparin 25,000 Units/250 mL (Premixed Bag) in [...] Rang e, Dosing and Testing: &nbs p;FOR [facility], [facility] AND [facility] ONLY &nbs p; - aPTT < [...] INITIAL BOLUS OR INITIAL INFUSION RATE.
[facility] acetaminoph en (TYLENOL) tablet 650 mg 04-30 01:46: 25 Yes 650mg 650 mg, Oral, Q6HPRN, Starting on Wed04/29/22 at 2046, Until Discontinu ed, Routine, Pain (scale 1-3) [facility] NaCl 0.9% (NS) bolus infusion 1,000 mL 04-29 22:48: 00 04-30 02:01 :00 No 1000mL at 999 mL/hr, 1,000 mL, IV Piggyback, ONCE, 1 dose, On Wed04/29/22 at 1800, STAT [facility] diltiazem (CARDIZEM) tablet 30 mg 04-29 22:46: 00 04-29 23:18 :00 No 30mg 30 mg, Oral, ONCE, 1 dose, On Wed04/29/22 at 1800, ARUNA [facility] diltiazem (CARDIZEM IV) injection 10 mg 04-29 22:45: 00 04-29 23:59 :00 No 10mg 10 mg, Slow IV Push, ONCE, 1 dose, On Wed04/29/22 at 1800, STAT
Fa culty member approving Restricted medication : DALTON CHINO [facility] aspirin chewable tablet 324 mg 04-29 22:30: 00 04-29 23:18 :00 No 324mg 324 mg, Oral, ONCE, 1 dose, On Wed04/29/22 at 1730, STAT [facility] lisinopril- hydrochloro thiazide (PRINZIDE,Z ESTORETIC) 20-25 mg per tablet 04-29 20:46: 48 04-29 00:00 :00 No 1{tbl} Take 1 Tab by mouth daily. [facility] amLODIPine (NORVASC) 5 mg tablet 04-29 20:46: 48 04-29 00:00 :00 No 5mg Take 5 mg by mouth daily. [facility] atorvastati n (LIPITOR) 20 mg tablet 04-29 20:46: 48 04-29 00:00 :00 No 20mg Take 20 mg by mouth at bedtime. [facility] clopidogrel (PLAVIX) 75 mg tablet 04-29 20:46: 48 04-29 00:00 :00 No 75mg Take 75 mg by mouth daily. [facility] acetaminoph en (TYLENOL EXTRA STRENGTH) 500 mg tablet 04-29 20:46: 48 04-29 00:00 :00 No 1000mg Take 1,000 mg by mouth every 6 (six) hours as needed for Pain. [facility] cephALEXin (KEFLEX) 500 mg capsule 04-29 20:46: 48 04-29 00:00 :00 No 500mg Take 500 mg by mouth 4 (four) times daily. [facility] NaCl 0.9% (NS) bolus infusion 1,000 mL 04-29 00:45: 00 04-29 02:00 :00 No 1000mL at 999 mL/hr, 1,000 mL, IV Infusion, ONCE, 1 dose, On Wed04/28/22 at 1945, STAT [facility] aspirin tablet 325 mg 04-28 23:45: 00 04-29 00:35 :00 No 325mg 325 mg, Oral, ONCE, 1 dose, On Wed04/28/22 at 1845, STAT [facility] diltiazem (CARDIZEM IV) injection 20 mg 04-28 23:45: 00 04-28 23:37 :00 No 20mg 20 mg, IV Push, ONCE, 1 dose, On Wed04/28/22 at 1845, STAT
Fa culty member approving Restricted medication : BERNARDO RODRÍGUEZ [facility] lisinopril- hydrochloro thiazide (PRINZIDE,Z ESTORETIC) 20-25 mg per tablet 06-28 15:32: 57 Yes 1{tbl} Take 1 Tab by mouth daily. [facility] amLODIPine (NORVASC) 5 mg tablet 06-28 15:32: 57 Yes 5mg Take 5 mg by mouth daily. [facility] atorvastati n (LIPITOR) 20 mg tablet 06-28 15:32: 57 Yes 20mg Take 20 mg by mouth at bedtime. [facility] clopidogrel (PLAVIX) 75 mg tablet 06-28 15:32: 57 Yes 75mg Take 75 mg by mouth daily. [facility] acetaminoph en (TYLENOL EXTRA STRENGTH) 500 mg tablet 06-28 15:32: 57 Yes 1000mg Take 1,000 mg by mouth every 6 (six) hours as needed for Pain. [facility] cephALEXin (KEFLEX) 500 mg capsule 06-28 15:32: 57 Yes 500mg Take 500 mg by mouth 4 (four) times daily. [facility] acetaminoph en 300 mg-codeine 30 mg [...] oral route as needed for 10 days. [facility] aspirin 81 mg tablet,dillan yed release Take 1 tablet every day by oral route. aspirin 81 mg tablet,dillan yed release Take 1 tablet every day by oral route. No 1 Q1D aspirin 81 mg tablet,del ayed release Take 1 tablet every day by oral route. [facility] atorvastati n 40 mg tablet Take 1 tablet every day by oral route. atorvastati n 40 mg tablet Take 1 tablet every day by oral route. No 1 Q1D atorvastat in 40 mg tablet Take 1 tablet every day by oral route. [facility] carvedilol 6.25 mg tablet Take 1 tablet twice a day by oral route. carvedilol 6.25 mg tablet Take 1 tablet twice a day by oral route. No 1 BID carvedilol 6.25 mg tablet Take 1 tablet twice a day by oral route. [facility] cephalexin 500 mg tablet Take 1 tablet every 12 hours by oral route. cephalexin 500 mg tablet Take 1 tablet every 12 hours by oral route. No 1 Q12H cephalexin 500 mg tablet Take 1 tablet every 12 hours by oral route. [facility] ipratropium 0.5 mg-albutero l 2.5 [...] 1 tablet every day by oral route. [facility] atorvastati n 40 mg tablet Take 1 tablet every day by oral route. atorvastati n 40 mg tablet Take 1 tablet every day by oral route. No 1 Q1D atorvastat in 40 mg tablet Take 1 tablet every day by oral route. [facility] carvedilol 6.25 mg tablet Take 1 tablet twice a day by oral route. carvedilol 6.25 mg tablet Take 1 tablet twice a day by oral route. No 1 BID carvedilol 6.25 mg tablet Take 1 tablet twice a day by oral route. [facility] ipratropium 0.5 mg-albutero l 2.5 [...] day by oral route for 30 days. [facility] aspirin 81 mg tablet,dillan yed release Take 1 tablet every day by oral route. aspirin 81 mg tablet,dillan yed release Take 1 tablet every day by oral route. No 1 Q1D aspirin 81 mg tablet,del ayed release Take 1 tablet every day by oral route. [facility] atorvastati n 40 mg tablet Take 1 tablet every day by oral route. atorvastati n 40 mg tablet Take 1 tablet every day by oral route. No 1 Q1D atorvastat in 40 mg tablet Take 1 tablet every day by oral route. [facility] carvedilol 6.25 mg tablet Take 1 tablet twice a day by oral route. carvedilol 6.25 mg tablet Take 1 tablet twice a day by oral route. No 1 BID carvedilol 6.25 mg tablet Take 1 tablet twice a day by oral route. [facility] ipratropium 0.5 mg-albutero l 2.5 [...] 6 hours by inhalation route as needed. [facility] rivastigmin e 1.5 mg capsule Take 1 capsule twice a day by oral route. rivastigmin e 1.5 mg capsule Take 1 capsule twice a day by oral route. No 1capsul e(s) BID rivastigmi ne 1.5 mg capsule Take 1 capsule twice a day by oral route. [facility] acetaminoph en 300 mg-codeine 30 [...] oral route as needed for 10 days. [facility] apixaban 5 mg tablet Take 1 tablet twice a day by oral route for 30 days. apixaban 5 mg tablet Take 1 tablet twice a day by oral route for 30 days. No 1 BID apixaban 5 mg tablet Take 1 tablet twice a day by oral route for 30 days. [facility] aspirin 81 mg tablet,dillan yed release Take 1 tablet every day by oral route. aspirin 81 mg tablet,dillan yed release Take 1 tablet every day by oral route. No 1 Q1D aspirin 81 mg tablet,del ayed release Take 1 tablet every day by oral route. [facility] atorvastati n 40 mg tablet Take 1 tablet every day by oral route. atorvastati n 40 mg tablet Take 1 tablet every day by oral route. No 1 Q1D atorvastat in 40 mg tablet Take 1 tablet every day by oral route. [facility] carvedilol 6.25 mg tablet Take 1 tablet twice a day by oral route. carvedilol 6.25 mg tablet Take 1 tablet twice a day by oral route. No 1 BID carvedilol 6.25 mg tablet Take 1 tablet twice a day by oral route. [facility] ipratropium 0.5 mg-albutero l 2.5 [...] 6 hours by inhalation route as needed. [facility] rivastigmin e 1.5 mg capsule Take 1 capsule twice a day by oral route. rivastigmin e 1.5 mg capsule Take 1 capsule twice a day by oral route. No 1capsul e(s) BID rivastigmi ne 1.5 mg capsule Take 1 capsule twice a day by oral route. [facility] acetaminoph en 300 mg-codeine 30 [...] day by oral route for 30 days. [facility] aspirin 81 mg tablet,dillan yed release Take 1 tablet every day by oral route. aspirin 81 mg tablet,dillan yed release Take 1 tablet every day by oral route. No 1 Q1D aspirin 81 mg tablet,del ayed release Take 1 tablet every day by oral route. [facility] atorvastati n 40 mg tablet Take 1 tablet every day by oral route. atorvastati n 40 mg tablet Take 1 tablet every day by oral route. No 1 Q1D atorvastat in 40 mg tablet Take 1 tablet every day by oral route. [facility] carvedilol 6.25 mg tablet Take 1 tablet twice a day by oral route. carvedilol 6.25 mg tablet Take 1 tablet twice a day by oral route. No 1 BID carvedilol 6.25 mg tablet Take 1 tablet twice a day by oral route. [facility] diclofenac 1 % topical [...] TOPICAL ROUTE 2 TIMES PER DAY (KNEES) [facility] ipratropium 0.5 mg-albutero l 2.5 [...] 6 hours by inhalation route as needed. [facility] rivastigmin e 1.5 mg capsule Take 1 capsule twice a day by oral route. rivastigmin e 1.5 mg capsule Take 1 capsule twice a day by oral route. No 1capsul e(s) BID rivastigmi ne 1.5 mg capsule Take 1 capsule twice a day by oral route. [facility] acetaminoph en 300 mg-codeine [...] oral route as needed for 10 days. [facility] aspirin 81 mg tablet,dillan yed release Take 1 tablet every day by oral route. aspirin 81 mg tablet,dillan yed release Take 1 tablet every day by oral route. No 1 Q1D aspirin 81 mg tablet,del ayed release Take 1 tablet every day by oral route. [facility] atorvastati n 40 mg tablet Take 1 tablet every day by oral route. atorvastati n 40 mg tablet Take 1 tablet every day by oral route. No 1 Q1D atorvastat in 40 mg tablet Take 1 tablet every day by oral route. [facility] carvedilol 6.25 mg tablet Take 1 tablet twice a day by oral route. carvedilol 6.25 mg tablet Take 1 tablet twice a day by oral route. No carvedilol 6.25 mg tablet Take 1 tablet twice a day by oral route. [facility] cholecalcif marlee (vitamin D3) [...] TOPICAL ROUTE 2 TIMES PER DAY (KNEES) [facility] Eliquis 5 mg tablet Take [...] 6 hours by inhalation route as needed. [facility] rivastigmin e 1.5 mg capsule Take 1 capsule twice a day by oral route. rivastigmin e 1.5 mg capsule Take 1 capsule twice a day by oral route. No 1capsul e(s) BID rivastigmi ne 1.5 mg capsule Take 1 capsule twice a day by oral route. [facility] acetaminoph en 300 mg-codeine 30 [...] oral route as needed for 10 days. [facility] aspirin 81 mg tablet,dillan yed release Take 1 tablet every day by oral route. aspirin 81 mg tablet,dillan yed release Take 1 tablet every day by oral route. No 1 Q1D aspirin 81 mg tablet,del ayed release Take 1 tablet every day by oral route. [facility] atorvastati n 40 mg [...] day by oral route for 30 days. [facility] ipratropium 0.5 mg-albutero l 2.5 [...] 6 hours by inhalation route as needed. [facility] rivastigmin e 1.5 mg capsule Take 1 capsule twice a day by oral route. rivastigmin e 1.5 mg capsule Take 1 capsule twice a day by oral route. No rivastigmi ne 1.5 mg capsule Take 1 capsule twice a day by oral route. [facility] rivastigmin e 3 mg capsule rivastigmin e 3 mg capsule No rivastigmi ne 3 mg capsule [facility] acetaminoph en 300 mg-codeine [...] oral route as needed for 10 days. [facility] atorvastati n 40 mg tablet Take 1 tablet every day by oral route. atorvastati n 40 mg tablet Take 1 tablet every day by oral route. No 1 Q1D atorvastat in 40 mg tablet Take 1 tablet every day by oral route. [facility] acetaminoph en 300 mg-codeine [...] oral route as needed for 10 days. [facility] carvedilol 6.25 mg tablet Take 1 tablet twice a day by oral route. carvedilol 6.25 mg tablet Take 1 tablet twice a day by oral route. No 1 BID carvedilol 6.25 mg tablet Take 1 tablet twice a day by oral route. [facility] aspirin 81 mg tablet,dillan yed release Take 1 tablet every day by oral route. aspirin 81 mg tablet,dillan yed release Take 1 tablet every day by oral route. No 1 Q1D aspirin 81 mg tablet,del ayed release Take 1 tablet every day by oral route. [facility] atorvastati n 40 mg tablet Take 1 tablet every day by oral route. atorvastati n 40 mg tablet Take 1 tablet every day by oral route. No atorvastat in 40 mg tablet Take 1 tablet every day by oral route. [facility] carvedilol 6.25 mg tablet Take 1 tablet twice a day by oral route. carvedilol 6.25 mg tablet Take 1 tablet twice a day by oral route. No carvedilol 6.25 mg tablet Take 1 tablet twice a day by oral route. [facility] cholecalcif marlee (vitamin D3) 1,250 [...] week by oral route for 90 days. [facility] Depakote 250 mg tablet,dillan yed release Take 1 tablet twice a day by oral route. Depakote 250 mg tablet,dillan yed release Take 1 tablet twice a day by oral route. No 1 BID Depakote 250 mg tablet,del ayed release Take 1 tablet twice a day by oral route. [facility] diclofenac 1 % topical [...] TOPICAL ROUTE 2 TIMES PER DAY (KNEES) [facility] Eliquis 5 mg tablet Take 1 tablet twice a day by oral route for 30 days. Eliquis 5 mg tablet Take 1 tablet twice a day by oral route for 30 days. No Eliquis 5 mg tablet Take 1 tablet twice a day by oral route for 30 days. [facility] ipratropium 0.5 mg-albutero l 2.5 [...] 6 hours by inhalation route as needed. [facility] acetaminoph en 300 mg-codeine 30 [...] oral route as needed for 10 days. [facility] aspirin 81 mg tablet,idllan yed release Take 1 tablet every day by oral route. aspirin 81 mg tablet,dillan yed release Take 1 tablet every day by oral route. No 1 Q1D aspirin 81 mg tablet,del ayed release Take 1 tablet every day by oral route. [facility] atorvastati n 40 mg [...] day by oral route for 30 days. [facility] ergocalcife rol (vitamin D2) 1,250 [...] day by inhalation route for 30 days. [facility] amlodipine 10 mg tablet Take 1 tablet every day by oral route. amlodipine 10 mg tablet Take 1 tablet every day by oral route. No amlodipine 10 mg tablet Take 1 tablet every day by oral route. [facility] aspirin 81 mg tablet,dillan yed release Take 1 tablet every day by oral route. aspirin 81 mg tablet,dillan yed release Take 1 tablet every day by oral route. No 1 Q1D aspirin 81 mg tablet,del ayed release Take 1 tablet every day by oral route. [facility] atorvastati n 40 mg tablet Take 1 tablet every day by oral route. atorvastati n 40 mg tablet Take 1 tablet every day by oral route. No atorvastat in 40 mg tablet Take 1 tablet every day by oral route. [facility] carvedilol 6.25 mg tablet Take 1 tablet twice a day by oral route. carvedilol 6.25 mg tablet Take 1 tablet twice a day by oral route. No carvedilol 6.25 mg tablet Take 1 tablet twice a day by oral route. [facility] clonidine HCl 0.1 mg tablet Take 1 tablet every day by oral route as needed. clonidine HCl 0.1 mg tablet Take 1 tablet every day by oral route as needed. No 1 Q1D clonidine HCl 0.1 mg tablet Take 1 tablet every day by oral route as needed. [facility] diclofenac 1 % topical [...] TOPICAL ROUTE 2 TIMES PER DAY (KNEES) [facility] divalproex 250 mg tablet,dillan yed release divalproex 250 mg tablet,dillan yed release No divalproex 250 mg tablet,del ayed release [facility] Eliquis 5 mg tablet Take 1 tablet twice a day by oral route for 30 days. Eliquis 5 mg tablet Take 1 tablet twice a day by oral route for 30 days. No Eliquis 5 mg tablet Take 1 tablet twice a day by oral route for 30 days. [facility] ergocalcife rol (vitamin D2) [...] ER 10 mEq tablet,ext ended release(pa rt/cryst) [facility] Trelegy Ellipta 200 mcg-62.5 mcg-25 mcg powder for inhalation Inhale 1 puff every day by inhalation route for 30 days. Trelegy Ellipta 200 mcg-62.5 mcg-25 mcg powder for inhalation Inhale 1 puff every day by inhalation route for 30 days. No Trelegy Ellipta 200 mcg-62.5 mcg-25 mcg powder for inhalation Inhale 1 puff every day by inhalation route for 30 days. [facility] amlodipine 10 mg tablet Take 1 tablet every day by oral route. amlodipine 10 mg tablet Take 1 tablet every day by oral route. No amlodipine 10 mg tablet Take 1 tablet every day by oral route. [facility] aspirin 81 mg tablet,dillan yed release Take 1 tablet every day by oral route. aspirin 81 mg tablet,dillan yed release Take 1 tablet every day by oral route. No 1 Q1D aspirin 81 mg tablet,del ayed release Take 1 tablet every day by oral route. [facility] atorvastati n 40 mg tablet Take 1 tablet every day by oral route. atorvastati n 40 mg tablet Take 1 tablet every day by oral route. No atorvastat in 40 mg tablet Take 1 tablet every day by oral route. [facility] carvedilol 6.25 mg tablet Take 1 tablet twice a day by oral route. carvedilol 6.25 mg tablet Take 1 tablet twice a day by oral route. No carvedilol 6.25 mg tablet Take 1 tablet twice a day by oral route. [facility] clonidine HCl 0.1 mg tablet Take 1 tablet every day by oral route as needed. clonidine HCl 0.1 mg tablet Take 1 tablet every day by oral route as needed. No 1 Q1D clonidine HCl 0.1 mg tablet Take 1 tablet every day by oral route as needed. [facility] diclofenac 1 % topical [...] TOPICAL ROUTE 2 TIMES PER DAY (KNEES) [facility] divalproex 250 mg tablet,dillan yed release divalproex 250 mg tablet,dillan yed release No divalproex 250 mg tablet,del ayed release [facility] Eliquis 5 mg tablet Take 1 tablet twice a day by oral route for 30 days. Eliquis 5 mg tablet Take 1 tablet twice a day by oral route for 30 days. No Eliquis 5 mg tablet Take 1 tablet twice a day by oral route for 30 days. [facility] ergocalcife rol (vitamin D2) [...] month by oral route for 28 days. [facility] ipratropium 0.5 mg-albutero l 3 mg (2.5 [...] 1 tablet every day by oral route. [facility] atorvastati n 40 mg tablet Take 1 tablet every day by oral route. atorvastati n 40 mg tablet Take 1 tablet every day by oral route. No 1 Q1D atorvastat in 40 mg tablet Take 1 tablet every day by oral route. [facility] carvedilol 6.25 mg tablet Take 1 tablet twice a day by oral route. carvedilol 6.25 mg tablet Take 1 tablet twice a day by oral route. No 1 BID carvedilol 6.25 mg tablet Take 1 tablet twice a day by oral route. [facility] cephalexin 500 mg tablet Take 1 tablet every 12 hours by oral route. cephalexin 500 mg tablet Take 1 tablet every 12 hours by oral route. No 1 Q12H cephalexin 500 mg tablet Take 1 tablet every 12 hours by oral route. [facility] ipratropium 0.5 mg-albutero l [...] 6 hours by inhalation route as needed. [facility] Immunizations Ordered Immunization Name Filled Immunization Name Date Status Comments Source pneumococcal polysaccharide PPV23 pneumococcal polysaccharide PPV23 2022-09-24 00:00:00 Completed [facility] influenza, unspecified formulation influenza, unspecified formulation 2022-09-24 00:00:00 Completed [facility] pneumococcal polysaccharide PPV23 pneumococcal polysaccharide PPV23 2022-09-24 00:00:00 Completed [facility] influenza, unspecified formulation influenza, unspecified formulation 2022-09-24 00:00:00 Completed [facility] pneumococcal polysaccharide PPV23 pneumococcal polysaccharide PPV23 2022-09-24 00:00:00 Completed [facility] influenza, unspecified formulation influenza, unspecified formulation 2022-09-24 00:00:00 Completed [facility] pneumococcal polysaccharide PPV23 pneumococcal polysaccharide PPV23 2022-09-24 [...] SARS-COV-2 COVID-19 PFIZER VACCINE 2020-12-29 00:00:00 Completed [facility] SARS-COV-2 COVID-19 PFIZER VACCINE 2020-12-29 00:00:00 Completed [facility] SARS-COV-2 COVID-19 PFIZER VACCINE 2020-12-29 00:00:00 Completed [facility] SARS-COV-2 COVID-19 PFIZER VACCINE 2020-12-29 00:00:00 Completed [facility] SARS-COV-2 COVID-19 PFIZER VACCINE 2020-12-29 00:00:00 Completed [facility] SARS-COV-2 COVID-19 PFIZER VACCINE 2020-12-29 00:00:00 Completed [facility] SARS-COV-2 COVID-19 PFIZER VACCINE 2020-12-29 00:00:00 Completed [facility] SARS-COV-2 COVID-19 PFIZER VACCINE 2020-12-29 00:00:00 Completed [facility] SARS-COV-2 COVID-19 PFIZER VACCINE 2020-12-29 00:00:00 Completed [facility] SARS-COV-2 COVID-19 PFIZER VACCINE 2020-12-29 00:00:00 Completed [facility] SARS-COV-2 COVID-19 PFIZER VACCINE 2020-12-29 00:00:00 Completed [facility] SARS-COV-2 COVID-19 PFIZER VACCINE 2020-12-29 00:00:00 Completed [facility] SARS-COV-2 COVID-19 PFIZER VACCINE 2020-12-29 00:00:00 Completed [facility] SARS-COV-2 COVID-19 PFIZER VACCINE 2020-12-29 00:00:00 Completed [facility] SARS-COV-2 COVID-19 PFIZER VACCINE 2020-12-29 00:00:00 Completed [facility] SARS-COV-2 COVID-19 PFIZER VACCINE 2020-12-29 00:00:00 Completed [facility] SARS-COV-2 COVID-19 PFIZER VACCINE 2020-12-29 00:00:00 Completed [facility] SARS-COV-2 COVID-19 PFIZER VACCINE 2020-12-29 00:00:00 Completed [facility] SARS-COV-2 COVID-19 PFIZER VACCINE 2020-12-29 00:00:00 Completed [facility] SARS-COV-2 COVID-19 PFIZER VACCINE 2020-12-29 00:00:00 Completed [facility] SARS-COV-2 COVID-19 PFIZER VACCINE 2020-12-29 00:00:00 Completed [facility] SARS-COV-2 COVID-19 PFIZER VACCINE 2020-12-29 00:00:00 Completed [facility] SARS-COV-2 COVID-19 PFIZER VACCINE 2020-12-29 00:00:00 Completed [facility] SARS-COV-2 COVID-19 PFIZER VACCINE 2020-12-29 00:00:00 Completed [facility] SARS-COV-2 COVID-19 PFIZER VACCINE 2020-12-29 00:00:00 Completed [facility] SARS-COV-2 COVID-19 PFIZER VACCINE 2020-12-29 00:00:00 Completed [facility] SARS-COV-2 COVID-19 PFIZER VACCINE 2020-12-29 00:00:00 Completed [facility] SARS-COV-2 COVID-19 PFIZER VACCINE 2020-12-29 00:00:00 Completed [facility] SARS-COV-2 COVID-19 PFIZER VACCINE 2020-12-29 00:00:00 Completed [facility] SARS-COV-2 COVID-19 PFIZER VACCINE 2020-12-29 00:00:00 Completed [facility] SARS-COV-2 COVID-19 PFIZER VACCINE 2020-12-29 00:00:00 Completed [facility] SARS-COV-2 COVID-19 PFIZER VACCINE 2020-12-29 00:00:00 Completed [facility] SARS-COV-2 COVID-19 PFIZER VACCINE 2020-12-29 00:00:00 Completed [facility] SARS-COV-2 COVID-19 PFIZER VACCINE 2020-12-29 00:00:00 Completed [facility] SARS-COV-2 COVID-19 PFIZER VACCINE 2020-12-29 00:00:00 Completed [facility] SARS-COV-2 COVID-19 PFIZER VACCINE 2020-12-29 00:00:00 Completed [facility] SARS-COV-2 COVID-19 PFIZER VACCINE 2020-12-29 00:00:00 Completed [facility] SARS-COV-2 COVID-19 PFIZER VACCINE 2020-12-29 00:00:00 Completed [facility] SARS-COV-2 COVID-19 PFIZER VACCINE 2020-12-29 00:00:00 Completed [facility] SARS-COV-2 COVID-19 PFIZER VACCINE 2020-12-29 00:00:00 Completed [facility] SARS-COV-2 COVID-19 PFIZER VACCINE 2020-12-29 00:00:00 Completed [facility] SARS-COV-2 COVID-19 PFIZER VACCINE 2020-12-29 00:00:00 Completed [facility] SARS-COV-2 COVID-19 PFIZER VACCINE 2020-12-29 00:00:00 Completed [facility] SARS-COV-2 COVID-19 PFIZER VACCINE 2020-12-29 00:00:00 Completed [facility] SARS-COV-2 COVID-19 PFIZER VACCINE 2020-12-29 00:00:00 Completed [facility] SARS-COV-2 COVID-19 PFIZER VACCINE 2020-12-07 00:00:00 Completed [facility] SARS-COV-2 COVID-19 PFIZER VACCINE 2020-12-07 00:00:00 Completed [facility] SARS-COV-2 COVID-19 PFIZER VACCINE 2020-12-07 00:00:00 Completed [facility] SARS-COV-2 COVID-19 PFIZER VACCINE 2020-12-07 00:00:00 Completed [facility] SARS-COV-2 COVID-19 PFIZER VACCINE 2020-12-07 00:00:00 Completed [facility] SARS-COV-2 COVID-19 PFIZER VACCINE 2020-12-07 00:00:00 Completed [facility] SARS-COV-2 COVID-19 PFIZER VACCINE 2020-12-07 00:00:00 Completed [facility] SARS-COV-2 COVID-19 PFIZER VACCINE 2020-12-07 00:00:00 Completed [facility] SARS-COV-2 COVID-19 PFIZER VACCINE 2020-12-07 00:00:00 Completed [facility] SARS-COV-2 COVID-19 PFIZER VACCINE 2020-12-07 00:00:00 Completed [facility] SARS-COV-2 COVID-19 PFIZER VACCINE 2020-12-07 00:00:00 Completed [facility] SARS-COV-2 COVID-19 PFIZER VACCINE 2020-12-07 00:00:00 Completed [facility] SARS-COV-2 COVID-19 PFIZER VACCINE 2020-12-07 00:00:00 Completed [facility] SARS-COV-2 COVID-19 PFIZER VACCINE 2020-12-07 00:00:00 Completed [facility] SARS-COV-2 COVID-19 PFIZER VACCINE 2020-12-07 00:00:00 Completed [facility] SARS-COV-2 COVID-19 PFIZER VACCINE 2020-12-07 00:00:00 Completed [facility] SARS-COV-2 COVID-19 PFIZER VACCINE 2020-12-07 00:00:00 Completed [facility] SARS-COV-2 COVID-19 PFIZER VACCINE 2020-12-07 00:00:00 Completed [facility] SARS-COV-2 COVID-19 PFIZER VACCINE 2020-12-07 00:00:00 Completed [facility] SARS-COV-2 COVID-19 PFIZER VACCINE 2020-12-07 00:00:00 Completed [facility] SARS-COV-2 COVID-19 PFIZER VACCINE 2020-12-07 00:00:00 Completed [facility] SARS-COV-2 COVID-19 PFIZER VACCINE 2020-12-07 00:00:00 Completed [facility] SARS-COV-2 COVID-19 PFIZER VACCINE 2020-12-07 00:00:00 Completed [facility] SARS-COV-2 COVID-19 PFIZER VACCINE 2020-12-07 00:00:00 Completed [facility] SARS-COV-2 COVID-19 PFIZER VACCINE 2020-12-07 00:00:00 Completed [facility] SARS-COV-2 COVID-19 PFIZER VACCINE 2020-12-07 00:00:00 Completed [facility] SARS-COV-2 COVID-19 PFIZER VACCINE 2020-12-07 00:00:00 Completed [facility] SARS-COV-2 COVID-19 PFIZER VACCINE 2020-12-07 00:00:00 Completed [facility] SARS-COV-2 COVID-19 PFIZER VACCINE 2020-12-07 00:00:00 Completed [facility] SARS-COV-2 COVID-19 PFIZER VACCINE 2020-12-07 00:00:00 Completed [facility] SARS-COV-2 COVID-19 PFIZER VACCINE 2020-12-07 00:00:00 Completed [facility] SARS-COV-2 COVID-19 PFIZER VACCINE 2020-12-07 00:00:00 Completed [facility] SARS-COV-2 COVID-19 PFIZER VACCINE 2020-12-07 00:00:00 Completed [facility] SARS-COV-2 COVID-19 PFIZER VACCINE 2020-12-07 00:00:00 Completed [facility] SARS-COV-2 COVID-19 PFIZER VACCINE 2020-12-07 00:00:00 Completed [facility] SARS-COV-2 COVID-19 PFIZER VACCINE 2020-12-07 00:00:00 Completed [facility] SARS-COV-2 COVID-19 PFIZER VACCINE 2020-12-07 00:00:00 Completed [facility] SARS-COV-2 COVID-19 PFIZER VACCINE 2020-12-07 00:00:00 Completed [facility] SARS-COV-2 COVID-19 PFIZER VACCINE 2020-12-07 00:00:00 Completed [facility] SARS-COV-2 COVID-19 PFIZER VACCINE 2020-12-07 00:00:00 Completed [facility] SARS-COV-2 COVID-19 PFIZER VACCINE 2020-12-07 00:00:00 Completed [facility] SARS-COV-2 COVID-19 PFIZER VACCINE 2020-12-07 00:00:00 Completed [facility] SARS-COV-2 COVID-19 PFIZER VACCINE 2020-12-07 00:00:00 Completed [facility] SARS-COV-2 COVID-19 PFIZER VACCINE 2020-12-07 00:00:00 Completed [facility] SARS-COV-2 COVID-19 PFIZER VACCINE 2020-12-07 00:00:00 Completed [facility] influenza nasal, unspecified formulation influenza nasal, unspecified formulation Unknown Completed [facility] Tdap Tdap Unknown Completed [facility] ical pneumococcal polysaccharide PPV23 pneumococcal polysaccharide PPV23 Unknown Completed [facility] influenza, unspecified formulation influenza, unspecified formulation Unknown Completed [facility] COVID-19, mRNA, LNP-S, PF, 30 mcg/0.3 mL dose [facility] COVID-19, mRNA, LNP-S, PF, 30 mcg/0.3 mL dose (Pf[employer]) Unknown Completed [facility] COVID-19, mRNA, LNP-S, PF, 30 mcg/0.3 mL dose (Pf[employer]) COVID-19, mRNA, LNP-S, PF, 30 mcg/0.3 mL dose (Pfizer-[employer]) Unknown Completed [facility] influenza nasal, unspecified formulation influenza nasal, unspecified formulation Unknown Completed [facility] Tdap Tdap Unknown Completed [facility] ical pneumococcal polysaccharide PPV23 pneumococcal polysaccharide PPV23 Unknown Completed [facility] influenza, unspecified formulation influenza, unspecified formulation Unknown Completed [facility] COVID-19, mRNA, LNP-S, PF, 30 mcg/0.3 mL dose (Pf[employer]) COVID-19, mRNA, LNP-S, PF, 30 mcg/0.3 mL dose (Pfizer[employer]) Unknown Completed [facility] COVID-19, mRNA, LNP-S, PF, 30 mcg/0.3 mL dose (Pf[employer]) COVID-19, mRNA, LNP-S, PF, 30 mcg/0.3 mL dose (Pfizer-[employer]) Unknown Completed [facility] influenza nasal, unspecified formulation influenza nasal, unspecified formulation Unknown Completed [facility] Tdap Tdap Unknown Completed [facility] ical pneumococcal polysaccharide PPV23 pneumococcal polysaccharide PPV23 Unknown Completed [facility] influenza, unspecified formulation influenza, unspecified formulation Unknown Completed [facility] COVID-19, mRNA, LNP-S, PF, 30 mcg/0.3 mL dose (Pf[employer]) COVID-19, mRNA, LNP-S, PF, 30 mcg/0.3 mL dose (Pfizer-[employer]) Unknown Completed [facility] COVID-19, mRNA, LNP-S, PF, 30 mcg/0.3 mL dose (Pf[employer]) COVID-19, mRNA, LNP-S, PF, 30 mcg/0.3 mL dose (Pfizer-[employer]) Unknown Completed [facility] SARS-COV-2 COVID-19 PFIZER VACCINE Unknown Completed [facility] SARS-COV-2 COVID-19 PFIZER VACCINE Unknown Completed [facility] SARS-COV-2 COVID-19 PFIZER VACCINE Unknown Completed [facility] SARS-COV-2 COVID-19 PFIZER VACCINE Unknown Completed [facility] SARS-COV-2 COVID-19 PFIZER VACCINE Unknown Completed [facility] SARS-COV-2 COVID-19 PFIZER VACCINE Unknown Completed [facility] SARS-COV-2 COVID-19 PFIZER VACCINE Unknown Completed [facility] SARS-COV-2 COVID-19 PFIZER VACCINE Unknown Completed [facility] Vital Signs Vital Name Observation Time [...] Systolic blood pressure 2023-08-19 17:11:00 102 mm[Hg] [facility] Diastolic blood pressure 2023-08-19 17:11:00 73 mm[Hg] [facility] Heart rate 2023-08-19 17:11:00 80 /min [facility] Respiratory rate 2023-08-19 17:11:00 16 /min [facility] Body weight 2023-08-19 17:11:00 79.379 kg [facility] BMI 2023-08-19 17:11:00 25.84 kg/m2 [facility] Oxygen saturation in Arterial blood by Pulse oximetry 2023-08-19 17:11:00 94 /min [facility] Systolic blood pressure 2023-06-22 14:55:00 154 mm[Hg] [facility] Diastolic blood pressure 2023-06-22 14:55:00 78 mm[Hg] [facility] Heart rate 2023-06-22 14:55:00 82 /min [facility] Body temperature 2023-06-22 14:50:00 36.28 Genevieve [facility] Respiratory rate 2023-06-22 14:50:00 18 /min [facility] Body weight 2023-06-22 14:50:00 79.425 kg [facility] BMI 2023-06-22 14:50:00 25.86 kg/m2 [facility] Oxygen saturation in Arterial blood by Pulse oximetry 2023-06-22 14:50:00 95 /min [facility] Systolic blood pressure 2023-05-08 21:34:00 130 mm[Hg] [facility] Diastolic blood pressure 2023-05-08 21:34:00 90 mm[Hg] [facility] Heart rate 2023-05-08 21:34:00 62 /min [facility] Body temperature 2023-05-08 21:34:00 36.11 Genevieve [facility] Respiratory rate 2023-05-08 21:34:00 28 /min [facility] Body height 2023-05-08 21:34:00 175.3 cm [facility] Body weight 2023-05-08 21:34:00 81.647 kg [facility] BMI 2023-05-08 21:34:00 26.58 kg/m2 [facility] Oxygen saturation in Arterial blood by Pulse oximetry 2023-05-08 21:34:00 98 /min [facility] BP Diastolic 2023-02-05 00:00:00 61 mm[Hg] [...] Systolic blood pressure 2023-01-18 16:37:00 158 mm[Hg] [facility] Diastolic blood pressure 2023-01-18 16:37:00 92 mm[Hg] [facility] Heart rate 2023-01-18 16:37:00 90 /min [facility] Systolic blood pressure 2023-01-18 15:47:00 155 mm[Hg] [facility] Diastolic blood pressure 2023-01-18 15:47:00 109 mm[Hg] [facility] Heart rate 2023-01-18 15:45:00 103 /min [facility] Body height 2023-01-18 15:45:00 175.3 cm [facility] Body weight 2023-01-18 15:45:00 78.835 kg [facility] BMI 2023-01-18 15:45:00 25.67 kg/m2 [facility] BP Diastolic 2022-12-29 00:00:00 75 mm[Hg] [facility] [...] Systolic blood pressure 2022-09-25 21:32:00 150 mm[Hg] [facility] Diastolic blood pressure 2022-09-25 21:32:00 92 mm[Hg] [facility] Body height 2022-09-25 15:49:00 175.3 cm [facility] Body Weight 2022-09-22 00:00:00 2688 [oz_av] Pr [...] Systolic blood pressure 2022-09-10 18:52:00 132 mm[Hg] [facility] Diastolic blood pressure 2022-09-10 18:52:00 77 mm[Hg] [facility] Heart rate 2022-09-10 18:46:00 75 /min [facility] Respiratory rate 2022-09-10 18:46:00 20 /min [facility] Body height 2022-09-10 18:46:00 175.3 cm [facility] Body weight 2022-09-10 18:46:00 78.835 kg [facility] BMI 2022-09-10 18:46:00 25.67 kg/m2 [facility] Oxygen saturation in Arterial blood by Pulse oximetry 2022-09-10 18:46:00 97 /min [facility] Height 2022-09-08 00:00:00 69 [in_i] [facility] BMI (Body Mass Index) 2022-09-08 00:00:00 24.7 kg/m2 [facility] BP Systolic 2022-09-08 00:00:00 136 mm[Hg] [facility] Body Weight 2022-09-08 00:00:00 2672 [oz_av] [facility] BP Diastolic 2022-09-08 00:00:00 79 mm[Hg] [facility] Systolic blood pressure 2022-08-21 14:30:00 162 mm[Hg] [facility] Diastolic blood pressure 2022-08-21 14:30:00 106 mm[Hg] [facility] Heart rate 2022-08-21 14:30:00 65 /min [facility] Body weight 2022-08-21 14:17:00 74.844 kg [facility] BMI 2022-08-21 14:17:00 21.77 kg/m2 [facility] Systolic blood pressure 2022-05-02 20:58:00 170 mm[Hg] [facility] Diastolic blood pressure 2022-05-02 20:58:00 89 mm[Hg] [facility] Heart rate 2022-05-02 20:58:00 80 /min [facility] Respiratory rate 2022-05-02 20:58:00 16 /min [facility] Oxygen saturation in Arterial blood by Pulse oximetry 2022-05-02 20:58:00 98 /min [facility] Body temperature 2022-05-02 16:41:00 36.67 Genevieve [facility] Body weight 2022-05-02 16:41:00 63.957 kg [facility] BMI 2022-05-02 16:41:00 18.61 kg/m2 [facility] Systolic blood pressure 2022-05-01 13:04:00 163 mm[Hg] [facility] Diastolic blood pressure 2022-05-01 13:04:00 91 mm[Hg] [facility] Heart rate 2022-05-01 13:04:00 68 /min [facility] Body temperature 2022-05-01 13:04:00 36.72 Genevieve [facility] Respiratory rate 2022-05-01 13:04:00 18 /min [facility] Oxygen saturation in Arterial blood by Pulse oximetry 2022-05-01 13:04:00 98 /min [facility] Body height 2022-04-30 12:32:00 185.4 cm [facility] Body weight 2022-04-30 12:32:00 64 kg [facility] BMI 2022-04-30 12:32:00 18.62 kg/m2 [facility] Systolic blood pressure 2022-04-29 02:45:00 154 mm[Hg] [facility] Diastolic blood pressure 2022-04-29 02:45:00 125 mm[Hg] [facility] Heart rate 2022-04-29 02:45:00 69 /min [facility] Respiratory rate 2022-04-29 02:45:00 20 /min [facility] Oxygen saturation in Arterial blood by Pulse oximetry 2022-04-29 02:45:00 99 /min [facility] Body temperature 2022-04-28 23:07:00 36.61 Genevieve [facility] Body weight 2022-04-28 23:07:00 63.504 kg [facility] BMI 2022-04-28 23:07:00 18.47 kg/m2 [facility] Procedures Procedure Date / Time Performed Performing Clinician Source EXTERNAL PROVIDER - [facility] CARDIOLOGY 2023-06-22 05:01:00 Doctor Unassigned, [place] [facility] EKG-12 LEAD 2023-05-08 21:46:25 [facility] 2022-09-10 06:01:00 Doctor Unassigned, [place] [facility] CT HEAD WO CONTRAST 2022-09-04 18:24:15 Jaqui Ervin [facility] ASSIGNMENT OF BENEFITS 2022-09-04 18:09:30 Docto r Unassigned, [place] [facility] ASSIGNMENT OF BENEFITS 2022-08-21 13:37:31 Docto r Unassigned, [place] [facility] REFERRAL- REQUEST/RESPONSE 2022-07-21 05:01:00 Doctor Unassigned, [place] [facility] REFERRAL- REQUEST/RESPONSE 2022-06-27 05:01:00 Doctor Unassigned, [place] [facility] EKG-12 LEAD 2022-05-02 20:34:45 Alicia Talley [facility] URINALYSIS 2022-05-02 17:42:00 Alicia Talley [facility] LACTIC ACID WHOLE BLOOD 2022-05-02 17:34:00 Kathy Talley [facility] TROPONIN I 2022-05-02 17:33:00 Alicia Talley [facility] COMP. METABOLIC PANEL (52258) 2022-05-02 17:33:00 Alicia Talley [facility] ETHANOL 2022-05-02 17:33:00 Alicia Talley [facility] CBC WITH DIFF 2022-05-02 17:33:00 Alicia Talley [facility] CONSENT/REFUSAL FOR DIAGNOSIS AND TREATMENT 2022-05-02 16:41:24 Doctor Unassigned, [place] [facility] PHOSPHORUS 2022-05-01 05:14:00 [place] [facility] MAGNESIUM 2022-05-01 05:14:00 [place] [facility] BASIC METABOLIC PANEL (NA, K, CL, CO2, GLUCOSE, BUN, CREATININE, CA) 2022-05-01 05:14:00 [place] [facility] TRANSTHORACIC ECHO (TTE) COMPLETE 2022-04-30 19:17:[address] [facility] MAGNESIUM 2022-04-30 15:45:00 [facility]OL[facility] PANEL (NA, K, CL, CO2, GLUCOSE, BUN, CREATININE, CA) 2022-04-30 15:45:[address] [facility] CT CERVICAL SPINE WO CONTRAST 2022-04-30 15:08:06 [place] [facility] CT HEAD WO CONTRAST 2022-04-30 15:08:06 [place], Pet er [facility] OSMOLALITY URINE 2022-04-30 11:27:[address] [facility] (IMMUNOASSAY) - COMPREHENSIVE DRUG SCREEN 2022-04-30 11:27:00 [place] [facility] URINALYSIS 2022-04-30 11:27:[address] [facility] CREATININE, URINE RANDOM 2022-04-30 11:27:[address] [facility] SODIUM, URINE RANDOM 2022-04-30 11:27:[address] [facility] ACTIVATED PARTIAL THRMPLAS DANNY 2022-04-30 11:26:[address] [facility] PROTHROMBIN TIME / INR 2022-04-30 05:27:[address] [facility] ACTIVATED PARTIAL THRMPLAS DANNY 2022-04-30 05:27:00 [facility] CREATINE KINASE 2022-04-29 23:20:[address] [facility] MAGNESIUM 2022-04-29 23:20:00 [facility] OSMOLALITY, SERUM OR PLASMA 2022-04-29 23:20:00 [facility]ola [facility] TROPONIN I 2022-04-29 23:20:00 Wale [facility] THYROID STIMULATING HORMONE 2022-04-29 23:20:00 [facility]ola [facility] COMP. METABOLIC PANEL (68602) 2022-04-29 23:20:00 [facility] LIPID PANEL (40346)(TOTAL CHOLESTEROL, TRIGLYCERIDES, HDL) 2022-04-29 23:20:00 [facility] CBC WITH DIFF 2022-04-29 23:20:00 [facility] GLYCOSYLATED HEMOGLOBIN (A1C) 2022-04-29 23:20:00 [facility] N-TERMINAL PRO-BNP 2022-04-29 23:20:00 [facility] FREE T3 2022-04-29 23:20:00 [facility] COVID-19 (ID NOW RAPID TESTING) 2022-04-29 23:20:[address] [facility] LAB ONLY COVID INTERPRETATION 2022-04-29 23:20:00 Bubba Echevarria [facility] XR CHEST 1 VW 2022-04-29 22:57:00 Bubba Echevarria [facility] HB ECG ROUTINE & RHYTHM STRIP 2022-04-29 21:53:14 Osmin Echevarriacadeyanira [facility] XR CHEST 2 VW 2022-04-29 00:46:00 Bernardo Rodríguez [facility] EKG-12 LEAD 2022-04-29 00:23:05 Bernardo Rodríguez [facility] LIPASE 2022-04-29 00:08:00 Bernardo Rodríguez [facility] TROPONIN I 2022-04-29 00:08:00 Bernardo Rodríguez [facility] HEPATIC FUNCTION PANEL (07855) (ALB,T.PRO,BILI T,BU/BC,ALT,AST,ALK PHOS) 2022-04-29 00:08:00 Bernardo Rodríguez [facility] BASIC METABOLIC PANEL (NA, K, CL, CO2, GLUCOSE, BUN, CREATININE, CA) 2022-04-29 00:08:00 Bernardo Rodríguez [facility] CBC WITH DIFF 2022-04-29 00:08:00 Bernardo Rodríguez [facility] N-TERMINAL PRO-BNP 2022-04-29 00:08:00 Bernardo Rodríguez [facility] COVID-19 (ID NOW RAPID TESTING) 2022-04-29 00:08:00 Bernardo Rodríguez [facility] Plan of Care Planned Activity Planned Date Details Comments [facility] En[facility] Start Date/Time End Date/Time Encounter Type Admission Type Attending [facility] Facility Care Department Encounter ID Source 2024-01-05 00:00:00 2024-01-05 00:00:00 Outpatient [facility] [id number] [facility] 2024-01-04 00:00:00 2024-01-04 00:00:00 Outpatient [facility] [id number] [facility] 2023-12-30 00:00:00 2023-12-30 00:00:00 Outpatient [facility]Tod [facility] [id number] [facility] 2023-12-21 00:00:00 2023-12-21 00:00:00 LANDON Sullivan: [address] [place] [phone] , Ph. Critical access hospital - [facility] [id number] [facility] 2023-12-20 00:00:00 2023-12-20 00:00:00 Outpatient [facility] [id number] [facility] 2023-12-17 00:00:00 2023-12-17 00:00:00 Outpatient [facility]od [facility] [id number] [facility] 2023-12-14 00:00:00 2023-12-14 00:00:00 Randi Parsons PA: [address] [place] [phone] , Ph. Critical access hospital - [facility] [id number] [facility] 2023-12-09 00:00:00 2023-12-09 00:00:00 Outpatient [facility]od [facility] [id number] [facility] 2023-12-08 00:00:00 2023-12-08 00:00:00 Randi Parsons PA: [address] [place] [phone] , Ph. Critical access hospital - [facility] [id number] [facility] 2023-12-06 00:00:00 2023-12-06 00:00:00 Outpatient [facility]Tod [facility] [id number] [facility] 2023-12-03 00:00:00 2023-12-03 00:00:00 Randi Parsons PA: [address] [place] [phone] , Ph. Critical access hospital - [facility] [id number] [facility] 2023-11-29 00:00:00 2023-11-29 00:00:00 Outpatient [facility]Tod d[facility] [id number] [facility] 2023-11-23 00:00:00 2023-11-23 00:00:00 Outpatient [facility]od d[facility] [id number] [facility] 2023-11-23 00:00:00 2023-11-23 00:00:00 LANDON Sullivan: [address] [place] [phone] , Ph. [facility] [id number] [facility] 2023-11-19 00:00:00 2023-11-19 00:00:00 Outpatient [facility]Tod d[facility] PRIV [id number] [facility] 2023-11-19 00:00:00 2023-11-19 00:00:00 Randi Parsons PA: [address] [place] [phone] , Ph. [facility] [id number] [facility] 2023-11-18 00:00:00 2023-11-18 00:00:00 Outpatient [facility]Tod d[facility] [id number] [facility] 2023-11-17 00:00:00 2023-11-17 00:00:00 Outpatient [facility]od [facility] [id number] [facility] 2023-11-16 00:00:00 2023-11-16 00:00:00 LANDON Sullivan: [address] [place] [phone] , Ph. [facility] [id number] [facility] 2023-11-15 00:00:00 2023-11-15 00:00:00 Outpatient [facility]Tod d_[facility] PRIV [id number] [facility] 2023-11-13 00:00:00 2023-11-13 00:00:00 Outpatient [facility]Tod d_[facility] PRIV [id number] [facility] 2023-11-12 00:00:00 2023-11-12 00:00:00 LANDON Sullivan: [address] [place] [phone] , Ph. [facility] [id number] [facility] 2023-11-09 00:00:00 2023-11-09 00:00:00 LANDON Sullivan: [address] [place] [phone] , Ph. Critical access hospital - [facility] [id number] [facility] 2023-10-29 00:00:00 2023-10-29 00:00:00 Outpatient GC_BAHC_Tod d_J PRIV PRIV [id number] [facility] 2023-10-21 00:00:00 2023-10-21 00:00:00 Outpatient GC_BAHC_Tod d_J PRIV PRIV [id number] [facility] 2023-10-15 00:00:00 2023-10-15 00:00:00 Outpatient GC_BAHC_Tod d_J PRIV PRIV [id number] [facility] 2023-10-07 00:00:00 2023-10-07 00:00:00 Outpatient GC_BAHC_Tod d_J PRIV PRIV [id number] [facility] 2023-09-29 00:00:00 2023-09-29 00:00:00 Outpatient GC_BAHC_Tod d_J PRIV PRIV [id number] [facility] 2023-09-29 00:00:00 2023-09-29 00:00:00 Outpatient GC_BAHC_Tod d_J PRIV PRIV [id number] [facility] 2023-09-24 00:00:00 2023-09-24 00:00:00 Outpatient GC_BAHC_Tod d_J PRIV PRIV [id number] [facility] 2023-09-10 00:00:00 2023-09-10 00:00:00 Outpatient GC_BAHC_Tod d_J PRIV PRIV [id number] [facility] 2023-09-10 00:00:00 2023-09-10 00:00:00 Outpatient GC_BAHC_Tod d_J PRIV PRIV [id number] [facility] 2023-09-07 00:00:00 2023-09-07 00:00:00 Outpatient GC_BAHC_Tod d_J PRIV PRIV [id number] [facility] 2023-09-02 08:30:00 2023-09-02 08:30:00 Outpatient [facility] [id number] [facility] 2023-09-01 00:00:00 2023-09-01 00:00:00 Outpatient GC_BAHC_Tod d_J PRIV PRIV [id number] [facility] 2023-08-30 00:00:00 2023-08-30 00:00:00 Outpatient GC_BAHC_Tod d_J PRIV PRIV [id number] [facility] 2023-08-27 00:00:00 2023-08-27 00:00:00 Outpatient GC_BAHC_Tod d_J PRIV PRIV [id number] [facility] 2023-08-26 00:00:00 2023-08-26 00:00:00 Outpatient GC_BAHC_Tod d_J PRIV PRIV [id number] [facility] 2023-08-19 11:40:00 2023-08-19 12:26:17 Outpatient KYLEE [facility]CGINNIS [facility] [id number] [facility] 2023-08-19 11:40:00 2023-08-19 12:26:17 Office Visit Kylee Radford [facility] [id number] [id number] [facility] 2023-08-18 00:00:00 2023-08-18 00:00:00 Outpatient GC_BAHC_Tod d_J PRIV PRIV [id number] [facility] 2023-08-17 00:00:00 2023-08-17 00:00:00 Outpatient GC_BAHC_Tod d_J PRIV PRIV [id number] [facility] 2023-08-17 00:00:00 2023-08-17 00:00:00 Outpatient GC_BAHC_Tod d_J PRIV PRIV [id number] [facility] 2023-08-13 00:00:00 2023-08-13 00:00:00 Outpatient GC_BAHC_Tod d_J PRIV PRIV [id number] [facility] 2023-08-12 00:00:00 2023-08-12 00:00:00 Outpatient GC_BAHC_Tod d_J PRIV PRIV [id number] [facility] 2023-08-11 00:00:00 2023-08-11 00:00:00 Outpatient GC_BAHC_Tod d_J PRIV PRIV [id number] [facility] 2023-08-11 00:00:00 2023-08-11 00:00:00 Outpatient GC_BAHC_Tod d_J PRIV PRIV [id number] [facility] 2023-08-05 14:00:00 2023-08-05 14:00:00 Outpatient [facility] [id number] [facility] 2023-08-04 00:00:00 2023-08-04 00:00:00 Outpatient GC_BAHC_Tod d_J PRIV PRIV [id number] [facility] 2023-07-28 00:00:00 2023-07-28 00:00:00 Outpatient GC_BAHC_Tod d_J PRIV PRIV [id number] [facility] 2023-07-28 00:00:00 2023-07-28 00:00:00 Outpatient GC_BAHC_Tod d_J PRIV PRIV [id number] [facility] 2023-07-26 00:00:00 2023-07-26 00:00:00 Outpatient GC_BAHC_Tod d_J PRIV PRIV [id number] [facility] 2023-07-12 00:00:00 2023-07-12 00:00:00 Telephone Naa Lamb [facility] ..840.114 [id number] [id number] [id number] [facility] 2023-07-02 00:00:00 2023-07-02 00:00:00 Outpatient GC_BAHC_Tod d_J PRIV PRIV [id number] [facility] 2023-07-02 00:00:00 2023-07-02 00:00:00 Outpatient GC_BAHC_Tod d_J PRIV PRIV [id number] [facility] 2023-07-02 00:00:00 2023-07-02 00:00:00 Outpatient GC_BAHC_Tod d_J PRIV PRIV [id number] [facility] 2023-07-01 00:00:00 2023-07-01 00:00:00 Outpatient GC_BAHC_Tod d_J PRIV PRIV [id number] [facility] 2023-06-30 00:00:00 2023-06-30 00:00:00 Outpatient GC_BAHC_Tod d_J PRIV PRIV [id number] [facility] 2023-06-23 00:00:00 2023-06-23 00:00:00 Outpatient GC_BAHC_Tod d_J PRIV PRIV [id number] [facility] 2023-06-22 09:30:00 2023-06-22 11:17:47 Outpatient R NAA [facility] [id number] [facility] 2023-06-22 09:30:00 2023-06-22 11:17:47 Office Visit Naa Lamb [facility] 1..840.114 350.1.13.10 [id number] [id number] [facility] 2023-06-22 00:00:00 2023-06-22 00:00:00 Orders Only Doctor Unassigned, [place] [facility] [id number] 350.1.13.10 [id number] [id number] [facility] 2023-06-18 00:00:00 2023-06-18 00:00:00 Outpatient GC_BAHC_Tod d_J PRIV PRIV [id number] [facility] 2023-06-14 00:00:00 2023-06-14 00:00:00 Outpatient GC_BAHC_Tod d_J PRIV PRIV [id number] [facility] 2023-06-11 00:00:00 2023-06-11 00:00:00 Outpatient GC_BAHC_Tod d_J PRIV PRIV [id number] [facility] 2023-06-11 00:00:00 2023-06-11 00:00:00 Outpatient GC_BAHC_Tod d_J PRIV PRIV [id number] [facility] 2023-06-04 00:00:00 2023-06-04 00:00:00 Outpatient GC_BAHC_Tod d_J PRIV PRIV [id number] [facility] 2023-06-04 00:00:00 2023-06-04 00:00:00 Outpatient GC_BAHC_Tod d_J PRIV PRIV [id number] [facility] 2023-06-04 00:00:00 2023-06-04 00:00:00 Outpatient GC_BAHC_Tod d_J PRIV PRIV [id number] [facility] 2023-06-02 00:00:00 2023-06-02 00:00:00 Outpatient GC_BAHC_Tod d_J PRIV PRIV [id number] [facility] 2023-06-02 00:00:00 2023-06-02 00:00:00 Outpatient GC_BAHC_Tod d_J PRIV PRIV [id number] [facility] 2023-05-26 00:00:2023-05-26 00:00:00 Outpatient GC_BAHC_Tod d_J PRIV PRIV [id number] [facility] 2023-05-26 00:00:00 2023-05-26 00:00:00 Outpatient GC_BAHC_Tod d_J PRIV PRIV [id number] [facility] 2023-05-24 00:00:00 2023-05-24 00:00:00 Outpatient GC_BAHC_Tod d_J PRIV PRIV [id number] [facility] 2023-05-20 00:00:00 2023-05-20 00:00:00 Outpatient GC_BAHC_Tod d_J PRIV PRIV [id number] [facility] 2023-05-14 00:00:00 2023-05-14 00:00:00 Outpatient GC_BAHC_Tod d_J PRIV PRIV [id number] [facility] 2023-05-14 00:00:00 2023-05-14 00:00:00 Outpatient GC_BAHC_Tod d_J PRIV PRIV [id number] [facility] 2023-05-11 00:00:00 2023-05-11 00:00:00 Outpatient GC_BAHC_Tod d_J PRIV PRIV [id number] [facility] 2023-05-08 16:30:00 2023-05-08 17:09:00 Emergency X EM MCNEAL [facility] ERT [id number] [facility] 2023-05-08 16:30:00 2023-05-08 17:09:00 Emergency Em Mcneal [facility] [id number] [id number] [facility] 2023-04-30 00:00:00 2023-04-30 00:00:00 Outpatient GC_BAHC_Tod d_J PRIV PRIV [id number] [facility] 2023-04-30 00:00:00 2023-04-30 00:00:00 Outpatient GC_BAHC_Tod d_J PRIV PRIV [id number] [facility] 2023-04-30 00:00:00 2023-04-30 00:00:00 Outpatient GC_BAHC_Tod d_J PRIV PRIV [id number] [facility] 2023-04-23 00:00:00 2023-04-23 00:00:00 Outpatient GC_BAHC_Tod d_J PRIV PRIV [id number] [facility] 2023-04-22 00:00:00 2023-04-22 00:00:00 Outpatient GC_BAHC_Tod d_J PRIV PRIV [id number] [facility] 2023-04-21 00:00:00 2023-04-21 00:00:00 Outpatient GC_BAHC_Tod d_J PRIV PRIV [id number] [facility] 2023-04-20 00:00:00 2023-04-20 00:00:00 Outpatient GC_BAHC_Tod d_J PRIV PRIV [id number] [facility] 2023-04-15 00:00:00 2023-04-15 00:00:00 Outpatient GC_BAHC_Tod d_J PRIV PRIV [id number] [facility] 2023-04-14 00:00:00 2023-04-14 00:00:00 Outpatient GC_BAHC_Tod d_J PRIV PRIV [id number] [facility] 2023-04-13 00:00:00 2023-04-13 00:00:00 Outpatient GC_BAHC_Tod d_J PRIV PRIV [id number] [facility] 2023-04-07 00:00:00 2023-04-07 00:00:00 Outpatient GC_BAHC_Tod d_J PRIV PRIV [id number] [facility] 2023-03-19 00:00:00 2023-03-19 00:00:00 Outpatient GC_BAHC_Tod d_J PRIV PRIV [id number] [facility] 2023-03-10 00:00:00 2023-03-10 00:00:00 Outpatient GC_BAHC_Tod d_J PRIV PRIV [id number] [facility] 2023-03-10 00:00:00 2023-03-10 00:00:00 Outpatient GC_BAHC_Tod d_J PRIV PRIV [id number] [facility] 2023-03-04 00:00:00 2023-03-04 00:00:00 Outpatient GC_BAHC_Tod d_J PRIV PRIV [id number] [facility] 2023-03-02 00:00:00 2023-03-02 00:00:00 Outpatient GC_BAHC_Tod d_J PRIV PRIV [id number] [facility] 2023-02-25 00:00:00 2023-02-25 00:00:00 Outpatient GC_BAHC_Tod d_J PRIV PRIV [id number] [facility] 2023-02-05 00:00:00 2023-02-05 00:00:00 LANDON Sullivan: [address] [place], [place] [phone] , Ph. Critical access hospital - [facility] [id number] [facility] 2023-02-02 00:00:00 2023-02-02 00:00:00 Outpatient GC_BAHC_Tod d_J PRIV PRIV [id number] [facility] 2023-02-02 00:00:00 2023-02-02 00:00:00 Outpatient GC_BAHC_Tod d_J PRIV PRIV [id number] [facility] 2023-02-02 00:00:00 2023-02-02 00:00:00 Outpatient GC_BAHC_Tod d_J PRIV PRIV [id number] [facility] 2023-02-02 00:00:00 2023-02-02 00:00:00 Outpatient GC_BAHC_Tod d_J PRIV PRIV [id number] [facility] 2023-02-02 00:00:00 2023-02-02 00:00:00 Pino Almeida MD: [address] [place] [phone] , Ph. Critical access hospital - GC[facility]HC[facility] [id number] [facility] 2023-01-27 00:00:00 2023-01-27 00:00:00 LANDON Sullivan: [address] [place] [phone] , Ph. Critical access hospital - GC[facility]HC[facility] [id number] [facility] 2023-01-20 00:00:00 2023-01-20 00:00:00 Outpatient [facility]_Tod d_[facility] PRIV [id number] [facility] 2023-01-20 00:00:00 2023-01-20 00:00:00 Outpatient GC[facility]_Tod d_J [facility] [id number] [facility] 2023-01-20 00:00:00 2023-01-20 00:00:00 Outpatient GC[facility]_Tod d_J [facility] [id number] [facility] 2023-01-18 11:00:00 2023-01-18 11:31:14 Outpatient R DEE DEE ESQUIVEL [facility] [id number] [facility] 2023-01-18 11:00:00 2023-01-18 11:31:14 [facility] [id number] [facility] 2023-01-12 00:00:00 2023-01-12 00:00:00 [facility] [id number] [facility] 2022-12-29 00:00:00 2022-12-29 00:00:00 Randi Parsons PA: [address] [place] [id number] , Ph. Critical access hospital - [facility] [id number] [facility] 2022-12-19 00:00:00 2022-12-19 00:00:00 Outpatient GC[facility]BAHC_Tod d_J [facility] PRIV [id number] [facility] 2022-12-19 00:00:00 2022-12-19 00:00:00 Outpatient GC[facility]_Tod d_J [facility] [id number] [facility] 2022-12-18 00:00:00 2022-12-18 00:00:00 Outpatient GC[facility]_Tod d_J [facility] [id number] [facility] 2022-12-15 00:00:00 2022-12-15 00:00:00 LANDON Sullivan: [address] [place] [phone] , Ph. Critical access hospital - [facility] [id number] [facility] 2022-12-08 15:30:00 2022-12-08 15:30:00 Outpatient NAA CORREA [facility] [id number] [facility] 2022-11-24 00:00:00 2022-11-24 00:00:00 LANDON Sullivan: [address] [place] [phone] , Ph. [facility] [id number] [facility] 2022-11-10 15:30:00 2022-11-10 15:30:00 Outpatient NAA CORREA [facility] [id number] [facility] 2022-11-02 00:00:00 2022-11-02 00:00:00 Patient Outreach Jayna Rizvi [id number] [facility] 2022-10-30 00:00:00 2022-10-30 00:00:00 Outpatient GC_BAHC_Tod d_J PRIV PRIV [id number] [facility] 2022-10-30 00:00:00 2022-10-30 00:00:00 Outpatient GC_BAHC_Tod d_J PRIV PRIV [id number] [facility] 2022-10-30 00:00:00 2022-10-30 00:00:00 Outpatient GC_BAHC_Tod d_J PRIV PRIV [id number] [facility] 2022-10-29 00:00:00 2022-10-29 00:00:00 Outpatient GC_BAHC_Tod d_J PRIV PRIV [id number] [facility] 2022-10-29 00:00:00 2022-10-29 00:00:00 Outpatient GC_BAHC_Tod d_J PRIV PRIV [id number] [facility] 2022-10-16 00:00:00 2022-10-16 00:00:00 LANDON Sullivan: [address] [place] [phone] , Ph. Critical access hospital - GC_BAHC_[facility] [id number] [facility] 2022-10-09 00:00:00 2022-10-09 00:00:00 LANDON Sullivan: [address] [place] [phone] , Ph. Critical access hospital - GC_BAHC_[facility] [id number] [facility] 2022-10-03 00:00:00 2022-10-03 00:00:00 Outpatient GC_BAHC_Tod d_J PRIV PRIV [id number] [facility] 2022-10-03 00:00:00 2022-10-03 00:00:00 Outpatient GC_BAHC_Tod d_J PRIV PRIV [id number] [facility] 2022-10-03 00:00:00 2022-10-03 00:00:00 Outpatient GC_BAHC_Tod d_J PRIV PRIV [id number] [facility] 2022-10-03 00:00:00 2022-10-03 00:00:00 Outpatient GC_BAHC_Tod d_J PRIV PRIV [id number] [facility] 2022-10-03 00:00:00 2022-10-03 00:00:00 Outpatient GC_BAHC_Tod d_J PRIV PRIV [id number] [facility] 2022-10-03 00:00:00 2022-10-03 00:00:00 Outpatient GC_BAHC_Tod d_J PRIV PRIV [id number] [facility] 2022-09-29 00:00:00 2022-09-29 00:00:00 Outpatient GC_BAHC_Tod d_J PRIV PRIV [id number] [facility] 2022-09-29 00:00:00 2022-09-29 00:00:00 Outpatient GC_BAHC_Tod d_J PRIV PRIV [id number] [facility] 2022-09-29 00:00:00 2022-09-29 00:00:00 Outpatient GC_BAHC_Tod d_J PRIV PRIV [id number] [facility] 2022-09-29 00:00:00 2022-09-29 00:00:00 Pino Almeida MD: [address] [place] [phone] , Ph. Critical access hospital - GC[facility]HC[facility] [id number] [facility] 2022-09-25 10:30:00 2022-09-25 10:47:39 Outpatient R DEE DEE ESQUIVEL [facility] [id number] [facility] 2022-09-25 10:30:00 2022-09-25 10:47:39 Office Visit Dee Dee Esquivel [facility] 1..840.114 350.1.13.10 4.2.7.2.686 [id number] [facility] 2022-09-23 00:00:00 2022-09-23 00:00:00 Patient Outreach Ileana Szymanski 1..840.114 350.1.13.10 4.2.7.2.686 [id number] [facility] 2022-09-22 00:00:00 2022-09-22 00:00:00 LANDON Sullivan: [address] [place] [phone] , Ph. [facility] GC_BAHC_[facility] [id number] [facility] 2022-09-21 00:00:00 2022-09-21 00:00:00 Outpatient GC_BAHC_Tod d_J [facility] [id number] [facility] 2022-09-20 00:00:00 2022-09-20 00:00:00 Outpatient GC[facility]BAHC_Tod d_J [facility] [id number] [facility] 2022-09-15 00:00:00 2022-09-15 00:00:00 LANDON Sullivan: [address] [place] [phone] , Ph. [facility] GC_BAHC_[facility] [id number] [facility] 2022-09-10 13:00:00 2022-09-10 13:19:43 Outpatient R NAA LAMB [facility] [id number] [facility] 2022-09-10 13:00:00 2022-09-10 13:19:43 Office Visit Naa Lamb [facility] N[facility] 1..840.114 350.1.13.10 4.2.7.2.686 [id number] [facility] 2022-09-10 00:00:00 2022-09-10 00:00:00 Patient Secure Msg Doctor Unassigned, [place] [facility] 1.114 350.1.13.10 4.2.7.2.686 [id number] [facility] 2022-09-10 00:00:00 2022-09-10 00:00:00 Orders Only Doctor Unassigned, [place] [facility] 1.114 350.1.13.10 4.2.7.2.686 [id number] [facility] 2022-09-09 00:00:00 2022-09-09 00:00:00 Outpatient GC_BAHC_Tod d_J [facility] [id number] [facility] 2022-09-08 00:00:00 2022-09-08 00:00:00 LANDON Sullivan: [address] [place] [phone] , Ph. Critical access hospital - GC_BAHC_[facility] [id number] [facility] 2022-09-04 12:11:00 2022-09-04 23:59:00 Outpatient BLAIR YANG HOWARD [facility] [id number] [facility] 2022-09-04 12:11:00 2022-09-04 23:59:00 Hospital Encounter Blair Ervin [facility] 1..114 350.1.13.10 4.2.7.2.686 [id number] [facility] 2022-09-04 00:00:00 2022-09-04 00:00:00 Orders Only Doctor Unassigned, [place] [facility] 1..114 350.1.13.10 4.2.7.2.686 [id number] [id number] [facility] 2022-08-29 00:00:00 2022-08-29 00:00:00 Patient Secure Msg Doctor Unassigned, [place] [facility] 1.20.114 350.1.13.10 4.2.7.2.686 [id number] [facility] 2022-08-21 11:30:00 2022-08-21 11:45:00 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 1.84.114 350.1.13.10 4.2.7.2.686 [id number] [facility] 2022-08-21 09:00:00 2022-08-21 10:20:54 Outpatient BLAIR YANG HOWARD [facility] [id number] [facility] 2022-08-21 09:00:00 2022-08-21 10:20:54 Office Visit [facility] 1.84.114 350.1.13.10 4.2.7.2.686 [id number] [facility] 2022-08-21 00:00:00 2022-08-21 00:00:00 Orders Only Doctor Unassigned, [place] [facility] 1.2.114 350.1.13.10 4.2.7.2.686 [id number] [facility] 2022-08-11 00:00:00 2022-08-11 00:00:00 Patient Outreach Ileana Szymanski 1.2.114 350.1.13.10 4.2.7.2.686 [id number] [facility] 2022-07-30 13:00:00 2022-07-30 13:00:00 Outpatient PETROS DELEON [facility] [id number] [facility] 2022-07-23 00:00:00 2022-07-23 00:00:00 Patient Outreach Jayna Rizvi TRIXIE DAVIS 1.2.840.114 350.1.13.10 4.2.7.2.686 [id number] [facility] 2022-07-21 00:00:00 2022-07-21 00:00:00 Orders Only Doctor Unassigned, [place] [facility] 1.2.840.114 350.1.13.10 4.2.7.2.686 [id number] [facility] 2022-06-27 00:00:00 2022-06-27 00:00:00 Orders Only Doctor Unassigned, [place] [facility] 1.2.840.114 350.1.13.10 4.2.7.2.686 [id number] [facility] 2022-06-11 00:00:00 2022-06-11 00:00:00 Patient Outreach Rosana Szymanskishireen Luong TRIXIE DAVIS 1.2.840.114 350.1.13.10 4.2.7.2.686 [id number] [facility] 2022-06-09 00:00:00 2022-06-09 00:00:00 Patient Outreach DmitriJayna Cherise DAVIS 1.2.840.114 350.1.13.10 4.2.7.2.686 [id number] [facility] 2022-06-04 00:00:00 2022-06-04 00:00:00 Patient Outreach Zak Spears 1.2.840.114 350.1.13.10 4.2.7.2.686 [id number] [facility] 2022-05-29 00:00:00 2022-05-29 00:00:00 Patient Outreach Zak Spears 1.2.840.114 350.1.13.10 4.2.7.2.686 [id number] [facility] 2022-05-25 00:00:00 2022-05-25 00:00:00 Patient Outreach Zak Spears 1.2.840.114 350.1.13.10 4.2.7.2.686 [id number] [facility] 2022-05-22 00:00:00 2022-05-22 00:00:00 Patient Outreach Jayna Rizvi 1.2.840.114 350.1.13.10 4.2.7.2.686 [id number] [facility] 2022-05-20 00:00:00 2022-05-20 00:00:00 Patient Outreach Zak Spears 1.2.840.114 350.1.13.10 4.2.7.2.686 [id number] [facility] 2022-05-19 10:00:00 2022-05-19 11:00:00 Patient Outreach Jayna Rizvi 1.2.840.114 350.1.13.10 4.2.7.2.686 [id number] [facility] 2022-05-18 00:00:00 2022-05-18 00:00:00 Patient Outreach Jayna Rizvi 1.2.840.114 350.1.13.10 4.2.7.2.686 [id number] [facility] 2022-05-15 00:00:00 2022-05-15 00:00:00 Patient Outreach Jayna Rizvi 1.2.840.114 350.1.13.10 4.2.7.2.686 [id number] [facility] 2022-05-11 00:00:00 2022-05-11 00:00:00 Patient Outreach Darlene Alvarez 1.2.840.114 350.1.13.10 4.2.7.2.686 [id number] [facility] 2022-05-08 00:00:00 2022-05-08 00:00:00 Transition of Care Nidia George 1.2.840.114 350.1.13.10 4.2.7.2.686 [id number] [facility] 2022-05-06 00:00:00 2022-05-06 00:00:00 Patient Outreach Darlene Alvarez 1.2.840.114 350.1.13.10 4.2.7.2.686 [id number] [facility] 2022-05-04 00:00:00 2022-05-04 00:00:00 Transition of Care Nidia George 1.2.840.114 350.1.13.10 4.2.7.2.686 [id number] [facility] 2022-05-02 11:45:00 2022-05-02 16:29:00 Emergency X ALICIA TALLEY [facility] ERT [id number] [facility] 2022-05-02 11:45:00 2022-05-02 16:29:00 Emergency Alicia Talley [facility] 1.2.840.114 350.1.13.10 4.2.7.2.686 [id number] [facility] 2022-04-29 16:35:00 2022-05-01 18:23:00 Inpatient X DANIEL KUNZ [facility] [id number] [facility] 2022-04-29 16:35:00 2022-05-01 18:23:00 Hospital Encounter Bernardo Rodríguez [place], Dalton Shirley , [facility], Daniel K Dick, Petar PompaSivakumar [facility] 1.2.840.114 350.1.13.10 4.2.7.2.686 [id number] [facility] 2022-04-28 18:09:00 2022-04-28 21:49:00 Emergency X BERNARDO RODRÍGUEZ [facility] ERT [id number] [facility] 2022-04-28 18:09:00 2022-04-28 21:49:00 Emergency Bernardo Rodríguez [facility] 1.2.840.114 350.1.13.10 4.2.7.2.686 [id number] [facility] Results Test Description Test Time Test Comments Results Result Co mments Source TSH, THIRD [id number] 04:48:56* Test Item Value Reference Range Interpretation Comme nts TSH, THIRD GENERATION (test code = 2821) 0.698 UIU/ML 0.400-4.100 PSA, [id number] 04:48:56* Test Item Value Reference Range Interpretation Comme nts PSA, TOTAL (test code = 2606) 2.51 NG/ML See_Comment NOTE: Methodolog y is Zuleika Jayashree Electrochemiluminescence Immunoassay traceable to WHO reference standard 96/760. UNLESS OTHERWISE INDICATED, ALL TESTING PERFORMED [facility] [address] [place] [address] BEAUTY CULTURIST: KODI TRIANA M.D. CLIA NUMBER [id number] [facility] [place]. [id number] [Automated message] The system which generated this result transmitted reference range: <=4.00. The reference range was not used to interpret this result as normal/abnormal. LIPID [id number] 04:23:44* Test Item Value Reference Range Interpretation [...] SPECIMENS. FOR MOREINFORMATION, SEE CLIENT ANNOUNCEMENT AT [email or web address] RISK RATIO LDL/HDL (test code = 2237) 2.87 RATIO <3.55 COMPREHENSIVE METABOLIC [id number] 04:23:44* Test Item Value Reference Range Interpretation Comme nts GLUCOSE (test code = 2216) 89 MG/DL 70-99 BUN (test code = 2207) 14 MG/DL 8-23 CREATININE (test code = 2213) 0.85 MG/DL 0.80-1.40 eGFR (2020 CKD-EPI) (test code = 37388) 93 ML/MIN/1.73 >60 CALC BUN/CREAT (test code = 2235) 16 RATIO 6-28 SODIUM (test code = 2230) 147 MEQ/L 133-146 H POTASSIUM (test code = 2228) 4.2 MEQ/L 3.5-5.4 CHLORIDE (test code = 2215) 107 MEQ/L 95-107 CARBON DIOXIDE (test code = 2206) 28 MEQ/L 19-31 CALCIUM (test code = 220) 9.9 MG/DL 8.5-10.5 PROTEIN, TOTAL (test code = 2228) 8.0 G/DL 6.1-8.3 ALBUMIN (test code = 2200) 4.7 G/DL 3.5-5.2 CALC GLOBULIN (test code = 2240) 3.3 G/DL 1.9-3.7 CALC A/G RATIO (test code = 223) 1.4 RATIO 1.0-2.6 BILIRUBIN, TOTAL (test code = 2206) 0.9 MG/DL See_Comment [Automated me ssage] The system which generated this result transmitted reference range: <=1.2. The reference range was not used to interpret this result as normal/abnormal. ALKALINE PHOSPHATASE (test code = 2203) 94 U/L 40-125 AST (test code = 2218) 21 U/L 9-50 ALT (test code = 2219) 19 U/L 5-50 HEMOGLOBIN [id number] 03:10:09* Test Item Value Reference Range Interpretation Comme nts HEMOGLOBIN A1c (test code = 90043) 5.5 % 4.2-5.6 CBC W/AUTO DIFF WITH [id number] 01:57:11* Test Item Value Reference Range Interpretation [...] = 1065) 0.0 /100 WBC'S See_Comment [Automated Skim.ita ge] The system which generated this result [...] 0.00-0.10 ABS NUCLEATED RBCS (test code = 56037) 0.00 K/UL 0.00-0.11 Lactic Acid Whole [id number] 17:48:24* Test Item Value Reference Range Interpretation Comme nts LACTIC ACID (test code = 7174260163) 1.59 mmol/L 0.50-2.20 Lab Interpretation (test cod e = 64254-8) Normal [facility] METABOLIC PANEL (NA, K, CL, CO2, GLUCOSE, BUN, CREATININE, CA)2022-05-01 06:55:06* Test Item Value Reference Range Interpretation Comme nts NA (test code = 9052899698) 140 mmol/L 135-145 K (test code = 7512380803) 3.9 mmol/L 3.5-5.0 CL (test code = 7402490443) 111 mmol/L 98-108 H CO2 TOTAL (test code = 7590328429) 24 mmol/L 23-31 AGAP (test code = 7917966481) 2-16 BUN (test code = 2418571319) 25 mg/dL 7-23 H GLUCOSE (test code = 6227106002) 86 mg/dL 70-110 CREATININE (test code = 8344555431) 0.64 mg/dL 0.60-1.25 CALCIUM (test code = 6166939275) 8.0 mg/dL 8.6-10.6 L eGFR (test code = 8720797651) mL/min/1.73m2 NEYMAR (test code = NEYMAR) Association [...] imaging tests). Lab Interpretation (test code = 36649-3) [facility] 06:55:06* Test Item Value Reference Range Interpretation Comme nts MAGNESIUM (test code = 3000879455) 1.9 mg/dL 1.7-2.4 Lab Interpretation (test cod e = 85978-4) [facility] 06:55:06* Test Item Value Reference Range Interpretation Comme nts PHOSPHORUS (test code = 3567316667) 2.5 mg/dL 2.5-5.0 Lab Interpretation (test cod e = 29088-7) [facility]E)2022-04-30 20:28:01* Test Item Value Reference Range Interpretation Comme nts Height (test code = 1591190761) in Weight (test code = 0532563525) lbs Systolic BP (test code = 1558675786) mmHg Diastolic BP (test code = 4582407408) mmHg Heart Rate (test code = 1702434217) bpm LVOT stroke volume (test code = 6891644845) 47.40 cm3 EF(Teich) (test code = 0299658573) 63.50 % LVIDD (test code = 6214881026) 5.20 cm LVIDS (test code = 5328542973) 3.40 cm IVS (test code = 3201225447) 1.24 cm LVPWD (test code = 1145312410) 1.21 cm LVOT diameter (test code = 3212199625) 2.29 cm FS (test code = 2561663673) 35 % MV Peak E Jovon (test code = 2770031455) 65.6 cm/s E wave decelartion time (test code = 6001463994) 0.19 s LVOT peak jovon (test code = 2014411686) 65.1 cm/s LVOT mn grad (test code = 2647637499) mmHg LA size (test code = 9898904797) 3.6 cm Aortic valve mean velocity (test code = 9899862685) 73.8 cm/s Ao peak jovon (test code = 5553787513) 115.8 cm/s Ao VTI (test code = 8806803850) 17.4 cm AV LVOT peak gradient (test code = 5302353328) mmHg LVOT peak VTI (test code = 0503958517) 11.5 cm AV area by cont VTI (test code = 6055346673) 2.7 cm2 AV area peak jovon (test code = 5862225970) 2.3 cm2 LV V1 mean (test code = 7661078011) 40.20 cm/s Ao max PG (test code = 6082428600) 5.40 mm[Hg] MV Prop V (test code = 8814542782) 54.90 cm/s Ao root annulus (test code = 4308040443) 3.4 cm Ao root diam (test code = 2134913274) 3.40 cm AV peak gradient (test code = 7935484742) mmHg AV valve area (test code = 7310850287) 2.70 cm2 AV mean gradient (test code = 3643305511) mmHg Aortic root (test code = 6101192349) 3.4 cm PW (test code = 0439626303) 1.21 cm 0.6-1.1 EF - 2D (test code = 39387008) 63.50 % Interventricular Septum Diastolic Thickness by 2D (test code = 4640053) 1.24 cm BSA (test code = 6281409835) 1.84 m2 Radiology Study observation (narrative) (test code = 43047-4) NEYMAR (test code = NEYMAR) ?Left?Ventricle: There is mild concentric hypertrophy. Normal wall motion. Normal systolic function with a visually estimated EF of 55 - 60%. Septal motion is normal. Diastolic dysfunction, cannot be graded due to Afib ?Pulmonic?Valve: Pulmonic valve is normal in structure and function. ?Tricuspid?Valve: Tricuspid valve structure is normal. ?Aortic?Valve: No hemodynamically significant . [facility] (A1C)2022-04-30 16:26:24* Test Item Value Reference Range Interpretation Comme nts HGB A1C (test code = 4548-4) 5.5 % 4.0-5.7 NEYMAR (test code = NEYMAR) Reference RangesNormal: <5.7%Prediabetes: 5.7 - 6.4%Diabetes: > 6.5% Lab Interpretation (test code = 95478-6) [facility] (NA, K, CL, CO2, GLUCOSE, BUN, CREATININE, CA)2022-04-30 16:15:38* Test Item Value Reference Range Interpretation Comme nts NA (test code = 2497290087) 144 mmol/L 135-145 K (test code = 2698184136) 4.1 mmol/L 3.5-5.0 CL (test code = 7239830512) 113 mmol/L 98-108 H CO2 TOTAL (test code = 2086232683) 28 mmol/L 23-31 AGAP (test code = 3321321972) 2-16 BUN (test code = 0290297408) 31 mg/dL 7-23 H GLUCOSE (test code = 6934063406) 142 mg/dL 70-110 H CREATININE (test code = 9355707462) 0.65 mg/dL 0.60-1.25 CALCIUM (test code = 7708396826) 8.4 mg/dL 8.6-10.6 L eGFR (test code = 1594356053) mL/min/1.73m2 NEYMAR (test code = NEYMAR) Association [...] imaging tests). Lab Interpretation (test code = 85686-1) [facility]20[facility]-07 16:15:38* Test Item Value Reference Range Interpretation Comme nts MAGNESIUM (test code = 2571052374) 2.1 mg/dL 1.7-2.4 Lab Interpretation (test cod e = 89196-2) Normal [facility] (for use with Heparin Infusion)2022-04-30 13:43:36* Test Item Value Reference Range Interpretation Comme nts APTT Patient (test code = 3173-2) See_Comment H [Automated Skim.ita Correlec] The system which generated this result transmitted reference range: 26 - 36 Seconds. The reference range was not used to interpret this result as normal/abnormal. Lab Interpretation (test code = 56163-4) [facility] [id number] 06:04:45* Test Item Value Reference Range Interpretation Comme nts FREE T3 (test code = 9728862396) 2.48 pg/mL 2.77-5.27 L Lab Interpretation (test cod e = 41597-9) Abnormal [facility] HospitalProthrombin Time / [id number] 05:58:05* Test Item Value Reference Range Interpretation Comme nts PROTIME PATIENT (test code = 5964-2) See_Comment H [Automated [employer]] The system which generated this result transmitted reference range: 10.1 - 12.6 Seconds. The reference range was not used to interpret this result as normal/abnormal. INR (test code = 6301-6) Normal INR <1.1; Warfarin Therapeutic range 2.0 to 3.0 or 2.5 to 3.5, depending upon the indications. Lab Interpretation (test code = 41294-4) [facility]normal [facility]2022-07-07 05:58:05* Test Item Value Reference Range Interpretation Comme nts APTT Patient (test code = 3173-2) See_Comment [Automated Skim.ita ge] The system which generated this result transmitted reference range: 26 - 36 Seconds. The reference range was not used to interpret this result as normal/abnormal. Lab Interpretation (test code = 76823-7) Normal [facility] HospitalLIPID PANEL (13129)(TOTAL CHOLESTEROL, TRIGLYCERIDES, HDL)2022-04-30 05:46:07* Test Item Value Reference Range Interpretation Comme nts CHOL (test code = 9956729027) 180 mg/dL 120-200 HDL (test code = 8470172873) 30 mg/dL >40 L HDLC RATIO (test code = 4393107163) See_Comment H [Automated Skim.ita ge] The system which generated this result transmitted reference range: <=5.0. The reference range was not used to interpret this result as normal/abnormal. TRIG (test code = 9289562034) 104 mg/dL 30-170 LDL CHOL (test code = 85694-1) 129 mg/dL See_Comment [Automated Skim.ita ge] The system which generated this result transmitted reference range: <=160. The reference range was not used to interpret this result as normal/abnormal. VLDL (test code = 6563168148) 21 mg/dL 5-60 Lab Interpretation (test code = 51042-6) [facility]2022-[facility]-07 05:46:07* Test Item Value Reference Range Interpretation Comme nts MAGNESIUM (test code = 3713226862) 2.2 mg/dL 1.7-2.4 Lab Interpretation (test cod e = 66661-1) Normal [facility] HospitalCREATINE [id number] 05:46:07* Test Item Value Reference Range Interpretation Comme nts CK (test code = 6344109991) 47 U/L 33-194 Lab Interpretation (test cod e = 71950-5) Normal [facility] HospitalOSMOLALITY, SERUM OR [id number] 05:45:32 * Test Item Value Reference Range Interpretation Comme nts OSMOLALITY (test code = 2692-2) See_Comment HH [Automated messa ge] The system which generated this result transmitted reference range: 278 - 305 mOsm/kg. The reference range was not used to interpret this result as normal/abnormal. Lab Interpretation (test code = 63332-7) Abnormal [facility] HospitalTHYROID STIMULATING [id number] 03:23:38 * Test Item Value Reference Range Interpretation Comme nts TSH (test code = 2116710505) See_Comment L Biotin has been reported to cause a negative bias, interpret results relative to patient's use of biotin. [Automated message] The system which generated this result transmitted reference range: 0.45 - 4.70 mIU/L. The reference range was not used to interpret this result as normal/abnormal. Lab Interpretation (test code = 37204-7) Abnormal [facility] HospitalTroponin [id number] 00:18:11* Test Item Value Reference Range Interpretation Comments TROPONIN I (test code = 2548658211) 0.010 ng/mL See_Comment [Automated message] The system [...] of biotin. Lab Interpretation (test code = 22291-8) [id number] 00:18:11* Test Item Value Reference Range Interpretation Comme nts NT-proBNP (test code = 1448531000) 1070 pg/mL See_Comment H [Automated message] The system which generated this result transmitted reference range: <=125. The reference range was not used to interpret this result as normal/abnormal. NEYMAR (test code = NEYMAR) Biotin has been reported to cause a negative bias, interpret results relative to patient's use of biotin. Lab Interpretation (test code = 73978-2) [facility]04:30* Test Item Value Reference Range Interpretation Comme nts NA (test code = 8833520609) 152 mmol/L 135-145 H K (test code = 5224208166) 3.9 mmol/L 3.5-5.0 CL (test code = 9546492623) 119 mmol/L 98-108 H CO2 TOTAL (test code = 3628977517) 21 mmol/L 23-31 L AGAP (test code = 1076427140) 2-16 BUN (test code = 9320208056) 37 mg/dL 7-23 H GLUCOSE (test code = 3898437345) 112 mg/dL 70-110 H CREATININE (test code = 9310872276) 1.25 mg/dL 0.60-1.25 TOTAL BILI (test code = 2341172436) 1.3 mg/dL 0.1-1.1 H CALCIUM (test code = 0014965257) 9.2 mg/dL 8.6-10.6 T PROTEIN (test code = 0546986053) 7.5 g/dL 6.3-8.2 ALBUMIN (test code = 1403539851) 4.4 g/dL 3.5-5.0 ALK PHOS (test code = 8996929028) 96 U/L 34-122 ALTv (test code = 1742-6) 21 U/L 5-50 AST(SGOT) (test code = 1134821879) 21 U/L 13-40 eGFR (test code = 6613203562) mL/min/1.73m2 NEYMAR (test code = NEYMAR) Association [...] imaging tests). Lab Interpretation (test code = 91933-5) Abnormal [facility] with [id number] 23:40:41* Test Item Value Reference Range Interpretation Comme nts WBC (test code = 6690-2) See_Comment H [Automated [employer]] The system which generated this result transmitted reference range: 4.20 - 10.70 10*3/?L. The reference range was not used to interpret this result as normal/abnormal. RBC (test code = 789-8) See_Comment [Hmizate.ma] The system which generated this result transmitted [...] 34.3 g/dL 31.2-35.0 RDW-SD (test code = 02169-6) 50.5 fL 38.5-51.6 RDW-CV (test code = 788-0) 14.7 % 12.1-15.4 PLT (test code = 777-3) See_Comment [Automated messa ge] The system which generated this result transmitted reference range: 150 - 328 10*3/?L. The reference range was not used to interpret this result as normal/abnormal. MPV (test code = 21108-6) 11.5 fL 9.8-13.0 NRBC/100 WBC (test code = 2094777092) See_Comment [Automated Vidmind ssage] The system which generated this result transmitted reference range: 0.0 - 10.0 /100 WBCs. The reference range was not used to interpret this result as normal/abnormal. NRBC x10^3 (test code = 0369347597) <0.01 See_Comment [Automated messa ge] The system which generated this result transmitted reference range: 10*3/?L. The reference range was not used to interpret this result as normal/abnormal. GRAN MAT (NEUT) % (test code = 770-8) 78.4 % IMM GRAN % (test code = 8415646537) 0.50 % LYMPH % (test code = 736-9) 9.5 % MONO % (test code = 5905-5) 11.0 % EOS % (test code = 713-8) 0.3 % BASO % (test code = 706-2) 0.3 % GRAN MAT x10^3(ANC) (test code = 0940473864) 9.11 10*3/uL 1.99-6.95 H IMM GRAN x10^3 (test code = 3705713525) 0.06 10*3/uL 0.00-0.06 LYMPH x10^3 (test code = 731-0) 1.10 10*3/uL 1.09-3.23 MONO x10^3 (test code = 742-7) 1.28 10*3/uL 0.36-1.02 H EOS x10^3 (test code = 711-2) 0.04 10*3/uL 0.06-0.53 L BASO x10^3 (test code = 704-7) 0.04 10*3/uL 0.01-0.09 Lab Interpretation (test code = 83299-1) [facility] 00:50:12* Test Item Value Reference Range Interpretation Comments TROPONIN I (test code = 0987771848) 0.007 ng/mL See_Comment [Automated message] The system [...] of biotin. Lab Interpretation (test code = 08755-5) [facility]-DHC0735-40-06 00:50:12* Test Item Value Reference Range Interpretation Comme nts NT-proBNP (test code = 6264423373) 1120 pg/mL See_Comment H [Automated message] The system which generated this result transmitted reference range: <=125. The reference range was not used to interpret this result as normal/abnormal. NEYMAR (test code = NEYMAR) Biotin has been reported to cause a negative bias, interpret results relative to patient's use of biotin. Lab Interpretation (test code = 45303-3) [facility] (NA, K, CL, CO2, GLUCOSE, BUN, CREATININE, CA)2022-04-29 00:39:11* Test Item Value Reference Range Interpretation Comme nts NA (test code = 2589397433) 150 mmol/L 135-145 H K (test code = 7141348016) 4.0 mmol/L 3.5-5.0 CL (test code = 0294158151) 117 mmol/L 98-108 H CO2 TOTAL (test code = 4754871328) 20 mmol/L 23-31 L AGAP (test code = 4986279489) 2-16 BUN (test code = 7469365380) 23 mg/dL 7-23 GLUCOSE (test code = 1965379137) 105 mg/dL 70-110 CREATININE (test code = 9816151220) 0.89 mg/dL 0.60-1.25 CALCIUM (test code = 7743573425) 8.9 mg/dL 8.6-10.6 eGFR (test code = 7565140320) mL/min/1.73m2 NEYMAR (test code = NEYMAR) Association [...] imaging tests). Lab Interpretation (test code = 67979-5) [facility] (ALB, T.PRO, BILI T, BU/BC, ALT, AST, ALK PHOS)2022-04-29 00:39:11* Test Item Value Reference Range Interpretation Comme nts TOTAL BILI (test code = 7961589354) 1.3 mg/dL 0.1-1.1 H BILI UNCON (test code = 9990358379) 1.0 mg/dL 0.1-1.1 BILI CONJ (test code = 4781773737) 0.0 mg/dL 0.0-0.3 T PROTEIN (test code = 4966985698) 7.6 g/dL 6.3-8.2 ALBUMIN (test code = 8672060072) 4.2 g/dL 3.5-5.0 ALK PHOS (test code = 9379709572) 108 U/L 34-122 ALTv (test code = 1742-6) 25 U/L 5-50 AST(SGOT) (test code = 9479708415) 27 U/L 13-40 Lab Interpretation (test cod e = 13548-8) [facility] HospitalLipase Ligpg8812-50-30 00:39:11* Test Item Value Reference Range Interpretation Comme nts LIPASE (test code = 1864269100) 67 U/L 0-220 Lab Interpretation (test cod e = 77646-7) [facility] with Riovxlvcjipo1824-00-24 00:26:53* Test Item Value Reference Range Interpretation Comme nts WBC (test code = 6690-2) See_Comment [Automated Skim.ita Correlec] The system which generated this result transmitted reference range: 4.20 - 10.70 10*3/?L. The reference range was not used to interpret this result as normal/abnormal. RBC (test code = 789-8) See_Comment [Automated Skim.ita Correlec] The system which generated this result transmitted [...] 34.5 g/dL 31.2-35.0 RDW-SD (test code = 60190-7) 50.3 fL 38.5-51.6 RDW-CV (test code = 788-0) 14.6 % 12.1-15.4 PLT (test code = 777-3) See_Comment [Automated Skim.ita ge] The system which generated this result transmitted reference range: 150 - 328 10*3/?L. The reference range was not used to interpret this result as normal/abnormal. MPV (test code = 96092-1) 11.0 fL 9.8-13.0 NRBC/100 WBC (test code = 9915011123) See_Comment [Automated Vidmind ssage] The system which generated this result transmitted reference range: 0.0 - 10.0 /100 WBCs. The reference range was not used to interpret this result as normal/abnormal. NRBC x10^3 (test code = 2925014524) <0.01 See_Comment [Automated Skim.ita ge] The system which generated this result transmitted reference range: 10*3/?L. The reference range was not used to interpret this result as normal/abnormal. GRAN MAT (NEUT) % (test code = 770-8) 65.4 % IMM GRAN % (test code = 7546823712) 0.20 % LYMPH % (test code = 736-9) 16.9 % MONO % (test code = 5905-5) 14.2 % EOS % (test code = 713-8) 2.6 % BASO % (test code = 706-2) 0.7 % GRAN MAT x10^3(ANC) (test code = 3783688735) 5.37 10*3/uL 1.99-6.95 IMM GRAN x10^3 (test code = 3655882929) <0.03 0.00-0.06 LYMPH x10^3 (test code = 731-0) 1.39 10*3/uL 1.09-3.23 MONO x10^3 (test code = 742-7) 1.17 10*3/uL 0.36-1.02 H EOS x10^3 (test code = 711-2) 0.21 10*3/uL 0.06-0.53 BASO x10^3 (test code = 704-7) 0.06 10*3/uL 0.01-0.09 Lab Interpretation (test code = 88192-0) Abnormal [facility] Notes Date/Time Note Provider Source 2023-07-13 09:00:10 q6ABlf57J8S5z9rTA5QF 1lzsq4TwBv/+/ 9zY54FO87nzL0KaXV3a9MkjDOudWO5175-7 09:00:10 I contacted pt on 07/13/23 to schedule EP appt and echo -- pt is scheduled on 08/05/23. 80414-9Uenyhyxcl encounter SggtSN8285-76-22O63:02:24Telephone encounter NoteTXT1.2.840.560435.1.13.104.2.7. 2.754827|[id number] for patient ytoq63325-2ZsfcIS678381424Krzmajif McCree[address] WkheQn[id number] 8CLZCNFATOMRVXJLVDFNODB5452-58-74Q5 9:02:241.2.840.738951.1.72.3.15|1.2 .840.865484.1.13.104.2.7.2.727879_1 [id number] Naseem Hsu [facility] 2023-07-13 08:43:22 VJkaWfPvIaroBtJFjy7L t219HpQsliimAJj +/zaf+DL8l2B8d7nJyip3FG6Qv9Qw3520-0 08:43:22 This case, recommended EP evaluation for ILR placement. Please also plan for echocardiogram on the same day as the EP visit. Referral placed. Please schedule 22964-8Jjosemucl encounter OspiRL3709-72-80N05:44:24Telephone encounter NoteTXT1.2.840.868913.1.13.104.2.7. 2.789557|[id number] for patient torv90722-9DdbcQAESNHULCD[id number] 1PYETRAVVJMIWYKEJTQRLJI3160-00-95X0 8:44:241.2.840.330890.1.72.3.15|1.2 .840.071732.1.13.104.2.7.2.727879_1 [id number] [facility] 2023-07-12 16:11:50 vFRTSX5PE3N5Sx6SHIvd QvHyf7+O4CyvZon LaidH6h8JXwF0j/u/S6htt74lgSAe0939-3 07-12T16:11:50 Spoke with nursing at the [facility] [phone] . They are able to do the monitors but stated that the patient has frequent moments of belligerence and pulls everything off. They do not think he will agree to wearing it.Routed to Dr Lamb for advice 98003-1Xbwtxqmmg encounter IkhlVI3985-46-26M39:20:14Telephone encounter NoteTXT1.2.840.374520.1.13.104.2.7. 2.049552|[id number] for patient plej27573-0CbihFN587163539Qqosz A Roller RN[id number] 7XJBAWAJEEVLSCRDXWVWFQH0548-73-98C8 6:20:141.2.840.922074.1.72.3.15|1.2 .840.163833.1.13.104.2.7.2.727879_1 [id number] Elisha Navarrete RN [facility] 2023-07-12 14:43:57 CPtxdym+kqYFIE+xjsW1 TSNLhCVgZGLbSJo /iZZnBrYWTX2li18Vp5sksXGYeCWQ4817-6 4:43:57 Patient is currently in [facility]. Patient with history of atrial fibrillation along with syncopal episodes. Please reach out to the nursing rubber goods supervisor [facility] to see if we can do 30-day event monitor. If so, we need to place the monitor. Orders placed. 33920-6Rgmtafiep encounter NfegPE0263-66-54R24:47:03Telephone encounter NoteTXT1.2.840.848419.1.13.104.2.7. 2.016723|[id number] for patient wauu41457-8ZkqhMCVHQRGOMG[address] Vonl[id number] 0ZDDHUXVYFYIUNCGRXFTFFF8379-52-37S1 4:47:031.2.840.743617.1.72.3.15|1.2 .840.785290.1.13.104.2.7.2.727879_1 [id number] [facility] 2023-07-12 14:43:51 Sh+dT0Eul2VpFs17meLd vwIcQpPpo/KTh+0 gZRDmMrnXAKSrl8uW6IpTUFoWNdqF5322-2 4:43:51 ----- Message from Naa Lamb MD sent at 06/22/2023 12:44 PM CDT -----Reach to [facility] to see if they can do a 30-day event monitor. 79442-0Afhhrsusm encounter ZowoQJ5728-55-26N10:43:51Telephone encounter NoteTXT1.2.840.447411.1.13.104.2.7. 2.642149|[id number] for patient tuvr17970-7DakzSXZLEYJMNT[address] XeixE[id number] 0UOMAAHCMRJIFHBEKGKMZBN9472-22-06P8 4:43:511.2.840.989324.1.72.3.15|1.2 .840.576114.1.13.104.2.7.2.727879_1 [id number] [facility]"
[2024-01-06] MEDS ORDERED: METOCLOPRAMIDE 10 MG/2mL INJ ONE (15:11)
[2024-01-06] MEDS ORDERED: MORPHINE 2 MG/ML SYR ONE (15:12)
--- NOTE | 2024-01-06 15:23 | RAD REPORT ---
EXAM DESCRIPTION: RAD - Femur Left - 01/06/2024 3:13 pm CLINICAL HISTORY: PAIN COMPARISON: <Comparisons> FINDINGS: Mild atherosclerosis. Cortical step-off is noted of the junction of the proximal left femu r head and neck suggesting impacted fracture. No dislocation.
--- NOTE | 2024-01-06 15:23 | RAD REPORT ---
EXAM DESCRIPTION: RAD - Pelvis - 01/06/2024 3:13 pm CLINICAL HISTORY: pain, fall COMPARISON: Femur Left dated 01/06/2024 FINDINGS: Cortical step-off is noted at the junction of the head and neck region of the proximal lef t femur. This is suspicious for impacted fracture. No dislocation seen.
[2024-01-06 16:11] LABS: Absolute Basophils 0.1 K/uL (0-0.5); Absolute Eosinophils 0.3 K/uL (0-0.5); Absolute Lymphocytes (CBC) 1.3 K/uL (0.7-4.9); Absolute Monocytes 0.9 K/uL (0.1-1.3); Absolute Neutrophil 6.3 K/uL (1.8-8.0); Eosinophils % 3.7 % (0-4.4); Hematocrit 38.5 % (39.6-49.0); Hemoglobin 12.8 g/dL (13.6-17.9); Lymphocytes % 14.2 % (15.3-44.8); MCHC 33.3 g/dL (32.0-36.0); MCV 96.2 fL (80-100); MPV 9.1 fL (7.6-11.3); Monocytes % 10.4 % (3.3-12.3); Neutrophils % 70.7 % (41.7-73.7); Platelets 213 thou/uL (152-406); RBC Red Blood Cell Count 4.01 M/uL (4.33-5.43); Red Cell Distribution Width 17.1 % (12.1-15.2)
[2024-01-06 16:18] LABS: PT Prothrombin Time 14.4 SECONDS (9.5-12.5); Protime INR 1.32
--- NOTE | 2024-01-06 16:24 | RAD REPORT ---
EXAM DESCRIPTION: RAD - Chest Single View - 01/06/2024 4:17 pm CLINICAL HISTORY: fall Chest pain. COMPARISON: <Comparisons> FINDINGS: Portable technique limits examination quality. The lungs are grossly clear. The heart is normal in size. No displaced fractures. IMPRESSION: No acute intrathoracic process suspected.
--- NOTE | 2024-01-06 16:34 | RAD REPORT ---
EXAM DESCRIPTION: CT - Abdomen Pelvis Wo Contrast - 01/06/2024 4:24 pm CLINICAL HISTORY: Abdominal pain. fall, left hip pain COMPARISON: Chest Single View dated 01/06/2024; Femur Left dated 01/06/2024 TECHNIQUE: CT imaging of the abdomen and pelvis was performed without contrast. Solid organ, bowel a nd vascular assessment is limited due to lack of IV and oral contrast. All CT scans are performed using dose optimization technique as appropriate and may include automated exposure control or mA/KV adjustment according to patient size. FINDINGS: Mild linear atelectasis both posterior lung bases. The liver, spleen, pancreas, adrenal glands are within normal limits for a limited non-contrast exami nation.Punctate calculi seen both renal calices. No hydronephrosis. No bowel obstruction, free air, free fluid or abscess. Significant retained stool in the rectosigmoid colon. Mild sigmoid diverticulosis without diverticulitis. Aortoiliac atherosclerosis. The appendix is normal. Mild lumbosacral spondylosis.Mildly impacted subcapital fracture proximal left femur. IMPRESSION: Punctate bilateral nephrolithiasis without hydronephrosis. Significant stool retained rectosigmoid colon. Sigmoid diverticulosis coli. Mildly impacted subcapital left proximal femur fracture. A limited non-contrast examination was performed as detailed.
[2024-01-06 16:51] LABS: Albumin 2.6 g/dL (3.4-5.0); Albumin/Globulin Ratio 0.6 (1.1-1.8); Anion Gap 7.8 mEq/L (5.0-15.0); Bilirubin Direct 0.2 mg/dL (0-0.2); Bilirubin Indirect, Calculated 0.5 mg/dL (0.2-0.8); Bilirubin Total 0.7 mg/dL (0.2-1.0); Globulin 4.3 g/dL (2.3-3.5); Protein, Total 6.9 g/dL (6.4-8.2); Troponin High Sensitivity 32.5 pg/mL (<58.9)
[2024-01-06 16:52] LABS: Magnesium 2.1 mg/dL (1.6-2.4); Potassium 3.8 mEq/L (3.5-5.1)
--- NOTE | 2024-01-06 17:43 | EDPHYS ---
Physician Documentation [facility] Name: Donald Herron Age: 73 yrs Sex: Male : 1950 Arrival Date: 01/06/2024 Time: 14:25 Bed 13 Private MD: ED Physician Yassine Hawley HPI: 01/05 15:00 This 73 yrs old Male presents to ER via EMS with complaints of Left Hip Pain. cp 15:00 Details of fall: The patient fell from an upright position, while standing. Onset: The cp symptoms/episode began/occurred 3 day(s) ago. Associated injuries: The patient sustained left hip, painful injury. 15:00 Severity of symptoms: in the emergency department the symptoms are unchanged, despite cp EMS interventions. Historical: - Allergies: 14:58 Zofran; nj1 - PMHx: 14:58 Alzheimer's disease; Asthma; Atrial fibrillation; osteoarthritis; GERD; syncope; TIA; nj1 - Immunization history:: Adult Immunizations unknown. - Social history:: Smoking status: unknown. ROS: 15:05 Constitutional: Negative for body aches, chills, fever, poor PO intake, cp 15:05 Eyes: Negative for injury, pain, redness, and discharge, cp 15:05 ENT: Negative for drainage from ear(s), ear pain, sore throat, difficulty swallowing, difficulty handling secretions, 15:05 Cardiovascular: Negative for chest pain, palpitations, 15:05 Respiratory: Negative for cough, shortness of breath, wheezing, 15:05 Abdomen/GI: Negative for abdominal pain, vomiting, diarrhea, constipation, 15:05 Back: Negative for pain at rest, pain with movement, 15:05 MS/extremity: Positive for pain, of the left hip, 15:05 Neuro: Negative for altered mental status, dizziness, headache, loss of consciousness, syncope, 15:05 All other systems are negative, Exam: 15:10 Constitutional: The patient appears in no acute distress, alert, awake, cp non-diaphoretic, non-toxic, well developed, frail, 15:10 Head/Face: Normocephalic, atraumatic. cp 15:10 Eyes: Periorbital structures: appear normal, Conjunctiva: normal, no exudate, no injection, Sclera: no appreciated abnormality, Lids and lashes: appear normal, bilaterally, 15:10 ENT: External ear(s): are unremarkable, Nose: is normal, Mouth: Lips: moist, Oral mucosa: pink and intact, moist, Posterior pharynx: Airway: no evidence of obstruction, patent, 15:10 Neck: C-spine: vertebral tenderness, is not appreciated, crepitus, is not appreciated, ROM/movement: is normal, is supple, without pain, no range of motions limitations, 15:10 Chest/axilla: Inspection: normal, Palpation: is normal, no crepitus, no tenderness, 15:10 Cardiovascular: Rate: normal, Rhythm: irregular, Edema: is not appreciated, JVD: is not appreciated, 15:10 Respiratory: the patient does not display signs of respiratory distress, Respirations: normal, no use of accessory muscles, no retractions, labored breathing, is not present, Breath sounds: are clear throughout, no decreased breath sounds, no stridor, no wheezing, 15:10 Abdomen/GI: Inspection: abdomen appears normal, Bowel sounds: active, all quadrants, Palpation: abdomen is soft and non-tender, in all quadrants, 15:10 Back: pain, is absent, ROM is normal, 15:10 Musculoskeletal/extremity: Extremities: noted in the left hip: pain, tenderness, ROM: limited passive range of motion due to pain, in the left hip, Pulses: noted to be 2+ in the left dorsalis pedis artery, 15:10 Neuro: Orientation: no acute changes, per EMS, Mentation: no acute changes, per EMS, Motor: moves all fours, no focal deficits, Vital Signs: 14:44 BP 139 / 88; Pulse 89; Resp 18; Temp 97.6(TE); Pulse Ox 98% on R/A; Height 5 ft. 9 in. ;nj1 15:50 BP 130 / 95; Pulse 91; Resp 18; Pulse Ox 98% on R/A; nj1 17:38 BP 125 / 88; Pulse 90; Resp 18; Pulse Ox 98% ; nj1 18:40 BP 121 / 81; Pulse 86; Resp 16; Pulse Ox 98% on R/A; nj1 MDM: 14:45 Patient medically screened. cp 15:00 Differential diagnosis: closed head injury, contusion, fracture, multiple trauma. cp 17:05 Data reviewed: vital signs, nurses notes, lab test result(s), EKG, radiologic studies, cp CT scan, plain films. 17:25 Management of patient was discussed with the following: Hand Candle Molder: DR Brnet early cp consult after discussion. 18:15 Management of patient was discussed with the following: Hospitalist: DR Bry early cp admit after discussion. 01/05 15:36 Order name: Basic Metabolic Panel; Complete Time: 16:54 01/05 16:54 Interpretation: Normal except: CL 114; GLUC 122; BUN 20; CA 8.2. 01/05 15:36 Order name: CBC with Diff; Complete Time: 16:54 01/05 16:54 Interpretation: Normal except: RBC 4.01; HGB 12.8; HCT 38.5; RDW 17.1; LYM% 14.2. 01/05 15:36 Order name: LFT's; Complete Time: 16:54 01/05 15:36 Order name: Magnesium; Complete Time: 16:54 01/05 15:36 Order name: PT-INR; Complete Time: 16:54 01/05 15:36 Order name: Troponin HS; Complete Time: 16:54 01/05 18:23 Order name: Urinalysis w/ reflexes EDUT 01/05 18:23 Order name: CBC with Automated Diff EDUT 01/05 18:23 Order name: CBC with Automated Diff; Complete Time: 06:33 EDUT 01/05 18:23 Order name: Comprehensive Metabolic Panel EDUT 01/05 18:23 Order name: Comprehensive Metabolic Panel; Complete Time: 06:33 [facility] 01/05 14:45 Order name: XRAY Pelvis; Complete Time: 16:54 01/05 14:45 Order name: XRAY Femur LEFT; Complete Time: 16:54 01/05 15:36 Order name: CT Abd/Pelvis - Without Contrast; Complete Time: 16:54 01/05 16:54 Interpretation: Report reviewed. 01/05 15:36 Order name: XRAY Chest (1 view); Complete Time: 16:54 01/05 15:36 Order name: EKG; Complete Time: 15:36 01/05 18:23 Order name: CONS Physician Consult EDUT 01/05 15:00 Order name: IV; Complete Time: 15:30 01/05 15:36 Order name: Cardiac monitoring; Complete Time: 16:39 cp 01/05 15:36 Order name: EKG - Nurse/Tech; Complete Time: 16:49 cp 01/05 15:36 Order name: Labs collected and sent; Complete Time: 16:39 cp 01/05 15:36 Order name: O2 Per Protocol; Complete Time: 16:39 cp 01/05 15:36 Order name: O2 Sat Monitoring; Complete Time: 16:40 cp Administered Medications: 15:28 Drug: metoCLOPramide IVP 10 mg IVP once; over 1 to 2 minutes Route: IVP; Site: right nj1 antecubital; 16:30 Follow up: Response: No adverse reaction [facility] 15:29 Drug: morphine IVP or IV 2 mg IVP once over 4 mins Route: IVP; Infused Over: 4 mins; [facility] Site: right antecubital; 16:30 Follow up: Response: No adverse reaction; Pain is decreased nj1 Disposition: 01/06 08:59 Co-signature as Attending Physician, Yassine Hawley MD I reviewed the patient's care rt provided by the Advanced Practice Provider and agree with the diagnosis and treatment plan. Disposition Summary: 01/06/24 17:42 Hospitalization Ordered Notes: Hospitalization Status: Inpatient Admission cp Provider: Mamadou Londono cp Location: Telemetry/MedSurg (Inpatient) cp Condition: Stable cp Problem: new cp Symptoms: have improved cp Bed/Room Type: Standard cp Room Assignment: 406(01/06/24 18:49) bc6 Diagnosis - Left Subcapital Hip Fracture cp Forms: - Medication Reconciliation Form cp - SBAR form cp - Leadership Thank You Letter cp Signatures: Dispatcher [employer] EDLeopoldo Morrison PA PA cp Alexi Suazo MD MD rn3 Yassine Hawley MD MD rt Sheyla Marvin bc6 Melissa Hart RN RN nj1 Corrections: (The following items were deleted from the chart) 01/05 18:49 17:42 cp bc6
--- NOTE | 2024-01-06 17:43 | ER ---
Nurse's Notes [facility] Name: Donald Herron Age: 73 yrs Sex: Male : 1950 Arrival Date: 01/06/2024 Time: 14:25 Bed 13 Private MD: Diagnosis: Left Subcapital Hip Fracture Presentation: 01/05 14:44 Chief complaint: EMS states: Fall Wednesday, co left hip pain since, had xray done at [facility] that showed there is a fracture. 14:44 Method Of Arrival: EMS: [facility] 14:44 Coronavirus screen: At this time, the client does not indicate any symptoms associated [facility] with coronavirus-19. Ebola Screen: Patient denies travel to an Ebola-affected area in the 21 days before illness onset. Initial Sepsis Screen: Does the patient meet any 2 criteria? No. Patient's initial sepsis screen is negative. Does the patient have a suspected source of infection? No. Patient's initial sepsis screen is negative. Risk Assessment: Do you want to hurt yourself or someone else? Unable to obtain. Onset of symptoms was January 03, 2024. 14:44 Acuity: [place] 3 [facility] Historical: - Allergies: 14:58 Zofran; nj1 - PMHx: 14:58 Alzheimer's disease; Asthma; Atrial fibrillation; osteoarthritis; GERD; syncope; TIA; nj1 - Immunization history:: Adult Immunizations unknown. - Social history:: Smoking status: unknown. Screenin:01 [facility] ED Fall Risk Assessment (Adult) History of falling in the last 3 months, [facility] including since admission Yes- fall prone (multiple falls) (3 pts) Confusion or Disorientation Yes (5 pts) Intoxicated or Sedated No (0 pts) Impaired Gait Yes (1 pt) Mobility Assist Device Used No (0 pt) Altered Elimination Yes (1 pt) Score/Fall Risk Level 3 or more points = High Risk Oriented to surroundings, Maintained a safe environment, Assessed \T\ reinforced patient's understanding of fall precautions, Hourly rounding (assess needs \T\ fall precautionary measures) done, Implemented a Fall Risk Plan of Care, Offered frequent toileting (1:1 observation). Abuse screen: Denies threats or abuse. Denies injuries from another. Nutritional screening: No deficits noted. Tuberculosis screening: No symptoms or risk factors identified. Assessment: 14:40 General: Appears in no apparent distress. uncomfortable, Behavior is calm, cooperative, nj1 appropriate for age. Pain: Complains of pain in Hip, left Unable to use pain scale. Does not appear to understand pain scale. Neuro: Level of Consciousness is awake, alert, obeys commands, Oriented to person, situation, Speech incomprehensible at times. Cardiovascular: Patient's skin is warm and dry. 14:40 Respiratory: Airway is patent Respiratory effort is even, unlabored. nj1 15:00 Reassessment: This RN inquires about low catheter placement due to known hip nj1 fracture, no orders received at this time. 15:10 Reassessment: Pt has removed pulse oxymeter as well as blood pressure cuff. Does not [facility] want to keep them on. Education attempted with no success. 16:37 Reassessment: Patient appears in no apparent distress at this time. Resting /sleeping. nj1 Has removed cardiac leads, blood pressure and pulse oxymeter. ED provider notified. 17:38 Reassessment: Patient appears in no apparent distress at this time. Resting/sleeping. nj1 18:15 Reassessment: Daughter Lita Moses on the phone, update given. [phone]. nj1 Vital Signs: 14:44 BP 139 / 88; Pulse 89; Resp 18; Temp 97.6(TE); Pulse Ox 98% on R/A; Height 5 ft. 9 in. ;nj1 15:50 BP 130 / 95; Pulse 91; Resp 18; Pulse Ox 98% on R/A; nj1 17:38 BP 125 / 88; Pulse 90; Resp 18; Pulse Ox 98% ; nj1 18:40 BP 121 / 81; Pulse 86; Resp 16; Pulse Ox 98% on R/A; nj1 ED Course: 14:43 Patient arrived in ED. bc6 14:44 Leopoldo Pascual PA is PHCP. cp 14:45 Yassine Hawley MD is Attending Physician. cp 14:45 Patient has correct armband on for positive identification. Bed in low position. Call nj1 light in reach. Side rails up X 1. Provided Education on: call light, fall precautions. 14:52 Melissa Hart, BRYCE is Primary Nurse. nj1 14:58 Triage completed. nj1 14:59 Arm band placed on. nj1 15:14 XRAY Pelvis In Process Unspecified. EDMS 15:14 XRAY Femur LEFT In Process Unspecified. EDMS 15:27 Inserted saline lock: 22 gauge in right antecubital area, using aseptic technique. nj1 16:19 XRAY Chest (1 view) In Process Unspecified. EDMS 16:26 CT Abd/Pelvis - Without Contrast In Process Unspecified. EDMS 16:49 EKG done, by ED staff. aw1 17:40 Mamadou Londono MD is Hospitalizing Provider. cp 17:43 Primary Nurse role handed off by Melissa Hart, BRYCE nj1 17:44 Melissa Hart, BRYCE is Primary Nurse. nj1 19:05 Repositioned patient. Cleaned of incontinence. Brief changed. nj1 19:05 Placed in gown. nj1 19:08 No provider procedures requiring assistance completed. Patient admitted, IV remains in sc1 place. 19:45 Removal of peripheral IV. Catheter intact, dressing applied. nj1 Administered Medications: 15:28 Drug: metoCLOPramide IVP 10 mg IVP once; over 1 to 2 minutes Route: IVP; Site: right sc1 antecubital; 16:30 Follow up: Response: No adverse reaction nj1 15:29 Drug: morphine IVP or IV 2 mg IVP once over 4 mins Route: IVP; Infused Over: 4 mins; [facility] Site: right antecubital; 16:30 Follow up: Response: No adverse reaction; Pain is decreased nj1 Medication: 19:46 VIS not applicable for this client. nj1 Outcome: 17:42 Decision to Hospitalize by Provider. cp 19:08 Admitted to Tele accompanied by [facility], via stretcher, room 406, Report called to [place] [phone] ticket faxed at this time. 19:08 Condition: stable nj 19:08 Discharge instructions given to family, Daughter, Lita Moses, notified of patient being admitted to room 406. Instructed on the need for admit, 19:43 Patient left the ED. nj1 Signatures: Dispatcher [employer] EDMS Leopoldo Pascual PA PA cp Sheyla Marvin bc6 Melissa Hart, BRYCE RN nj1 Yuli Seth aw1 Corrections: (The following items were deleted from the chart) 16:35 14:40 Neuro: Level of Consciousness is awake, alert, obeys commands, Oriented to nj1 person, place, situation, nj1
[2024-01-06] MEDS ORDERED: ONDANSETRON 4 MG/2 ML VIAL IV PRN (18:18)
[2024-01-06] MEDS ORDERED: ACETAMINOPHEN 325 MG TABLET PO PRN (18:18)
--- NOTE | 2024-01-06 18:18 | P.HP ---
Certification for Inpatient Patient admitted to: Inpatient With expected LOS: >2 Midnights Practitioner: I am a practitioner with admitting privileges, knowledge of patient current condition, hospital course, and medical plan of care. Services: Services provided to patient in accordance with Admission requirements found in Title 42 Section 412.3 of the Code of Federal Regulations Patient History Date of Service: 01/06/24 Reason for admission: Fall , Hip Pain History of Present Illness: 73-year-old male with TIA , hypertension, hyperlipidemia, CKD stage II, kadi ia, atrial fibrillation, on Eliquis was brought to ER with history of fall. Patient is a poor historian and cannot offer any history hence most of the history is obtained from the chart review and also talking to the ER physician. Patient complains of pain in the left hip. Denies any chest pain or shortness of breath. No fever or chills. No nausea vomiting or diarrhea Patient was assessed in the ER and was found to have subcapital fracture of the left hip and was admitted for close monitoring and possible surgery in the morning. Dr. Kennedy has been consulted by the ER Allergies ondansetron [From Zofran] Allergy (Verified 10/27/23 19:45) Hives/Rash Home medications list reviewed: Yes Home Medications: Acetaminophen with Codeine [Acetaminophen-Cod #3 Tablet] 1 tab PO Q8HP PRN 04/17/23 Apixaban [Eliquis] 5 mg PO BID 04/17/23 Aspirin [Aspirin EC 81 MG] 81 mg PO DAILY 04/17/23 Atorvastatin Calcium 40 mg PO BEDTIME 04/17/23 Divalproex ER [Depakote *ER] 250 mg PO BID 04/17/23 Divalproex Sodium [Depakote] 125 mg PO BID 04/17/23 Ergocalciferol (Vitamin D2) [Vitamin D2] 1 cap PO Q7D 04/17/23 Acetaminophen [Tylenol] 650 mg PO Q6HP PRN 10/27/23 Amlodipine [Norvasc*] 10 mg PO DAILY 10/27/23 Ascorbic Acid [Vitamin C*] 500 mg PO DAILY 10/27/23 Cholecalciferol (Vitamin D3) [Vitamin D 1000 Iu Tab*] 1,000 unit PO DAILY 10/27/23 Fluticasone/Umeclidin/Vilanter [Trelegy Ellipta 200-62.5-25] 1 each IH DAILY 10/27/23 Lidocaine 4% Patch [Lidoderm 5% Patch*] 1 patch TD DAILY 10/27/23 Zinc Gluconate [Zinc] 50 mg PO DAILY 10/27/23 carvediloL [Carvedilol] 6.25 mg PO BID 10/27/23 cloNIDine HCL [Clonidine HCl] 0.1 mg PO Q8HP PRN 10/27/23 Amlodipine [Norvasc*] 5 mg PO DAILY tab 11/03/23 Apixaban [Eliquis] 5 mg PO BID 11/03/23 Atorvastatin Calcium [Lipitor] 40 mg PO BEDTIME tab 11/03/23 Ensure Enlive 237 ml PO BID can 11/03/23 carvediloL [Coreg*] 6.25 mg PO BIDWM tab 11/03/23 - Past Medical/Surgical History Diabetic: No Past Medical History: Reviewed- Non-Contributory -: TIA -: Atrial fibrillation -: Dementia -: HTN -: HLD -: Hx DEBORAH (Dr. Whitley/ Dr. Monroy) Past Surgical History: Reviewed- Non-Contributory Psychosocial/ Personal History: Resident of [facility] - Social History Smoking Status: Never smoker Alcohol use: No CD- Drugs: No Caffeine use: No Review of Systems 10-point ROS is otherwise unremarkable Physical Examination - Vital Signs Temperature: 98.4 F Blood Pressure: 126/78 Pulse: 78 Respirations: 18 Pulse Ox (%): 96 - Physical Exam General: Alert, In no apparent distress, Demented HEENT: Atraumatic, Normocephalic Neck: Supple Respiratory: Clear to auscultation bilaterally, Normal air movement Cardiovascular: Regular rate/rhythm, No gallops, No rubs Capillary refill: <2 Seconds Gastrointestinal: Soft and benign, W/out hepatosplenomegaly, No tenderness, No masses Musculoskeletal: No clubbing, No swelling, Tenderness, Other (Left Hip tenderness ) Integumentary: No rashes, No breakdown Neurological: Other (Alert , Awake , Confused ), Dementia Lymphatics: No axilla or inguinal lymphadenopathy - Studies Laboratory Data (last 24 hrs) 01/06/24 01/06/24 01/06/24 16:00 16:00 16:00 WBC 8.90 Hgb 12.8 L Hct 38.5 L Plt Count 213 PT 14.4 H INR 1.32 Sodium 145 Potassium 3.8 BUN 20 H Creatinine 0.82 Glucose 122 H Magnesium 2.1 Total Bilirubin 0.7 AST 15 ALT 24 Alkaline Phosphatase 88 Assessment and Plan - Problems (Diagnosis) (1) Fracture, proximal femur Current Visit: Yes Status: Acute Plan: Fracture femur left hip Pain control Monitor closely Orthopedic consulted Will keep n.p.o. postmidnight Dr. Kennedy was consulted and possibly go to OR tomorrow (2) Dementia Current Visit: Yes Status: Chronic Plan: Continue home medications and titrate as needed Supportive measures (3) History of atrial fibrillation Current Visit: No Status: Chronic Plan: Atrial fibrillation Rate controlled Monitor under telemetry Was on Eliquis Will hold Eliquis for surgery Continue home medications and titrate as needed (4) History of hypertension Current Visit: No Status: Chronic Plan: Hypertension Antihypertensives continued and titrated Discharge Plan: Assisted Plan to discharge in: Greater than 2 days - Advance Directives Does patient have a Living Will: Yes Does patient have a Durable POA for Healthcare: Yes - Code Status/Comfort Care Code Status: Full Code Time Spent Managing Pts Care (In Minutes): 54
[2024-01-06] MEDS: NA CHLORIDE 0.9% 1,000 ML IV SCH (20:17)
[2024-01-07 00:42] VITALS: BMI 24.4
[2024-01-07] MEDS ORDERED: METOCLOPRAMIDE 10 MG/2mL INJ IV PRN (01:11)
[2024-01-07 04:09] LABS: Absolute Eosinophils 0.3 K/uL (0-0.5); Absolute Lymphocytes (CBC) 1.7 K/uL (0.7-4.9); Absolute Neutrophil 5.1 K/uL (1.8-8.0); Basophils % 0.4 % (0-1.3); Hematocrit 36.8 % (39.6-49.0); Hemoglobin 12.2 g/dL (13.6-17.9); Lymphocytes % 20.7 % (15.3-44.8); MCH 31.9 pg (27.0-35.0); MCHC 33.1 g/dL (32.0-36.0); MCV 96.4 fL (80-100); MPV 9.6 fL (7.6-11.3); Monocytes % 12.6 % (3.3-12.3); Neutrophils % 62.3 % (41.7-73.7); Platelets 208 thou/uL (152-406); RBC Red Blood Cell Count 3.82 M/uL (4.33-5.43); Red Cell Distribution Width 16.9 % (12.1-15.2)
[2024-01-07 04:39] LABS: Albumin 2.5 g/dL (3.4-5.0); Albumin/Globulin Ratio 0.6 (1.1-1.8); Anion Gap 8.1 mEq/L (5.0-15.0); Bilirubin Total 0.9 mg/dL (0.2-1.0); Globulin 3.9 g/dL (2.3-3.5); Potassium 3.1 mEq/L (3.5-5.1); Protein, Total 6.4 g/dL (6.4-8.2)
[2024-01-07] MEDS: KCL 20 MEQ/100 mL IVPB 20 MEQ/100 ML BAG IV SCH (05:03)
--- NOTE | 2024-01-07 06:47 | P.PN ---
Date of Service: 01/07/24 Subjective: NPO for tentative surgery today reportedly fell wednesday after transferring from wheelchair. denies lost of consciousness denies constipation. no urinary symptoms no numbness or tingling in lower extremities +hip pain, otherwise denies any other problems ROS: 10 point ROS as noted above, otherwise negative Physical Exam: GEN: Alert, orientedx2 (incorrect year), NAD HEENT: Normal conjunctiva, sclera anicteric CV: Regular rate and rhythm, no edema Pulm: Nonlabored respirations on room air, clear bilaterally ABD: Soft, nontender, nondistended MSK: Left hip tenderness, pain with ROM Neuro: Normal speech, normal affect, dementia vitals reviewed Problem List: Mildly impacted subcapital left proximal femur fracture Chronic a-fib on Eliquis Hypertension Hyperlipidemia Dementia / Alzheimer's disease Hx of asthma Hx of TIA Mildly impacted subcapital left proximal femur fracture reportedly had a fall this past Wednesday after transferring from wheelchair. Denies any lost of consciousness. pelvis/femur xray (01/05): impacted left proximal femur fracture CT abdomen (01/05): Mildly impacted subcapital left proximal femur fracture. punctate bilateral nephrolithiasis without hydronephrosis. Significant stool rectosigmoud colon. Sigmoid diverticulosis coli. Ortho - Dr. Kennedy consulted to wong for surgical intervention NPO for tentative surgery today PRN analgesics / antiemetics continue IV fluids Chronic a-fib on Eliquis hold home eliquis for now given tentative surgery. will discuss with ortho regarding restarting in next day or two Monitor on telemetry Hypertension continue home coreg Hyperlipidemia continue home statin Dementia / Alzheimer's disease confirm home meds, restart as appropriate continue supportive care VTE: Hold home eliquis given tentative surgery Code: Full Dispo: NH, ~2 days Pending surgery / recovery
[2024-01-07] MEDS: HOME MED 1 EA UNK (Fluticasone/Umeclidin/Vilanter [Trelegy Ellipta 200-62.5-25] Blst.W.Dev IH SCH (08:52)
[2024-01-07] MEDS: carvediloL 6.25 MG TAB PO SCH (08:59)
[2024-01-07] MEDS: FENTANYL CITR 100 MCG/2 ML ONE (11:09)
[2024-01-07] MEDS: DEXMEDETOMIDINE HCL 200 MCG/2 ML VIAL ONE (11:09)
[2024-01-07] MEDS: ROPIVACAINE HCL 20 ML ONE (11:10)
[2024-01-07] MEDS ORDERED: propofoL 200 MG/20 ML VIAL IV ONE (11:53)
[2024-01-07] MEDS ORDERED: LIDOCAINE 2% MPF 5 ML VIAL ONE (11:53)
[2024-01-07] MEDS ORDERED: ROCURONIUM 50 MG/5 ML VIAL IV ONE (11:55)
[2024-01-07] MEDS ORDERED: Phenylephrine HCl 10 MG/ML 1 ML VIAL ONE (12:02)
[2024-01-07] MEDS ORDERED: GLYCOPYRROLATE 0.2 MG/ML SYR ONE (12:02)
[2024-01-07] MEDS ORDERED: NS 0.9% VIAL 10 ML ONE (12:02)
[2024-01-07] MEDS ORDERED: KETOROLAC 30 MG/ML INJ ONE (12:02)
[2024-01-07] MEDS ORDERED: dexAMETHasone 10 MG/ML VIAL ONE (12:02)
[2024-01-07] MEDS: CEFAZOLIN SODIUM 2 GM/VIAL ONE (12:29)
--- NOTE | 2024-01-07 13:21 | P.BOP ---
Preoperative diagnosis: left femoral neck fracture Postoperative diagnosis: same Primary procedure: closed reduction percutaneous screw fixation left femoral neck fracture Railroad Car Checker: NONE,NONE Estimated blood loss: 20 cc Specimen: none Findings: see dictation Anesthesia: General Complications: None Implants: 3- 6.5 mm cannulated screws Fluids & blood products: per anesthesia record Transferred to: Recovery Room Condition: Good
[2024-01-07] MEDS ORDERED: DOCUSATE NA 100 MG CAP PO PRN (14:00)
[2024-01-07 14:03] LABS: Hematocrit 37.5 % (39.6-49.0); Hemoglobin 12.4 g/dL (13.6-17.9)
--- NOTE | 2024-01-07 14:13 | RAD REPORT ---
EXAM DESCRIPTION: RAD - Fluoroscopy <1 Hour - 01/07/2024 1:55 pm CLINICAL HISTORY: NAILING COMPARISON: None available. FINDINGS: Twenty-one Images were sent to PACS, documenting fluoroscopy use during femoral neck inter nal fixation. No radiologist was available for the procedure, nor will any image interpretation he pr ovided. Please refer to the procedural report for additional details. Fluoroscopy time: 1.3 minutes. IMPRESSION: Documentation of fluoroscopy utilization as above.
--- NOTE | 2024-01-07 14:20 | RAD REPORT ---
EXAM DESCRIPTION: RAD - Hip Left 2 View - 01/07/2024 1:59 pm CLINICAL HISTORY: postop COMPARISON: Femur Left dated 01/06/2024; Pelvis dated 01/06/2024 TECHNIQUE: Left hip, AP and frogleg views of the left hip. FINDINGS: Cannulated screws fixating the known left femoral neck fracture, with no significant padron e in alignment. Left hip joint is well aligned. Vascular calcifications and immediate postoperative c hanges in the adjacent soft tissues with skin bruce. No acute or destructive bony process seen. IMPRESSION: Satisfactory alignment following internal fixation of left femoral neck fracture.
[2024-01-07] MEDS: CEFAZOLIN 1 GM in NA CHLORIDE 0.9% 50 ML IVPB SCH (17:14)
[2024-01-07] MEDS: POTASSIUM CL SA 10 MEQ TAB PO ONE (17:15)
--- NOTE | 2024-01-07 17:23 | EKG ---
Test Date: 2024-01-06 Test Time: 16:35:05 Claim Manager: KATHARINE MEASUREMENT RESULTS: Intervals: Rate: 86 [place]: QRSD: 96 QT: 382 QTc: 457 [place]: P: [place]: QRS: 96 T: 65 INTERPRETIVE STATEMENTS: Atrial fibrillation Rightward axis Septal infarct, age undetermined Abnormal ECG Compared to ECG 10/27/2023 12:18:31 Right-axis deviation now present Myocardial infarct finding now present T-wave abnormality no longer present Possible ischemia no longer present Electronically Signed On 01-07-24 17:20:17 CDT by Wiley Cyr
--- NOTE | 2024-01-07 18:25 | CON ---
Date of Consultation: 01/07/2024 Reason For Consultation: Left hip pain. History Of Present Illness: Donald is a 73-year-old male who presented to the ER for having sustained a fall to his left side with subsequent left hip pain and inability to bear weight. The patient has history of hypertension, hyperlipidemia, chronic kidney disease, dementia, AFib, and TIA. He lives in a custodial facility. The patient is a poor historian. Per his daughter, the patient does ambulate minimally and he is mainly in a chair. She reports that the patient fell onto his left side with pain. He was brought in the emergency room and diagnosed with a left hip fracture. Review of Systems: As above, otherwise negative. Past Medical History: Includes hypertension, hyperlipidemia, chronic kidney disease, dementia, AFib, and TIA. Past Surgical History: Noncontributory. Social History: denies tobacco or alchol use Allergies: TO ZOFRAN. Family History: Reviewed, noncontributory. Medications: Per medication reconciliation. Physical Examination: General: In no apparent distress. HEENT: Normocephalic, atraumatic. Neck: Supple. Cardiovascular: Brisk cap refill to all digits. Chest: Nonlabored breathing. Abdomen: Nondistended. Psychiatric: Does not respond appropriately, dementia. Musculoskeletal: Bilateral upper extremities, functional range of motion without pain. No gross deformities. No obvious dislocations. Right lower extremity, functional range of motion without pain. No gross deformities. No obvious dislocations. Left lower extremity, pain with range of motion of the left hip. Tenderness to palpation over the left hip. No tenderness over the knee, tibia, ankle. Moves toes grossly with brisk cap refill distally. Diagnostic Studies: X-rays and CAT scan demonstrate a minimally displaced left femoral neck fracture. Assessment And Plan: Donald is a 73-year-old male with a left femoral neck fracture. I discussed with the patient and his family at length risks and benefits associated with operative and nonoperative treatment measures. Given the mental status, we will proceed with closed reduction, percutaneous screw fixation. Risks and benefits associated with operative procedure discussed with them at length and they expressed understanding and they elected to proceed with operative treatment. We will proceed with surgery later today. Physical Therapy will be consulted to mobilize the patient postoperatively. CV/MODL Voice ID: [id number] Report ID: [id number] MTDD
[2024-01-07] MEDS: ATORVASTATIN 40 MG TAB PO SCH (21:14)
[2024-01-07] MEDS: DIVALPROEX ER 250 MG TAB PO SCH (21:14)
[2024-01-07] MEDS: ENSURE SURGERY 237 ML CAN PO SCH (21:15)
--- NOTE | 2024-01-08 01:31 | OP ---
Date of Procedure: 01/07/2024 Surgeon: Ab Kennedy MD Preoperative Diagnosis: Left femoral neck fracture. Postoperative Diagnosis: Left femoral neck fracture. Procedure Performed: Closed reduction and percutaneous screw fixation of left femoral neck fracture. Anesthesia: General endotracheal. Fluids: Per Anesthesia record. Estimated Blood Loss: 20 cc. Complications: None. Implants: Three 6.5 mm cannulated screws with short threads. Indication For Procedure: Donald is a 73-year-old male who presented to the ER after sustaining a fa ll with imaging demonstrating a minimally displaced left femoral neck fracture. I discussed with the patient and his daughter at length risks and benefits associated with operative treatment. He elect ed to proceed with operative treatment. Description Of Procedure: After informed consent was obtained, the patient was identified in the pre operative holding area. The left lower extremity was marked. The patient was brought back to the op erating room, transferred to the operating table in supine fashion, placed under general endotracheal anesthesia. He was placed on the fracture table with his extremities well padded. Fluoroscopy was then used to evaluate the left hip that had still overall good alignment of the femoral neck fracture with minimal displacement. The left lower extremity was then prepped and draped in the usual steril e fashion. A time-out was initiated. The correct patient and procedure were confirmed and identifie d. The patient did receive his preoperative prophylactic antibiotics. A small stab incision was mad e over the lateral thigh. Using fluoroscopy to ensure proper placement, guide pin was placed on the lateral wall of the proximal femur and a guide pin was placed in a center-center position on the infe rior aspect of the femoral neck and head, followed by 2 parallel guide pins in anterosuperior and pos terosuperior position for an inverted triangle configuration. These guide pins were then measured an d outer wall was drilled for placement of the screw. Three 6.5 mm cannulated screws were placed. Th e guide pins' proper placement to be confirmed using fluoroscopy. There was good overall bite of the screws. Fluoroscopy was then used to ensure proper placement of the screws. There were no screws t hat were intra-articular. The guide pins were then removed. Wounds were then irrigated thoroughly w ith normal saline. He was approximated using a 2-0 Vicryl and bruce. Sterile dressings were appli ed. The patient was awakened and transferred back in stable condition. Postoperative Plan: The patient will be touchdown weightbearing on the left lower extremity. Physic al Therapy will be consulted to aid with mobilization. The patient will follow up in 1 to 2 weeks fo r staple removal. CV/MODL Voice ID: [id number] Report ID: [id number]
[2024-01-08 04:13] LABS: Absolute Basophils 0.1 K/uL (0-0.5); Absolute Lymphocytes (CBC) 0.8 K/uL (0.7-4.9); Absolute Monocytes 0.8 K/uL (0.1-1.3); Absolute Neutrophil 5.8 K/uL (1.8-8.0); Basophils % 0.7 % (0-1.3); Eosinophils % 0.1 % (0-4.4); Hematocrit 33.1 % (39.6-49.0); Hemoglobin 11.4 g/dL (13.6-17.9); Lymphocytes % 10.4 % (15.3-44.8); MCH 33.2 pg (27.0-35.0); MCHC 34.4 g/dL (32.0-36.0); MCV 96.3 fL (80-100); MPV 9.3 fL (7.6-11.3); Monocytes % 11.1 % (3.3-12.3); Neutrophils % 77.7 % (41.7-73.7); Platelets 223 thou/uL (152-406); RBC Red Blood Cell Count 3.44 M/uL (4.33-5.43); Red Cell Distribution Width 16.7 % (12.1-15.2)
[2024-01-08 04:25] LABS: Anion Gap 7.9 mEq/L (5.0-15.0); Potassium 3.9 mEq/L (3.5-5.1)
[2024-01-08] MEDS: POTASSIUM 25 MEQ EFFERV TAB PO ONE (05:47)
--- NOTE | 2024-01-08 07:18 | P.PN ---
Date of Service: 01/08/24 Subjective: feeling better today hip pain significantly improved - no/minimal pain currently no diarrhea. no flatus. denies trouble urinating. denies any new / worsening problems afebrile ROS: 10 point ROS as noted above, otherwise negative Physical Exam: GEN: Alert, oriented, NAD HEENT: Normal conjunctiva, sclera anicteric CV: Regular rate and rhythm, no edema Pulm: Nonlabored respirations on room air, clear bilaterally ABD: Soft, nontender, nondistended MSK: minimal left hip tenderness. Dressing in place (c/d/i) Neuro: Normal speech, normal affect, dementia vitals reviewed Problem List: Mildly impacted subcapital left proximal femur fracture, now s/p closed reduction percutaneous screw fixation Chronic a-fib on Eliquis Hypertension Hyperlipidemia Dementia / Alzheimer's disease Hx of asthma Hx of TIA Mildly impacted subcapital left proximal femur fracture, now s/p closed reduction percutaneous screw fixation reportedly had a fall this past Wednesday after transferring from wheelchair. Curly es any loss of consciousness. pelvis/femur xray (01/05): impacted left proximal femur fracture CT abdomen (01/05): Mildly impacted subcapital left proximal femur fracture. punctate bilateral nephrolithiasis without hydronephrosis. Significant stool rectosigmoud colon. Sigmoid diverticulosis coli. Ortho - Dr. Kennedy is following s/p closed reduction percutaneous screw fixation of left femoral neck fracture (01/06) monitor H&H PT consulted PRN analgesics / antiemetics dc IVF Chronic a-fib on Eliquis restart eliquis 01/07, discussed with ortho continue home coreg Monitor on telemetry Hypertension hold amlodipine and clonidine for now, BP normal - to low-normal Hyperlipidemia continue home statin Dementia / Alzheimer's disease confirm home meds, restart as appropriate continue supportive care ensure BID VTE: eliquis restart Code: Full Dispo: NH, ~1-2 days
[2024-01-08] MEDS: TRAMADOL HCL 50 MG TAB PO PRN (16:29)
[2024-01-08] MEDS: APIXABAN 5 MG TABLET PO SCH (21:16)
[2024-01-09 04:40] LABS: Absolute Eosinophils 0.3 K/uL (0-0.5); Absolute Monocytes 0.8 K/uL (0.1-1.3); Absolute Neutrophil 4.9 K/uL (1.8-8.0); Basophils % 0.5 % (0-1.3); Eosinophils % 3.3 % (0-4.4); Hematocrit 31.3 % (39.6-49.0); Hemoglobin 10.7 g/dL (13.6-17.9); Lymphocytes % 25.4 % (15.3-44.8); MCH 32.8 pg (27.0-35.0); MCHC 34.2 g/dL (32.0-36.0); MCV 95.8 fL (80-100); MPV 9.1 fL (7.6-11.3); Monocytes % 9.5 % (3.3-12.3); Neutrophils % 61.3 % (41.7-73.7); Platelets 232 thou/uL (152-406); RBC Red Blood Cell Count 3.26 M/uL (4.33-5.43); Red Cell Distribution Width 16.4 % (12.1-15.2)
[2024-01-09 05:03] LABS: Anion Gap 8.6 mEq/L (5.0-15.0); Magnesium 2.1 mg/dL (1.6-2.4); Potassium 3.6 mEq/L (3.5-5.1)
[2024-01-09] MEDS: POTASSIUM 25 MEQ EFFERV TAB PO ONE (05:41)
[2024-01-09 06:17] LABS: Blood Morphology Comment NOTED (NOT SEEN); Platelet Estimate ADEQ; White Blood Cell Scan OK (OK)
--- NOTE | 2024-01-09 08:44 | P.PN ---
Date of Service: 01/09/24 Subjective: reports some left hip pain/soreness but tolerable with current pain regimen worked with PT yesterday in bed. denies any new / worsening problems no BM yet. no nausea/vomiting afebrile ROS: 10 point ROS as noted above, otherwise negative Physical Exam: GEN: Alert, oriented, NAD HEENT: Normal conjunctiva, sclera anicteric CV: Regular rate and rhythm, no edema Pulm: Nonlabored respirations on room air, clear bilaterally ABD: Soft, nontender, nondistended MSK: mild left hip tenderness. Dressing in place (c/d/i) Neuro: Normal speech, normal affect, dementia vitals reviewed Problem List: Mildly impacted subcapital left proximal femur fracture, now s/p closed reduction percutaneous screw fixation Chronic a-fib on Eliquis Hypertension Hyperlipidemia Dementia / Alzheimer's disease Hx of asthma Hx of TIA Mildly impacted subcapital left proximal femur fracture, now s/p closed reduction percutaneous screw fixation reportedly had a fall this past Wednesday after transferring from wheelchair. Denies any loss of consciousness pelvis/femur xray (01/05): impacted left proximal femur fracture CT abdomen (01/05): Mildly impacted subcapital left proximal femur fracture. punctate bilateral nephrolithiasis without hydronephrosis. Significant stool rectosigmoud colon. Sigmoid diverticulosis coli Ortho - Dr. Kennedy is following s/p closed reduction percutaneous screw fixation of left femoral neck fracture (01/06) follow up with ortho in 1-2 weeks for bruce removal touchdown weightbearing on lower left extremity monitor H&H continue PT PRN analgesics / antiemetics IVF dc'd 01/07 Chronic a-fib on Eliquis continue home eliquis, resumed 01/07 pm continue home coreg Monitor on telemetry Hypertension hold amlodipine and clonidine for now, BP normal to low-normal Hyperlipidemia continue home statin Dementia / Alzheimer's disease confirm home meds, restart as appropriate continue supportive care ensure BID VTE: home eliquis resumed Code: Full Dispo: NH, ~1-2 days
[2024-01-10 07:51] LABS: Anion Gap 9.6 mEq/L (5.0-15.0); Potassium 3.6 mEq/L (3.5-5.1)
--- NOTE | 2024-01-10 08:59 | P.DS ---
Admission Date: 01/06/24 Discharge Date: 01/10/24 Disposition: TRANSFER TO SNF - REHAB Reason for Admission: Fall , Hip Pain Consultations: Ortho - Dr. Kennedy Brief History of Present Illness: 73yo M, PMH: TIA , hypertension, hyperlipidemia, CKD stage II, dementia, atrial fibrillation, on Eliquis Patient was brought to ER with history of fall. Patient is a poor historian and cannot offer any history hence most of the history is obtained from the chart review and also talking to the ER physician. Patient complains of pain in the left hip. Denies any chest pain or shortness of breath. No fever or chills. No nausea vomiting or diarrhea. Patient was assessed in the ER and was found to have subcapital fracture of the left hip and was admitted for close monitoring and possible surgery in the morning. Dr. Kennedy has been consulted by the ER. Hospital Course: Problem List: Mildly impacted subcapital left proximal femur fracture, now s/p closed reduction percutaneous screw fixation (01/06) Chronic a-fib on Eliquis Hypertension Hyperlipidemia Dementia / Alzheimer's disease Hx of asthma Hx of TIA Patient presented with left hip pain after a fall and was found to have a mildly impacted subcapital left proximal femur fracture seen on imaging (CT / xray). Dr. Kennedy, ortho, took the patient to the OR on 01/06 for closed reduction percutaneous screw fixation left femoral neck fracture. Patient did well post operatively, was feeling better, hip pain tolerable, with tramadol, and was deemed stable for discharge back to [facility]. Advised patient to follow up with Dr. Kennedy in ~1-2 weeks for bruce removal. Touchdown weight-bearing on the left lower extremity for few weeks until cleared by Ortho. Patient's home amlodipine and clonidine were held for a few days this hospitalization due to blood pressure being normal to low-normal this hospitalization off his home meds. Blood pressure improved post-operatively with time. Okay to resume home antihypertensives amlodipine and clonidine on discharge. Advised to keep diary of daily BP readings to take to follow up appointsments for further adjustments of medications. Medications: no change in medications Follow up: PCP 3-[address] Kennedy in 1-2 weeks in office Physical Exam: GEN: Alert, oriented, NAD HEENT: Normal conjunctiva, sclera anicteric CV: Regular rate and rhythm, no edema Pulm: Nonlabored respirations on room air, clear bilaterally ABD: Soft, nontender, nondistended MSK: mild left hip tenderness. Dressing in place (c/d/i) Neuro: Normal speech, normal affect, dementia Vital Signs/Physical Exam: Temp Pulse Resp BP Pulse Ox 97.8 F 72 16 148/83 H 95 01/10/24 08:00 01/10/24 08:00 01/10/24 08:00 01/10/24 08:00 01/10/24 08:00 Laboratory Data at Discharge: WBC 8.00 thou/uL (4.3-10.9) 01/09/24 04:09 Hgb 10.7 g/dL (13.6-17.9) L 01/09/24 04:09 Hct 31.3 % (39.6-49.0) L 01/09/24 04:09 Plt Count 232 thou/uL (152-406) 01/09/24 04:09 PT 14.4 SECONDS (9.5-12.5) H 01/06/24 16:00 INR 1.32 01/06/24 16:00 Sodium 144 mEq/L (136-145) 01/10/24 06:25 Potassium 3.6 mEq/L (3.5-5.1) 01/10/24 06:25 BUN 15 mg/dL (7-18) 01/10/24 06:25 Creatinine 0.50 mg/dL (0.70-1.30) L 01/10/24 06:25 Glucose 88 mg/dL (74-106) 01/10/24 06:25 Magnesium 2.1 mg/dL (1.6-2.4) 01/09/24 04:09 Total Bilirubin 0.9 mg/dL (0.2-1.0) 01/07/24 03:14 AST 12 U/L (15-37) L 01/07/24 03:14 ALT 21 U/L (16-61) 01/07/24 03:14 Alkaline Phosphatase 83 U/L (45-117) 01/07/24 03:14 Home Medications: Acetaminophen with Codeine [Acetaminophen-Cod #3 Tablet] 1 tab PO Q8HP PRN 04/17/23 Apixaban [Eliquis] 5 mg PO BID 04/17/23 Aspirin [Aspirin EC 81 MG] 81 mg PO DAILY 04/17/23 Divalproex ER [Depakote *ER] 250 mg PO BID 04/17/23 Acetaminophen [Tylenol] 650 mg PO Q6HP PRN 10/27/23 Amlodipine [Norvasc*] 10 mg PO DAILY 10/27/23 Fluticasone/Umeclidin/Vilanter [Trelegy Ellipta 200-62.5-25] 1 each IH DAILY 10/27/23 Lidocaine 4% Patch [Lidoderm 5% Patch*] 1 patch TD Q12H 10/27/23 carvediloL [Carvedilol] 6.25 mg PO BID 10/27/23 cloNIDine HCL [Clonidine HCl] 0.1 mg PO Q8HP PRN 10/27/23 Atorvastatin Calcium [Lipitor] 40 mg PO BEDTIME tab 11/03/23 Mirtazapine 7.5 mg PO BEDTIME 01/06/24 Multivitamin with Minerals [Multivitamins with Minerals] 1 each PO DAILY 01/06/24 Potassium Chloride 10 meq PO DAILY 01/06/24 Physician Discharge Instructions: Physician Discharge Instructions: Patient presented with left hip pain after a fall and was found to have a mildly impacted subcapital left proximal femur fracture seen on imaging (CT / xray). Dr. Kennedy, ortho, took the patient to the OR on 01/06 for closed reduction percutaneous screw fixation left femoral neck fracture. Patient did well post operatively, was feeling better, hip pain tolerable, with tramadol, and was deemed stable for discharge back to [facility]. Advised patient to follow up with Dr. Kennedy in ~1-2 weeks for bruce removal. Touchdown weight-bearing on the left lower extremity for few weeks until cleared by Ortho. Patient's home amlodipine and clonidine were held for a few days this hospitalization due to blood pressure being normal to low-normal this hospitalization off his home meds. Blood pressure improved post-operatively with time. Okay to resume home antihypertensives amlodipine and clonidine on discharge. Advised to keep diary of daily BP readings to take to follow up appointsments for further adjustments of medications. Medications: no change in medications Follow up: PCP 3-[address] Kennedy in 1-2 weeks in office Patient is a half-way resident: [address] [address] P:[phone] F:[phone] F: [phone] Followup: [facility] [Primary Care Provider] - Time spent managing pt's care (in minutes): 45
[2024-01-10 09:45] VITALS: O2SAT 95
[2024-01-10 12:40] VITALS: BP 95/68; TEMP 97.9
== END 2024-01-10 12:33 | DRG 481 ==
LOC: ER 14:25 → ERHOLD 18:18 → 4TH 18:55
PROVIDERS: ADMIT Family Medicine; ATTEND Hospitalist
PROC: 0QS734Z Reposition Left Upper Femur with Internal Fixation Device, Percutaneous Approach (ICD-10-PCS; principal; 2024-01-07 13:15)
DX: S72.012A Unspecified intracapsular fracture of left femur, initial encounter for closed fracture (principal); I48.20 Chronic atrial fibrillation, unspecified; M19.90 Unspecified osteoarthritis, unspecified site; K21.9 Gastro-esophageal reflux disease without esophagitis; I12.9 Hypertensive chronic kidney disease with stage 1 through stage 4 chronic kidney disease, or unspecified chronic kidney disease; N18.2 Chronic kidney disease, stage 2 (mild); I48.91 Unspecified atrial fibrillation; E78.5 Hyperlipidemia, unspecified; G30.9 Alzheimer's disease, unspecified; F02.80 Dementia in other diseases classified elsewhere, unspecified severity, without behavioral disturbance, psychotic disturbance, mood disturbance, and anxiety; Z88.8 Allergy status to other drugs, medicaments and biological substances; Z79.01 Long term (current) use of anticoagulants; Z79.82 Long term (current) use of aspirin; Z79.02 Long term (current) use of antithrombotics/antiplatelets; Z86.73 Personal history of transient ischemic attack (TIA), and cerebral infarction without residual deficits; Z79.899 Other long term (current) drug therapy
CPT/HCPCS: 36415; 70450; 71045; 72170; 74176; 76000; 80048; 80053; 80076; 82947; 83735; 84132; 84484; 85014; 85018; 85025; 85610; 90471; 93005; 94760; 96374; 96375; 97110; 97161; 99285; A4216; J0690; J1100; J2001; J2270; J2371; J2704; J2765; J3010; J3480; J7030

== ENCOUNTER 2024-01-15 14:41 | Observation (INO) | payer OTHER ==
--- OUTSIDE RECORDS SUMMARY | 2024-01-15 14:47 | XMS REPORT | Continuity of Care Document ---
Author Name Unknown Address [address] [facility] [address] [place] [address] [facility] Address [address] [facility] [place] [address] Care Team Providers Care Gang Miner Name Role Phone PCP, PATIENT DOES NOT HAVE A Primary Care Physic marietta Unavailable ANNA RADFORD Attending Clinician Unav ailable ANNA RADFORD Attending Clinician Unav ailable ABELARDO_BAHHarrison_Issa_J Attending Clinician Unavailable NAA LAMBHLenore Attending Clinician UnavailNaa Tierney MDHLenore Attending Clinician [phone] Doctor Unassigned, [place] Attending Clinician U EM [place] Attending Clinician Unavailab Em Castillo DO Attending Clinician [phone] DEE DEE ESQUIVEL Attending Clinician Unavailable Jayna Rizvi RN Attending Clinician [phone] Ileana Szymanski Attending Clinician [phone] BLAIR ERVIN Attending Clinician Unavail able BLAIR ERVIN Attending Clinician Unavail Blair Phillips MD Attending Clinician [phone] Lab, Ang - Db Attending Clinician Unavailable PETROS JETER Attending Clinician Unavailable Zak Hernandez Attending Clinician Unavail able Kim WU, Darlene Attending Clinician [phone] Valeriano Ariel BARRETT, Nidia Attending Clinician + [phone] ALICIA TALLEY Attending Clinician Unavailable Mayank VILLA, Alicia Luong Attending Clinician [phone] DANIEL KUNZ Attending Clinician Unavailshireen Rodríguez MD, Bernardo Krause Attending Clinician [phone] Dalton Chino DO Attending Clinician [phone] Shirley VILLA, Zo Victoria Attending Clinician + Daniel Kunz MD Attending Clinician + [phone] Dick VILLA, Petar Baig Attending Clinician + [phone] BERNARDO RODRÍGUEZ Attending Clinician Unavail able GC_BAHC_Todd_J Admitting Clinician Unavailable BLAIR ERVIN Admitting Clinician Unavail able ADNIEL KUNZ Admitting Clinician UnavailDaniel Napier MD Admitting Clinician [phone] BERNARDO RODRÍGUEZ Admitting Clinician Unavail able Payers Payer Name Policy Type Policy Number Effective Date Expirati on Date Source [place] [employer] [id number] 2022 00:00:00 [facility] [place]AN-[place] - STAR+PLUS (MEDICAID REPLACEMENT - HMO) [id number] 2022 00:00:00 MEDICARE PART A \\T\\ B [id number] 2022 00:00:00 [place] [id number] 2022 00:00:00 MEDICAID - [id number]-[id number] - PENDING 000 Problems Condition Name Condition Details Condition Category Status Onset Date Resolution Date Last Treatment Date Treating Clinician Comments Source Postoperat maurice pain Postoperat maurice Pain Problem Active 318 00:00: 00 [facility] Severe protein-ca ahsan malnutriti on ([place]: less than 60 percent of standard weight) Severe Protein-ca ahsan Malnutriti on ([place]: Less than 60 Percent of Standard Weight) Problem Active 1-24 00:00: 00 [facility] Metabolic encephalop athy Metabolic Encephalop athy Problem Active 1-24 00:00: 00 [facility] Unintentio nal weight loss Unintentio nal Weight Loss Problem Active 1-24 00:00: 00 [facility] Urinary incontinen ce Urinary Incontinen ce Problem Active 1-24 00:00: 00 [facility] Physical deconditio nina Physical Deconditio nina Problem Active 11-17 00:00: 00 [facility] At risk for falls At risk for falls Disease Active 2022-10 0 00:00: 00 [facility] Unspecifie d abnormalit ies of gait and mobility Unspecifie d abnormalit ies of gait and mobility Disease Active 2022-10 0 00:00: 00 [facility] Mass of subcutaneo us tissue of back Mass of Subcutaneo us Tissue of Back Problem Active 8-21 00:00: 00 [facility] Bilateral hearing loss Bilateral Hearing Loss Problem Active 6-29 00:00: 00 [facility] Vitamin D deficiency Vitamin D Deficiency Problem Active 4-03 00:00: 00 [facility] Nicotine dependence Nicotine Dependence Problem Active 4-03 00:00: 00 [facility] Prediabete s Prediabete s Problem Active 4-03 00:00: 00 [facility] Arthritis Arthritis Problem Active 2-10 00:00: 00 [facility] Lives in alf Lives in Intermediate Problem Active 2021-10 2-13 00:00: 00 [facility] Vascular Disease Problem Active 2021-10 00:00: 00 [facility] Atrial fibrillati on Atrial fibrillati on Disease Active 04-30 00:00: 00 [facility] DEBORAH (acute kidney injury) DEBORAH (acute kidney injury) Disease Active 04-29 00:00: 00 [facility] CVA (cerebral infarction ) CVA (cerebral infarction ) Disease Active 04-17 00:00: 00 [facility] Cerebral infarction Cerebral infarction Disease Active 03-23 00:00: 00 [facility] Slurred speech Slurred speech Disease Active 03-22 00:00: 00 [facility] 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, 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, Senile Onset Problem Active [facility] Hypertensi ve heart disease Hypertensi ve Heart Disease Problem Active [facility] Chronic obstructiv e lung disease Chronic Obstructiv e Lung Disease Problem Active [facility] Hyperlipid emia Hyperlipid emia Problem Active [facility] Allergies, Adverse Reactions, Alerts Allergy Name Allergy Type Status Severity Reaction(s) Onset Date Inactive Date Treating Clinician Comments Source NO KNOWN ALLERGIE S Drug Class Active [facility] Social History Social Habit Start Date Stop Date Quantity Comments Source Gender identity [facility] Sexual orientation U [facility] History SDOH Alcohol Std Drinks [facility] History SDOH Alcohol Comment [place] [facility] History SDOH Physical Activity MPS [facility] History of tobacco use Passive smoker [facility] Alcohol intake 2023-08-19 00:00:00 2023-08-19 00:00:00 1.14 /d [facility] Exposure to SARS-CoV-2 (event) 2023-01-08 00:00:00 2023-01-18 10:33:00 Not sure [facility] Cigarettes smoked current (pack per day) - Reported 2022-05-19 00:00:00 2022-05-19 00:00:00 [facility] Cigarette pack-years 2022-05-19 00:00:00 2022-05-19 00:00:00 [facility] Tobacco use and exposure 2022-05-19 00:00:00 2022-05-19 00:00:00 Smokeless tobacco non-user [facility] History of Social function 2022-04-30 00:00:00 2022-04-30 00:00:00 [facility] History SDOH Alcohol Frequency 2022-04-30 00:00:00 2022-04-30 00:00:00 5 [facility] History SDOH Alcohol Binge 2022-04-30 00:00:00 2022-04-30 00:00:00 5 [facility] History SDOH Social Connections Phone 2022-04-30 00:00:00 2022-04-30 00:00:00 5 [facility] SDOH Social Connections Get Together 2022-04-30 00:00:00 2022-04-30 00:00:00 5 [facility] SDOH Social Connections Scientology 2022-04-30 00:00:00 2022-04-30 00:00:00 1 [facility] SDOH Social Connections Membership 2022-04-30 00:00:00 2022-04-30 00:00:00 1 [facility] SDOH Social Connections Meetings 2022-04-30 00:00:00 2022-04-30 00:00:00 1 [facility] SDOH Social Connections Living 2022-04-30 00:00:00 2022-04-30 00:00:00 6 [facility] SDOH Physical Activity DPW 2022-04-30 00:00:00 2022-04-30 00:00:00 0 [facility] History SDOH Stress 2022-04-30 00:00:00 2022-04-30 00:00:00 3 [facility] History SDOH Financial 2022-04-30 00:00:00 2022-04-30 00:00:00 1 [facility] History SDOH Food Worry 2022-04-30 00:00:00 2022-04-30 00:00:00 3 [facility] History SDOH Food Scarcity 2022-04-30 00:00:00 2022-04-30 00:00:00 3 [facility] History SDOH Transport Med 2022-04-30 00:00:00 2022-04-30 00:00:00 1 [facility] History SDOH Transport Non-Med 2022-04-30 00:00:00 2022-04-30 00:00:00 1 [facility] Sex Assigned At 1950 00:00:00 1950 00:00:00 [facility] Smoking Status Start Date Stop Date Source Heavy Tobacco Smoker [facility] Smokes tobacco daily 2022-05-19 00:00:00 [facility] Ex-smoker 2022-04-30 00:00:00 2022-04-30 00:00:00 [facility] Ordered Medication Name Filled Medication Name Start Date Stop Date Current Medication? Ordering Clinician Indication Dosage Frequency Signature (SIG) Comments Components Source carvediloL 6.25 mg tablet 06-22 10:01: 54 Yes 6.25mg Take 1 tablet by mouth in the morning and 1 tablet in the evening. Take with meals. [facility] atorvastati n 40 mg tablet 06-22 10:01: 54 Yes 40mg Take 1 tablet by mouth at bedtime. [facility] amLODIPine 10 mg tablet 06-22 10:01: 54 Yes 10mg Take 1 tablet by mouth in the morning. [facility] aspirin 81 mg chewable tablet 06-22 10:01: 54 Yes 81mg Take 1 tablet by mouth in the morning. [facility] cloNIDine 0.1 mg tablet 06-22 10:01: 54 Yes .1mg Take 1 tablet by mouth as needed. [facility] divalproex 125 mg EC tablet 06-22 10:01: 54 Yes 125mg Take 1 tablet by mouth in the morning and 1 tablet in the evening. [facility] divalproex 250 mg EC tablet 06-22 10:01: 54 Yes 250mg Take 1 tablet by mouth in the morning and 1 tablet in the evening. [facility] apixaban 5 mg tablet 06-22 10:01: 54 Yes 5mg Take 1 tablet by mouth in the morning and 1 tablet in the evening. [facility] ergocalcife rol, vitamin D2, (ERGOCAL ORAL) 06-22 10:01: 54 Yes 1.25mg Take 1.25 mg by mouth in the morning. [facility] fluticasone -umeclidin- vilanter (TRELEGY ELLIPTA) 200-62.5-25 mcg DsDv 06-22 10:01: 54 Yes Inhale daily. [facility] carvediloL 6.25 mg tablet 06-22 10:01: 54 Yes 6.25mg Take 1 tablet by mouth in the morning and 1 tablet in the evening. Take with meals. [facility] atorvastati n 40 mg tablet 06-22 10:01: 54 Yes 40mg Take 1 tablet by mouth at bedtime. [facility] amLODIPine 10 mg tablet 06-22 10:01: 54 Yes 10mg Take 1 tablet by mouth in the morning. [facility] aspirin 81 mg chewable tablet 06-22 10:01: 54 Yes 81mg Take 1 tablet by mouth in the morning. [facility] cloNIDine 0.1 mg tablet 06-22 10:01: 54 Yes .1mg Take 1 tablet by mouth as needed. [facility] divalproex 125 mg EC tablet 06-22 10:01: 54 Yes 125mg Take 1 tablet by mouth in the morning and 1 tablet in the evening. [facility] divalproex 250 mg EC tablet 06-22 10:01: 54 Yes 250mg Take 1 tablet by mouth in the morning and 1 tablet in the evening. [facility] apixaban 5 mg tablet 06-22 10:01: 54 Yes 5mg Take 1 tablet by mouth in the morning and 1 tablet in the evening. [facility] ergocalcife rol, vitamin D2, (ERGOCAL ORAL) 06-22 10:01: 54 Yes 1.25mg Take 1.25 mg by mouth in the morning. [facility] fluticasone -umeclidin- vilanter (TRELEGY ELLIPTA) 200-62.5-25 mcg DsDv 06-22 10:01: 54 Yes Inhale daily. [facility] carvediloL 6.25 mg tablet 06-22 10:01: 54 Yes 6.25mg Take 1 tablet by mouth in the morning and 1 tablet in the evening. Take with meals. [facility] atorvastati n 40 mg tablet 06-22 10:01: 54 Yes 40mg Take 1 tablet by mouth at bedtime. [facility] amLODIPine 10 mg tablet 06-22 10:01: 54 Yes 10mg Take 1 tablet by mouth in the morning. [facility] aspirin 81 mg chewable tablet 06-22 10:01: 54 Yes 81mg Take 1 tablet by mouth in the morning. [facility] cloNIDine 0.1 mg tablet 06-22 10:01: 54 Yes .1mg Take 1 tablet by mouth as needed. [facility] divalproex 125 mg EC tablet 06-22 10:01: 54 Yes 125mg Take 1 tablet by mouth in the morning and 1 tablet in the evening. [facility] divalproex 250 mg EC tablet 06-22 10:01: 54 Yes 250mg Take 1 tablet by mouth in the morning and 1 tablet in the evening. [facility] apixaban 5 mg tablet 06-22 10:01: 54 Yes 5mg Take 1 tablet by mouth in the morning and 1 tablet in the evening. [facility] ergocalcife rol, vitamin D2, (ERGOCAL ORAL) 06-22 10:01: 54 Yes 1.25mg Take 1.25 mg by mouth in the morning. [facility] fluticasone -umeclidin- vilanter (TRELEGY ELLIPTA) 200-62.5-25 mcg DsDv 06-22 10:01: 54 Yes Inhale daily. [facility] carvediloL 6.25 mg tablet 06-22 10:01: 54 Yes 6.25mg Take 1 tablet by mouth in the morning and 1 tablet in the evening. Take with meals. [facility] atorvastati n 40 mg tablet 06-22 10:01: 54 Yes 40mg Take 1 tablet by mouth at bedtime. [facility] amLODIPine 10 mg tablet 06-22 10:01: 54 Yes 10mg Take 1 tablet by mouth in the morning. [facility] aspirin 81 mg chewable tablet 06-22 10:01: 54 Yes 81mg Take 1 tablet by mouth in the morning. [facility] cloNIDine 0.1 mg tablet 06-22 10:01: 54 Yes .1mg Take 1 tablet by mouth as needed. [facility] divalproex 125 mg EC tablet 06-22 10:01: 54 Yes 125mg Take 1 tablet by mouth in the morning and 1 tablet in the evening. [facility] divalproex 250 mg EC tablet 06-22 10:01: 54 Yes 250mg Take 1 tablet by mouth in the morning and 1 tablet in the evening. [facility] apixaban 5 mg tablet 06-22 10:01: 54 Yes 5mg Take 1 tablet by mouth in the morning and 1 tablet in the evening. [facility] ergocalcife rol, vitamin D2, (ERGOCAL ORAL) 06-22 10:01: 54 Yes 1.25mg Take 1.25 mg by mouth in the morning. [facility] fluticasone -umeclidin- vilanter (TRELEGY ELLIPTA) 200-62.5-25 mcg DsDv 06-22 10:01: 54 Yes Inhale daily. [facility] carvediloL 6.25 mg tablet 06-22 10:01: 54 Yes 6.25mg Take 1 tablet by mouth in the morning and 1 tablet in the evening. Take with meals. [facility] atorvastati n 40 mg tablet 06-22 10:01: 54 Yes 40mg Take 1 tablet by mouth at bedtime. [facility] amLODIPine 10 mg tablet 06-22 10:01: 54 Yes 10mg Take 1 tablet by mouth in the morning. [facility] aspirin 81 mg chewable tablet 06-22 10:01: 54 Yes 81mg Take 1 tablet by mouth in the morning. [facility] cloNIDine 0.1 mg tablet 06-22 10:01: 54 Yes .1mg Take 1 tablet by mouth as needed. [facility] divalproex 125 mg EC tablet 06-22 10:01: 54 Yes 125mg Take 1 tablet by mouth in the morning and 1 tablet in the evening. [facility] divalproex 250 mg EC tablet 06-22 10:01: 54 Yes 250mg Take 1 tablet by mouth in the morning and 1 tablet in the evening. [facility] apixaban 5 mg tablet 06-22 10:01: 54 Yes 5mg Take 1 tablet by mouth in the morning and 1 tablet in the evening. [facility] ergocalcife rol, vitamin D2, (ERGOCAL ORAL) 06-22 10:01: 54 Yes 1.25mg Take 1.25 mg by mouth in the morning. [facility] fluticasone -umeclidin- vilanter (TRELEGY ELLIPTA) 200-62.5-25 mcg DsDv 06-22 10:01: 54 Yes Inhale daily. [facility] carvediloL 6.25 mg tablet 06-22 10:01: 54 Yes 6.25mg Take 1 tablet by mouth in the morning and 1 tablet in the evening. Take with meals. [facility] atorvastati n 40 mg tablet 06-22 10:01: 54 Yes 40mg Take 1 tablet by mouth at bedtime. [facility] carvediloL 6.25 mg tablet 06-22 10:01: 54 Yes 6.25mg Take 1 tablet by mouth in the morning and 1 tablet in the evening. Take with meals. [facility] atorvastati n 40 mg tablet 06-22 10:01: 54 Yes 40mg Take 1 tablet by mouth at bedtime. [facility] amLODIPine 10 mg tablet 06-22 10:01: 54 Yes 10mg Take 1 tablet by mouth in the morning. [facility] aspirin 81 mg chewable tablet 06-22 10:01: 54 Yes 81mg Take 1 tablet by mouth in the morning. [facility] cloNIDine 0.1 mg tablet 06-22 10:01: 54 Yes .1mg Take 1 tablet by mouth as needed. [facility] divalproex 125 mg EC tablet 06-22 10:01: 54 Yes 125mg Take 1 tablet by mouth in the morning and 1 tablet in the evening. [facility] divalproex 250 mg EC tablet 06-22 10:01: 54 Yes 250mg Take 1 tablet by mouth in the morning and 1 tablet in the evening. [facility] apixaban 5 mg tablet 06-22 10:01: 54 Yes 5mg Take 1 tablet by mouth in the morning and 1 tablet in the evening. [facility] ergocalcife rol, vitamin D2, (ERGOCAL ORAL) 06-22 10:01: 54 Yes 1.25mg Take 1.25 mg by mouth in the morning. [facility] fluticasone -umeclidin- vilanter (TRELEGY ELLIPTA) 200-62.5-25 mcg DsDv 06-22 10:01: 54 Yes Inhale daily. [facility] carvediloL 6.25 mg tablet 06-22 10:01: 54 Yes 6.25mg Take 1 tablet by mouth in the morning and 1 tablet in the evening. Take with meals. [facility] atorvastati n 40 mg tablet 06-22 10:01: 54 Yes 40mg Take 1 tablet by mouth at bedtime. [facility] amLODIPine 10 mg tablet 06-22 10:01: 54 Yes 10mg Take 1 tablet by mouth in the morning. [facility] aspirin 81 mg chewable tablet 06-22 10:01: 54 Yes 81mg Take 1 tablet by mouth in the morning. [facility] cloNIDine 0.1 mg tablet 06-22 10:01: 54 Yes .1mg Take 1 tablet by mouth as needed. [facility] divalproex 125 mg EC tablet 06-22 10:01: 54 Yes 125mg Take 1 tablet by mouth in the morning and 1 tablet in the evening. [facility] divalproex 250 mg EC tablet 06-22 10:01: 54 Yes 250mg Take 1 tablet by mouth in the morning and 1 tablet in the evening. [facility] apixaban 5 mg tablet 06-22 10:01: 54 Yes 5mg Take 1 tablet by mouth in the morning and 1 tablet in the evening. [facility] ergocalcife rol, vitamin D2, (ERGOCAL ORAL) 06-22 10:01: 54 Yes 1.25mg Take 1.25 mg by mouth in the morning. [facility] fluticasone -umeclidin- vilanter (TRELEGY ELLIPTA) 200-62.5-25 mcg DsDv 06-22 10:01: 54 Yes Inhale daily. [facility] Depakote 125 mg tablet,dillan yed release Take 1 tablet twice a day by oral route. Depakote 125 mg tablet,dillan yed release Take 1 tablet twice a day by oral route. 02-04 00:00: 00 No 1 BID Depakote 125 mg tablet,del ayed release Take 1 tablet twice a day by oral route. [facility] Depakote 125 mg tablet,dillan yed release Take 1 tablet twice a day by oral route. Depakote 125 mg tablet,dillan yed release Take 1 tablet twice a day by oral route. 02-04 00:00: 00 No 1 BID Depakote 125 mg tablet,del ayed release Take 1 tablet twice a day by oral route. [facility] rivastigmin e tartrate 3 mg capsule 0 01-18 00:00: 00 Yes [id number] 01 3mg Take 1 capsule by mouth every morning and evening. [facility] divalproex (DEPAKOTE) 500 mg EC tablet 0 01-18 00:00: 00 Yes [id number] 01 500mg Take 1 tablet by mouth at bedtime. [facility] rivastigmin e tartrate 3 mg capsule 0 01-18 00:00: 00 Yes [id number] 01 3mg Take 1 capsule by mouth every morning and evening. [facility] divalproex (DEPAKOTE) 500 mg EC tablet 0 01-18 00:00: 00 Yes [id number] 01 500mg Take 1 tablet by mouth at bedtime. [facility] rivastigmin e tartrate 3 mg capsule 0 01-18 00:00: 00 Yes [id number] 01 3mg Take 1 capsule by mouth every morning and evening. [facility] divalproex (DEPAKOTE) 500 mg EC tablet 01-18 00:00: 00 Yes [id number] 01 500mg Take 1 tablet by mouth at bedtime. [facility] rivastigmin e tartrate 3 mg capsule 0 01-18 00:00: 00 Yes [id number] 01 3mg Take 1 capsule by mouth every morning and evening. [facility] divalproex (DEPAKOTE) 500 mg EC tablet 0 01-18 00:00: 00 Yes [id number] 01 500mg Take 1 tablet by mouth at bedtime. [facility] rivastigmin e tartrate 3 mg capsule 0 01-18 00:00: 00 Yes [id number] 01 3mg Take 1 capsule by mouth every morning and evening. [facility] divalproex (DEPAKOTE) 500 mg EC tablet 0 01-18 00:00: 00 Yes [id number] 01 500mg Take 1 tablet by mouth at bedtime. [facility] rivastigmin e tartrate 3 mg capsule 2022-0 01-18 00:00: 00 Yes [id number] 01 3mg Take 1 capsule by mouth every morning and evening. [facility] divalproex (DEPAKOTE) 500 mg EC tablet 0 01-18 00:00: 00 Yes [id number] 01 500mg Take 1 tablet by mouth at bedtime. [facility] rivastigmin e tartrate 3 mg capsule 0 01-18 00:00: 00 Yes [id number] 01 3mg Take 1 capsule by mouth every morning and evening. [facility] divalproex (DEPAKOTE) 500 mg EC tablet 0 01-18 00:00: 00 Yes [id number] 01 500mg Take 1 tablet by mouth at bedtime. [facility] rivastigmin e tartrate 3 mg capsule 0 01-18 00:00: 00 Yes [id number] 01 3mg Take 1 capsule by mouth every morning and evening. [facility] divalproex (DEPAKOTE) 500 mg EC tablet 0 01-18 00:00: 00 Yes [id number] 01 500mg Take 1 tablet by mouth at bedtime. [facility] rivastigmin e tartrate 3 mg capsule 0 01-18 00:00: 00 Yes [id number] 01 3mg Take 1 capsule by mouth every morning and evening. [facility] divalproex (DEPAKOTE) 500 mg EC tablet 0 01-18 00:00: 00 Yes [id number] 01 500mg Take 1 tablet by mouth at bedtime. [facility] rivastigmin e tartrate 3 mg capsule 2022-0 01-18 00:00: 00 Yes [id number] 01 3mg Take 1 capsule by mouth every morning and evening. [facility] divalproex (DEPAKOTE) 500 mg EC tablet 0 01-18 00:00: 00 Yes [id number] 01 500mg Take 1 tablet by mouth at bedtime. [facility] rivastigmin e tartrate 3 mg capsule 2022-0 01-18 00:00: 00 Yes [id number] 01 3mg Take 1 capsule by mouth every morning and evening. [facility] divalproex (DEPAKOTE) 500 mg EC tablet 01-18 00:00: 00 Yes [id number] 01 500mg Take 1 tablet by mouth at bedtime. [facility] rivastigmin e 1.5 mg capsule Take 1 capsule twice a day by oral route. rivastigmin e 1.5 mg capsule Take 1 capsule twice a day by oral route. 01-11 00:00: 00 No rivastigmi ne 1.5 mg capsule Take 1 capsule twice a day by oral route. [facility] rivastigmin e 1.5 mg capsule Take 1 capsule twice a day by oral route. rivastigmin e 1.5 mg capsule Take 1 capsule twice a day by oral route. 01-11 00:00: 00 No rivastigmi ne 1.5 mg capsule Take 1 capsule twice a day by oral route. [facility] rivastigmin e tartrate 1.5 mg capsule 2021-10 00:00: 00 Yes [id number] 1.5mg Take 1 capsule by mouth every morning and evening. [facility] rivastigmin e tartrate 1.5 mg capsule 2021-10 00:00: 00 Yes [id number] 1.5mg Take 1 capsule by mouth every morning and evening. [facility] rivastigmin e tartrate 1.5 mg capsule 2021-10 00:00: 00 Yes [id number] 1.5mg Take 1 capsule by mouth every morning and evening. [facility] rivastigmin e tartrate 1.5 mg capsule 2021-10 00:00: 00 Yes [id number] 1.5mg Take 1 capsule by mouth every morning and evening. [facility] rivastigmin e tartrate 1.5 mg capsule 2021-10 00:00: 00 01-18 00:00 :00 No [id number] 1.5mg Take 1 capsule by mouth every morning and evening. [facility] rivastigmin e tartrate 1.5 mg capsule 2021-10 00:00: 00 01-18 00:00 :00 No [id number] 1.5mg Take 1 capsule by mouth every morning and evening. [facility] rivastigmin e tartrate 1.5 mg capsule 2021-10 00:00: 00 01-18 00:00 :00 No [id number] 1.5mg Take 1 capsule by mouth every morning and evening. [facility] carvediloL 6.25 mg tablet 2021-10 12:49: 21 Yes 6.25mg Take 6.25 mg by mouth in the morning and 6.25 mg in the evening. Take with meals. [facility] carvediloL 6.25 mg tablet 2021-10 12:49: 21 Yes 6.25mg Take 6.25 mg by mouth in the morning and 6.25 mg in the evening. Take with meals. [facility] carvediloL 6.25 mg tablet 2021-10 12:49: 21 Yes 6.25mg Take 6.25 mg by mouth in the morning and 6.25 mg in the evening. Take with meals. [facility] carvediloL 6.25 mg tablet 2021-10 12:49: 21 Yes 6.25mg Take 6.25 mg by mouth in the morning and 6.25 mg in the evening. Take with meals. [facility] [facility] carvediloL 6.25 mg tablet 2021-10 12:49: 21 Yes 6.25mg Take 6.25 mg by mouth in the morning and 6.25 mg in the evening. Take with meals. [facility] carvediloL 6.25 mg tablet 2021-10 12:49: 21 Yes 6.25mg Take 6.25 mg by mouth in the morning and 6.25 mg in the evening. Take with meals. [facility] carvediloL 6.25 mg tablet 2021-10 12:49: 21 Yes 6.25mg Take 6.25 mg by mouth in the morning and 6.25 mg in the evening. Take with meals. [facility] carvediloL 6.25 mg tablet 2021-10 12:49: 21 Yes 6.25mg Take 6.25 mg by mouth in the morning and 6.25 mg in the evening. Take with meals. [facility] carvediloL 6.25 mg tablet 2021-10 12:49: 21 Yes 6.25mg Take 6.25 mg by mouth in the morning and 6.25 mg in the evening. Take with meals. [facility] carvediloL 6.25 mg tablet 2021-10 12:49: 21 Yes 6.25mg Take 6.25 mg by mouth in the morning and 6.25 mg in the evening. Take with meals. [facility] carvediloL 6.25 mg tablet 2021-10 12:49: 21 Yes 6.25mg Take 6.25 mg by mouth in the morning and 6.25 mg in the evening. Take with meals. [facility] carvediloL 6.25 mg tablet 2021-10 12:49: 21 Yes 6.25mg Take 6.25 mg by mouth in the morning and 6.25 mg in the evening. Take with meals. [facility] carvediloL 6.25 mg tablet 2021-10 12:49: 21 Yes 6.25mg Take 6.25 mg by mouth in the morning and 6.25 mg in the evening. Take with meals. [facility] carvediloL 6.25 mg tablet 2021-10 09:12: 49 Yes 6.25mg Take 6.25 mg by mouth in the morning and 6.25 mg in the evening. Take with meals. [facility] atorvastati n 40 mg tablet 2021-10 09:12: 49 Yes 40mg Take 40 mg by mouth at bedtime. [facility] carvediloL 6.25 mg tablet 2021-10 09:12: 49 Yes 6.25mg Take 6.25 mg by mouth in the morning and 6.25 mg in the evening. Take with meals. [facility] atorvastati n 40 mg tablet 2021-10 09:12: 49 Yes 40mg Take 40 mg by mouth at bedtime. [facility] carvediloL 6.25 mg tablet 2021-10 09:12: 49 Yes 6.25mg Take 6.25 mg by mouth in the morning and 6.25 mg in the evening. Take with meals. [facility] atorvastati n 40 mg tablet 2021-10 09:12: 49 Yes 40mg Take 40 mg by mouth at bedtime. [facility] carvediloL 6.25 mg tablet 2021-10 09:12: 49 Yes 6.25mg Take 6.25 mg by mouth in the morning and 6.25 mg in the evening. Take with meals. [facility] atorvastati n 40 mg tablet 2021-10 09:12: 49 Yes 40mg Take 40 mg by mouth at bedtime. [facility] carvediloL 6.25 mg tablet 2021-10 09:12: 49 Yes 6.25mg Take 6.25 mg by mouth in the morning and 6.25 mg in the evening. Take with meals. [facility] atorvastati n 40 mg tablet 2021-10 09:12: 49 Yes 40mg Take 40 mg by mouth at bedtime. [facility] carvediloL 6.25 mg tablet 2021-10 09:12: 49 Yes 6.25mg Take 6.25 mg by mouth in the morning and 6.25 mg in the evening. Take with meals. [facility] atorvastati n 40 mg tablet 2021-10 09:12: 49 Yes 40mg Take 40 mg by mouth at bedtime. [facility] atorvastati n 40 mg tablet 2021-10 09:12: 49 Yes 40mg Take 40 mg by mouth at bedtime. [facility] atorvastati n 40 mg tablet 2021-10 09:12: 49 Yes 40mg Take 40 mg by mouth at bedtime. [facility] atorvastati n 40 mg tablet 2021-10 09:12: 49 Yes 40mg Take 40 mg by mouth at bedtime. [facility] atorvastati n 40 mg tablet 2021-10 09:12: 49 Yes 40mg Take 40 mg by mouth at bedtime. [facility] atorvastati n 40 mg tablet 2021-10 09:12: 49 Yes 40mg Take 40 mg by mouth at bedtime. [facility] atorvastati n 40 mg tablet 2021-10 09:12: 49 Yes 40mg Take 40 mg by mouth at bedtime. [facility] atorvastati n 40 mg tablet 2021-10 09:12: 49 Yes 40mg Take 40 mg by mouth at bedtime. [facility] atorvastati n 40 mg tablet 2021-10 09:12: 49 Yes 40mg Take 40 mg by mouth at bedtime. [facility] atorvastati n 40 mg tablet 2021-10 09:12: 49 Yes 40mg Take 40 mg by mouth at bedtime. [facility] atorvastati n 40 mg tablet 2021-10 09:12: 49 Yes 40mg Take 40 mg by mouth at bedtime. [facility] atorvastati n 40 mg tablet 2021-10 09:12: 49 Yes 40mg Take 40 mg by mouth at bedtime. [facility] atorvastati n 40 mg tablet 2021-10 09:12: 49 Yes 40mg Take 40 mg by mouth at bedtime. [facility] atorvastati n 40 mg tablet 2021-10 09:12: 49 Yes 40mg Take 40 mg by mouth at bedtime. [facility] carvediloL (COREG) 6.25 mg tablet 05-19 12:55: 25 Yes 6.25mg Take 6.25 mg by mouth in the morning and 6.25 mg in the evening. Take with meals. [facility] atorvastati n 40 mg tablet 05-19 12:55: 25 Yes 40mg Take 40 mg by mouth at bedtime. [facility] carvediloL (COREG) 6.25 mg tablet 05-19 12:55: 25 Yes 6.25mg Take 6.25 mg by mouth in the morning and 6.25 mg in the evening. Take with meals. [facility] atorvastati n 40 mg tablet 05-19 12:55: 25 Yes 40mg Take 40 mg by mouth at bedtime. [facility] carvediloL (COREG) 6.25 mg tablet 05-19 12:55: 25 Yes 6.25mg Take 6.25 mg by mouth in the morning and 6.25 mg in the evening. Take with meals. [facility] atorvastati n 40 mg tablet 05-19 12:55: 25 Yes 40mg Take 40 mg by mouth at bedtime. [facility] carvediloL (COREG) 6.25 mg tablet 05-19 12:55: 25 Yes 6.25mg Take 6.25 mg by mouth in the morning and 6.25 mg in the evening. Take with meals. [facility] atorvastati n 40 mg tablet 05-19 12:55: 25 Yes 40mg Take 40 mg by mouth at bedtime. [facility] carvediloL (COREG) 6.25 mg tablet 05-19 12:55: 25 Yes 6.25mg Take 6.25 mg by mouth in the morning and 6.25 mg in the evening. Take with meals. [facility] atorvastati n 40 mg tablet 05-19 12:55: 25 Yes 40mg Take 40 mg by mouth at bedtime. [facility] carvediloL (COREG) 6.25 mg tablet 05-19 12:55: 25 Yes 6.25mg Take 6.25 mg by mouth in the morning and 6.25 mg in the evening. Take with meals. [facility] atorvastati n 40 mg tablet 05-19 12:55: 25 Yes 40mg Take 40 mg by mouth at bedtime. [facility] carvediloL (COREG) 6.25 mg tablet 05-19 12:55: 25 Yes 6.25mg Take 6.25 mg by mouth in the morning and 6.25 mg in the evening. Take with meals. [facility] atorvastati n 40 mg tablet 05-19 12:55: 25 Yes 40mg Take 40 mg by mouth at bedtime. [facility] carvediloL (COREG) 6.25 mg tablet 05-19 12:55: 25 Yes 6.25mg Take 6.25 mg by mouth in the morning and 6.25 mg in the evening. Take with meals. [facility] atorvastati n 40 mg tablet 05-19 12:55: 25 Yes 40mg Take 40 mg by mouth at bedtime. [facility] carvediloL (COREG) 6.25 mg tablet 05-19 12:55: 25 Yes 6.25mg Take 6.25 mg by mouth in the morning and 6.25 mg in the evening. Take with meals. [facility] atorvastati n 40 mg tablet 05-19 12:55: 25 Yes 40mg Take 40 mg by mouth at bedtime. [facility] carvediloL (COREG) 6.25 mg tablet 05-19 12:55: 25 Yes 6.25mg Take 6.25 mg by mouth in the morning and 6.25 mg in the evening. Take with meals. [facility] atorvastati n 40 mg tablet 05-19 12:55: 25 Yes 40mg Take 40 mg by mouth at bedtime. [facility] carvediloL (COREG) 6.25 mg tablet 05-19 12:55: 25 Yes 6.25mg Take 6.25 mg by mouth in the morning and 6.25 mg in the evening. Take with meals. [facility] atorvastati n 40 mg tablet 05-19 12:55: 25 Yes 40mg Take 40 mg by mouth at bedtime. [facility] carvediloL (COREG) 6.25 mg tablet 05-19 12:55: 25 Yes 6.25mg Take 6.25 mg by mouth in the morning and 6.25 mg in the evening. Take with meals. [facility] atorvastati n 40 mg tablet 05-19 12:55: 25 Yes 40mg Take 40 mg by mouth at bedtime. [facility] carvediloL (COREG) 6.25 mg tablet 05-19 12:55: 25 Yes 6.25mg Take 6.25 mg by mouth in the morning and 6.25 mg in the evening. Take with meals. [facility] atorvastati n 40 mg tablet 05-19 12:55: 25 Yes 40mg Take 40 mg by mouth at bedtime. [facility] NaCl 0.9% (NS) bolus infusion 1,000 mL 05-02 18:15: 00 05-02 19:04 :00 No 1000mL at 999 mL/hr, 1,000 mL, IV Infusion, ONCE, 1 dose, On 05/02/22 at 1315, ARUNA [facility] No known medications 05-02 15:35: 06 No No known medication s [facility] No known medications 05-02 15:35: 06 No No known medication s [facility] ketorolac (TORADOL) tablet 10 mg 05-01 15:00: 00 05-01 15:30 :00 No 10mg 10 mg, Oral, ONCE, 1 dose, On Wed05/01/22 at 1000, Routine [facility] ketorolac (TORADOL) tablet 10 mg 05-01 14:56: 04 Yes 10mg 10 mg, Oral, Q6HPRN, Starting on Wed05/01/22 at 0956, Until Discontinu ed, Routine, Pain (scale 1-3), Pain (scale 4-6) [facility] atorvastati n (LIPITOR) tablet 40 mg 05-01 02:00: 00 Yes 40mg 40 mg, Oral, QHS, First dose on Brie 04/30/22 at 2100, Until Discontinu ed, Routine [facility] heparin (porcine) injection 5,000 Units 05-01 01:00: 00 Yes 5000U 5,000 Units, Subcutaneo us, Q12H, First dose on Wed04/30/22 at 1999, Until Discontinu ed, Routine [facility] atorvastati n 40 mg tablet 05-01 00:00: 00 05-16 04:59 :00 No [id number] 40mg Take 1 tablet by mouth at bedtime for 14 days. [facility] carvediloL 6.25 mg tablet 05-01 00:00: 00 05-16 04:59 :00 No [id number] 6.25mg Take 1 tablet by mouth 2 (two) times daily with meals for 14 days. [facility] atorvastati n 40 mg tablet 05-01 00:00: 00 05-16 04:59 :00 No [id number] 40mg Take 1 tablet by mouth at bedtime for 14 days. [facility] carvediloL 6.25 mg tablet 05-01 00:00: 00 05-16 04:59 :00 No [id number] 6.25mg Take 1 tablet by mouth 2 (two) times daily with meals for 14 days. [facility] atorvastati n 40 mg tablet 05-01 00:00: 00 05-16 04:59 :00 No [id number] 40mg Take 1 tablet by mouth at bedtime for 14 days. [facility] carvediloL 6.25 mg tablet 05-01 00:00: 00 05-16 04:59 :00 No [id number] 6.25mg Take 1 tablet by mouth 2 (two) times daily with meals for 14 days. [facility] atorvastati n 40 mg tablet 05-01 00:00: 00 05-16 04:59 :00 No [id number] 40mg Take 1 tablet by mouth at bedtime for 14 days. [facility] carvediloL 6.25 mg tablet 05-01 00:00: 05-16 04:59 :00 No [id number] 6.25mg Take 1 tablet by mouth 2 (two) times daily with meals for 14 days. [facility] atorvastati n 40 mg tablet 05-01 00:00: 00 05-16 04:59 :00 No [id number] 40mg Take 1 tablet by mouth at bedtime for 14 days. [facility] carvediloL 6.25 mg tablet 05-01 00:00: 00 05-16 04:59 :00 No [id number] 6.25mg Take 1 tablet by mouth 2 (two) times daily with meals for 14 days. [facility] atorvastati n 40 mg tablet 05-01 00:00: 00 05-16 04:59 :00 No [id number] 40mg Take 1 tablet by mouth at bedtime for 14 days. [facility] carvediloL 6.25 mg tablet 05-01 00:00: 05-16 04:59 :00 No [id number] 6.25mg Take 1 tablet by mouth 2 (two) times daily with meals for 14 days. [facility] naproxen 250 mg tablet 05-01 00:00: 00 05-09 04:59 :00 No [id number] 250mg Take 1 tablet by mouth 2 (two) times daily as needed for Pain (scale 4-6) for up to 7 days. [facility] naproxen 250 mg tablet 05-01 00:00: 00 05-09 04:59 :00 No [id number] 250mg Take 1 tablet by mouth 2 (two) times daily as needed for Pain (scale 4-6) for up to 7 days. [facility] naproxen 250 mg tablet 05-01 00:00: 00 05-09 04:59 :00 No [id number] 250mg Take 1 tablet by mouth 2 (two) times daily as needed for Pain (scale 4-6) for up to 7 days. [facility] naproxen 250 mg tablet 05-01 00:00: 00 05-09 04:59 :00 No [id number] 250mg Take 1 tablet by mouth 2 (two) times daily as needed for Pain (scale 4-6) for up to 7 days. [facility] naproxen 250 mg tablet 05-01 00:00: 00 05-09 04:59 :00 No [id number] 250mg Take 1 tablet by mouth 2 (two) times daily as needed for Pain (scale 4-6) for up to 7 days. [facility] D5W IV infusion 1,000 mL 04-30 15:15: 00 04-30 14:13 :00 No 1000mL at 75 mL/hr, IV Infusion, ONCE, 1 dose, On Brie 04/30/22 at 1015, Routine [facility] NaCl 0.9% (NS) bolus infusion 1,000 mL 04-30 04:15: 00 04-30 12:00 :13 No 1000mL at 100 mL/hr, 1,000 mL, IV Piggyback, CONTINUOUS , Starting on Wed04/29/22 at 2315, Until Brie 04/30/22 at 0700, ARUNA [facility] carvediloL (COREG) tablet 6.25 mg 04-30 03:30: 00 Yes 6.25mg 6.25 mg, Oral, BID MEALS, First dose on Wed04/29/22 at 2230, Until Discontinu ed, Routine [facility] HEPARIN SODIUM (PORCINE) 1,000 UNIT/ML BOLUS ACS ORDER SET 04-30 03:30: 00 04-30 05:27 :00 No 60U/kg 3,810 Units (60 Units/kg ?63.5 kg), IV Push, ONCE, 1 dose, On Wed04/29/22 at 2230, ARUNA [facility] heparin 25,000 Units/250 mL (Premixed Bag) [...] Rang e, Dosing and Testing: &nbs p;FOR [facility], AND [facility] ONLY &nbs p; - aPTT < 35: [...] INITIAL BOLUS OR INITIAL INFUSION RATE.
[facility] acetaminoph en (TYLENOL) tablet 650 mg 04-30 01:46: 25 Yes 650mg 650 mg, Oral, Q6HPRN, Starting on Wed04/29/22 at 2046, Until Discontinu ed, Routine, Pain (scale 1-3) [facility] NaCl 0.9% (NS) bolus infusion 1,000 mL 04-29 22:48: 00 04-30 02:01 :00 No 1000mL at 999 mL/hr, 1,000 mL, IV Piggyback, ONCE, 1 dose, On Wed04/29/22 at 1800, STAT [facility] diltiazem (CARDIZEM) tablet 30 mg 04-29 22:46: 00 04-29 23:18 :00 No 30mg 30 mg, Oral, ONCE, 1 dose, On Wed04/29/22 at 1800, ARUNA [facility] diltiazem (CARDIZEM IV) injection 10 mg 04-29 22:45: 00 04-29 23:59 :00 No 10mg 10 mg, Slow IV Push, ONCE, 1 dose, On Wed04/29/22 at 1800, STAT
Fa culty member approving Restricted medication : AGUILA DALTON [facility] aspirin chewable tablet 324 mg 04-29 22:30: 00 04-29 23:18 :00 No 324mg 324 mg, Oral, ONCE, 1 dose, On Wed04/29/22 at 1730, STAT [facility] lisinopril- hydrochloro thiazide (PRINZIDE,Z ESTORETIC) 20-25 mg per tablet 04-29 20:46: 48 04-29 00:00 :00 No 1{tbl} Take 1 Tab by mouth daily. [facility] amLODIPine (NORVASC) 5 mg tablet 04-29 20:46: 48 04-29 00:00 :00 No 5mg Take 5 mg by mouth daily. [facility] atorvastati n (LIPITOR) 20 mg tablet 04-29 20:46: 48 04-29 00:00 :00 No 20mg Take 20 mg by mouth at bedtime. [facility] clopidogrel (PLAVIX) 75 mg tablet 04-29 20:46: 48 04-29 00:00 :00 No 75mg Take 75 mg by mouth daily. [facility] acetaminoph en (TYLENOL EXTRA STRENGTH) 500 mg tablet 04-29 20:46: 48 04-29 00:00 :00 No 1000mg Take 1,000 mg by mouth every 6 (six) hours as needed for Pain. [facility] cephALEXin (KEFLEX) 500 mg capsule 04-29 20:46: 48 04-29 00:00 :00 No 500mg Take 500 mg by mouth 4 (four) times daily. [facility] NaCl 0.9% (NS) bolus infusion 1,000 mL 04-29 00:45: 00 04-29 02:00 :00 No 1000mL at 999 mL/hr, 1,000 mL, IV Infusion, ONCE, 1 dose, On Wed04/28/22 at 1945, STAT [facility] aspirin tablet 325 mg 04-28 23:45: 00 04-29 00:35 :00 No 325mg 325 mg, Oral, ONCE, 1 dose, On Wed04/28/22 at 1845, STAT [facility] diltiazem (CARDIZEM IV) injection 20 mg 04-28 23:45: 00 04-28 23:37 :00 No 20mg 20 mg, IV Push, ONCE, 1 dose, On Wed04/28/22 at 1845, STAT
Fa culty member approving Restricted medication : BERNARDO RODRÍGUEZ [facility] lisinopril- hydrochloro thiazide (PRINZIDE,Z ESTORETIC) 20-25 mg per tablet 06-28 15:32: 57 Yes 1{tbl} Take 1 Tab by mouth daily. [facility] amLODIPine (NORVASC) 5 mg tablet 06-28 15:32: 57 Yes 5mg Take 5 mg by mouth daily. [facility] atorvastati n (LIPITOR) 20 mg tablet 06-28 15:32: 57 Yes 20mg Take 20 mg by mouth at bedtime. [facility] clopidogrel (PLAVIX) 75 mg tablet 06-28 15:32: 57 Yes 75mg Take 75 mg by mouth daily. [facility] acetaminoph en (TYLENOL EXTRA STRENGTH) 500 mg tablet 06-28 15:32: 57 Yes 1000mg Take 1,000 mg by mouth every 6 (six) hours as needed for Pain. [facility] cephALEXin (KEFLEX) 500 mg capsule 2014-0 9-04 15:32: 57 Yes 500mg Take 500 mg by mouth 4 (four) times daily. [facility] ipratropium 0.5 mg-albutero l 3 mg [...] by inhalation route for 30 days. [facility] amlodipine 10 mg tablet Take 1 [...] tablet every day by oral route. [facility] atorvastati n 40 mg tablet Take 1 tablet every day by oral route. atorvastati n 40 mg tablet Take 1 tablet every day by oral route. No atorvastat in 40 mg tablet Take 1 tablet every day by oral route. [facility] carvedilol 6.25 mg tablet Take 1 tablet twice a day by oral route. carvedilol 6.25 mg tablet Take 1 tablet twice a day by oral route. No carvedilol 6.25 mg tablet Take 1 tablet twice a day by oral route. [facility] clonidine HCl 0.1 mg tablet Take 1 tablet every day by oral route as needed. clonidine HCl 0.1 mg tablet Take 1 tablet every day by oral route as needed. No 1 Q1D clonidine HCl 0.1 mg tablet Take 1 tablet every day by oral route as needed. [facility] diclofenac 1 % topical gel APPLY [...] oral route for 30 days. [facility] ergocalcife rol (vitamin D2) 1,250 mcg [...] day by inhalation route for 30 days. [facility] amlodipine 10 mg tablet Take 1 tablet every day by oral route. amlodipine 10 mg tablet Take 1 tablet every day by oral route. No amlodipine 10 mg tablet Take 1 tablet every day by oral route. [facility] aspirin 81 mg tablet,dillan yed release Take 1 tablet every day by oral route. aspirin 81 mg tablet,dillan yed release Take 1 tablet every day by oral route. No 1 Q1D aspirin 81 mg tablet,del ayed release Take 1 tablet every day by oral route. [facility] atorvastati n 40 mg tablet Take 1 tablet every day by oral route. atorvastati n 40 mg tablet Take 1 tablet every day by oral route. No atorvastat in 40 mg tablet Take 1 tablet every day by oral route. [facility] carvedilol 6.25 mg tablet Take 1 tablet twice a day by oral route. carvedilol 6.25 mg tablet Take 1 tablet twice a day by oral route. No carvedilol 6.25 mg tablet Take 1 tablet twice a day by oral route. [facility] clonidine HCl 0.1 mg tablet Take 1 tablet every day by oral route as needed. clonidine HCl 0.1 mg tablet Take 1 tablet every day by oral route as needed. No 1 Q1D clonidine HCl 0.1 mg tablet Take 1 tablet every day by oral route as needed. [facility] diclofenac 1 % topical gel APPLY 2 GRAMS TO THE AFFECTED AREA(S) BY TOPICAL ROUTE 2 TIMES PER DAY (KNEES) diclofenac 1 % topical gel APPLY 2 GRAMS TO THE AFFECTED AREA(S) BY TOPICAL ROUTE 2 TIMES PER DAY (KNEES) No diclofenac 1 % topical gel APPLY 2 GRAMS TO THE AFFECTED AREA(S) BY TOPICAL ROUTE 2 TIMES PER DAY (KNEES) [facility] divalproex 250 mg tablet,dillan yed release divalproex 250 mg tablet,dillan yed release No divalproex 250 mg tablet,del ayed release [facility] Eliquis 5 mg tablet Take 1 tablet twice a day by oral route for 30 days. Eliquis 5 mg tablet Take 1 tablet twice a day by oral route for 30 days. No Eliquis 5 mg tablet Take 1 tablet twice a day by oral route for 30 days. [facility] ergocalcife rol (vitamin D2) 1,250 mcg (50,000 [...] days. [facility] acetaminoph en 300 mg-codeine 60 mg tablet Take 1 tablet every 6 hours by oral route as needed for 10 days. acetaminoph en 300 mg-codeine 60 mg tablet Take 1 tablet every 6 hours by oral route as needed for 10 days. No 1 Q6H acetaminop hen 300 mg-codeine 60 mg tablet Take 1 tablet every 6 hours by oral route as needed for 10 days. [facility] amlodipine 10 mg tablet Take 1 [...] tablet every day by oral route. [facility] atorvastati n 40 mg tablet Take 1 tablet every day by oral route. atorvastati n 40 mg tablet Take 1 tablet every day by oral route. No atorvastat in 40 mg tablet Take 1 tablet every day by oral route. [facility] carvedilol 6.25 mg tablet Take 1 tablet twice a day by oral route. carvedilol 6.25 mg tablet Take 1 tablet twice a day by oral route. No carvedilol 6.25 mg tablet Take 1 tablet twice a day by oral route. [facility] clonidine HCl 0.1 mg tablet Take 1 tablet every day by oral route as needed. clonidine HCl 0.1 mg tablet Take 1 tablet every day by oral route as needed. No 1 Q1D clonidine HCl 0.1 mg tablet Take 1 tablet every day by oral route as needed. [facility] diclofenac 1 % topical gel APPLY [...] No divalproex 250 mg tablet,del ayed release [facility] Eliquis 5 mg tablet Take 1 tablet twice a day by oral route for 30 days. Eliquis 5 mg tablet Take 1 tablet twice a day by oral route for 30 days. No Eliquis 5 mg tablet Take 1 tablet twice a day by oral route for 30 days. [facility] ergocalcife rol (vitamin D2) 1,250 mcg (50,000 unit) capsule Take 1 unit every month by oral route for 28 days. ergocalcife rol (vitamin D2) 1,250 mcg (50,000 unit) capsule Take 1 unit every month by oral route for 28 days. No ergocalcif marlee (vitamin D2) 1,250 mcg (50,000 unit) capsule Take 1 unit every month by oral route for 28 days. [facility] ipratropium 0.5 mg-albutero l 3 mg [...] day by nebulizati on route as needed. [facility] lactulose 10 gram/15 mL oral solution lactulose 10 gram/15 mL oral solution No lactulose 10 gram/15 mL oral solution [facility] lidocaine 5 % topical patch lidocaine 5 % topical patch No lidocaine 5 % topical patch [facility] mirtazapine 7.5 mg tablet mirtazapine 7.5 mg tablet No mirtazapin e 7.5 mg tablet [facility] potassium chloride ER 10 mEq tablet,exte nded release(par t/cryst) potassium chloride ER 10 mEq tablet,exte nded release(par t/cryst) No potassium chloride ER 10 mEq tablet,ext ended release(pa rt/cryst) [facility] Trelegy Ellipta 200 mcg-62.5 mcg-25 mcg powder for inhalation Inhale 1 puff every day by inhalation route for 30 days. Trelegy Ellipta 200 mcg-62.5 mcg-25 mcg powder for inhalation Inhale 1 puff every day by inhalation route for 30 days. No Trelegy Ellipta 200 mcg-62.5 mcg-25 mcg powder for inhalation Inhale 1 puff every day by inhalation route for 30 days. [facility] acetaminoph en 300 mg-codeine 30 mg [...] oral route as needed for 10 days. [facility] aspirin 81 mg tablet,dillan yed release Take 1 tablet every day by oral route. aspirin 81 mg tablet,dillan yed release Take 1 tablet every day by oral route. No 1 Q1D aspirin 81 mg tablet,del ayed release Take 1 tablet every day by oral route. [facility] atorvastati n 40 mg tablet Take 1 tablet every day by oral route. atorvastati n 40 mg tablet Take 1 tablet every day by oral route. No 1 Q1D atorvastat in 40 mg tablet Take 1 tablet every day by oral route. [facility] carvedilol 6.25 mg tablet Take 1 tablet twice a day by oral route. carvedilol 6.25 mg tablet Take 1 tablet twice a day by oral route. No 1 BID carvedilol 6.25 mg tablet Take 1 tablet twice a day by oral route. [facility] cephalexin 500 mg tablet Take 1 tablet every 12 hours by oral route. cephalexin 500 mg tablet Take 1 tablet every 12 hours by oral route. No 1 Q12H cephalexin 500 mg tablet Take 1 tablet every 12 hours by oral route. [facility] ipratropium 0.5 mg-albutero l 2.5 mg/2.5 [...] 6 hours by inhalation route as needed. [facility] acetaminoph en 300 mg-codeine 30 mg [...] oral route as needed for 10 days. [facility] aspirin 81 mg tablet,dillan yed release Take 1 tablet every day by oral route. aspirin 81 mg tablet,dillan yed release Take 1 tablet every day by oral route. No 1 Q1D aspirin 81 mg tablet,del ayed release Take 1 tablet every day by oral route. [facility] atorvastati n 40 mg tablet Take 1 tablet every day by oral route. atorvastati n 40 mg tablet Take 1 tablet every day by oral route. No 1 Q1D atorvastat in 40 mg tablet Take 1 tablet every day by oral route. [facility] carvedilol 6.25 mg tablet Take 1 tablet twice a day by oral route. carvedilol 6.25 mg tablet Take 1 tablet twice a day by oral route. No 1 BID carvedilol 6.25 mg tablet Take 1 tablet twice a day by oral route. [facility] cephalexin 500 mg tablet Take 1 tablet every 12 hours by oral route. cephalexin 500 mg tablet Take 1 tablet every 12 hours by oral route. No 1 Q12H cephalexin 500 mg tablet Take 1 tablet every 12 hours by oral route. [facility] ipratropium 0.5 mg-albutero l 2.5 mg/2.5 [...] hours by inhalation route as needed. [facility] acetaminoph en 300 mg-codeine 30 mg [...] tablet every day by oral route. [facility] carvedilol 6.25 mg tablet Take 1 tablet twice a day by oral route. carvedilol 6.25 mg tablet Take 1 tablet twice a day by oral route. No 1 BID carvedilol 6.25 mg tablet Take 1 tablet twice a day by oral route. [facility] ipratropium 0.5 mg-albutero l 2.5 mg/2.5 [...] hours by inhalation route as needed. [facility] acetaminoph en 300 mg-codeine 30 mg [...] oral route as needed for 10 days. [facility] apixaban 5 mg tablet Take 1 tablet twice a day by oral route for 30 days. apixaban 5 mg tablet Take 1 tablet twice a day by oral route for 30 days. No 1 BID apixaban 5 mg tablet Take 1 tablet twice a day by oral route for 30 days. [facility] aspirin 81 mg tablet,dillan yed release Take 1 tablet every day by oral route. aspirin 81 mg tablet,dillan yed release Take 1 tablet every day by oral route. No 1 Q1D aspirin 81 mg tablet,del ayed release Take 1 tablet every day by oral route. [facility] atorvastati n 40 mg tablet Take 1 tablet every day by oral route. atorvastati n 40 mg tablet Take 1 tablet every day by oral route. No 1 Q1D atorvastat in 40 mg tablet Take 1 tablet every day by oral route. [facility] carvedilol 6.25 mg tablet Take 1 tablet twice a day by oral route. carvedilol 6.25 mg tablet Take 1 tablet twice a day by oral route. No 1 BID carvedilol 6.25 mg tablet Take 1 tablet twice a day by oral route. [facility] ipratropium 0.5 mg-albutero l 2.5 mg/2.5 [...] 6 hours by inhalation route as needed. [facility] rivastigmin e 1.5 mg capsule Take 1 capsule twice a day by oral route. rivastigmin e 1.5 mg capsule Take 1 capsule twice a day by oral route. No 1capsul e(s) BID rivastigmi ne 1.5 mg capsule Take 1 capsule twice a day by oral route. [facility] acetaminoph en 300 mg-codeine 30 mg [...] day by oral route for 30 days. [facility] aspirin 81 mg tablet,dillan yed release Take 1 tablet every day by oral route. aspirin 81 mg tablet,dillan yed release Take 1 tablet every day by oral route. No 1 Q1D aspirin 81 mg tablet,del ayed release Take 1 tablet every day by oral route. [facility] atorvastati n 40 mg tablet Take 1 tablet every day by oral route. atorvastati n 40 mg tablet Take 1 tablet every day by oral route. No 1 Q1D atorvastat in 40 mg tablet Take 1 tablet every day by oral route. [facility] carvedilol 6.25 mg tablet Take 1 tablet twice a day by oral route. carvedilol 6.25 mg tablet Take 1 tablet twice a day by oral route. No 1 BID carvedilol 6.25 mg tablet Take 1 tablet twice a day by oral route. [facility] ipratropium 0.5 mg-albutero l 2.5 mg/2.5 [...] 6 hours by inhalation route as needed. [facility] rivastigmin e 1.5 mg capsule Take 1 capsule twice a day by oral route. rivastigmin e 1.5 mg capsule Take 1 capsule twice a day by oral route. No 1capsul e(s) BID rivastigmi ne 1.5 mg capsule Take 1 capsule twice a day by oral route. [facility] acetaminoph en 300 mg-codeine 30 mg [...] oral route as needed for 10 days. [facility] apixaban 5 mg tablet Take 1 tablet twice a day by oral route for 30 days. apixaban 5 mg tablet Take 1 tablet twice a day by oral route for 30 days. No 1 BID apixaban 5 mg tablet Take 1 tablet twice a day by oral route for 30 days. [facility] aspirin 81 mg tablet,dillan yed release Take 1 tablet every day by oral route. aspirin 81 mg tablet,dillan yed release Take 1 tablet every day by oral route. No 1 Q1D aspirin 81 mg tablet,del ayed release Take 1 tablet every day by oral route. [facility] atorvastati n 40 mg tablet Take 1 tablet every day by oral route. atorvastati n 40 mg tablet Take 1 tablet every day by oral route. No 1 Q1D atorvastat in 40 mg tablet Take 1 tablet every day by oral route. [facility] carvedilol 6.25 mg tablet Take 1 tablet twice a day by oral route. carvedilol 6.25 mg tablet Take 1 tablet twice a day by oral route. No 1 BID carvedilol 6.25 mg tablet Take 1 tablet twice a day by oral route. [facility] diclofenac 1 % topical gel APPLY 2 GRAMS TO THE AFFECTED AREA(S) BY TOPICAL ROUTE 2 TIMES PER DAY (KNEES) diclofenac 1 % topical gel APPLY 2 GRAMS TO THE AFFECTED AREA(S) BY TOPICAL ROUTE 2 TIMES PER DAY (KNEES) No diclofenac 1 % topical gel APPLY 2 GRAMS TO THE AFFECTED AREA(S) BY TOPICAL ROUTE 2 TIMES PER DAY (KNEES) [facility] ipratropium 0.5 mg-albutero l 2.5 mg/2.5 [...] twice a day by oral route. [facility] acetaminoph en 300 mg-codeine 30 mg [...] oral route as needed for 10 days. [facility] aspirin 81 mg tablet,dillan yed release Take 1 tablet every day by oral route. aspirin 81 mg tablet,dillan yed release Take 1 tablet every day by oral route. No 1 Q1D aspirin 81 mg tablet,del ayed release Take 1 tablet every day by oral route. [facility] atorvastati n 40 mg tablet Take 1 tablet every day by oral route. atorvastati n 40 mg tablet Take 1 tablet every day by oral route. No 1 Q1D atorvastat in 40 mg tablet Take 1 tablet every day by oral route. [facility] carvedilol 6.25 mg tablet Take 1 tablet twice a day by oral route. carvedilol 6.25 mg tablet Take 1 tablet twice a day by oral route. No carvedilol 6.25 mg tablet Take 1 tablet twice a day by oral route. [facility] cholecalcif marlee (vitamin D3) 1,250 mcg [...] week by oral route for 90 days. [facility] diclofenac 1 % topical gel APPLY [...] twice a day by oral route. [facility] acetaminoph en 300 mg-codeine 30 mg [...] oral route as needed for 10 days. [facility] aspirin 81 mg tablet,dillan yed release Take 1 tablet every day by oral route. aspirin 81 mg tablet,dillan yed release Take 1 tablet every day by oral route. No 1 Q1D aspirin 81 mg tablet,del ayed release Take 1 tablet every day by oral route. [facility] atorvastati n 40 mg tablet Take [...] 6 hours by inhalation route as needed. [facility] rivastigmin e 1.5 mg capsule Take 1 capsule twice a day by oral route. rivastigmin e 1.5 mg capsule Take 1 capsule twice a day by oral route. No rivastigmi ne 1.5 mg capsule Take 1 capsule twice a day by oral route. [facility] rivastigmin e 3 mg capsule rivastigmin e 3 mg capsule No rivastigmi ne 3 mg capsule [facility] acetaminoph en 300 mg-codeine 30 mg [...] oral route as needed for 10 days. [facility] atorvastati n 40 mg tablet Take 1 tablet every day by oral route. atorvastati n 40 mg tablet Take 1 tablet every day by oral route. No 1 Q1D atorvastat in 40 mg tablet Take 1 tablet every day by oral route. [facility] acetaminoph en 300 mg-codeine 30 mg [...] oral route as needed for 10 days. [facility] carvedilol 6.25 mg tablet Take 1 tablet twice a day by oral route. carvedilol 6.25 mg tablet Take 1 tablet twice a day by oral route. No 1 BID carvedilol 6.25 mg tablet Take 1 tablet twice a day by oral route. [facility] aspirin 81 mg tablet,dillan yed release [...] 1 tablet every day by oral route. [facility] carvedilol 6.25 mg tablet Take 1 tablet twice a day by oral route. carvedilol 6.25 mg tablet Take 1 tablet twice a day by oral route. No carvedilol 6.25 mg tablet Take 1 tablet twice a day by oral route. [facility] cholecalcif marlee (vitamin D3) 1,250 mcg [...] week by oral route for 90 days. [facility] Depakote 250 mg tablet,dillan yed release Take 1 tablet twice a day by oral route. Depakote 250 mg tablet,dillan yed release Take 1 tablet twice a day by oral route. No 1 BID Depakote 250 mg tablet,del ayed release Take 1 tablet twice a day by oral route. [facility] diclofenac 1 % topical gel APPLY 2 GRAMS TO THE AFFECTED AREA(S) BY TOPICAL ROUTE 2 TIMES PER DAY (KNEES) diclofenac 1 % topical gel APPLY 2 GRAMS TO THE AFFECTED AREA(S) BY TOPICAL ROUTE 2 TIMES PER DAY (KNEES) No diclofenac 1 % topical gel APPLY 2 GRAMS TO THE AFFECTED AREA(S) BY TOPICAL ROUTE 2 TIMES PER DAY (KNEES) [facility] Eliquis 5 mg tablet Take 1 tablet twice a day by oral route for 30 days. Eliquis 5 mg tablet Take 1 tablet twice a day by oral route for 30 days. No Eliquis 5 mg tablet Take 1 tablet twice a day by oral route for 30 days. [facility] ipratropium 0.5 mg-albutero l 2.5 mg/2.5 [...] tablet every 12 hours by oral route. [facility] ipratropium 0.5 mg-albutero l 2.5 mg/2.5 [...] 6 hours by inhalation route as needed. [facility] acetaminoph en 300 mg-codeine 30 mg [...] oral route as needed for 10 days. [facility] aspirin 81 mg tablet,dillan yed release Take 1 tablet every day by oral route. aspirin 81 mg tablet,dillan yed release Take 1 tablet every day by oral route. No 1 Q1D aspirin 81 mg tablet,del ayed release Take 1 tablet every day by oral route. [facility] atorvastati n 40 mg tablet Take 1 tablet every day by oral route. atorvastati n 40 mg tablet Take 1 tablet every day by oral route. No atorvastat in 40 mg tablet Take 1 tablet every day by oral route. [facility] carvedilol 6.25 mg tablet Take 1 [...] tablet twice a day by oral route. [facility] diclofenac 1 % topical gel APPLY 2 GRAMS TO THE AFFECTED AREA(S) BY TOPICAL ROUTE 2 TIMES PER DAY (KNEES) diclofenac 1 % topical gel APPLY 2 GRAMS TO THE AFFECTED AREA(S) BY TOPICAL ROUTE 2 TIMES PER DAY (KNEES) No diclofenac 1 % topical gel APPLY 2 GRAMS TO THE AFFECTED AREA(S) BY TOPICAL ROUTE 2 TIMES PER DAY (KNEES) [facility] Eliquis 5 mg tablet Take 1 tablet twice a day by oral route for 30 days. Eliquis 5 mg tablet Take 1 tablet twice a day by oral route for 30 days. No Eliquis 5 mg tablet Take 1 tablet twice a day by oral route for 30 days. [facility] ipratropium 0.5 mg-albutero l 2.5 mg/2.5 [...] 6 hours by inhalation route as needed. [facility] acetaminoph en 300 mg-codeine 30 mg [...] tablet every day by oral route. [facility] carvedilol 6.25 mg tablet Take 1 tablet twice a day by oral route. carvedilol 6.25 mg tablet Take 1 tablet twice a day by oral route. No 1 BID carvedilol 6.25 mg tablet Take 1 tablet twice a day by oral route. [facility] amlodipine 10 mg tablet Take 1 [...] tablet every day by oral route. [facility] cephalexin 500 mg tablet Take 1 tablet every 12 hours by oral route. cephalexin 500 mg tablet Take 1 tablet every 12 hours by oral route. No 1 Q12H cephalexin 500 mg tablet Take 1 tablet every 12 hours by oral route. [facility] carvedilol 6.25 mg tablet Take 1 tablet twice a day by oral route. carvedilol 6.25 mg tablet Take 1 tablet twice a day by oral route. No carvedilol 6.25 mg tablet Take 1 tablet twice a day by oral route. [facility] clonidine HCl 0.1 mg tablet Take 1 tablet every day by oral route as needed. clonidine HCl 0.1 mg tablet Take 1 tablet every day by oral route as needed. No 1 Q1D clonidine HCl 0.1 mg tablet Take 1 tablet every day by oral route as needed. [facility] diclofenac 1 % topical gel APPLY [...] No divalproex 250 mg tablet,del ayed release [facility] Eliquis 5 mg tablet Take 1 tablet twice a day by oral route for 30 days. Eliquis 5 mg tablet Take 1 tablet twice a day by oral route for 30 days. No Eliquis 5 mg tablet Take 1 tablet twice a day by oral route for 30 days. [facility] ergocalcife rol (vitamin D2) 1,250 mcg (50,000 unit) capsule Take 1 unit every month by oral route for 28 days. ergocalcife rol (vitamin D2) 1,250 mcg (50,000 unit) capsule Take 1 unit every month by oral route for 28 days. No ergocalcif marlee (vitamin D2) 1,250 mcg (50,000 unit) capsule Take 1 unit every month by oral route for 28 days. [facility] Immunizations Ordered Immunization Name Filled Immunization Name Date Status Comments Source pneumococcal polysaccharide PPV23 pneumococcal polysaccharide PPV23 2022-09-24 00:00:00 Completed [facility] influenza, unspecified formulation influenza, unspecified formulation 2022-09-24 00:00:00 Completed [facility] pneumococcal polysaccharide PPV23 pneumococcal polysaccharide PPV23 2022-09-24 00:00:00 Completed [facility] influenza, unspecified formulation influenza, unspecified formulation 2022-09-24 00:00:00 Completed [facility] pneumococcal polysaccharide PPV23 pneumococcal polysaccharide PPV23 [...] SARS-COV-2 COVID-19 PFIZER VACCINE 2020-12-29 00:00:00 Completed [facility] SARS-COV-2 COVID-19 PFIZER VACCINE 2020-12-29 00:00:00 Completed [facility] SARS-COV-2 COVID-19 PFIZER VACCINE 2020-12-29 00:00:00 Completed [facility] SARS-COV-2 COVID-19 PFIZER VACCINE 2020-12-29 00:00:00 Completed [facility] SARS-COV-2 COVID-19 PFIZER VACCINE 2020-12-29 00:00:00 Completed [facility] SARS-COV-2 COVID-19 PFIZER VACCINE 2020-12-29 00:00:00 Completed [facility] SARS-COV-2 COVID-19 PFIZER VACCINE 2020-12-29 00:00:00 Completed [facility] SARS-COV-2 COVID-19 PFIZER VACCINE 2020-12-29 00:00:00 Completed [facility] SARS-COV-2 COVID-19 PFIZER VACCINE 2020-12-29 00:00:00 Completed [facility] SARS-COV-2 COVID-19 PFIZER VACCINE 2020-12-29 00:00:00 Completed [facility] SARS-COV-2 COVID-19 PFIZER VACCINE 2020-12-29 00:00:00 Completed [facility] SARS-COV-2 COVID-19 PFIZER VACCINE 2020-12-29 00:00:00 Completed [facility] SARS-COV-2 COVID-19 PFIZER VACCINE 2020-12-29 00:00:00 Completed [facility] SARS-COV-2 COVID-19 PFIZER VACCINE 2020-12-29 00:00:00 Completed [facility] SARS-COV-2 COVID-19 PFIZER VACCINE 2020-12-29 00:00:00 Completed [facility] SARS-COV-2 COVID-19 PFIZER VACCINE 2020-12-29 00:00:00 Completed [facility] SARS-COV-2 COVID-19 PFIZER VACCINE 2020-12-29 00:00:00 Completed [facility] SARS-COV-2 COVID-19 PFIZER VACCINE 2020-12-29 00:00:00 Completed [facility] SARS-COV-2 COVID-19 PFIZER VACCINE 2020-12-29 00:00:00 Completed [facility] SARS-COV-2 COVID-19 PFIZER VACCINE 2020-12-29 00:00:00 Completed [facility] SARS-COV-2 COVID-19 PFIZER VACCINE 2020-12-29 00:00:00 Completed [facility] SARS-COV-2 COVID-19 PFIZER VACCINE 2020-12-29 00:00:00 Completed [facility] SARS-COV-2 COVID-19 PFIZER VACCINE 2020-12-29 00:00:00 Completed [facility] SARS-COV-2 COVID-19 PFIZER VACCINE 2020-12-29 00:00:00 Completed [facility] SARS-COV-2 COVID-19 PFIZER VACCINE 2020-12-29 00:00:00 Completed [facility] SARS-COV-2 COVID-19 PFIZER VACCINE 2020-12-29 00:00:00 Completed [facility] SARS-COV-2 COVID-19 PFIZER VACCINE 2020-12-29 00:00:00 Completed [facility] SARS-COV-2 COVID-19 PFIZER VACCINE 2020-12-29 00:00:00 Completed [facility] SARS-COV-2 COVID-19 PFIZER VACCINE 2020-12-29 00:00:00 Completed [facility] SARS-COV-2 COVID-19 PFIZER VACCINE 2020-12-29 00:00:00 Completed [facility] SARS-COV-2 COVID-19 PFIZER VACCINE 2020-12-29 00:00:00 Completed [facility] SARS-COV-2 COVID-19 PFIZER VACCINE 2020-12-29 00:00:00 Completed [facility] SARS-COV-2 COVID-19 PFIZER VACCINE 2020-12-29 00:00:00 Completed [facility] SARS-COV-2 COVID-19 PFIZER VACCINE 2020-12-29 00:00:00 Completed [facility] SARS-COV-2 COVID-19 PFIZER VACCINE 2020-12-29 00:00:00 Completed [facility] SARS-COV-2 COVID-19 PFIZER VACCINE 2020-12-29 00:00:00 Completed [facility] SARS-COV-2 COVID-19 PFIZER VACCINE 2020-12-29 00:00:00 Completed [facility] SARS-COV-2 COVID-19 PFIZER VACCINE 2020-12-29 00:00:00 Completed [facility] SARS-COV-2 COVID-19 PFIZER VACCINE 2020-12-29 00:00:00 Completed [facility] SARS-COV-2 COVID-19 PFIZER VACCINE 2020-12-29 00:00:00 Completed [facility] SARS-COV-2 COVID-19 PFIZER VACCINE 2020-12-29 00:00:00 Completed [facility] SARS-COV-2 COVID-19 PFIZER VACCINE 2020-12-29 00:00:00 Completed [facility] SARS-COV-2 COVID-19 PFIZER VACCINE 2020-12-29 00:00:00 Completed [facility] SARS-COV-2 COVID-19 PFIZER VACCINE 2020-12-29 00:00:00 Completed [facility] SARS-COV-2 COVID-19 PFIZER VACCINE 2020-12-29 00:00:00 Completed [facility] SARS-COV-2 COVID-19 PFIZER VACCINE 2020-12-07 00:00:00 Completed [facility] SARS-COV-2 COVID-19 PFIZER VACCINE 2020-12-07 00:00:00 Completed [facility] SARS-COV-2 COVID-19 PFIZER VACCINE 2020-12-07 00:00:00 Completed [facility] SARS-COV-2 COVID-19 PFIZER VACCINE 2020-12-07 00:00:00 Completed [facility] SARS-COV-2 COVID-19 PFIZER VACCINE 2020-12-07 00:00:00 Completed [facility] SARS-COV-2 COVID-19 PFIZER VACCINE 2020-12-07 00:00:00 Completed [facility] SARS-COV-2 COVID-19 PFIZER VACCINE 2020-12-07 00:00:00 Completed [facility] SARS-COV-2 COVID-19 PFIZER VACCINE 2020-12-07 00:00:00 Completed [facility] SARS-COV-2 COVID-19 PFIZER VACCINE 2020-12-07 00:00:00 Completed [facility] SARS-COV-2 COVID-19 PFIZER VACCINE 2020-12-07 00:00:00 Completed [facility] SARS-COV-2 COVID-19 PFIZER VACCINE 2020-12-07 00:00:00 Completed [facility] SARS-COV-2 COVID-19 PFIZER VACCINE 2020-12-07 00:00:00 Completed [facility] SARS-COV-2 COVID-19 PFIZER VACCINE 2020-12-07 00:00:00 Completed [facility] SARS-COV-2 COVID-19 PFIZER VACCINE 2020-12-07 00:00:00 Completed [facility] SARS-COV-2 COVID-19 PFIZER VACCINE 2020-12-07 00:00:00 Completed [facility] SARS-COV-2 COVID-19 PFIZER VACCINE 2020-12-07 00:00:00 Completed [facility] SARS-COV-2 COVID-19 PFIZER VACCINE 2020-12-07 00:00:00 Completed [facility] SARS-COV-2 COVID-19 PFIZER VACCINE 2020-12-07 00:00:00 Completed [facility] SARS-COV-2 COVID-19 PFIZER VACCINE 2020-12-07 00:00:00 Completed [facility] SARS-COV-2 COVID-19 PFIZER VACCINE 2020-12-07 00:00:00 Completed [facility] SARS-COV-2 COVID-19 PFIZER VACCINE 2020-12-07 00:00:00 Completed [facility] SARS-COV-2 COVID-19 PFIZER VACCINE 2020-12-07 00:00:00 Completed [facility] SARS-COV-2 COVID-19 PFIZER VACCINE 2020-12-07 00:00:00 Completed [facility] SARS-COV-2 COVID-19 PFIZER VACCINE 2020-12-07 00:00:00 Completed [facility] SARS-COV-2 COVID-19 PFIZER VACCINE 2020-12-07 00:00:00 Completed [facility] SARS-COV-2 COVID-19 PFIZER VACCINE 2020-12-07 00:00:00 Completed [facility] SARS-COV-2 COVID-19 PFIZER VACCINE 2020-12-07 00:00:00 Completed [facility] SARS-COV-2 COVID-19 PFIZER VACCINE 2020-12-07 00:00:00 Completed [facility] SARS-COV-2 COVID-19 PFIZER VACCINE 2020-12-07 00:00:00 Completed [facility] SARS-COV-2 COVID-19 PFIZER VACCINE 2020-12-07 00:00:00 Completed [facility] SARS-COV-2 COVID-19 PFIZER VACCINE 2020-12-07 00:00:00 Completed [facility] SARS-COV-2 COVID-19 PFIZER VACCINE 2020-12-07 00:00:00 Completed [facility] SARS-COV-2 COVID-19 PFIZER VACCINE 2020-12-07 00:00:00 Completed [facility] SARS-COV-2 COVID-19 PFIZER VACCINE 2020-12-07 00:00:00 Completed [facility] SARS-COV-2 COVID-19 PFIZER VACCINE 2020-12-07 00:00:00 Completed [facility] SARS-COV-2 COVID-19 PFIZER VACCINE 2020-12-07 00:00:00 Completed [facility] SARS-COV-2 COVID-19 PFIZER VACCINE 2020-12-07 00:00:00 Completed [facility] SARS-COV-2 COVID-19 PFIZER VACCINE 2020-12-07 00:00:00 Completed [facility] SARS-COV-2 COVID-19 PFIZER VACCINE 2020-12-07 00:00:00 Completed [facility] SARS-COV-2 COVID-19 PFIZER VACCINE 2020-12-07 00:00:00 Completed [facility] SARS-COV-2 COVID-19 PFIZER VACCINE 2020-12-07 00:00:00 Completed [facility] SARS-COV-2 COVID-19 PFIZER VACCINE 2020-12-07 00:00:00 Completed [facility] SARS-COV-2 COVID-19 PFIZER VACCINE 2020-12-07 00:00:00 Completed [facility] SARS-COV-2 COVID-19 PFIZER VACCINE 2020-12-07 00:00:00 Completed [facility] SARS-COV-2 COVID-19 PFIZER VACCINE 2020-12-07 00:00:00 Completed [facility] influenza nasal, unspecified formulation influenza nasal, unspecified formulation Unknown Completed [facility] Tdap Tdap Unknown Completed [facility] ical pneumococcal polysaccharide PPV23 pneumococcal polysaccharide PPV23 Unknown Completed [facility] influenza, unspecified formulation influenza, unspecified formulation Unknown Completed [facility] COVID-19, mRNA, LNP-S, PF, 30 mcg/0.3 mL dose (Pf[employer]) COVID-19, mRNA, LNP-S, PF, 30 mcg/0.3 mL dose (Pf[employer]) Unknown Completed [facility] COVID-19, mRNA, LNP-S, PF, 30 mcg/0.3 mL dose (Pf[employer]) COVID-19, mRNA, LNP-S, PF, 30 mcg/0.3 mL dose (Pf[employer]) Unknown Completed [facility] influenza nasal, unspecified formulation influenza nasal, unspecified formulation Unknown Completed [facility] Tdap Tdap Unknown Completed [facility] ical pneumococcal polysaccharide PPV23 pneumococcal polysaccharide PPV23 Unknown Completed [facility] influenza, unspecified formulation influenza, unspecified formulation Unknown Completed [facility] COVID-19, mRNA, LNP-S, PF, 30 mcg/0.3 mL dose ([employer]) COVID-19, mRNA, LNP-S, PF, 30 mcg/0.3 mL dose (Pfizer-BioNTech) Unknown Completed [facility] COVID-19, mRNA, LNP-S, PF, 30 mcg/0.3 mL dose (Pfizer-BioNTech) COVID-19, mRNA, LNP-S, PF, 30 mcg/0.3 mL dose (Pfizer-BioNTech) Unknown Completed [facility] influenza nasal, unspecified formulation influenza nasal, unspecified formulation Unknown Completed [facility] Tdap Tdap Unknown Completed [facility] pneumococcal polysaccharide PPV23 pneumococcal polysaccharide PPV23 Unknown Completed [facility] influenza, unspecified formulation influenza, unspecified formulation Unknown Completed [facility] COVID-19, mRNA, LNP-S, PF, 30 mcg/0.3 mL dose (Pfizer-BioNTech) COVID-19, mRNA, LNP-S, PF, 30 mcg/0.3 mL dose (Pfizer-BioNTech) Unknown Completed [facility] COVID-19, mRNA, LNP-S, PF, 30 mcg/0.3 mL dose (Pfizer-BioNTech) COVID-19, mRNA, LNP-S, PF, 30 mcg/0.3 mL dose (Pfizer-BioNTech) Unknown Completed [facility] influenza nasal, unspecified formulation influenza nasal, unspecified formulation Unknown Completed [facility] Tdap Tdap Unknown Completed [facility] pneumococcal polysaccharide PPV23 pneumococcal polysaccharide PPV23 Unknown Completed [facility] influenza, unspecified formulation influenza, unspecified formulation Unknown Completed [facility] COVID-19, mRNA, LNP-S, PF, 30 mcg/0.3 mL dose [facility] COVID-[facility], mRNA, LNP-S, PF, 30 mcg/0.3 mL dose [facility] Unknown Completed [facility] COVID-19, mRNA, LNP-S, PF, 30 mcg/0.3 mL dose [facility] COVID-19, mRNA, LNP-S, PF, 30 mcg/0.3 mL dose [facility] Unknown Completed [facility] SARS-COV-2 COVID-19 PFIZER VACCINE Unknown Completed [facility] SARS-COV-2 COVID-19 PFIZER VACCINE Unknown Completed [facility] SARS-COV-2 COVID-19 PFIZER VACCINE Unknown Completed [facility] SARS-COV-2 COVID-19 PFIZER VACCINE Unknown Completed [facility] SARS-COV-2 COVID-19 PFIZER VACCINE Unknown Completed [facility] SARS-COV-2 COVID-19 PFIZER VACCINE Unknown Completed [facility] SARS-COV-2 COVID-19 PFIZER VACCINE Unknown Completed [facility] SARS-COV-2 COVID-19 PFIZER VACCINE Unknown Completed [facility] Vital Signs Vital Name Observation Time Observation Value Comments S ource BP Diastolic 2023-12-14 00:00:00 84 mm[Hg] [facility] Height 2023-12-14 00:00:00 69 [in_i] [facility] BP Systolic 2023-12-14 00:00:00 136 mm[Hg] [facility] BMI (Body Mass Index) 2023-12-14 00:00:00 22.6 kg/m2 [facility] Body Weight 2023-12-14 00:00:00 2450 [oz_av] [facility] BP Systolic 2023-12-08 00:00:00 130 mm[Hg] [facility] [...] Systolic blood pressure 2023-08-19 17:11:00 102 mm[Hg] [facility] Diastolic blood pressure 2023-08-19 17:11:00 73 mm[Hg] [facility] Heart rate 2023-08-19 17:11:00 80 /min [facility] 2023-08-19 17:11:00 16 /min [facility] Body weight 2023-08-19 17:11:00 79.379 kg [facility] BMI 2023-08-19 17:11:00 25.84 kg/m2 [facility] Oxygen saturation in Arterial blood by Pulse oximetry 2023-08-19 17:11:00 94 /min [facility] Systolic blood pressure 2023-06-22 14:55:00 154 mm[Hg] [facility] Diastolic blood pressure 2023-06-22 14:55:00 78 mm[Hg] [facility] Heart rate 2023-06-22 14:55:00 82 /min [facility] Body temperature 2023-06-22 14:50:00 36.28 Genevieve [facility] Respiratory rate 2023-06-22 14:50:00 18 /min [facility] Body weight 2023-06-22 14:50:00 79.425 kg [facility] BMI 2023-06-22 14:50:00 25.86 kg/m2 [facility] Oxygen saturation in Arterial blood by Pulse oximetry 2023-06-22 14:50:00 95 /min [facility] Systolic blood pressure 2023-05-08 21:34:00 130 mm[Hg] [facility] Diastolic blood pressure 2023-05-08 21:34:00 90 mm[Hg] [facility] Heart rate 2023-05-08 21:34:00 62 /min [facility] Body temperature 2023-05-08 21:34:00 36.11 Genevieve [facility] Respiratory rate 2023-05-08 21:34:00 28 /min [facility] Body height 2023-05-08 21:34:00 175.3 cm [facility] Body weight 2023-05-08 21:34:00 81.647 kg [facility] BMI 2023-05-08 21:34:00 26.58 kg/m2 [facility] Oxygen saturation in Arterial blood by Pulse oximetry 2023-05-08 21:34:00 98 /min [facility] BP Diastolic 2023-02-05 00:00:00 61 mm[Hg] [facility] [...] Systolic blood pressure 2023-01-18 16:37:00 158 mm[Hg] [facility] Diastolic blood pressure 2023-01-18 16:37:00 92 mm[Hg] [facility] Heart rate 2023-01-18 16:37:00 90 /min [facility] Systolic blood pressure 2023-01-18 15:47:00 155 mm[Hg] [facility] Diastolic blood pressure 2023-01-18 15:47:00 109 mm[Hg] [facility] Heart rate 2023-01-18 15:45:00 103 /min [facility] Body height 2023-01-18 15:45:00 175.3 cm [facility] Body weight 2023-01-18 15:45:00 78.835 kg [facility] BMI 2023-01-18 15:45:00 25.67 kg/m2 [facility] BP Diastolic 2022-12-29 00:00:00 75 mm[Hg] [facility] Height 2022-12-29 00:00:00 69 [in_i] [...] Systolic blood pressure 2022-09-25 21:32:00 150 mm[Hg] [facility] Diastolic blood pressure 2022-09-25 21:32:00 92 mm[Hg] [facility] Body height 2022-09-25 15:49:00 175.3 cm [facility] Body Weight 2022-09-22 00:00:00 2688 [oz_av] [...] Systolic blood pressure 2022-09-10 18:52:00 132 mm[Hg] [facility] Diastolic blood pressure 2022-09-10 18:52:00 77 mm[Hg] [facility] Heart rate 2022-09-10 18:46:00 75 /min [facility] Respiratory rate 2022-09-10 18:46:00 20 /min [facility] Body height 2022-09-10 18:46:00 175.3 cm [facility] Body weight 2022-09-10 18:46:00 78.835 kg [facility] BMI 2022-09-10 18:46:00 25.67 kg/m2 [facility] Oxygen saturation in Arterial blood by Pulse oximetry 2022-09-10 18:46:00 97 /min [facility] BP Diastolic 2022-09-08 00:00:00 79 mm[Hg] [facility] Height 2022-09-08 00:00:00 69 [in_i] [facility] BMI (Body Mass Index) 2022-09-08 00:00:00 24.7 kg/m2 [facility] BP Systolic 2022-09-08 00:00:00 136 mm[Hg] [facility] Body Weight 2022-09-08 00:00:00 2672 [oz_av] [facility] Systolic blood pressure 2022-08-21 14:30:00 162 mm[Hg] [facility] Diastolic blood pressure 2022-08-21 14:30:00 106 mm[Hg] [facility] Heart rate 2022-08-21 14:30:00 65 /min [facility] Body weight 2022-08-21 14:17:00 74.844 kg [facility] BMI 2022-08-21 14:17:00 21.77 kg/m2 [facility] Systolic blood pressure 2022-05-02 20:58:00 170 mm[Hg] [facility] Diastolic blood pressure 2022-05-02 20:58:00 89 mm[Hg] [facility] Heart rate 2022-05-02 20:58:00 80 /min [facility] Respiratory rate 2022-05-02 20:58:00 16 /min [facility] Oxygen saturation in Arterial blood by Pulse oximetry 2022-05-02 20:58:00 98 /min [facility] Body temperature 2022-05-02 16:41:00 36.67 Genevieve [facility] Body weight 2022-05-02 16:41:00 63.957 kg [facility] BMI 2022-05-02 16:41:00 18.61 kg/m2 [facility] Systolic blood pressure 2022-05-01 13:04:00 163 mm[Hg] [facility] Diastolic blood pressure 2022-05-01 13:04:00 91 mm[Hg] [facility] Heart rate 2022-05-01 13:04:00 68 /min [facility] Body temperature 2022-05-01 13:04:00 36.72 Genevieve [facility] Respiratory rate 2022-05-01 13:04:00 18 /min [facility] Oxygen saturation in Arterial blood by Pulse oximetry 2022-05-01 13:04:00 98 /min [facility] Body height 2022-04-30 12:32:00 185.4 cm [facility] Body weight 2022-04-30 12:32:00 64 kg [facility] BMI 2022-04-30 12:32:00 18.62 kg/m2 [facility] Systolic blood pressure 2022-04-29 02:45:00 154 mm[Hg] [facility] Diastolic blood pressure 2022-04-29 02:45:00 125 mm[Hg] [facility] Heart rate 2022-04-29 02:45:00 69 /min [facility] Respiratory rate 2022-04-29 02:45:00 20 /min [facility] Oxygen saturation in Arterial blood by Pulse oximetry 2022-04-29 02:45:00 99 /min [facility] Body temperature 2022-04-28 23:07:00 36.61 Genevieve [facility] Body weight 2022-04-28 23:07:00 63.504 kg [facility] BMI 2022-04-28 23:07:00 18.47 kg/m2 [facility] Procedures Procedure Date / Time Performed Performing Clinician Source EXTERNAL PROVIDER - ADC CARDIOLOGY 2023-06-22 05:01:00 Doctor Unassigned, [place] [facility] EKG-12 LEAD 2023-05-08 21:46:25 [facility] 2022-09-10 06:01:00 Doctor Unassigned, [place] [facility] CT HEAD WO CONTRAST 2022-09-04 18:24:15 Jaqui Ervin [facility] ASSIGNMENT OF BENEFITS 2022-09-04 18:09:30 Docto r Unassigned, [place] [facility] ASSIGNMENT OF BENEFITS 2022-08-21 13:37:31 Docto r Unassigned, [place] [facility] REFERRAL- REQUEST/RESPONSE 2022-07-21 05:01:00 Doctor Unassigned, [place] [facility] REFERRAL- REQUEST/RESPONSE 2022-06-27 05:01:00 Doctor Unassigned, [place] [facility] EKG-12 LEAD 2022-05-02 20:34:45 Alicia Talley [facility] URINALYSIS 2022-05-02 17:42:00 Alicia Talley [facility] LACTIC ACID WHOLE BLOOD 2022-05-02 17:34:00 Kathy Talley [facility] TROPONIN I 2022-05-02 17:33:00 Alicia Talley [facility] COMP. METABOLIC PANEL (88290) 2022-05-02 17:33:00 Alicia Talley [facility] ETHANOL 2022-05-02 17:33:00 Alicia Talley [facility] CBC WITH DIFF 2022-05-02 17:33:[address] [facility] CONSENT/REFUSAL FOR DIAGNOSIS AND TREATMENT 2022-05-02 16:41:24 Doctor Unassigned, [place] [facility] PHOSPHORUS 2022-05-01 05:14:00 [place] [facility] MAGNESIUM 2022-05-01 05:14:00 [place] [facility] BASIC METABOLIC PANEL (NA, K, CL, CO2, GLUCOSE, BUN, CREATININE, CA) 2022-05-01 05:14:00 [place] [facility] TRANSTHORACIC ECHO (TTE) COMPLETE 2022-04-30 19:17:00 Jose Roberto Plaza [facility] MAGNESIUM 2022-04-30 15:45:[address] [facility] BASIC METABOLIC PANEL (NA, K, CL, CO2, GLUCOSE, BUN, CREATININE, CA) 2022-04-30 15:45:00 Jose Roberto [address] [facility] CT CERVICAL SPINE WO CONTRAST 2022-04-30 15:08:06 [place] [facility] CT HEAD WO CONTRAST 2022-04-30 15:08:06 [place], Pet er [facility] OSMOLALITY URINE 2022-04-30 11:27:00 Jose Roberto Plaza [facility] URINE DRUG (IMMUNOASSAY) - COMPREHENSIVE DRUG SCREEN 2022-04-30 11:27:00 [place] [facility] URINALYSIS 2022-04-30 11:27:00 Jose Roberto Plaza [facility] CREATININE, URINE RANDOM 2022-04-30 11:27:00 Jose Roberto Plaza [facility] SODIUM, URINE RANDOM 2022-04-30 11:27:[address] [facility] ACTIVATED PARTIAL THRMPLAS DANNY 2022-04-30 11:26:00 Jose Roberto Plaza [facility] PROTHROMBIN TIME / INR 2022-04-30 05:27:[address] Sh[address] [facility] ACTIVATED PARTIAL THRMPLAS DANNY 2022-04-30 05:27:00 Jose Roberto Plaza [facility] CREATINE KINASE 2022-04-29 23:20:00 Jose Roberto Plaza [facility] MAGNESIUM 2022-04-29 23:20:00 Jose Roberto Plaza [facility] OSMOLALITY, SERUM OR PLASMA 2022-04-29 23:20:00 Jose Roberto Plaza [facility] TROPONIN I 2022-04-29 23:20:00 Bubba Echevarria [facility] THYROID STIMULATING HORMONE 2022-04-29 23:20:00 Jose [address] [facility] COMP. METABOLIC PANEL (88851) 2022-04-29 23:20:00 Bubba Echevarria [facility] LIPID PANEL (70240)(TOTAL CHOLESTEROL, TRIGLYCERIDES, HDL) 2022-04-29 23:20:00 B[facility] CBC WITH DIFF 2022-04-29 23:20:00 [facility]varria [facility] GLYCOSYLATED HEMOGLOBIN (A1C) 2022-04-29 23:20:00 [facility] N-TERMINAL PRO-BNP 2022-04-29 23:20:00 Bubba Echevarria [facility] FREE T3 2022-04-29 23:20:[address] [facility] COVID-19 (ID NOW RAPID TESTING) 2022-04-29 23:20:00 [facility] LAB ONLY COVID INTERPRETATION 2022-04-29 23:20:00 [facility] XR CHEST 1 VW 2022-04-29 22:57:00 Bubba Echevarria [facility] HB ECG ROUTINE & RHYTHM STRIP 2022-04-29 21:53:14 [facility] XR CHEST 2 VW 2022-04-29 00:46:00 Bernardo Rodríguez [facility] EKG-12 LEAD 2022-04-29 00:23:05 Bernardo Rodríguez [facility] LIPASE 2022-04-29 00:08:00 Bernardo Rodríguez [facility] TROPONIN I 2022-04-29 00:08:00 Bernardo Rodríguez [facility] HEPATIC FUNCTION PANEL (83239) (ALB,T.PRO,BILI T,BU/BC,ALT,AST,ALK PHOS) 2022-04-29 00:08:00 Bernardo Rodríguez [facility] BASIC METABOLIC PANEL (NA, K, CL, CO2, GLUCOSE, BUN, CREATININE, CA) 2022-04-29 00:08:00 Bernardo Rodríguez [facility] CBC WITH DIFF 2022-04-29 00:08:00 Bernardo Rodríguez [facility] N-TERMINAL PRO-BNP 2022-04-29 00:08:00 Bernardo Rodríguez [facility] COVID-19 (ID NOW RAPID TESTING) 2022-04-29 00:08:00 Bernardo Rodríguez [facility] Plan of Care Planned Activity Planned Date Details Comments Source Instructions [facility] En[facility] Start Date/Time End Date/Time Encounter Type Admission Type Attending [facility] Care Department Encounter ID Source 2024-01-07 00:00:00 2024-01-07 00:00:00 Outpatient GC_[facility]HC_Tod d_J PRIV PRIV [id number] [facility] 2024-01-05 00:00:00 2024-01-05 00:00:00 Outpatient GC_BAHC_Tod d_J PRIV PRIV [id number] [facility] 2024-01-04 00:00:00 2024-01-04 00:00:00 Outpatient GC_BAHC_Tod d_J PRIV PRIV [id number] [facility] 2023-12-30 00:00:00 2023-12-30 00:00:00 Outpatient GC_BAHC_Tod d_J PRIV PRIV [id number] [facility] 2023-12-21 00:00:00 2023-12-21 00:00:00 LANDON Sullivan: [address] [place] [phone] , Ph. [facility] [id number] [facility] 2023-12-20 00:00:00 2023-12-20 00:00:00 Outpatient GC_BAHC_Tod d_J PRIV PRIV [id number] [facility] 2023-12-17 00:00:00 2023-12-17 00:00:00 Outpatient GC_BAHC_Tod d_J PRIV PRIV [id number] [facility] 2023-12-14 00:00:00 2023-12-14 00:00:00 LANDON Sullivan: [address] [place] [phone] , Ph. [facility] [id number] [facility] 2023-12-09 00:00:00 2023-12-09 00:00:00 Outpatient GC_BAHC_Tod d_J [facility] PRIV [id number] [facility] 2023-12-08 00:00:00 2023-12-08 00:00:00 Randi Parsons PA: [address] [place] [phone] , Ph. [facility] [id number] [facility] 2023-12-06 00:00:00 2023-12-06 00:00:00 Outpatient GC_BAHC_Tod d_J [facility] PRIV [id number] [facility] 2023-12-03 00:00:00 2023-12-03 00:00:00 LANDON Sullivan: [address] [place] [phone] , Ph. [facility] - GC_[facility]HC[facility] [id number] [facility] 2023-11-29 00:00:00 2023-11-29 00:00:00 Outpatient GC_BAHC_Tod d_J [facility] PRIV [id number] [facility] 2023-11-23 00:00:00 2023-11-23 00:00:00 Outpatient GC_BAHC_Tod d_J [facility] PRIV [id number] [facility] 2023-11-23 00:00:00 2023-11-23 00:00:00 LANDON Sullivan: [address] [place] [phone] , Ph. [facility] - GC_[facility] [id number] [facility] 2023-11-19 00:00:00 2023-11-19 00:00:00 Outpatient GC_BAHC_Tod d_J PRIV PRIV [id number] [facility] 2023-11-19 00:00:00 2023-11-19 00:00:00 Randi Parsons PA: [address] [place] [phone] , Ph. [facility] - GC_[facility] [id number] [facility] 2023-11-18 00:00:00 2023-11-18 00:00:00 Outpatient GC_BAHC_Tod d_J PRIV PRIV [id number] [facility] 2023-11-17 00:00:00 2023-11-17 00:00:00 Outpatient GC_BAHC_Tod d_J PRIV PRIV [id number] [facility] 2023-11-16 00:00:00 2023-11-16 00:00:00 LANDON Sullivan: [address] [place] [phone] , Ph. [facility] - GC_[facility]HC[facility] [id number] [facility] 2023-11-15 00:00:00 2023-11-15 00:00:00 Outpatient GC_BAHC_Tod d_J [facility] PRIV [id number] [facility] 2023-11-13 00:00:00 2023-11-13 00:00:00 Outpatient GC_BAHC_Tod d_J [facility] PRIV [id number] [facility] 2023-11-12 00:00:00 2023-11-12 00:00:00 LANDON Sullivan: [address] [place] [phone] , Ph. [facility] - GC_[facility]HC[facility] [id number] [facility] 2023-11-09 00:00:00 2023-11-09 00:00:00 LANDON Sullivan: [address] [place] [phone] , Ph. [facility] - GC_BAHC_[facility] [id number] [facility] 2023-10-29 00:00:00 2023-10-29 00:00:00 Outpatient GC_BAHC_Tod d_J PRIV PRIV [id number] [facility] 2023-10-21 00:00:00 2023-10-21 00:00:00 Outpatient GC_BAHC_Tod d_J PRIV PRIV [id number] [facility] 2023-10-15 00:00:00 2023-10-15 00:00:00 Outpatient GC_BAHC_Tod d_J PRIV PRIV [id number] [facility] 2023-10-07 00:00:00 2023-10-07 00:00:00 Outpatient GC_BAHC_Tod d_J PRIV PRIV [id number] [facility] 2023-09-29 00:00:00 2023-09-29 00:00:00 Outpatient GC_BAHC_Tod d_J PRIV PRIV [id number] [facility] 2023-09-29 00:00:00 2023-09-29 00:00:00 Outpatient GC_BAHC_Tod d_J PRIV PRIV [id number] [facility] 2023-09-24 00:00:00 2023-09-24 00:00:00 Outpatient GC_BAHC_Tod d_J PRIV PRIV [id number] [facility] 2023-09-10 00:00:00 2023-09-10 00:00:00 Outpatient GC_BAHC_Tod d_J PRIV PRIV [id number] [facility] 2023-09-10 00:00:00 2023-09-10 00:00:00 Outpatient GC_BAHC_Tod d_J PRIV PRIV [id number] [facility] 2023-09-07 00:00:00 2023-09-07 00:00:00 Outpatient GC_BAHC_Tod d_J PRIV PRIV [id number] [facility] 2023-09-02 08:30:00 2023-09-02 08:30:00 Outpatient KYLEE MCGINNIS [facility]OCKAL[facility]A M [facility] [id number] [facility] 2023-09-01 00:00:00 2023-09-01 00:00:00 Outpatient GC_BAHC_Tod d_J PRIV PRIV [id number] [facility] 2023-08-30 00:00:00 2023-08-30 00:00:00 Outpatient GC_BAHC_Tod d_J PRIV PRIV [id number] [facility] 2023-08-27 00:00:00 2023-08-27 00:00:00 Outpatient GC_BAHC_Tod d_J PRIV PRIV [id number] [facility] 2023-08-26 00:00:00 2023-08-26 00:00:00 Outpatient GC_BAHC_Tod d_J PRIV PRIV [id number] [facility] 2023-08-19 11:40:00 2023-08-19 12:26:17 Outpatient R KYLEE RADFORD [facility] M [facility] [id number] [facility] 2023-08-19 11:40:00 2023-08-19 12:26:17 Office Visit Kylee Radford [facility] [id number] [facility] 2023-08-18 00:00:00 2023-08-18 00:00:00 Outpatient GC_BAHC_Tod d_J PRIV PRIV [id number] [facility] 2023-08-17 00:00:00 2023-08-17 00:00:00 Outpatient GC_BAHC_Tod d_J PRIV PRIV [id number] [facility] 2023-08-17 00:00:00 2023-08-17 00:00:00 Outpatient GC_BAHC_Tod d_J PRIV PRIV [id number] [facility] 2023-08-13 00:00:00 2023-08-13 00:00:00 Outpatient GC_BAHC_Tod d_J PRIV PRIV [id number] [facility] 2023-08-12 00:00:00 2023-08-12 00:00:00 Outpatient GC_BAHC_Tod d_J PRIV PRIV [id number] [facility] 2023-08-11 00:00:00 2023-08-11 00:00:00 Outpatient GC_BAHC_Tod d_J PRIV PRIV [id number] [facility] 2023-08-11 00:00:00 2023-08-11 00:00:00 Outpatient GC_BAHC_Tod d_J PRIV PRIV [id number] [facility] 2023-08-05 14:00:00 2023-08-05 14:00:00 Outpatient KYLEE MCGINNIS CHOCKAL[place]A M [facility] [id number] [facility] 2023-08-04 00:00:00 2023-08-04 00:00:00 Outpatient GC_BAHC_Tod d_J PRIV PRIV [id number] [facility] 2023-07-28 00:00:00 2023-07-28 00:00:00 Outpatient GC_BAHC_Tod d_J PRIV PRIV [id number] [facility] 2023-07-28 00:00:00 2023-07-28 00:00:00 Outpatient GC_BAHC_Tod d_J PRIV PRIV [id number] [facility] 2023-07-26 00:00:00 2023-07-26 00:00:00 Outpatient GC_BAHC_Tod d_J PRIV PRIV [id number] [facility] 2023-07-12 00:00:00 2023-07-12 00:00:00 Telephone Naa Lamb [facility] [id number] [facility] 2023-07-02 00:00:00 2023-07-02 00:00:00 Outpatient GC_BAHC_Tod d_J PRIV PRIV [id number] [facility] 2023-07-02 00:00:00 2023-07-02 00:00:00 Outpatient GC_BAHC_Tod d_J PRIV PRIV [id number] [facility] 2023-07-02 00:00:00 2023-07-02 00:00:00 Outpatient GC_BAHC_Tod d_J PRIV PRIV [id number] [facility] 2023-07-01 00:00:00 2023-07-01 00:00:00 Outpatient GC_BAHC_Tod d_J PRIV PRIV [id number] [facility] 2023-06-30 00:00:00 2023-06-30 00:00:00 Outpatient GC_BAHC_Tod d_J PRIV PRIV [id number] [facility] 2023-06-23 00:00:00 2023-06-23 00:00:00 Outpatient GC_BAHC_Tod d_J PRIV PRIV [id number] [facility] 2023-06-22 09:30:00 2023-06-22 11:17:47 Outpatient R NAA LAMB [facility] [id number] [facility] 2023-06-22 09:30:00 2023-06-22 11:17:47 Office Visit [place] [facility] 1..840.114 350.1.13.10 4.2.7.2.686 [id number] [facility] 2023-06-22 00:00:00 2023-06-22 00:00:00 Orders Only Doctor Unassigned, [place] [facility] 1..840.114 350.1.13.10 4.2.7.2.686 [id number] [facility] 2023-06-18 00:00:00 2023-06-18 00:00:00 Outpatient GC_BAHC_Tod d_J PRIV PRIV [id number] [facility] 2023-06-14 00:00:00 2023-06-14 00:00:00 Outpatient GC_BAHC_Tod d_J PRIV PRIV [id number] [facility] 2023-06-11 00:00:00 2023-06-11 00:00:00 Outpatient GC_BAHC_Tod d_J PRIV PRIV [id number] [facility] 2023-06-11 00:00:00 2023-06-11 00:00:00 Outpatient GC_BAHC_Tod d_J PRIV PRIV [id number] [facility] 2023-06-04 00:00:00 2023-06-04 00:00:00 Outpatient GC_BAHC_Tod d_J PRIV PRIV [id number] [facility] 2023-06-04 00:00:00 2023-06-04 00:00:00 Outpatient GC_BAHC_Tod d_J PRIV PRIV [id number] [facility] 2023-06-04 00:00:00 2023-06-04 00:00:00 Outpatient GC_BAHC_Tod d_J PRIV PRIV [id number] [facility] 2023-06-02 00:00:00 2023-06-02 00:00:00 Outpatient GC_BAHC_Tod d_J PRIV PRIV [id number] [facility] 2023-06-02 00:00:00 2023-06-02 00:00:00 Outpatient GC_BAHC_Tod d_J PRIV PRIV [id number] [facility] 2023-05-26 00:00:00 2023-05-26 00:00:00 Outpatient GC_BAHC_Tod d_J PRIV PRIV [id number] [facility] 2023-05-26 00:00:00 2023-05-26 00:00:00 Outpatient GC_BAHC_Tod d_J PRIV PRIV [id number] [facility] 2023-05-24 00:00:00 2023-05-24 00:00:00 Outpatient GC_BAHC_Tod d_J PRIV PRIV [id number] [facility] 2023-05-20 00:00:00 2023-05-20 00:00:00 Outpatient GC_BAHC_Tod d_J PRIV PRIV [id number] [facility] 2023-05-14 00:00:00 2023-05-14 00:00:00 Outpatient GC_BAHC_Tod d_J PRIV PRIV [id number] [facility] 2023-05-14 00:00:00 2023-05-14 00:00:00 Outpatient GC_BAHC_Tod d_J PRIV PRIV [id number] [facility] 2023-05-11 00:00:00 2023-05-11 00:00:00 Outpatient GC_BAHC_Tod d_J PRIV PRIV [id number] [facility] 2023-05-08 16:30:00 2023-05-08 17:09:00 Emergency X EM MCNEAL [facility] ERT [id number] [facility] 2023-05-08 16:30:00 2023-05-08 17:09:00 Emergency Em Mcneal [facility] 1.2.840.114 350.1.13.10 4.2.7.2.686 [id number] [facility] 2023-04-30 00:00:00 2023-04-30 00:00:00 Outpatient GC_BAHC_Tod d_J PRIV PRIV [id number] [facility] 2023-04-30 00:00:00 2023-04-30 00:00:00 Outpatient GC_BAHC_Tod d_J PRIV PRIV [id number] [facility] 2023-04-30 00:00:00 2023-04-30 00:00:00 Outpatient GC_BAHC_Tod d_J PRIV PRIV [id number] [facility] 2023-04-23 00:00:00 2023-04-23 00:00:00 Outpatient GC_BAHC_Tod d_J PRIV PRIV [id number] [facility] 2023-04-22 00:00:00 2023-04-22 00:00:00 Outpatient GC_BAHC_Tod d_J PRIV PRIV [id number] [facility] 2023-04-21 00:00:00 2023-04-21 00:00:00 Outpatient GC_BAHC_Tod d_J PRIV PRIV [id number] [facility] 2023-04-20 00:00:00 2023-04-20 00:00:00 Outpatient GC_BAHC_Tod d_J PRIV PRIV [id number] [facility] 2023-04-15 00:00:00 2023-04-15 00:00:00 Outpatient GC_BAHC_Tod d_J PRIV PRIV [id number] [facility] 2023-04-14 00:00:00 2023-04-14 00:00:00 Outpatient GC_BAHC_Tod d_J PRIV PRIV [id number] [facility] 2023-04-13 00:00:00 2023-04-13 00:00:00 Outpatient GC_BAHC_Tod d_J PRIV PRIV [id number] [facility] 2023-04-07 00:00:00 2023-04-07 00:00:00 Outpatient GC_BAHC_Tod d_J PRIV PRIV [id number] [facility] 2023-03-19 00:00:00 2023-03-19 00:00:00 Outpatient GC_BAHC_Tod d_J PRIV PRIV [id number] [facility] 2023-03-10 00:00:00 2023-03-10 00:00:00 Outpatient GC_BAHC_Tod d_J PRIV PRIV [id number] [facility] 2023-03-10 00:00:00 2023-03-10 00:00:00 Outpatient GC_BAHC_Tod d_J PRIV PRIV [id number] [facility] 2023-03-04 00:00:00 2023-03-04 00:00:00 Outpatient GC_BAHC_Tod d_J PRIV PRIV [id number] [facility] 2023-03-02 00:00:00 2023-03-02 00:00:00 Outpatient GC_BAHC_Tod d_J PRIV PRIV [id number] [facility] 2023-02-25 00:00:00 2023-02-25 00:00:00 Outpatient GC_BAHC_Tod d_J PRIV PRIV [id number] [facility] 2023-02-05 00:00:00 2023-02-05 00:00:00 LANDON Sullivan: [address] [place] [phone] , Ph. [facility] - GC[facility]HC[facility] [id number] [facility] 2023-02-02 00:00:00 2023-02-02 00:00:00 Outpatient GC_BAHC_Tod d_J PRIV PRIV [id number] [facility] 2023-02-02 00:00:00 2023-02-02 00:00:00 Outpatient GC_BAHC_Tod d_J PRIV PRIV [id number] [facility] 2023-02-02 00:00:00 2023-02-02 00:00:00 Outpatient GC_BAHC_Tod d_J PRIV PRIV [id number] [facility] 2023-02-02 00:00:00 2023-02-02 00:00:00 Outpatient GC_BAHC_Tod d_J PRIV PRIV [id number] [facility] 2023-02-02 00:00:00 2023-02-02 00:00:00 Pino Almeida MD: [address] [place] [phone] , Ph. [facility] - [facility] [id number] [facility] 2023-01-27 00:00:00 2023-01-27 00:00:00 Randi Parsons PA: [address] [place] [phone] , Ph. [facility] - [facility] [id number] [facility] 2023-01-20 00:00:00 2023-01-20 00:00:00 Outpatient GC_BAHC_Tod d_J PRIV PRIV [id number] [facility] 2023-01-20 00:00:00 2023-01-20 00:00:00 Outpatient GC_BAHC_Tod d_J PRIV PRIV [id number] [facility] 2023-01-20 00:00:00 2023-01-20 00:00:00 Outpatient GC_BAHC_Tod d_J PRIV PRIV [id number] [facility] 2023-01-18 11:00:00 2023-01-18 11:31:14 Outpatient R [facility] [id number] [facility] 2023-01-18 11:00:00 2023-01-18 11:31:14 [facility] OFF[facility] BUILD[facility] .2.840.114 350.1.13.10 4.2.7.2.686 [id number] [facility] 2023-01-12 00:00:00 2023-01-12 00:00:00 Telephone [facility] MEDICAL OFFICE BUILDING .2.840.114 350.1.13.10 4.2.7.2.686 [id number] [facility] 2022-12-29 00:00:00 2022-12-29 00:00:00 LANDON Sullivan: [address] [place] [phone] , Ph. [facility] - [facility] [id number] [facility] 2022-12-19 00:00:00 2022-12-19 00:00:00 Outpatient GC_BAHC_Tod d_J PRIV PRIV [id number] [facility] 2022-12-19 00:00:00 2022-12-19 00:00:00 Outpatient GC[facility]BAHC_Tod d_[facility] [id number] [facility] 2022-12-18 00:00:00 2022-12-18 00:00:00 Outpatient GC_BAHC_Tod d_J [facility] [id number] [facility] 2022-12-15 00:00:00 2022-12-15 00:00:00 LANDON Sullivan: [facility] [place] [employer] [place] [phone] , Ph. [facility] [id number] [facility] 2022-12-08 15:30:00 2022-12-08 15:30:00 Outpatient NAA CORREA [facility] [id number] [facility] 2022-11-24 00:00:00 2022-11-24 00:00:00 LANDON Sullivan: [facility] [place] [employer] [place] [phone] , Ph. [facility] [id number] [facility] 2022-11-10 15:30:00 2022-11-10 15:30:00 Outpatient NAA CORREA [facility] [id number] [facility] 2022-11-02 00:00:00 2022-11-02 00:00:00 Patient Outreach Jayna Rizvi 1.2.840.114 350.1.13.10 4.2.7.2.686 [id number] [facility] 2022-10-30 00:00:00 2022-10-30 00:00:00 Outpatient GC_BAHC_Tod d_J [facility] [id number] [facility] 2022-10-30 00:00:00 2022-10-30 00:00:00 Outpatient GC[facility]BAHC_Tod d_J [facility] [id number] [facility] 2022-10-30 00:00:00 2022-10-30 00:00:00 Outpatient GC_BAHC_Tod d_J PRIV PRIV [id number] [facility] 2022-10-29 00:00:00 2022-10-29 00:00:00 Outpatient GC_BAHC_Tod d_J PRIV PRIV [id number] [facility] 2022-10-29 00:00:00 2022-10-29 00:00:00 Outpatient GC_BAHC_Tod d_J PRIV PRIV [id number] [facility] 2022-10-16 00:00:00 2022-10-16 00:00:00 LANDON Sullivan: [address] [place] [phone] , Ph. [facility] - GC_[facility]HC_[facility] [id number] [facility] 2022-10-09 00:00:00 2022-10-09 00:00:00 LANDON Sullivan: [address] [place] [phone] , Ph. [facility] - [facility] [id number] [facility] 2022-10-03 00:00:00 2022-10-03 00:00:00 Outpatient GC_BAHC_Tod d_J PRIV PRIV [id number] [facility] 2022-10-03 00:00:00 2022-10-03 00:00:00 Outpatient GC_BAHC_Tod d_J PRIV PRIV [id number] [facility] 2022-10-03 00:00:00 2022-10-03 00:00:00 Outpatient GC_BAHC_Tod d_J PRIV PRIV [id number] [facility] 2022-10-03 00:00:00 2022-10-03 00:00:00 Outpatient GC_BAHC_Tod d_J PRIV PRIV [id number] [facility] 2022-10-03 00:00:00 2022-10-03 00:00:00 Outpatient GC[facility]BAHC_Tod d_[facility] [id number] [facility] 2022-10-03 00:00:00 2022-10-03 00:00:00 Outpatient GC_BAHC_Tod d_J PRIV PRIV [id number] [facility] 2022-09-29 00:00:00 2022-09-29 00:00:00 Outpatient GC_BAHC_Tod d_J [facility] PRIV [id number] [facility] 2022-09-29 00:00:00 2022-09-29 00:00:00 Outpatient GC[facility]BAHC_Tod d_J [facility] [id number] [facility] 2022-09-29 00:00:00 2022-09-29 00:00:00 Outpatient GC_BAHC_Tod d_J [facility] [id number] [facility] 2022-09-29 00:00:00 2022-09-29 00:00:00 Pino Almeida MD: [address] [place] [phone] , Ph. [facility] - [facility] [id number] [facility] 2022-09-25 10:30:00 2022-09-25 10:47:39 Outpatient R DEE DEE ESQUIVEL [facility] [id number] [facility] 2022-09-25 10:30:00 2022-09-25 10:47:39 Office Visit Dee [facility] 1..840.114 350.1.13.10 4.2.7.2.686 [id number] [facility] 2022-09-23 00:00:00 2022-09-23 00:00:00 Patient Outreach Ileana Szymanski [facility] 1..840.114 350.1.13.10 4.2.7.2.686 [id number] [facility] 2022-09-22 00:00:00 2022-09-22 00:00:00 Randi Parsons PA: [address] [place] [phone] , Ph. [facility] GC[facility] [id number] [facility] 2022-09-21 00:00:00 2022-09-21 00:00:00 Outpatient GC_BAHC_Tod d_J [facility] [id number] [facility] 2022-09-20 00:00:00 2022-09-20 00:00:00 Outpatient GC_BAHC_Tod d_J [facility] [id number] [facility] 2022-09-15 00:00:00 2022-09-15 00:00:00 Randi Parsons PA: [address] [place] [phone] , Ph. [facility] [id number] [facility] 2022-09-10 13:00:00 2022-09-10 13:19:43 Outpatient R NAA LAMB [facility] [id number] [facility] 2022-09-10 13:00:00 2022-09-10 13:19:43 [facility] 1.2.840.114 350.1.13.10 4.2.7.2.686 [id number] [facility] 2022-09-10 00:00:00 2022-09-10 00:00:00 Patient Secure Msg Doctor Unassigned, [place] [facility] ST[facility] 1.2.840.114 350.1.13.10 4.2.7.2.686 [id number] [facility] 2022-09-10 00:00:00 2022-09-10 00:00:00 Orders Only Doctor Unassigned, [place] [facility] 1.2840.114 350.1.13.10 4.2.7.2.686 [id number] [facility] 2022-09-09 00:00:00 2022-09-09 00:00:00 Outpatient GC[facility]BAHC_Tod d_J [facility] [id number] [facility] 2022-09-08 00:00:00 2022-09-08 00:00:00 LANDON Sullivan: [address] [place] [phone] , Ph. [facility] - [facility] [id number] [facility] 2022-09-04 12:11:00 2022-09-04 23:59:00 Outpatient BLAIR YANG HOWARD [facility] [id number] [facility] 2022-09-04 12:11:00 2022-09-04 23:59:00 Hospital Encounter Blair Ervin [facility] 1.840.114 350.1.13.10 4.2.7.2.686 [id number] [facility] 2022-09-04 00:00:00 2022-09-04 00:00:00 Orders Only Doctor Unassigned, [place] [facility] 1.2840.114 350.1.13.10 4.2.7.2.686 [id number] [facility] 2022-08-29 00:00:00 2022-08-29 00:00:00 Patient Secure Msg Doctor Unassigned, [place] [facility] 1.2840.114 350.1.13.10 4.2.7.2.686 [id number] [facility] 2022-08-21 11:30:00 2022-08-21 11:45:00 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, Ang - [facility] [place] 1..840.114 350.1.13.10 4.2.7.2.686 [id number] [facility] 2022-08-21 09:00:00 2022-08-21 10:20:54 Outpatient R BLAIR ERVIN HOWARD [facility] [id number] [facility] 2022-08-21 09:00:00 2022-08-21 10:20:54 Office Visit Blair [facility] 1..840.114 350.1.13.10 4.2.7.2.686 [id number] [facility] 2022-08-21 00:00:00 2022-08-21 00:00:00 Orders Only Doctor Unassigned, [place] [facility] 1.840.114 350.1.13.10 4.2.7.2.686 [id number] [facility] 2022-08-11 00:00:00 2022-08-11 00:00:00 Patient Outreach Ileana Szymanski 1..840.114 350.1.13.10 4.2.7.2.686 [id number] [facility] 2022-07-30 13:00:00 2022-07-30 13:00:00 Outpatient R CORONA PETROS [facility] [id number] [facility] 2022-07-23 00:00:00 2022-07-23 00:00:00 Patient Outreach Jayna Rizvi 1..840.114 350.1.13.10 4.2.7.2.686 [id number] [facility] 2022-07-21 00:00:00 2022-07-21 00:00:00 Orders Only Doctor Unassigned, [place] [facility] 1.2.840.114 350.1.13.10 4.2.7.2.686 [id number] [facility] 2022-06-27 00:00:00 2022-06-27 00:00:00 Orders Only Doctor Unassigned, [place] [facility] 1.2.840.114 350.1.13.10 4.2.7.2.686 [id number] [facility] 2022-06-11 00:00:00 2022-06-11 00:00:00 Patient Outreach Ileana Szymanski TRIXIE DAVIS 1.2.840.114 350.1.13.10 4.2.7.2.686 [id number] [facility] 2022-06-09 00:00:00 2022-06-09 00:00:00 Patient Outreach Jayna Rizvi TRIXIE DAVIS 1.2.840.114 350.1.13.10 4.2.7.2.686 [id number] [facility] 2022-06-04 00:00:00 2022-06-04 00:00:00 Patient Outreach Zak Spears Ever DAVIS 1.2.840.114 350.1.13.10 4.2.7.2.686 [id number] [facility] 2022-05-29 00:00:00 2022-05-29 00:00:00 Patient Outreach Regan Zak Ever OLIVERA [facility] 1.2.840.114 350.1.13.10 4.2.7.2.686 [id number] [facility] 2022-05-25 00:00:00 2022-05-25 00:00:00 Patient Outreach Regan Zak Ever DAVIS 1.2.840.114 350.1.13.10 4.2.7.2.686 [id number] [facility] 2022-05-22 00:00:00 2022-05-22 00:00:00 Patient Outreach Jayna RizviIggy C[facility] 1.2.840.114 350.1.13.10 4.2.7.2.686 [id number] [facility] 2022-05-20 00:00:00 2022-05-20 00:00:00 Patient Outreach Zak Spears TRIXIE DAVIS 1.2.840.114 350.1.13.10 4.2.7.2.686 [id number] [facility] 2022-05-19 10:00:00 2022-05-19 11:00:00 Patient Outreach Jayna RizviGay DAVIS 1.2.840.114 350.1.13.10 4.2.7.2.686 [id number] [facility] 2022-05-18 00:00:00 2022-05-18 00:00:00 Patient Outreach Jayna RizviGay OLIVERA [facility] 1.2.840.114 350.1.13.10 4.2.7.2.686 [id number] [facility] 2022-05-15 00:00:00 2022-05-15 00:00:00 Patient Outreach Jayna RizviGay DAVIS 1.2.840.114 350.1.13.10 4.2.7.2.686 [id number] [facility] 2022-05-11 00:00:00 2022-05-11 00:00:00 Patient Outreach Kim Darlene TRIXIE DAVIS 1.2.840.114 350.1.13.10 4.2.7.2.686 [id number] [facility] 2022-05-08 00:00:00 2022-05-08 00:00:00 Transition of Care Nidia George 1.2.840.114 350.1.13.10 4.2.7.2.686 [id number] [facility] 2022-05-06 00:00:00 2022-05-06 00:00:00 Patient Outreach Darlene Alvarez 1.2.840.114 350.1.13.10 4.2.7.2.686 [id number] [facility] 2022-05-04 00:00:00 2022-05-04 00:00:00 Transition of Care Nidia George 1.2.840.114 350.1.13.10 4.2.7.2.686 [id number] [facility] 2022-05-02 11:45:00 2022-05-02 16:29:00 Emergency X ALICIA TALLEY [facility] ERT [id number] [facility] 2022-05-02 11:45:00 2022-05-02 16:29:00 Emergency Alicia Tal[facility] 1.20.114 350.1.13.10 4.2.7.2.686 [id number] [facility] 2022-04-29 16:35:00 2022-05-01 18:23:00 Inpatient X DANIEL KUNZ [facility] ZOEY [id number] [facility] 2022-04-29 16:35:00 2022-05-01 18:23:00 Hospital Encounter Bernardo Rodríguez, Dalton Watson , Daniel Paredes [facility] 1.2.840.114 350.1.13.10 4.2.7.2.686 [id number] [facility] 2022-04-28 18:09:00 2022-04-28 21:49:00 Emergency X BERNARDO RODRÍGUEZ [facility] ERT [id number] [facility] 2022-04-28 18:09:00 2022-04-28 21:49:00 Emergency Bernardo Rodríguez [facility] 1.2.840.114 350.1.13.10 4.2.7.2.686 [id number] [facility] Results Test Description Test Time Test Comments Results Result Co mments Source TSH, THIRD [id number] 04:48:56* Test Item Value Reference Range Interpretation Comme nts TSH, THIRD GENERATION (test code = 2821) 0.698 UIU/ML 0.400-4.100 PSA, [id number] 04:48:56* Test Item Value Reference Range Interpretation Comme nts PSA, TOTAL (test code = 2606) 2.51 NG/ML See_Comment NOTE: Methodolog y is Zuleika Jayashree Electrochemiluminescence Immunoassay traceable to WHO reference standard 96/760. UNLESS OTHERWISE INDICATED, ALL TESTING PERFORMED [employer] [address] [place] [address] WAISTLINE JOINER LOCKSTITCH: KODI TRIANA M.D. CLIA NUMBER [id number] [facility] [place]. [id number] [Automated message] The system which generated this result transmitted reference range: <=4.00. The reference range was not used to interpret this result as normal/abnormal. LIPID [id number] 04:23:44* Test Item Value Reference Range Interpretation [...] SPECIMENS. FOR MOREINFORMATION, SEE CLIENT ANNOUNCEMENT AT [email or web address] RISK RATIO LDL/HDL (test code = 2238) 2.87 RATIO <3.55 COMPREHENSIVE METABOLIC [id number] 04:23:44* Test Item Value Reference Range Interpretation Comme nts GLUCOSE (test code = 2216) 89 MG/DL 70-99 BUN (test code = 2207) 14 MG/DL 8-23 CREATININE (test code = 2213) 0.85 MG/DL 0.80-1.40 eGFR (2020 CKD-EPI) (test code = 04563) 93 ML/MIN/1.73 >60 CALC BUN/CREAT (test code [...] G/DL 3.5-5.2 CALC GLOBULIN (test code = 2239) 3.3 G/DL 1.9-3.7 CALC A/G RATIO (test [...] code = 2218) 19 U/L 5-50 HEMOGLOBIN [id number] 03:10:09* Test Item Value Reference Range Interpretation Comme nts HEMOGLOBIN A1c (test code = 28679) 5.5 % 4.2-5.6 CBC W/AUTO DIFF WITH [id number] 01:57:11* Test Item Value Reference Range Interpretation [...] = 1065) 0.0 /100 WBC'S See_Comment [Automated [employer] ge] The system which generated this result [...] 0.00-0.10 ABS NUCLEATED RBCS (test code = 52815) 0.00 K/UL 0.00-0.11 Lactic Acid Whole [id number] 17:48:24* Test Item Value Reference Range Interpretation Comme nts LACTIC ACID (test code = 5181393524) 1.59 mmol/L 0.50-2.20 Lab Interpretation (test cod e = 94327-4) Normal [facility] METABOLIC PANEL (NA, K, CL, CO2, GLUCOSE, BUN, CREATININE, CA)2022-05-01 06:55:06* Test Item Value Reference Range Interpretation Comme nts NA (test code = 9192075992) 140 mmol/L 135-145 K (test code = 9465969695) 3.9 mmol/L 3.5-5.0 CL (test code = 1583182859) 111 mmol/L 98-108 H CO2 TOTAL (test code = 3097306152) 24 mmol/L 23-31 AGAP (test code = 3482999132) 2-16 BUN (test code = 1413943217) 25 mg/dL 7-23 H GLUCOSE (test code = 2205284136) 86 mg/dL 70-110 CREATININE (test code = 1273572696) 0.64 mg/dL 0.60-1.25 CALCIUM (test code = 7423918545) 8.0 mg/dL 8.6-10.6 L eGFR (test code = 7158083745) mL/min/1.73m2 NEYMAR (test code = NEYMAR) Association [...] imaging tests). Lab Interpretation (test code = 30114-3) [facility] Test Item Value Reference Range Interpretation Comme nts MAGNESIUM (test code = 4120654121) 1.9 mg/dL 1.7-2.4 Lab Interpretation (test cod e = 38232-9) [facility]:06* Test Item Value Reference Range Interpretation Comme nts PHOSPHORUS (test code = 0500445912) 2.5 mg/dL 2.5-5.0 Lab Interpretation (test cod e = 90600-1) [facility] 20:28:01* Test Item Value Reference Range Interpretation Comme nts Height (test code = 7831517239) in Weight (test code = 3287836155) lbs Systolic BP (test code = 5437129857) mmHg Diastolic BP (test code = 9007311950) mmHg Heart Rate (test code = 0073614981) bpm LVOT stroke volume (test code = 5423705847) 47.40 cm3 EF(Teich) (test code = 7113217241) 63.50 % LVIDD (test code = 8254985190) 5.20 cm LVIDS (test code = 3712549989) 3.40 cm IVS (test code = 8806928749) 1.24 cm LVPWD (test code = 7250736247) 1.21 cm LVOT diameter (test code = 0271731944) 2.29 cm FS (test code = 7085622222) 35 % MV Peak E Jovon (test code = 4936974984) 65.6 cm/s E wave decelartion time (test code = 3044720032) 0.19 s LVOT peak jovon (test code = 5627552927) 65.1 cm/s LVOT mn grad (test code = 2683198410) mmHg LA size (test code = 0619186405) 3.6 cm Aortic valve mean velocity (test code = 9002568405) 73.8 cm/s Ao peak jovon (test code = 1571322651) 115.8 cm/s Ao VTI (test code = 6045437596) 17.4 cm AV LVOT peak gradient (test code = 4098842538) mmHg LVOT peak VTI (test code = 8988584080) 11.5 cm AV area by cont VTI (test code = 9546328084) 2.7 cm2 AV area peak jovon (test code = 1983434249) 2.3 cm2 LV V1 mean (test code = 1743507038) 40.20 cm/s Ao max PG (test code = 7516617734) 5.40 mm[Hg] MV Prop V (test code = 4307777574) 54.90 cm/s Ao root annulus (test code = 2561088415) 3.4 cm Ao root diam (test code = 2742305255) 3.40 cm AV peak gradient (test code = 2167768109) mmHg AV valve area (test code = 3720620523) 2.70 cm2 AV mean gradient (test code = 1393992222) mmHg Aortic root (test code = 0399363525) 3.4 cm PW (test code = 3536552987) 1.21 cm 0.6-1.1 EF - 2D (test code = 53693999) 63.50 % Interventricular Septum Diastolic Thickness by 2D (test code = 7037477) 1.24 cm BSA (test code = 1882172686) 1.84 m2 Radiology Study observation (narrative) (test code = 64508-5) NEYMAR (test code = NEYMAR) ?Left?Ventricle: There is mild concentric hypertrophy. Normal wall motion. Normal systolic function with a visually estimated EF of 55 - 60%. Septal motion is normal. Diastolic dysfunction, cannot be graded due to Afib ?Pulmonic?Valve: Pulmonic valve is normal in structure and function. ?Tricuspid?Valve: Tricuspid valve structure is normal. ?Aortic?Valve: No hemodynamically significant . [facility]2022-[facility]-30 16:26:24* Test Item Value Reference Range Interpretation Comme nts HGB A1C (test code = 4548-4) 5.5 % 4.0-5.7 NEYMAR (test code = NEYMAR) Reference RangesNormal: <5.7%Prediabetes: 5.7 - 6.4%Diabetes: > 6.5% Lab Interpretation (test code = 20577-7) Normal [facility] METABOLIC PANEL (NA, K, CL, CO2, GLUCOSE, BUN, CREATININE, CA)2022-04-30 16:15:38* Test Item Value Reference Range Interpretation Comme nts NA (test code = 2754991625) 144 mmol/L 135-145 K (test code = 7756413173) 4.1 mmol/L 3.5-5.0 CL (test code = 3660169106) 113 mmol/L 98-108 H CO2 TOTAL (test code = 2127336629) 28 mmol/L 23-31 AGAP (test code = 4972433883) 2-16 BUN (test code = 3511689873) 31 mg/dL 7-23 H GLUCOSE (test code = 2383002255) 142 mg/dL 70-110 H CREATININE (test code = 8760240853) 0.65 mg/dL 0.60-1.25 CALCIUM (test code = 3890578946) 8.4 mg/dL 8.6-10.6 L eGFR (test code = 2487097514) mL/min/1.73m2 NEYMAR (test code = NEYMAR) Association [...] imaging tests). Lab Interpretation (test code = 04076-4) [facility]normal [facility] 16:15:38* Test Item Value Reference Range Interpretation Comme nts MAGNESIUM (test code = 6695943957) 2.1 mg/dL 1.7-2.4 Lab Interpretation (test cod e = 22550-9) Normal [facility] (for use with Heparin Infusion)2022-04-30 13:43:36* Test Item Value Reference Range Interpretation Comme nts APTT Patient (test code = 3173-2) See_Comment H [Automated [employer]] The system which generated this result transmitted reference range: 26 - 36 Seconds. The reference range was not used to interpret this result as normal/abnormal. Lab Interpretation (test code = 51889-8) Abnormal [facility] F35617-52-48 06:04:45* Test Item Value Reference Range Interpretation Comme [facility] FREE T3 (test code = 9715395717) 2.48 pg/mL 2.77-5.27 L Lab Interpretation (test cod e = 02709-0) Abnormal [facility]thrombin Time / SOE8261-85-55 05:58:05* Test Item Value Reference Range Interpretation Comme [facility] PROTIME PATIENT (test code = 5964-2) See_Comment H [Automated [employer]] The system which generated this result transmitted reference range: 10.1 - 12.6 Seconds. The reference range was not used to interpret this result as normal/abnormal. INR (test code = 6301-6) Normal INR <1.1; Warfarin Therapeutic range 2.0 to 3.0 or 2.5 to 3.5, depending upon the indications. Lab Interpretation (test code = 72132-6) [facility]* Test Item Value Reference Range Interpretation Comme nts APTT Patient (test code = 3173-2) See_Comment [Automated messa ge] The system which generated this result transmitted reference range: 26 - 36 Seconds. The reference range was not used to interpret this result as normal/abnormal. Lab Interpretation (test code = 79914-1) Normal [facility] TexasLIPID PAN[facility] (65398)(TOTAL CHOLESTEROL, TRIGLYCERIDES, HDL)2022-04-30 05:46:07* Test Item Value Reference Range Interpretation Comme nts CHOL (test code = 8201254042) 180 mg/dL 120-200 HDL (test code = 0819580501) 30 mg/dL >40 L HDLC RATIO (test code = 4917948658) See_Comment H [Automated messa ge] The system which generated this result transmitted reference range: <=5.0. The reference range was not used to interpret this result as normal/abnormal. TRIG (test code = 7693574621) 104 mg/dL 30-170 LDL CHOL (test code = 69026-5) 129 mg/dL See_Comment [Automated messa ge] The system which generated this result transmitted reference range: <=160. The reference range was not used to interpret this result as normal/abnormal. VLDL (test code = 7644848471) 21 mg/dL 5-60 Lab Interpretation (test code = 61100-5) [facility]normal [facility] 05:46:07* Test Item Value Reference Range Interpretation Comme nts MAGNESIUM (test code = 7309736527) 2.2 mg/dL 1.7-2.4 Lab Interpretation (test cod e = 34711-8) Normal [facility] TexasCREATINE DAHUEE3525-08-53 05:46:07* Test Item Value Reference Range Interpretation Comme nts CK (test code = 0594597301) 47 U/L 33-194 Lab Interpretation (test cod e = 33774-7) Normal [facility] TexasOSMOLALITY, SERUM OR CDVYZM2201-15-87 05:45:32 * Test Item Value Reference Range Interpretation Comme nts OSMOLALITY (test code = 2692-2) See_Comment HH [Automated messa ge] The system which generated this result transmitted reference range: 278 - 305 mOsm/kg. The reference range was not used to interpret this result as normal/abnormal. Lab Interpretation (test code = 50783-3) Abnormal [facility] TexasTHYROID STIMULATING WHBCEUA7433-70-80 03:23:38 * Test Item Value Reference Range Interpretation Comme nts TSH (test code = 0067830172) See_Comment L Biotin has been reported to cause a negative bias, interpret results relative to patient's use of biotin. [Automated message] The system which generated this result transmitted reference range: 0.45 - 4.70 mIU/L. The reference range was not used to interpret this result as normal/abnormal. Lab Interpretation (test code = 40178-7) Abnormal [facility] TexasTroponin E2699-96-24 00:18:11* Test Item Value Reference Range Interpretation Comments TROPONIN I (test code = 7085261458) 0.010 ng/mL See_Comment [Automated message] The system [...] of biotin. Lab Interpretation (test code = 93854-3) Normal [facility] TexasN-TERMINAL QPL-ZEH4700-31-07 00:18:11* Test Item Value Reference Range Interpretation Comme nts NT-proBNP (test code = 6171988034) 1070 pg/mL See_Comment H [Automated message] The system which generated this result transmitted reference range: <=125. The reference range was not used to interpret this result as normal/abnormal. NEYMAR (test code = NEYMAR) Biotin has been reported to cause a negative bias, interpret results relative to patient's use of biotin. Lab Interpretation (test code = 97908-7) Abnormal [facility]CMP2022-[facility]-07 00:04:30* Test Item Value Reference Range Interpretation Comme nts NA (test code = 9555803369) 152 mmol/L 135-145 H K (test code = 8655572622) 3.9 mmol/L 3.5-5.0 CL (test code = 2417038344) 119 mmol/L 98-108 H CO2 TOTAL (test code = 6123202270) 21 mmol/L 23-31 L AGAP (test code = 0211865371) 2-16 BUN (test code = 9251869496) 37 mg/dL 7-23 H GLUCOSE (test code = 2175320541) 112 mg/dL 70-110 H CREATININE (test code = 9431533726) 1.25 mg/dL 0.60-1.25 TOTAL BILI (test code = 3321782627) 1.3 mg/dL 0.1-1.1 H CALCIUM (test code = 8642046055) 9.2 mg/dL 8.6-10.6 T PROTEIN (test code = 2200783726) 7.5 g/dL 6.3-8.2 ALBUMIN (test code = 4581231254) 4.4 g/dL 3.5-5.0 ALK PHOS (test code = 7318914903) 96 U/L 34-122 ALTv (test code = 1742-6) 21 U/L 5-50 AST(SGOT) (test code = 5486903770) 21 U/L 13-40 eGFR (test code = 5861235365) mL/min/1.73m2 NEYMAR (test code = NEYMAR) Association [...] imaging tests). Lab Interpretation (test code = 20126-2) Abnormal [facility] with Kejl5963-52-47 23:40:41* Test Item Value Reference Range Interpretation Comme nts WBC (test code = 6690-2) See_Comment H [Automated [employer]] The system which generated this result transmitted reference range: 4.20 - 10.70 10*3/?L. The reference range was not used to interpret this result as normal/abnormal. RBC (test code = 789-8) See_Comment [Automated [employer]] The system which generated this result transmitted [...] 34.3 g/dL 31.2-35.0 RDW-SD (test code = 41568-5) 50.5 fL 38.5-51.6 RDW-CV (test code = 788-0) 14.7 % 12.1-15.4 PLT (test code = 777-3) See_Comment [Automated [employer]] The system which generated this result transmitted reference range: 150 - 328 10*3/?L. The reference range was not used to interpret this result as normal/abnormal. MPV (test code = 29083-1) 11.5 fL 9.8-13.0 NRBC/100 WBC (test code = 5170025322) See_Comment [Automated me ssage] The system which generated this result transmitted reference range: 0.0 - 10.0 /100 WBCs. The reference range was not used to interpret this result as normal/abnormal. NRBC x10^3 (test code = 0901725067) <0.01 See_Comment [Automated messa ge] The system which generated this result transmitted reference range: 10*3/?L. The reference range was not used to interpret this result as normal/abnormal. GRAN MAT (NEUT) % (test code = 770-8) 78.4 % IMM GRAN % (test code = 1037828831) 0.50 % LYMPH % (test code = 736-9) 9.5 % MONO % (test code = 5905-5) 11.0 % EOS % (test code = 713-8) 0.3 % BASO % (test code = 706-2) 0.3 % GRAN MAT x10^3(ANC) (test code = 0435986750) 9.11 10*3/uL 1.99-6.95 H IMM GRAN x10^3 (test code = 5961262550) 0.06 10*3/uL 0.00-0.06 LYMPH x10^3 (test code = 731-0) 1.10 10*3/uL 1.09-3.23 MONO x10^3 (test code = 742-7) 1.28 10*3/uL 0.36-1.02 H EOS x10^3 (test code = 711-2) 0.04 10*3/uL 0.06-0.53 L BASO x10^3 (test code = 704-7) 0.04 10*3/uL 0.01-0.09 Lab Interpretation (test code = 05647-7) Abnormal [facility] L3607-41-24 00:50:12* Test Item Value Reference Range Interpretation Comments TROPONIN I (test code = 0731101514) 0.007 ng/mL See_Comment [Automated message] The system [...] of biotin. Lab Interpretation (test code = 61534-7) Normal [facility]N-TERMINAL TXM-UOT8888-86-06 00:50:12* Test Item Value Reference Range Interpretation Comme nts NT-proBNP (test code = 1626075386) 1120 pg/mL See_Comment H [Automated message] The system which generated this result transmitted reference range: <=125. The reference range was not used to interpret this result as normal/abnormal. NEYMAR (test code = NEYMAR) Biotin has been reported to cause a negative bias, interpret results relative to patient's use of biotin. Lab Interpretation (test code = 14409-5) [facility] (NA, K, CL, CO2, GLUCOSE, BUN, CREATININE, CA)2022-04-29 00:39:11* Test Item Value Reference Range Interpretation Comme nts NA (test code = 8588187165) 150 mmol/L 135-145 H K (test code = 4933229148) 4.0 mmol/L 3.5-5.0 CL (test code = 8312488366) 117 mmol/L 98-108 H CO2 TOTAL (test code = 1908327464) 20 mmol/L 23-31 L AGAP (test code = 4033042593) 2-16 BUN (test code = 9749156057) 23 mg/dL 7-23 GLUCOSE (test code = 3858956273) 105 mg/dL 70-110 CREATININE (test code = 5438240388) 0.89 mg/dL 0.60-1.25 CALCIUM (test code = 9353972966) 8.9 mg/dL 8.6-10.6 eGFR (test code = 2457969837) mL/min/1.73m2 NEYMAR (test code = NEYMAR) Association [...] imaging tests). Lab Interpretation (test code = 06863-9) Abnormal [facility] Texas[facility] Function [facility] (ALB, T.PRO, BILI T, BU/BC, ALT, AST, ALK PHOS)2022-04-29 00:39:11* Test Item Value Reference Range Interpretation Comme nts TOTAL BILI (test code = 3746304268) 1.3 mg/dL 0.1-1.1 H BILI UNCON (test code = 9443534273) 1.0 mg/dL 0.1-1.1 BILI CONJ (test code = 3122633935) 0.0 mg/dL 0.0-0.3 T PROTEIN (test code = 1399639386) 7.6 g/dL 6.3-8.2 ALBUMIN (test code = 6745251033) 4.2 g/dL 3.5-5.0 ALK PHOS (test code = 5010772868) 108 U/L 34-122 ALTv (test code = 1742-6) 25 U/L 5-50 AST(SGOT) (test code = 9319213448) 27 U/L 13-40 Lab Interpretation (test cod e = 57222-5) Abnormal [facility] TexasLipase Hadjf2667-77-11 00:39:11* Test Item Value Reference Range Interpretation Comme nts LIPASE (test code = 8229523731) 67 U/L 0-220 Lab Interpretation (test cod e = 93956-1) Normal [facility] TexasCBC with Vtoffxcnwzva9294-26-22 00:26:53* Test Item Value Reference Range Interpretation Comme nts WBC (test code = 6690-2) See_Comment [Automated [place] ge] The system which generated this result transmitted reference range: 4.20 - 10.70 10*3/?L. The reference range was not used to interpret this result as normal/abnormal. RBC (test code = 789-8) See_Comment [Automated messa ge] The system which [...] 34.5 g/dL 31.2-35.0 RDW-SD (test code = 90737-6) 50.3 fL 38.5-51.6 RDW-CV (test code = 788-0) 14.6 % 12.1-15.4 PLT (test code = 777-3) See_Comment [Automated [place] ge] The system which generated this result transmitted reference range: 150 - 328 10*3/?L. The reference range was not used to interpret this result as normal/abnormal. MPV (test code = 32260-5) 11.0 fL 9.8-13.0 NRBC/100 WBC (test code = 1104542378) See_Comment [Automated me ssage] The system which generated this result transmitted reference range: 0.0 - 10.0 /100 WBCs. The reference range was not used to interpret this result as normal/abnormal. NRBC x10^3 (test code = 6120183298) <0.01 See_Comment [Automated messa ge] The system which generated this result transmitted reference range: 10*3/?L. The reference range was not used to interpret this result as normal/abnormal. GRAN MAT (NEUT) % (test code = 770-8) 65.4 % IMM GRAN % (test code = 1759508167) 0.20 % LYMPH % (test code = 736-9) 16.9 % MONO % (test code = 5905-5) 14.2 % EOS % (test code = 713-8) 2.6 % BASO % (test code = 706-2) 0.7 % GRAN MAT x10^3(ANC) (test code = 5817495624) 5.37 10*3/uL 1.99-6.95 IMM GRAN x10^3 (test code = 8042292104) <0.03 0.00-0.06 LYMPH x10^3 (test code = 731-0) 1.39 10*3/uL 1.09-3.23 MONO x10^3 (test code = 742-7) 1.17 10*3/uL 0.36-1.02 H EOS x10^3 (test code = 711-2) 0.21 10*3/uL 0.06-0.53 BASO x10^3 (test code = 704-7) 0.06 10*3/uL 0.01-0.09 Lab Interpretation (test code = 77410-1) Abnormal [facility] Notes Date/Time Note Provider Source 2023-07-13 09:00:10 n9JTxx32I6T6s9zPT3FJ 7hvia0PjIp/+/ 6yV87OO76rlV2ZcHO8s1XhiRNzmEX6218-9 09:00:10 I contacted pt on 07/13/23 to schedule EP appt and echo -- pt is scheduled on 08/05/23. 90210-6Marvuogfe encounter WlunEX7160-72-73P04:02:24Telephone encounter NoteTXT1.2.840.815019.1.13.104.2.7. 2.160141|[id number] for patient uhsa88804-1KdcvZJ489262684Kxehuvse [id number] 9KTSHBUOAPCRZJNSLLEWNZA3547-91-74L9 9:02:241.2.840.691025.1.72.3.15|1.2 .840.375065.1.13.104.2.7.2.727879_1 [id number] Naseem Hsu [facility] 2023-07-13 08:43:22 DUggNrWvRlycWkXDvp8W w906KkDzlefxSAw +/zaf+CC7c3G1n8mSptj8DL5Jf3Dk7779-0 08:43:22 This case, recommended EP evaluation for ILR placement. Please also plan for echocardiogram on the same day as the EP visit. Referral placed. Please schedule 72906-0Aopuamqtv encounter PdypCC8954-07-21A85:44:24Telephone encounter NoteTXT1.2.840.282097.1.13.104.2.7. 2.041571|[id number] for patient cmpn83626-3JqwhWQSJFEQJQA[id number] 5TECFMSCZHVKFMTWMSMAAUE6537-31-05C8 8:44:241.2.840.544176.1.72.3.15|1.2 .840.803985.1.13.104.2.7.2.727879_1 [id number] [facility] 2023-07-12 16:11:50 fQBDEF4LD5K8Gt3MZLqk QvHyf7+E1YcpGvk IarcX7q7EOvO5y/u/C8rmd57ojBSn8999-5 6:11:50 Spoke with nursing at the [facility] [phone] . They are able to do the monitors but stated that the patient has frequent moments of belligerence and pulls everything off. They do not think he will agree to wearing it.Routed to Dr Lamb for advice 67380-4Ttchwodtn encounter TvqgDH4943-71-98V48:20:14Telephone encounter NoteTXT1.2.840.634509.1.13.104.2.7. 2.941190|[id number] for patient lwfh05445-3SghtWB632891914Ydqia A Roller RN[address] Db[id number] 9OCQIZCTOPZEHZFGNBTXORZ5783-33-68F3 6:20:141.2.840.627107.1.72.3.15|1.2 .840.578549.1.13.104.2.7.2.727879_1 [id number] Elisha Navarrete RN [facility] 2023-07-12 14:43:57 CPtxdym+kqYFIE+xjsW1 TSNLhCVgZGLbSJo /zBTqDjVHHA9ip65Gu6olyFBPlPHK0622-4 4:43:57 Patient is currently in [facility]. Patient with history of atrial fibrillation along with syncopal episodes. Please reach out to the nursing completion supervisor [facility] to see if we can do 30-day event monitor. If so, we need to place the monitor. Orders placed. 01917-2Ojzclgdww encounter DovbLZ5309-41-59W59:47:03Telephone encounter NoteTXT1.2.840.227661.1.13.104.2.7. 2.032227|[id number] for patient qojv62062-5NrygFFZRJWEWKF[address] Xh[id number] 8ZJCQZBKNTMXOZLMPMYXURI5602-98-14K7 4:47:031.2.840.519902.1.72.3.15|1.2 .840.087803.1.13.104.2.7.2.727879_1 [id number] [facility] 2023-07-12 14:43:51 Sh+iX6Avl0JlMx67akOi vwIcQpPpo/KTh+0 oNFLyGyvLXVAvt7uC2WoAJDbLGspA8029-4 4:43:51 ----- Message from Naa Lamb MD sent at 06/22/2023 12:44 PM CDT -----Reach to [facility] to see if they can do a 30-day event monitor. 25266-0Pouoiapdu encounter HjgcJW1724-02-75A13:43:51Telephone encounter NoteTXT1.2.840.454919.1.13.104.2.7. 2.060216|[id number] for patient mdnb24989-8YykoCSFHMTEWIN[address] Zh[id number] 7ANJEPZRYJFKDCRCDQIXGWI5614-85-34A3 4:43:511.2.840.743579.1.72.3.15|1.2 .840.126650.1.13.104.2.7.2.727879_1 [id number] [facility]"
[2024-01-15 15:20] LABS: Absolute Basophils 0.1 K/uL (0-0.5); Absolute Eosinophils 0.1 K/uL (0-0.5); Absolute Lymphocytes (CBC) 1.4 K/uL (0.7-4.9); Absolute Monocytes 1.1 K/uL (0.1-1.3); Absolute Neutrophil 6.8 K/uL (1.8-8.0); Basophils % 0.8 % (0-1.3); Eosinophils % 0.7 % (0-4.4); Hematocrit 35.8 % (39.6-49.0); Hemoglobin 11.7 g/dL (13.6-17.9); Lymphocytes % 15.2 % (15.3-44.8); MCH 31.4 pg (27.0-35.0); MCHC 32.8 g/dL (32.0-36.0); MCV 95.8 fL (80-100); MPV 8.9 fL (7.6-11.3); Monocytes % 11.7 % (3.3-12.3); Neutrophils % 71.6 % (41.7-73.7); Platelets 339 thou/uL (152-406); RBC Red Blood Cell Count 3.74 M/uL (4.33-5.43); Red Cell Distribution Width 16.3 % (12.1-15.2)
[2024-01-15 15:22] LABS: PT Prothrombin Time 19.6 SECONDS (9.5-12.5); Protime INR 1.81
--- NOTE | 2024-01-15 15:35 | RAD REPORT ---
EXAM DESCRIPTION: RAD - Chest Single View - 01/15/2024 3:00 pm CLINICAL HISTORY: COUGH COMPARISON: Chest Single View dated 01/06/2024; Chest Single View dated 10/30/2023; Chest Single View d ated 10/27/2023; Chest Single View dated 06/02/2023 FINDINGS: Lines: None. Lungs: No evidence of edema or pneumonia. Pleural: No significant pleural effusions or pneumothorax. Cardiac: Similar prominence of the cardiopericardial silhouette. Mediastinum: Within normal limits. Bones: No acute fractures. Other: None IMPRESSION: No acute cardiopulmonary disease.
[2024-01-15 15:38] LABS: Albumin 2.3 g/dL (3.4-5.0); Albumin/Globulin Ratio 0.5 (1.1-1.8); Anion Gap 7.7 mEq/L (5.0-15.0); Bilirubin Direct 0.2 mg/dL (0-0.2); Bilirubin Indirect, Calculated 0.4 mg/dL (0.2-0.8); Bilirubin Total 0.6 mg/dL (0.2-1.0); Globulin 4.6 g/dL (2.3-3.5); Magnesium 2.2 mg/dL (1.6-2.4); Potassium 3.7 mEq/L (3.5-5.1); Protein, Total 6.9 g/dL (6.4-8.2)
--- NOTE | 2024-01-15 15:47 | RAD REPORT ---
EXAM DESCRIPTION: CT - Head Brain Wo Cont - 01/15/2024 3:33 pm CLINICAL HISTORY: MENTAL STATUS CHANGE COMPARISON: Head Brain Wo Cont dated 01/04/2024; Head Brain Wo Cont dated 10/27/2023 TECHNIQUE: All CT scans are performed using dose optimization technique as appropriate and may inclu de automated exposure control or mA/KV adjustment according to patient size. FINDINGS: No intracranial hemorrhage, hydrocephalus or extra-axial fluid collection.No areas of brai n edema or evidence of midline shift. Age advanced cerebral atrophy. Moderate chronic small vessel is chemic changes. Cavum septum pellucidum et vergae. The paranasal sinuses and mastoids are clear. The calvarium is intact. IMPRESSION: No acute intracranial abnormality.
--- NOTE | 2024-01-15 16:48 | EDPHYS ---
Physician Documentation [facility] Name: Donald Herron Age: 73 yrs Sex: Male : 1950 Arrival Date: 01/15/2024 Time: 14:41 Bed 3 Private MD: ED Physician Leopoldo Jones HPI: 01/14 16:38 This 73 yrs old Male presents to ER via EMS with complaints of Hypotension. duane 16:38 WEAK, LOW BP , DEHYDRATED. The patient presents with decreased mental status, trouble duane concentrating. Onset: The symptoms/episode began/occurred just prior to arrival, today. Possible causes: CVA or TIA, head injury, seizure, sepsis. Associated signs and symptoms: Pertinent positives: nausea, weakness. Current symptoms: In the emergency department the patient's symptoms have improved, moderately. Patient's baseline: Neuro: alert and fully oriented. Severity of symptoms: At their worst the symptoms were moderate in the emergency department the symptoms are unchanged. Historical: - Allergies: 15:23 Zofran; nj1 - PMHx: 15:23 Alzheimer's disease; Asthma; Atrial fibrillation; GERD; osteoarthritis; syncope; TIA; nj1 - PSHx: 15:23 Hip surgery (TIA); nj1 - Immunization history:: Adult Immunizations unknown. - Social history:: Smoking status: unknown. ROS: 16:40 Constitutional: Negative for fever, chills, and weight loss, Eyes: Negative for injury, duane pain, redness, and discharge, ENT: Negative for injury, pain, and discharge, Neck: Negative for injury, pain, and swelling, Cardiovascular: Negative for chest pain, palpitations, and edema, Respiratory: Negative for shortness of breath, cough, wheezing, and pleuritic chest pain, Abdomen/GI: Negative for abdominal pain, nausea, vomiting, diarrhea, and constipation, Back: Negative for injury and pain, : Negative for injury, bleeding, discharge, and swelling, Skin: Negative for injury, rash, and discoloration, Neuro: Negative for headache, weakness, numbness, tingling, and seizure, Psych: Negative for depression, anxiety, suicide ideation, homicidal ideation, and hallucinations, Allergy/Immunology: Negative for hives, rash, and allergies, Endocrine: Negative for neck swelling, polydipsia, polyuria, polyphagia, and marked weight changes, Hematologic/Lymphatic: Negative for swollen nodes, abnormal bleeding, and unusual bruising, 16:40 MS/extremity: Positive for pain, of the left hip, LEFT HEALING WELL, Exam: 16:40 Constitutional: This is a well developed, well nourished patient who is awake, alert, duane and in no acute distress. Head/Face: Normocephalic, atraumatic. Eyes: Pupils equal round and reactive to light, extra-ocular motions intact. Lids and lashes normal. Conjunctiva and sclera are non-icteric and not injected. Cornea within normal limits. Periorbital areas with no swelling, redness, or edema. Neck: Trachea midline, no thyromegaly or masses palpated, and no cervical lymphadenopathy. Supple, full range of motion without nuchal rigidity, or vertebral point tenderness. No Meningismus. Chest/axilla: Normal chest wall appearance and motion. Nontender with no deformity. No lesions are appreciated. Cardiovascular: Regular rate and rhythm with a normal S1 and S2. No gallops, murmurs, or rubs. Normal PMI, no JVD. No pulse deficits. Respiratory: Lungs have equal breath sounds bilaterally, clear to auscultation and percussion. No rales, rhonchi or wheezes noted. No increased work of breathing, no retractions or nasal flaring. Abdomen/GI: Soft, non-tender, with normal bowel sounds. No distension or tympany. No guarding or rebound. No evidence of tenderness throughout. Back: No spinal tenderness. No costovertebral tenderness. Full range of motion. Male : Normal genitalia with no discharge or lesions. Skin: Warm, dry with normal turgor. Normal color with no rashes, no lesions, and no evidence of cellulitis. MS/ Extremity: Pulses equal, no cyanosis. Neurovascular intact. Full, normal range of motion. Psych: Awake, alert, with orientation to person, place and time. Behavior, mood, and affect are within normal limits. 16:40 ENT: Mouth: Lips: dry, Oral mucosa: dry, Gums: reddened, Tongue: is elevated, abscess, is not appreciated, drooling, is not appreciated, 16:43 ECG was reviewed by the Attending Physician. [facility] Vital Signs: 14:50 BP 101 / 53; Pulse 65; Resp 19; Temp 97.6(TE); Pulse Ox 98% on R/A; Weight 72.57 kg (M);tx1 16:19 BP 112 / 73; Pulse 69; Resp 18; Pulse Ox 96% ; nj1 17:03 BP 124 / 66; Pulse 70; Resp 18; Pulse Ox 97% on R/A; tx1 18:00 BP 131 / 80; Pulse 85; Resp 18; Pulse Ox 98% ; nj1 19:31 Temp 97.3(TE); tx1 MDM: 14:44 Patient medically screened. duane 16:41 Differential Diagnosis altered mental status, sepsis, flu. Differential Diagnosis: CVA, duane electrolyte abnormality, alcohol intoxication, hypoglycemia, intracranial bleed, meningitis, pneumonia, seizure, sepsis, TIA, UTI, volume depletion. Data reviewed: vital signs, nurses notes, EMS record, lab test result(s), EKG, radiologic studies, CT scan, plain films. Consideration of Admission/Observation Patient was admitted/placed on observation. Escalation of care including admission/observation considered. I considered the following discharge prescriptions or medication management in the emergency department Medications were administered in the Emergency Department. See MAR. Test considered but Not performed: MRI: NO MRI BRAIN. Care significantly affected by the following chronic conditions: Hypertension, ALZHEIMER, ASTHMA, A FIB, OA,SYNCOPE . TIA, RECENT LEFT HIP REPAIN. 01/14 14:45 Order name: Basic Metabolic Panel; Complete Time: 16:27 duane 01/14 14:45 Order name: CBC with Diff; Complete Time: 16:27 duane 01/14 14:45 Order name: LFT's; Complete Time: 16:27 01/14 14:45 Order name: Magnesium; Complete Time: 16:27 01/14 14:45 Order name: NT PRO-BNP; Complete Time: 16:27 01/14 14:45 Order name: PT-INR; Complete Time: 16:27 01/14 14:45 Order name: Troponin HS; Complete Time: 16:27 duane 01/14 14:45 Order name: Lipase; Complete Time: 16:27 duane 01/14 14:45 Order name: Urinalysis w/ reflexes duane 01/14 16:40 Order name: Valproic Acid (depakote); Complete Time: 18:12 duane 01/14 17:35 Order name: CBC with Automated Diff EDMS 01/14 17:35 Order name: CBC with Automated Diff EDMS 01/14 17:35 Order name: Comprehensive Metabolic Panel EDTX 01/14 17:35 Order name: Comprehensive Metabolic Panel EDTX 01/14 17:35 Order name: Lipid Profile EDMS 01/14 17:35 Order name: Lipid Profile EDMS 01/14 17:35 Order name: Protime (+INR) EDMS 01/14 17:35 Order name: Protime (+INR) EDMS 01/14 17:35 Order name: PTT, Activated Partial Thromb EDMS 01/14 17:35 Order name: PTT, Activated Partial Thromb EDMS 01/14 17:35 Order name: Troponin High Sensitivity EDTX 01/14 17:35 Order name: Troponin High Sensitivity EDTX 01/14 17:35 Order name: Troponin High Sensitivity EDTX 01/14 14:45 Order name: XRAY Chest (1 view); Complete Time: 16:27 [facility] 01/14 14:45 Order name: CT Head Brain wo Cont; Complete Time: 16:27 [facility] 01/14 14:45 Order name: EKG; Complete Time: 14:45 duane 01/14 14:45 Order name: Cardiac monitoring; Complete Time: 15:13 duane 01/14 14:45 Order name: EKG - Nurse/Tech; Complete Time: 16:09 duane 01/14 14:45 Order name: IV Saline Lock; Complete Time: 15:13 duane 01/14 14:45 Order name: Labs collected and sent; Complete Time: 15:13 01/14 14:45 Order name: O2 Per Protocol; Complete Time: 15:13 01/14 14:45 Order name: O2 Sat Monitoring; Complete Time: 15:13 duane 01/14 16:37 Order name: PO challenge; Complete Time: 18:29 duane 01/14 18:13 Order name: Misc. Order: GET UA, CATH IN /OUT; Complete Time: 19:35 [facility] EC:43 Rate is 85 beats/min. Rhythm is irregularly irregular. QRS Jackson is Normal. MI interval duane is normal. QRS interval is normal. QT interval is normal. No Q waves. T waves are Normal. No ST changes noted. Clinical impression: Atrial Fibrillation and No evidence of ischemia. Interpreted by me. Reviewed by me. Administered Medications: 15:00 Drug: NS 0.9% IV 500 ml IV at bolus once Route: IV; Rate: bolus; Site: left hand; nj1 16:00 Follow up: Response: No adverse reaction; IV Status: Completed infusion; IV Intake: nj1 500ml 16:55 Drug: NS 0.9% IV 1000 ml IV at 1 bolus Per protocol; 1000 mL bolus Route: IV; Rate: 1 nj1 bolus; Site: left hand; 18:28 Follow up: IV Status: Completed infusion; IV Intake: 1000ml nj1 Disposition Summary: 01/15/24 16:48 Hospitalization Ordered Notes: Hospitalization Status: Inpatient Admission duane Provider: Azeem Harden cha Location: Telemetry/MedSurg (Inpatient) duane Condition: Fair duane Problem: new duane Symptoms: have improved duane Bed/Room Type: Standard [facility] Room Assignment: 412(01/15/24 18:57) eb Diagnosis - Dehydration duane - Hypotension, unspecified - RESOLVED duane - Chronic atrial fibrillation 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
--- NOTE | 2024-01-15 16:48 | ER ---
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 EMS reports sbp readings of 100's, initiated IVF. Had hip surgery a couple weeks ago. 14:50 Coronavirus screen: At this time, the client does not indicate any symptoms associated nj1 with coronavirus-19. Ebola Screen: Patient denies travel to an Ebola-affected area in the 21 days before illness onset. Initial Sepsis Screen: Does the patient meet any 2 criteria? No. Patient's initial sepsis screen is negative. Does the patient have a suspected source of infection? No. Patient's initial sepsis screen is negative. Risk Assessment: Do you want to hurt yourself or someone else? Patient reports no desire to harm self or others. Onset of symptoms was January 15, 2024. 14:50 Method Of Arrival: EMS: [facility] 14:50 Acuity: SALOMON 3 nj 14:50 Care prior to arrival: Medication(s) given: Normal saline infusion, 50 ml IV initiated. nj1 20 GA, in the left hand, Glucose check: 184. Historical: - Allergies: 15:23 Zofran; nj1 - PMHx: 15:23 Alzheimer's disease; Asthma; Atrial fibrillation; GERD; osteoarthritis; syncope; TIA; nj1 - PSHx: 15:23 Hip surgery (TIA); nj1 - Immunization history:: Adult Immunizations unknown. - Social history:: Smoking status: unknown. Screenin:00 [facility] ED Fall Risk Assessment (Adult) History of falling in the last 3 months, nj including since admission Yes- fall prone (multiple falls) (3 pts) Confusion or Disorientation Yes (5 pts) Intoxicated or Sedated No (0 pts) Impaired Gait Yes (1 pt) Mobility Assist Device Used Yes (1 pt) Altered Elimination Yes (1 pt) Score/Fall Risk Level 3 or more points = High Risk Oriented to surroundings, Maintained a safe environment, Hourly rounding (assess needs \T\ fall precautionary measures) done, Used ambulatory aids as needed (educated on \T\ assisted with), Offered frequent toileting (1:1 observation), Remained with patient while ambulating, Utilized family, sitter, or virtual drum printer as indicated. Abuse screen: Denies threats or abuse. Denies injuries from another. Nutritional screening: No deficits noted. Tuberculosis screening: No symptoms or risk factors identified. Assessment: 15:00 General: Appears in no apparent distress. comfortable, Behavior is calm, cooperative. nj1 Pain: Unable to use pain scale. Patient is disoriented. Difficult to understand. 15:00 Neuro: Level of Consciousness is Drowsy. Oriented to person. Cardiovascular: Patient's nj1 skin is warm and dry. Respiratory: Airway is patent Respiratory effort is even, unlabored. 16:17 Reassessment: Patient appears in no apparent distress at this time. Patient and/or nj1 family updated on plan of care and expected duration. Pain level reassessed. Reassessment: Pt has removed cardiac monitoring leads. Re-applied. Neuro: Level of Consciousness is awake, alert, obeys commands, Oriented to person. 17:04 Reassessment: Patient appears in no apparent distress at this time. Pt resting/sleeping.nj1 18:00 Reassessment: Patient appears in no apparent distress at this time. Patient and/or nj1 family updated on plan of care and expected duration. Pain level reassessed. Vital Signs: 14:50 BP 101 / 53; Pulse 65; Resp 19; Temp 97.6(TE); Pulse Ox 98% on R/A; Weight 72.57 kg (M);nj1 16:19 BP 112 / 73; Pulse 69; Resp 18; Pulse Ox 96% ; nj1 17:03 BP 124 / 66; Pulse 70; Resp 18; Pulse Ox 97% on R/A; nj1 18:00 BP 131 / 80; Pulse 85; Resp 18; Pulse Ox 98% ; nj1 19:31 Temp 97.3(TE); ut1 ED Course: 14:43 Patient arrived in ED. eb 14:44 Leopoldo Jones MD is Attending Physician. duane 14:46 Tanner, Melissa, RN is Primary Nurse. nj1 15:00 Patient has correct armband on for positive identification. Placed in gown. Bed in low nj1 position. Side rails up X2. Provided Education on: unsure if patient has understood how to use call light. Pt has been placed in front of trauma nurse station.. Client placed on continuous cardiac and pulse oximetry monitoring. NIBP monitoring applied. site monitor on. 15:02 XRAY Chest (1 view) In Process Unspecified. EDMS 15:23 Triage completed. nj1 15:25 Arm band placed on. nj1 15:34 CT Head Brain wo Cont In Process Unspecified. EDMS 15:48 EKG done, by ED staff. [email or web address] 16:47 Azeem Harden MD is Hospitalizing Provider. [facility] 18:38 Warm blanket given. [email or web address] 19:10 Report given to Katiana WU. nj1 20:41 Inserted saline lock: 20 gauge in right antecubital area, using aseptic technique. jb4 Administered Medications: 15:00 Drug: NS 0.9% IV 500 ml IV at bolus once Route: IV; Rate: bolus; Site: left hand; nj1 16:00 Follow up: Response: No adverse reaction; IV Status: Completed infusion; IV Intake: nj1 500ml 16:55 Drug: NS 0.9% IV 1000 ml IV at 1 bolus Per protocol; 1000 mL bolus Route: IV; Rate: 1 nj1 bolus; Site: left hand; 18:28 Follow up: IV Status: Completed infusion; IV Intake: 1000ml nj1 Intake: 16:00 IV: 500ml; Total: 500ml. nj1 18:28 IV: 1000ml; Total: 1500ml. nj1 Outcome: 16:48 Decision to Hospitalize by Provider. [facility] 20:50 Patient left the ED. jb4 Signatures: Dispatcher [employer] Leopoldo Amor MD MD cha Bryson, James RN RN jb4 Rupali Aguilar Norma, RN RN nj1 Carlos Bill jg11
[2024-01-15] MEDS ORDERED: NA CHLORIDE 0.9% 1,000 ML ONE (16:51)
--- NOTE | 2024-01-15 17:29 | P.HP ---
Certification for Inpatient Patient admitted to: Inpatient With expected LOS: >2 Midnights Patient will require the following post-hospital care: None Practitioner: I am a practitioner with admitting privileges, knowledge of patient current condition, hospital course, and medical plan of care. Services: Services provided to patient in accordance with Admission requirements found in Title 42 Section 412.3 of the Code of Federal Regulations Patient History Date of Service: 01/15/24 Reason for admission: Altered mental status History of Present Illness: Patient is a 73-year-old gentleman who comes in for altered mental status. Patient has a history of Alzheimer's dementia and stroke. Patient's also with a history of atrial fibrillation. Patient came into the emergency room with some hyponatremia. Patient also with uremia. Patient has metabolic alkalosis. Patient came into the ER for further evaluation. In the emergency room patient has hypoalbuminemia. Patient urine analysis is pending. Patient is a very poor historian and really does not know much that was going on with him. Patient is EKG showed chronic atrial fibrillation. Patient is on numerous medications at home we will go ahead and have nursing staff reviewed the medication list. Patient will be admitted for inpatient hospitalization. Allergies ondansetron [From Zofran] Allergy (Verified 01/06/24 23:47) Hives/Rash Home Medications: Acetaminophen with Codeine [Acetaminophen-Cod #3 Tablet] 1 tab PO Q8HP PRN Apixaban [Eliquis] 5 mg PO BID 04/17/23 Aspirin [Aspirin EC 81 MG] 81 mg PO DAILY 04/17/23 Divalproex ER [Depakote *ER] 250 mg PO BID 04/17/23 Acetaminophen [Tylenol] 650 mg PO Q6HP PRN 10/27/23 Amlodipine [Norvasc*] 10 mg PO DAILY 10/27/23 Fluticasone/Umeclidin/Vilanter [Trelegy Ellipta 200-62.5-25] 1 each IH DAILY 10/27/23 Lidocaine 4% Patch [Lidoderm 5% Patch*] 1 patch TD Q12H 10/27/23 carvediloL [Carvedilol] 6.25 mg PO BID 10/27/23 cloNIDine HCL [Clonidine HCl] 0.1 mg PO Q8HP PRN 10/27/23 Atorvastatin Calcium [Lipitor] 40 mg PO BEDTIME tab 11/03/23 Mirtazapine 7.5 mg PO BEDTIME 01/06/24 Multivitamin with Minerals [Multivitamins with Minerals] 1 each PO DAILY 01/06/24 Potassium Chloride 10 meq PO DAILY 01/06/24 - Past Medical/Surgical History Diabetic: No -: TIA -: Atrial fibrillation -: Dementia -: HTN -: HLD -: Hx DEBORAH (Dr. Whitley/ Dr. Monroy) -: cognitive communication deficit -: hypothyroidism -: GERD -: osteoarthritis -: metabolic encephalopathy Psychosocial/ Personal History: Resident of [facility] - Family History Father Family History: Reviewed- Non-Contributory - Social History Smoking Status: Former smoker Alcohol use: No CD- Drugs: No Caffeine use: No Review of Systems 10-point ROS is otherwise unremarkable Physical Examination - Vital Signs Temperature: 99 F (Reviewed) Blood Pressure: 140/80 Pulse: 80 Respirations: 18 Pulse Ox (%): 95 - Physical Exam General: Alert, In no apparent distress, Disheveled, Demented HEENT: Atraumatic, PERRLA, Mucous membr. moist/pink, EOMI, Sclerae nonicteric Neck: Supple, 2+ carotid pulse no bruit, No LAD, Without JVD or thyroid abnormality Respiratory: Diminished Cardiovascular: Regular rate/rhythm, Normal S1 S2 Gastrointestinal: Normal bowel sounds, Soft and benign, Non-distended, No tenderness Musculoskeletal: No tenderness Integumentary: No rashes Neurological: Normal speech, Normal tone, Sensation intact, Cranial nerves 3-12 intact, Abnormal gait, Abnormal strength, Abnormal affect, Dementia Lymphatics: No axilla or inguinal lymphadenopathy - Studies Laboratory Data (last 24 hrs) 01/15/24 01/15/24 01/15/24 15:09 15:09 15:09 WBC 9.50 Hgb 11.7 L Hct 35.8 L Plt Count 339 PT 19.6 H INR 1.81 Sodium 143 Potassium 3.7 BUN 31 H Creatinine 1.05 Glucose 169 H Magnesium 2.2 Total Bilirubin 0.6 AST 35 ALT 32 Alkaline Phosphatase 106 Lipase 30 Assessment & Plan - Problems (Diagnosis) (1) Altered mental status Current Visit: Yes Status: Acute (2) Dehydration Current Visit: Yes Status: Acute (3) DEBORAH (acute kidney injury) Current Visit: Yes Status: Acute (4) Alzheimer's dementia Current Visit: Yes Status: Acute (5) History of CVA (cerebrovascular accident) Current Visit: Yes Status: Acute (6) Vascular dementia Current Visit: Yes Status: Acute (7) History of atrial fibrillation Current Visit: No Status: Chronic - Plan 1. Gentle hydration 2. Panculture 3. IV antibiotic prophylactically 4. Imaging studies including CT of the brain. MRI if no abnormality 5. Monitor electrolytes 6. Check thyroid studies as well as cortisol level 7. Review medications 8. Neurochecks every 4 hours 9. GI/DVT prophylaxis Discharge Plan: Home Plan to discharge in: Greater than 2 days - Advance Directives Does patient have a Living Will: Yes Does patient have a Durable POA for Healthcare: Yes - Code Status/Comfort Care Code Status Assessed: Yes Code Status: Full Code Critical Care: No Time Spent Managing PTS Care (In Minutes): 45
[2024-01-15] MEDS ORDERED: ONDANSETRON 4 MG/2 ML VIAL IV PRN (17:30)
[2024-01-15] MEDS: NA CHLORIDE 0.9% 1,000 ML IV SCH (18:00)
[2024-01-15 20:08] LABS: Calcium Oxalate Crystals- Ur Few /HPF (None Seen); Specific Gravity 1.028 (1.005-1.030); Sqamous Epithelial None Seen /HPF (None Seen); Urine Bacteria <20 /HPF (<20); Urine Bilirubin NEGATIVE (Negative); Urine Blood Negative (Negative); Urine Clarity Extremely Turbid (Clear); Urine Color Yellow (Yellow); Urine Culture Reflex Order REFLEXED; Urine Glucose NEGATIVE (Negative); Urine Ketones 1+ (Negative); Urine Microscopic Reflex YN ORDER UMIC; Urine Mucus 4+ /HPF (None Seen); Urine Nitrite NEGATIVE (Negative); Urine Protein TRACE (Negative); Urine RBC None Seen /HPF (None Seen); Urine Urobilinogen 1+ (Normal); Urine pH 5.5 (5.0-7.0)
[2024-01-15] MEDS: JUVEN PACKET PO SCH (21:00)
[2024-01-15] MEDS: carvediloL 6.25 MG TAB PO SCH (21:00)
[2024-01-15] MEDS: MORPHINE 2 MG/ML SYR IV PRN (21:13)
[2024-01-15] MEDS: ACETAMINOPHEN 500 MG TAB PO PRN (21:32)
[2024-01-15] MEDS: HALOPERIDOL LACT 5 MG/ML INJ IM PRN (21:54)
[2024-01-16] MEDS: ATORVASTATIN 40 MG TAB PO SCH (00:01)
[2024-01-16] MEDS: DIVALPROEX ER 250 MG TAB PO SCH (00:01)
[2024-01-16] MEDS: APIXABAN 5 MG TABLET PO SCH (00:02)
[2024-01-16] MEDS: NA CHLORIDE 0.9% 1,000 ML IV SCH (00:20)
[2024-01-16 00:49] VITALS: BMI 23.5
[2024-01-16] MEDS: CEFTRIAXONE 1,000 MG in NA CHLORIDE 0.9% 50 ML IVPB SCH ×2 (01:03→12:50)
[2024-01-16 04:59] LABS: Absolute Basophils 0.1 K/uL (0-0.5); Absolute Eosinophils 0.1 K/uL (0-0.5); Absolute Lymphocytes (CBC) 1.6 K/uL (0.7-4.9); Absolute Monocytes 1.3 K/uL (0.1-1.3); Absolute Neutrophil 6.7 K/uL (1.8-8.0); Basophils % 0.6 % (0-1.3); Eosinophils % 0.8 % (0-4.4); Hematocrit 33.2 % (39.6-49.0); Hemoglobin 11.1 g/dL (13.6-17.9); MCH 31.8 pg (27.0-35.0); MCHC 33.4 g/dL (32.0-36.0); MCV 95.3 fL (80-100); MPV 8.9 fL (7.6-11.3); Monocytes % 13.5 % (3.3-12.3); Neutrophils % 69.1 % (41.7-73.7); Nucleated Red Blood Cells % 0.1 % (0-0); Platelets 343 thou/uL (152-406); RBC Red Blood Cell Count 3.48 M/uL (4.33-5.43); Red Cell Distribution Width 16.2 % (12.1-15.2)
[2024-01-16 05:25] LABS: PTT, Activated Partial Thromb 38.2 SECONDS (24.3-36.9)
[2024-01-16 05:26] LABS: PT Prothrombin Time 17.8 SECONDS (9.5-12.5); Protime INR 1.64
[2024-01-16 05:32] LABS: Thyroid Stimulating Hormone 0.642 uIU/mL (0.358-3.740)
[2024-01-16 05:33] LABS: Albumin 2.3 g/dL (3.4-5.0); Albumin/Globulin Ratio 0.6 (1.1-1.8); Anion Gap 6.3 mEq/L (5.0-15.0); Bilirubin Total 0.5 mg/dL (0.2-1.0); Potassium 3.3 mEq/L (3.5-5.1); Protein, Total 6.3 g/dL (6.4-8.2); Troponin High Sensitivity 38.9 pg/mL (<58.9)
[2024-01-16] MEDS: carvediloL 6.25 MG TAB PO SCH (07:13)
[2024-01-16] MEDS: ENSURE HIGH PROTEIN 237 ML CAN PO SCH (07:30)
[2024-01-16] MEDS: AMLODIPINE 10 MG TAB PO SCH (08:41)
[2024-01-16] MEDS ORDERED: AMLODIPINE 10 MG TAB PO SCH (09:00)
[2024-01-16 11:03] VITALS: O2SAT 96
[2024-01-16] MEDS: CEFDINIR 300 MG CAP PO SCH (15:53)
[2024-01-16 17:34] VITALS: BP 155/74
[2024-01-16 18:31] VITALS: TEMP 98.3
[2024-01-16] MEDS: MIRTAZAPINE 15 MG TAB PO SCH (19:57)
--- NOTE | 2024-01-17 14:20 | EKG ---
Test Date: 2024-01-15 Test Time: 14:46:33 Parachute Rigger: EL MEASUREMENT RESULTS: Intervals: Rate: 85 MI: QRSD: 120 QT: 414 QTc: 492 [place]: P: MI: QRS: 84 T: 75 INTERPRETIVE STATEMENTS: Atrial fibrillation Abnormal ECG Compared to ECG 01/06/2024 16:35:05 Right-axis deviation no longer present Myocardial infarct finding no longer present Electronically Signed On 01-17-24 14:14:57 CDT by Wiley Cyr
== END 2024-01-16 21:10 ==
LOC: ER 14:41 → ERHOLD 17:30 → INTOOBSV 17:30 → 4TH 19:33
PROVIDERS: ADMIT Hospitalist; ATTEND Hospitalist
DX: R41.82 Altered mental status, unspecified (principal); G30.9 Alzheimer's disease, unspecified; F01.50 Vascular dementia, unspecified severity, without behavioral disturbance, psychotic disturbance, mood disturbance, and anxiety; I48.11 Longstanding persistent atrial fibrillation; E86.0 Dehydration; N17.9 Acute kidney failure, unspecified; E87.3 Alkalosis; E88.09 Other disorders of plasma-protein metabolism, not elsewhere classified; E03.9 Hypothyroidism, unspecified; Z79.01 Long term (current) use of anticoagulants; Z86.73 Personal history of transient ischemic attack (TIA), and cerebral infarction without residual deficits; Z91.199 Patient's noncompliance with other medical treatment and regimen due to unspecified reason
CPT/HCPCS: 96361; 93005; 87040; 87088; 85025 ×2; 81001; 87086; 80048; 36415; 83735; 85610 ×2; 80061; 80076; 80164; 83605; 85730; 84443; 84484 ×3; 84439; 83690; 83540; 80053; 82533; 83880; 70450; 71045; 96360; 99285; J1630; J2270; J7030 ×3; J0696; G0378 ×4

== ENCOUNTER 2025-06-15 01:24 | Inpatient (IN) | payer OTHER ==
--- OUTSIDE RECORDS SUMMARY | 2025-06-15 01:33 | XMS REPORT | Continuity of Care Document ---
Author Name Unknown Address [address] [facility] [address] [place] [address] [facility] [place] Address [address] [facility] [place] [address] Care Team Providers Care Quality Assurance Advisor Name Role Phone PCP, PATIENT DOES NOT HAVE A Primary Care Physic marietta Unavailable ANNA RADFORD Attending Clinician Unav ailable ANNA RADFORD Attending Clinician Unav ailable ABELARDO_BAHHarrison_Issa_J Attending Clinician Unavailable NAA LAMB K.HLenore Attending Clinician UnavailNaa Tierney MD KLenoreHLenore Attending Clinician + [phone] Doctor Unassigned, Cantril Attending Clinician U [facility] [place] Attending Clinician Unavailab Em Castillo DO Attending Clinician [phone] DEE DEE ESQUIVEL Attending Clinician Unavailable Jayna Rizvi RN Attending Clinician [phone] Ileana Szymanski Attending Clinician [phone] BLAIR ERVIN Attending Clinician Unavail able BLAIR ERVIN Attending Clinician Unavail able Blair Ervin MD Attending Clinician [phone] Lab, Ang - Db Attending Clinician Unavailable PETROS JETER Attending Clinician Unavailable Regan HEATING WORKER, Zak W Attending Clinician Unavail able Darlene Alvarez RN Attending Clinician [phone] Valeriano George PROSTHETICS LAB TECHNICIAN, Nidia Attending Clinician [phone] ALICIA TALLEY Attending Clinician Unavailable Alicia Talley MD Attending Clinician [phone] DANIEL KUNZ Attending Clinician Unavailshireen Rodríguez MD, Bernardo Krause Attending Clinician [phone] Dalton Chino DO Attending Clinician [phone] Shirley VILLA, Zo Victoria Attending Clinician + Daniel Kunz MD Attending Clinician + [phone] Dick VILLA, Petar Baig Attending Clinician [phone] BERNARDO RODRÍGUEZ Attending Clinician Unavail able GC_BAHC_Todd_J Admitting Clinician Unavailable BLAIR ERVIN Admitting Clinician Unavail able DANIEL KUNZ Admitting Clinician UnavailDaniel Napier MD Admitting Clinician [phone] BERNARDO RODRÍGUEZ Admitting Clinician Unavail able Payers Payer Name Policy Type Policy Number Effective Date Expirati on Date Source MEDICARE PART A \\T\\ [id number] 2022 00:00:00 MEDICAID [facility] [id number] 2022 00:00:00 [place] [facility]inc [id number] 2022 00:00:00 [facility] PLAN-[place] - STAR[place] (MEDICAID REPLACEMENT - HMO) [id number] 2022 00:00:00 MEDICAID - [id number] - PENDING 000 Problems Condition Name Condition Details Condition Category Status Onset Date Resolution Date Last Treatment Date Treating Clinician Comments Source Altered mental status Altered Mental Status Problem Active 8-21 00:00: 00 [facility] Impaired cognition Impaired Cognition Problem Active 3-16 00:00: 00 [facility] Incontinen ce Incontinen ce Problem Active 1-10 00:00: 00 [facility] Palliative care Palliative Care Problem Active 2023-10 2-09 00:00: 00 [facility] Lipoma of back Lipoma of Back Problem Active 9-10 00:00: 00 [facility] 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 Osteoarthr itis of Hip Due to and Following Trauma Problem Active 7-08 00:00: 00 [facility] Mild major depression , single episode Mild Major Depression , Single Episode Problem Active 4-19 00:00: 00 [facility] Urinary incontinen ce Urinary Incontinen ce Problem Active 1-24 00:00: 00 [facility] At risk for falls At risk for falls Disease Active 2022-10 0-26 00:00: 00 [facility] Unspecifie d abnormalit ies of gait and mobility Unspecifie d abnormalit ies of gait and mobility Disease Active 2022-10 0-26 00:00: 00 [facility] Bilateral hearing loss Bilateral Hearing Loss Problem Active 6-29 00:00: 00 [facility] Vitamin D deficiency Vitamin D Deficiency Problem Active 4-03 00:00: 00 [facility] Nicotine dependence Nicotine Dependence Problem Active 4-03 00:00: 00 [facility] Lives in correction Lives in Usp Problem Active 2021-10 2-13 00:00: 00 [facility] [...] fibrillati on Atrial fibrillati on Disease Active 7-07 00:00: 00 [facility] DEBORAH (acute kidney injury) DEBORAH (acute kidney injury) Disease Active 7-06 00:00: 00 [facility] CVA (cerebral infarction ) CVA (cerebral infarction ) Disease Active 04-17 00:00: 00 [facility] Cerebral infarction Cerebral infarction Disease Active 03-23 00:00: 00 [facility] Slurred speech Slurred speech Disease Active 03-22 00:00: 00 [facility] 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, 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, Senile Onset Problem Active [facility] Hypertensi ve heart disease Hypertensi ve Heart Disease Problem Active [facility] Chronic obstructiv e pulmonary disease Chronic Obstructiv e Pulmonary Disease Problem Active [facility] Hyperlipid emia Hyperlipid emia Problem Active [facility] Allergies, Adverse Reactions, Alerts Allergy Name Allergy Type Status Severity Reaction(s) Onset Date Inactive Date Treating Clinician Comments Source NO KNOWN ALLERGIE S Drug Class Active [facility] Social History Social Habit Start Date Stop Date Quantity Comments Source Gender identity [facility] Sexual orientation [facility] History SDOH Alcohol Std Drinks [facility] History SDOH Alcohol Comment [facility] History SDOH Physical Activity MPS [facility] History of tobacco use Passive smoker [facility] Alcohol intake 2023-08-19 00:00:00 2023-08-19 00:00:00 1.14 /d [facility] Exposure to SARS-CoV-2 (event) 2023-01-08 00:00:00 2023-01-18 10:33:00 Not sure [facility] Cigarettes smoked current (pack per day) - Reported 2022-05-19 00:00:00 2022-05-19 00:00:00 [facility] Cigarette pack-years 2022-05-19 00:00:00 2022-05-19 00:00:00 [facility] Tobacco use and exposure 2022-05-19 00:00:00 2022-05-19 00:00:00 Smokeless tobacco non-user [facility] History of Social function 2022-04-30 00:00:00 2022-04-30 00:00:00 [facility] History SDOH Alcohol Frequency 2022-04-30 00:00:00 2022-04-30 00:00:00 5 [facility] History SDOH Alcohol Binge 2022-04-30 00:00:00 2022-04-30 00:00:00 5 [facility] History SDOH Social Connections Phone 2022-04-30 00:00:00 2022-04-30 00:00:00 5 [facility] History SDOH Social Connections Get Together 2022-04-30 00:00:00 2022-04-30 00:00:00 5 [facility] SDOH Social Connections Amish 2022-04-30 00:00:00 2022-04-30 00:00:00 1 [facility] SDOH Social Connections Membership 2022-04-30 00:00:00 2022-04-30 00:00:00 1 [facility] SDOH Social Connections Meetings 2022-04-30 00:00:00 2022-04-30 00:00:00 1 [facility] SDOH Social Connections Living 2022-04-30 00:00:00 2022-04-30 00:00:00 6 [facility] History SDOH Physical Activity DPW 2022-04-30 00:00:00 2022-04-30 00:00:00 0 [facility] History SDOH Stress 2022-04-30 00:00:00 2022-04-30 00:00:00 3 [facility] History SDOH Financial 2022-04-30 00:00:00 2022-04-30 00:00:00 1 [facility] History SDOH Food Worry 2022-04-30 00:00:00 2022-04-30 00:00:00 3 [facility] History SDOH Food Scarcity 2022-04-30 00:00:00 2022-04-30 00:00:00 3 [facility] History SDOH Transport Med 2022-04-30 00:00:00 2022-04-30 00:00:00 1 [facility] History SDOH Transport Non-Med 2022-04-30 00:00:00 2022-04-30 00:00:00 1 [facility] Sex Ass[birth year] At 1950 00:00:00 1950 00:00:00 [facility] Smoking Status Start Date Stop Date Source Light Tobacco Smoker [facility] Smokes tobacco daily 2022-05-19 00:00:00 [facility] Ex-smoker 2022-04-30 00:00:00 2022-04-30 00:00:00 [facility] Medications Ordered Medication Name Filled Medication Name Start Date Stop Date Current Medication? Ordering Clinician Indication Dosage Frequency Signature (SIG) Comments Components Source aspirin 81 mg chewable tablet 06-22 10:01: 54 Yes 81mg Take 1 tablet by mouth in the morning. [facility] divalproex 125 mg EC tablet 06-22 10:01: 54 Yes 125mg Take 1 tablet by mouth in the morning and 1 tablet in the evening. [facility] divalproex 250 mg EC tablet 06-22 10:01: 54 Yes 250mg Take 1 tablet by mouth in the morning and 1 tablet in the evening. [facility] apixaban 5 mg tablet 06-22 10:01: 54 Yes 5mg Take 1 tablet by mouth in the morning and 1 tablet in the evening. [facility] ergocalcife rol, vitamin D2, (ERGOCAL ORAL) 06-22 10:01: 54 Yes 1.25mg Take 1.25 mg by mouth in the morning. [facility] fluticasone -umeclidin- vilanter (TRELEGY ELLIPTA) 200-62.5-25 mcg DsDv 06-22 10:01: 54 Yes Inhale daily. [facility] divalproex (DEPAKOTE) 500 mg EC tablet 01-18 00:00: 00 Yes [id number] 01 500mg Take 1 tablet by mouth at bedtime. [facility] rivastigmin e tartrate 3 mg capsule 01-18 00:00: 00 Yes [id number] 01 3mg Take 1 capsule by mouth every morning and evening. [facility] rivastigmin e tartrate 1.5 mg capsule 2021-10 00:00: 00 01-18 00:00 :00 No [id number] 1.5mg Take 1 capsule by mouth every morning and evening. [facility] carvediloL 6.25 mg tablet 2021-10 12:49: 21 Yes 6.25mg Take 6.25 mg by mouth in the morning and 6.25 mg in the evening. Take with meals. [facility] carvediloL 6.25 mg tablet 2021-10 09:12: 49 Yes 6.25mg Take 6.25 mg by mouth in the morning and 6.25 mg in the evening. Take with meals. [facility] atorvastati n 40 mg tablet 2021-10 09:12: 49 Yes 40mg Take 40 mg by mouth at bedtime. [facility] carvediloL (COREG) 6.25 mg tablet 05-19 12:55: 25 Yes 6.25mg Take 6.25 mg by mouth in the morning and 6.25 mg in the evening. Take with meals. [facility] atorvastati n 40 mg tablet 05-19 12:55: 25 Yes 40mg Take 40 mg by mouth at bedtime. [facility] NaCl 0.9% (NS) bolus infusion 1,000 mL 05-02 18:15: 00 05-02 19:04 :00 No 1000mL at 999 mL/hr, 1,000 mL, IV Infusion, ONCE, 1 dose, On Wed05/02/22 at 1315, ARUNA [facility] No known medications 05-02 15:35: 06 No No known medication s [facility] ketorolac (TORADOL) tablet 10 mg 05-01 15:00: 00 05-01 15:30 :00 No 10mg 10 mg, Oral, ONCE, 1 dose, On Wed05/01/22 at 1000, Routine [facility] ketorolac (TORADOL) tablet 10 mg 05-01 14:56: 04 Yes 10mg 10 mg, Oral, Q6HPRN, Starting on Wed05/01/22 at 0956, Until Discontinu ed, Routine, Pain (scale 1-3), Pain (scale 4-6) [facility] atorvastati n (LIPITOR) tablet 40 mg 05-01 02:00: 00 Yes 40mg 40 mg, Oral, QHS, First dose on Wed04/30/22 at 2100, Until Discontinu ed, Routine [facility] heparin (porcine) injection 5,000 Units 05-01 01:00: 00 Yes 5000U 5,000 Units, Subcutaneo us, Q12H, First dose on Wed04/30/22 at 2000, Until Discontinu ed, Routine [facility] atorvastati n 40 mg tablet 05-01 00:00: 00 05-16 04:59 :00 No [id number] 40mg Take 1 tablet by mouth at bedtime for 14 days. [facility] carvediloL 6.25 mg tablet 05-01 00:00: 00 05-16 04:59 :00 No [id number] 6.25mg Take 1 tablet by mouth 2 (two) times daily with meals for 14 days. [facility] naproxen 250 mg tablet 05-01 00:00: 00 05-09 04:59 :00 No [id number] 250mg Take 1 tablet by mouth 2 (two) times daily as needed for Pain (scale 4-6) for up to 7 days. [facility] D5W IV infusion 1,000 mL 04-30 15:15: 00 04-30 14:13 :00 No 1000mL at 75 mL/hr, IV Infusion, ONCE, 1 dose, On Wed04/30/22 at 1015, Routine [facility] NaCl 0.9% (NS) bolus infusion 1,000 mL 04-30 04:15: 00 04-30 12:00 :13 No 1000mL at 100 mL/hr, 1,000 mL, IV Piggyback, CONTINUOUS , Starting on Wed04/29/22 at 2315, Until Wed04/30/22 at 0700, ARUNA [facility] carvediloL (COREG) tablet 6.25 mg 04-30 03:30: 00 Yes 6.25mg 6.25 mg, Oral, BID MEALS, First dose on Wed04/29/22 at 2230, Until Discontinu ed, Routine [facility] HEPARIN SODIUM (PORCINE) 1,000 UNIT/ML BOLUS ACS ORDER SET 04-30 03:30: 00 04-30 05:27 :00 No 60U/kg 3,810 Units (60 Units/kg ?63.5 kg), IV Push, ONCE, 1 dose, On Wed04/29/22 at 2230, ARUNA [facility] heparin 25,000 Units/250 mL (Premixed Bag) [...] Rang e, Dosing and Testing: &nbs p;[facility], [facility], AND [facility] ONLY &nbs p; - aPTT [...] ADJUST INITIAL BOLUS OR INITIAL INFUSION RATE.
[facility] acetaminoph en (TYLENOL) tablet 650 mg 04-30 01:46: 25 Yes 650mg 650 mg, Oral, Q6HPRN, Starting on Wed04/29/22 at 2046, Until Discontinu ed, Routine, Pain (scale 1-3) [facility] NaCl 0.9% (NS) bolus infusion 1,000 mL 04-29 22:48: 00 04-30 02:01 :00 No 1000mL at 999 mL/hr, 1,000 mL, IV Piggyback, ONCE, 1 dose, On Wed04/29/22 at 1800, STAT [facility] diltiazem (CARDIZEM) tablet 30 mg 04-29 22:46: 00 04-29 23:18 :00 No 30mg 30 mg, Oral, ONCE, 1 dose, On Wed04/29/22 at 1800, ARUNA [facility] diltiazem (CARDIZEM IV) injection 10 mg 04-29 22:45: 00 04-29 23:59 :00 No 10mg 10 mg, Slow IV Push, ONCE, 1 dose, On Wed04/29/22 at 1800, STAT
Fa [facility] member approving Restricted medication : DALTON CHINO [facility] aspirin chewable tablet 324 mg 04-29 22:30: 00 04-29 23:18 :00 No 324mg 324 mg, Oral, ONCE, 1 dose, On Wed04/29/22 at 1730, STAT [facility] lisinopril- hydrochloro thiazide (PRINZIDE,Z ESTORETIC) 20-25 mg per tablet 04-29 20:46: 48 04-29 00:00 :00 No 1{tbl} Take 1 Tab by mouth daily. [facility] amLODIPine (NORVASC) 5 mg tablet 04-29 20:46: 48 04-29 00:00 :00 No 5mg Take 5 mg by mouth daily. [facility] atorvastati n (LIPITOR) 20 mg tablet 04-29 20:46: 48 04-29 00:00 :00 No 20mg Take 20 mg by mouth at bedtime. [facility] clopidogrel (PLAVIX) 75 mg tablet 04-29 20:46: 48 04-29 00:00 :00 No 75mg Take 75 mg by mouth daily. [facility] acetaminoph en (TYLENOL EXTRA STRENGTH) 500 mg tablet 04-29 20:46: 48 04-29 00:00 :00 No 1000mg Take 1,000 mg by mouth every 6 (six) hours as needed for Pain. [facility] cephALEXin (KEFLEX) 500 mg capsule 04-29 20:46: 48 04-29 00:00 :00 No 500mg Take 500 mg by mouth 4 (four) times daily. [facility] NaCl 0.9% (NS) bolus infusion 1,000 mL 04-29 00:45: 00 04-29 02:00 :00 No 1000mL at 999 mL/hr, 1,000 mL, IV Infusion, ONCE, 1 dose, On Wed04/28/22 at 1945, STAT [facility] aspirin tablet 325 mg 04-28 23:45: 00 04-29 00:35 :00 No 325mg 325 mg, Oral, ONCE, 1 dose, On Wed04/28/22 at 1845, STAT [facility] diltiazem (CARDIZEM IV) injection 20 mg 04-28 23:45: 00 04-28 23:37 :00 No 20mg 20 mg, IV Push, ONCE, 1 dose, On Wed04/28/22 at 1845, STAT
Fa culty member approving Restricted medication : BERNARDO RODRÍGUEZ [facility] lisinopril- hydrochloro thiazide (PRINZIDE,Z ESTORETIC) 20-25 mg per tablet 06-28 15:32: 57 Yes 1{tbl} Take 1 Tab by mouth daily. [facility] amLODIPine (NORVASC) 5 mg tablet 06-28 15:32: 57 Yes 5mg Take 5 mg by mouth daily. [facility] atorvastati n (LIPITOR) 20 mg tablet 06-28 15:32: 57 Yes 20mg Take 20 mg by mouth at bedtime. [facility] clopidogrel (PLAVIX) 75 mg tablet 06-28 15:32: 57 Yes 75mg Take 75 mg by mouth daily. [facility] acetaminoph en (TYLENOL EXTRA STRENGTH) 500 mg tablet 06-28 15:32: 57 Yes 1000mg Take 1,000 mg by mouth every 6 (six) hours as needed for Pain. [facility] cephALEXin (KEFLEX) 500 mg capsule 06-28 15:32: 57 Yes 500mg Take 500 mg by mouth 4 (four) times daily. [facility] amlodipine 10 mg tablet Take 1 tablet every day by oral route. amlodipine 10 mg tablet Take 1 tablet every day by oral route. No amlodipine 10 mg tablet Take 1 tablet every day by oral route. [facility] aspirin 81 mg tablet,dillan yed release Take 1 tablet every day by oral route. aspirin 81 mg tablet,dillan yed release Take 1 tablet every day by oral route. No 1 Q1D aspirin 81 mg tablet,del ayed release Take 1 tablet every day by oral route. [facility] atorvastati n 40 mg tablet Take 1 tablet every day by oral route. atorvastati n 40 mg tablet Take 1 tablet every day by oral route. No atorvastat in 40 mg tablet Take 1 tablet every day by oral route. [facility] carvedilol 6.25 mg tablet Take 1 tablet twice a day by oral route. carvedilol 6.25 mg tablet Take 1 tablet twice a day by oral route. No carvedilol 6.25 mg tablet Take 1 tablet twice a day by oral route. [facility] diclofenac 1 % topical gel APPLY [...] nebulizati on route as needed. [facility] lidocaine 5 % topical patch lidocaine 5 % topical patch No lidocaine 5 % topical patch [facility] potassium chloride ER 10 mEq tablet,exte nded release(par t/cryst) Take 1 tablet every day by oral route for 14 days. potassium chloride ER 10 mEq tablet,exte nded release(par t/cryst) Take 1 tablet every day by oral route for 14 days. No 1 Q1D potassium chloride ER 10 mEq tablet,ext ended release(pa rt/cryst) Take 1 tablet every day by oral route for 14 days. [facility] Trelegy Ellipta 200 mcg-62.5 mcg-25 [...] inhalation route for 30 days. [facility] mirtazapine 15 mg tablet Take 1 tablet every day by oral route. mirtazapine 15 mg tablet Take 1 tablet every day by oral route. No 1 Q1D mirtazapin e 15 mg tablet Take 1 tablet every day by oral route. [facility] clonidine HCl 0.1 mg tablet clonidine HCl 0.1 mg tablet No clonidine HCl 0.1 mg tablet [facility] cholecalcif marlee (vitamin D3) 1,250 mcg [...] week by oral route for 90 days. [facility] ergocalcife rol (vitamin D2) 1,250 mcg (50,000 unit) capsule ergocalcife rol (vitamin D2) 1,250 mcg (50,000 unit) capsule No ergocalcif marlee (vitamin D2) 1,250 mcg (50,000 unit) capsule [facility] divalproex 125 mg capsule,del ayed release sprinkle Take 3 capsules twice a day by oral route. divalproex 125 mg capsule,del ayed release sprinkle Take 3 capsules twice a day by oral route. No divalproex 125 mg capsule,de layed release sprinkle Take 3 capsules twice a day by oral route. [facility] Immunizations Ordered Immunization Name Filled Immunization Name Date Status Comments Source SARS-COV-2 COVID-19 PFIZER VACCINE 2020-12-29 00:00:00 Completed [facility] SARS-COV-2 COVID-19 PFIZER VACCINE 2020-12-29 00:00:00 Completed [facility] SARS-COV-2 COVID-19 PFIZER VACCINE 2020-12-29 00:00:00 Completed [facility] SARS-COV-2 COVID-19 PFIZER VACCINE 2020-12-29 00:00:00 Completed [facility] SARS-COV-2 COVID-19 PFIZER VACCINE 2020-12-29 00:00:00 Completed [facility] SARS-COV-2 COVID-19 PFIZER VACCINE 2020-12-29 00:00:00 Completed [facility] SARS-COV-2 COVID-19 PFIZER VACCINE 2020-12-29 00:00:00 Completed [facility] SARS-COV-2 COVID-19 PFIZER VACCINE 2020-12-29 00:00:00 Completed [facility] SARS-COV-2 COVID-19 PFIZER VACCINE 2020-12-29 00:00:00 Completed [facility] SARS-COV-2 COVID-19 PFIZER VACCINE 2020-12-29 00:00:00 Completed [facility] SARS-COV-2 COVID-19 PFIZER VACCINE 2020-12-29 00:00:00 Completed [facility] SARS-COV-2 COVID-19 PFIZER VACCINE 2020-12-29 00:00:00 Completed [facility] SARS-COV-2 COVID-19 PFIZER VACCINE 2020-12-29 00:00:00 Completed [facility] SARS-COV-2 COVID-19 PFIZER VACCINE 2020-12-29 00:00:00 Completed [facility] SARS-COV-2 COVID-19 PFIZER VACCINE 2020-12-29 00:00:00 Completed [facility] SARS-COV-2 COVID-19 PFIZER VACCINE 2020-12-29 00:00:00 Completed [facility] SARS-COV-2 COVID-19 PFIZER VACCINE 2020-12-29 00:00:00 Completed [facility] SARS-COV-2 COVID-19 PFIZER VACCINE 2020-12-29 00:00:00 Completed [facility] SARS-COV-2 COVID-19 PFIZER VACCINE 2020-12-29 00:00:00 Completed [facility] SARS-COV-2 COVID-19 PFIZER VACCINE 2020-12-29 00:00:00 Completed [facility] SARS-COV-2 COVID-19 PFIZER VACCINE 2020-12-29 00:00:00 Completed [facility] SARS-COV-2 COVID-19 PFIZER VACCINE 2020-12-29 00:00:00 Completed [facility] SARS-COV-2 COVID-19 PFIZER VACCINE 2020-12-29 00:00:00 Completed [facility] SARS-COV-2 COVID-19 PFIZER VACCINE 2020-12-29 00:00:00 Completed [facility] SARS-COV-2 COVID-19 PFIZER VACCINE 2020-12-29 00:00:00 Completed [facility] SARS-COV-2 COVID-19 PFIZER VACCINE 2020-12-29 00:00:00 Completed [facility] SARS-COV-2 COVID-19 PFIZER VACCINE 2020-12-29 00:00:00 Completed [facility] SARS-COV-2 COVID-19 PFIZER VACCINE 2020-12-29 00:00:00 Completed [facility] SARS-COV-2 COVID-19 PFIZER VACCINE 2020-12-29 00:00:00 Completed [facility] SARS-COV-2 COVID-19 PFIZER VACCINE 2020-12-29 00:00:00 Completed [facility] SARS-COV-2 COVID-19 PFIZER VACCINE 2020-12-29 00:00:00 Completed [facility] SARS-COV-2 COVID-19 PFIZER VACCINE 2020-12-29 00:00:00 Completed [facility] SARS-COV-2 COVID-19 PFIZER VACCINE 2020-12-29 00:00:00 Completed [facility] SARS-COV-2 COVID-19 PFIZER VACCINE 2020-12-29 00:00:00 Completed [facility] SARS-COV-2 COVID-19 PFIZER VACCINE 2020-12-29 00:00:00 Completed [facility] SARS-COV-2 COVID-19 PFIZER VACCINE 2020-12-29 00:00:00 Completed [facility] SARS-COV-2 COVID-19 PFIZER VACCINE 2020-12-29 00:00:00 Completed [facility] SARS-COV-2 COVID-19 PFIZER VACCINE 2020-12-07 00:00:00 Completed [facility] SARS-COV-2 COVID-19 PFIZER VACCINE 2020-12-07 00:00:00 Completed [facility] SARS-COV-2 COVID-19 PFIZER VACCINE 2020-12-07 00:00:00 Completed [facility] SARS-COV-2 COVID-19 PFIZER VACCINE 2020-12-07 00:00:00 Completed [facility] SARS-COV-2 COVID-19 PFIZER VACCINE 2020-12-07 00:00:00 Completed [facility] SARS-COV-2 COVID-19 PFIZER VACCINE 2020-12-07 00:00:00 Completed [facility] SARS-COV-2 COVID-19 PFIZER VACCINE 2020-12-07 00:00:00 Completed [facility] SARS-COV-2 COVID-19 PFIZER VACCINE 2020-12-07 00:00:00 Completed [facility] SARS-COV-2 COVID-19 PFIZER VACCINE 2020-12-07 00:00:00 Completed [facility] SARS-COV-2 COVID-19 PFIZER VACCINE 2020-12-07 00:00:00 Completed [facility] SARS-COV-2 COVID-19 PFIZER VACCINE 2020-12-07 00:00:00 Completed [facility] SARS-COV-2 COVID-19 PFIZER VACCINE 2020-12-07 00:00:00 Completed [facility] SARS-COV-2 COVID-19 PFIZER VACCINE 2020-12-07 00:00:00 Completed [facility] SARS-COV-2 COVID-19 PFIZER VACCINE 2020-12-07 00:00:00 Completed [facility] SARS-COV-2 COVID-19 PFIZER VACCINE 2020-12-07 00:00:00 Completed [facility] SARS-COV-2 COVID-19 PFIZER VACCINE 2020-12-07 00:00:00 Completed [facility] SARS-COV-2 COVID-19 PFIZER VACCINE 2020-12-07 00:00:00 Completed [facility] SARS-COV-2 COVID-19 PFIZER VACCINE 2020-12-07 00:00:00 Completed [facility] SARS-COV-2 COVID-19 PFIZER VACCINE 2020-12-07 00:00:00 Completed [facility] SARS-COV-2 COVID-19 PFIZER VACCINE 2020-12-07 00:00:00 Completed [facility] SARS-COV-2 COVID-19 PFIZER VACCINE 2020-12-07 00:00:00 Completed [facility] SARS-COV-2 COVID-19 PFIZER VACCINE 2020-12-07 00:00:00 Completed [facility] SARS-COV-2 COVID-19 PFIZER VACCINE 2020-12-07 00:00:00 Completed [facility] SARS-COV-2 COVID-19 PFIZER VACCINE 2020-12-07 00:00:00 Completed [facility] SARS-COV-2 COVID-19 PFIZER VACCINE 2020-12-07 00:00:00 Completed [facility] SARS-COV-2 COVID-19 PFIZER VACCINE 2020-12-07 00:00:00 Completed [facility] SARS-COV-2 COVID-19 PFIZER VACCINE 2020-12-07 00:00:00 Completed [facility] SARS-COV-2 COVID-19 PFIZER VACCINE 2020-12-07 00:00:00 Completed [facility] SARS-COV-2 COVID-19 PFIZER VACCINE 2020-12-07 00:00:00 Completed [facility] SARS-COV-2 COVID-19 PFIZER VACCINE 2020-12-07 00:00:00 Completed [facility] SARS-COV-2 COVID-19 PFIZER VACCINE 2020-12-07 00:00:00 Completed [facility] SARS-COV-2 COVID-19 PFIZER VACCINE 2020-12-07 00:00:00 Completed [facility] SARS-COV-2 COVID-19 PFIZER VACCINE 2020-12-07 00:00:00 Completed [facility] SARS-COV-2 COVID-19 PFIZER VACCINE 2020-12-07 00:00:00 Completed [facility] SARS-COV-2 COVID-19 PFIZER VACCINE 2020-12-07 00:00:00 Completed [facility] SARS-COV-2 COVID-19 PFIZER VACCINE 2020-12-07 00:00:00 Completed [facility] SARS-COV-2 COVID-19 PFIZER VACCINE 2020-12-07 00:00:00 Completed [facility] influenza nasal, unspecified formulation influenza nasal, unspecified formulation Unknown Completed [facility] Tdap Tdap Unknown Completed [facility] ical pneumococcal polysaccharide PPV23 pneumococcal polysaccharide PPV23 Unknown Completed [facility] influenza, unspecified formulation influenza, unspecified formulation Unknown Completed [facility] COVID-19, mRNA, LNP-S, PF, 30 mcg/0.3 mL dose ([employer]) COVID-19, mRNA, LNP-S, PF, 30 mcg/0.3 mL dose ([employer]) Unknown Completed [facility] Pneumococcal conjugate PCV20, polysaccharide [id number] conjugate, adjuvant, PF Pneumococcal conjugate PCV20, polysaccharide [id number] conjugate, adjuvant, PF Unknown Completed [facility] SARS-COV-2 COVID-19 PFIZER VACCINE Unknown Completed [facility] SARS-COV-2 COVID-19 PFIZER VACCINE Unknown Completed [facility] SARS-COV-2 COVID-19 PFIZER VACCINE Unknown Completed [facility] Vital Signs Vital Name Observation Time Observation Value Comments S ource Body Weight 2025-06-13 00:00:00 2675.2 [oz_av] [facility] BP Diastolic 2025-06-13 00:00:00 72 mm[Hg] [facility] BMI (Body Mass Index) 2025-06-13 00:00:00 24.7 kg/m2 [facility] BP Systolic 2025-06-13 00:00:00 111 mm[Hg] [facility] Height 2025-06-13 00:00:00 69 [in_i] [facility] Height 2025-05-02 00:00:00 69 [in_i] [facility] BP Diastolic 2025-05-02 00:00:00 65 mm[Hg] [facility] BP Systolic 2025-05-02 00:00:00 118 mm[Hg] [facility] BMI (Body Mass Index) 2025-05-02 00:00:00 24.6 kg/m2 [facility] Body Weight 2025-05-02 00:00:00 2662 [oz_av] [facility] Height 2025-04-05 00:00:00 69 [in_i] [facility] BP Systolic 2025-04-05 00:00:00 136 mm[Hg] [facility] BMI (Body Mass Index) 2025-04-05 00:00:00 24.8 kg/m2 [facility] BP Diastolic 2025-04-05 00:00:00 76 mm[Hg] [facility] Body Weight 2025-04-05 00:00:00 2688 [oz_av] [facility] Body Weight 2025-04-04 00:00:00 2688 [oz_av] [facility] BP Diastolic 2025-04-04 00:00:00 83 mm[Hg] [facility] Height 2025-04-04 00:00:00 69 [in_i] [facility] BP Systolic 2025-04-04 00:00:00 139 mm[Hg] [facility] BMI (Body Mass Index) 2025-04-04 00:00:00 24.8 kg/m2 [facility] Body Weight 2025-03-02 00:00:00 2674 [oz_av] [facility] BP Diastolic 2025-03-02 00:00:00 78 mm[Hg] [facility] Height 2025-03-02 00:00:00 69 [in_i] [facility] BMI (Body Mass Index) 2025-03-02 00:00:00 24.7 kg/m2 [facility] BP Systolic 2025-03-02 00:00:00 122 mm[Hg] [facility] Height 2025-02-01 00:00:00 69 [in_i] [facility] BMI (Body Mass Index) 2025-02-01 00:00:00 24.4 kg/m2 [facility] Body Weight 2025-02-01 00:00:00 2643.2 [oz_av] [facility] BP Systolic 2025-02-01 00:00:00 125 mm[Hg] [facility] BP Diastolic 2025-02-01 00:00:00 76 mm[Hg] [facility] Height 2025-01-26 00:00:00 69 [in_i] [facility] BP Systolic 2025-01-26 00:00:00 138 mm[Hg] [facility] BP Diastolic 2025-01-26 00:00:00 74 mm[Hg] [facility] BMI (Body Mass Index) 2025-01-26 00:00:00 24.4 kg/m2 [facility] Body Weight 2025-01-26 00:00:00 2642 [oz_av] [facility] BP Diastolic 2024-12-25 00:00:00 82 mm[Hg] [facility] BP Systolic 2024-12-25 00:00:00 131 mm[Hg] [facility] Body Weight 2024-12-25 00:00:00 2608 [oz_av] [facility] Height 2024-12-25 00:00:00 69 [in_i] [facility] BMI (Body Mass Index) 2024-12-25 00:00:00 24.1 kg/m2 [facility] BMI (Body Mass Index) 2024-12-22 00:00:00 24.8 kg/m2 [facility] BP Diastolic 2024-12-22 00:00:00 75 mm[Hg] [facility] Height 2024-12-22 00:00:00 69 [in_i] [facility] Body Weight 2024-12-22 00:00:00 2690 [oz_av] [facility] BP Systolic 2024-12-22 00:00:00 131 mm[Hg] [facility] BMI (Body Mass Index) 2024-12-15 00:00:00 24.8 kg/m2 [facility] Height 2024-12-15 00:00:00 69 [in_i] [facility] Body Weight 2024-12-15 00:00:00 2690 [oz_av] [facility] BP Systolic 2024-12-15 00:00:00 135 mm[Hg] [facility] BP Diastolic 2024-12-15 00:00:00 74 mm[Hg] [facility] BMI (Body Mass Index) 2024-12-01 00:00:00 24.8 kg/m2 [facility] BP Diastolic 2024-12-01 00:00:00 75 mm[Hg] [facility] Body Weight 2024-12-01 00:00:00 2690 [oz_av] [facility] BP Systolic 2024-12-01 00:00:00 129 mm[Hg] [facility] Height 2024-12-01 00:00:00 69 [in_i] [facility] Height 2024-11-27 00:00:00 69 [in_i] [facility] BP Diastolic 2024-11-27 00:00:00 76 mm[Hg] [facility] BMI (Body Mass Index) 2024-11-27 00:00:00 24.8 kg/m2 [facility] Body Weight 2024-11-27 00:00:00 2690 [oz_av] [facility] BP Systolic 2024-11-27 00:00:00 134 mm[Hg] [facility] Body Weight 2024-11-16 00:00:00 2675 [oz_av] [facility] BP Diastolic 2024-11-16 00:00:00 77 mm[Hg] [facility] BMI (Body Mass Index) 2024-11-16 00:00:00 24.7 kg/m2 [facility] BP Systolic 2024-11-16 00:00:00 132 mm[Hg] [facility] Height 2024-11-16 00:00:00 69 [in_i] [facility] BMI (Body Mass Index) 2024-11-03 00:00:00 24.7 kg/m2 [facility] BP Diastolic 2024-11-03 00:00:00 71 mm[Hg] [facility] BP Systolic 2024-11-03 00:00:00 125 mm[Hg] [facility] Body Weight 2024-11-03 00:00:00 2675 [oz_av] [facility] Height 2024-11-03 00:00:00 69 [in_i] [facility] BP Systolic 2024-10-03 00:00:00 127 mm[Hg] [facility] BMI (Body Mass Index) 2024-10-03 00:00:00 23.9 kg/m2 [facility] Height 2024-10-03 00:00:00 69 [in_i] [facility] Body Weight 2024-10-03 00:00:00 2594 [oz_av] [facility] BP Diastolic 2024-10-03 00:00:00 64 mm[Hg] [facility] Height 2024-09-15 00:00:00 69 [in_i] [facility] BP Systolic 2024-09-15 00:00:00 135 mm[Hg] [facility] BMI (Body Mass Index) 2024-09-15 00:00:00 22.5 kg/m2 [facility] Body Weight 2024-09-15 00:00:00 2434 [oz_av] [facility] BP Diastolic 2024-09-15 00:00:00 60 mm[Hg] [facility] BMI (Body Mass Index) 2024-09-14 00:00:00 22.5 kg/m2 [facility] BP Systolic 2024-09-14 00:00:00 92 mm[Hg] [facility] Height 2024-09-14 00:00:00 69 [in_i] [facility] Body Weight 2024-09-14 00:00:00 2434 [oz_av] [facility] BP Diastolic 2024-09-14 00:00:00 58 mm[Hg] [facility] BP Systolic 2024-09-04 00:00:00 120 mm[Hg] [facility] BMI (Body Mass Index) 2024-09-04 00:00:00 22.5 kg/m2 [facility] Body Weight 2024-09-04 00:00:00 2434 [oz_av] [facility] BP Diastolic 2024-09-04 00:00:00 85 mm[Hg] [facility] Height 2024-09-04 00:00:00 69 [in_i] [facility] Height 2024-08-02 00:00:00 69 [in_i] [facility] BMI (Body Mass Index) 2024-08-02 00:00:00 22.4 kg/m2 [facility] BP Systolic 2024-08-02 00:00:00 138 mm[Hg] [facility] Body Weight 2024-08-02 00:00:00 2432 [oz_av] [facility] BP Diastolic 2024-08-02 00:00:00 74 mm[Hg] [facility] BP Systolic 2024-07-13 00:00:00 134 mm[Hg] [facility] Body Weight 2024-07-13 00:00:00 2432 [oz_av] [facility] BMI (Body Mass Index) 2024-07-13 00:00:00 22.4 kg/m2 [facility] BP Diastolic 2024-07-13 00:00:00 94 mm[Hg] [facility] Height 2024-07-13 00:00:00 69 [in_i] [facility] BP Systolic 2024-07-04 00:00:00 128 mm[Hg] [facility] BMI (Body Mass Index) 2024-07-04 00:00:00 22.6 kg/m2 [facility] Height 2024-07-04 00:00:00 69 [in_i] [facility] BP Diastolic 2024-07-04 00:00:00 69 mm[Hg] [facility] Body Weight 2024-07-04 00:00:00 2448 [oz_av] [facility] Height 2024-06-07 00:00:00 69 [in_i] [facility] Body Weight 2024-06-07 00:00:00 2448 [oz_av] [facility] BP Systolic 2024-06-07 00:00:00 131 mm[Hg] [facility] BP Diastolic 2024-06-07 00:00:00 70 mm[Hg] [facility] BMI (Body Mass Index) 2024-06-07 00:00:00 22.6 kg/m2 [facility] BP Systolic 2024-05-22 00:00:00 115 mm[Hg] [facility] BP Diastolic 2024-05-22 00:00:00 74 mm[Hg] [facility] Body Weight 2024-05-22 00:00:00 2464 [oz_av] [facility] Height 2024-05-22 00:00:00 69 [in_i] [facility] BMI (Body Mass Index) 2024-05-22 00:00:00 22.7 kg/m2 [facility] BP Systolic 2024-05-11 00:00:00 152 mm[Hg] [facility] BP Diastolic 2024-05-11 00:00:00 84 mm[Hg] [facility] Body Weight 2024-05-11 00:00:00 2464 [oz_av] [facility] Height 2024-05-11 00:00:00 69 [in_i] [facility] BMI (Body Mass Index) 2024-05-11 00:00:00 22.7 kg/m2 [facility] BP Diastolic 2024-04-28 00:00:00 80 mm[Hg] [facility] BMI (Body Mass Index) 2024-04-28 00:00:00 22.9 kg/m2 [facility] BP Systolic 2024-04-28 00:00:00 124 mm[Hg] [facility] Height 2024-04-28 00:00:00 69 [in_i] [facility] Body Weight 2024-04-28 00:00:00 2480 [oz_av] [facility] BP Systolic 2024-04-17 00:00:00 118 mm[Hg] [facility] Height 2024-04-17 00:00:00 69 [in_i] [facility] BMI (Body Mass Index) 2024-04-17 00:00:00 22.9 kg/m2 [facility] BP Diastolic 2024-04-17 00:00:00 73 mm[Hg] [facility] Body Weight 2024-04-17 00:00:00 2480 [oz_av] [facility] BP Systolic 2024-04-04 00:00:00 108 mm[Hg] [facility] Body Weight 2024-04-04 00:00:00 2480 [oz_av] [facility] Height 2024-04-04 00:00:00 69 [in_i] [facility] BMI (Body Mass Index) 2024-04-04 00:00:00 22.9 kg/m2 [facility] BP Diastolic 2024-04-04 00:00:00 68 mm[Hg] [facility] BMI (Body Mass Index) 2024-03-24 00:00:00 22.7 kg/m2 [facility] Height 2024-03-24 00:00:00 69 [in_i] [facility] BP Diastolic 2024-03-24 00:00:00 78 mm[Hg] [facility] Body Weight 2024-03-24 00:00:00 2464 [oz_av] [facility] BP Systolic 2024-03-24 00:00:00 130 mm[Hg] [facility] Body Weight 2024-03-22 00:00:00 2464 [oz_av] [facility] BMI (Body Mass Index) 2024-03-22 00:00:00 22.7 kg/m2 [facility] Height 2024-03-22 00:00:00 69 [in_i] [facility] BP Diastolic 2024-03-22 00:00:00 60 mm[Hg] [facility] BP Systolic 2024-03-22 00:00:00 121 mm[Hg] [facility] Body Weight 2024-03-16 00:00:00 2480 [oz_av] [facility] BP Systolic 2024-03-16 00:00:00 124 mm[Hg] [facility] Height 2024-03-16 00:00:00 69 [in_i] [facility] BP Diastolic 2024-03-16 00:00:00 72 mm[Hg] [facility] BMI (Body Mass Index) 2024-03-16 00:00:00 22.9 kg/m2 [facility] Height 2024-03-15 00:00:00 69 [in_i] [facility] BP Systolic 2024-03-15 00:00:00 117 mm[Hg] [facility] BP Diastolic 2024-03-15 00:00:00 66 mm[Hg] [facility] Body Weight 2024-03-15 00:00:00 2479.84 [oz_av] [facility] BMI (Body Mass Index) 2024-03-15 00:00:00 22.9 kg/m2 [facility] BP Diastolic 2024-02-18 00:00:00 75 mm[Hg] [facility] Height 2024-02-18 00:00:00 69 [in_i] [facility] BMI (Body Mass Index) 2024-02-18 00:00:00 23 kg/m2 [facility] Body Weight 2024-02-18 00:00:00 2496 [oz_av] [facility] BP Systolic 2024-02-18 00:00:00 119 mm[Hg] [facility] Height 2024-02-11 00:00:00 69 [in_i] [facility] BP Systolic 2024-02-11 00:00:00 115 mm[Hg] [facility] BP Diastolic 2024-02-11 00:00:00 80 mm[Hg] [facility] BMI (Body Mass Index) 2024-02-11 00:00:00 23 kg/m2 [facility] Body Weight 2024-02-11 00:00:00 2496 [oz_av] [facility] Body Weight 2024-02-04 00:00:00 2496 [oz_av] [facility] BMI (Body Mass Index) 2024-02-04 00:00:00 23 kg/m2 [facility] BP Diastolic 2024-02-04 00:00:00 80 mm[Hg] [facility] BP Systolic 2024-02-04 00:00:00 131 mm[Hg] [facility] Height 2024-02-04 00:00:00 69 [in_i] [facility] Body Weight 2024-01-28 00:00:00 2496 [oz_av] [facility] BMI (Body Mass Index) 2024-01-28 00:00:00 23 kg/m2 [facility] BP Diastolic 2024-01-28 00:00:00 78 mm[Hg] [facility] BP Systolic 2024-01-28 00:00:00 128 mm[Hg] [facility] Height 2024-01-28 00:00:00 69 [in_i] [facility] Body Weight 2024-01-24 00:00:00 2533 [oz_av] [facility] BP Systolic 2024-01-24 00:00:00 132 mm[Hg] [facility] Height 2024-01-24 00:00:00 69 [in_i] [facility] BP Diastolic 2024-01-24 00:00:00 78 mm[Hg] [facility] BMI (Body Mass Index) 2024-01-24 00:00:00 23.4 kg/m2 [facility] BMI (Body Mass Index) 2024-01-21 00:00:00 23.4 kg/m2 [facility] BP Diastolic 2024-01-21 00:00:00 83 mm[Hg] [facility] Height 2024-01-21 00:00:00 69 [in_i] [facility] Body Weight 2024-01-21 00:00:00 2533 [oz_av] [facility] BP Systolic 2024-01-21 00:00:00 136 mm[Hg] [facility] BP Systolic 2024-01-20 00:00:00 122 mm[Hg] [facility] Height 2024-01-20 00:00:00 69 [in_i] [facility] Body Weight 2024-01-20 00:00:00 2533 [oz_av] [facility] BP Diastolic 2024-01-20 00:00:00 87 mm[Hg] [facility] BMI (Body Mass Index) 2024-01-20 00:00:00 23.4 kg/m2 [facility] Height 2024-01-17 00:00:00 69 [in_i] [facility] Body Weight 2024-01-17 00:00:00 2533 [oz_av] [facility] BMI (Body Mass Index) 2024-01-17 00:00:00 23.4 kg/m2 [facility] BP Diastolic 2024-01-17 00:00:00 82 mm[Hg] [facility] BP Systolic 2024-01-17 00:00:00 130 mm[Hg] [facility] BP Diastolic 2023-12-14 00:00:00 84 mm[Hg] [facility] [...] Systolic blood pressure 2023-08-19 17:11:00 102 mm[Hg] [place] [facility] Diastolic blood pressure 2023-08-19 17:11:00 73 mm[Hg] [facility] Heart rate 2023-08-19 17:11:00 80 /min [facility] Respiratory rate 2023-08-19 17:11:00 16 /min [facility] Body weight 2023-08-19 17:11:00 79.379 kg [facility] BMI 2023-08-19 17:11:00 25.84 kg/m2 [facility] Oxygen saturation in Arterial blood by Pulse oximetry 2023-08-19 17:11:00 94 /min [facility] Systolic blood pressure 2023-06-22 14:55:00 154 mm[Hg] [facility] Diastolic blood pressure 2023-06-22 14:55:00 78 mm[Hg] [facility] Heart rate 2023-06-22 14:55:00 82 /min [facility] Body temperature 2023-06-22 14:50:00 36.28 [facility] Respiratory rate 2023-06-22 14:50:00 18 /min [facility] Body weight 2023-06-22 14:50:00 79.425 kg [facility] BMI 2023-06-22 14:50:00 25.86 kg/m2 [facility] Oxygen saturation in Arterial blood by Pulse oximetry 2023-06-22 14:50:00 95 /min [facility] Systolic blood pressure 2023-05-08 21:34:00 130 mm[Hg] [facility] Diastolic blood pressure 2023-05-08 21:34:00 90 mm[Hg] [facility] Heart rate 2023-05-08 21:34:00 62 /min [facility] Body temperature 2023-05-08 21:34:00 36.11 [facility] Respiratory rate 2023-05-08 21:34:00 28 /min [facility] Body height 2023-05-08 21:34:00 175.3 cm [facility] Body weight 2023-05-08 21:34:00 81.647 kg [facility] BMI 2023-05-08 21:34:00 26.58 kg/m2 [facility] Oxygen saturation in Arterial blood by Pulse oximetry 2023-05-08 21:34:00 98 /min [facility] BP Diastolic 2023-02-05 00:00:00 61 [...] Systolic blood pressure 2023-01-18 16:37:00 158 mm[Hg] [facility] Diastolic blood pressure 2023-01-18 16:37:00 92 mm[Hg] [facility] Heart rate 2023-01-18 16:37:00 90 /min [facility] Systolic blood pressure 2023-01-18 15:47:00 155 mm[Hg] [facility] Diastolic blood pressure 2023-01-18 15:47:00 109 mm[Hg] [facility] Heart rate 2023-01-18 15:45:00 103 /[facility] Body height 2023-01-18 15:45:00 175.3 cm [facility] Body weight 2023-01-18 15:45:00 78.835 kg [facility] BMI 2023-01-18 15:45:00 25.67 kg/m2 [facility] BP Diastolic 2022-12-29 00:00:00 75 mm[Hg] [facility] [...] Systolic blood pressure 2022-09-25 21:32:00 150 mm[Hg] [facility] Diastolic blood pressure 2022-09-25 21:32:00 92 mm[Hg] [facility] Body height 2022-09-25 15:49:00 175.3 cm [facility] Body Weight 2022-09-22 00:00:00 2688 [oz_av] Pr [...] Systolic blood pressure 2022-09-10 18:52:00 132 mm[Hg] [facility] Diastolic blood pressure 2022-09-10 18:52:00 77 mm[Hg] [facility] Heart rate 2022-09-10 18:46:00 75 /min [facility] Respiratory rate 2022-09-10 18:46:00 20 /min [facility] Body height 2022-09-10 18:46:00 175.3 cm [facility] Body weight 2022-09-10 18:46:00 78.835 kg [facility] BMI 2022-09-10 18:46:00 25.67 kg/m2 [facility] Oxygen saturation in Arterial blood by Pulse oximetry 2022-09-10 18:46:00 97 /min [facility] BP Diastolic 2022-09-08 00:00:00 79 mm[Hg] [facility] Height 2022-09-08 00:00:00 69 [in_i] [facility] BMI (Body Mass Index) 2022-09-08 00:00:00 24.7 kg/m2 [facility] BP Systolic 2022-09-08 00:00:00 136 mm[Hg] [facility] Body Weight 2022-09-08 00:00:00 2672 [oz_av] [facility] Systolic blood pressure 2022-08-21 14:30:00 162 mm[Hg] [facility] Diastolic blood pressure 2022-08-21 14:30:00 106 mm[Hg] [facility] Heart rate 2022-08-21 14:30:00 65 /min [facility] Body weight 2022-08-21 14:17:00 74.844 kg [facility] BMI 2022-08-21 14:17:00 21.77 kg/m2 [facility] Systolic blood pressure 2022-05-02 20:58:00 170 mm[Hg] [facility] Diastolic blood pressure 2022-05-02 20:58:00 89 mm[Hg] [facility] Heart rate 2022-05-02 20:58:00 80 /min [facility] Respiratory rate 2022-05-02 20:58:00 16 /min [facility] Oxygen saturation in Arterial blood by Pulse oximetry 2022-05-02 20:58:00 98 /min [facility] Body temperature 2022-05-02 16:41:00 36.67 [facility] Body weight 2022-05-02 16:41:00 63.957 kg [facility] BMI 2022-05-02 16:41:00 18.61 kg/m2 [facility] Systolic blood pressure 2022-05-01 13:04:00 163 mm[Hg] [facility] Diastolic blood pressure 2022-05-01 13:04:00 91 mm[Hg] [facility] Heart rate 2022-05-01 13:04:00 68 /min [facility] Body temperature 2022-05-01 13:04:00 36.72 [facility] Respiratory rate 2022-05-01 13:04:00 18 /min [facility] Oxygen saturation in Arterial blood by Pulse oximetry 2022-05-01 13:04:00 98 /min [facility] Body height 2022-04-30 12:32:00 185.4 cm [facility] Body weight 2022-04-30 12:32:00 64 kg [facility] BMI 2022-04-30 12:32:00 18.62 kg/m2 [facility] Systolic blood pressure 2022-04-29 02:45:00 154 mm[Hg] [facility] Diastolic blood pressure 2022-04-29 02:45:00 125 mm[Hg] [facility] Heart rate 2022-04-29 02:45:00 69 /min [facility] Respiratory rate 2022-04-29 02:45:00 20 /min [facility] Oxygen saturation in Arterial blood by Pulse oximetry 2022-04-29 02:45:00 99 /min [facility] Body temperature 2022-04-28 23:07:00 36.61 Genev[facility] Body weight 2022-04-28 23:07:00 63.504 kg [facility] BMI 2022-04-28 23:07:00 18.47 kg/m2 [facility] Procedures Procedure Date / Time Performed Performing Clinician Source EXTERNAL PROVIDER - ADC CARDIOLOGY 2023-06-22 05:01:00 Doctor Unassigned, [facility] EKG-12 LEAD 2023-05-08 21:46:25 [facility] 2022-09-10 06:01:00 Doctor Unassigned, [facility] CT HEAD WO CONTRAST 2022-09-04 18:24:15 Jaqui Ervin [facility] ASSIGNMENT OF BENEFITS 2022-09-04 18:09:30 Docto r Unassigned, [facility] ASSIGNMENT OF BENEFITS 2022-08-21 13:37:31 Docto r Unassigned, [facility] REFERRAL- REQUEST/RESPONSE 2022-07-21 05:01:00 Doctor Unassigned, [facility] REFERRAL- REQUEST/RESPONSE 2022-06-27 05:01:00 Doctor Unassigned, [facility] EKG-12 LEAD 2022-05-02 20:34:45 Alicia Talley [facility] URINALYSIS 2022-05-02 17:42:00 Alicia Talley [facility] LACTIC ACID WHOLE BLOOD 2022-05-02 17:34:00 Kathy Talley [facility] TROPONIN I 2022-05-02 17:33:00 Alicia Talley [facility] COMP. METABOLIC PANEL ([id number]) 2022-05-02 17:33:00 Alicia Talley [facility] ETHANOL 2022-05-02 17:33:00 Alicia Talley [facility] CBC WITH DIFF 2022-05-02 17:33:00 Alicia Talley [facility] CONSENT/REFUSAL FOR DIAGNOSIS AND TREATMENT 2022-05-02 16:41:24 Doctor Unassigned, [facility] PHOSPHORUS 2022-05-01 05:14:00 [place] [facility] MAGNESIUM 2022-05-01 05:14:00 [place] [facility] BASIC METABOLIC PANEL (NA, K, CL, CO2, GLUCOSE, BUN, CREATININE, CA) 2022-05-01 05:14:00 [place] [facility] TRANSTHORACIC ECHO (TTE) COMPLETE 2022-04-30 19:17:[address] [facility] MAGNESIUM 2022-04-30 15:45:00 [facility] [address] [facility] BASIC METABOLIC PANEL (NA, K, CL, CO2, GLUCOSE, BUN, CREATININE, CA) 2022-04-30 15:45:00 [facility] CT CERVICAL SPINE WO CONTRAST 2022-04-30 15:08:06 [place] [facility] CT HEAD WO CONTRAST 2022-04-30 15:08:06 [place], Pet er [facility] OSMOLALITY URINE 2022-04-30 11:27:[address] [facility] (IMMUNOASSAY) - COMPREHENSIVE DRUG SCREEN 2022-04-30 11:27:00 [place] [facility] URINALYSIS 2022-04-30 11:27:[address] [facility] CREATININE, URINE RANDOM 2022-04-30 11:27:00 [facility] SODIUM, URINE RANDOM 2022-04-30 11:27:[address] Cle[address] [facility] ACTIVATED PARTIAL THRMPLAS DANNY 2022-04-30 11:26:00 [facility] [address] [facility] PROTHROMBIN TIME / INR 2022-04-30 05:27:00 Shireen Plazashireen [facility] ACTIVATED PARTIAL THRMPLAS DANNY 2022-04-30 05:27:00 [facility] [address] [facility] CREATINE KINASE 2022-04-29 23:20:00 [facility] [address] [facility] MAGNESIUM 2022-04-29 23:20:00 Jose [address] [facility] OSMOLALITY, SERUM OR PLASMA 2022-04-29 23:20:00 Bola [facility] TROPONIN I 2022-04-29 23:20:00 Bubba Echevarria [facility] THYROID STIMULATING HORMONE 2022-04-29 23:20:00 [facility] METABOLIC PANEL (52360) 2022-04-29 23:20:00 [facility] LIPID PANEL (43763)(TOTAL CHOLESTEROL, TRIGLYCERIDES, HDL) 2022-04-29 23:20:[address] [facility] CBC WITH DIFF 2022-04-29 23:20:00 Bubba Echevarria [facility] GLYCOSYLATED HEMOGLOBIN (A1C) 2022-04-29 23:20:00 [address] [facility] N-TERMINAL PRO-BNP 2022-04-29 23:20:00 Bubba Echevarria [facility] FREE T3 2022-04-29 23:20:[address] [facility] COVID-19 (ID NOW RAPID TESTING) 2022-04-29 23:20:00 Bubba Echevarria [facility] LAB ONLY COVID INTERPRETATION 2022-04-29 23:20:00 Bubba Echevarria [facility] XR CHEST 1 VW 2022-04-29 22:57:00 Bubba Echevarria [facility] HB ECG ROUTINE & RHYTHM STRIP 2022-04-29 21:53:14 Bubba Echevarria [facility] XR CHEST 2 VW 2022-04-29 00:46:00 Bernardo Rodríguez [facility] EKG-12 LEAD 2022-04-29 00:23:05 Bernardo Rodríguez [facility] LIPASE 2022-04-29 00:08:00 Bernardo Rodríguez [facility] TROPONIN I 2022-04-29 00:08:00 Bernardo Rodríguez [facility] HEPATIC FUNCTION PANEL (86236) (ALB,T.PRO,BILI T,BU/BC,ALT,AST,ALK PHOS) 2022-04-29 00:08:00 Bernardo Rodríguez [facility] BASIC METABOLIC PANEL (NA, K, CL, CO2, GLUCOSE, BUN, CREATININE, CA) 2022-04-29 00:08:00 Bernardo Rodríguez [facility] CBC WITH DIFF 2022-04-29 00:08:00 Bernardo Rodríguez [facility] N-TERMINAL PRO-BNP 2022-04-29 00:08:00 Bernardo Rodríguez [facility] COVID-19 (ID NOW RAPID TESTING) 2022-04-29 00:08:00 Bernardo Rodríguez [facility] Encounters Start Date/Time End Date/Time Encounter Type Admission Type Attending [facility] Emergency Department Facility Care Department Encounter ID Source 2025-06-14 00:00:00 2025-06-14 00:00:00 Pino Almeida MD: [address] [place] [phone] , Ph. [facility] [id number] [facility] 2025-06-13 00:00:00 2025-06-13 00:00:00 LANDON Sullivan: [address] [place] [phone] , Ph. [facility] [id number] [facility] 2025-05-02 00:00:00 2025-05-02 00:00:00 LANDON Sullivan: [address] [place] [phone] , Ph. [facility] - [facility] [id number] [facility] 2025-04-05 00:00:00 2025-04-05 00:00:00 Pino Almeida MD: [address] [place], [place] [phone] , Ph. [facility] - [facility] [id number] [facility] 2025-04-04 00:00:00 2025-04-04 00:00:00 LANDON Sullivan: [address] [place] [phone] , Ph. [phone] [place] [address] - [facility] [id number] [facility] 2025-03-02 00:00:00 2025-03-02 00:00:00 LANDON Sullivan: [address] [place] [phone] , Ph. [facility] [id number] [facility] 2025-02-01 00:00:00 2025-02-01 00:00:00 Pino Almeida MD: [address] [place] [phone] , Ph. [facility] - [facility] [id number] [facility] 2025-01-26 00:00:00 2025-01-26 00:00:00 LANDON Sullivan: [address] [place] [phone] , Ph. [facility] - [facility] [id number] [facility] 2024-12-25 00:00:00 2024-12-25 00:00:00 Randi Parsons PA: [address] [place] [phone] , Ph. [facility] [id number] [facility] 2024-12-22 00:00:00 2024-12-22 00:00:00 Randi Parsons PA: [address] [place] [address] , Ph. [phone] [address] [facility] [id number] [facility] 2024-12-15 00:00:00 2024-12-15 00:00:00 Randi Parsons PA: [address] [place], [place] [phone] , Ph. [phone] [place] [address] [facility] [id number] [facility] 2024-12-01 00:00:00 2024-12-01 00:00:00 LANDON Sullivan: [address] [place] [phone] , Ph. [facility] [id number] [facility] 2024-11-27 00:00:00 2024-11-27 00:00:00 Randi Parsons PA: [address] [place] [phone] , Ph. [phone] [place] [address] [facility] [id number] [facility] 2024-11-16 00:00:00 2024-11-16 00:00:00 Pino Almeida MD: [address] [place] [phone] , Ph. [phone] [place] [address] [facility] [id number] [facility] 2024-11-03 00:00:00 2024-11-03 00:00:00 LANDON Sullivan: [address] [place] [phone] , Ph. [facility] - [facility] [id number] [facility] 2024-10-03 00:00:00 2024-10-03 00:00:00 Randi Parsons PA: [address] [place] [phone] , Ph. [phone] [place] [address] - [facility] [id number] [facility] 2024-09-15 00:00:00 2024-09-15 00:00:00 Randi Parsons PA: [address] [place] [phone] , Ph. [facility] - [facility] [id number] [facility] 2024-09-14 00:00:00 2024-09-14 00:00:00 Pino Almeida MD: [address] [place] [phone] , Ph. [facility] - [facility] [id number] [facility] 2024-09-04 00:00:00 2024-09-04 00:00:00 LANDON Sullivan: [address] [place] [phone] , Ph. [facility] - [facility] [id number] [facility] 2024-08-02 00:00:00 2024-08-02 00:00:00 LANDON Sullivan: [address] [place] [phone] , Ph. [facility] - [facility] [id number] [facility] 2024-07-13 00:00:00 2024-07-13 00:00:00 Pino Almeida MD: [address] [place] [phone] , Ph. [phone] [place] [address] - [facility] [id number] [facility] 2024-07-04 00:00:00 2024-07-04 00:00:00 LANDON Sullivan: [address] [place] [phone] , Ph. [facility] - [facility] [id number] [facility] 2024-06-07 00:00:00 2024-06-07 00:00:00 LANDON Sullivan: [address] [place] [phone] , Ph. [phone] [place] [address] - [facility] [id number] [facility] 2024-05-22 00:00:00 2024-05-22 00:00:00 Randi Parsons PA: [address] [place] [phone] , Ph. [phone] [place] [address] Health - [facility] [id number] [facility] 2024-05-11 00:00:00 2024-05-11 00:00:00 Pino Almeida MD: [address] [place] [phone] , Ph. [facility] [id number] [facility] 2024-04-28 00:00:00 2024-04-28 00:00:00 LANDON Sullivan: [address] [place] [phone] , Ph. [facility] [id number] [facility] 2024-04-17 00:00:00 2024-04-17 00:00:00 Randi Parsons PA: [address] [place] [phone] , Ph. [phone] [place] [address] [facility] [id number] [facility] 2024-04-04 00:00:00 2024-04-04 00:00:00 LANDON Sullivan: [address] [place] [phone] , Ph. [facility] [id number] [facility] 2024-03-24 00:00:00 2024-03-24 00:00:00 LANDON Sullivan: [address] [place] [phone] , Ph. [facility] [id number] [facility] 2024-03-22 00:00:00 2024-03-22 00:00:00 LANDON Sullivan: [address] [place] [phone] , Ph. [facility] [id number] [facility] 2024-03-21 00:00:00 2024-03-21 00:00:00 LANDON Sullivan: [address] [place] [address] , Ph. [facility] [id number] [facility] 2024-03-16 00:00:00 2024-03-16 00:00:00 Pino Almeida MD: [address] [place] [phone] , Ph. [facility] - [facility] [id number] [facility] 2024-03-15 00:00:00 2024-03-15 00:00:00 Randi Parsons PA: [address] [place] [phone] , Ph. [facility] [id number] [facility] 2024-02-18 00:00:00 2024-02-18 00:00:00 Randi Parsons PA: [address] [place] [phone] , Ph. [facility] [id number] [facility] 2024-02-17 08:40:00 2024-02-17 08:40:00 Outpatient R KYLEE RADFORD [facility]A [facility] [id number] [facility] 2024-02-11 00:00:00 2024-02-11 00:00:00 Randi Parsons PA: [address] [place] [phone] , Ph. [facility] - [facility] [id number] [facility] 2024-02-04 00:00:00 2024-02-04 00:00:00 Randi Parsons PA: [address] [place] [phone] , Ph. [facility] - [facility] [id number] [facility] 2024-02-01 00:00:00 2024-02-01 00:00:00 Outpatient [facility] [id number] [facility] 2024-01-31 00:00:00 2024-01-31 00:00:00 Outpatient [facility] [id number] [facility] 2024-01-28 00:00:00 2024-01-28 00:00:00 Randi Parsons PA: [address] [place] [phone] , Ph. [facility] - [facility] [id number] [facility] 2024-01-27 00:00:00 2024-01-27 00:00:00 Outpatient [facility] [id number] [facility] 2024-01-24 00:00:00 2024-01-24 00:00:00 LANDON Sullivan: [address] [place] [phone] , Ph. [facility] [id number] [facility] 2024-01-21 00:00:00 2024-01-21 00:00:00 LANDON Sullivan: [address] [place] [phone] , Ph. [facility] [id number] [facility] 2024-01-20 00:00:00 2024-01-20 00:00:00 Pino Almeida MD: [address] [place] [phone] , Ph. [facility] - [facility] [id number] [facility] 2024-01-19 00:00:00 2024-01-19 00:00:00 Outpatient [facility] [id number] [facility] 2024-01-18 00:00:00 2024-01-18 00:00:00 Outpatient [facility] [id number] [facility] 2024-01-17 00:00:00 2024-01-17 00:00:00 Randi Parsons PA: [address] [place] [phone] , Ph. [facility] - [facility] [id number] [facility] 2024-01-16 00:00:00 2024-01-16 00:00:00 Outpatient [facility] [id number] [facility] 2023-12-21 00:00:00 2023-12-21 00:00:00 Randi Parsons PA: [address] [place] [phone] , Ph. [facility] [id number] [facility] 2023-12-14 00:00:00 2023-12-14 00:00:00 LANDON Sullivan: [address] [place] [phone] , Ph. [facility] - [facility] [id number] [facility] 2023-12-08 00:00:00 2023-12-08 00:00:00 Randi Parsons PA: [address] [place] [phone] , Ph. [facility] - [facility] [id number] [facility] 2023-12-03 00:00:00 2023-12-03 00:00:00 LANDON Sullivan: [address] [place] [phone] , Ph. [facility] - [facility] [id number] [facility] 2023-11-23 00:00:00 2023-11-23 00:00:00 Randi Parsons PA: [address] [place] [id number] , Ph. [facility] [id number] [facility] 2023-11-19 00:00:00 2023-11-19 00:00:00 Randi Parsons PA: [address] [place] [phone] , Ph. [phone] [place] [address] [facility] [id number] [facility] 2023-11-16 00:00:00 2023-11-16 00:00:00 Randi Parsons PA: [address] [place] [phone] , Ph. [phone] [place] [address] [facility] [id number] [facility] 2023-11-12 00:00:00 2023-11-12 00:00:00 Randi Parsons PA: [address] [place] [address] , Ph. [facility] [id number] [facility] 2023-11-09 00:00:00 2023-11-09 00:00:00 Randi Parsons PA: [address] [place] [phone] , Ph. [facility] [id number] [facility] 2023-09-02 08:30:00 2023-09-02 08:30:00 Outpatient KYLEE MCGINNIS [facility] [id number] [facility] 2023-08-19 11:40:00 2023-08-19 12:26:17 Outpatient KYLEE MCGINNIS [facility] [id number] [facility] 2023-08-19 11:40:00 2023-08-19 12:26:17 Office Visit Kylee Radford [facility] 1.2.840.114 350.1.13.10 4.2.7.2.686 [id number] [facility] 2023-08-05 14:00:00 2023-08-05 14:00:00 Outpatient R KYLEE RADFORD [facility] [id number] [facility] 2023-07-12 00:00:00 2023-07-12 00:00:00 Telephone Naa Lamb [facility] 1..840.114 350.1.13.10 4.2.7.2.686 [id number] [facility] 2023-06-22 09:30:00 2023-06-22 11:17:47 Outpatient R NAA LAMB [facility] [id number] [facility] 2023-06-22 09:30:00 2023-06-22 11:17:47 Office Visit Naa Lamb [facility] 1.2.840.114 350.1.13.10 4.2.7.2.686 [id number] [facility] 2023-06-22 00:00:00 2023-06-22 00:00:00 Orders Only Doctor Unassigned, Cantril [facility] 1..840.114 350.1.13.10 4.2.7.2.686 [id number] [facility] 2023-05-08 16:30:00 2023-05-08 17:09:00 Emergency EM [facility] ERT [id number] [facility] 2023-05-08 16:30:00 2023-05-08 17:09:00 Emergency Em Smith [facility] 1.2.840.114 350.1.13.10 4.2.7.2.686 [id number] [facility] 2023-02-05 00:00:00 2023-02-05 00:00:00 LANDON Sullivan: [address] [place] [phone] , Ph. [facility] - [facility] [id number] [facility] 2023-02-02 00:00:00 2023-02-02 00:00:00 Pino Almeida MD: [address] [place] [phone] , Ph. [facility] [id number] [facility] 2023-01-27 00:00:00 2023-01-27 00:00:00 LANDON Sullivan: [address] [place] [address] , Ph. [facility] [id number] [facility] 2023-01-18 11:00:00 2023-01-18 11:31:14 [id number] [facility] 2023-01-18 11:00:00 2023-01-18 11:31:14 [facility] 1.2.840.114 350.1.13.10 4.2.7.2.686 [id number] [facility] 2023-01-12 00:00:00 2023-01-12 00:00:00 Telephone [facility] 1.2.840.114 350.1.13.10 4.2.7.2.686 [id number] [facility] 2022-12-29 00:00:00 2022-12-29 00:00:00 LANDON Sullivan: [address] [place] [phone] , Ph. [facility] [id number] [facility] 2022-12-15 00:00:00 2022-12-15 00:00:00 Randi Parsons PA: [address] [place] [phone] , Ph. [facility] [id number] [facility] 2022-12-08 15:30:00 2022-12-08 15:30:00 Outpatient NAA CORREA [facility] [id number] [facility] 2022-11-24 00:00:00 2022-11-24 00:00:00 LANDON Sullivan: [address] [place] [phone] , Ph. [facility] [id number] [facility] 2022-11-10 15:30:00 2022-11-10 15:30:00 Outpatient NAA CORREA [facility] [id number] [facility] 2022-11-02 00:00:00 2022-11-02 00:00:00 Patient Outreach Jayna Rizvi 1.2.840.114 350.1.13.10 4.2.7.2.686 [id number] [facility] 2022-10-16 00:00:00 2022-10-16 00:00:00 LANDON Sullivan: [address] [place] [address] , Ph. [facility] [id number] [facility] 2022-10-09 00:00:00 2022-10-09 00:00:00 LANDON Sullivan: [address] [place] [phone] , Ph. [facility] [id number] [facility] 2022-09-29 00:00:00 2022-09-29 00:00:00 Pino Almeida MD: [address] [place] [phone] , Ph. [facility] [id number] [facility] 2022-09-25 10:30:00 2022-09-25 10:47:39 Outpatient R ALVIN [facility] [id number] [facility] 2022-09-25 10:30:00 2022-09-25 10:47:[address] [facility] 1.2.840.114 350.1.13.10 4.2.7.2.686 [id number] [facility] 2022-09-23 00:00:00 2022-09-23 00:00:00 Patient Outreach Ileana Szymanski [facility] 1..840.114 350.1.13.10 4.2.7.2.686 [id number] [facility] 2022-09-22 00:00:00 2022-09-22 00:00:00 LANDON Sullivan: [address] [place] [phone] , Ph. [facility] [id number] [facility] 2022-09-15 00:00:00 2022-09-15 00:00:00 LANDON Sullivan: [address] [place] [phone] , Ph. [facility] - [facility] [id number] [facility] 2022-09-10 13:00:00 2022-09-10 13:19:43 Outpatient R NAA LAMB [facility] [id number] [facility] 2022-09-10 13:00:00 2022-09-10 13:19:43 Office Visit Naa Lamb [facility] 1..840.114 350.1.13.10 4.2.7.2.686 [id number] [facility] 2022-09-10 00:00:00 2022-09-10 00:00:00 Patient Secure Msg Doctor Unassigned, Cantril [facility] 1..840.114 350.1.13.10 4.2.7.2.686 [id number] [facility] 2022-09-10 00:00:00 2022-09-10 00:00:00 Orders Only Doctor Unassigned, Cantril [facility] 1.840.114 350.1.13.10 4.2.7.2.686 [id number] [facility] 2022-09-08 00:00:00 2022-09-08 00:00:00 LANDON Sullivan: [address] [place] [phone] , Ph. [facility] - [facility] e [facility] [id number] [facility] 2022-09-04 12:11:00 2022-09-04 23:59:00 Outpatient BLAIR YANG HOWARD [facility] [id number] [facility] 2022-09-04 12:11:00 2022-09-04 23:59:00 Hospital Encounter Blair Ervin [facility] 1..840.114 350.1.13.10 4.2.7.2.686 [id number] [facility] 2022-09-04 00:00:00 2022-09-04 00:00:00 Orders Only Doctor Unassigned, Cantril [facility] 1.2840.114 350.1.13.10 4.2.7.2.686 [id number] [facility] 2022-08-29 00:00:00 2022-08-29 00:00:00 Patient Secure Msg Doctor Unassigned, Cantril [facility] 1.20.114 350.1.13.10 4.2.7.2.686 [id number] [facility] 2022-08-21 11:30:00 2022-08-21 11:45:00 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[employer] Visit Lab, Blair Hubbard [facility] MEDICAL OFFICE BUILDING 1.84.114 350.1.13.10 4.2.7.2.686 [id number] [facility] 2022-08-21 09:00:00 2022-08-21 10:20:54 Outpatient R BLAIR ERVIN [facility] [id number] [facility] 2022-08-21 09:00:00 2022-08-21 10:20:54 Office Visit Blair Ervin [facility] 1.840.114 350.1.13.10 4.2.7.2.686 [id number] [facility] 2022-08-21 00:00:00 2022-08-21 00:00:00 Orders Only Doctor Unassigned, Cantril [facility] 1.2840.114 350.1.13.10 4.2.7.2.686 [id number] [facility] 2022-08-11 00:00:00 2022-08-11 00:00:00 Patient Outreach Ileana Szymanski 1.2.840.114 350.1.13.10 4.2.7.2.686 [id number] [facility] 2022-07-30 13:00:00 2022-07-30 13:00:00 Outpatient PETROS DELEON [facility] [id number] [facility] 2022-07-23 00:00:00 2022-07-23 00:00:00 Patient Outreach Jayna Rizvi 1.2.840.114 350.1.13.10 4.2.7.2.686 [id number] [facility] 2022-07-21 00:00:00 2022-07-21 00:00:00 Orders Only Doctor Unassigned, Cantril [facility] 1.2.840.114 350.1.13.10 4.2.7.2.686 [id number] 009 [id number] [facility] 2022-06-27 00:00:00 2022-06-27 00:00:00 Orders Only Doctor Unassigned, Cantril [facility] 1.2.840.114 350.1.13.10 4.2.7.2.686 [id number] [id number] [facility] 2022-06-11 00:00:00 2022-06-11 00:00:00 Patient Outreach Ileana Szymanski 1.2.840.114 350.1.13.10 4.2.7.2.686 [id number] 403 [id number] [facility] 2022-06-09 00:00:00 2022-06-09 00:00:00 Patient Outreach Jayna Rizvi 1.2.840.114 350.1.13.10 4.2.7.2.686 [id number] 403 [id number] [facility] 2022-06-04 00:00:00 2022-06-04 00:00:00 Patient Outreach Zak Spears 1.2.840.114 350.1.13.10 4.2.7.2.686 [id number] [facility] 2022-05-29 00:00:00 2022-05-29 00:00:00 Patient Outreach Zak Spears 1.2.840.114 350.1.13.10 4.2.7.2.686 [id number] [facility] 2022-05-25 00:00:00 2022-05-25 00:00:00 Patient Outreach Zak Spears 1.2.840.114 350.1.13.10 4.2.7.2.686 [id number] [facility] 2022-05-22 00:00:00 2022-05-22 00:00:00 Patient Outreach Jayna RizviGay OLIVERA PLAPADMINI 1.2.840.114 350.1.13.10 4.2.7.2.686 [id number] [facility] 2022-05-20 00:00:00 2022-05-20 00:00:00 Patient Outreach Zak Spears 1.2.840.114 350.1.13.10 4.2.7.2.686 [id number] 403 [id number] [facility] 2022-05-19 10:00:00 2022-05-19 11:00:00 Patient Outreach Jayna Rizvi TRIXIE DAVIS 1.2.840.114 350.1.13.10 4.2.7.2.686 [id number] [facility] 2022-05-18 00:00:00 2022-05-18 00:00:00 Patient Outreach Jayna Rizvi TRIXIE DAVIS 1.2.840.114 350.1.13.10 4.2.7.2.686 [id number] [facility] 2022-05-15 00:00:00 2022-05-15 00:00:00 Patient Outreach Jayna Rizvi 1.2.840.114 350.1.13.10 4.2.7.2.686 [id number] 403 [id number] [facility] 2022-05-11 00:00:00 2022-05-11 00:00:00 Patient Outreach Darlene Alvarez 1.2.840.114 350.1.13.10 4.2.7.2.686 [id number] 403 [id number] [facility] 2022-05-08 00:00:00 2022-05-08 00:00:00 Transition of Care Nidia George 1.2.840.114 350.1.13.10 4.2.7.2.686 [id number] 403 [id number] [facility] 2022-05-06 00:00:00 2022-05-06 00:00:00 Patient Outreach Darlene Alvarez 1.2.840.114 350.1.13.10 4.2.7.2.686 [id number] 403 [id number] [facility] 2022-05-04 00:00:00 2022-05-04 00:00:00 Transition of Care Nidia George 1.2.840.114 350.1.13.10 4.2.7.2.686 [id number] [facility] 2022-05-02 11:45:00 2022-05-02 16:29:00 Emergency X ALICIA TALLEY [facility] ERT [id number] [facility] 2022-05-02 11:45:00 2022-05-02 16:29:00 Emergency Alicia Tal[facility] 1.2.840.114 350.1.13.10 4.2.7.2.686 [id number] [facility] 2022-04-29 16:35:00 2022-05-01 18:23:00 Inpatient X DANIEL KUNZ [facility] ZOEY [id number] [facility] 2022-04-29 16:35:00 2022-05-01 18:23:00 Hospital Encounter FinnBernardo, Dalton Watson , Zo Homero Kunz, Daniel Jennings[facility] 1.2.840.114 350.1.13.10 4.2.7.2.686 [id number] [facility] 2022-04-28 18:09:00 2022-04-28 21:49:00 Emergency X BERNARDO RODRÍGUEZ [facility] ERT [id number] [facility] 2022-04-28 18:09:00 2022-04-28 21:49:00 Emergency Bernardo Rodríguez [facility] 1.2.840.114 350.1.13.10 4.2.7.2.686 [id number] [facility] Results Test Description Test Time Test Comments Results Result Co mments Source TSH, THIRD [id number] 04:48:56* Test Item Value Reference Range Interpretation Comme nts TSH, THIRD GENERATION (test code = 2821) 0.698 UIU/ML 0.400-4.100 PSA, [id number] 04:48:56* Test Item Value Reference Range Interpretation Comme nts PSA, TOTAL (test code = 2606) 2.51 NG/ML See_Comment NOTE: Methodolog y is Zuleika Jayashree Electrochemiluminescence Immunoassay traceable to WHO reference standard 96/760. UNLESS OTHERWISE INDICATED, ALL TESTING PERFORMED [employer] [facility] [employer] [address] [place] [address] [employer] EX[employer] SOFT WORK: KODI TRIANA M.D. CLIA NUMBER [id number] [place]. [id number] [Automated message] The system which generated this result transmitted reference range: <=4.00. The reference range was not used to interpret this result as normal/abnormal. LIPID [id number] 04:23:44* Test Item Value Reference Range Interpretation [...] SPECIMENS. FOR MOREINFORMATION, SEE CLIENT ANNOUNCEMENT AT [email or web address] RISK RATIO LDL/HDL (test code = 2238) 2.87 RATIO <3.55 COMPREHENSIVE METABOLIC [id number] 04:23:44* Test Item Value Reference Range Interpretation Comme nts GLUCOSE (test code = 2217) 89 MG/DL 70-99 BUN (test code = 2208) 14 MG/DL 8-23 CREATININE (test code = 2214) 0.85 MG/DL 0.80-1.40 eGFR (2020 CKD-EPI) (test code = 74708) 93 ML/MIN/1.73 >60 CALC BUN/CREAT (test code = 2235) 16 RATIO 6-28 SODIUM (test code = 223) 147 MEQ/L 133-146 H POTASSIUM (test code = 2228) 4.2 MEQ/L 3.5-5.4 CHLORIDE (test code = 2215) 107 MEQ/L 95-107 CARBON DIOXIDE (test code = 2206) 28 MEQ/L 19-31 CALCIUM (test code = 2209) 9.9 MG/DL 8.5-10.5 PROTEIN, TOTAL (test code = 222) 8.0 G/DL 6.1-8.3 ALBUMIN (test code = 2201) 4.7 G/DL 3.5-5.2 CALC GLOBULIN (test code = 2240) 3.3 G/DL 1.9-3.7 CALC A/G RATIO (test code = 2234) 1.4 RATIO 1.0-2.6 BILIRUBIN, TOTAL (test code = 2207) 0.9 MG/DL See_Comment [Automated me ssage] The system which generated this result transmitted reference range: <=1.2. The reference range was not used to interpret this result as normal/abnormal. ALKALINE PHOSPHATASE (test code = 2204) 94 U/L 40-125 AST (test code = 2218) 21 U/L 9-50 ALT (test code = 2219) 19 U/L 5-50 HEMOGLOBIN [id number] 03:10:09* Test Item Value Reference Range Interpretation Comme nts HEMOGLOBIN A1c (test code = 97537) 5.5 % 4.2-5.6 CBC W/AUTO DIFF WITH [id number] 01:57:11* Test Item Value Reference Range Interpretation [...] 0.00-0.10 ABS NUCLEATED RBCS (test code = 61850) 0.00 K/UL 0.00-0.11 Lactic Acid Whole [id number] 17:48:24* Test Item Value Reference Range Interpretation Comme nts LACTIC ACID (test code = 7947415607) 1.59 mmol/L 0.50-2.20 Lab Interpretation (test cod e = 83616-2) Normal [facility] METABOLIC PANEL (NA, K, CL, CO2, GLUCOSE, BUN, CREATININE, CA)2022-05-01 06:55:06* Test Item Value Reference Range Interpretation Comme nts NA (test code = 4452677786) 140 mmol/L 135-145 K (test code = 1676308623) 3.9 mmol/L 3.5-5.0 CL (test code = 7727778440) 111 mmol/L 98-108 H CO2 TOTAL (test code = 3689834440) 24 mmol/L 23-31 AGAP (test code = 4581219401) 2-16 BUN (test code = 3468654371) 25 mg/dL 7-23 H GLUCOSE (test code = 7714027071) 86 mg/dL 70-110 CREATININE (test code = 7940755036) 0.64 mg/dL 0.60-1.25 CALCIUM (test code = 5879515020) 8.0 mg/dL 8.6-10.6 L eGFR (test code = 7961530590) mL/min/1.73m2 NEYMAR (test code = NEYMAR) Association [...] imaging tests). Lab Interpretation (test code = 07677-4) [facility] 06:55:06* Test Item Value Reference Range Interpretation Comme nts MAGNESIUM (test code = 1523239079) 1.9 mg/dL 1.7-2.4 Lab Interpretation (test cod e = 94404-2) [facility]2022-07-08 06:55:06* Test Item Value Reference Range Interpretation Comme nts PHOSPHORUS (test code = 2680435312) 2.5 mg/dL 2.5-5.0 Lab Interpretation (test cod e = 57906-2) Normal [facility]icsTransthoracic echo (TTE)2022-04-30 20:28:01* Test Item Value Reference Range Interpretation Comme nts Height (test code = 1901341272) in Weight (test code = 5396644725) lbs Systolic BP (test code = 5664265152) mmHg Diastolic BP (test code = 2776825929) mmHg Heart Rate (test code = 4347855994) bpm LVOT stroke volume (test code = 2757383021) 47.40 cm3 EF(Teich) (test code = 9415433427) 63.50 % LVIDD (test code = 2251414131) 5.20 cm LVIDS (test code = 1355711557) 3.40 cm IVS (test code = 3351090894) 1.24 cm LVPWD (test code = 8379259122) 1.21 cm LVOT diameter (test code = 8063253596) 2.29 cm FS (test code = 2121311619) 35 % MV Peak E Jovon (test code = 4898034976) 65.6 cm/s E wave decelartion time (test code = 8010956035) 0.19 s LVOT peak jovon (test code = 4379158069) 65.1 cm/s LVOT mn grad (test code = 4847459610) mmHg LA size (test code = 6718476141) 3.6 cm Aortic valve mean velocity (test code = 9556881423) 73.8 cm/s Ao peak jovon (test code = 0007510077) 115.8 cm/s Ao VTI (test code = 0332255110) 17.4 cm AV LVOT peak gradient (test code = 3620115273) mmHg LVOT peak VTI (test code = 6065831838) 11.5 cm AV area by cont VTI (test code = 8904564452) 2.7 cm2 AV area peak jovon (test code = 7073511351) 2.3 cm2 LV V1 mean (test code = 5061373545) 40.20 cm/s Ao max PG (test code = 0735028378) 5.40 mm[Hg] MV Prop V (test code = 1041856394) 54.90 cm/s Ao root annulus (test code = 6177709874) 3.4 cm Ao root diam (test code = 1358857851) 3.40 cm AV peak gradient (test code = 2061686467) mmHg AV valve area (test code = 0375458380) 2.70 cm2 AV mean gradient (test code = 9788902717) mmHg Aortic root (test code = 8289452023) 3.4 cm PW (test code = 6856498056) 1.21 cm 0.6-1.1 EF - 2D (test code = 41469586) 63.50 % Interventricular Septum Diastolic Thickness by 2D (test code = 2947560) 1.24 cm BSA (test code = 7944753921) 1.84 m2 Radiology Study observation (narrative) (test code = 63400-9) NEYMAR (test code = NEYMAR) ?Left?Ventricle: There is mild concentric hypertrophy. Normal wall motion. Normal systolic function with a visually estimated EF of 55 - 60%. Septal motion is normal. Diastolic dysfunction, cannot be graded due to Afib ?Pulmonic?Valve: Pulmonic valve is normal in structure and function. ?Tricuspid?Valve: Tricuspid valve structure is normal. ?Aortic?Valve: No hemodynamically significant . [facility]icsGLYCOSYLATED HEMOGLOBIN (A1C)2022-04-30 16:26:24* Test Item Value Reference Range Interpretation Comme nts HGB A1C (test code = 4548-4) 5.5 % 4.0-5.7 NEYMAR (test code = NEYMAR) Reference RangesNormal: <5.7%Prediabetes: 5.7 - 6.4%Diabetes: > 6.5% Lab Interpretation (test code = 23028-6) [facility] (NA, K, CL, CO2, GLUCOSE, BUN, CREATININE, CA)2022-04-30 16:15:38* Test Item Value Reference Range Interpretation Comme nts NA (test code = 8087615048) 144 mmol/L 135-145 K (test code = 3844580298) 4.1 mmol/L 3.5-5.0 CL (test code = 3009239400) 113 mmol/L 98-108 H CO2 TOTAL (test code = 6408081553) 28 mmol/L 23-31 AGAP (test code = 5528769816) 2-16 BUN (test code = 9678419713) 31 mg/dL 7-23 H GLUCOSE (test code = 7798032382) 142 mg/dL 70-110 H CREATININE (test code = 9057302606) 0.65 mg/dL 0.60-1.25 CALCIUM (test code = 8272096603) 8.4 mg/dL 8.6-10.6 L eGFR (test code = 8370662861) mL/min/1.73m2 NEYMAR (test code = NEYMAR) Association [...] imaging tests). Lab Interpretation (test code = 95902-6) Abnormal [facility]2022-07-07 16:15:38* Test Item Value Reference Range Interpretation Comme nts MAGNESIUM (test code = 9656821611) 2.1 mg/dL 1.7-2.4 Lab Interpretation (test cod e = 00683-1) Normal [facility]icsaP[facility] (for use with Heparin Infusion)2022-04-30 13:43:36* Test Item Value Reference Range Interpretation Comme nts APTT Patient (test code = 3173-2) See_Comment H [Automated [employer]] The system which generated this result transmitted reference range: 26 - 36 Seconds. The reference range was not used to interpret this result as normal/abnormal. Lab Interpretation (test code = 68472-6) Abnormal [facility] [id number] 06:04:45* Test Item Value Reference Range Interpretation Comme nts FREE T3 (test code = 7477462800) 2.48 pg/mL 2.77-5.27 L Lab Interpretation (test cod e = 67138-7) Abnormal [facility] ClinicsProthrombin Time / [id number] 05:58:05* Test Item Value Reference Range Interpretation Comme nts PROTIME PATIENT (test code = 5964-2) See_Comment H [Automated Reach [employer]sa ge] The system which generated this result transmitted reference range: 10.1 - 12.6 Seconds. The reference range was not used to interpret this result as normal/abnormal. INR (test code = 6301-6) Normal INR <1.1; Warfarin Therapeutic range 2.0 to 3.0 or 2.5 to 3.5, depending upon the indications. Lab Interpretation (test code = 29809-9) Abnormal [facility]icsaPTT2022-07-07 05:58:05* Test Item Value Reference Range Interpretation Comme [facility] APTT Patient (test code = 3173-2) See_Comment [Automated Reach [employer]] The system which generated this result transmitted reference range: 26 - 36 Seconds. The reference range was not used to interpret this result as normal/abnormal. Lab Interpretation (test code = 64872-1) Normal [facility] ClinicsLIPID PANEL (40550)(TOTAL CHOLESTEROL, TRIGLYCERIDES, HDL)2022-04-30 05:46:07* Test Item Value Reference Range Interpretation Comme nts CHOL (test code = 2739023183) 180 mg/dL 120-200 HDL (test code = 7745286596) 30 mg/dL >40 L HDLC RATIO (test code = 8999571047) See_Comment H [Automated Reach [employer]] The system which generated this result transmitted reference range: <=5.0. The reference range was not used to interpret this result as normal/abnormal. TRIG (test code = 8339987952) 104 mg/dL 30-170 LDL CHOL (test code = 86712-6) 129 mg/dL See_Comment [Automated messa ge] The system which generated this result transmitted reference range: <=160. The reference range was not used to interpret this result as normal/abnormal. VLDL (test code = 9606142231) 21 mg/dL 5-60 Lab Interpretation (test code = 70152-2) Abnormal [facility]icsMAGNESIUM2022-07-07 05:46:07* Test Item Value Reference Range Interpretation Comme nts MAGNESIUM (test code = 1857096772) 2.2 mg/dL 1.7-2.4 Lab Interpretation (test cod e = 19867-3) Normal [facility] ClinicsCREATINE [id number] 05:46:07* Test Item Value Reference Range Interpretation Comme nts CK (test code = 6177278633) 47 U/L 33-194 Lab Interpretation (test cod e = 00182-7) Normal [facility] ClinicsOSMOLALITY, SERUM OR [id number] 05:45:32 * Test Item Value Reference Range Interpretation Comme nts OSMOLALITY (test code = 2692-2) See_Comment HH [Automated messa ge] The system which generated this result transmitted reference range: 278 - 305 mOsm/kg. The reference range was not used to interpret this result as normal/abnormal. Lab Interpretation (test code = 40537-3) Abnormal [facility] ClinicsTHYROID STIMULATING [id number] 03:23:38 * Test Item Value Reference Range Interpretation Comme nts TSH (test code = 2802464635) See_Comment L Biotin has been reported to cause a negative bias, interpret results relative to patient's use of biotin. [Automated message] The system which generated this result transmitted reference range: 0.45 - 4.70 mIU/L. The reference range was not used to interpret this result as normal/abnormal. Lab Interpretation (test code = 01933-9) Abnormal [facility] ClinicsTroponin [id number] 00:18:11* Test Item Value Reference Range Interpretation Comments TROPONIN I (test code = 5079675281) 0.010 ng/mL See_Comment [Automated message] The system which generated this result transmitted reference range: <=0.034. The reference range was not used to interpret this result as normal/abnormal. ENYMAR (test code = NEYMAR) Reference (Normal) Range [...] of biotin. Lab Interpretation (test code = 56173-3) Normal [facility] ClinicsN-TERMINAL [id number] 00:18:11* Test Item Value Reference Range Interpretation Comme nts NT-proBNP (test code = 1772676625) 1070 pg/mL See_Comment H [Automated message] The system which generated this result transmitted reference range: <=125. The reference range was not used to interpret this result as normal/abnormal. NEYMAR (test code = NEYMAR) Biotin has been reported to cause a negative bias, interpret results relative to patient's use of biotin. Lab Interpretation (test code = 01196-0) Abnormal [facility] ClinicsCMP2022-07-07 00:04:30* Test Item Value Reference Range Interpretation Comme nts NA (test code = 4291890735) 152 mmol/L 135-145 H K (test code = 5356158419) 3.9 mmol/L 3.5-5.0 CL (test code = 3494164600) 119 mmol/L 98-108 H CO2 TOTAL (test code = 4598845941) 21 mmol/L 23-31 L AGAP (test code = 9177565818) 2-16 BUN (test code = 8969452716) 37 mg/dL 7-23 H GLUCOSE (test code = 9333275360) 112 mg/dL 70-110 H CREATININE (test code = 4764843526) 1.25 mg/dL 0.60-1.25 TOTAL BILI (test code = 6780677500) 1.3 mg/dL 0.1-1.1 H CALCIUM (test code = 6328043154) 9.2 mg/dL 8.6-10.6 T PROTEIN (test code = 2743699036) 7.5 g/dL 6.3-8.2 ALBUMIN (test code = 0698166383) 4.4 g/dL 3.5-5.0 ALK PHOS (test code = 5136410060) 96 U/L 34-122 ALTv (test code = 1742-6) 21 U/L 5-50 AST(SGOT) (test code = 7676762861) 21 U/L 13-40 eGFR (test code = 4608031500) mL/min/1.73m2 NEYMAR (test code = NEYMAR) Association [...] imaging tests). Lab Interpretation (test code = 93813-7) Abnormal [facility] with [id number] 23:40:41* Test Item Value Reference Range Interpretation Comme nts WBC (test code = 6690-2) See_Comment H [Automated [employer]] The system which generated this result transmitted reference range: 4.20 - 10.70 10*3/?L. The reference range was not used to interpret this result as normal/abnormal. RBC (test code = 789-8) See_Comment [Automated [employer]] The system which generated this result transmitted [...] 34.3 g/dL 31.2-35.0 RDW-SD (test code = 67120-5) 50.5 fL 38.5-51.6 RDW-CV (test code = 788-0) 14.7 % 12.1-15.4 PLT (test code = 777-3) See_Comment [Automated messa ge] The system which generated this result transmitted reference range: 150 - 328 10*3/?L. The reference range was not used to interpret this result as normal/abnormal. MPV (test code = 16054-7) 11.5 fL 9.8-13.0 NRBC/100 WBC (test code = 1781094664) See_Comment [Automated [employer] ssage] The system which generated this result transmitted reference range: 0.0 - 10.0 /100 WBCs. The reference range was not used to interpret this result as normal/abnormal. NRBC x10^3 (test code = 9108835500) <0.01 See_Comment [Automated Reach Prosa [employer]] The system which generated this result transmitted reference range: 10*3/?L. The reference range was not used to interpret this result as normal/abnormal. GRAN MAT (NEUT) % (test code = 770-8) 78.4 % IMM GRAN % (test code = 1005067101) 0.50 % LYMPH % (test code = 736-9) 9.5 % MONO % (test code = 5905-5) 11.0 % EOS % (test code = 713-8) 0.3 % BASO % (test code = 706-2) 0.3 % GRAN MAT x10^3(ANC) (test code = 0839010924) 9.11 10*3/uL 1.99-6.95 H IMM GRAN x10^3 (test code = 1335320026) 0.06 10*3/uL 0.00-0.06 LYMPH x10^3 (test code = 731-0) 1.10 10*3/uL 1.09-3.23 MONO x10^3 (test code = 742-7) 1.28 10*3/uL 0.36-1.02 H EOS x10^3 (test code = 711-2) 0.04 10*3/uL 0.06-0.53 L BASO x10^3 (test code = 704-7) 0.04 10*3/uL 0.01-0.09 Lab Interpretation (test code = 23784-4) [facility]normal [facility] ClinicsTroponin [id number] 00:50:12* Test Item Value Reference Range Interpretation Comments TROPONIN I (test code = 8981817247) 0.007 ng/mL See_Comment [Automated message] The system [...] of biotin. Lab Interpretation (test code = 24192-5) Normal [facility]icsN-TERMINAL [id number] 00:50:12* Test Item Value Reference Range Interpretation Comme nts NT-proBNP (test code = 8747341381) 1120 pg/mL See_Comment H [Automated message] The system which generated this result transmitted reference range: <=125. The reference range was not used to interpret this result as normal/abnormal. NEYMAR (test code = NEYMAR) Biotin has been reported to cause a negative bias, interpret results relative to patient's use of biotin. Lab Interpretation (test code = 17033-0) Abnormal [facility]icsB[facility] (NA, K, CL, CO2, GLUCOSE, BUN, CREATININE, CA)2022-04-29 00:39:11* Test Item Value Reference Range Interpretation Comme nts NA (test code = 6437084783) 150 mmol/L 135-145 H K (test code = 6684166076) 4.0 mmol/L 3.5-5.0 CL (test code = 5076804290) 117 mmol/L 98-108 H CO2 TOTAL (test code = 1720224494) 20 mmol/L 23-31 L AGAP (test code = 8459962618) 2-16 BUN (test code = 7408537643) 23 mg/dL 7-23 GLUCOSE (test code = 5629828755) 105 mg/dL 70-110 CREATININE (test code = 9733032335) 0.89 mg/dL 0.60-1.25 CALCIUM (test code = 0888955416) 8.9 mg/dL 8.6-10.6 eGFR (test code = 6146828181) mL/min/1.73m2 NEYMAR (test code = NEYMAR) Association [...] imaging tests). Lab Interpretation (test code = 84671-2) Abnormal [facility] ClinicsHepatic Function Panel (ALB, T.PRO, BILI T, BU/BC, ALT, AST, ALK PHOS)2022-04-29 00:39:11* Test Item Value Reference Range Interpretation Comme nts TOTAL BILI (test code = 7583655115) 1.3 mg/dL 0.1-1.1 H BILI UNCON (test code = 4297554761) 1.0 mg/dL 0.1-1.1 BILI CONJ (test code = 3969301534) 0.0 mg/dL 0.0-0.3 T PROTEIN (test code = 6352157590) 7.6 g/dL 6.3-8.2 ALBUMIN (test code = 3623502123) 4.2 g/dL 3.5-5.0 ALK PHOS (test code = 4634144013) 108 U/L 34-122 ALTv (test code = 1742-6) 25 U/L 5-50 AST(SGOT) (test code = 2979792605) 27 U/L 13-40 Lab Interpretation (test cod e = 97487-3) Abnormal [facility] ClinicsLipase [id number] 00:39:11* Test Item Value Reference Range Interpretation Comme nts LIPASE (test code = 5105117419) 67 U/L 0-220 Lab Interpretation (test cod e = 57558-2) Normal [facility] ClinicsCBC with Bekerrkssmbx3696-66-58 00:26:53* Test Item Value Reference Range Interpretation Comme nts WBC (test code = 6690-2) See_Comment [Automated [employer]] The system which generated this result transmitted reference range: 4.20 - 10.70 10*3/?L. The reference range was not used to interpret this result as normal/abnormal. RBC (test code = 789-8) See_Comment [Automated [employer]] The system which generated this result transmitted [...] 34.5 g/dL 31.2-35.0 RDW-SD (test code = 48795-5) 50.3 fL 38.5-51.6 RDW-CV (test code = 788-0) 14.6 % 12.1-15.4 PLT (test code = 777-3) See_Comment [Automated messa ge] The system which generated this result transmitted reference range: 150 - 328 10*3/?L. The reference range was not used to interpret this result as normal/abnormal. MPV (test code = 50496-2) 11.0 fL 9.8-13.0 NRBC/100 WBC (test code = 8159403410) See_Comment [Automated [employer] ssage] The system which generated this result transmitted reference range: 0.0 - 10.0 /100 WBCs. The reference range was not used to interpret this result as normal/abnormal. NRBC x10^3 (test code = 6207545185) <0.01 See_Comment [Automated [employer]] The system which generated this result transmitted reference range: 10*3/?L. The reference range was not used to interpret this result as normal/abnormal. GRAN MAT (NEUT) % (test code = 770-8) 65.4 % IMM GRAN % (test code = 9480691251) 0.20 % LYMPH % (test code = 736-9) 16.9 % MONO % (test code = 5905-5) 14.2 % EOS % (test code = 713-8) 2.6 % BASO % (test code = 706-2) 0.7 % GRAN MAT x10^3(ANC) (test code = 2066282108) 5.37 10*3/uL 1.99-6.95 IMM GRAN x10^3 (test code = [id number]) <0.03 0.00-0.06 LYMPH x10^3 (test code = 731-0) 1.39 10*3/uL 1.09-3.23 MONO x10^3 (test code = 742-7) 1.17 10*3/uL 0.36-1.02 H EOS x10^3 (test code = 711-2) 0.21 10*3/uL 0.06-0.53 BASO x10^3 (test code = 704-7) 0.06 10*3/uL 0.01-0.09 Lab Interpretation (test code = 51487-4) Abnormal [facility] Notes Date/Time Note Provider Source 2023-07-13 09:00:10 Formatting of this n ote might be different from the original. I contacted pt on 07/13/23 to schedule EP appt and echo -- pt is scheduled on 08/05/23. T Naseem Hsu [facility] 2023-07-13 08:43:22 Formatting of this n ote might be different from the original. This case, recommended EP evaluation for ILR placement. Please also plan for echocardiogram on the same day as the EP visit. Referral placed. Please schedule [facility] 2023-07-12 16:11:50 Formatting of this n ote might be different from the original. Spoke with nursing at the [facility] [phone] . They are able to do the monitors but stated that the patient has frequent moments of belligerence and pulls everything off. They do not think he will agree to wearing it. Routed to Dr Lamb for advice Elisha Navarrete RN [facility] 2023-07-12 14:43:57 Formatting of this n ote might be different from the original. Patient is currently in [facility]. Patient with history of atrial fibrillation along with syncopal episodes. Please reach out to the nursing cook supervisor [facility] to see if we can do 30-day event monitor. If so, we need to place the monitor. Orders placed. [facility] 2023-07-12 14:43:51 Formatting of this n ote might be different from the original. ----- Message from Naa Lamb MD sent at 06/22/2023 12:44 PM CDT ----- Reach to [facility] to see if they can do a 30-day event monitor. [facility]"
[2025-06-15] MEDS ORDERED: ZIPRASIDONE MESYLA 20 MG/VIAL IM ONE (01:44)
[2025-06-15] MEDS ORDERED: WATER FOR INJ,STERILE 10 ML ONE (01:45)
[2025-06-15] MEDS ORDERED: NACHLORIDE 0.45% 1,000 ML IV ONE (02:11)
[2025-06-15 02:16] LABS: PT Prothrombin Time 16.3 SECONDS (10-13.0); Protime INR 1.46
[2025-06-15 02:17] LABS: Absolute Lymphocytes (CBC) 2.4 K/uL (0.7-4.9); Hematocrit 50.1 % (39.6-49.0); Hemoglobin 16.5 g/dL (13.6-17.9); MCH 32.3 pg (27.0-35.0); MCHC 32.9 g/dL (32.0-36.0); MCV 98.3 fL (80-100); MPV 11.5 fL (7.6-11.3); Nucleated RBC Absolute Count 0.0 (0-0); Nucleated Red Blood Cells % 0.0 % (0-0); RBC Red Blood Cell Count 5.09 M/uL (4.33-5.43); White Blood Count 8.60 thou/uL (4.3-10.9)
[2025-06-15 02:35] LABS: ALT/SGPT 36.0 U/L (16-61); AST/SGOT 17.0 U/L (15-37); Albumin 3.5 g/dL (3.4-5.0); Albumin/Globulin Ratio 0.8 (1.1-1.8); Alkaline Phosphatase 184.0 U/L (45-117); Anion Gap 3.3 mEq/L (5.0-15.0); BUN Blood Urea Nitrogen 32.0 mg/dL (7-18); Bilirubin Indirect, Calculated 0.6 mg/dL (0.2-0.8); Globulin 4.6 g/dL (2.3-3.5); Glucose Level 73.0 mg/dL (74-106); Magnesium 2.5 mg/dL (1.6-2.4); NT PRO-BNP 623.0 pg/mL (<125); Potassium 3.3 mEq/L (3.5-5.1); Troponin High Sensitivity 53.7 pg/mL (<58.9)
--- NOTE | 2025-06-15 05:10 | EDPHYS ---
Physician Documentation [facility] Name: Donald Herron Age: 74 yrs Sex: Male : 1950 Arrival Date: 06/15/2025 Time: 01:24 Bed 19 Private MD: ED Physician Marcello Davidson HPI: 06/15 01:45 This 74 yrs old Male presents to ER via Unassigned with complaints of General Weakness cp and Elevated Serum Sodium. 01:45 general weakness. Onset: The symptoms/episode began/occurred at an unknown time. cp 01:45 Unable to obtain history due to patient's PMHX significant for Alzheimer's disease. cp Historical: - Allergies: 01:52 Zofran; tb4 - Home Meds: 01:52 acetaminophen-codeine 300-30 mg Oral tablet [Active]; amlodipine 10 mg tablet [Active]; tb4 carvedilol 6.25 mg Oral tablet [Active]; Depakote ER 250 mg Oral Tablet [Active]; mirtazapine 7.5 mg Oral tablet [Active]; Eliquis 5 mg Oral tablet [Active]; clonidine HCl 0.1 mg Oral tablet [Active]; atorvastatin 40 mg Oral tablet [Active]; Trelegy Ellipta 200-62.5-25 mcg inhalation Blister [Active]; potassium chloride 10 mEq Oral tablet [Active]; lidoderm patch [Active]; aspirin 81 mg Oral tablet [Active]; multivitamin with minerals-folic acid-lycopene oral [Active]; - PMHx: 01:52 Alzheimer's disease; Asthma; Atrial fibrillation; GERD; osteoarthritis; syncope; TIA; tb4 - PSHx: 01:52 Hip surgery; tb4 - Immunization history:: Adult Immunizations unknown. - Infectious Disease History:: Denies. - Social history:: Smoking status: Patient reports the use of cigarette tobacco products. ROS: 01:50 Constitutional: Negative for fever, cp 01:50 Cardiovascular: Negative for chest pain, 01:50 Abdomen/GI: Negative for abdominal pain, vomiting, diarrhea, 01:50 Neuro: Positive for weakness, Negative for altered mental status, 06:05 Constitutional: Positive for electrolyte imbalance positive for agitation. sp4 Exam: 01:52 Head/Face: Normocephalic, atraumatic. cp 01:52 Constitutional: The patient appears alert, awake, non-diaphoretic, non-toxic, well developed, frail, 01:52 Eyes: Pupils: equal, round, and reactive to light and accomodation, Conjunctiva: normal, no exudate, no injection, Sclera: no appreciated abnormality, Lids and lashes: appear normal, bilaterally, :52 ENT: External ear(s): are unremarkable, Nose: is normal, Mouth: Lips: dry, Oral mucosa: dry, Posterior pharynx: Airway: no evidence of obstruction, patent, :52 Chest/axilla: Inspection: normal, :52 ECG was reviewed by the Attending Physician. 01:52 Respiratory: the patient does not display signs of respiratory distress, Respirations: normal, no use of accessory muscles, no retractions, labored breathing, is not present, Breath sounds: are clear throughout, no decreased breath sounds, no wheezing, :52 Abdomen/GI: Inspection: abdomen appears normal, Palpation: abdomen is soft and non-tender, in all quadrants, :52 Neuro: Orientation: Not oriented to person, place, situation, Vital Signs: 01:52 BP 120 / 84; Pulse 96; Resp 18; Pulse Ox 99% on R/A; Pain 0/10; tb4 03:17 BP 139 / 74; Pulse 79; Resp 20; Pulse Ox 100% on R/A; Pain 0/10; tb4 04:20 BP 141 / 79; Pulse 88; Resp 20; Pulse Ox 100% on R/A; Pain 0/10; tb4 05:30 BP 128 / 80; Pulse 89; Resp 20; Temp 97.3; Pulse Ox 100% on R/A; tb4 06:13 BP 134 / 88; Pulse 86; Resp 19; Pulse Ox 100% on R/A; Pain 0/10; tb4 01:52 Pain Scale: Adult tb4 03:17 Pain Scale: Adult tb4 04:20 Pain Scale: Adult tb4 06:13 Pain Scale: Adult tb4 [place] Coma Score: 06:05 Eye Response: spontaneous(4). Motor Response: localizes pain(5). Verbal Response: sp4 confused(4). Total: 13. MDM: 01:34 Medical Screening Exam initiated cp 02:10 Transition of care: After a detail discussion of the patient's case, care is cp transferred to Marcello Davidson MD. 04:59 ED course: COMPARISON: CTAbdomen Pelvis 01/06/2024 and XR Chest 09/11/2024 no image sp4 report only. FINDINGS: Artifacts: Beam hardening and motion artifact visualized particularly in the upper abdomen. CHEST: Lungs and pleural spaces: Mild dependent changes in the lungs. No consolidation or mass. No pleural effusion or pneumothorax. Heart: Cardiomegaly with minimal pericardial fluid. Coronary artery calcifications. ABDOMEN: Liver: Unremarkable. Gallbladder and bile ducts: Distended gallbladder without calcified stones visualized. No ductal dilation. Pancreas: Unremarkable. No ductal dilation. Spleen: Unremarkable. No splenomegaly. Adrenals: Unremarkable. No mass. Kidneys and ureters: No hydronephrosis or ureter stone. Stomach and bowel: Moderate stool throughout the colon with rectal distention. No evidence of colitis. Colonic diverticulosis. Stomach is not well distended. PELVIS: Appendix: The visualized appendix is normal. No pericecal inflammation to suggest acute appendicitis. Bladder: Bladder is unremarkable. No stones. Reproductive: Mildly enlarged prostate gland. CHEST, ABDOMEN and PELVIS: Intraperitoneal space: See above. Bones/joints: No acute vertebral fracture. Degenerative changes in the lumbar joints. No acute sternal fracture. No definite acute rib fracture. Left femoral neck screws. No acute fractures in the pelvis. No hip dislocation. Soft tissues: Unremarkable. Vasculature: See above. Lymph nodes: Unremarkable. No enlarged lymph nodes. IMPRESSION: 1. Beam hardening and motion artifact visualized particularly in the upper abdomen. 2. Distended gallbladder without calcified stones visualized. 3. Moderate stool throughout the colon with rectal distention. No evidence of colitis. 4. Colonic diverticulosis. 5. No acute findings in the chest. 6. Additional non-emergent findings as above. Electronically signed by: Renee Kim MD 06/15/2025 04:51. 05:03 ED course: COMPARISON: CT Head 01/15/2024. FINDINGS: Brain: Mild age related sp4 periventricular white matter microangiopathic changes. Cortical atrophy. No hemorrhage. Ventricles: Unremarkable. No ventriculomegaly. Bones/joints: Unremarkable. No acute skull fracture. Soft tissues: Unremarkable. Sinuses: Unremarkable as visualized. No acute sinusitis. Mastoid air cells: No significant mastoid fluid. IMPRESSION: No acute intracranial findings. No hemorrhage. . ED course: EXAM: XR Chest, 1 View CLINICAL HISTORY: The patient is 74 years old and is Male; Abnormal labs. TECHNIQUE: Single view of the chest. COMPARISON: No relevant prior studies available. FINDINGS: Lungs: 12 mm round opacity overlying the right lung base that may be a nipple shadow or pulmonary lesion. No fluid overload or consolidation. Pleural space: Unremarkable. No pneumothorax. Heart: Unremarkable. No cardiomegaly. Mediastinum: Unremarkable. Bones/joints: Degenerative changes in the right shoulder. No acute rib fracture. Upper abdomen: No free air in the visualized upper abdomen. IMPRESSION: 12 mm round opacity overlying the right lung base that may be a nipple shadow or pulmonary lesion. CT chest pending.. 05:09 Differential Diagnosis altered mental status, sepsis, flu. Data reviewed: vital signs, sp4 nurses notes, lab test result(s), cardiac enzymes, CBC, drug level(s), electrolytes, hepatic panel, urinalysis, EKG, radiologic studies, CT scan, plain films. Consideration of Admission/Observation Escalation of care including admission/observation considered. 06/15 01:44 Order name: Basic Metabolic Panel; Complete Time: 04:46 cp 06/15 01:44 Order name: CBC with Diff; Complete Time: 04:46 cp 06/15 01:44 Order name: LFT's; Complete Time: 04:46 cp 06/15 01:44 Order name: Magnesium; Complete Time: 04:46 cp 06/15 01:44 Order name: NT PRO-BNP; Complete Time: 04:46 cp 06/15 01:44 Order name: PT-INR; Complete Time: 04:46 cp 06/15 01:44 Order name: Troponin HS; Complete Time: 04:46 cp 06/15 01:44 Order name: UA Rfx Malcolm Cult if indicated cp 06/15 05:40 Order name: CBC with Automated Diff EDMS 06/15 05:40 Order name: CBC with Automated Diff EDMS 06/15 05:40 Order name: Comprehensive Metabolic Panel EDMS 06/15 05:40 Order name: Comprehensive Metabolic Panel EDMS 06/15 01:44 Order name: XRAY Chest (1 view) cp 06/15 01:49 Order name: CT Head Brain wo Cont cp 06/15 01:49 Order name: CT Chest Abdomen Pelvis W/O Contrast cp 06/15 05:40 Order name: CONS Physician Consult EDOH 06/15 06:05 Order name: EKG; Complete Time: 06:05 sp4 06/15 01:44 Order name: Cardiac monitoring; Complete Time: 02:09 cp 06/15 01:44 Order name: EKG - Nurse/Tech; Complete Time: 02:08 cp 06/15 01:44 Order name: IV Saline Lock; Complete Time: 02:08 cp 06/15 01:44 Order name: Labs collected and sent; Complete Time: 02:09 cp 06/15 01:44 Order name: O2 Per Protocol; Complete Time: 02:09 cp 06/15 01:44 Order name: O2 Sat Monitoring; Complete Time: 02:09 cp 06/15 06:05 Order name: EKG - Nurse/Tech; Complete Time: 06:42 sp4 EC:52 Rate is 87 beats/min. Rhythm is irregular. QRS interval is prolonged at 104 msec. QT cp interval is normal. Interpreted by me. Reviewed by me. Administered Medications: 02:08 Drug: Geodon IM 20 mg IM once Route: IM; Site: right deltoid; tb4 02:46 Follow up: Response: No adverse reaction; Anxiety decreased; RASS: Alert and Calm (0) tb4 02:46 Drug: NS IV 0.45 % 1000 ml IV at 500 ml/hr once Route: IV; Rate: 500 ml/hr; Site: left tb4 antecubital; 04:31 Follow up: Response: No adverse reaction; IV Status: Completed infusion tb4 05:49 Drug: NS IV 0.45 % 1000 ml IV at 125 ml/hr continuous Route: IV; Rate: 125 ml/hr; Site: tb4 left antecubital; 06:42 Follow up: Sent up stairs with patient. tb4 Disposition: 05:07 Co-signature as Attending Physician, Marcello Davidson MD I agree with the assessment sp4 and plan of care. I reviewed the patient's care provided by Advanced Practice Provider \T\ agree w/ the diagnosis \T\ care plan. I personally saw the pt \T\ performed a substantive portion of the visit, incldng all aspects of the (History/Exam/Medical Decision Making). Disposition Summary: 06/15/25 05:09 Hospitalization Ordered Notes: Hospitalization Status: Inpatient Admission sp4 Provider: Mamadou Londono sp4 Condition: Fair sp4 Problem: new sp4 Symptoms: have improved sp4 Bed/Room Type: Standard sp4 Location: Telemetry/MedSurg (Inpatient)(06/15/25 05:47) Room Assignment: 209(06/15/25 05:47) Diagnosis - Hyperosmolality and hypernatremia sp4 - Hypokalemia sp4 - Hyperactive delirium sp4 Forms: - Medication Reconciliation Form sp4 - SBAR form sp4 - Leadership Thank You Letter sp4 Critical care time excluding procedures: 05:07 Critical care time: Bedside Care: 36 minutes, Consultation: 12 minutes, Family sp4 Intervention: 12 minutes. Total time: 60 minutes Signatures: Dispatcher [employer] EDMS Rosa Garcia RN RN Leopoldo Goldsmith PA-C PA-C cp Potepalov, Sergey, MD MD sp4 Carey Hodges RN RN tb4 Corrections: (The following items were deleted from the chart) 01:44 01:44 Chest Single View+RAD.RAD.BRZ ordered. EDMS EDMS 01:50 01:50 Head Brain Wo Cont+CT.RAD.BRZ ordered. EDMS EDMS 01:50 01:50 Chest Abdomen Pelvis Wo Con+CT.RAD.BRZ ordered. EDMS EDMS 01:52 01:50 This 74 yrs old Male presents to ER via Unassigned with complaints of General cp Weakness and Elevated Serum Sodium. cp 04:23 04:22 LP Consents ordered. sp4 al5 04:23 04:22 LP Setup ordered. sp4 al5 04:55 04:22 SPINAL FLUID PROFILE+LAB.LAB.BRZ ordered. EDMS EDMS 04:57 04:22 CSF Culture+BA.LAB.BRZ ordered. EDMS EDMS 04:57 04:22 FLUID CELL COUNT,BODY+H.LAB.BRZ ordered. EDMS EDMS 05:47 05:09 Intensive Care Unit sp4 kl 05:47 05:09 sp4 kl
--- NOTE | 2025-06-15 05:10 | ER ---
Nurse's Notes [facility] Name: Donald Herron Age: 74 yrs Sex: Male : 1950 Arrival Date: 06/15/2025 Time: 01:24 Bed 19 Private MD: Diagnosis: Hyperosmolality and hypernatremia;Hypokalemia;Hyperactive delirium Presentation: 06/15 01:18 Chief complaint: EMS states: [facility] report abnormal sodium results. (Na 162). tb4 Labs done due to generalized weekness. Coronavirus screen: At this time, the client does not indicate any symptoms associated with coronavirus-19. Ebola Screen: No symptoms or risks identified at this time. Initial Sepsis Screen: Does the patient meet any 2 criteria? No. Patient's initial sepsis screen is negative. Does the patient have a suspected source of infection? No. Patient's initial sepsis screen is negative. Risk Assessment: Do you want to hurt yourself or someone else? Patient reports no desire to harm self or others. Onset of symptoms is unknown. 01:18 Method Of Arrival: EMS: [facility] 01:18 Acuity: [facility] 3 tb4 Triage Assessment: 01:52 General: Appears uncomfortable, Behavior is cooperative. Pain: Denies pain. Neuro: tb4 Level of Consciousness is awake, alert, obeys commands, Oriented to person, place, Open Developer Operator are equal bilaterally Moves all extremities. Gait is unsteady, Patient uses a wheel chair. Speech is normal, Facial symmetry appears normal. Respiratory: Airway is patent Respiratory effort is even, unlabored, Respiratory pattern is regular, symmetrical. GI: No signs and/or symptoms were reported involving the gastrointestinal system. : No signs and/or symptoms were reported regarding the genitourinary system. Derm: Skin is intact, is thin, with poor turgor Skin is dry, Skin is normal. Musculoskeletal: Circulation, motion, and sensation intact. Range of motion: intact in all extremities. Historical: - Allergies: : Zofran; tb4 - Home Meds: 01:52 acetaminophen-codeine 300-30 mg Oral tablet [Active]; amlodipine 10 mg tablet [Active]; tb4 carvedilol 6.25 mg Oral tablet [Active]; Depakote ER 250 mg Oral Tablet [Active]; mirtazapine 7.5 mg Oral tablet [Active]; Eliquis 5 mg Oral tablet [Active]; clonidine HCl 0.1 mg Oral tablet [Active]; atorvastatin 40 mg Oral tablet [Active]; Trelegy Ellipta 200-62.5-25 mcg inhalation Blister [Active]; potassium chloride 10 mEq Oral tablet [Active]; lidoderm patch [Active]; aspirin 81 mg Oral tablet [Active]; multivitamin with minerals-folic acid-lycopene oral [Active]; - PMHx: 01:52 Alzheimer's disease; Asthma; Atrial fibrillation; GERD; osteoarthritis; syncope; TIA; tb4 - PSHx: 01:52 Hip surgery; tb4 - Immunization history:: Adult Immunizations unknown. - Infectious Disease History:: Denies. - Social history:: Smoking status: Patient reports the use of cigarette tobacco products. Screenin:18 [facility] ED Fall Risk Assessment (Adult) History of falling in the last 3 months, tb4 including since admission No falls in past 3 months (0 pts) Confusion or Disorientation No (0 pts) Intoxicated or Sedated No (0 pts) Impaired Gait Yes (1 pt) Mobility Assist Device Used Yes (1 pt) Altered Elimination Yes (1 pt) Score/Fall Risk Level 3 or more points = High Risk Maintained a safe environment. Abuse screen: Denies threats or abuse. Denies injuries from another. Nutritional screening: No deficits noted. Tuberculosis screening: No symptoms or risk factors identified. Assessment: 02:22 General: Appears in no apparent distress. Behavior is agitated, combative. Pain: Denies tb4 pain. Neuro: Level of Consciousness is awake, alert, confused, Oriented to person, place, Open Developer Operator are equal bilaterally Moves all extremities. Full function Gait is unsteady, use wheel chair. Speech is normal, Facial symmetry appears normal. Respiratory: Airway is patent Respiratory effort is even, unlabored, Respiratory pattern is regular, symmetrical. GI: No signs and/or symptoms were reported involving the gastrointestinal system. : No signs and/or symptoms were reported regarding the genitourinary system. incontinence. EENT: No signs and/or symptoms were reported regarding the EENT system. Derm: Skin is intact, is thin, with poor turgor Skin is dry, Skin is normal, Skin temperature is warm. Musculoskeletal: Range of motion: intact in all extremities. 04:30 Reassessment: Patient denies pain at this time. General: Appears in no apparent tb4 distress. comfortable, Behavior is calm, cooperative. Pain: Denies pain. Neuro: Level of Consciousness is awake, alert, obeys commands, confused, Oriented to person, place, Open Developer Operator are equal bilaterally Moves all extremities. Full function. Respiratory: Airway is patent Respiratory effort is even, unlabored, Respiratory pattern is regular, symmetrical. Vital Signs: 01:52 BP 120 / 84; Pulse 96; Resp 18; Pulse Ox 99% on R/A; Pain 0/10; tb4 03:17 BP 139 / 74; Pulse 79; Resp 20; Pulse Ox 100% on R/A; Pain 0/10; tb4 04:20 BP 141 / 79; Pulse 88; Resp 20; Pulse Ox 100% on R/A; Pain 0/10; tb4 05:30 BP 128 / 80; Pulse 89; Resp 20; Temp 97.3; Pulse Ox 100% on R/A; tb4 06:13 BP 134 / 88; Pulse 86; Resp 19; Pulse Ox 100% on R/A; Pain 0/10; tb4 01:52 Pain Scale: Adult tb4 03:17 Pain Scale: Adult tb4 04:20 Pain Scale: Adult tb4 06:13 Pain Scale: Adult tb4 [place] Coma Score: 06:05 Eye Response: spontaneous(4). Motor Response: localizes pain(5). Verbal Response: sp4 confused(4). Total: 13. ED Course: 01:30 Patient arrived in ED. rv1 01:31 Leopoldo Pascual [facility]. cp 01:31 Marcello Davidson MD is Attending Physician. cp 01:52 Triage completed. tb4 01:52 Arm band placed on left wrist. EKG completed in triage. Results shown to MD. tb4 01:57 Radiology exam delayed due to pt just given meds, requested to return in 20-30 min to md2 give medications time. 02:18 Patient has correct armband on for positive identification. Placed in gown. Bed in low tb4 position. Call light in reach. Side rails up X 1. Side rails up X2. Client placed on continuous cardiac and pulse oximetry monitoring. NIBP monitoring applied. street sprinkler on. Pulse ox on. Door closed. Lights dimmed. 02:18 Initial lab(s) drawn, by me, sent to lab. EKG done, by ED staff, CT Scan. tb4 02:22 No provider procedures requiring assistance completed. Inserted saline lock: 20 gauge tb4 in left antecubital area, using aseptic technique. Blood collected. Flushed with 10 mL NS. 02:32 CT Head Brain wo Cont In Process Unspecified. EDMS 02:32 CT Chest Abdomen Pelvis W/O Contrast In Process Unspecified. EDMS 02:35 XRAY Chest (1 view) In Process Unspecified. EDMS 05:07 Mamadou Londono MD is Hospitalizing Provider. sp4 Administered Medications: 02:08 Drug: Geodon IM 20 mg IM once Route: IM; Site: right deltoid; tb4 02:46 Follow up: Response: No adverse reaction; Anxiety decreased; RASS: Alert and Calm (0) tb4 02:46 Drug: NS IV 0.45 % 1000 ml IV at 500 ml/hr once Route: IV; Rate: 500 ml/hr; Site: left tb4 antecubital; 04:31 Follow up: Response: No adverse reaction; IV Status: Completed infusion tb4 05:49 Drug: NS IV 0.45 % 1000 ml IV at 125 ml/hr continuous Route: IV; Rate: 125 ml/hr; Site: tb4 left antecubital; 06:42 Follow up: Sent up stairs with patient. tb4 Medication: 02:08 VIS not applicable for this client. tb4 Intake: Outcome: 05:09 Decision to Hospitalize by Provider. sp4 06:43 Patient left the ED. tb4 Signatures: Dispatcher [employer] EDDE Leopoldo Pascual PA-C PA-C cp [place], Mikaela md2 Aniya Hernández Sergey, MD MD sp4 Carey Hodges, RN RN tb4
--- NOTE | 2025-06-15 05:33 | P.HP ---
Certification for Inpatient Patient admitted to: Inpatient With expected LOS: >2 Midnights Practitioner: I am a practitioner with admitting privileges, knowledge of patient current condition, hospital course, and medical plan of care. Services: Services provided to patient in accordance with Admission requirements found in Title 42 Section 412.3 of the Code of Federal Regulations Patient History Date of Service: 06/15/25 Reason for admission: Hypernatremia History of Present Illness: 74-year-old man with a past medical history significant for dementia, COPD, Hypertension, hyperlipidemia, atrial fibrillation, GERD, osteoarthritis, CVA/TIA presented to the emergency department with elevated Sodium level and altered mental status. Patient is confused and could not offer any history hence most of the history is obtained from the chart review and also talking to the ER physician. No fever or chills. No chest pain or shortness of breath. Patient was assessed in the ER and was admitted for further management of hypernatremia and generalized weakness and altered mental status Allergies ondansetron [From Zofran] Allergy (Verified 01/06/24 23:47) Hives/Rash Home medications list reviewed: Yes Home Medications: Apixaban [Eliquis] 5 mg PO BID 04/17/23 Aspirin [Aspirin EC 81 MG] 81 mg PO DAILY 04/17/23 Divalproex ER [Depakote *ER] 250 mg PO BID 04/17/23 Acetaminophen [Tylenol] 650 mg PO Q6HP PRN 10/27/23 Amlodipine [Norvasc*] 10 mg PO DAILY 10/27/23 Fluticasone/Umeclidin/Vilanter [Trelegy Ellipta 200-62.5-25] 1 each IH DAILY 10/27/23 Lidocaine 4% Patch [Lidoderm 5% Patch*] 1 patch TD Q12H 10/27/23 carvediloL [Carvedilol] 6.25 mg PO BID 10/27/23 cloNIDine HCL [Clonidine HCl] 0.1 mg PO Q8HP PRN 10/27/23 Atorvastatin Calcium [Lipitor] 40 mg PO BEDTIME tab 11/03/23 Mirtazapine 7.5 mg PO BEDTIME 01/06/24 Multivitamin with Minerals [Multivitamins with Minerals] 1 each PO DAILY 01/06/24 Potassium Chloride 10 meq PO DAILY 01/06/24 Ensure High Protein 237 ml PO BIDAC #60 can 01/16/24 Duarte [Duarte*] 1 pkt PO BID #60 packet 01/16/24 - Past Medical/Surgical History Diabetic: No Past Medical History: Reviewed- Non-Contributory -: TIA -: Atrial fibrillation -: Dementia -: HTN -: HLD -: Hx DEBORAH (Dr. Whitley/ Dr. Monroy) -: cognitive communication deficit -: hypothyroidism -: GERD -: osteoarthritis -: metabolic encephalopathy Past Surgical History: Reviewed- Non-Contributory -: hip sx Psychosocial/ Personal History: Resident of [facility] - Social History Smoking Status: Never smoker Alcohol use: No CD- Drugs: No Caffeine use: No Review of Systems is unable to be obtained Physical Examination - Vital Signs Temperature: 97.8 F Blood Pressure: 136/70 Pulse: 88 Respirations: 18 Pulse Ox (%): 94 - Physical Exam General: Confused HEENT: Atraumatic, Normocephalic Neck: Supple Respiratory: Clear to auscultation bilaterally, Normal air movement Cardiovascular: Regular rate/rhythm, Normal S1 S2 Capillary refill: >2 Seconds Gastrointestinal: Soft and benign, Non-distended, W/out hepatosplenomegaly Musculoskeletal: No clubbing, No swelling Integumentary: No rashes Neurological: Other (Drowsy but arousable, moves all the limbs) Lymphatics: No axilla or inguinal lymphadenopathy - Studies Laboratory Data (last 24 hrs) 06/15/25 06/15/25 06/15/25 01:15 01:15 01:15 WBC 8.60 Hgb 16.5 Hct 50.1 H Plt Count 175 PT 16.3 H INR 1.46 Sodium 162 H* Potassium 3.3 L BUN 32 H Creatinine 0.97 Glucose 73 L Magnesium 2.5 H Total Bilirubin 0.8 AST 17 ALT 36 Alkaline Phosphatase 184 H Assessment and Plan - Plan Hypernatremia: Started on D5 Nephrology consulted Monitor closely in telemetry Avoid nephrotoxic medications Acute encephalopathy metabolic CT head negative for acute change Will get a UA Altered mental statu with Hx of dementia Alert, but not oriented Continue with IV fluids Hypertension Antihypertensives titrated Continue home medications and titrate as needed Hyperlipidemia Continue statin Hypokalemia Replace potassium Electrolytes monitor and replace accordingly History of dementia COPD Continue home medications GI/DVT prophylaxis Advanced directive full code Discharge Plan: Skilled Nursing Plan to discharge in: 48 Hours - Advance Directives Does patient have a Living Will: Yes Does patient have a Durable POA for Healthcare: No - Code Status/Comfort Care Code Status: Full Code Time Spent Managing Pts Care (In Minutes): 48
[2025-06-15] MEDS: NACHLORIDE 0.45% 1,000 ML IV ONE (05:34)
[2025-06-15] MEDS ORDERED: ACETAMINOPHEN 325 MG TABLET PO PRN (05:36)
[2025-06-15] MEDS ORDERED: ONDANSETRON 4 MG/2 ML VIAL IV PRN (05:36)
[2025-06-15] MEDS: D5W 1,000 ML IV SCH ×2 (06:39→10:59)
--- NOTE | 2025-06-15 07:11 | RAD REPORT ---
EXAM: XR Chest, 1 View CLINICAL HISTORY: The patient is 74 years old and is Male; Abnormal labs. TECHNIQUE: Single view of the chest. COMPARISON: No relevant prior studies available. FINDINGS: Lungs: 12 mm round opacity overlying the right lung base that may be a nipple shadow or pulmonary lesion. No fluid overload or consolidation. Pleural space: Unremarkable. No pneumothorax. Heart: Unremarkable. No cardiomegaly. Mediastinum: Unremarkable. Bones/joints: Degenerative changes in the right shoulder. No acute rib fracture. Upper abdomen: No free air in the visualized upper abdomen. IMPRESSION: 12 mm round opacity overlying the right lung base that may be a nipple shadow or pulmonary lesion. CT chest pending. Electronically signed by: Renee Kim MD 06/15/2025 04:39 AM CDT V2 Due to temporary technical issues with the PACS/Ideagen reporting system, reports are being parvin d by the in-house radiologist without review as a courtesy to ensure prompt reporting. The interpreting radiologist is fully responsible for the content of the report. Transcribed Date/Time: 06/15/2025 7:11 AM
--- NOTE | 2025-06-15 08:43 | RAD REPORT ---
EXAM: CT Head Without Intravenous Contrast CLINICAL HISTORY: The patient is 74 years old and is Male; Abnormal labs. TECHNIQUE: Axial computed tomography images of the head/brain without intravenous contrast. Sagit karly and coronal reformatted images were created and reviewed. This CT exam was performed using one or more of the following dose reduction techniques: automated exposure control, adjustment of t he mA and/or kV according to patient size, and/or use of iterative reconstruction technique. COMPARISON: CT Head 01/15/2024. FINDINGS: Brain: Mild age related periventricular white matter microangiopathic changes. Cortical atrophy. No hemorrhage. Ventricles: Unremarkable. No ventriculomegaly. Bones/joints: Unremarkable. No acute skull fracture. Soft tissues: Unremarkable. Sinuses: Unremarkable as visualized. No acute sinusitis. Mastoid air cells: No significant mastoid fluid. IMPRESSION: No acute intracranial findings. No hemorrhage. Electronically signed by: Renee Kim MD 06/15/2025 04:41 AM CDT RP V2 Due to temporary technical issues with the PACS/[employer] reporting system, reports are being parvin d by the in-house radiologist without review as a courtesy to ensure prompt reporting the interpreting radiologist is fully responsible for the content of the report. Transcribed Date/Time: 06/15/2025 8:43 AM
--- NOTE | 2025-06-15 08:44 | RAD REPORT ---
EXAM: CT Chest, Abdomen and Pelvis Without Intravenous Contrast CLINICAL HISTORY: The patient is 74 years old and is Male; Abnormal labs. TECHNIQUE: Axial computed tomography images of the chest, abdomen and pelvis without intravenous co ntrast. Sagittal and coronal reformatted images were created and reviewed. This CT exam was performed using one or more of the following dose reduction techniques: automated exposure control, adjustment of the mA and/or kV according to patient size, and/or use of iterative reconstruction technique. COMPARISON: CT Abdomen Pelvis 01/06/2024 and XR Chest 09/11/2024 no image report only. FINDINGS: Artifacts: Beam hardening and motion artifact visualized particularly in the upper abdomen. CHEST: Lungs and pleural spaces: Mild dependent changes in the lungs. No consolidation or mass. No pleur al effusion or pneumothorax. Heart: Cardiomegaly with minimal pericardial fluid. Coronary artery calcifications. ABDOMEN: Liver: Unremarkable. Gallbladder and bile ducts: Distended gallbladder without calcified stones visualized. No ductal dilation. Pancreas: Unremarkable. No ductal dilation. Spleen: Unremarkable. No splenomegaly. Adrenals: Unremarkable. No mass. Kidneys and ureters: No hydronephrosis or ureter stone. Stomach and bowel: Moderate stool throughout the colon with rectal distention. No evidence of col itis. Colonic diverticulosis. Stomach is not well distended. PELVIS: Appendix: The visualized appendix is normal. No pericecal inflammation to suggest acute appendici tis. Bladder: Bladder is unremarkable. No stones. Reproductive: Mildly enlarged prostate gland. CHEST, ABDOMEN and PELVIS: Intraperitoneal space: See above. Bones/joints: No acute vertebral fracture. Degenerative changes in the lumbar joints. No acute st ernal fracture. No definite acute rib fracture. Left femoral neck screws. No acute fractures in the pelvis. No hip dislocation. Soft tissues: Unremarkable. Vasculature: See above. Lymph nodes: Unremarkable. No enlarged lymph nodes. IMPRESSION: 1. Beam hardening and motion artifact visualized particularly in the upper abdomen. 2. Distended gallbladder without calcified stones visualized. 3. Moderate stool throughout the colon with rectal distention. No evidence of colitis. 4. Colonic diverticulosis. 5. No acute findings in the chest. 6. Additional non-emergent findings as above. Electronically signed by: Renee Kim MD 06/15/2025 04:51 AM CDT RP V2 Due to temporary technical issues with the PACS/Powerscribe reporting system, reports are being parvin d by the in-house radiologist without review as a courtesy to ensure prompt reporting the interpreting radiologist is fully responsible for the content of the report. Transcribed Date/Time: 06/15/2025 8:44 AM
[2025-06-15 10:52] VITALS: BMI 24.3
[2025-06-15] MEDS: KCL 20 MEQ/100 mL IVPB 20 MEQ/100 ML BAG IV SCH ×2 (10:54→14:45)
--- NOTE | 2025-06-15 11:19 | P.CNS ---
Date of Consult: 06/15/25 Reason for Consult: Hypernatremia Requesting Physician: Bruno Londono Chief Complaint: Hypernatremia History of Present Illness: Pls note history obtained largely through chart review as pt is altered and unclear baseline.There are reports of underlying dementia, cortical atrophy reported no head CT, Hypertension on BP meds, hyperlipidemia, and other who presented to the ER with AMS and confusion and was found to have severe hypernatremia.. Allergies ondansetron [From Zofran] Allergy (Verified 01/06/24 23:47) Hives/Rash Home Medications: Apixaban [Eliquis] 5 mg PO BID 04/17/23 Aspirin [Aspirin EC 81 MG] 81 mg PO DAILY 04/17/23 Divalproex ER [Depakote *ER] 250 mg PO BID 04/17/23 Acetaminophen [Tylenol] 650 mg PO Q6HP PRN 10/27/23 Amlodipine [Norvasc*] 10 mg PO DAILY 10/27/23 Fluticasone/Umeclidin/Vilanter [Trelegy Ellipta 200-62.5-25] 1 each IH DAILY 10/27/23 Lidocaine 4% Patch [Lidoderm 5% Patch*] 1 patch TD Q12H 10/27/23 carvediloL [Carvedilol] 6.25 mg PO BID 10/27/23 cloNIDine HCL [Clonidine HCl] 0.1 mg PO Q8HP PRN 10/27/23 Atorvastatin Calcium [Lipitor] 40 mg PO BEDTIME tab 11/03/23 Mirtazapine 7.5 mg PO BEDTIME 01/06/24 Multivitamin with Minerals [Multivitamins with Minerals] 1 each PO DAILY 01/06/24 Potassium Chloride 10 meq PO DAILY 01/06/24 Ensure High Protein 237 ml PO BIDAC #60 can 01/16/24 Duarte [Duarte*] 1 pkt PO BID #60 packet 01/16/24 - Past Medical/Surgical History Diabetic: No -: TIA -: Atrial fibrillation -: Dementia -: HTN -: HLD -: Hx DEBORAH (Dr. Whitley/ Dr. Monroy) -: cognitive communication deficit -: hypothyroidism -: GERD -: osteoarthritis -: metabolic encephalopathy -: hip sx Psychosocial/ Personal History: Resident of [facility] - Social History Smoking Status: Unknown if ever smoked Alcohol use: No CD- Drugs: No Caffeine use: No Review of Systems is unable to be obtained Physical Examination Temp Pulse Resp BP Pulse Ox 97.5 F 86 16 153/86 H 98 06/15/25 08:00 06/15/25 08:00 06/15/25 08:00 06/15/25 08:00 06/15/25 08:00 General: Other (Elderly, frail, lethargic) HEENT: Atraumatic, Normocephalic, Other (dry oral mucosa, not on O2) Neck: Supple Respiratory: Normal air movement, Other (non tachypnec, b/l air entry without rhonchi) Cardiovascular: Other (non tachy, regular) Gastrointestinal: Soft and benign, Non-distended, No tenderness Musculoskeletal: Contractures, Other (muscle mass loss) Integumentary: No rashes, No tenderness/swelling, No warmth Neurological: Other (lethargic but opens eyes, tries to verbalize but not able to converse, mildly tremulous ) Laboratory Data (last 24 hrs) 06/15/25 06/15/25 06/15/25 01:15 01:15 01:15 WBC 8.60 Hgb 16.5 Hct 50.1 H Plt Count 175 PT 16.3 H INR 1.46 Sodium 162 H* Potassium 3.3 L BUN 32 H Creatinine 0.97 Glucose 73 L Magnesium 2.5 H Total Bilirubin 0.8 AST 17 ALT 36 Alkaline Phosphatase 184 H Conclusions/Impression: A/P) 1. Acute hypertonic hypernatremia presumably 2nd to impaired PO intake, no diuretics listed among home meds. Larger water deficit and based on calculations to lower Na by about 0.5 mmol/L/hr or less, will adjust D5W to 100 ml/hr 2. Will recheck chem panel 3. Hypokalemia in the setting of above -will replete with IV KCL, Mg > 2.0 4. Hx of Stage 1 DEBORAH in the past, currently Cr level within limits, although mildly higher than baseline due to dehdyration 5. Hypertensive disorder -trend BP range for now, resume BP meds as indicated
[2025-06-15 12:00] LABS: Anion Gap 15.4 mEq/L (5.0-15.0); BUN Blood Urea Nitrogen 28.0 mg/dL (7-18); Glucose Level 95.0 mg/dL (74-106); Potassium 3.4 mEq/L (3.5-5.1)
[2025-06-15 12:15] LABS: Sqamous Epithelial None Seen /HPF (None Seen); Urine Culture Reflex Order REFLEXED; Urine Microscopic Reflex YN ORDER UMIC
[2025-06-15] MEDS: POTASSIUM CL IV SCH (21:00)
[2025-06-15] MEDS: NA BICARB IV SCH (21:00)
[2025-06-15] MEDS: D5W IV SCH (21:00)
[2025-06-15] MEDS ORDERED: NA BICARB IV SCH (23:45)
[2025-06-15] MEDS ORDERED: POTASSIUM CL IV SCH (23:45)
[2025-06-15] MEDS ORDERED: D5W IV SCH (23:45)
[2025-06-16] MEDS: SODIUM BICARB 50 MEQ/50ML VIAL ONE (00:24)
[2025-06-16] MEDS: D5W 1,000 ML IV ONE (00:25)
[2025-06-16] MEDS: KCL 20 MEQ/100 mL IVPB 100 ML IV SCH (01:18)
[2025-06-16] MEDS: D5W 1,000 ML with NA BICARB 8.4% 50 MEQ IV SCH (01:19)
[2025-06-16 07:13] LABS: Absolute Lymphocytes (CBC) 2.3 K/uL (0.7-4.9); Hematocrit 39.8 % (39.6-49.0); Hemoglobin 13.2 g/dL (13.6-17.9); MCH 32.2 pg (27.0-35.0); MCHC 33.2 g/dL (32.0-36.0); MCV 97.1 fL (80-100); MPV 10.8 fL (7.6-11.3); Nucleated RBC Absolute Count 0.0 (0-0); Nucleated Red Blood Cells % 0.1 % (0-0); RBC Red Blood Cell Count 4.09 M/uL (4.33-5.43); White Blood Count 7.80 thou/uL (4.3-10.9)
[2025-06-16 07:39] LABS: ALT/SGPT 26.0 U/L (16-61); AST/SGOT 17.0 U/L (15-37); Albumin 2.5 g/dL (3.4-5.0); Albumin/Globulin Ratio 0.8 (1.1-1.8); Alkaline Phosphatase 123.0 U/L (45-117); Anion Gap 4.0 mEq/L (5.0-15.0); BUN Blood Urea Nitrogen 21.0 mg/dL (7-18); Globulin 3.2 g/dL (2.3-3.5); Glucose Level 100.0 mg/dL (74-106); Potassium 3.0 mEq/L (3.5-5.1)
[2025-06-16] MEDS: POTASSIUM CL SA 10 MEQ TAB PO ONE (09:10)
[2025-06-16] MEDS: D5W 1,000 ML IV SCH (11:29)
[2025-06-16 15:40] LABS: Anion Gap 7.4 mEq/L (5.0-15.0); BUN Blood Urea Nitrogen 18.0 mg/dL (7-18); Glucose Level 89.0 mg/dL (74-106); Potassium 3.4 mEq/L (3.5-5.1)
--- NOTE | 2025-06-16 16:16 | P.PN ---
Date of Service: 06/16/25 Subjective: Mentation improving. He is alert and oriented to person and place. He denies fevers and chills. He denies any pain Physical Examination - Vital Signs Temperature: 97.8 F Blood Pressure: 136/70 Pulse: 88 Respirations: 18 Pulse Ox (%): 94 - Physical Exam General: Alert and oriented x 2 HEENT: Atraumatic, Normocephalic Neck: Supple Respiratory: Clear to auscultation bilaterally, Normal air movement Cardiovascular: Regular rate/rhythm, Normal S1 S2 Capillary refill: >2 Seconds Gastrointestinal: Soft and benign, Non-distended, W/out hepatosplenomegaly Musculoskeletal: No clubbing, No swelling Integumentary: No rashes Neurological: Other (Drowsy but arousable, moves all the limbs) Lymphatics: No axilla or inguinal lymphadenopathy - Studies Laboratory Data (last 24 hrs) 06/15/25 06/15/25 06/15/25 01:15 01:15 01:15 WBC 8.60 Hgb 16.5 Hct 50.1 H Plt Count 175 PT 16.3 H INR 1.46 Sodium 162 H* Potassium 3.3 L BUN 32 H Creatinine 0.97 Glucose 73 L Magnesium 2.5 H Total Bilirubin 0.8 AST 17 ALT 36 Alkaline Phosphatase 184 H Assessment and Plan - Plan Hypernatremia: Started on D5, sodium now at 152 Nephrology recommendations appreciated Monitor closely in telemetry Avoid nephrotoxic medications Acute encephalopathy metabolic History of dementia Improving. Now holding conversations CT head negative for acute change Abnormal UA Start Rocephin Continue with IV fluids Hypertension Antihypertensives titrated Continue home medications and titrate as needed Hyperlipidemia Continue statin Hypokalemia Replace potassium Electrolytes monitor and replace accordingly History of dementia COPD Continue home medications GI/DVT prophylaxis Advanced directive full code Discharge Plan: Group Home Plan to discharge in: 48 Hours - Advance Directives Does patient have a Living Will: Yes Does patient have a Durable POA for Healthcare: No - Code Status/Comfort Care Code Status: Full Code Time spent on the encounter, including patient evaluation, history taking, physical exam, medical decision making, coordination of care, and documentation, was 35 minutes. Time includes direct [id number] interaction with the patient and indirect time spent reviewing records, ordering tests, and discussing the care plan.
[2025-06-16] MEDS: POTASSIUM 25 MEQ EFFERV TAB PO ONE (17:41)
[2025-06-17 00:50] VITALS: O2SAT 96
[2025-06-17 06:02] LABS: Anion Gap 4.3 mEq/L (5.0-15.0); BUN Blood Urea Nitrogen 16.0 mg/dL (7-18); Glucose Level 100.0 mg/dL (74-106); Potassium 3.3 mEq/L (3.5-5.1)
[2025-06-17] MEDS: POTASSIUM 25 MEQ EFFERV TAB PO ONE ×2 (06:31→15:45)
--- NOTE | 2025-06-17 07:15 | P.PN ---
Date of Service: 06/17/25 Subjective: Mentation improving. He is alert and oriented to person and place. He denies fevers and chills. He denies any pain Physical Examination - Vital Signs Temperature: 97.8 F Blood Pressure: 136/70 Pulse: 88 Respirations: 18 Pulse Ox (%): 94 - Physical Exam General: Alert and oriented x 2 HEENT: Atraumatic, Normocephalic Neck: Supple Respiratory: Clear to auscultation bilaterally, Normal air movement Cardiovascular: Regular rate/rhythm, Normal S1 S2 Capillary refill: >2 Seconds Gastrointestinal: Soft and benign, Non-distended, W/out hepatosplenomegaly Musculoskeletal: No clubbing, No swelling Integumentary: No rashes Neurological: Other (Drowsy but arousable, moves all the limbs) Lymphatics: No axilla or inguinal lymphadenopathy - Studies Laboratory Data (last 24 hrs) 06/15/25 06/15/25 06/15/25 01:15 01:15 01:15 WBC 8.60 Hgb 16.5 Hct 50.1 H Plt Count 175 PT 16.3 H INR 1.46 Sodium 162 H* Potassium 3.3 L BUN 32 H Creatinine 0.97 Glucose 73 L Magnesium 2.5 H Total Bilirubin 0.8 AST 17 ALT 36 Alkaline Phosphatase 184 H Assessment and Plan - Plan Hypernatremia: Sodium down to 149 Nephrology recommendations appreciated Monitor closely in telemetry Avoid nephrotoxic medications Acute encephalopathy metabolic History of dementia Improving. Now holding conversations CT head negative for acute change Abnormal UA Start Rocephin Continue with IV fluids Hypertension Antihypertensives titrated Continue home medications and titrate as needed Hyperlipidemia Continue statin Hypokalemia Replace potassium Electrolytes monitor and replace accordingly History of dementia COPD Continue home medications GI/DVT prophylaxis Advanced directive full code Discharge Plan: [facility] Plan to discharge in: 48 Hours - Advance Directives Does patient have a Living Will: Yes Does patient have a Durable POA for Healthcare: No - Code Status/Comfort Care Code Status: Full Code Time spent on the encounter, including patient evaluation, history taking, physical exam, medical decision making, coordination of care, and documentation, was 35 minutes. Time includes direct [id number] interaction with the patient and indirect time spent reviewing records, ordering tests, and discussing the care plan.
[2025-06-17 08:06] LABS: Absolute Lymphocytes (CBC) 1.9 K/uL (0.7-4.9); Hematocrit 40.3 % (39.6-49.0); Hemoglobin 13.3 g/dL (13.6-17.9); MCH 32.1 pg (27.0-35.0); MCHC 33.0 g/dL (32.0-36.0); MCV 97.2 fL (80-100); MPV 12.0 fL (7.6-11.3); Nucleated RBC Absolute Count 0.0 (0-0); Nucleated Red Blood Cells % 0.1 % (0-0); RBC Red Blood Cell Count 4.15 M/uL (4.33-5.43); White Blood Count 7.40 thou/uL (4.3-10.9)
[2025-06-17] MEDS: CEFTRIAXONE 1,000 MG in NA CHLORIDE 0.9% 50 ML IVPB SCH (08:15)
[2025-06-17] MEDS: CALCIUM CARB 500MG/VIT D 200 IU TAB PO SCH (20:47)
[2025-06-18] MEDS: D5W 1,000 ML IV SCH (01:30)
[2025-06-18 08:06] LABS: ALT/SGPT 26.0 U/L (16-61); AST/SGOT 11.0 U/L (15-37); Albumin 2.7 g/dL (3.4-5.0); Albumin/Globulin Ratio 0.8 (1.1-1.8); Alkaline Phosphatase 132.0 U/L (45-117); Anion Gap 7.9 mEq/L (5.0-15.0); BUN Blood Urea Nitrogen 10.0 mg/dL (7-18); Globulin 3.4 g/dL (2.3-3.5); Glucose Level 109.0 mg/dL (74-106); Potassium 3.9 mEq/L (3.5-5.1)
--- NOTE | 2025-06-18 13:43 | P.PN ---
Date of Service: 06/18/25 Subjective: Vital stable overnight. No new events. He denies fevers and chills. Physical Examination - Vital Signs Temperature: 97.8 F Blood Pressure: 136/70 Pulse: 88 Respirations: 18 Pulse Ox (%): 94 - Physical Exam General: Alert and oriented x 3 HEENT: Atraumatic, Normocephalic Neck: Supple Respiratory: Clear to auscultation bilaterally, Normal air movement Cardiovascular: Regular rate/rhythm, Normal S1 S2 Capillary refill: >2 Seconds Gastrointestinal: Soft and benign, Non-distended, W/out hepatosplenomegaly Musculoskeletal: No clubbing, No swelling Integumentary: No rashes Neurological: Other (Drowsy but arousable, moves all the limbs) Lymphatics: No axilla or inguinal lymphadenopathy - Studies Laboratory Data (last 24 hrs) 06/15/25 06/15/25 06/15/25 01:15 01:15 01:15 WBC 8.60 Hgb 16.5 Hct 50.1 H Plt Count 175 PT 16.3 H INR 1.46 Sodium 162 H* Potassium 3.3 L BUN 32 H Creatinine 0.97 Glucose 73 L Magnesium 2.5 H Total Bilirubin 0.8 AST 17 ALT 36 Alkaline Phosphatase 184 H Assessment and Plan 06/18 - Sodium down to 146 - Acute metabolic encephalopathy resolved - Continue Rocephin - Continue home blood pressure medication - Potassium replaced Hypernatremia: Sodium down to 149 Nephrology recommendations appreciated Monitor closely in telemetry Avoid nephrotoxic medications Acute encephalopathy metabolic History of dementia Improving. Now holding conversations CT head negative for acute change Abnormal UA Start Rocephin Continue with IV fluids Hypertension Antihypertensives titrated Continue home medications and titrate as needed Hyperlipidemia Continue statin Hypokalemia Replace potassium Electrolytes monitor and replace accordingly History of dementia COPD Continue home medications GI/DVT prophylaxis Advanced directive full code Discharge Plan: [facility] Plan to discharge in: 48 Hours - Advance Directives Does patient have a Living Will: Yes Does patient have a Durable POA for Healthcare: No - Code Status/Comfort Care Code Status: Full Code Time spent on the encounter, including patient evaluation, history taking, physical exam, medical decision making, coordination of care, and documentation, was 35 minutes. Time includes direct [id number] interaction with the patient and indirect time spent reviewing records, ordering tests, and discussing the care plan.
--- NOTE | 2025-06-18 21:27 | P.PN ---
Date of Service: 06/18/25 Vital Signs Temp Pulse Resp BP Pulse Ox 97.8 F 80 16 110/74 97 06/18/25 16:00 06/18/25 16:00 06/18/25 16:00 06/18/25 16:00 06/18/25 16:00 Medications Acetaminophen (Acetaminophen 325 Mg Tablet) 650 mg PO Q4HP PRN PRN Reason: Pain scale 2-4 (Mild) Amlodipine Besylate (Amlodipine 10 Mg Tab) 10 mg PO DAILY [facility] Apixaban (Apixaban 5 Mg Tablet) 5 mg PO BID [facility] Aspirin (Aspirin Ec 81 Mg Tab) 81 mg PO DAILY [facility] Atorvastatin Calcium (Atorvastatin 40 Mg Tab) 40 mg PO BEDTIME [facility] Calcium Carbonate (Calcium Carb 500mg/Vit D 200 Iu Tab) 1 tab PO BID [facility] Last Admin: 06/18/25 08:28 Dose: 1 tab Carvedilol (Carvedilol 6.25 Mg Tab) 6.25 mg PO BID [facility] Divalproex Sodium (Divalproex Na 125 Mg Cap) 375 mg PO BID [facility] Home Med (Fluticasone/Umeclidin/Vilanter [Trelegy Ellipta 200-62.5-25]) 1 each IH DAILY [facility] Ceftriaxone Sodium 1,000 mg/ (Sodium Chloride) 50 mls @ 100 mls/hr IVPB DAILY [facility]; Protocol Stop: 06/18/25 23:59 Last Admin: 06/18/25 08:27 Dose: 50 mls Dextrose/Water (Dextrose In Water (1-Liter)) 1,000 mls @ 75 mls/hr IV .[id number] [facility] Last Admin: 06/18/25 08:28 Dose: Not Given Mirtazapine (Mirtazapine 15 Mg Tab) 15 mg PO BEDTIME [facility] Ondansetron HCl (Ondansetron 4 Mg/2 Ml Vial) 4 mg IV Q6HP PRN PRN Reason: NAUSEA / VOMITING Assessment/ Plan: Nephrology No dyspnea No chest pain No acute events overnight Vitals, medications, blood work and imaging reviewed in the chart NAD. MMM. NCAT. Normal Respiratory Effort. S1S2. ND Abd. No C/C/E. No rash. AAO. Normal speech. Hypernatremia -Continue IVF Hypokalemia -Replete prn HTN -Continue Coreg -Continue Amlodipine Hypoalbuminemia -Recommend protein supplementation Metabolic Encephalopathy Hx of dementia -Continue supportive care Hospitalist note reviewed
[2025-06-18] MEDS: APIXABAN 5 MG TABLET PO SCH (21:37)
[2025-06-18] MEDS: ATORVASTATIN 40 MG TAB PO SCH (21:38)
[2025-06-18] MEDS: DIVALPROEX NA 125 MG CAP PO SCH (21:38)
[2025-06-18] MEDS: MIRTAZAPINE 15 MG TAB PO SCH (21:38)
[2025-06-19] MEDS: Fluticasone/Umeclidin/Vilanter [Trelegy Ellipta 200-62.5-25] Blst.W.Dev *PT OWN MED IH SCH (09:00)
[2025-06-19] MEDS: AMLODIPINE 10 MG TAB PO SCH (09:36)
[2025-06-19] MEDS: ASPIRIN EC 81 MG TAB PO SCH (09:36)
--- NOTE | 2025-06-19 11:00 | P.DS ---
Admission Date: 06/15/25 Discharge Date: 06/19/25 Disposition: TRANSFER TO [facility] Discharge Condition: GOOD Reason for Admission: Hypernatremia Brief History of Present Illness: 74-year-old man with a past medical history significant for dementia, COPD, Hypertension, hyperlipidemia, atrial fibrillation, GERD, osteoarthritis, CVA/TIA presented to the emergency department with elevated Sodium level and altered mental status. Patient is confused and could not offer any history hence most of the history is obtained from the chart review and also talking to the ER physician. No fever or chills. No chest pain or shortness of breath. Patient was assessed in the ER and was admitted for further management of hypernatremia and generalized weakness and altered mental status. On admission he was started on D5W. His sodium level improved over the course of his stay. In addition his metabolic encephalopathy resolved. He is now back to baseline levels. He will be discharged back to long-term care group home. He is medically optimized for discharge Hospital Course: Physical Examination - Vital Signs Temperature: 97.8 F Blood Pressure: 136/70 Pulse: 88 Respirations: 18 Pulse Ox (%): 94 - Physical Exam General: Alert and oriented x 3 HEENT: Atraumatic, Normocephalic Neck: Supple Respiratory: Clear to auscultation bilaterally, Normal air movement Cardiovascular: Regular rate/rhythm, Normal S1 S2 Capillary refill: >2 Seconds Gastrointestinal: Soft and benign, Non-distended, W/out hepatosplenomegaly Musculoskeletal: No clubbing, No swelling Integumentary: No rashes Neurological: Other (Drowsy but arousable, moves all the limbs) Lymphatics: No axilla or inguinal lymphadenopathy - Studies Laboratory Data (last 24 hrs) 06/15/25 06/15/25 06/15/25 01:15 01:15 01:15 WBC 8.60 Hgb 16.5 Hct 50.1 H Plt Count 175 PT 16.3 H INR 1.46 Sodium 162 H* Potassium 3.3 L BUN 32 H Creatinine 0.97 Glucose 73 L Magnesium 2.5 H Total Bilirubin 0.8 AST 17 ALT 36 Alkaline Phosphatase 184 H Assessment and Plan 06/18 - Sodium down to 146 - Acute metabolic encephalopathy resolved - Continue Rocephin - Continue home blood pressure medication - Potassium replaced Hypernatremia: Sodium down to 149 Nephrology recommendations appreciated Monitor closely in telemetry Avoid nephrotoxic medications Acute encephalopathy metabolic History of dementia Improving. Now holding conversations CT head negative for acute change Abnormal UA Start Rocephin Continue with IV fluids Hypertension Antihypertensives titrated Continue home medications and titrate as needed Hyperlipidemia Continue statin Hypokalemia Replace potassium Electrolytes monitor and replace accordingly History of dementia COPD Continue home medications GI/DVT prophylaxis Advanced directive full code Discharge Plan: [facility] Plan to discharge in: 48 Hours - Advance Directives Does patient have a Living Will: Yes Does patient have a Durable POA for Healthcare: No Vital Signs/Physical Exam: Temp Pulse Resp BP Pulse Ox 97.4 F 66 20 120/77 91 06/19/25 08:00 06/19/25 08:00 06/19/25 08:00 06/19/25 08:00 06/19/25 08:00 Laboratory Data at Discharge: WBC 7.40 thou/uL (4.3-10.9) 06/17/25 05:11 Hgb 13.3 g/dL (13.6-17.9) L 06/17/25 05:11 Hct 40.3 % (39.6-49.0) 06/17/25 05:11 Plt Count 137 thou/uL (152-406) L 06/17/25 05:11 PT 16.3 SECONDS (10-13.0) H 06/15/25 01:15 INR 1.46 06/15/25 01:15 Sodium 146 mEq/L (136-145) H 06/18/25 07:35 Potassium 3.9 mEq/L (3.5-5.1) 06/18/25 07:35 BUN 10 mg/dL (7-18) 06/18/25 07:35 Creatinine 0.58 mg/dL (0.70-1.30) L 06/18/25 07:35 Glucose 109 mg/dL (74-106) H 06/18/25 07:35 Magnesium 2.5 mg/dL (1.6-2.4) H 06/15/25 01:15 Total Bilirubin 0.6 mg/dL (0.2-1.0) 06/18/25 07:35 AST 11 U/L (15-37) L 06/18/25 07:35 ALT 26 U/L (16-61) 06/18/25 07:35 Alkaline Phosphatase 132 U/L (45-117) H 06/18/25 07:35 Home Medications: Apixaban [Eliquis] 5 mg PO BID 04/17/23 Aspirin [Aspirin EC 81 MG] 81 mg PO DAILY 04/17/23 Acetaminophen [Tylenol] 650 mg PO Q6HP PRN 10/27/23 Amlodipine [Norvasc*] 10 mg PO DAILY 10/27/23 Fluticasone/Umeclidin/Vilanter [Trelegy Ellipta 200-62.5-25] 1 each IH DAILY 10/27/23 Lidocaine 4% Patch [Lidoderm 5% Patch*] 1 patch TD Q12H 10/27/23 carvediloL [Carvedilol] 6.25 mg PO BID 10/27/23 cloNIDine HCL [Clonidine HCl] 0.1 mg PO Q8HP PRN 10/27/23 Atorvastatin Calcium [Lipitor] 40 mg PO BEDTIME tab 11/03/23 Multivitamin with Minerals [Multivitamins with Minerals] 1 each PO DAILY 01/06/24 Potassium Chloride 10 meq PO DAILY 01/06/24 Cholecalciferol (Vitamin D3) [Dialyvite Vitamin D3 Max] 50,000 unit PO SEECOM 06/16/25 Divalproex [Depakote Sprinkle] 3 cap PO BID 06/16/25 Mirtazapine [Remeron] 15 mg PO BEDTIME 06/16/25 Polyethyl Gly 3350 [Glycolax] 17 gm PO Q12HP PRN 06/16/25 Followup: OOT,OOT [Primary Care Provider] -
--- NOTE | 2025-06-19 13:14 | P.PN ---
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 The patient was started on hydration. Sodium started trending down. Physical Examination: Temp Pulse Resp BP Pulse Ox 97.4 F 66 20 120/77 91 06/19/25 08:00 06/19/25 08:00 06/19/25 08:00 06/19/25 08:00 06/19/25 08:00 Chest: Clear to auscultation. Heart: S1, S2. Regular. Systolic murmur. Abdomen: Soft, nontender. Extremities: No edema. Neuro: Pleasantly confused. Assessment And Plan: 1. Acute kidney injury secondary to prerenal, recovered, resolved. 2. Acidosis, resolved. 3. Hypernatremia secondary to depletional. We will continue D5. 4. Hypokalemia, will supplement.
[2025-06-19 13:46] VITALS: BP 111/73; TEMP 97.6
--- NOTE | 2025-06-19 19:58 | P.PN ---
Date of Service: 06/19/25 Vital Signs Temp Pulse Resp BP Pulse Ox 97.6 F 83 20 111/73 99 06/19/25 12:00 06/19/25 12:00 06/19/25 12:00 06/19/25 12:00 06/19/25 12:00 Assessment/ Plan: Nephrology No dyspnea No chest pain No acute events overnight Vitals, medications, blood work and imaging reviewed in the chart NAD. MMM. NCAT. Normal Respiratory Effort. S1S2. ND Abd. No C/C/E. No rash. AAO. Normal speech. Hypernatremia -Continue IVF Hypokalemia -Replete prn HTN -Continue Coreg -Continue Amlodipine Hypoalbuminemia -Recommend protein supplementation Metabolic Encephalopathy Hx of dementia -Continue supportive care Hospitalist note reviewed Case reviewed with hospitalist team
== END 2025-06-19 13:52 | DRG 640 ==
LOC: ER 01:24 → 2ND 05:36
PROVIDERS: ADMIT Family Medicine; ATTEND Family Medicine
DX: E87.0 Hyperosmolality and hypernatremia (principal); G93.41 Metabolic encephalopathy; N17.9 Acute kidney failure, unspecified; E87.6 Hypokalemia; I10 Essential (primary) hypertension; E78.5 Hyperlipidemia, unspecified; I48.91 Unspecified atrial fibrillation; E03.9 Hypothyroidism, unspecified; E86.0 Dehydration; E87.20 Acidosis, unspecified; K21.9 Gastro-esophageal reflux disease without esophagitis; M19.90 Unspecified osteoarthritis, unspecified site; E88.09 Other disorders of plasma-protein metabolism, not elsewhere classified; J44.9 Chronic obstructive pulmonary disease, unspecified; G30.9 Alzheimer's disease, unspecified; F02.80 Dementia in other diseases classified elsewhere, unspecified severity, without behavioral disturbance, psychotic disturbance, mood disturbance, and anxiety; F17.210 Nicotine dependence, cigarettes, uncomplicated; Z86.73 Personal history of transient ischemic attack (TIA), and cerebral infarction without residual deficits; Z88.8 Allergy status to other drugs, medicaments and biological substances; Z79.01 Long term (current) use of anticoagulants; Z79.82 Long term (current) use of aspirin; Z79.899 Other long term (current) drug therapy
CPT/HCPCS: 36415; 70450; 71045; 71250; 74176; 80048; 80053; 80076; 81001; 83735; 83880; 84132; 84295; 84484; 85025; 85610; 87086; 87088; 93005; 96360; 96361; 96372; 97161; 97530; 99285; J0696; J3480; J3486